=== PATIENT | male | born 1960 | race Caucasian/White ===

== ENCOUNTER 2019-10-28 13:33 | Outpatient (RCR) | payer MEDICARE, SELFPAY | END 2019-11-21 23:59 | disposition home or self-care (01) | LOC: SPT 13:33 | PROVIDERS: Family Provider Family Medicine; PCP Family Medicine; Referring Provider Specialist; Visit Provider Specialist | DX: S83.412D Sprain of medial collateral ligament of left knee, subsequent encounter (principal); X58.XXXD Exposure to other specified factors, subsequent encounter | CPT/HCPCS: 97110; 97161 ==

== ENCOUNTER → 2019-10-29 13:52 | Outpatient (BNVA) | payer MEDICARE, SELFPAY | PROVIDERS: Family Provider Family Medicine; PCP Family Medicine; Visit Provider Family Medicine | DX: J44.9 Chronic obstructive pulmonary disease, unspecified (principal); E78.5 Hyperlipidemia, unspecified; I10 Essential (primary) hypertension; E11.9 Type 2 diabetes mellitus without complications; F17.219 Nicotine dependence, cigarettes, with unspecified nicotine-induced disorders; D17.0 Benign lipomatous neoplasm of skin and subcutaneous tissue of head, face and neck | CPT/HCPCS: 36415; 80053; 80061; 82044; 83036; 85007; 85027 ==

== ENCOUNTER 2019-11-12 15:07 | Inpatient (IN) | payer MEDICARE, SELFPAY ==
[2019-11-12] VITALS (11 sets, daily range): BP systolic 154–197; BP diastolic 78–92; PULSE 83–98; RESP 17–25; TEMP 36.8–37; O2SAT 78–99; BMI 32.5
--- NOTE | 2019-11-12 15:29 | XRR_ITS ---
PROCEDURE INFORMATION: Exam: XR Chest, 1 View Exam date and time: 11/12/2019 4:34 PM Age: 59 years old Clinical indication: Cough and other: Congestion; Additional info: Dyspnea TECHNIQUE: Imaging protocol: XR of the chest Views: 1 view. COMPARISON: CR Chest 2 views* [id number] 07/01/2019 4:05 PM FINDINGS: Lungs: Right hilar and bilateral lower lobe vascular congestion. Pleural space: Unremarkable. No pleural effusion. No pneumothorax. Heart/Mediastinum: Unremarkable. No cardiomegaly. Bones/joints: Unremarkable. XR/XR chest 1V portable [id number] IMPRESSION: Right dale and bilateral lower lobe vascular congestion Otherwise No acute findings.
--- NOTE | 2019-11-12 15:31 | ECG_ITS ---
Measurements Intervals [place] Rate: 93 P: 69 HI: 183 QRS: -34 QRSD: 118 T: 69 QT: 372 QTc: 465 SINUS RHYTHM LEFT AXIS DEVIATION [QRS AXIS < -30] INCOMPLETE RIGHT BUNDLE BRANCH BLOCK [90+ ms QRS DURATION, TERMINAL R IN V1/V2, 40+ ms S IN I/aVL/V4/V5/V6] MINIMAL ST DEPRESSION [0.025+ mV ST DEPRESSION] Compared to ECG 10/25/2017 17:58:22 Left-axis deviation now present ST (T wave) deviation now present Electronically Signed On 11-12-2019 20:29:19 FELTING MACHINE OPERATOR HELPER by Elke Davila M.D. [id number]
--- NOTE | 2019-11-12 15:45 | W.ED.SOB ---
HPI - SOB/Dyspnea General: Chief Complaint: Shortness of Breath/Dyspnea Stated Complaint: SOB, 85 O2 and COPD Time Seen by Provider: 11/12/19 15:29 History of Present Illness: HPI Narrative: 59-year-old male presents with acute shortness of breath and hypoxia. He is recent diagnosis COPD does use inhaled medications at home and is on oxygen at home he does not have any nebulizers he has increase in productive discolored sputum over the last several days and a low-grade fever denies abdominal pain or chest pain. Associated symptoms: Reports chest pain, fever(s) and nausea; Deny abdominal pain, orthopnea or vomiting Review of Systems Const: Reports: fever, chills, body aches, change in appetite, fatigue and malaise ENMT: Reports: nasal discharge and nasal congestion; Denies: throat pain or ear pain Card: Reports: chest pain and shortness of breath on exertion; Denies: edema or shortness of breath when lying down Resp: Reports: shortness of breath and productive cough; Denies: non-productive cough GI: Reports: nausea; Denies: abdominal pain, vomiting, vomiting blood, coffee grounds in vomit, diarrhea, constipation, bloating, blood in stool or black tarry stool : Denies: flank pain, painful urination, urinary frequency or urinary urgency Skin/Breast: Denies: rash or itching PFSH ED PFSH: Statuses (acute, chronic, etc) shown below reflect problem list status as previously entered and may not be historically accurate Family History Father Diabetes Stroke Bleeding disorder Mother Diabetes Cancer SKIN Other CAD (coronary artery disease) Lung disease Denies family history of Anesthesia complication Social History Smoking and tobacco status: current every day smoker cigarettes Alcohol intake: never Household members: spouse Marital status: Current occupational status: disabled Physical Exam Const: COMMON NORMALS: no apparent distress GENERAL APPEARANCE: cooperative and comfortable ORIENTATION/CONSCIOUSNESS: Yes awake, Yes oriented to person, Yes oriented to place and Yes oriented to time HENMT: COMMON NORMALS: normocephalic, head/scalp atraumatic, hearing grossly normal bilaterally, external ears normal, EAC's normal, TM's normal bilaterally, nasal mucous membranes and turbinates normal, moist oral mucous membranes and oropharynx normal HEAD & SCALP: normocephalic and atraumatic NOSE: nasal mucous membranes and turbinates normal EXTERNAL EAR: Yes external ears normal EXTERNAL AUDITORY CANAL: EAC's normal TYMPANIC MEMBRANE: TM's normal bilaterally Eye: COMMON NORMALS: PERRL, EOMs intact bilaterally, conjunctivae normal and no scleral icterus CONJUNCTIVA: Yes conjunctivae normal PUPIL: Yes PERRL Neck/C-Spine: COMMON NORMALS: full ROM, no lymphadenopathy, supple and no JVD Lymph: LYMPHATIC: no lymphadenopathy noted and no lymphedema noted Resp: EFFORT & INSPECTION: No able to speak in complete sentences, Yes respiratory distress, Yes pursed lip breathing, Yes labored, Yes uses accessory muscles and Yes audible wheezes AUSCULTATION: rales diffuse and wheezes throughout Cardio: COMMON NORMALS: no JVD, regular rate, regular rhythm and no murmurs RATE: regular rate RHYTHM: regular rhythm GI: COMMON NORMALS: soft to palpation and no hepatosplenomegaly AUSCULTATION: Yes normoactive bowel sounds PALPATION: Yes soft, No tender, No guarding and Yes no hepatosplenomegaly Extremity: COMMON NORMALS: normal to inspection, normal capillary refill, no clubbing, cyanosis or edema, no calf tenderness and no pedal edema Neuro: SENSORIUM/ORIENTATION: Yes oriented to person, Yes oriented to place and Yes oriented to time Skin: COMMON NORMALS: no rashes or lesions noted GENERAL SKIN EXAM: no rashes or lesions noted Course Vital Signs: Vital signs: Vital Signs Temperature 97.7 F 11/14/19 11:30 Pulse Rate 93 11/14/19 11:30 Respiratory Rate 17 11/14/19 11:30 Blood Pressure 148/78 11/14/19 11:30 Pulse Oximetry 94 11/14/19 11:30 MDM - SOB/Dyspnea Lab Data: Labs: Lab Results 11/12/19 11/12/19 11/12/19 Range/Units 15:47 15:47 15:49 WBC 9.3 (4.0-10.0) 10^3/ uL RBC 4.52 (4.1-5.3) 10^6/u L Hgb 14.0 (11.7-16.6) g/dL Hct 42.3 (42.0-52.0) % MCV 93.6 (80-94) fL MCH 31.0 (28.0-34.0) pg MCHC 33.1 (30.0-36.0) g/dL RDW 13.5 (12.1-15.1) % Plt Count 187 (130-400) 10^3/c mm MPV 10.4 (7.4-10.4) fL Neut % (Auto) 70.5 % Lymph % (Auto) 22.2 % [place] % (Auto) 4.2 % Eos % (Auto) 2.2 % Baso % (Auto) 0.1 % Neut # (Auto) 6.5 (1.8-7.7) 10^3/u L Lymph # (Auto) 2.1 (0.8-4.8) 10^3/u L [place] # (Auto) 0.4 (0.2-0.9) 10^3/u L Eos # (Auto) 0.2 (0.0-0.8) 10^3/u L Baso # (Auto) 0.0 (0.0-0.1) 10^3/u L Nucleated RBC % (a uto) 0 % Nucleated RBCs # 0.0 /100WBC Specimen Type Arterial Sample Site Radial, right ABG pH 7.40 (7.35-7.45) ABG pCO2 48.1 H (35-45) mmHg ABG pO2 99.3 (80.0-100.0) mmH g ABG HCO3 30.0 H (22-26) mmol/L ABG Base Excess 4.2 H (-2.0-2.0) mmol/ L Jonathan Test Pos Hematocrit 43.5 (42-52) % Hgb O2 Saturation 96.6 (95-100) % Carboxyhemoglobin 0.9 (0.4-20.1) %THgb Methemoglobin 0.3 L (0.4-1.5) % Total Hemoglobin 14.2 (14-18) g/dL O2 Delivery Device Nrb O2 Liters/Min 15.0 % Business Intelligence Developer ID ed Sodium (136-145) mmol/L Potassium (3.5-5.1) mmol/L Chloride (98-107) mmol/L Carbon Dioxide (22-29) mmol/L Anion Gap (5-19) BUN (6-20) mg/dL Creatinine (0.7-1.2) mg/dL GFR Calculation (90-130) mL/min Glucose (74-109) mg/dL Lactate 3.1 H (0.5-2.2) mmol/L Calcium (8.6-10.0) mg/Dl Total Bilirubin (0.15-1.2) mg/dL AST (0-40) U/L ALT (0-41) U/L Alkaline Phosphata se (40-130) IU/L Troponin T Baselin e (0-15) ng/mL NT-Pro-B Natriuret Pep (0-125) pg/mL Total Protein (6.6-8.7) g/dL Albumin (3.5-5.2) g/dL Globulin (1.3-4.6) g/dL Influenza Type A A g (Negative) POC Influenza B Ag (Negative) 11/12/19 11/12/19 11/12/19 Range/Units 16:12 16:20 16:20 WBC (4.0-10.0) 10^3/ uL RBC (4.1-5.3) 10^6/u L Hgb (11.7-16.6) g/dL Hct (42.0-52.0) % MCV (80-94) fL MCH (28.0-34.0) pg MCHC (30.0-36.0) g/dL RDW (12.1-15.1) % Plt Count (130-400) 10^3/c mm MPV (7.4-10.4) fL Neut % (Auto) % Lymph % (Auto) % [place] % (Auto) % Eos % (Auto) % Baso % (Auto) % Neut # (Auto) (1.8-7.7) 10^3/u L Lymph # (Auto) (0.8-4.8) 10^3/u L [place] # (Auto) (0.2-0.9) 10^3/u L Eos # (Auto) (0.0-0.8) 10^3/u L Baso # (Auto) (0.0-0.1) 10^3/u L Nucleated RBC % (a uto) % Nucleated RBCs # /100WBC Specimen Type Sample Site ABG pH (7.35-7.45) ABG pCO2 (35-45) mmHg ABG pO2 (80.0-100.0) mmH g ABG HCO3 (22-26) mmol/L ABG Base Excess (-2.0-2.0) mmol/ L Jonathan Test Hematocrit (42-52) % Hgb O2 Saturation (95-100) % Carboxyhemoglobin (0.4-20.1) %THgb Methemoglobin (0.4-1.5) % Total Hemoglobin (14-18) g/dL O2 Delivery Device O2 Liters/Min % Business Intelligence Developer ID Sodium 134 L (136-145) mmol/L Potassium 3.6 (3.5-5.1) mmol/L Chloride 94 L (98-107) mmol/L Carbon Dioxide 27 (22-29) mmol/L Anion Gap 16.6 (5-19) BUN 8 (6-20) mg/dL Creatinine 0.8 (0.7-1.2) mg/dL GFR Calculation 99.6 (90-130) mL/min Glucose 204 H (74-109) mg/dL Lactate (0.5-2.2) mmol/L Calcium 9.0 (8.6-10.0) mg/Dl Total Bilirubin 0.5 (0.15-1.2) mg/dL AST 28 (0-40) U/L ALT 32 (0-41) U/L Alkaline Phosphata se 134 H (40-130) IU/L Troponin T Baselin e 12 (0-15) ng/mL NT-Pro-B Natriuret Pep (0-125) pg/mL Total Protein 6.2 L (6.6-8.7) g/dL Albumin 3.4 L (3.5-5.2) g/dL Globulin 2.8 (1.3-4.6) g/dL Influenza Type A A g Negative (Negative) POC Influenza B Ag Negative (Negative) 11/12/19 Range/Units 16:20 WBC (4.0-10.0) 10^3/ uL RBC (4.1-5.3) 10^6/u L Hgb (11.7-16.6) g/dL Hct (42.0-52.0) % MCV (80-94) fL MCH (28.0-34.0) pg MCHC (30.0-36.0) g/dL RDW (12.1-15.1) % Plt Count (130-400) 10^3/c mm MPV (7.4-10.4) fL Neut % (Auto) % Lymph % (Auto) % [place] % (Auto) % Eos % (Auto) % Baso % (Auto) % Neut # (Auto) (1.8-7.7) 10^3/u L Lymph # (Auto) (0.8-4.8) 10^3/u L [place] # (Auto) (0.2-0.9) 10^3/u L Eos # (Auto) (0.0-0.8) 10^3/u L Baso # (Auto) (0.0-0.1) 10^3/u L Nucleated RBC % (a uto) % Nucleated RBCs # /100WBC Specimen Type Sample Site ABG pH (7.35-7.45) ABG pCO2 (35-45) mmHg ABG pO2 (80.0-100.0) mmH g ABG HCO3 (22-26) mmol/L ABG Base Excess (-2.0-2.0) mmol/ L Jonathan Test Hematocrit (42-52) % Hgb O2 Saturation (95-100) % Carboxyhemoglobin (0.4-20.1) %THgb Methemoglobin (0.4-1.5) % Total Hemoglobin (14-18) g/dL O2 Delivery Device O2 Liters/Min % Business Intelligence Developer ID Sodium (136-145) mmol/L Potassium (3.5-5.1) mmol/L Chloride (98-107) mmol/L Carbon Dioxide (22-29) mmol/L Anion Gap (5-19) BUN (6-20) mg/dL Creatinine (0.7-1.2) mg/dL GFR Calculation (90-130) mL/min Glucose (74-109) mg/dL Lactate (0.5-2.2) mmol/L Calcium (8.6-10.0) mg/Dl Total Bilirubin (0.15-1.2) mg/dL AST (0-40) U/L ALT (0-41) U/L Alkaline Phosphata se (40-130) IU/L Troponin T Baselin e (0-15) ng/mL NT-Pro-B Natriuret Pep 407 H (0-125) pg/mL Total Protein (6.6-8.7) g/dL Albumin (3.5-5.2) g/dL Globulin (1.3-4.6) g/dL Influenza Type A A g (Negative) POC Influenza B Ag (Negative) Discharge Plan Discharge Patient Disposition: Admitted As Inpatient Admit Provider: Rico Hernandez Clinical Impression: Acute respiratory failure, COPD, moderate, Controlled type 2 diabetes mellitus, without long-term current use of insulin, Essential (primary) hypertension, Chronic back pain Condition: Stable Interventions: ED Discharge Assessment Last Done: 11/12/19 18:20 Discharge Date/Time: 11/12/19 19:01 Coding Level of Care Code ED Hooker Operator for Jens Boone Exam Problem Focused
[2019-11-12] MEDS: sodium chloride 0.9% 1,000 ML 999 ML IV (15:58)
[2019-11-12] MEDS: ondansetron 2 mg/ML SDV 2 mL 4 MG IVP (15:58)
[2019-11-12 16:01] LABS: ABG PCO2 48.1 mmHg (35-45); Arterial Blood Gas Hematocrit 43.5 % (42-52); Base Excess ABG 4.2 mmol/L (-2.0-2.0); Blood Gas Allen Test Pos; Blood Gas Sample Site Radial, right; Blood Gas Sample Type Arterial; Carboxyhemoglobin 0.9 %THgb (0.4-20.1); HGB O2 Sat 96.6 % (95-100); Methemoglobin 0.3 % (0.4-1.5); Oxygen Device NRB; PO2 ABG 99.3 mmHg (80.0-100.0); Total Hemoglobin 14.2 g/dL (14-18)
[2019-11-12 16:02] LABS: Basophils % 0.1 %; Eosinophils # 0.2 10^3/uL (0.0-0.8); Eosinophils % 2.2 %; Hematocrit 42.3 % (42.0-52.0); Lymphocytes # 2.1 10^3/uL (0.8-4.8); Lymphocytes % 22.2 %; Mean Corpuscular HGB Conc 33.1 g/dL (30.0-36.0); Mean Corpuscular Volume 93.6 fL (80-94); Mean Platelet Volume 10.4 fL (7.4-10.4); Monocytes # 0.4 10^3/uL (0.2-0.9); Monocytes % 4.2 %; Neutrophils # 6.5 10^3/uL (1.8-7.7); Neutrophils % 70.5 %; Nucleated Red Blood Cells % 0 %; Platelet Count 187 10^3/cmm (130-400); Red Blood Count 4.52 10^6/uL (4.1-5.3); Red Cell Distribution Width 13.5 % (12.1-15.1); White Blood Count 9.3 10^3/uL (4.0-10.0)
[2019-11-12 16:53] LABS: Influenza A by IFA Negative (Negative); Influenza B by IFA Negative (Negative)
[2019-11-12 17:06] LABS: Lactate (Lactic Acid level) 3.1 mmol/L (0.5-2.2)
[2019-11-12] MEDS: piperacillin-tazobactam 3.375 GM in sodium chloride 0.9% (plus) 50 ML IV (17:10)
--- NOTE | 2019-11-12 17:11 | PC.NURSE ---
pt on bipap ventilation
--- NOTE | 2019-11-12 17:11 | PC.NURSE ---
hospitalist (Dr. Hernandez) in to see pt in ER
[2019-11-12 17:12] LABS: Alanine Aminotransferase 32 U/L (0-41); Albumin Level 3.4 g/dL (3.5-5.2); Alkaline Phosphatase 134 IU/L (40-130); Anion Gap 16.6 (5-19); Aspartate Amino Transferase 28 U/L (0-40); Blood Urea Nitrogen 8 mg/dL (6-20); Carbon Dioxide 27 mmol/L (22-29); Chloride 94 mmol/L (98-107); Globulin 2.8 g/dL (1.3-4.6); Glomerular Filtration Rate 99.6 mL/min (90-130); Glucose 204 mg/dL (74-109); Potassium 3.6 mmol/L (3.5-5.1); Sodium 134 mmol/L (136-145); Total Bilirubin 0.5 mg/dL (0.15-1.2); Total Protein 6.2 g/dL (6.6-8.7)
[2019-11-12 17:14] LABS: Troponin(5th) Baseline 12 ng/mL (0-15)
--- NOTE | 2019-11-12 17:31 | ECG_ITS ---
Measurements Intervals [place] Rate: 92 P: 68 [place]: 182 QRS: -33 QRSD: 114 T: 61 QT: 386 QTc: 478 SINUS RHYTHM MARKED LEFT AXIS DEVIATION [QRS AXIS < -30] INCOMPLETE RIGHT BUNDLE BRANCH BLOCK [90+ ms QRS DURATION, TERMINAL R IN V1/V2, 40+ ms S IN I/aVL/V4/V5/V6] Compared to ECG 10/25/2017 17:58:22 Left-axis deviation now present Electronically Signed On 11-12-2019 20:36:26 POST HOLE DIGGING MACHINE OPERATOR by Elke Davila M.D. [id number]
[2019-11-12] MEDS: labetalol 5 mg/mL SDV 20mL 20 MG IVP ×2 (17:40→21:22)
[2019-11-12] MEDS: levofloxacin-dextrose 5 % 750 MG/150 ML PREMIX 150 MG IV (17:46)
[2019-11-12 18:26] LABS: Troponin 5 2HR 11.69 ng/mL (0-15)
[2019-11-12 18:27] LABS: Troponin 5 2HR Delta -0.31 ABS# (0-10)
--- NOTE | 2019-11-12 18:31 | PM.HP ---
Providers/Chief Complaint Admitting Physician: Rico Hernandez MD Primary Care Provider: Madeline Shields DO Chief Complaint: SOB, 85 O2 and COPD History of Present Illness Troy Goode is a 59 year old male with a past medical history of COPD, current smoker, chronic back pain on multiple medications including opiates, type 2 diabetes mellitus, hyperlipidemia, hypertension who presents to the emergency room due to complaints of shortness of breath, cough, fevers. Patient's is at bedside, as patient is on BiPAP, most of the history was provided by her. Patient was able to add to the history. Patient states that he has had a cough, productive yellow-green sputum, shortness of breath with exertion, intermittent fevers, chills for the last week or so. Symptoms progressively got worse, they were planning on coming to the emergency room the last 2 days, but due to the wait time they decided to stay at home. Patient's is sick with a cough runny nose. Patient presented to Dr. Shields's office this morning, was given antibiotics, steroids, and advised that if his symptoms were to worsen he should go to the emergency room. Unfortunately patient over the afternoon became more short of breath, short of breath at rest so his brought him to the emergency room. Denies chest pain. Is a current smoker. No oxygen use at home. No history of heart failure. No history of CAD. Review of Systems Const: Reports: fever and chills Eyes: Denies: blurry vision ENMT: Reports: throat pain Card: Denies: chest pain or palpitations Resp: Reports: shortness of breath, productive cough and change in phlegm color GI: Denies: abdominal pain, nausea or vomiting : Denies: flank pain or difficulty urinating Musc: Denies: neck pain or back pain Skin/Breast: Denies: rash Neuro: Denies: headache Endo: Denies: excessive urination or excessive thirst Medications/Allergies Allergies Allergy/AdvReac Type Severity Reaction Status Date / Time amitriptyline Allergy ALGY-Conges Verified 11/12/19 10:28 sonia metformin Allergy ADR-Diarrhe Verified 11/12/19 10:28 a temazepam Allergy ALGY-Conges Verified 11/12/19 10:28 sonia Additional Medication Information Additional Medication Information: Albuterol Atenolol 50 mg once daily Atorvastatin 40 g once daily baclofen 20 mg 4 times daily Duloxetine 60 mg twice daily Lasix 20 mg in the morning Glipizide 5 mg once daily Meloxicam 50 mg once daily Morphine 15 mg immediate release 5 times daily as needed Morphine 60 mg extended release 24-hour 60 mg twice daily Lyrica 150 mg 4 times daily Trazodone 200 mg q. nightly Verapamil 240 mg p.o. every morning PFSH Acute PFSH: Statuses (acute, chronic, etc) shown below reflect problem list status as previously entered and may not be historically accurate Medical History (Updated 11/12/19 @ 18:38 by Rico Hernandez MD) Chronic back pain (Acute) Controlled type 2 diabetes mellitus, without long-term current use of insulin (Chronic) COPD, moderate (Chronic) Dyslipidemia (Chronic) Essential (primary) hypertension (Chronic) Gastritis (Acute) Hypothyroidism, unspecified (Acute) Vitamin D deficiency (Acute) Surgical History H/O circumcision (Acute) H/O colonoscopy (Acute) 11/20/2016 H/O esophagogastroduodenoscopy (Acute) 2014 H/O knee surgery (Acute) H/O oral surgery (Acute) H/O shoulder surgery (Acute) left to remove mass History of back surgery (Acute) Social History Smoking and tobacco status: current every day smoker cigarettes Alcohol intake: never Household members: spouse Marital status: Current occupational status: disabled Vitals/I&O/Wt Last Vital Signs Temp 98.3 F 11/12/19 15:34 Pulse 94 11/12/19 18:09 Resp 25 H 11/12/19 17:11 BP 192/92 11/12/19 17:11 Pulse Ox 94 11/12/19 18:09 Weight last 48 hrs Weight 94.347 kg Physical Exam Const: COMMON NORMALS: no apparent distress and oriented x3 HENMT: COMMON NORMALS: normocephalic Eye: COMMON NORMALS: PERRL and EOMs intact bilaterally Neck/C-Spine: COMMON NORMALS: full ROM, no lymphadenopathy and no JVD Lymph: LYMPHATIC: no lymphadenopathy noted Chest: COMMONS NORMALS: inspection of chest normal Resp: COMMON NORMALS: normal respiratory effort, no retractions, no use of accessory muscles and clear to auscultation bilaterally Cardio: COMMON NORMALS: no JVD, regular rate, regular rhythm, S1 normal heart sound, S2 normal heart sound and no gallops GI: COMMON NORMALS: normal to inspection, nondistended, normoactive bowel sounds, soft to palpation, non-tender and no hepatosplenomegaly : COMMON NORMALS: Yes no CVA tenderness Back/Pelvis: COMMON NORMALS: no CVA tenderness Extremity: COMMON NORMALS: normal capillary refill, no clubbing, cyanosis or edema and no pedal edema Neuro: COMMON NORMALS: oriented x3, CN's II-XII intact bilaterally and moves all extremities Skin: COMMON NORMALS: no rashes or lesions noted Data : 11/12/19 15:47 11/12/19 16:20 CXR: Radiologist's impression: IMPRESSION: Right dale and bilateral lower lobe vascular congestion Otherwise No acute findings. A&P Assessment and plan (1) Acute respiratory failure: -Acute respiratory failure secondary to COPD exacerbation and bilateral lower lobe pneumonia Plan: -Admit to general medical floors -BiPAP -Telemetry monitoring -Solu-Medrol -Nebulizer treatments -Azithromycin and Rocephin -Monitor respiratory status closely Status: Acute Code(s): J96.00 - Acute respiratory failure, unspecified whether with hypoxia or hypercapnia (2) COPD, moderate: Status: Chronic Code(s): J44.9 - Chronic obstructive pulmonary disease, unspecified (3) Controlled type 2 diabetes mellitus, without long-term current use of insulin: -Low-dose sliding scale Status: Chronic Qualifiers: Diabetes mellitus complication status: without complication Qualified Code(s): E11.9 - Type 2 diabetes mellitus without complications Code(s): E11.9 - Type 2 diabetes mellitus without complications (4) Essential (primary) hypertension: Status: Chronic Code(s): I10 - Essential (primary) hypertension (5) Chronic back pain: -Patient is on morphine 60 mg extended release twice daily, immediate release 15 mg 4 times daily, Lyrica 150 mg 4 times daily, meloxicam, baclofen -Which carries a high risk of respiratory depression given his acute respiratory failure as above -But has has been on this medication for some time, he has a high risk of withdrawal -Will monitor respiratory status very closely, and hold medications if required, but only for short time Status: Acute Code(s): M54.9 - Dorsalgia, unspecified; G89.29 - Other chronic pain (6) Dyslipidemia: Status: Chronic Code(s): E78.5 - Hyperlipidemia, unspecified (7) Nicotine dependence, cigarettes, with unspecified nicotine-induced disorders: Status: Chronic Code(s): F17.219 - Nicotine dependence, cigarettes, with unspecified nicotine-induced disorders Attestations Medical Necessity Statement*: Patient requires hospitalization, inpatient, greater than 2 midnights, acute respiratory failure secondary to pneumonia COPD exacerbation Coding Level of Care Code Acute Traffic Investigator for [facility] Diagnoses Acute respiratory failure J96.00 COPD, moderate J44.9 Controlled type 2 diabetes mellitus, without long-term current use of insulin E11.9 Diabetes mellitus complication status: without complication Essential (primary) hypertension I10 Chronic back pain M54.9; G89.29 Dyslipidemia E78.5 Nicotine dependence, cigarettes, with unspecified nicotine-induced disorders F17.219
[2019-11-12 19:14] LABS: NT Pro B Type Natriuretic Pept 407 pg/mL (0-125)
[2019-11-12] MEDS: duloxetine 60 mg Capsule PO (19:36)
[2019-11-12] MEDS: morphine IR 15 mg Tablet PO (19:36)
[2019-11-12] MEDS: ondansetron 4 MG Tablet PO (19:36)
[2019-11-12] MEDS: enoxaparin 40 mg/0.4 mL Syringe SUBCUT (19:37)
[2019-11-12] MEDS: D5-NS 0.45% + KCL 20 mEq 20 MEQ/1,000 ML BAG 100 MEQ IV (19:37)
[2019-11-12] MEDS: tamsulosin 0.4 mg Capsule PO (19:37)
[2019-11-12 20:49] LABS: NT Pro B Type Natriuretic Pept 366 pg/mL (0-125)
[2019-11-12] MEDS: pregabalin 150 mg Capsule PO (21:12)
[2019-11-12] MEDS: sodium chloride 0.9% 1,000 ML 75 ML IV (21:12)
[2019-11-12] MEDS: baclofen 10 mg Tablet 20 MG PO (21:12)
[2019-11-12 21:43] LABS: Glucose Point of Care 303 mg/dL (70-110)
[2019-11-12] MEDS: ipratropium-albuterol 3 mL Neb INHALATION (21:56)
[2019-11-12 22:39] LABS: Troponin 5 6HR 11.48 ng/L (0-15)
[2019-11-12 22:53] LABS: Troponin 5 6HR Delta -0.52 ng/L (0-12)
[2019-11-12] MEDS: trazodone 100 mg Tablet 200 MG PO (23:27)
[2019-11-13] VITALS (19 sets, daily range): BP systolic 133–184; BP diastolic 75–91; PULSE 71–98; RESP 17–22; TEMP 36.5–37.1; O2SAT 91–98
[2019-11-13] MEDS: ipratropium-albuterol 3 mL Neb INHALATION ×6 (01:30→19:45)
[2019-11-13] MEDS: acetaminophen 325 mg Tablet 650 MG PO (05:30)
[2019-11-13] MEDS: FUROsemide 20 mg Tablet PO (05:31)
[2019-11-13 05:36] LABS: Basophils % 0.2 %; Hematocrit 41.7 % (42.0-52.0); Hemoglobin 13.6 g/dL (11.7-16.6); Lymphocytes # 2.5 10^3/uL (0.8-4.8); Lymphocytes % 21.1 %; Mean Corpuscular HGB Conc 32.6 g/dL (30.0-36.0); Mean Corpuscular Hemoglobin 29.8 pg (28.0-34.0); Mean Corpuscular Volume 91.2 fL (80-94); Monocytes # 0.4 10^3/uL (0.2-0.9); Monocytes % 3.3 %; Neutrophils # 8.9 10^3/uL (1.8-7.7); Neutrophils % 74.7 %; Nucleated Red Blood Cells % 0 %; Platelet Count 198 10^3/cmm (130-400); Red Blood Count 4.57 10^6/uL (4.1-5.3); Red Cell Distribution Width 13.6 % (12.1-15.1); White Blood Count 11.9 10^3/uL (4.0-10.0)
[2019-11-13 05:53] LABS: Alanine Aminotransferase 31 U/L (0-41); Albumin Level 3.7 g/dL (3.5-5.2); Alkaline Phosphatase 143 IU/L (40-130); Anion Gap 15.4 (5-19); Aspartate Amino Transferase 25 U/L (0-40); Blood Urea Nitrogen 11 mg/dL (6-20); Calcium 9.3 mg/Dl (8.6-10.0); Carbon Dioxide 28 mmol/L (22-29); Chloride 103 mmol/L (98-107); Globulin 3.2 g/dL (1.3-4.6); Glucose 227 mg/dL (74-109); Magnesium 2.3 mg/dL (1.7-2.3); Phosphorus 3.2 mg/dL (2.5-4.5); Potassium 4.4 mmol/L (3.5-5.1); Sodium 142 mmol/L (136-145); Total Bilirubin 0.3 mg/dL (0.15-1.2); Total Protein 6.9 g/dL (6.6-8.7)
[2019-11-13 06:58] LABS: Glucose Point of Care 248 mg/dL (70-110)
[2019-11-13] MEDS: morphine ER (12 HR) 30 mg tablet 60 MG PO ×2 (09:17→17:51)
[2019-11-13] MEDS: meloxicam 7.5 mg tablet 15 MG PO (09:17)
[2019-11-13] MEDS: tamsulosin 0.4 mg Capsule PO ×2 (09:17→17:51)
[2019-11-13] MEDS: atorvastatin 40 mg Tablet PO (09:18)
[2019-11-13] MEDS: ferrous sulfate EC 325 mg Tablet PO (09:18)
[2019-11-13] MEDS: pregabalin 150 mg Capsule PO ×4 (09:18→20:39)
[2019-11-13] MEDS: atenolol 50 mg Tablet PO (09:18)
[2019-11-13] MEDS: duloxetine 60 mg Capsule PO ×2 (09:18→17:51)
[2019-11-13] MEDS: sodium chloride 0.9% 1,000 ML 75 ML IV (09:19)
[2019-11-13] MEDS: azithromycin 500 MG in sodium chloride 0.9% 250 ML 250 MG IV (09:35)
[2019-11-13] MEDS: verapamil ER 240 mg Tablet PO (09:40)
[2019-11-13] MEDS: cholecalciferol (vitamin D3) 5,000 unit Tablet 5000 UNIT PO (09:40)
--- NOTE | 2019-11-13 10:36 | CT_ITS ---
WS: [id number] CTA OF THE CHEST WITH PULMONARY EMBOLISM PROTOCOL TECHNIQUE: High-resolution contrast enhanced CTA of the chest with coronal and sagittal reformatted i mages with pulmonary embolism protocol. MIP images are also reviewed. CLINICAL INFORMATION: r/o PE COMPARISON: October 25, 2017 DLP: 1167.[address] scans at [facility] use at least one of these dose optimization techniques: automat ed exposure control; mA and/or kV adjustment per patient size (includes targeted exams where dose is matched to clinical indication); or iterative reconstruction. FINDINGS: Proximal main pulmonary arteries are normal. Segmental and subsegmental pulmonary arteries are normal . No evidence for pulmonary embolus. Normal caliber thoracic aorta. No mediastinal or hilar lymphaden opathy. Normal endobronchial tree. Subsegmental atelectasis left lung base. Hazy groundglass infiltrates within the right upper lobe. Gr oundglass and tree-in-bud infiltrates in both lower lobes can be seen with pneumonitis or bronchiolit is. No focal consolidation. Adrenal glands are normal. Small esophageal hiatal hernia. Splenic granulomas. CT/CT angio chest PE protcl [id number] IMPRESSION: 1. No evidence of pulmonary embolus. 2. Hazy groundglass infiltrates within the right upper lobe. Tree-in-bud infil trates in both lower lobes. Findings can be seen with pneumonitis and bronchiol itis. 3. Subsegmental atelectasis left lung base. 4. No focal consolidation.
[2019-11-13] MEDS: cefTRIAXone 1,000 MG in sodium chloride 0.9% (plus) 50 ML 100 MG IV (11:36)
[2019-11-13] MEDS: iohexol 350 mg/mL 100 mL Btl IV ×2 (12:14→12:22)
[2019-11-13 12:30] LABS: Glucose Point of Care 173 mg/dL (70-110)
--- NOTE | 2019-11-13 14:46 | PM.PN ---
Subjective Subjective: Interval history: This morning patient states that his breathing has improved, still requiring up to 5 L oxygen, had poor sleep last night, no chest pain, no palpitations, Vitals/I&O/Wt Last Vital Signs Temp 97.7 F 11/13/19 11:59 Pulse 80 11/13/19 11:59 Resp 18 11/13/19 11:59 BP 150/80 11/13/19 11:59 Pulse Ox 92 11/13/19 11:43 11/12/19 11/13/19 11/13/19 22:59 06:59 14:59 Intake Total 158.333 / 158.333 240 / 398.333 908.75 / 908.75 Output Total 960 / 960 1920 / 2880 750 / 750 Balance -801.667 / -801.667 -1680 / -2481.667 158.75 / 158.75 Weight last 48 hrs Weight 94.347 kg Physical Exam Const: COMMON NORMALS: no apparent distress and oriented x3 HENMT: COMMON NORMALS: normocephalic HEAD & SCALP: normocephalic Neck/C-Spine: COMMON NORMALS: no JVD Lymph: LYMPHATIC: no lymphadenopathy noted Chest: COMMONS NORMALS: inspection of chest normal Resp: COMMON NORMALS: normal respiratory effort, no retractions, no use of accessory muscles and clear to auscultation bilaterally AUSCULTATION: clear to auscultation bilaterally Cardio: COMMON NORMALS: no JVD, regular rate, regular rhythm, S1 normal heart sound, S2 normal heart sound and no gallops RATE: regular rate RHYTHM: regular rhythm HEART SOUNDS: S1 normal and S2 normal GI: COMMON NORMALS: normal to inspection, nondistended, normoactive bowel sounds, soft to palpation, non-tender and no hepatosplenomegaly PALPATION: Yes soft and Yes no hepatosplenomegaly Neuro: COMMON NORMALS: oriented x3 Data : 11/13/19 05:25 11/13/19 05:25 Micro: Microbiology 11/12/19 23:00 MRSA Culture - Final Nose A&P Assessment and plan (1) Acute respiratory failure: -Acute respiratory failure secondary to COPD exacerbation and bilateral lower lobe pneumonia Plan: -Admit to general medical floors -BiPAP PRN -Telemetry monitoring -Solu-Medrol -Nebulizer treatments -Azithromycin and Rocephin -Monitor respiratory status closely -We will do CT Dianne of the chest to rule out pulmonary embolism Status: Acute Code(s): J96.00 - Acute respiratory failure, unspecified whether with hypoxia or hypercapnia (2) COPD, moderate: Status: Chronic Code(s): J44.9 - Chronic obstructive pulmonary disease, unspecified (3) Controlled type 2 diabetes mellitus, without long-term current use of insulin: -Low-dose sliding scale Status: Chronic Qualifiers: Diabetes mellitus complication status: without complication Qualified Code(s): E11.9 - Type 2 diabetes mellitus without complications Code(s): E11.9 - Type 2 diabetes mellitus without complications (4) Essential (primary) hypertension: Status: Chronic Code(s): I10 - Essential (primary) hypertension (5) Chronic back pain: -Patient is on morphine 60 mg extended release twice daily, immediate release 15 mg 4 times daily, Lyrica 150 mg 4 times daily, meloxicam, baclofen -Which carries a high risk of respiratory depression given his acute respiratory failure as above -But has has been on this medication for some time, he has a high risk of withdrawal -Will monitor respiratory status very closely, and hold medications if required, but only for short time Status: Acute Code(s): M54.9 - Dorsalgia, unspecified; G89.29 - Other chronic pain (6) Dyslipidemia: Status: Chronic Code(s): E78.5 - Hyperlipidemia, unspecified (7) Nicotine dependence, cigarettes, with unspecified nicotine-induced disorders: Status: Chronic Code(s): F17.219 - Nicotine dependence, cigarettes, with unspecified nicotine-induced disorders Attestations Medical Necessity Statement*: She requires continued hospitalization due to acute respiratory failure Coding Level of Care Code Acute Community Aide for [facility] Diagnoses Acute respiratory failure J96.00 COPD, moderate J44.9 Controlled type 2 diabetes mellitus, without long-term current use of insulin E11.9 Diabetes mellitus complication status: without complication Essential (primary) hypertension I10 Chronic back pain M54.9; G89.29 Dyslipidemia E78.5 Nicotine dependence, cigarettes, with unspecified nicotine-induced disorders F17.219
[2019-11-13 17:16] LABS: Glucose Point of Care 525 mg/dL (70-110)
[2019-11-13 17:16] LABS: Glucose Point of Care 233 mg/dL (70-110)
[2019-11-13] MEDS: trazodone 100 mg Tablet 200 MG PO (20:39)
[2019-11-13] MEDS: enoxaparin 40 mg/0.4 mL Syringe SUBCUT (20:39)
[2019-11-13 20:41] LABS: Glucose Point of Care 271 mg/dL (70-110)
[2019-11-14] VITALS (19 sets, daily range): BP systolic 148–178; BP diastolic 52–96; PULSE 67–93; RESP 17–22; TEMP 36.5–37; O2SAT 91–98
[2019-11-14] MEDS: ipratropium-albuterol 3 mL Neb INHALATION ×6 (00:45→20:18)
[2019-11-14] MEDS: sodium chloride 0.9% 1,000 ML 75 ML IV ×2 (04:21→21:03)
[2019-11-14] MEDS: FUROsemide 20 mg Tablet PO (05:50)
[2019-11-14 06:17] LABS: Magnesium 2.4 mg/dL (1.7-2.3); Phosphorus 3.6 mg/dL (2.5-4.5)
[2019-11-14 06:38] LABS: Glucose Point of Care 227 mg/dL (70-110)
[2019-11-14] MEDS: azithromycin 500 MG in sodium chloride 0.9% 250 ML 250 MG IV (08:13)
[2019-11-14] MEDS: duloxetine 60 mg Capsule PO ×2 (08:22→17:24)
[2019-11-14] MEDS: morphine ER (12 HR) 30 mg tablet 60 MG PO ×2 (08:22→17:25)
[2019-11-14] MEDS: tamsulosin 0.4 mg Capsule PO ×2 (08:22→17:25)
[2019-11-14] MEDS: atorvastatin 40 mg Tablet PO (08:22)
[2019-11-14] MEDS: meloxicam 7.5 mg tablet 15 MG PO (08:24)
[2019-11-14] MEDS: atenolol 50 mg Tablet PO (08:24)
[2019-11-14] MEDS: pregabalin 150 mg Capsule PO ×4 (08:24→22:00)
[2019-11-14] MEDS: ferrous sulfate EC 325 mg Tablet PO (08:24)
[2019-11-14] MEDS: cefTRIAXone 1,000 MG in sodium chloride 0.9% (plus) 50 ML 100 MG IV (09:51)
[2019-11-14] MEDS: verapamil ER 240 mg Tablet PO (09:55)
[2019-11-14] MEDS: cholecalciferol (vitamin D3) 5,000 unit Tablet 5000 UNIT PO (09:55)
[2019-11-14 11:02] LABS: Glucose Point of Care 212 mg/dL (70-110)
--- NOTE | 2019-11-14 13:03 | PC.CHAP ---
Pastoral Care Encounter/Spiritual Assessment Type of Contact [] Declined office system analyst visit [] Patient/Family/Request visit [] Outpatient visit [] Follow-up visit [] Physician referral [] Code/Alert [x] Routine visit [] Staff referral [] Actively dying [] Patient sleeping [] Family support [] [] Out of room [] Palliative care [] [] Receiving care in room [] Pre-surgical visit [] Trauma [] Long length of stay [] ICU visit [] Other: Relational/Emotional Strength [x] Patient feels connected with others/family/visitors/staff [] Distress [] Loneliness/isolation [] Abandonment Spirituality of Patient [x] Person of Maricel [x] Attends Congregational of their Maric[place] [xx] Believes in Prayer [x] Reads Bible or Mandaeism materials [] There are Spiritual issues to be addressed Spanisher Interventions [x] Prayer [x] Active listening [x] Non-anxious presence [x] Spiritual/emotional support [] Crisis/trauma care [x] Spiritual counseling [] Bereavement support [] Provided bereavement packet [] Provided Bible/devotional materials [] Provided toy/stuffed animal, coloring book to patient or family member [] Completed spiritual assessment [] Provided Communion [] Anointing/Jackson [] Salvation [] Other: Impact on Illness or Injury [] Angry [] Fearful [] Anxious [] Often cries [] Exhaustion [] Unable to work [] Unable to attend quaker [] Unable to walk/stand [] Unable to read [] Unable to drive [] Unable to eat/drink [] Unable to sleep [] Unable to be with family [x] Other: Summary Patient is strong in his Orthodox maricel. Time spent with patient 10-Minutes
--- NOTE | 2019-11-14 14:12 | P.PN_ITS ---
Subjective Subjective: Interval history: Patient states that his breathing has improved, still requiring up to 4 L nasal cannula, still having some wheezing, cough Vitals/I&O/Wt Last Vital Signs Temp 97.7 F 11/14/19 11:30 Pulse 93 11/14/19 11:30 Resp 17 11/14/19 11:30 BP 148/78 11/14/19 11:30 Pulse Ox 94 11/14/19 11:30 11/13/19 11/14/19 11/14/19 22:59 06:59 14:59 Intake Total 1240 / 2448.75 1477.5 / 1477.5 Output Total 360 / 1110 Balance 1240 / 1698.75 -360 / 1338.75 1477.5 / 1477.5 Weight last 48 hrs Weight 94.347 kg Physical Exam Const: COMMON NORMALS: no apparent distress and oriented x3 HENMT: COMMON NORMALS: normocephalic HEAD & SCALP: normocephalic Neck/C-Spine: COMMON NORMALS: no JVD Resp: COMMON NORMALS: normal respiratory effort and no retractions AUSCULTATION: wheezes Cardio: COMMON NORMALS: no JVD, regular rate, regular rhythm, S1 normal heart sound and S2 normal heart sound RATE: regular rate RHYTHM: regular rhythm HEART SOUNDS: S1 normal and S2 normal GI: COMMON NORMALS: normal to inspection, nondistended, normoactive bowel sounds, soft to palpation, non-tender, no hepatosplenomegaly, no masses and no bruits PALPATION: Yes soft and Yes no hepatosplenomegaly Extremity: COMMON NORMALS: normal capillary refill, no clubbing, cyanosis or edema, no calf tenderness and no pedal edema Neuro: COMMON NORMALS: oriented x3 Psych: COMMON NORMALS: mental status grossly normal Data : 11/13/19 05:25 11/13/19 05:25 Micro: Microbiology 11/12/19 23:00 MRSA Culture - Final Nose A&P Assessment and plan (1) Acute respiratory failure: -Acute respiratory failure secondary to COPD exacerbation and bilateral lower lobe pneumonia Plan: -Admit to general medical floors -BiPAP PRN -Telemetry monitoring -Solu-Medrol -Nebulizer treatments -Azithromycin and Rocephin -Monitor respiratory status closely Status: Acute Code(s): J96.00 - Acute respiratory failure, unspecified whether with hypoxia or hypercapnia (2) COPD, moderate: Status: Chronic Code(s): J44.9 - Chronic obstructive pulmonary disease, unspecified (3) Controlled type 2 diabetes mellitus, without long-term current use of insulin: -Low-dose sliding scale Status: Chronic Code(s): E11.9 - Type 2 diabetes mellitus without complications (4) Essential (primary) hypertension: Status: Chronic Code(s): I10 - Essential (primary) hypertension (5) Chronic back pain: -Patient is on morphine 60 mg extended release twice daily, immediate release 15 mg 4 times daily, Lyrica 150 mg 4 times daily, meloxicam, baclofen -Which carries a high risk of respiratory depression given his acute respiratory failure as above -But has has been on this medication for some time, he has a high risk of withdrawal -Will monitor respiratory status very closely, and hold medications if required, but only for short time Status: Acute Code(s): M54.9 - Dorsalgia, unspecified; G89.29 - Other chronic pain (6) Dyslipidemia: Status: Chronic Code(s): E78.5 - Hyperlipidemia, unspecified (7) Nicotine dependence, cigarettes, with unspecified nicotine-induced disorders: Status: Chronic Code(s): F17.219 - Nicotine dependence, cigarettes, with unspecified nicotine-induced disorders Attestations Medical Necessity Statement*: Patient requires continued hospitalization for acute respiratory failure secondary to pneumonia and COPD Coding Level of Care Code Acute Rope Machine Setter for [facility] Diagnoses Acute respiratory failure J96.00 COPD, moderate J44.9 Controlled type 2 diabetes mellitus, without long-term current use of insulin E11.9 Essential (primary) hypertension I10 Chronic back pain M54.9; G89.29 Dyslipidemia E78.5 Nicotine dependence, cigarettes, with unspecified nicotine-induced disorders F17.219
[2019-11-14] MEDS: guaiFENesin 600 mg Tablet PO (17:24)
--- NOTE | 2019-11-14 17:29 | PC.RESP ---
Patient given information on Smoking Cessation and Pulmonary Rehab
[2019-11-14 17:30] LABS: Glucose Point of Care 184 mg/dL (70-110)
[2019-11-14] MEDS: enoxaparin 40 mg/0.4 mL Syringe SUBCUT (19:44)
[2019-11-14 21:40] LABS: Glucose Point of Care 170 mg/dL (70-110)
[2019-11-14] MEDS: trazodone 100 mg Tablet 200 MG PO (22:00)
[2019-11-14] MEDS: morphine IR 15 mg Tablet PO (22:01)
[2019-11-14] MEDS: baclofen 10 mg Tablet 20 MG PO (22:01)
[2019-11-15] VITALS (26 sets, daily range): BP systolic 122–197; BP diastolic 68–97; PULSE 62–90; RESP 16–22; TEMP 36.1–36.8; O2SAT 91–97
[2019-11-15] MEDS: ipratropium-albuterol 3 mL Neb INHALATION ×7 (00:20→23:20)
[2019-11-15] MEDS: FUROsemide 20 mg Tablet PO (06:22)
[2019-11-15 06:39] LABS: Magnesium 2.5 mg/dL (1.7-2.3)
[2019-11-15 06:46] LABS: Glucose Point of Care 260 mg/dL (70-110)
[2019-11-15] MEDS: azithromycin 500 MG in sodium chloride 0.9% 250 ML 250 MG IV (08:54)
[2019-11-15] MEDS: morphine ER (12 HR) 30 mg tablet 60 MG PO ×2 (09:04→17:53)
[2019-11-15] MEDS: ferrous sulfate EC 325 mg Tablet PO (09:04)
[2019-11-15] MEDS: cholecalciferol (vitamin D3) 5,000 unit Tablet 5000 UNIT PO (09:04)
[2019-11-15] MEDS: duloxetine 60 mg Capsule PO ×2 (09:04→17:54)
[2019-11-15] MEDS: guaiFENesin 600 mg Tablet PO ×2 (09:04→17:53)
[2019-11-15] MEDS: verapamil ER 240 mg Tablet PO (09:04)
[2019-11-15] MEDS: meloxicam 7.5 mg tablet 15 MG PO (09:04)
[2019-11-15] MEDS: atorvastatin 40 mg Tablet PO (09:05)
[2019-11-15] MEDS: atenolol 50 mg Tablet PO (09:05)
[2019-11-15] MEDS: tamsulosin 0.4 mg Capsule PO ×2 (09:05→17:54)
[2019-11-15] MEDS: pregabalin 150 mg Capsule PO ×4 (09:05→20:10)
[2019-11-15] MEDS: lisinopril 20 mg Tablet PO (09:05)
[2019-11-15] MEDS: cefTRIAXone 1,000 MG in sodium chloride 0.9% (plus) 50 ML 100 MG IV (10:03)
[2019-11-15] MEDS: sodium chloride 0.9% 1,000 ML 75 ML IV ×2 (10:08→23:04)
[2019-11-15 11:15] LABS: Glucose Point of Care 235 mg/dL (70-110)
[2019-11-15] MEDS: morphine IR 15 mg Tablet PO ×3 (12:00→22:58)
--- NOTE | 2019-11-15 12:31 | PC.SOCIAL ---
IMM Update PG 2 of IMM given and explained to patient who voiced understanding. Signed, dated, and timed and placed in chart. Copy provided to patient.
--- NOTE | 2019-11-15 14:07 | XRR_ITS ---
PROCEDURE INFORMATION: Exam: XR Chest, 1 View Exam date and time: 11/15/2019 2:35 PM Age: 59 years old Clinical indication: Cough and shortness of breath; Patient HX: Cough with SOB. TECHNIQUE: Imaging protocol: XR of the chest Views: 1 view. COMPARISON: CR XR chest 1V portable [id number] 11/12/2019 3:51 PM FINDINGS: Lungs: The lungs are symmetrically expanded. There are again diffusely increased interstitial markings although this appears improved in the follow-up interval. No focal consolidation. Pleural space: Unremarkable. No evidence of pleural effusion or pneumothorax. Heart/Mediastinum: Cardiac silhouette remains mildly enlarged. Bones/joints: Unremarkable. XR/XR chest 1V portable [id number] IMPRESSION: 1. Improved interstitial opacities. No new abnormality.
--- NOTE | 2019-11-15 14:08 | PM.PN ---
Subjective Subjective: Interval history: Patient states that he is overall doing better, his nasal cannula has been titrated down to 2 L, he is ambulating but still short of breath but improved compared to yesterday, still has coarse expiratory wheezing, no fevers, no chills, no nausea, no vomiting, Vitals/I&O/Wt Last Vital Signs Temp 97.4 F L 11/15/19 11:03 Pulse 79 11/15/19 11:08 Resp 20 H 11/15/19 12:00 BP 164/70 11/15/19 11:03 Pulse Ox 97 11/15/19 11:03 11/14/19 11/15/19 11/15/19 22:59 06:59 14:59 Intake Total 902.5 / 2380.0 90 / 2470.0 1882.50 / 1882.50 Output Total 300 / 300 900 / 1200 625 / 625 Balance 602.5 / 2080.0 -810 / 1270.0 1257.50 / 1257.50 Physical Exam Const: COMMON NORMALS: no apparent distress and oriented x3 HENMT: COMMON NORMALS: normocephalic HEAD & SCALP: normocephalic Eye: COMMON NORMALS: PERRL and EOMs intact bilaterally PUPIL: Yes PERRL Neck/C-Spine: COMMON NORMALS: full ROM, no lymphadenopathy and no JVD Lymph: LYMPHATIC: no lymphadenopathy noted Chest: COMMONS NORMALS: inspection of chest normal Resp: COMMON NORMALS: normal respiratory effort, no retractions and no use of accessory muscles AUSCULTATION: wheezes expiratory wheezes Cardio: COMMON NORMALS: no JVD, regular rate, regular rhythm, S1 normal heart sound, S2 normal heart sound and no gallops RATE: regular rate RHYTHM: regular rhythm HEART SOUNDS: S1 normal and S2 normal GI: COMMON NORMALS: normal to inspection, nondistended, normoactive bowel sounds, soft to palpation, non-tender, no hepatosplenomegaly, no masses and no bruits PALPATION: Yes soft and Yes no hepatosplenomegaly : COMMON NORMALS: Yes no CVA tenderness BLADDER/KIDNEY EXAM: Yes no CVA tenderness Back/Pelvis: COMMON NORMALS: no CVA tenderness Extremity: COMMON NORMALS: normal capillary refill, no clubbing, cyanosis or edema, no calf tenderness and no pedal edema Neuro: COMMON NORMALS: oriented x3, CN's II-XII intact bilaterally and moves all extremities Psych: COMMON NORMALS: mental status grossly normal Skin: COMMON NORMALS: no rashes or lesions noted GENERAL SKIN EXAM: no rashes or lesions noted Data : 11/13/19 05:25 11/13/19 05:25 Micro: Microbiology 11/14/19 19:50 Gram Stain - Final Sputum - Expectorated Sputum A&P Assessment and plan (1) Acute respiratory failure: -Acute respiratory failure secondary to COPD exacerbation and bilateral lower lobe pneumonia Plan: -Admit to general medical floors -BiPAP PRN -Telemetry monitoring -Solu-Medrol -Nebulizer treatments -Azithromycin and Rocephin -Monitor respiratory status closely -Add Mucinex and Tessalon Perles, flutter valve, incentive spirometer Status: Acute Code(s): J96.00 - Acute respiratory failure, unspecified whether with hypoxia or hypercapnia (2) COPD, moderate: Status: Chronic Code(s): J44.9 - Chronic obstructive pulmonary disease, unspecified (3) Controlled type 2 diabetes mellitus, without long-term current use of insulin: -Low-dose sliding scale Status: Chronic Code(s): E11.9 - Type 2 diabetes mellitus without complications (4) Essential (primary) hypertension: Status: Chronic Code(s): I10 - Essential (primary) hypertension (5) Chronic back pain: -Patient is on morphine 60 mg extended release twice daily, immediate release 15 mg 4 times daily, Lyrica 150 mg 4 times daily, meloxicam, baclofen -Which carries a high risk of respiratory depression given his acute respiratory failure as above -But has has been on this medication for some time, he has a high risk of withdrawal -Will monitor respiratory status very closely, and hold medications if required, but only for short time Status: Acute Code(s): M54.9 - Dorsalgia, unspecified; G89.29 - Other chronic pain (6) Dyslipidemia: Status: Chronic Code(s): E78.5 - Hyperlipidemia, unspecified (7) Nicotine dependence, cigarettes, with unspecified nicotine-induced disorders: Status: Chronic Code(s): F17.219 - Nicotine dependence, cigarettes, with unspecified nicotine-induced disorders Attestations Medical Necessity Statement*: She requires continued hospitalization due to acute respiratory failure secondary COPD and bilateral lower lobe pneumonia Coding Level of Care Code Acute Social Service Assistant for [facility] F[facility] Diagnoses Acute respiratory failure J96.00 COPD, moderate J44.9 Controlled type 2 diabetes mellitus, without long-term current use of insulin E11.9 Essential (primary) hypertension I10 Chronic back pain M54.9; G89.29 Dyslipidemia E78.5 Nicotine dependence, cigarettes, with unspecified nicotine-induced disorders F17.219
[2019-11-15 16:21] LABS: Glucose Point of Care 152 mg/dL (70-110)
[2019-11-15] MEDS: acetaminophen 325 mg Tablet 650 MG PO (18:44)
[2019-11-15] MEDS: enoxaparin 40 mg/0.4 mL Syringe SUBCUT (20:09)
[2019-11-15] MEDS: trazodone 100 mg Tablet 200 MG PO (20:10)
[2019-11-15 20:51] LABS: Glucose Point of Care 328 mg/dL (70-110)
[2019-11-15] MEDS: baclofen 10 mg Tablet 20 MG PO (23:03)
[2019-11-15] MEDS: labetalol 5 mg/mL SDV 20mL 20 MG IVP (23:46)
[2019-11-16] VITALS (18 sets, daily range): BP systolic 115–183; BP diastolic 72–97; PULSE 64–81; RESP 16–24; TEMP 36.7–37.1; O2SAT 92–95
[2019-11-16] MEDS: ipratropium-albuterol 3 mL Neb INHALATION ×6 (03:04→23:17)
[2019-11-16] MEDS: baclofen 10 mg Tablet 20 MG PO ×3 (04:23→21:29)
[2019-11-16] MEDS: morphine IR 15 mg Tablet PO ×2 (04:24→14:23)
[2019-11-16] MEDS: FUROsemide 20 mg Tablet PO (06:07)
[2019-11-16 06:29] LABS: Glucose Point of Care 240 mg/dL (70-110)
[2019-11-16 08:28] LABS: Basophils % 0.1 %; Hematocrit 41.8 % (42.0-52.0); Hemoglobin 13.7 g/dL (11.7-16.6); Lymphocytes # 3.2 10^3/uL (0.8-4.8); Lymphocytes % 34.4 %; Mean Corpuscular HGB Conc 32.8 g/dL (30.0-36.0); Mean Corpuscular Hemoglobin 29.7 pg (28.0-34.0); Mean Corpuscular Volume 90.7 fL (80-94); Mean Platelet Volume 9.8 fL (7.4-10.4); Monocytes # 0.5 10^3/uL (0.2-0.9); Monocytes % 5.1 %; Neutrophils # 5.4 10^3/uL (1.8-7.7); Neutrophils % 58.5 %; Nucleated Red Blood Cells % 0 %; Platelet Count 235 10^3/cmm (130-400); Red Blood Count 4.61 10^6/uL (4.1-5.3); Red Cell Distribution Width 13.2 % (12.1-15.1); White Blood Count 9.3 10^3/uL (4.0-10.0)
[2019-11-16 08:42] LABS: Alanine Aminotransferase 25 U/L (0-41); Albumin Level 3.8 g/dL (3.5-5.2); Alkaline Phosphatase 128 IU/L (40-130); Anion Gap 16.2 (5-19); Aspartate Amino Transferase 20 U/L (0-40); Blood Urea Nitrogen 16 mg/dL (6-20); Calcium 9.8 mg/dL (8.5-10.5); Carbon Dioxide 35 mmol/L (22-29); Chloride 97 mmol/L (98-107); Creatinine Clr Calc Pharmacy 81.1124; Globulin 2.7 g/dL (1.3-4.6); Glucose 247 mg/dL (74-109); Potassium 4.2 mmol/L (3.5-5.1); Sodium 144 mmol/L (136-145); Total Bilirubin 0.5 mg/dL (0.15-1.2); Total Protein 6.5 g/dL (6.6-8.7)
[2019-11-16] MEDS: ferrous sulfate EC 325 mg Tablet PO (08:45)
[2019-11-16] MEDS: tamsulosin 0.4 mg Capsule PO ×2 (08:45→17:34)
[2019-11-16] MEDS: morphine ER (12 HR) 30 mg tablet 60 MG PO ×2 (08:45→17:34)
[2019-11-16] MEDS: verapamil ER 240 mg Tablet PO (08:45)
[2019-11-16] MEDS: meloxicam 7.5 mg tablet 15 MG PO (08:46)
[2019-11-16] MEDS: atenolol 50 mg Tablet PO (08:46)
[2019-11-16] MEDS: atorvastatin 40 mg Tablet PO (08:46)
[2019-11-16] MEDS: guaiFENesin 600 mg Tablet PO ×2 (08:46→17:32)
[2019-11-16] MEDS: lisinopril 20 mg Tablet PO (08:46)
[2019-11-16] MEDS: pregabalin 150 mg Capsule PO ×3 (08:46→17:34)
[2019-11-16] MEDS: cholecalciferol (vitamin D3) 5,000 unit Tablet 5000 UNIT PO (08:46)
[2019-11-16] MEDS: duloxetine 60 mg Capsule PO ×2 (08:46→17:34)
[2019-11-16] MEDS: cefTRIAXone 1,000 MG in sodium chloride 0.9% (plus) 50 ML 50 MG IV (08:47)
[2019-11-16] MEDS: azithromycin 500 MG in sodium chloride 0.9% 250 ML 250 MG IV (08:48)
[2019-11-16 10:54] LABS: Glucose Point of Care 232 mg/dL (70-110)
--- NOTE | 2019-11-16 11:02 | P.PN_ITS ---
Subjective Subjective: Interval history: This morning patient states his breathing has improved, still having some cough, no shortness of breath, no fevers, no chills, no nausea, no vomiting Vitals/I&O/Wt Last Vital Signs Temp 98.3 F 11/16/19 08:00 Pulse 72 11/16/19 08:00 Resp 18 11/16/19 08:00 BP 171/97 11/16/19 08:00 Pulse Ox 93 11/16/19 08:00 11/15/19 11/16/19 11/16/19 22:59 06:59 14:59 Intake Total 200 / 2082.50 938.75 / 3021.25 200 / 200 Output Total 400 / 1025 2725 / 3750 600 / 600 Balance -200 / 1057.50 -1786.25 / -728.75 -400 / -400 Physical Exam Const: COMMON NORMALS: no apparent distress and oriented x3 HENMT: COMMON NORMALS: normocephalic HEAD & SCALP: normocephalic Eye: COMMON NORMALS: PERRL and EOMs intact bilaterally PUPIL: Yes PERRL Neck/C-Spine: COMMON NORMALS: full ROM, no lymphadenopathy and no JVD Lymph: LYMPHATIC: no lymphadenopathy noted Chest: COMMONS NORMALS: inspection of chest normal Resp: COMMON NORMALS: normal respiratory effort, no retractions, no use of accessory muscles and clear to auscultation bilaterally AUSCULTATION: clear to auscultation bilaterally and wheezes expiratory wheezes Cardio: COMMON NORMALS: no JVD, regular rate, regular rhythm, S1 normal heart sound, S2 normal heart sound and no gallops RATE: regular rate RHYTHM: regular rhythm HEART SOUNDS: S1 normal and S2 normal GI: COMMON NORMALS: normal to inspection, nondistended, normoactive bowel sounds, soft to palpation, non-tender, no hepatosplenomegaly, no masses and no bruits PALPATION: Yes soft and Yes no hepatosplenomegaly Neuro: COMMON NORMALS: oriented x3, CN's II-XII intact bilaterally and moves all extremities Psych: COMMON NORMALS: mental status grossly normal Skin: COMMON NORMALS: no rashes or lesions noted GENERAL SKIN EXAM: no r ashes or lesions noted Data : 11/16/19 08:01 11/16/19 08:01 Micro: Microbiology 11/14/19 19:50 Gram Stain - Final Sputum - Expectorated Sputum Sputum Culture - Preliminary Yeast species A&P Assessment and plan (1) Acute respiratory failure: -Acute respiratory failure secondary to COPD exacerbation and bilateral lower lobe pneumonia Plan: -Admit to general medical floors -BiPAP PRN -Telemetry monitoring -Solu-Medrol -Nebulizer treatments -Azithromycin and Rocephin -Monitor respiratory status closely -Add Mucinex and Tessalon Perles, flutter valve, incentive spirometer Status: Acute Code(s): J96.00 - Acute respiratory failure, unspecified whether with hypoxia or hypercapnia (2) COPD, moderate: Status: Chronic Code(s): J44.9 - Chronic obstructive pulmonary disease, unspecified (3) Controlled type 2 diabetes mellitus, without long-term current use of insulin: -Low-dose sliding scale Status: Chronic Code(s): E11.9 - Type 2 diabetes mellitus without complications (4) Essential (primary) hypertension: Status: Chronic Code(s): I10 - Essential (primary) hypertension (5) Chronic back pain: -Patient is on morphine 60 mg extended release twice daily, immediate release 15 mg 4 times daily, Lyrica 150 mg 4 times daily, meloxicam, baclofen -Which carries a high risk of respiratory depression given his acute respiratory failure as above -But has has been on this medication for some time, he has a high risk of withdrawal -Will monitor respiratory status very closely, and hold medications if required, but only for short time Status: Acute Code(s): M54.9 - Dorsalgia, unspecified; G89.29 - Other chronic pain (6) Dyslipidemia: Status: Chronic Code(s): E78.5 - Hyperlipidemia, unspecified (7) Nicotine dependence, cigarettes, with unspecified nicotine-induced disorders: Status: Chronic Code(s): F17.219 - Nicotine dependence, cigarettes, with unspecified nicotine-induced disorders Attestations Medical Necessity Statement*: Requires continued hospitalization due to acute respiratory failure secondary to pneumonia Coding Level of Care Code Acute Sba Underwriter for [facility] Diagnoses Acute respiratory failure J96.00 COPD, moderate J44.9 Controlled type 2 diabetes mellitus, without long-term current use of insulin E11.9 Essential (primary) hypertension I10 Chronic back pain M54.9; G89.29 Dyslipidemia E78.5 Nicotine dependence, cigarettes, with unspecified nicotine-induced disorders F17.219
--- NOTE | 2019-11-16 16:51 | PC.NURSE ---
This Teaching Pastor went to get patients vital signs and the patient was asleep. The patients requested that we let him rest.
[2019-11-16 17:02] LABS: Glucose Point of Care 279 mg/dL (70-110)
[2019-11-16] MEDS: enoxaparin 40 mg/0.4 mL Syringe SUBCUT (17:35)
[2019-11-16] MEDS: trazodone 100 mg Tablet 200 MG PO (21:03)
[2019-11-16 21:18] LABS: Glucose Point of Care 227 mg/dL (70-110)
[2019-11-17] VITALS (22 sets, daily range): BP systolic 150–196; BP diastolic 86–111; PULSE 10–83; RESP 16–24; TEMP 36.7–37; O2SAT 90–97
[2019-11-17] MEDS: acetaminophen 325 mg Tablet 650 MG PO (00:50)
[2019-11-17] MEDS: ipratropium-albuterol 3 mL Neb INHALATION ×6 (03:02→23:09)
[2019-11-17] MEDS: FUROsemide 20 mg Tablet PO (05:41)
[2019-11-17 06:51] LABS: Glucose Point of Care 268 mg/dL (70-110)
[2019-11-17] MEDS: azithromycin 500 MG in sodium chloride 0.9% 250 ML 250 MG IV (08:18)
[2019-11-17] MEDS: atorvastatin 40 mg Tablet PO (08:19)
[2019-11-17] MEDS: guaiFENesin 600 mg Tablet PO ×2 (08:19→18:20)
[2019-11-17] MEDS: atenolol 50 mg Tablet PO (08:19)
[2019-11-17] MEDS: tamsulosin 0.4 mg Capsule PO ×2 (08:19→18:27)
[2019-11-17] MEDS: lisinopril 20 mg Tablet PO ×2 (08:19→18:21)
[2019-11-17] MEDS: meloxicam 7.5 mg tablet 15 MG PO (08:19)
[2019-11-17] MEDS: verapamil ER 240 mg Tablet PO (08:20)
[2019-11-17] MEDS: morphine ER (12 HR) 30 mg tablet 60 MG PO ×2 (08:20→18:20)
[2019-11-17] MEDS: cholecalciferol (vitamin D3) 5,000 unit Tablet 5000 UNIT PO (08:20)
[2019-11-17] MEDS: duloxetine 60 mg Capsule PO ×2 (08:20→18:20)
[2019-11-17] MEDS: ferrous sulfate EC 325 mg Tablet PO (08:21)
[2019-11-17] MEDS: cefTRIAXone 1,000 MG in sodium chloride 0.9% (plus) 50 ML 50 MG IV (09:57)
[2019-11-17] MEDS: morphine IR 15 mg Tablet PO ×2 (10:07→20:51)
[2019-11-17] MEDS: baclofen 10 mg Tablet 20 MG PO ×2 (10:07→18:21)
[2019-11-17] MEDS: chlorthalidone 25 mg Tablet PO (10:08)
[2019-11-17 10:54] LABS: Basophils % 0.1 %; Hematocrit 40.7 % (42.0-52.0); Hemoglobin 13.5 g/dL (11.7-16.6); Lymphocytes # 2.8 10^3/uL (0.8-4.8); Lymphocytes % 21.1 %; Mean Corpuscular HGB Conc 33.2 g/dL (30.0-36.0); Mean Corpuscular Hemoglobin 29.8 pg (28.0-34.0); Mean Corpuscular Volume 89.8 fL (80-94); Mean Platelet Volume 10.1 fL (7.4-10.4); Monocytes # 0.8 10^3/uL (0.2-0.9); Monocytes % 6.3 %; Neutrophils # 9.3 10^3/uL (1.8-7.7); Neutrophils % 71.1 %; Nucleated Red Blood Cells % 0 %; Platelet Count 233 10^3/cmm (130-400); Red Blood Count 4.53 10^6/uL (4.1-5.3); Red Cell Distribution Width 12.9 % (12.1-15.1); White Blood Count 13.1 10^3/uL (4.0-10.0)
--- NOTE | 2019-11-17 11:07 | PC.SOCIAL ---
Updated Pg 2 of IMM with patient and provided him with a copy. He verbalized understanding and had no questions. Initialed, dated, and timed copy in chart.
[2019-11-17 11:09] LABS: Alanine Aminotransferase 27 U/L (0-41); Albumin Level 3.8 g/dL (3.5-5.2); Alkaline Phosphatase 124 IU/L (40-130); Anion Gap 13.2 (5-19); Aspartate Amino Transferase 14 U/L (0-40); Blood Urea Nitrogen 22 mg/dL (6-20); Calcium 9.2 mg/dL (8.5-10.5); Carbon Dioxide 34 mmol/L (22-29); Chloride 96 mmol/L (98-107); Globulin 2.3 g/dL (1.3-4.6); Glucose 390 mg/dL (74-109); Potassium 4.2 mmol/L (3.5-5.1); Sodium 139 mmol/L (136-145); Total Bilirubin 0.4 mg/dL (0.15-1.2); Total Protein 6.1 g/dL (6.6-8.7)
[2019-11-17 12:06] LABS: Glucose Point of Care 211 mg/dL (70-110)
[2019-11-17 17:10] LABS: Glucose Point of Care 142 mg/dL (70-110)
[2019-11-17] MEDS: enoxaparin 40 mg/0.4 mL Syringe SUBCUT (18:20)
--- NOTE | 2019-11-17 19:23 | PM.PN ---
Subjective Subjective: Interval history: Patient states that he is doing overall better today, still having expiratory wheezing, states that he still short of breath with exertion, not ready to go home today, no fevers, no chills, no nausea, vomiting Vitals/I&O/Wt Last Vital Signs Temp 98.4 F 11/17/19 16:00 Pulse 73 11/17/19 16:13 Resp 18 11/17/19 18:20 BP 162/88 11/17/19 16:00 Pulse Ox 97 11/17/19 16:10 11/17/19 11/17/19 11/17/19 06:59 14:59 22:59 Intake Total 480 / 480 Balance 480 / 480 Physical Exam Const: COMMON NORMALS: no apparent distress and oriented x3 HENMT: COMMON NORMALS: normocephalic HEAD & SCALP: normocephalic Eye: COMMON NORMALS: PERRL and EOMs intact bilaterally PUPIL: Yes PERRL Neck/C-Spine: COMMON NORMALS: full ROM, no lymphadenopathy and no JVD Lymph: LYMPHATIC: no lymphadenopathy noted Chest: COMMONS NORMALS: inspection of chest normal Resp: COMMON NORMALS: normal respiratory effort, no retractions, no use of accessory muscles and clear to auscultation bilaterally AUSCULTATION: clear to auscultation bilaterally and wheezes expiratory wheezes Cardio: COMMON NORMALS: no JVD, regular rate, regular rhythm, S1 normal heart sound, S2 normal heart sound and no gallops RATE: regular rate RHYTHM: regular rhythm HEART SOUNDS: S1 normal and S2 normal GI: COMMON NORMALS: normal to inspection, nondistended, normoactive bowel sounds, soft to palpation, non-tender, no hepatosplenomegaly, no masses and no bruits PALPATION: Yes soft and Yes no hepatosplenomegaly : COMMON NORMALS: Yes no CVA tenderness BLADDER/KIDNEY EXAM: Yes no CVA tenderness Back/Pelvis: COMMON NORMALS: no CVA tenderness Extremity: COMMON NORMALS: normal capillary refill, no clubbing, cyanosis or edema, no calf tenderness and no pedal edema Neuro: COMMON NORMALS: oriented x3, CN's II-XII intact bilaterally and moves all extremities Psych: COMMON NORMALS: mental status grossly normal Skin: COMMON NORMALS: no rashes or lesions noted GENERAL SKIN EXAM: no rashes or lesions noted Data : 11/17/19 10:15 11/17/19 10:15 Micro: Microbiology 11/14/19 19:50 Gram Stain - Final Sputum - Expectorated Sputum Sputum Culture - Final Lisa albicans A&P Assessment and plan (1) Acute respiratory failure: -Acute respiratory failure secondary to COPD exacerbation and bilateral lower lobe pneumonia Plan: -Admit to general medical floors -BiPAP PRN -Telemetry monitoring -Solu-Medrol -Nebulizer treatments -Azithromycin and Rocephin -Monitor respiratory status closely -Add Mucinex and Tessalon Perles, flutter valve, incentive spirometer -Add Pulmicort -I went over CT with Dr. Robledo, who believes that likely patient has some component of viral etiology Status: Acute Code(s): J96.00 - Acute respiratory failure, unspecified whether with hypoxia or hypercapnia (2) COPD, moderate: Status: Chronic Code(s): J44.9 - Chronic obstructive pulmonary disease, unspecified (3) Controlled type 2 diabetes mellitus, without long-term current use of insulin: -Low-dose sliding scale Status: Chronic Code(s): E11.9 - Type 2 diabetes mellitus without complications (4) Essential (primary) hypertension: Status: Chronic Code(s): I10 - Essential (primary) hypertension (5) Chronic back pain: -Patient is on morphine 60 mg extended release twice daily, immediate release 15 mg 4 times daily, Lyrica 150 mg 4 times daily, meloxicam, baclofen -Which carries a high risk of respiratory depression given his acute respiratory failure as above -But has has been on this medication for some time, he has a high risk of withdrawal -Will monitor respiratory status very closely, and hold medications if required, but only for short time Status: Acute Code(s): M54.9 - Dorsalgia, unspecified; G89.29 - Other chronic pain (6) Dyslipidemia: Status: Chronic Code(s): E78.5 - Hyperlipidemia, unspecified (7) Nicotine dependence, cigarettes, with unspecified nicotine-induced disorders: Status: Chronic Code(s): F17.219 - Nicotine dependence, cigarettes, with unspecified nicotine-induced disorders Attestations Medical Necessity Statement*: Patient requires continued hospitalization for acute respiratory failure Coding Level of Care Code Acute Financial Reporting Specialist for Jens Boone Diagnoses Acute respiratory failure J96.00 COPD, moderate J44.9 Controlled type 2 diabetes mellitus, without long-term current use of insulin E11.9 Essential (primary) hypertension I10 Chronic back pain M54.9; G89.29 Dyslipidemia E78.5 Nicotine dependence, cigarettes, with unspecified nicotine-induced disorders F17.219
[2019-11-17] MEDS: budesonide 0.5 mg/2 mL Neb INHALATION (19:27)
[2019-11-17] MEDS: trazodone 100 mg Tablet 200 MG PO (20:51)
[2019-11-17 22:23] LABS: Glucose Point of Care 231 mg/dL (70-110)
[2019-11-18] VITALS (14 sets, daily range): BP systolic 123–146; BP diastolic 66–83; PULSE 68–88; RESP 16–20; TEMP 36.4–36.8; O2SAT 85–96
[2019-11-18] MEDS: baclofen 10 mg Tablet 20 MG PO (00:31)
[2019-11-18] MEDS: ipratropium-albuterol 3 mL Neb INHALATION ×4 (03:31→15:10)
[2019-11-18] MEDS: FUROsemide 20 mg Tablet PO (06:24)
[2019-11-18 06:39] LABS: Glucose Point of Care 258 mg/dL (70-110)
[2019-11-18] MEDS: budesonide 0.5 mg/2 mL Neb INHALATION (07:14)
[2019-11-18] MEDS: duloxetine 60 mg Capsule PO (08:10)
[2019-11-18] MEDS: azithromycin 250 mg Tablet 500 MG PO (08:10)
[2019-11-18] MEDS: verapamil ER 240 mg Tablet PO (08:10)
[2019-11-18] MEDS: guaiFENesin 600 mg Tablet PO (08:10)
[2019-11-18] MEDS: ferrous sulfate EC 325 mg Tablet PO (08:10)
[2019-11-18] MEDS: atorvastatin 40 mg Tablet PO (08:10)
[2019-11-18] MEDS: meloxicam 7.5 mg tablet 15 MG PO (08:10)
[2019-11-18] MEDS: tamsulosin 0.4 mg Capsule PO (08:10)
[2019-11-18] MEDS: atenolol 50 mg Tablet PO (08:11)
[2019-11-18] MEDS: lisinopril 20 mg Tablet PO (08:11)
[2019-11-18] MEDS: cholecalciferol (vitamin D3) 5,000 unit Tablet 5000 UNIT PO (08:11)
[2019-11-18] MEDS: cefTRIAXone 1,000 MG in sodium chloride 0.9% (plus) 50 ML 50 MG IV (08:11)
[2019-11-18] MEDS: chlorthalidone 25 mg Tablet PO (08:11)
[2019-11-18] MEDS: morphine ER (12 HR) 30 mg tablet 60 MG PO (08:11)
[2019-11-18 11:14] LABS: Basophils % 0.1 %; Eosinophils % 0.1 %; Hematocrit 45.7 % (42.0-52.0); Hemoglobin 15.6 g/dL (11.7-16.6); Lymphocytes % 21.3 %; Mean Corpuscular HGB Conc 34.1 g/dL (30.0-36.0); Mean Corpuscular Hemoglobin 29.9 pg (28.0-34.0); Mean Corpuscular Volume 87.5 fL (80-94); Mean Platelet Volume 10.2 fL (7.4-10.4); Monocytes # 0.8 10^3/uL (0.2-0.9); Monocytes % 5.4 %; Neutrophils # 10.1 10^3/uL (1.8-7.7); Neutrophils % 71.9 %; Nucleated Red Blood Cells % 0 %; Platelet Count 245 10^3/cmm (130-400); Red Blood Count 5.22 10^6/uL (4.1-5.3); Red Cell Distribution Width 12.7 % (12.1-15.1)
[2019-11-18 11:15] LABS: Glucose Point of Care 214 mg/dL (70-110)
[2019-11-18 11:30] LABS: Alanine Aminotransferase 36 U/L (0-41); Albumin Level 3.7 g/dL (3.5-5.2); Alkaline Phosphatase 117 IU/L (40-130); Anion Gap 13.5 (5-19); Aspartate Amino Transferase 20 U/L (0-40); Blood Urea Nitrogen 22 mg/dL (6-20); Calcium 10.1 mg/dL (8.5-10.5); Carbon Dioxide 37 mmol/L (22-29); Chloride 88 mmol/L (98-107); Globulin 3.2 g/dL (1.3-4.6); Glucose 254 mg/dL (74-109); Potassium 4.5 mmol/L (3.5-5.1); Sodium 134 mmol/L (136-145); Total Bilirubin 0.5 mg/dL (0.15-1.2); Total Protein 6.9 g/dL (6.6-8.7)
--- NOTE | 2019-11-18 14:02 | PM.DCS ---
Discharge Providers Date of Admission: 11/12/19 16:48 Date of Discharge: 11/18/19 Attending Provider at Admission: Rico Hernandez MD Attending Provider at Discharge: Rico Hernandez MD Primary Care Provider: Madeline Shields DO Diagnoses at Discharge Discharge Diagnosis (1) Acute respiratory failure: Status: Acute (2) COPD, moderate: Status: Chronic (3) Controlled type 2 diabetes mellitus, without long-term current use of insulin: Status: Chronic (4) Essential (primary) hypertension: Status: Chronic (5) Chronic back pain: Status: Acute (6) Dyslipidemia: Status: Chronic (7) Nicotine dependence, cigarettes, with unspecified nicotine-induced disorders: Status: Chronic Reason for Visit Reason for Visit: Reason For Visit: SOB, 85 O2 and COPD Hospital Course Discharge Summary: This is a 59-year-old male with a past medical history of COPD, type 2 diabetes mellitus, chronic back pain on chronic opiates, dyslipidemia, hyperlipidemia, chronic smoker who presents to the emergency room due to complaints of cough and shortness of breath. Patient was admitted for acute respiratory failure secondary to COPD exacerbation and bilateral lower lobe pneumonia, he was admitted to general medical floors, on BiPAP, oxygen therapy, telemetry, Solu-Medrol, nebulizer treatments, azithromycin and Rocephin, his respiratory status was monitored closely. Overall patient had a slow clinical progress, he was transitioned to 3 L nasal cannula, his steroids were de-escalated, antibiotics were de-escalated. The patient continued to have some degree of expiratory wheezing, shortness of breath with exertion, but was overall doing better and ready to go home. Thus likely patient had some component of viral etiology as an exacerbant to his respiratory status. Patient was discharged on oxygen 3L, steroid taper, doxycycline, duo nebs with nebulizer machine, and a close follow-up with her primary care provider 1 week. Patient is to follow-up with pulmonary in 1 month. Patient's blood sugars were also elevated during his admission, likely secondary to steroid therapy, was discharged on Levemir 10 units twice daily, NovoLog sliding scale, instructed to monitor blood sugars 3 times daily. Physical Exam Const: COMMON NORMALS: no apparent distress and oriented x3 HENMT: COMMON NORMALS: normocephalic HEAD & SCALP: normocephalic Eye: COMMON NORMALS: PERRL and EOMs intact bilaterally PUPIL: Yes PERRL Neck/C-Spine: COMMON NORMALS: full ROM, no lymphadenopathy and no JVD Lymph: LYMPHATIC: no lymphadenopathy noted Chest: COMMONS NORMALS: inspection of chest normal Resp: COMMON NORMALS: normal respiratory effort, no retractions, no use of accessory muscles and clear to auscultation bilaterally AUSCULTATION: clear to auscultation bilaterally Cardio: COMMON NORMALS: no JVD, regular rate, regular rhythm, S1 normal heart sound, S2 normal heart sound and no gallops RATE: regular rate RHYTHM: regular rhythm HEART SOUNDS: S1 normal and S2 normal GI: COMMON NORMALS: normal to inspection, nondistended, normoactive bowel sounds, soft to palpation, non-tender, no hepatosplenomegaly, no masses and no bruits PALPATION: Yes soft and Yes no hepatosplenomegaly Extremity: COMMON NORMALS: normal capillary refill, no clubbing, cyanosis or edema, no calf tenderness and no pedal edema Neuro: COMMON NORMALS: oriented x3 Discharge Data Data Completed and Pending: Completed Studies During Hospitalization Category Date Time Status CT angio chest PE protcl [id number] Rout ine Cat Scan 11/13/19 10:36 Completed XR chest 1V samir ble [id number] Stat Exams 11/15/19 14:07 Completed XR chest 1V samir ble [id number] Urgent Exams 11/12/19 15:29 Completed Labs from last 24 hours 11/18/19 11/18/19 11/18/19 11:11 10:52 10:52 WBC 14.0 H RBC 5.22 Hgb 15.6 Hct 45.7 MCV 87.5 MCH 29.9 MCHC 34.1 RDW 12.7 Plt Count 245 MPV 10.2 Neut % (Auto) 71.9 Lymph % (Auto) 21.3 [place] % (Auto) 5.4 Eos % (Auto) 0.1 Baso % (Auto) 0.1 Neut # (Auto) 10.1 H Lymph # (Auto) 3.0 [place] # (Auto) 0.8 Eos # (Auto) 0.0 Baso # (Auto) 0.0 Nucleated RBC % (a uto) 0 Nucleated RBCs # 0.0 Sodium 134 L Potassium 4.5 Chloride 88 L Carbon Dioxide 37 H Anion Gap 13.5 BUN 22 H Creatinine 1.0 GFR Calculation 77.0 L Glucose 254 H POC Glucose 214 Calcium 10.1 Total Bilirubin 0.5 AST 20 ALT 36 Alkaline Phosphata se 117 Total Protein 6.9 Albumin 3.7 Globulin 3.2 11/18/19 11/17/19 11/17/19 06:33 22:03 16:57 WBC RBC Hgb Hct MCV MCH MCHC RDW Plt Count MPV Neut % (Auto) Lymph % (Auto) [place] % (Auto) Eos % (Auto) Baso % (Auto) Neut # (Auto) Lymph # (Auto) [place] # (Auto) Eos # (Auto) Baso # (Auto) Nucleated RBC % (a uto) Nucleated RBCs # Sodium Potassium Chloride Carbon Dioxide Anion Gap BUN Creatinine GFR Calculation Glucose POC Glucose 258 231 142 Calcium Total Bilirubin AST ALT Alkaline Phosphata se Total Protein Albumin Globulin Vitals: Last Vital Signs Temp 97.6 F 11/18/19 11:59 Pulse 88 11/18/19 11:59 Resp 18 11/18/19 11:59 BP 146/83 11/18/19 11:59 Pulse Ox 95 11/18/19 11:59 Discharge Plan Discharge Patient Disposition: Home, Self-Care Condition: Stable Prescriptions: New ipratropium-albuterol 0.5 mg-3 mg(2.5 mg base)/3 mL Solution For Nebulization 3 ml inhalation Q6H PRN (Reason: shortness of breath or wheezing) Qty: 15 RF: 0 lisinopril 20 mg Tablet 20 mg PO BID 30 Days Qty: 60 RF: 0 chlorthalidone 25 mg Tablet 25 mg PO DAILY 30 Days Qty: 30 RF: 0 Mucinex 600 mg Tablet Extended Release 12hr 600 mg PO BID 30 Days Qty: 60 RF: 0 Levemir FlexTouch U-100 Insuln 100 unit/mL (3 mL) insulin pen 10 unit SUBCUT BID 30 Days Qty: 6 RF: 0 Novolog Flexpen U-100 Insulin 100 unit/mL (3 mL) insulin pen See Rx Instructions .ROUTE .COMPLEX 30 Days Qty: 15 RF: 0 doxycycline hyclate 100 mg tablet 100 mg PO BID 7 Days Qty: 14 RF: 0 prednisone 10 mg tablet 10 mg PO DIRECTED 25 Days Qty: 53 RF: 0 Continued albuterol sulfate [ProAir HFA] 90 mcg/actuation HFA aerosol inhaler 2 puff INHALATION Q6H PRN (Reason: Shortness Of Breath) RF: 0 guaifenesin [Mucinex] 600 mg tablet extended release 12hr 600 mg PO Q12H PRN (Reason: Secretions) RF: 0 meloxicam 15 mg tablet 15 mg PO ONCE RF: 0 verapamil 240 mg capsule,ext rel. pellets 24 hr 240 mg PO QAM RF: 0 atenolol 50 mg tablet 50 mg PO ONCE RF: 0 atorvastatin 40 mg tablet 40 mg PO ONCE RF: 0 glipizide 5 mg tablet extended release 24hr 5 mg PO ONCE RF: 0 morphine 15 mg tablet 15 mg PO .FIVES TIMES DAILY PRN (Reason: Pain) RF: 0 baclofen 20 mg tablet 20 mg PO QID RF: 0 morphine 60 mg capsule, ER multiphase 24 hr 60 mg PO BID RF: 0 pregabalin [Lyrica] 150 mg capsule 150 mg PO QID RF: 0 tamsulosin 0.4 mg capsule 0.4 mg PO BID RF: 0 duloxetine 60 mg capsule,delayed release(DR/EC) 60 mg PO BID RF: 0 ondansetron HCl [Zofran] 4 mg tablet 4 mg PO Q6H RF: 0 furosemide [Lasix] 20 mg tablet 20 mg PO QAM RF: 0 ferrous sulfate 324 mg (65 mg iron) tablet,delayed release (DR/EC) 324 mg PO ONCE RF: 0 erythromycin 5 mg/gram (0.5 %) ointment 1 applic ophthalmic (eye) ONCE RF: 0 trazodone 100 mg tablet 200 mg PO ONCE RF: 0 Trulicity 1.5 mg/0.5 mL pen injector 1.5 mg SUBCUT .ONCE WEEKLY RF: 0 Breo Ellipta 100-25 mcg/dose blister with device 1 inh INHALATION Q24H RF: 0 Chantix 0.5 mg tablet 0.5 mg PO ONCE RF: 0 cholecalciferol (vitamin D3) 50,000 unit capsule 5,000 unit PO QDAY RF: 0 Discontinued levofloxacin 750 mg tablet 750 mg PO Q24H Qty: 5 RF: 0 prednisone 20 mg tablet 40 mg PO QDAY Qty: 10 RF: 0 Discharge Orders: Discharge Order (Routine); Ordered 11/18/19 Ordered By: Rico Hernandez Other Ambulatory Orders: DME: Oxygen (Order) Location: None Selected Ordered By: Rico Hernandez Referrals: Madeline Shields DO [Primary Care Provider] - 1 week Rico Hernandez MD [Hospitalist] - Junior Robledo MD [Physician] - 12/18/19 1:00 am Discharge Diet: Diabetic Discharge Activity: Resume usual activity Patient Instructions: Atenolol/Chlorthalidone (By mouth), Lisinopril (By mouth), Decongestant/Expectorant (By mouth), Doxycycline (By mouth), Ipratropium (By breathing), Prednisone (By mouth), Insulin Aspart, Recombinant (Injection), Insulin Human Regular (Injection), Insulin Detemir (Injection), How to Stop Smoking (DC), Diabetic Foot Care (DC), Diabetic Foot Care (GEN), Diabetic Hypoglycemia (DC), Diabetic Hypoglycemia (GEN), What is Insulin (DC), What is Insulin (GEN), Giving an Insulin Injection (DC), Giving an Insulin Injection (GEN), Chronic Obstructive Pulmonary Disease (DC), Pen Devices for Insulin Administration (DC), Pen Devices for Insulin Administration (GEN), COPD Stoplight, Quitting Smoking Activity Restrictions/Additional Instructions: -Please take antibiotics as prescribed for the next 7 days -Please take steroid taper as prescribed -Please follow-up with Dr. Shields in 1 week -Please follow-up with Dr. Robledo in 1 month -He will need pulmonary function testing in 1 month -Given steroid use, you need insulin -Inject Levemir 10 units twice daily -NovoLog 3 times daily with meals, do not inject if you do not eat, check blood sugar before meal, and inject based on sliding scale provided -If blood sugar greater than 500, call primary care -If blood sugar less than 60, drink or juice, call primary care -Your blood pressure medications also have been adjusted -If you have worsening shortness of breath, fevers, come back to the emergency room -I have sent you home with a nebulizer machine, and nebulizer syringes, use sparingly Discharge Attestations Time Spent in Discharge Care*: greater than 30 min Quality Metrics Clinical Quality Measures During this hospital stay, did patient experience: None Coding Level of Care Code Acute Environmental Health Manager for g Fwd Diagnoses Acute respiratory failure J96.00 COPD, moderate J44.9 Controlled type 2 diabetes mellitus, without long-term current use of insulin E11.9 Essential (primary) hypertension I10 Chronic back pain M54.9; G89.29 Dyslipidemia E78.5 Nicotine dependence, cigarettes, with unspecified nicotine-induced disorders F17.219
[2019-11-18] MEDS: morphine IR 15 mg Tablet PO (15:42)
== END 2019-11-18 16:23 | disposition home or self-care (01) | DRG 193 ==
LOC: ER 15:46 → MEDSURG 17:43
PROVIDERS: Admitting Provider Family Medicine; Emergency Provider Family Medicine; Family Provider Family Medicine; PCP Family Medicine; Visit Provider Family Medicine
DX: J18.9 Pneumonia, unspecified organism (principal); J96.00 Acute respiratory failure, unspecified whether with hypoxia or hypercapnia; J44.1 Chronic obstructive pulmonary disease with (acute) exacerbation; J44.0 Chronic obstructive pulmonary disease with (acute) lower respiratory infection; F17.210 Nicotine dependence, cigarettes, uncomplicated; G89.29 Other chronic pain; E11.9 Type 2 diabetes mellitus without complications; E78.5 Hyperlipidemia, unspecified; I10 Essential (primary) hypertension; E03.9 Hypothyroidism, unspecified; E55.9 Vitamin D deficiency, unspecified; Z79.84 Long term (current) use of oral hypoglycemic drugs; Z79.4 Long term (current) use of insulin; T38.0X5A Adverse effect of glucocorticoids and synthetic analogues, initial encounter; B34.9 Viral infection, unspecified
CPT/HCPCS: 12345; 36415; 36416; 36600; 71045; 71275; 80053; 82805; 82962; 83605; 83735; 83880; 84100; 84484; 85025; 87070; 87106; 87205; 87641; 87804; 93005; 94640; 94660; 96372; 96374; 96375; 97110; 97116; 97161; 97165; 97530; 97535; 99283; J0456; J0696; J1650; J1815; J1956; J2405; J2543; J2920; J2930; J3490; J7030; J7050; J7626; Q0144; Q0162; Q9967

== ENCOUNTER → 2019-12-12 12:59 | Outpatient (BNVA) | payer MEDICARE, SELFPAY | PROVIDERS: Family Provider Family Medicine; PCP Family Medicine; Visit Provider Anesthesiology | DX: M54.9 Dorsalgia, unspecified (principal); M54.2 Cervicalgia; F17.210 Nicotine dependence, cigarettes, uncomplicated; Z79.891 Long term (current) use of opiate analgesic; Z71.6 Tobacco abuse counseling | CPT/HCPCS: 99214 ==

== ENCOUNTER → 2019-12-19 09:33 | Outpatient (BNVA) | payer MEDICARE, SELFPAY | PROVIDERS: Family Provider Family Medicine; PCP Family Medicine; Visit Provider Family Medicine | DX: I10 Essential (primary) hypertension (principal); E11.9 Type 2 diabetes mellitus without complications; E78.5 Hyperlipidemia, unspecified; E03.9 Hypothyroidism, unspecified; D50.9 Iron deficiency anemia, unspecified; E55.9 Vitamin D deficiency, unspecified; M25.561 Pain in right knee | CPT/HCPCS: 80053; 80061; 82044; 82306; 82728; 83036; 83540; 83550; 84443; 85025 ==

== ENCOUNTER → 2020-01-14 13:34 | Outpatient (BNVA) | payer MEDICARE, SELFPAY | PROVIDERS: Family Provider Family Medicine; PCP Family Medicine; Visit Provider Family Medicine | DX: E87.1 Hypo-osmolality and hyponatremia (principal) | CPT/HCPCS: 80048 ==

== ENCOUNTER 2020-02-09 08:47 | Outpatient (CLI) | payer MEDICARE, SELFPAY ==
--- NOTE | 2020-02-09 09:00 | CT_ITS ---
WS: [id number] CT CHEST WITHOUT INTRAVENOUS CONTRAST HISTORY: Pneumonia follow-up. Smoking history. TECHNIQUE: Contiguous 5 mm axial imaging performed on the thorax. Coronal and sagittal reformats are submitted. All CT scans at [facility] use at least one of these dose optimization techniq ues: automated exposure control; mA and/or kV adjustment per patient size (includes targeted exams wh ere dose is matched to clinical indication); or iterative reconstruction. CONTRAST: None DLP: 985.0 mGycm COMPARISON: CT 11/13/2019. Chest radiograph 11/15/2019. Lungs and central airway: Significant improvement in aeration bilaterally throughout both lungs. Para septal emphysematous changes in the upper lung mitchell. The groundglass attenuation persists but has i mproved and may be related to patient's chronic emphysema. The tree-in-bud airspace disease noted mickey aterally is nearly completely resolved. There are a few areas of mild peripheral interstitial thicken ing. No mass or pulmonary nodule. Very mild subsegmental atelectasis in the lingula and LEFT lower lo be. Pleura: Normal. No pleural effusion. Heart and pericardium: Normal size heart. No pericardial effusion. Mediastinum and dale: Small mediastinal and hilar lymph nodes. Some of the lymph nodes have decreased slightly in diameter. Vessels: Mild atherosclerosis aorta with no aneurysm. Pulmonary artery size is less than aorta. Chest wall and lower neck: Mild gynecomastia, RIGHT greater than LEFT. Upper abdomen: Granulomatous disease in the spleen. Mild perinephric stranding around the superior po les of each kidney is similar to prior study and may be chronic. Small esophageal hernia. Osseous structures: No osteoblastic or osteolytic bone disease. All spondylitic changes in the thorac ic spine and several Schmorl's nodes defects within the thoracic vertebral bodies. CT/CT chest wo con [id number] IMPRESSION: 1. Significant improvement in aeration since 11/13/2019 with near complete reso lution of pneumonia. 2. Mild persistent subsegmental atelectasis in the lingula and LEFT lower lobe and some very minimal groundglass attenuation in the upper lung mitchell and duane nges of paraseptal emphysema. 3. No adenopathy. 4. Mild atherosclerosis aorta.
== END 2020-02-09 08:48 | disposition home or self-care (01) ==
LOC: RADWPI 08:51
PROVIDERS: Family Provider Family Medicine; PCP Family Medicine; Visit Provider Internal Medicine Critical Care Medicine
DX: J18.9 Pneumonia, unspecified organism (principal); Z87.891 Personal history of nicotine dependence; J98.11 Atelectasis; I70.0 Atherosclerosis of aorta
CPT/HCPCS: 71250

== ENCOUNTER → 2020-02-17 09:01 | Outpatient (BNVA) | payer MEDICARE, SELFPAY | PROVIDERS: Family Provider Family Medicine; PCP Family Medicine; Visit Provider Urology | DX: N31.9 Neuromuscular dysfunction of bladder, unspecified (principal); R33.9 Retention of urine, unspecified | CPT/HCPCS: 81001 ==

== ENCOUNTER → 2020-03-18 13:30 | Outpatient (BNVA) | payer MEDICARE, SELFPAY | PROVIDERS: Family Provider Family Medicine; PCP Family Medicine; Visit Provider Specialist | DX: M25.562 Pain in left knee (principal); M17.12 Unilateral primary osteoarthritis, left knee | CPT/HCPCS: 73560; 73565 ==

== ENCOUNTER → 2020-03-31 10:57 | Outpatient (BNVA) | payer MEDICARE, SELFPAY | PROVIDERS: PCP Family Medicine; Visit Provider Anesthesiology | DX: G89.29 Other chronic pain (principal); M54.41 Lumbago with sciatica, right side; M54.42 Lumbago with sciatica, left side; M54.9 Dorsalgia, unspecified; M17.0 Bilateral primary osteoarthritis of knee; F17.210 Nicotine dependence, cigarettes, uncomplicated; Z79.891 Long term (current) use of opiate analgesic; Z71.6 Tobacco abuse counseling | CPT/HCPCS: 99214 ==

== ENCOUNTER → 2020-04-05 13:10 | Outpatient (BNVA) | payer MEDICARE, SELFPAY | PROVIDERS: PCP Family Medicine; Visit Provider Specialist | DX: M17.11 Unilateral primary osteoarthritis, right knee (principal) | CPT/HCPCS: 73562 ==

== ENCOUNTER 2020-04-14 11:16 | Outpatient (CLI) | payer MEDICARE, SELFPAY ==
--- NOTE | 2020-04-14 11:00 | USCV_ITS ---
Troy Goode Age: 59 Gender: M : 1960 Exam Date: 04/14/2020 12:04 Ordering Phys: Piedad Lanier Technologist: Fe Martinez [place] [facility] [place]: shortness of breath BP: / HR: 66 Rhythm: Sinus Technical Quality: Adequate MEASUREMENTS (Male / Female) Normal Values 2D ECHO LV Diastolic Diameter PLAX 4.2 cm 4.2 - 5.9 / 3.9 - 5.3 cm LV Systolic Diameter PLAX 2.3 cm IVS Diastolic Thickness 1.3 cm 0.6 - 1.0 / 0.6 - 0.9 cm IVS Systolic Thickness 1.7 cm LVPW Diastolic Thickness 0.8 cm 0.6 - 1.0 / 0.6 - 0.9 cm LVPW Systolic Thickness 1.6 cm LVOT Diameter 2.1 cm LV Ejection Fraction 2D Teich 77.1 % LV Ejection Fraction MOD 2C 67.3 % LV Ejection Fraction 2C AL 68.0 % LA Diameter 2.7 cm LA Width 2.3 cm LA Height 4.3 cm RA Width 3.7 cm RA Height 4.8 cm M-MODE LV Diastolic Diameter MM 5.3 cm 4.2 - 5.9 / 3.9 - 5.3 cm LV Systolic Diameter MM 3.8 cm LV Ejection Fraction MM Teich 52.3 % IVS Diastolic Thickness MM 1.0 cm 0.6 - 1.0 / 0.6 - 0.9 cm IVS Systolic Thickness MM 1.1 cm LVPW Diastolic Thickness MM 0.9 cm 0.6 - 1.0 / 0.6 - 0.9 cm LVPW Systolic Thickness MM 1.4 cm Aortic Annulus Diameter 3.0 cm LA Ao Ratio MM 0.9 MV E Point Septal Separation 0.5 cm DOPPLER AV Peak Velocity 115.0 cm/s LVOT Peak Velocity 96.0 cm/s AV Area Cont Eq vti 2.8 cm squared AV Area Cont Eq pk 2.8 cm squared MV Peak Velocity 84.0 cm/s MV Area PHT 4.3 cm squared Mitral E to A Ratio 1.1 MV E' Velocity 8.0 cm/s Mitral E to MV E' Ratio 8.6 Mitral E to LV E' Lateral Ratio 8.6 Mitral E to LV E' Septal Ratio 8.7 TR Peak Velocity 71.0 cm/s TR Peak Gradient 2.0 mmHg Right Atrial Pressure 3.0 mmHg Pulmonary Artery Systolic Pressu 5.0 mmHg PV Peak Velocity 86.0 cm/s RV Acceleration Time 0.1 s FINDINGS Left Ventricle Normal left ventricular cavity size. Normal left ventricular systolic function. No regional wall motion abnormalities. Left ventricular ejection fraction is estimated at 55 %. Grade II/IV diastolic dysfunction, moderately elevated filling pressures. Right Ventricle The right ventricle is normal in size and function. Right Atrium The right atrium is normal in size. Left Atrium The left atrium is normal in size. Mitral Valve Structurally normal mitral valve without significant stenosis or prolapse. There is no mitral regurgitation. Aortic Valve Structurally normal aortic valve without significant sclerosis or stenosis. There is no aortic regurgitation. Tricuspid Valve Structurally normal tricuspid valve without significant stenosis or regurgitation. Pulmonary artery systolic pressure is normal. Pulmonic Valve Structurally normal pulmonic valve without significant stenosis. There is no pulmonic regurgitation. Pericardium Normal pericardium without effusion. Aorta Normal ascending aorta dimension. CONCLUSIONS 1-Normal left ventricular cavity size. Normal left ventricular systolic function. No regional wall motion abnormalities. Left ventricular ejection fraction is estimated at 55 %. Grade II/IV diastolic dysfunction, moderately elevated filling pressures. 2-There is no pericardial effusion. 3-No significant valve abnormalities. 4-Pulmonary artery systolic pressure is within normal limits. 5-Right atrial pressure is around 5 mm of mercury. 6-There are no prior echocardiogram studies to compare. Tulio Harper MD (Electronically Signed) Final Date: 14 April 2020 18:42 S
== END 2020-04-14 11:17 | disposition home or self-care (01) ==
LOC: RAD 11:20
PROVIDERS: PCP Family Medicine; Visit Provider Internal Medicine Critical Care Medicine
DX: I50.9 Heart failure, unspecified (principal); R06.02 Shortness of breath; I51.81 Takotsubo syndrome
CPT/HCPCS: 93306

== ENCOUNTER → 2020-05-13 07:56 | Outpatient (BNVA) | payer MEDICARE, SELFPAY | PROVIDERS: PCP Family Medicine; Visit Provider Anesthesiology | DX: M54.42 Lumbago with sciatica, left side (principal); M54.41 Lumbago with sciatica, right side; M54.9 Dorsalgia, unspecified; F17.210 Nicotine dependence, cigarettes, uncomplicated | CPT/HCPCS: 62323; J1040; J3490 ==

== ENCOUNTER → 2020-06-15 09:59 | Outpatient (BNVA) | payer MEDICARE, SELFPAY | PROVIDERS: PCP Family Medicine; Visit Provider Anesthesiology | DX: G89.29 Other chronic pain (principal); M54.42 Lumbago with sciatica, left side; M54.41 Lumbago with sciatica, right side; M54.2 Cervicalgia; M54.9 Dorsalgia, unspecified; F17.210 Nicotine dependence, cigarettes, uncomplicated; Z79.891 Long term (current) use of opiate analgesic | CPT/HCPCS: 99213; 99214 ==

== ENCOUNTER 2020-06-30 16:47 | Outpatient (CLI) | payer MEDICARE, SELFPAY ==
--- NOTE | 2020-06-30 16:45 | MR_ITS ---
WS: [id number] MRI LUMBAR SPINE NONCONTRAST TECHNIQUE: Sagittal T1, T2 and STIR imaging. Axial T1 and T2 imaging. CLINICAL INFORMATION: [id number] COMPARISON: FINDINGS: Counting performed from the craniocervical junction. L5 is partially sacralized. Disc fusion L5-S1. G rade 1 anterolisthesis L4 on L5 is unchanged. Bony fusion L5-S1. Clumping of the cauda equina nerve r ootlets worse at L4-L5 with peripheral displacement consistent with arachnoiditis. L1-L2: Normal. L2-L3: Minimal annular bulging. Mild left greater than right foraminal narrowing. Mild facet arthropa thy with ligament flavum hypertrophy. Slight narrowing of the subarticular recess bilaterally. L3-L4: Annular bulging with narrowing of the subarticular recess bilaterally. Encroachment traversing L4 nerve roots. Mild left and no significant right foraminal narrowing. Moderate facet arthropathy w ith narrowing of the subarticular recess bilaterally. Ligamentum flavum hypertrophy. L4-L5: Slight grade 1 anterolisthesis L4 on L5. Mild left and no significant right foraminal narrowin g. Impingement on traversing left L5 nerve root. Moderate facet arthropathy. L5-S1: Prior postoperative changes interbody fusion. Spinal canal and foramen are patent. Prior christiano ectomy defects. Small left renal cyst. Mild disc bulging C5-C6 with mild central canal stenosis in the cervical spine. MR/MR lumbar spine wo con* [id number] IMPRESSION: 1. Mild lumbar curve. No acute compression. Grade 1 anterolisthesis L4 on L5. 2. Mild central canal stenosis L3-L4 due to disc bulging and facet arthropathy with ligamentum flavum hypertrophy. Impingement on the traversing L4 nerve jalen ts bilaterally. Mild left greater than right foraminal narrowing at this level. 3. Grade 1 anterolisthesis L4 on L5 with mild disc bulging with impingement on the left subarticular recess and traversing left L5 nerve root. Mild left L4-5 foraminal narrowing. 4. Changes of arachnoiditis lower lumbar spine described above unchanged from previous. 5. Prior interbody fusion L5-S1 with dorsal laminectomy defects. Spinal canal and foramen are patent at this level. 6. Overall no significant changes since 2014
== END 2020-06-30 16:48 | disposition home or self-care (01) ==
LOC: RADSHAW 16:51
PROVIDERS: PCP Family Medicine; Visit Provider Anesthesiology
DX: Z98.1 Arthrodesis status (principal); M48.061 Spinal stenosis, lumbar region without neurogenic claudication; M51.26 Other intervertebral disc displacement, lumbar region
CPT/HCPCS: 72148

== ENCOUNTER → 2020-07-20 11:51 | Outpatient (BNVA) | payer MEDICARE, SELFPAY | PROVIDERS: PCP Family Medicine; Visit Provider Family Medicine | DX: E78.5 Hyperlipidemia, unspecified (principal); I10 Essential (primary) hypertension; E11.9 Type 2 diabetes mellitus without complications | CPT/HCPCS: 80053; 80061; 83036; 85025 ==

== ENCOUNTER → 2020-08-11 10:22 | Outpatient (BNVA) | payer MEDICARE, SELFPAY | PROVIDERS: PCP Family Medicine; Visit Provider Anesthesiology | DX: G89.29 Other chronic pain (principal); M54.42 Lumbago with sciatica, left side; M54.41 Lumbago with sciatica, right side; M54.2 Cervicalgia; M54.9 Dorsalgia, unspecified; F17.219 Nicotine dependence, cigarettes, with unspecified nicotine-induced disorders; Z79.891 Long term (current) use of opiate analgesic | CPT/HCPCS: 99213; 99214 ==

== ENCOUNTER → 2020-09-02 09:08 | Outpatient (BNVA) | payer MEDICARE, SELFPAY | PROVIDERS: PCP Family Medicine; Visit Provider Anesthesiology | DX: G89.29 Other chronic pain (principal); M54.41 Lumbago with sciatica, right side; M54.42 Lumbago with sciatica, left side; M54.9 Dorsalgia, unspecified; M54.2 Cervicalgia; F17.210 Nicotine dependence, cigarettes, uncomplicated | CPT/HCPCS: 62323; J1040; J3490 ==

== ENCOUNTER → 2020-10-19 13:33 | Outpatient (BNVA) | payer MEDICARE, SELFPAY | PROVIDERS: PCP Family Medicine; Visit Provider Anesthesiology | DX: M54.2 Cervicalgia (principal); M54.9 Dorsalgia, unspecified; G89.29 Other chronic pain; F17.219 Nicotine dependence, cigarettes, with unspecified nicotine-induced disorders; Z79.891 Long term (current) use of opiate analgesic; M17.0 Bilateral primary osteoarthritis of knee | CPT/HCPCS: 99214 ==

== ENCOUNTER → 2020-11-19 14:55 | Outpatient (BNVA) | payer MEDICARE, SELFPAY | PROVIDERS: PCP Family Medicine; Visit Provider Family Medicine | DX: J96.11 Chronic respiratory failure with hypoxia (principal) | CPT/HCPCS: 87635 ==

== ENCOUNTER 2020-11-23 08:02 | Outpatient (CLI) | payer MEDICARE, SELFPAY ==
[2020-11-23 08:47] VITALS: BP 123/76
== END 2020-11-23 08:03 | disposition home or self-care (01) ==
LOC: RT 08:08
PROVIDERS: PCP Family Medicine; Visit Provider Internal Medicine Critical Care Medicine
DX: J44.9 Chronic obstructive pulmonary disease, unspecified (principal)
CPT/HCPCS: 94618

== ENCOUNTER 2020-12-03 18:36 | Inpatient (IN) | payer MEDICARE, SELFPAY ==
[2020-12-03] VITALS (25 sets, daily range): BP systolic 73–153; BP diastolic 43–97; PULSE 56–84; RESP 12–17; TEMP 32.6–36.3; O2SAT 95–100; BMI 46.5
--- NOTE | 2020-12-03 18:45 | CTR_ITS ---
PROCEDURE INFORMATION: Exam: CT Head Without Contrast Exam date and time: 12/03/2020 6:59 PM Age: 60 years old Clinical indication: Coma or unconsciousness; Patient HX: Found on floor - unknown downtime - amd - uncooperative p narcan - intubated; Additional info: AMS TECHNIQUE: Imaging protocol: Computed tomography of the head without contrast. Radiation optimization: All CT scans at this facility use at least one of these dose optimization techniques: automated exposure control; mA and/or kV adjustment per patient size (includes targeted exams where dose is matched to clinical indication); or iterative reconstruction. COMPARISON: CT head wo con* [id number] 07/22/2018 9:41 AM RADIATION DOSE METRICS: Total DLP (mGy-cm): 889.88 FINDINGS: Brain: There is moderate cerebral atrophy. No acute intracranial hemorrhage. No space-occupying intracranial mass. [place] matter and white matter interfaces are preserved. No midline shift of brain. No acute cerebral sulcal effacement. Cerebral ventricles: No ventriculomegaly. Bones/joints: The prominent cystic space in the right posterior calvarial bones stable in appearance from prior. No acute calvarial fracture. Paranasal sinuses: Visualized sinuses are unremarkable. No fluid levels. Mastoid air cells: Visualized mastoid air cells are well aerated. Vasculature: Scattered intracranial atherosclerosis. Soft tissues: Unremarkable. CT/CT head wo con* [id number] IMPRESSION: 1. Negative for acute intracranial abnormality. 2. No change in the brain from comparison on 07/22/2018. Radiation Dose CTDIVOL = (mGy): DLP = 889.88 (mGy-cm)
--- NOTE | 2020-12-03 18:45 | XRR_ITS ---
PROCEDURE INFORMATION: Exam: XR Chest, 1 View Exam date and time: 12/03/2020 6:49 PM Age: 60 years old Clinical indication: Other: AMS TECHNIQUE: Imaging protocol: XR of the chest Views: 1 view. COMPARISON: CT chest [facility] [id number] 02/09/2020 9:08 AM FINDINGS: Tubes, catheters and devices: Endotracheal tube in the midtrachea just below the clavicles about 7 cm above evie. NG tube in the stomach but incompletely assessed. Lungs: Mild emphysematous changes of the lungs. No focal lung consolidation. Pleural spaces: Unremarkable. No pleural effusion. No pneumothorax. Heart/Mediastinum: Unremarkable. No cardiomegaly. Bones/joints: Unremarkable. XR/XR chest 1V portable [id number] IMPRESSION: No focal acute pulmonary disease identified.
--- NOTE | 2020-12-03 18:47 | ECG_ITS ---
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 Measurements Intervals [place] Rate: 60 P: 62 MN: 216 QRS: -16 QRSD: 125 T: 31 QT: 486 QTc: 487 Interpretive Statements SINUS RHYTHM WITH FIRST DEGREE AV BLOCK POSSIBLE RIGHT VENTRICULAR CONDUCTION DELAY [RSR (QR) IN V1/V2] POSSIBLE INFERIOR MYOCARDIAL INFARCTION , OF INDETERMINATE AGE [30 ms Q WAVE IN II/aVF] MODERATE T-WAVE ABNORMALITY, CONSIDER ANTERIOR ISCHEMIA [-0.1+ mV T WAVE IN V3/V4] Compared to ECG 12/03/2020 19:52:49 Myocardial infarct finding now present T-wave abnormality now present Possible ischemia now present Right bundle-branch block no longer present Electronically Signed On 12-04-2020 19:21:36 FEEDER ASSOCIATE by Elke Davila M.D. [id number]
[2020-12-03 19:05] LABS: Basophils # 0.1 10^3/uL (0.0-0.1); Basophils % 0.3 %; Eosinophils % 0.1 %; Hematocrit 47.1 % (42.0-52.0); Hemoglobin 15.3 g/dL (11.7-16.6); Lymphocytes # 6.1 10^3/uL (0.8-4.8); Lymphocytes % 20.6 %; Mean Corpuscular HGB Conc 32.5 g/dL (30.0-36.0); Mean Corpuscular Hemoglobin 31.1 pg (28.0-34.0); Mean Corpuscular Volume 95.7 fL (80-94); Mean Platelet Volume 10.6 fL (7.4-10.4); Monocytes # 1.8 10^3/uL (0.2-0.9); Monocytes % 6.1 %; Neutrophils # 21.29 10^3/uL (1.8-7.7); Neutrophils % 71.9 %; Nucleated Red Blood Cells % 0 %; Platelet Count 282 10^3/cmm (130-400); Red Blood Count 4.92 10^6/uL (4.1-5.3); Red Cell Distribution Width 13.9 % (12.1-15.1); White Blood Count 29.7 10^3/uL (4.0-10.0)
[2020-12-03 19:16] LABS: INR 1.09 (0.8-1.2)
[2020-12-03] MEDS: vecuronium 10 mg SDV IVP (19:22)
[2020-12-03] MEDS: sodium chloride 0.9% 1,000 ML 999 ML IV ×2 (19:25→20:25)
[2020-12-03] MEDS: propofol 1,000 MG/100 ML INJ 3.8 MG IV (19:29)
[2020-12-03 19:42] LABS: Troponin(5th) Baseline 66 ng/L (0-15)
[2020-12-03 19:45] LABS: Alanine Aminotransferase 47 U/L (0-41); Alkaline Phosphatase 176 IU/L (40-130); Aspartate Amino Transferase 40 U/L (0-40); Blood Urea Nitrogen 28 mg/dL (6-20); Carbon Dioxide 16 mmol/L (22-29); Chloride 90 mmol/L (98-107); Globulin 2.5 g/dL (1.3-4.6); Glomerular Filtration Rate 32.6 mL/min (90-130); Glucose 250 mg/dL (65-115); Lipase 53 U/L (13-60); Magnesium 2.9 mg/dL (1.7-2.3); Osmolality Calculated 294 mOsm/kg (285-295); Sodium 135 mmol/L (136-145); Thyroid Stimulating Hormone 0.59 uIU/mL (0.27-4.20); Total Bilirubin 0.3 mg/dL (0.15-1.2); Total Protein 6.5 g/dL (6.6-8.7)
[2020-12-03 19:46] LABS: Lactate (Lactic Acid level) 13.3 mmol/L (0.5-2.2)
--- NOTE | 2020-12-03 19:46 | W.ED.AMS ---
HPI - Altered Mental Status General: Chief Complaint: Altered Mental Status Stated Complaint: AMS/ LETHARGIC Time Seen by Provider: 12/03/20 18:37 Source: patient and EMS Mode of arrival: EMS Limitations: no limitations History of Present Illness: HPI narrative: 60-year-old male who was found by his this evening. She found him at the front door patient was altered and quite cold and had been outside. When EMS arrived the he was combative and they gave him Ativan he became hypoxic. They gave him Narcan and he awoke. Patient now is still very confused but is able to tell me his name. No other history noted. He does have any bruises but is quite cold and his core body temp is 90. Review of Systems General: Reports: ROS unobtainable due to mental status PFS ED PFSH: Medical History (Updated 12/03/20 @ 21:11 by Priscilla Wolfe MD) Chronic back pain Chronic neck and back pain Controlled type 2 diabetes mellitus, without long-term current use of insulin COPD, moderate Dyslipidemia Encounter for long-term opiate analgesic use Enrolled in chronic care management Essential (primary) hypertension Gastritis Hypothyroidism, unspecified Incomplete bladder emptying Iron deficiency anemia Tear of medial collateral ligament of left knee Vitamin D deficiency Surgical History H/O circumcision H/O colonoscopy 11/20/2016 H/O esophagogastroduodenoscopy 2014 H/O knee surgery H/O oral surgery H/O shoulder surgery left to remove mass History of back surgery Family History Father Diabetes Stroke Bleeding disorder Mother Diabetes Cancer SKIN Other CAD (coronary artery disease) Lung disease Denies family history of Anesthesia complication Social History Smoking and tobacco status: current every day smoker cigarettes Packs smoked per day: 0.5 Years cigarettes smoked: 45 Quit status (tobacco): has tried quititng Smoking risk assessment/counseling performed?: Yes Alcohol intake: never Lives independently: Yes Household members: spouse Marital status: Current occupational status: disabled History of recent travel: No Current gender identity: Male Physical Exam Const: COMMON NORMALS: alert; negative for patient oriented x3 ORIENTATION/CONSCIOUSNESS: Yes oriented to person; not oriented to place and not oriented to time OTHER: But is very cold to touch. Patient is able to tell me his name but unable answer any other questions at all he just keeps repeating his name. HENMT: COMMON NORMALS: normocephalic and atraumatic HEAD & SCALP: normocephalic and atraumatic Eye: COMMON NORMALS: Equal, round and reactive pupils present and EOMs intact bilaterally PUPIL: Yes Equal, round and reactive pupils present Neck/C-Spine: COMMON NORMALS: full ROM and supple OTHER: No tenderness Chest: COMMONS NORMALS: normal inspection of the chest and normal palpation of entire chest wall Resp: COMMON NORMALS: normal respiratory effort, No retractions, No use of accessory muscles and clear to auscultation bilaterally AUSCULTATION: clear to auscultation bilaterally Cardio: COMMON NORMALS: regular rate, regular rhythm and No murmurs present (Cardio) RATE: regular rate RHYTHM: regular rhythm GI: COMMON NORMALS: Normal to inspection, nondistended, normoactive bowel sounds present, Soft to palpation, non-tender and no masses PALPATION: Yes Soft to palpation Extremity: COMMON NORMALS: normal to inspection and full ROM Neuro: COMMON NORMALS: moves all extremities and no focal motor deficits; negative for patient oriented x3 SENSORIUM/ORIENTATION: Yes alert, Yes oriented to person, No oriented to place and No oriented to time Psych: COMMON NORMALS: negative for mental status grossly normal Skin: COMMON NORMALS: no rashes or lesions noted and no wounds GENERAL SKIN EXAM: no rashes or lesions noted Procedures Intubation Time out performed: Yes sedative: Etomidate Mg Given: 20 paralytic: Vecuronium Mg Given: 10 Laryngoscope: Prema ET Tube Size: 8 ET Tube Uncuffed: No Tube Secured Depth (cm): 24 Tube Secured Location: teeth Tube Placement Confirmation: visualized tube passing through cords, equal breath sounds bilaterally, no breath sounds over epigastrium and confirmation by capnometry Patient Tolerated Procedure: well Intubation Complications: none Lumbar Puncture Time Out Performed: Yes Patient Position: left lateral decubitus Skin Prep: Povidone-Iodine 1% Spinal Needle Gauge: 20G Interspace Used: L4-L5 Fluid Initially Obtained: clear Complications: none Course Vital Signs: Vital signs: Vital Signs Temperature 92.2 F L 12/03/20 20:56 Pulse Rate 59 L 12/03/20 21:30 Respiratory Rate 14 12/03/20 21:30 Blood Pressure 95/53 12/03/20 21:30 Pulse Oximetry 98 12/03/20 21:30 MDM - Altered Mental Status MDM Narrative: Medical decision making narrative: Troy presents with altered mental status along with hypothermia. Patient was quite confused so he he was intubated. Patient's head CT here is normal. He did have an elevated lactate along with white blood cell count. Patient given IV fluids that were warmed along with a bear hugger. No signs of infection noted. Did do a lumbar puncture as well showed clear fluid. Patient given IV antibiotics. I spoke to the hospitalist will admit to the ICU. Lab Data: Labs: Lab Results 12/03/20 12/03/20 12/03/20 Range/Units 18:55 18:55 18:55 WBC 29.7 H (4.0-10.0) 10^3/ uL RBC 4.92 (4.1-5.3) 10^6/u L Hgb 15.3 (11.7-16.6) g/dL Hct 47.1 (42.0-52.0) % MCV 95.7 H (80-94) fL MCH 31.1 (28.0-34.0) pg MCHC 32.5 (30.0-36.0) g/dL RDW 13.9 (12.1-15.1) % Plt Count 282 (130-400) 10^3/c mm MPV 10.6 H (7.4-10.4) fL Neut % (Auto) 71.9 % Lymph % (Auto) 20.6 % [place] % (Auto) 6.1 % Eos % (Auto) 0.1 % Baso % (Auto) 0.3 % Neut # (Auto) 21.29 H (1.8-7.7) 10^3/u L Lymph # (Auto) 6.1 H (0.8-4.8) 10^3/u L [place] # (Auto) 1.8 H (0.2-0.9) 10^3/u L Eos # (Auto) 0.0 (0.0-0.8) 10^3/u L Baso # (Auto) 0.1 (0.0-0.1) 10^3/u L Nucleated RBC % (a uto) 0 % Nucleated RBCs # 0.0 /100WBC PT 14.50 (12.1-14.9) SECO NDS INR 1.09 (0.8-1.2) Specimen Type Sample Site ABG pH (7.35-7.45) ABG pCO2 (35-45) mmHg ABG pO2 (80.0-100.0) mmH g ABG HCO3 (22-26) mmol/L ABG Base Excess (-2.0-2.0) mmol/ L Jonathan Test Hematocrit (42-52) % O2 Delivery Device Mechanical Rate FiO2 % Tidal Volume PEEP cmH20 Poacher Wringer Operator ID Sodium 135 L (136-145) mmol/L Potassium 4.0 (3.5-5.1) mmol/L Chloride 90 L (98-107) mmol/L Carbon Dioxide 16 L (22-29) mmol/L Anion Gap 33.0 H (5-19) BUN 28 H (6-20) mg/dL Creatinine 2.1 H (0.7-1.2) mg/dL GFR Calculation 32.6 L (90-130) mL/min Glucose 250 H (65-115) mg/dL Calculated Osmolal ity 294 (285-295) mOsm/k g Lactate (0.5-2.2) mmol/L Calcium 9.0 (8.5-10.5) mg/dL Magnesium 2.9 H (1.7-2.3) mg/dL Total Bilirubin 0.3 (0.15-1.2) mg/dL AST 40 (0-40) U/L ALT 47 H (0-41) U/L Alkaline Phosphata se 176 H (40-130) IU/L Troponin T Baselin e (0-15) ng/L Total Protein 6.5 L (6.6-8.7) g/dL Albumin 4.0 (3.5-5.2) g/dL Globulin 2.5 (1.3-4.6) g/dL Lipase 53 (13-60) U/L TSH 0.59 (0.27-4.20) uIU/ mL Urine Color (Yellow) Urine Appearance (CLEAR) Urine pH (5-7) Ur Specific Gravit y (1.005-1.030) Urine Protein (Negative) Urine Glucose (UA) (Normal) Urine Ketones (Negative) Urine Blood (Negative) Urine Nitrate (Negative) Urine Bilirubin (Negative) Urine Urobilinogen (Negative) mg/dL Ur Leukocyte Malika ase (Negative) Urine RBC (0-2) /hpf Urine WBC (0-5) /hpf Ur Squamous Epith Cells (0-5) /hpf Amorphous Sediment /hpf Urine Bacteria (NONE) /hpf Hyaline Casts /lpf Salicylates < 0.3 L (3-10) mg/dL Urine Opiates Scre en (Negative) ng/mL Acetaminophen < 5.0 L (10-30) ug/mL Ur Barbiturates Sc reen (Negative) ng/mL Ur Phencyclidine S crn (Negative) ng/mL Ur Amphetamines Sc reen (Negative) ng/mL U Benzodiazepines Scrn (Negative) ng/mL Urine Cocaine Scre en (Negative) ng/mL U Marijuana (THC) Screen (Negative) ng/mL Ethyl Alcohol < 10 (0-10) mg/dL 12/03/20 12/03/20 12/03/20 Range/Units 18:55 18:55 19:58 WBC (4.0-10.0) 10^3/ uL RBC (4.1-5.3) 10^6/u L Hgb (11.7-16.6) g/dL Hct (42.0-52.0) % MCV (80-94) fL MCH (28.0-34.0) pg MCHC (30.0-36.0) g/dL RDW (12.1-15.1) % Plt Count (130-400) 10^3/c mm MPV (7.4-10.4) fL Neut % (Auto) % Lymph % (Auto) % [place] % (Auto) % Eos % (Auto) % Baso % (Auto) % Neut # (Auto) (1.8-7.7) 10^3/u L Lymph # (Auto) (0.8-4.8) 10^3/u L [place] # (Auto) (0.2-0.9) 10^3/u L Eos # (Auto) (0.0-0.8) 10^3/u L Baso # (Auto) (0.0-0.1) 10^3/u L Nucleated RBC % (a uto) % Nucleated RBCs # /100WBC PT (12.1-14.9) SECO NDS INR (0.8-1.2) Specimen Type Sample Site ABG pH (7.35-7.45) ABG pCO2 (35-45) mmHg ABG pO2 (80.0-100.0) mmH g ABG HCO3 (22-26) mmol/L ABG Base Excess (-2.0-2.0) mmol/ L Jonathan Test Hematocrit (42-52) % O2 Delivery Device Mechanical Rate FiO2 % Tidal Volume PEEP cmH20 Poacher Wringer Operator ID Sodium (136-145) mmol/L Potassium (3.5-5.1) mmol/L Chloride (98-107) mmol/L Carbon Dioxide (22-29) mmol/L Anion Gap (5-19) BUN (6-20) mg/dL Creatinine (0.7-1.2) mg/dL GFR Calculation (90-130) mL/min Glucose (65-115) mg/dL Calculated Osmolal ity (285-295) mOsm/k g Lactate 13.3 H* (0.5-2.2) mmol/L Calcium (8.5-10.5) mg/dL Magnesium (1.7-2.3) mg/dL Total Bilirubin (0.15-1.2) mg/dL AST (0-40) U/L ALT (0-41) U/L Alkaline Phosphata se (40-130) IU/L Troponin T Baselin e 66 H (0-15) ng/L Total Protein (6.6-8.7) g/dL Albumin (3.5-5.2) g/dL Globulin (1.3-4.6) g/dL Lipase (13-60) U/L TSH (0.27-4.20) uIU/ mL Urine Color Yellow (Yellow) Urine Appearance Clear (CLEAR) Urine pH 5 (5-7) Ur Specific Gravit y 1.025 (1.005-1.030) Urine Protein Neg (Negative) Urine Glucose (UA) Norm (Normal) Urine Ketones Negative (Negative) Urine Blood 3+ H (Negative) Urine Nitrate Negative (Negative) Urine Bilirubin Neg (Negative) Urine Urobilinogen Norm (Negative) mg/dL Ur Leukocyte Malika ase Negative (Negative) Urine RBC 0-4 H (0-2) /hpf Urine WBC 0-4 H (0-5) /hpf Ur Squamous Epith Cells 0-4 H (0-5) /hpf Amorphous Sediment 3+ /hpf Urine Bacteria 1+ H (NONE) /hpf Hyaline Casts 15-25 H /lpf Salicylates (3-10) mg/dL Urine Opiates Scre en (Negative) ng/mL Acetaminophen (10-30) ug/mL Ur Barbiturates Sc reen (Negative) ng/mL Ur Phencyclidine S crn (Negative) ng/mL Ur Amphetamines Sc reen (Negative) ng/mL U Benzodiazepines Scrn (Negative) ng/mL Urine Cocaine Scre en (Negative) ng/mL U Marijuana (THC) Screen (Negative) ng/mL Ethyl Alcohol (0-10) mg/dL 12/03/20 12/03/20 Range/Units 19:58 21:00 WBC (4.0-10.0) 10^3/ uL RBC (4.1-5.3) 10^6/u L Hgb (11.7-16.6) g/dL Hct (42.0-52.0) % MCV (80-94) fL MCH (28.0-34.0) pg MCHC (30.0-36.0) g/dL RDW (12.1-15.1) % Plt Count (130-400) 10^3/c mm MPV (7.4-10.4) fL Neut % (Auto) % Lymph % (Auto) % [place] % (Auto) % Eos % (Auto) % Baso % (Auto) % Neut # (Auto) (1.8-7.7) 10^3/u L Lymph # (Auto) (0.8-4.8) 10^3/u L [place] # (Auto) (0.2-0.9) 10^3/u L Eos # (Auto) (0.0-0.8) 10^3/u L Baso # (Auto) (0.0-0.1) 10^3/u L Nucleated RBC % (a uto) % Nucleated RBCs # /100WBC PT (12.1-14.9) SECO NDS INR (0.8-1.2) Specimen Type Arterial Sample Site Radial, left ABG pH 7.24 L (7.35-7.45) ABG pCO2 58.2 H (35-45) mmHg ABG pO2 413.0 H (80.0-100.0) mmH g ABG HCO3 24.7 (22-26) mmol/L ABG Base Excess -3.8 L (-2.0-2.0) mmol/ L Jonathan Test Pos Hematocrit 42.7 (42-52) % O2 Delivery Device Vent Mechanical Rate 14.0 FiO2 100.0 % Tidal Volume 0.50 PEEP 8.0 cmH20 Poacher Wringer Operator ID [id number] Sodium (136-145) mmol/L Potassium (3.5-5.1) mmol/L Chloride (98-107) mmol/L Carbon Dioxide (22-29) mmol/L Anion Gap (5-19) BUN (6-20) mg/dL Creatinine (0.7-1.2) mg/dL GFR Calculation (90-130) mL/min Glucose (65-115) mg/dL Calculated Osmolal ity (285-295) mOsm/k g Lactate (0.5-2.2) mmol/L Calcium (8.5-10.5) mg/dL Magnesium (1.7-2.3) mg/dL Total Bilirubin (0.15-1.2) mg/dL AST (0-40) U/L ALT (0-41) U/L Alkaline Phosphata se (40-130) IU/L Troponin T Baselin e (0-15) ng/L Total Protein (6.6-8.7) g/dL Albumin (3.5-5.2) g/dL Globulin (1.3-4.6) g/dL Lipase (13-60) U/L TSH (0.27-4.20) uIU/ mL Urine Color (Yellow) Urine Appearance (CLEAR) Urine pH (5-7) Ur Specific Gravit y (1.005-1.030) Urine Protein (Negative) Urine Glucose (UA) (Normal) Urine Ketones (Negative) Urine Blood (Negative) Urine Nitrate (Negative) Urine Bilirubin (Negative) Urine Urobilinogen (Negative) mg/dL Ur Leukocyte Malika ase (Negative) Urine RBC (0-2) /hpf Urine WBC (0-5) /hpf Ur Squamous Epith Cells (0-5) /hpf Amorphous Sediment /hpf Urine Bacteria (NONE) /hpf Hyaline Casts /lpf Salicylates (3-10) mg/dL Urine Opiates Scre en Positive H (Negative) ng/mL Acetaminophen (10-30) ug/mL Ur Barbiturates Sc reen Negative (Negative) ng/mL Ur Phencyclidine S crn Negative (Negative) ng/mL Ur Amphetamines Sc reen Negative (Negative) ng/mL U Benzodiazepines Scrn Negative (Negative) ng/mL Urine Cocaine Scre en Negative (Negative) ng/mL U Marijuana (THC) Screen Negative (Negative) ng/mL Ethyl Alcohol (0-10) mg/dL Imaging Data^: CT Head: Radiologist's impression: [facility] [address] [address] Scan Report Signed Patient: Troy Goode Unit #: [id number] : 1960 Age/Sex: 60 / M ADM Date: 12/03/20 Loc: ER Room/Bed: Attending Dr: Ordering Provider/Ordering MD: Priscilla Wolfe MD Date of Service: 12/03/20 Procedure(s): CT head wo con* [id number] Accession Number(s): [id number] Report Number: [id number] PROCEDURE INFORMATION: Exam: CT Head Without Contrast Exam date and time: 12/03/2020 6:59 PM Age: 60 years old Clinical indication: Coma or unconsciousness; Patient HX: Found on floor - unknown downtime - amd - uncooperative p narcan - intubated; Additional info: AMS TECHNIQUE: Imaging protocol: Computed tomography of the head without contrast. Radiation optimization: All CT scans at this facility use at least one of these dose optimization techniques: automated exposure control; mA and/or kV adjustment per patient size (includes targeted exams where dose is matched to clinical indication); or iterative reconstruction. COMPARISON: CT head wo con* [id number] 07/22/2018 9:41 AM RADIATION DOSE METRICS: Total DLP (mGy-cm): 889.88 FINDINGS: Brain: There is moderate cerebral atrophy. No acute intracranial hemorrhage. No space-occupying intracranial mass. [place] matter and white matter interfaces are preserved. No midline shift of brain. No acute cerebral sulcal effacement. Cerebral ventricles: No ventriculomegaly. Bones/joints: The prominent cystic space in the right posterior calvarial bones stable in appearance from prior. No acute calvarial fracture. Paranasal sinuses: Visualized sinuses are unremarkable. No fluid levels. Mastoid air cells: Visualized mastoid air cells are well aerated. Vasculature: Scattered intracranial atherosclerosis. Soft tissues: Unremarkable. CT/CT head wo con* [id number] IMPRESSION: 1. Negative for acute intracranial abnormality. 2. No change in the brain from comparison on 07/22/2018. Radiation Dose CTDIVOL = (mGy): DLP = 889.88 (mGy-cm) CXR: Radiologist's impression: [facility] [address] XRay Report Signed Patient: Troy Goode Unit #: [id number] : 1960 Age/Sex: 60 / M ADM Date: 12/03/20 Loc: ER Room/Bed: Attending Dr: Ordering Provider/Ordering MD: Priscilla Wolfe MD Date of Service: 12/03/20 Procedure(s): XR chest 1V portable [id number] Accession Number(s): [id number] Report Number: [id number] PROCEDURE INFORMATION: Exam: XR Chest, 1 View Exam date and time: 12/03/2020 6:49 PM Age: 60 years old Clinical indication: Other: AMS TECHNIQUE: Imaging protocol: XR of the chest Views: 1 view. COMPARISON: CT chest wo con [id number] 02/09/2020 9:08 AM FINDINGS: Tubes, catheters and devices: Endotracheal tube in the midtrachea just below the clavicles about 7 cm above evie. NG tube in the stomach but incompletely assessed. Lungs: Mild emphysematous changes of the lungs. No focal lung consolidation. Pleural spaces: Unremarkable. No pleural effusion. No pneumothorax. Heart/Mediastinum: Unremarkable. No cardiomegaly. Bones/joints: Unremarkable. XR/XR chest 1V portable [id number] IMPRESSION: No focal acute pulmonary disease identified. EKG Data^: EKG 1: Attestation: I personally reviewed and interpreted this EKG as follows: EKG interpretation date: 12/03/20 EKG interpretation time: 19:52 Interpretation: nsr hr [address] elevation qrs 130 qtc 467 Critical Care Time Critical Care Time: Critical Care Time: Yes Total Critical Care Time: 35 Attestation: This case had a high probability of a clinically significant, sudden, or life threatening deterioration of this patient's condition which required my full and direct attention, intervention and personal management. Discharge Plan Discharge Patient Disposition: Admitted As Inpatient Admit Provider: Sally Graves Clinical Impression: Altered mental state Qualifiers: Altered mental status type: unspecified Qualified Code(s): R41.82 - Altered mental status, unspecified Hypothermia Qualifiers: Encounter type: initial encounter Qualified Code(s): T68.XXXA - Hypothermia, initial encounter Condition: Stable Coding Level of Care Code ED Case Mgr for Viviang Fwd Exam Comprehensive
[2020-12-03 19:49] LABS: Acetaminophen < 5.0 ug/mL (10-30); Alcohol Level < 10 mg/dL (0-10); Salicylate < 0.3 mg/dL (3-10)
[2020-12-03] MEDS: piperacillin-tazobactam 3.375 GM in sodium chloride 0.9% (plus) 50 ML IV (20:41)
--- NOTE | 2020-12-03 20:47 | ECG_ITS ---
[facility] Test Date: 2020-12-03 Pat Name: Troy Goode Department: Room: Gender: Male Learning Engineer: : 1960 Requested By: Priscilla Wolfe Order Number: [id number] Rossy MD: Elke Davila M.D. Measurements Intervals [place] Rate: 67 P: 69 [place]: 230 QRS: 4 QRSD: 130 T: 56 QT: 452 QTc: 478 Interpretive Statements SINUS RHYTHM WITH FIRST DEGREE AV BLOCK RIGHT BUNDLE BRANCH BLOCK [120+ ms QRS DURATION, UPRIGHT V1, 40+ ms S IN I/aVL/V4/V5/V6] Compared to ECG 11/12/2019 17:33:33 First degree AV block now present Right bundle-branch block now present Left-axis deviation no longer present Incomplete right bundle-branch block no longer present Electronically Signed On 12-04-2020 19:34:42 WINDLACE MACHINE OPERATOR by Elke Davila M.D. [id number]
[2020-12-03 20:48] LABS: Add Urine Microscopic? YES; Bilirubin Urine Neg (Negative); Blood Urine 3+ (Negative); Glucose Urine UA Norm (Normal); Ketones Urine Negative (Negative); Leukocyte Esterase Urine Negative (Negative); Nitrate Urine Negative (Negative); Protein Urine Neg (Negative); Specific Gravity, Urine 1.025 (1.005-1.030); Urine Appearance Clear (CLEAR); Urine Color Yellow (Yellow); Urobilinogen Urine Norm (Negative); pH Urine 5 (5-7)
[2020-12-03 20:58] LABS: Amphetamines Screen Urine Negative (Negative); Barbiturates Screen Urine Negative (Negative); Benzodiazepines Screen Urine Negative (Negative); Cocaine Screen Urine Negative (Negative); Opiate Screen Urine Positive (Negative); PCP Screen Urine Negative (Negative); THC Screen Urine Negative (Negative)
[2020-12-03 21:02] LABS: Amorphous Sediment Urine 3+ /hpf; Bacteria Urine 1+ /hpf; Hyaline Casts Urine 15-25 /lpf; RBC Urine 0-4 /hpf (0-2); Squamous Epithelial Cell Urine 0-4 /hpf (0-5); WBC Urine 0-4 /hpf (0-5)
[2020-12-03 21:03] LABS: Add Urine Culture? No
[2020-12-03 21:13] LABS: ABG PCO2 58.2 mmHg (35-45); ABG PH Result 7.24 (7.35-7.45); Arterial Blood Gas Hematocrit 42.7 % (42-52); Base Excess ABG -3.8 mmol/L (-2.0-2.0); Blood Gas Allen Test Pos; Blood Gas Sample Site Radial, left; Blood Gas Sample Type Arterial; HCO3 ABG 24.7 mmol/L (22-26); Oxygen Device VENT
[2020-12-03] MEDS: vancomycin 1,000 MG in sodium chloride 0.9% 250 ML 250 MG IV (21:23)
[2020-12-03 21:41] LABS: Red Blood Cell CSF 0 10^3/uL (0-0); White Blood Cell CSF 0 /uL (0-5)
[2020-12-03] MEDS: sodium chloride 0.9% 1,000 ML 150 ML IV (21:59)
[2020-12-03 22:01] LABS: Appearance CSF CLEAR (CLEAR); Color CSF COLORLESS (COLORLESS)
[2020-12-03 23:01] LABS: Lactic Sepsis W/Reflex 1.8 mmol/L (0.5-2.2)
[2020-12-03 23:03] LABS: Troponin 5 2HR 79.22 ng/L (0-15)
--- NOTE | 2020-12-03 23:05 | PC.NURSE ---
ICU Arrival: Patient arrived to ICU 10 via gurney at 2305, and was accompanied by ER staff X2, and RT. Patient was intubated, and RT bagging pt until transfer to ICU bed was completed. Pt was transferred to ICU bed with help of nursing staff X5 without incident. RT then reinitiated vent. SPO2 100% at time of arrival/transfer. Propofol titrations made based on sedation needs. See MAR flowsheet. No belongings brought by ED. Pt bilateral hands and feet noted to have numerous incidents of what appeared to be frostbite. MD Star at bedside to document her findings. See Wound Assessment. Pt on bare hugger warmer for temp control and hypothermia protocol. RN and RT remain at bedside with pt.
[2020-12-03 23:07] LABS: Troponin 5 2HR Delta 13.22 ABS# (0-10)
[2020-12-03 23:18] LABS: Glucose Point of Care 162 mg/dL (70-110)
[2020-12-03] MEDS: sodium chloride 0.9% 1,000 ML 100 ML IV (23:52)
--- NOTE | 2020-12-03 23:55 | P.HP_ITS ---
Providers/Chief Complaint Admitting Physician: Sally Graves MD Primary Care Provider: Madeline Shields DO Chief Complaint: AMS/ LETHARGIC History of Present Illness Troy Goode is a 60 year old male who was found by today lying outside at the door of his home. He was confused and agitated. Information I have is obtained from the emergency room records. I tried to reach the to get more details but there was no answer. Recently tried again and left a voicemail. From what I know it is not known how long he was outside. I do not have the last time seen. Nursing notes indicate that the came home and found him lying in the back doorway of the house, half in and half out. I do not have the specifics as to what end was out. He was altered, nonverbal and not following commands. He was uncooperative and later became agitated. He cut his hands whe n he remove the floor vent. EMS arrived and core temperature was 89 or 90. Blood sugar was 313. He received 2 mg of Ativan per EMS as he was combative. Normal saline was started. He did receive 0.5 of Narcan by EMS as well for later drop in respiratory rate to 6. Respiratory rate improved. On arrival here at 1838 core temperature was 90.7. He remained confused and minimally responsive. Work-up was done as outlined. He remained combative and was ultimately intubated for airway protection and to allow appropriate care. He received active warming with heated saline as well as external warming with kayla hugger. He was maintaining blood pressures and had no evidence of arrhythmias nor significant indicators of frostbite while in the emergency room. On arrival to the ICU he was hypotensive. Additional fluids were initiated. Core temperature was up to 97 via esophageal temperature probe. He began to have bradycardia arrhythmias. Dopamine was initiated in addition to fluids. Central venous line was also placed by me in the right groin. Examination upon arrival to the ICU indicated some cyanosis to distal toes bilaterally most significant at the right great toe. Bilateral hands with some scattered bulla that appear to have old blood. Abrasions were noted to hands particularly on the left. Conferred with emergency room physician and abnormalities noted on both hands and feet were not noted when patient was in the emergency room. He had been noted to have significant leukocytosis and an elevated lactic acid in the emergency room and received vancomycin and Zosyn empirically. A lumbar puncture was performed in the emergency room given the new onset encephalopathy. Results showed unremarkable CSF. Review of Systems General: Reports: ROS unobtainable due to endotracheal tube and ROS unobtainable due to mental status Medications/Allergies Home Medications Medication Instructions Recorded Confirmed Last Taken Type ferrous sulfate 324 mg (65 mg 324 mg PO DAILY tab 10/23/19 12/03/20 12/02/20 History iron) tablet,delayed release cholecalciferol (vitamin D3) 1,250 5,000 unit PO DAILY cap 11/06/19 12/03/20 12/02/20 History mcg (50,000 unit) capsule guaifenesin 600 mg tablet, 600 mg PO Q12H PRN 11/12/19 12/03/20 Unknown History extended release 12 hr ipratropium-albuterol 3 ml INHALATION Q6H PRN #15 ml 11/18/19 12/03/20 Unknown Rx erythromycin 5 mg/gram (0.5 %) eye 1 applic OPHTHALMIC (EYE) QDAY #1 11/20/19 12/03/20 12/02/20 Rx ointment (3.5 gram tube) gm blood sugar diagnostic #50 each 12/05/19 12/03/20 Unknown Rx pen needle, diabetic 29 gauge x #50 each 12/22/19 12/03/20 Unknown Rx 1/2 albuterol sulfate 90 mcg/actuation 2 puff INHALATION Q6H PRN #8.5 gm 01/16/20 12/03/20 Unknown Rx aerosol inhaler blood-glucose meter #1 each 01/19/20 12/03/20 Unknown Rx blood sugar diagnostic #100 each 01/28/20 12/03/20 Unknown Rx azelastine 137 mcg (0.1 %) nasal 2 spray INTRANASAL BID 90 Days #30 02/23/20 12/03/20 12/02/20 Rx spray aerosol ml tamsulosin 0.4 mg capsule 0.4 mg PO BID #60 cap 03/19/20 12/03/20 12/02/20 Rx SONIA hose #1 ea 04/14/20 12/03/20 Unknown Rx albuterol sulfate 2.5 mg INHALATION Q4H PRN 05/25/20 12/03/20 Unknown History atenolol 50 mg tablet 50 mg PO DAILY #90 tab 08/11/20 12/03/20 Unknown Rx ondansetron HCl 4 mg tablet 4 mg PO Q6H #12 tab 08/13/20 12/03/20 12/02/20 Rx umeclidinium 62.5 mcg-vilanterol 1 inh INHALATION Q24H #60 each 10/12/20 12/03/20 12/02/20 Rx 25 mcg/actuation powdr for inhalation duloxetine 60 mg capsule,delayed 60 mg PO BID 30 Days #60 cap 10/19/20 12/03/20 12/02/20 Rx release meloxicam 15 mg tablet 15 mg PO DAILY #90 tab 10/19/20 12/03/20 12/02/20 Rx morphine 15 mg immediate release 15 mg PO .FIVES TIMES DAILY PRN 30 10/19/20 12/03/20 Unknown Rx tablet Days #150 tab morphine 60 mg tablet,extended 60 mg PO Q8H 30 Days #90 tab 10/19/20 12/03/20 Unknown Rx release pregabalin 150 mg capsule 150 mg PO QID 30 Days #120 cap 10/19/20 12/03/20 12/02/20 Rx dulaglutide 1.5 mg/0.5 mL 1.5 mg SUBCUT .ONCE WEEKLY #2 ml 11/18/20 12/03/20 Unknown Rx subcutaneous pen injector lisinopril 10 mg tablet 10 mg PO DAILY #90 tab 11/22/20 12/03/20 12/02/20 Rx Lasix 20 mg PO DAILY 12/03/20 12/03/20 12/02/20 History atorvastatin 40 mg PO DAILY 12/03/20 12/03/20 12/02/20 History baclofen 20 mg PO QID 12/03/20 12/03/20 12/02/20 History glipizide 5 mg PO DAILY 12/03/20 12/03/20 12/02/20 History trazodone 200 mg PO DAILY 12/03/20 12/03/20 12/02/20 History verapamil 240 mg PO DAILY 12/03/20 12/03/20 12/02/20 History Allergies Allergy/AdvReac Type Severity Reaction Status Date / Time amitriptyline Allergy ALGY-Conges Verified 11/08/20 15:03 sonia metformin Allergy ADR-Diarrhe Verified 11/08/20 15:03 a temazepam Allergy ALGY-Conges Verified 11/08/20 15:03 sonia PFSH Acute PFSH: Medical History (Updated 12/04/20 @ 02:25 by Sally Graves MD) Allergic rhinosinusitis Chronic neck and back pain Controlled type 2 diabetes mellitus, without long-term current use of insulin COPD, moderate Dyslipidemia Encounter for long-term opiate analgesic use Enrolled in chronic care management Essential (primary) hypertension Gastritis Heart failure with preserved ejection fraction Echo 03/2020 EF 55%, Grade II diastolic dysfunction Hypothyroidism, unspecified Incomplete bladder emptying Iron deficiency anemia Neurogenic bladder Primary osteoarthritis of left knee Primary osteoarthritis of right knee Tear of medial collateral ligament of left knee Vitamin D deficiency Surgical History H/O circumcision H/O colonoscopy 11/20/2016 H/O esophagogastroduodenoscopy 2014 H/O knee surgery H/O oral surgery H/O shoulder surgery left to remove mass History of back surgery Family History Father Diabetes Stroke Bleeding disorder Mother Diabetes Cancer SKIN Other CAD (coronary artery disease) Lung disease Denies family history of Anesthesia complication Social History (Updated 12/04/20 @ 02:02 by Sally Graves MD) Smoking and tobacco status: current every day smoker cigarettes Packs smoked per day: 0.5 Years cigarettes smoked: 45 Quit status (tobacco): has tried quititng Smoking risk assessment/counseling performed?: Yes Alcohol intake: never Lives independently: Yes Household members: spouse Marital status: Current occupational status: disabled Current gender identity: Male Vitals/I&O/Wt Last Vital Signs Temp 96.7 F L 12/03/20 22:48 Pulse 71 12/03/20 23:05 Resp 16 12/03/20 23:36 BP 97/57 12/03/20 23:05 Pulse Ox 98 12/03/20 23:05 12/03/20 12/03/20 12/04/20 14:59 22:59 06:59 Intake Total 50 / 50 Balance 50 / 50 Weight last 48 hrs Weight 127.006 kg Physical Exam Const: OTHER: Intubated, sedated HENMT: OTHER: Right upper eyelid swelling, dried blood noted to left cheek and left ear, abrasion to the left side of forehead 1 cm, abrasion to left cheek covered by tube simental and not fully visualized Eye: OTHER: Pupils are equally round and reactive to light, minimal injection, no gross scleral hemorrhage Neck/C-Spine: OTHER: Supple Resp: OTHER: Clear to auscultation bilaterally on current ventilator settings Cardio: OTHER: Initially regular rate and rhythm but frequently with bradycardic episodes GI: OTHER: Abdomen soft, nontender, hypoactive bowel sounds, nondistended : OTHER: Approximately quarter sized darkened warty appearing lesion below the glans on the dorsal surface, no penile discoloration otherwise, normal- appearing scrotum Extremity: NARRATIVE EXTREMITY EXAM: Patient with areas of cyanosis predominantly noted to right great toe extending to the distal tarsal bones. Also with cyanosis of distal phalnx of right 2nd toe and to lesser degree 3rd toe. On left foot, the 1st, 3rd and 4th distal phalanx is cyanotic to lesser degree than right toes. Both hands with old appearing hemorrhagic bulla, a few on right hand look newer. Abrasion to left hand 3rd and 4th phalanx. Distal extremities are warming to touch except in the more cyanotic areas of feet. DP is weak but palpable bilaterally. Neuro: OTHER: Toes equivacal, strength grossly equal in upper and lower extremites, but he is not cooperative with neuro exam otherwise, no tremors noted, no tonic clonic movements, no posturing appreciated Skin: NARRATIVE SKIN EXAM: OTHER: Urinary Catheter Management^: Luna: Cath Placed During This Visit: yes Reason for Continuing Indwelling Catheter: Required Immobilization for Trauma or Surgery or Anesthesia Urinary Catheter Date of Insertion: 12/03/20 Urinary Catheter Time of Insertion: 19:58 Data : 12/04/20 04:20 12/04/20 04:20 Other Labs: Laboratory Last Values WBC 29.7 10^3/uL (4.0-10.0) H 12/03/20 18:55 RBC 4.92 10^6/uL (4.1-5.3) 12/03/20 18:55 Hgb 15.3 g/dL (11.7-16.6) 12/03/20 18:55 Hct 47.1 % (42.0-52.0) 12/03/20 18:55 MCV 95.7 fL (80-94) H 12/03/20 18:55 MCH 31.1 pg (28.0-34.0) 12/03/20 18:55 MCHC 32.5 g/dL (30.0-36.0) 12/03/20 18:55 RDW 13.9 % (12.1-15.1) 12/03/20 18:55 Plt Count 282 10^3/cmm (130-400) 12/03/20 18:55 MPV 10.6 fL (7.4-10.4) H 12/03/20 18:55 Neut % (Auto) 71.9 % 12/03/20 18:55 Lymph % (Auto) 20.6 % 12/03/20 18:55 [place] % (Auto) 6.1 % 12/03/20 18:55 Eos % (Auto) 0.1 % 12/03/20 18:55 Baso % (Auto) 0.3 % 12/03/20 18:55 Neut # (Auto) 21.29 10^3/uL (1.8-7.7) H 12/03/20 18:55 Lymph # (Auto) 6.1 10^3/uL (0.8-4.8) H 12/03/20 18:55 [place] # (Auto) 1.8 10^3/uL (0.2-0.9) H 12/03/20 18:55 Eos # (Auto) 0.0 10^3/uL (0.0-0.8) 12/03/20 18:55 Baso # (Auto) 0.1 10^3/uL (0.0-0.1) 12/03/20 18:55 Nucleated RBC % (auto) 0 % 12/03/20 18: Nucleated RBCs # 0.0 /100WBC 12/03/20 18:55 PT 14.50 SECONDS (12.1-14.9) 12/03/20 18:55 INR 1.09 (0.8-1.2) 12/03/20 18:55 Specimen Type Arterial 12/04/20 00:35 Sample Site Radial, left 12/04/20 00:35 ABG pH 7.30 (7.35-7.45) L 12/04/20 00:35 ABG pCO2 51.1 mmHg (35-45) H 12/04/20 00:35 ABG pO2 189.0 mmHg (80.0-100.0) H 12/04/20 00:35 ABG HCO3 24.8 mmol/L (22-26) 12/04/20 00:35 ABG O2 Saturation 99.6 12/04/20 00:35 ABG Base Excess -2.3 mmol/L (-2.0-2.0) L 12/04/20 00:35 Jonathan Test Pos 12/04/20 00:35 A-a O2 Gradient 23.1 mmHg (5-10) H 12/04/20 00:35 Hematocrit 43.3 % (42-52) 12/04/20 00:35 Hgb O2 Saturation 97.8 % (95-100) 12/04/20 00:35 Carboxyhemoglobin 0.7 %THgb (0.4-20.1) 12/04/20 00:35 Methemoglobin 1.1 % (0.4-1.5) 12/04/20 00:35 Total Hemoglobin 14.1 g/dL (14-18) 12/04/20 00:35 Sodium 135.0 mmol/L (131-143) 12/04/20 00:35 Potassium 4.0 mmol/L (3.5-5.0) 12/04/20 00:35 Glucose 148.0 mg/dL (70-115) H 12/04/20 00:35 Ionized Calcium 1.1 mmol/L (1.1-1.4) 12/04/20 00:35 O2 Delivery Device Vent 12/04/20 00:35 Mechanical Rate 16.0 12/04/20 00:35 FiO2 60.0 % 12/04/20 00:35 Tidal Volume 0.50 12/04/20 00:35 PEEP 8.0 cmH20 12/04/20 00:35 Gantry Crane Operator ID Jlg 12/04/20 00:35 Sodium 135 mmol/L (136-145) L 12/03/20 18:55 Potassium 4.0 mmol/L (3.5-5.1) 12/03/20 18:55 Chloride 90 mmol/L (98-107) L 12/03/20 18:55 Carbon Dioxide 16 mmol/L (22-29) L 12/03/20 18:55 Anion Gap 33.0 (5-19) H 12/03/20 18:55 BUN 28 mg/dL (6-20) H 12/03/20 18:55 Creatinine 2.1 mg/dL (0.7-1.2) H 12/03/20 18:55 GFR Calculation 32.6 mL/min (90-130) L 12/03/20 18:55 Glucose 250 mg/dL (65-115) H 12/03/20 18:55 POC Glucose 162 mg/dL (70-110) H 12/03/20 23:14 Calculated Osmolality 294 mOsm/kg (285-295) 12/03/20 18:55 Lactic Acid 1.8 mmol/L (0.5-2.2) 12/03/20 22:22 Lactate 13.3 mmol/L (0.5-2.2) H* 12/03/20 18:55 Calcium 9.0 mg/dL (8.5-10.5) 12/03/20 18:55 Magnesium 2.9 mg/dL (1.7-2.3) H 12/03/20 18:55 Total Bilirubin 0.3 mg/dL (0.15-1.2) 12/03/20 18:55 AST 40 U/L (0-40) 12/03/20 18:55 ALT 47 U/L (0-41) H 12/03/20 18:55 Alkaline Phosphatase 176 IU/L (40-130) H 12/03/20 18:55 Troponin T Baseline 66 ng/L (0-15) H 12/03/20 18:55 Troponin T 120 Minute 79.22 ng/L (0-15) H 12/03/20 22:22 Delta Troponin T 13.22 ABS# (0-10) H* 12/03/20 22:22 Total Protein 6.5 g/dL (6.6-8.7) L 12/03/20 18:55 Albumin 4.0 g/dL (3.5-5.2) 12/03/20 18:55 Globulin 2.5 g/dL (1.3-4.6) 12/03/20 18:55 Lipase 53 U/L (13-60) 12/03/20 18:55 TSH 0.59 uIU/mL (0.27-4.20) 12/03/20 18:55 Urine Color Yellow (Yellow) 12/03/20 19:58 Urine Appearance Clear (CLEAR) 12/03/20 19:58 Urine pH 5 (5-7) 12/03/20 19:58 Ur Specific [place] 1.025 (1.005-1.030) 12/03/20 19:58 Urine Protein Neg (Negative) 12/03/20 19:58 Urine Glucose (UA) Norm (Normal) 12/03/20 19:58 Urine Ketones Negative (Negative) 12/03/20 19:58 Urine Blood 3+ (Negative) H 12/03/20 19:58 Urine Nitrate Negative (Negative) 12/03/20 19:58 Urine Bilirubin Neg (Negative) 12/03/20 19:58 Urine Urobilinogen Norm mg/dL (Negative) 12/03/20 19:58 Ur Leukocyte Esterase Negative (Negative) 12/03/20 19:58 Urine RBC 0-4 /hpf (0-2) H 12/03/20 19:58 Urine WBC 0-4 /hpf (0-5) H 12/03/20 19:58 Ur Squamous Epith Cells 0-4 /hpf (0-5) H 12/03/20 19:58 Amorphous Sediment 3+ /hpf 12/03/20 19:58 Urine Bacteria 1+ /hpf (NONE) H 12/03/20 19:58 Hyaline Casts 15-25 /lpf H 12/03/20 19:58 CSF Appearance Clear (CLEAR) 12/03/20 20:40 CSF Color Colorless (COLORLESS) 12/03/20 20:40 CSF WBC 0 /uL (0-5) 12/03/20 20:40 CSF RBC 0 10^3/uL (0-0) 12/03/20 20:40 CSF Mononuclear # Auto 0.000 10^3/uL (50-90) L 12/03/20 20:40 CSF Mononuclear WBCs % Not Reportable 12/03/20 20:40 CSF Polynuclear WBCs # 0.000 10^3/uL (0-10) 12/03/20 20:40 CSF Polynuclear WBCs % Not Reportable 12/03/20 20:40 Salicylates < 0.3 mg/dL (3-10) L 12/03/20 18:55 Urine Opiates Screen Positive ng/mL (Negative) H 12/03/20 19:58 Acetaminophen < 5.0 ug/mL (10-30) L 12/03/20 18:55 Ur Barbiturates Screen Negative ng/mL (Negative) 12/03/20 19:58 Ur Phencyclidine Scrn Negative ng/mL (Negative) 12/03/20 19:58 Ur Amphetamines Screen Negative ng/mL (Negative) 12/03/20 19:58 U Benzodiazepines Scrn Negative ng/mL (Negative) 12/03/20 19:58 Urine Cocaine Screen Negative ng/mL (Negative) 12/03/20 19:58 U Marijuana (THC) Screen Negative ng/mL (Negative) 12/03/20 19:58 Ethyl Alcohol < 10 mg/dL (0-10) 12/03/20 18:55 CXR: Radiologist's impression: FINDINGS: Tubes, catheters and devices: Endotracheal tube in the midtrachea just below the clavicles about 7 cm above evie. NG tube in the stomach but incompletely assessed. Lungs: Mild emphysematous changes of the lungs. No focal lung consolidation. Pleural spaces: Unremarkable. No pleural effusion. No pneumothorax. Heart/Mediastinum: Unremarkable. No cardiomegaly. Bones/joints: Unremarkable. XR/XR chest 1V portable [id number] IMPRESSION: No focal acute pulmonary disease identified. CT Head: Radiologist's impression: FINDINGS: Brain: There is moderate cerebral atrophy. No acute intracranial hemorrhage. No space-occupying intracranial mass. [place] matter and white matter interfaces are preserved. No midline shift of brain. No acute cerebral sulcal effacement. Cerebral ventricles: No ventriculomegaly. Bones/joints: The prominent cystic space in the right posterior calvarial bones stable in appearance from prior. No acute calvarial fracture. Paranasal sinuses: Visualized sinuses are unremarkable. No fluid levels. Mastoid air cells: Visualized mastoid air cells are well aerated. Vasculature: Scattered intracranial atherosclerosis. Soft tissues: Unremarkable. CT/CT head wo con* [id number] IMPRESSION: 1. Negative for acute intracranial abnormality. 2. No change in the brain from comparison on 07/22/2018. A&P Assessment and plan (1) Acute encephalopathy: Initial event leading to him being found down is not clear based on limited information available. Differential includes acute cardiac event such as AMI or arrhythmia, cerebrovascular event, respiratory failure related to chronic lung disease, pulmonary embolism, seizure, accidental fall with closed head injury, medication effect, infection, metabolic derangement, ingestion among others. Persistent encephalaopathy multifactorial secondary to unclear initial event and subsequent development of hypothermia, consistent presently with toxic-metabolic encephalopathy. Status: Acute (2) Hypothermia: Clinically significant with core temperature initially 89-90. Initially combative and confused. Was intubated for airway protection to allow appropriate evaluation and treatment. Has had improvement with various warming measures to most recent core temperature of 97. With rewarming has developed hypotension and bradycardia arrhythmias. Thus far has associated leukocytosis, lactic acidosis, acute kidney injury, mild transaminitis and some elevation in troponin levels. Suspect degree of rhabdomyolysis associated as well. Status: Acute Qualifiers: Encounter type: initial encounter Qualified Code(s): T68.XXXA - Hypothermia, initial encounter (3) Cold injuries: Per emergency room physician initial examination showed normal inspection of extremities and skin without rashes or lesions. With rewarming has developed cyanosis of toes and right ear as well as concerning wounds to both hands. Status: Acute Qualifiers: Encounter type: initial encounter Qualified Code(s): T69.9XXA - Effect of reduced temperature, unspecified, initial encounter (4) Acute kidney injury: Patient who does not appear to have known chronic kidney disease Status: Acute (5) Lactic acidosis: Initial lactate 13 Status: Acute (6) Heart failure with preserved ejection fraction: Last EF 55%, chronicaly on lasix and cash inhibitor Status: Chronic Qualifiers: Heart failure chronicity: chronic Qualified Code(s): I50.32 - Chronic diastolic (congestive) heart failure (7) COPD (chronic obstructive pulmonary disease): Also with chronic allergies, on as needed albuterol and anoro ellipta, not known to be acutely exacerbated Status: Chronic Qualifiers: COPD type: emphysema Emphysema type: unspecified Qualified Code(s): J43.9 - Emphysema, unspecified (8) Controlled type 2 diabetes mellitus, without long-term current use of insulin: Chronically on dulaglutide, glipizide; currently with hyperglycemia Status: Chronic Qualifiers: Diabetes mellitus complication status: without complication Qualified Code(s): E11.9 - Type 2 diabetes mellitus without complications (9) Chronic neck and back pain: Chronically on morphine extended release 60mg q8hr, prn immediate release morphine 15mg 5 times per day, baclofen 20mg 4 x per day, lyrica 150mg qid, cymbalta 60mg bid, meloxicam 15mg daily Status: Chronic (10) Hypothyroidism, unspecified: Chronically on levothyroxine Status: Chronic Qualifiers: Hypothyroidism type: acquired Qualified Code(s): E03.9 - Hypothyroidism, unspecified (11) Neurogenic bladder: 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 in , chronically on flomax and does intermittent self cath as needed Status: Chronic (12) Nicotine dependence, cigarettes, with unspecified nicotine-induced disorders: Status: Chronic Additional A&P Information Facial edema including right eyelid erythema and swelling suspicious for closed head injury Dyslipidemia on chronic statin Chronically with hypertension on betablockade in addition to diuretic and cash inhibitro therapy History of iron deficiency anemia on chronic iron replacement Inpatient admission to ICU Additional fluid boluses Continue dopamine Continue esophageal temperature monitoring Check CK level Check PT, PTT and fibrinogen Check lipase Recheck ABG Ventilator protocol Scheduled and as needed breathing treatments Propofol and fentanyl for sedation presently Chronically prescribed up to 180 morphine milliequivalents per day Continue low-dose of baclofen via OG tube to decrease withdrawal from this Sliding scale insulin presently IV Pepcid for GI prophylaxis Lovenox for DVT prophylaxis Collect blood cultures Follow-up pending CSF studies and culture Follow-up pending urine culture For the time being we will continue vancomycin and Zosyn that had already been started in the emergency room Follow-up serial cardiac enzymes Monitor electrolytes and renal function closely Monitor hemoglobin for significant drop with rewarming/hydration Pacer/defibrillator pads have been placed on chest Monitor closely for development of any further arrhythmias Continue central venous line for administration of critical care medications, right femoral area was chosen to minimize stimulation of the atria Luna catheter for close monitoring of urine output, had 1300 mls urine output documented upon arrival from the ER He chronically does intermittent self-catheterization due to neurogenic bladder Monitor feet, hands, ears and facial wounds closely, discussed with nursing I reviewed the case with on-call surgery, also placed a call to on-call orthopedics. Additionally discussed with on-call trauma physician in [place] about potential transfer to burn unit given findings suggestive of severe frostbite. Described abnormalities to both feet, both hands and right ear and offered to send pictures (he declined need). Reviewed clinical course and other events associated with rewarming. I did describe the evidence of some superficial trauma to hands also present, likely from the floor vent described in ER note, making it challenging to discern if hand wounds were from that or exposure. Based on the description I provided, Dr. Jennings said anticoagulation or TPA would not be indicated in this situation. Hopefully with continued stabilization measures he will improve mentally and we will be able to extubate him within the next 24 to 48 hours. When family available need to get a more specific information on the physician that he was found and to help elucidate which wounds may have potential to be frostbite versus trauma Anticipate need to address home medications, particularly pain control related medicines soon Have currently held all home medications with the exception of the baclofen Neosporin to abrasions to knees, left lateral malleolus and hand wounds Supportive care otherwise Full code Procedures Time out/Consent Consent for Procedure: Emergency procedure Additional information: With rewarming patient has had frequent bradycardia arrhythmias as well as hypotension necessitating initiation of pressors. He had peripheral IVs in place but with current clinical condition decision was made to emergently place right femoral central line to facilitate clinical management. Right femoral vein was entered on first attempt without difficulty with good blood return. Seldinger technique was used. Central Line Placement^ Right Femoral: Time out performed: Yes Patient placed on monitor/pulse ox: Yes MD prep: mask, gown and gloves Central line prep: Povidone-Iodine 1%, Chlorhexidine scrub and sterile drapes applied Local anesthesia used: lidocaine 1% Amount of anesthesia used (ml): 3 Ultrasound used for placement: No Central line lumen inserted: triple Post procedure: sutured in place, good blood return, all ports aspirated, flushed, capped and sterile dressing applied Patient tolerated procedure: well Complications: none Attestations Medical Necessity Statement*: Anticipated stay greater than 2 midnights in a patient with multiple issues as noted above. At high risk of rapid clinical decline without aggressive medical intervention. Critical Care Time: The high probability of a clinically significant, sudden or life threatening deterioration of the patient's cardiovascular, integumentary, respiratory, renal system(s) required my full and direct attention, intervention and personal management. The critical care time is as shown. This time is in addition to time spent performing any reported procedures but includes the following: [x] Data and vital sign review and interpretation [x] Patient assessment, examination and intervention [x] Documentation [x] Medication orders and management Critical care time included ICU admission, management of several episodes of significant arrhythmias, management of hypotension, ventilator management as well as ET tube repositioning, temperature monitoring, discussion with multiple doctors and follow-up of multiple labs/studies in addition to performance of physical examination, review of medical records, writing of note and necessary ordering. This time does not include the placement of central venous line also documented in this note. Critical Care Time (min): 95 Coding Level of Care Code Acute Polygraph Technician for g Fwd Diagnoses Acute encephalopathy G93.40 Hypothermia T68.XXXA Encounter type: initial encounter Cold injuries T69.9XXA Encounter type: initial encounter Acute kidney injury N17.9 Lactic acidosis E87.2 Heart failure with preserved ejection fraction I50.32 Heart failure chronicity: chronic COPD (chronic obstructive pulmonary disease) J43.9 COPD type: emphysema Emphysema type: unspecified Controlled type 2 diabetes mellitus, without long-term current use of insulin E11.9 Diabetes mellitus complication status: without complication Chronic neck and back pain M54.2; M54.9; G89.29 Hypothyroidism, unspecified E03.9 Hypothyroidism type: acquired Neurogenic bladder N31.9 Nicotine dependence, cigarettes, with unspecified nicotine-induced disorders F17.219
[2020-12-04] VITALS (294 sets, daily range): BP systolic 69–180; BP diastolic 42–81; PULSE 47–125; RESP 16–24; TEMP 36.5–37.4; O2SAT 90–100
--- NOTE | 2020-12-04 00:05 | PC.NURSE ---
New orders: RN found pt to have continued downward trend blood pressures and notied MD origination specialist of pt staus/update. Star TORO, gave v/o for NS IV infusion, and Levophed per protocol to correct soft blood pressures.
--- NOTE | 2020-12-04 00:23 | ECG_ITS ---
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 Measurements Intervals [place] Rate: 99 P: 76 MA: 211 QRS: -22 QRSD: 113 T: 73 QT: 352 QTc: 454 Interpretive Statements SINUS RHYTHM WITH FIRST DEGREE AV BLOCK BORDERLINE LEFT AXIS DEVIATION [QRS AXIS < -20] INCOMPLETE RIGHT BUNDLE BRANCH BLOCK [90+ ms QRS DURATION, TERMINAL R IN V1/V2, 40+ ms S IN I/aVL/V4/V5/V6] MODERATE ST DEPRESSION [0.05+ mV ST DEPRESSION] Compared to ECG 12/03/2020 21:55:05 Incomplete right bundle-branch block now present ST (T wave) deviation now present Myocardial infarct finding no longer present T-wave abnormality no longer present Possible ischemia no longer present Electronically Signed On 12-04-2020 19:22:04 PULP PILER by Elke Davila M.D. [id number]
[2020-12-04] MEDS: DOPamine drip 400 MG/250 ML PREMIX 47.6 MG IV (00:45)
[2020-12-04 00:51] LABS: ABG PCO2 51.1 mmHg (35-45); Alveolar-Arterial Oxygen Gradi 23.1 mmHg (5-10); Arterial Blood Gas Hematocrit 43.3 % (42-52); Base Excess ABG -2.3 mmol/L (-2.0-2.0); Blood Gas Allen Test Pos; Blood Gas Sample Site Radial, left; Blood Gas Sample Type Arterial; Carboxyhemoglobin 0.7 %THgb (0.4-20.1); HCO3 ABG 24.8 mmol/L (22-26); HGB O2 Sat 97.8 % (95-100); Ionized Calcium Level - ABG 1.1 mmol/L (1.1-1.4); Methemoglobin 1.1 % (0.4-1.5); Oxygen Device VENT; Oxygen Saturation ABG 99.6; Total Hemoglobin 14.1 g/dL (14-18)
[2020-12-04 02:22] LABS: Partial Thromboplastin Time 25.9 SECONDS (23.9-36.7)
[2020-12-04 02:23] LABS: Alanine Aminotransferase 61 U/L (0-41); Albumin Level 3.4 g/dL (3.5-5.2); Alkaline Phosphatase 150 IU/L (40-130); Blood Urea Nitrogen 24 mg/dL (6-20); Calcium 7.6 mg/dL (8.5-10.5); Carbon Dioxide 23 mmol/L (22-29); Chloride 102 mmol/L (98-107); Globulin 2.3 g/dL (1.3-4.6); Glomerular Filtration Rate 62.2 mL/min (90-130); Glucose 171 mg/dL (65-115); Lipase 42 U/L (13-60); Osmolality Calculated 290 mOsm/kg (285-295); Sodium 136 mmol/L (136-145); Total Bilirubin 0.7 mg/dL (0.15-1.2); Total Protein 5.7 g/dL (6.6-8.7)
--- NOTE | 2020-12-04 02:25 | PC.NURSE ---
New orders/Central Line placement: RN found pt to have a sudden decrease in HR, and increasing indication of frostbite complications to feet/hands. MD Star at bedside to assess and also witnessed decrease in HR and frostbite indications. V/O for EKG to be completed, and new orders for a Dopamine gtt per protocol to be initiated. Pt had sudden further increase in HR, and then had a brief moment of Asytole. This RN, Star Cheney MD, and other staff development coordinator rn checked for pulse and placed Dfib pads on pt. RN found Pt to have HR in femoral with palpation. And the decision was made to place a central line. Time out completed. Sterility followed. Triple lumen placed to right femoral. Blood flow assessed/easy flow in each lumen. Pt tolerated procedure well with no other complications.
[2020-12-04 02:28] LABS: Anion Gap 15.3 (5-19); Potassium 4.3 mmol/L (3.5-5.1)
[2020-12-04 02:29] LABS: Aspartate Amino Transferase 53 U/L (0-40)
[2020-12-04 02:41] LABS: Creatine Phosphokinase 2325 U/L (39-308); Fibrinogen 465 mg/dL (174-498)
--- NOTE | 2020-12-04 03:41 | PC.PHAR ---
Pharmacokinetic dosing service Date: 12/04/20 Time: 399 Objective: Patient: Troy Goode Floor: ICU-10 Age: 60 yo Serum creatinine: 1.2 mg/dL Height: 65.0 Inches Weight (kg): 127.006 Diagnosis: Relevant medical/social history: Cultures and sensitivities: Other labs: Assessment: IBW (kg): 61.50 Dosing wt(kg): 87.7 Estimated Creatinine clearance (ml/min): 58.4 CRCL method: Cockcroft and Gault using ibw(default). Drug selected: Vancomycin Loading dose (mg): 0 Vd (liters): 78.9 (factor used: 0.9 L/kg) Anthony (hr-1): 0.053 Half life (hrs): 13.08 Recommended dose: 2000 mg Interval: 18 hrs Infusion time (hrs): 1.5 Predicted peak (mcg/mL): 39.6 Predicted trough (mcg/mL): 16.52 Adjusted body weight was selected for vancomycin dosing. To switch back, select the total body weight option above. Renal function is stable [ ] /unstable [ ] Recommendations: Give Vancomycin 2000 mg q 18 hrs with an expected Cpeak of 39.6 mcg/ml and an expected Ctrough of 16.52 mcg/ml Renal dosing of other antibiotics (review renal dosing of other medications and list guidelines here): Thank you for the consult, will continue to follow. Signature: Kym Baugh [facility]
--- NOTE | 2020-12-04 04:00 | XRR_ITS ---
PROCEDURE INFORMATION: Exam: XR Chest, 1 View Exam date and time: 12/04/2020 3:02 AM Age: 60 years old Clinical indication: Device placement; Ett placement (vent status); Patient HX: Check for ett placement S/P 3 cm adjustment. ; Additional info: Post-intubation TECHNIQUE: Imaging protocol: XR of the chest Views: 1 view. COMPARISON: CR XR chest 1V portable [id number] 12/03/2020 7:39 PM FINDINGS: The heart size is normal. Endotracheal tube is seen with the tip above the evie. A nasogastric tube is seen with the tip in the stomach. The lungs reveal ill-defined haziness in the left base. The right lung and the right costophrenic angle are clear. The left costophrenic angle is not included on this examination. XR/XR chest 1V portable [id number] IMPRESSION: No change.
[2020-12-04] MEDS: piperacillin-tazobactam 3.375 GM in sodium chloride 0.9% (plus) 50 ML IV ×3 (04:19→20:05)
[2020-12-04] MEDS: famotidine 20 mg/2 mL INJ IVP ×2 (04:20→16:32)
[2020-12-04] MEDS: enoxaparin 40 mg/0.4 mL Syringe SUBCUT (04:20)
[2020-12-04 04:42] LABS: Basophils % 0.3 %; Eosinophils # 0.1 10^3/uL (0.0-0.8); Eosinophils % 0.9 %; Hematocrit 41.6 % (42.0-52.0); Hemoglobin 13.8 g/dL (11.7-16.6); Lymphocytes # 3.2 10^3/uL (0.8-4.8); Lymphocytes % 21.8 %; Mean Corpuscular HGB Conc 33.2 g/dL (30.0-36.0); Mean Corpuscular Hemoglobin 30.7 pg (28.0-34.0); Mean Corpuscular Volume 92.4 fL (80-94); Mean Platelet Volume 10.5 fL (7.4-10.4); Monocytes # 1.2 10^3/uL (0.2-0.9); Monocytes % 8.1 %; Neutrophils # 10.08 10^3/uL (1.8-7.7); Neutrophils % 68.4 %; Nucleated Red Blood Cells % 0 %; Platelet Count 188 10^3/cmm (130-400); White Blood Count 14.7 10^3/uL (4.0-10.0)
[2020-12-04 05:15] LABS: Alanine Aminotransferase 59 U/L (0-41); Albumin Level 3.3 g/dL (3.5-5.2); Alkaline Phosphatase 150 IU/L (40-130); Aspartate Amino Transferase 46 U/L (0-40); Blood Urea Nitrogen 22 mg/dL (6-20); Calcium 7.9 mg/dL (8.5-10.5); Carbon Dioxide 24 mmol/L (22-29); Chloride 106 mmol/L (98-107); Globulin 2.3 g/dL (1.3-4.6); Glomerular Filtration Rate 62.2 mL/min (90-130); Glucose 194 mg/dL (65-115); Magnesium 2.3 mg/dL (1.7-2.3); Osmolality Calculated 299 mOsm/kg (285-295); Sodium 140 mmol/L (136-145); Total Bilirubin 0.5 mg/dL (0.15-1.2); Total Protein 5.6 g/dL (6.6-8.7)
[2020-12-04 05:43] LABS: ABG PCO2 51.2 mmHg (35-45); ABG PH Result 7.31 (7.35-7.45); Arterial Blood Gas Hematocrit 43.3 % (42-52); Base Excess ABG -1.4 mmol/L (-2.0-2.0); Blood Gas Sample Site Brachial, right; Blood Gas Sample Type Arterial; Fractionated Inspired Oxygen 0.4 %; HCO3 ABG 25.6 mmol/L (22-26); Oxygen Device VENT; PO2 ABG 85.6 mmHg (80.0-100.0)
[2020-12-04] MEDS: propofol 1,000 MG/100 ML INJ 22.9 MG IV (06:25)
--- NOTE | 2020-12-04 06:39 | PC.NURSE ---
Shift Summary: Pt frostbite to bilateral feet and to right ear has increased in severity. MD Graves notified and came to bedside with each report to assess. Core temp has risen/fluctuated between 98-99 degrees since around 0100 this AM. HR and Rhythm has bounced between Bradycardic, SR, Sinus Tach, and multiple incidents of irregular wide complex rhythm's. MD at bedside to witness. Dopamine gtt was initially started with a v/o to start rate at 10. Sedation meds titrated as indicated. (See MAR flowsheet). Levo paused with starting of dopamine. BP have since normalized after pausing Levo. ET tube was found on Xray needing to be advanced another 2-3cm. MD Star gave v/o for advancement, and RT moved ET as instructed without incident. ET is now 27 @lip. Pt does not tolerate turns or repositioning of head/suctioning of ET tube. This is when pt's rhythm fluctuates out of a SR. Multiple critical lab results relayed to supervisor dehydrogenation throughout shift. Current gtt: Propofol 30mcg Fent 25mcg NS 100mL/hr Dopamine 3mcg Zosyn 12.5mL/hr 3000 u/o VSS Report given to onctoby ortiz RN.
--- NOTE | 2020-12-04 08:07 | PC.NURSE ---
recd. sedated, moved around with suctioning, and when checking for lower ext. pulses.
--- NOTE | 2020-12-04 08:14 | PC.NURSE ---
states he has refused in past. will reassess when off vent.
[2020-12-04] MEDS: ipratropium-albuterol 3 mL Neb INHALATION ×3 (08:41→20:21)
--- NOTE | 2020-12-04 08:42 | USCV_ITS ---
Troy Goode Age: 60 Gender: M : 1960 Exam Date: 12/04/2020 10:51 Ordering Phys: Rico Hernandez MD Technologist: Ruth Solorio Exam Location: [facility] [place] Indication: ON VENT. FROSTBITE BP: 117 / 60 HR: 91 Rhythm: Sinus Technical Quality: Very technically difficult study MEASUREMENTS (Male / Female) Normal Values 2D ECHO LV Diastolic Diameter PLAX 4.3 cm 4.2 - 5.9 / 3.9 - 5.3 cm LV Systolic Diameter PLAX 3.9 cm LV Chamber Size 3.3 cm IVS Diastolic Thickness 1.2 cm 0.6 - 1.0 / 0.6 - 0.9 cm IVS Systolic Thickness 1.4 cm LVPW Diastolic Thickness 1.1 cm 0.6 - 1.0 / 0.6 - 0.9 cm LVPW Systolic Thickness 1.1 cm RV Chamber Size 2.3 cm LVOT Diameter 2.1 cm LV Ejection Fraction 2D Teich 23.8 % LV Ejection Fraction MOD 2C 49.6 % LV Ejection Fraction 2C AL 52.8 % LA Diameter 2.9 cm LA Width 2.9 cm LA Height 3.2 cm RA Width 2.8 cm RA Height 3.7 cm Aorta at Sinotubular Diameter 2.8 cm M-MODE LV Diastolic Diameter MM 4.3 cm 4.2 - 5.9 / 3.9 - 5.3 cm LV Systolic Diameter MM 3.2 cm LV Ejection Fraction MM Teich 51.3 % IVS Diastolic Thickness MM 1.1 cm 0.6 - 1.0 / 0.6 - 0.9 cm IVS Systolic Thickness MM 1.3 cm LVPW Diastolic Thickness MM 1.5 cm 0.6 - 1.0 / 0.6 - 0.9 cm LVPW Systolic Thickness MM 1.8 cm RV Diastolic Diameter MM 1.6 cm Aortic Annulus Diameter 3.3 cm LA Ao Ratio MM 0.9 MV E Point Septal Separation 0.8 cm DOPPLER AV Peak Velocity 137.0 cm/s LVOT Peak Velocity 122.0 cm/s AV Area Cont Eq vti 3.0 cm squared AV Area Cont Eq pk 3.0 cm squared MV Area PHT 5.9 cm squared Mitral E to A Ratio 1.0 MV E' Velocity 39.5 cm/s Mitral E to MV E' Ratio 7.8 Mitral E to LV E' Lateral Ratio 8.0 Mitral E to LV E' Septal Ratio 7.7 TR Peak Velocity 121.8 cm/s TR Peak Gradient 5.9 mmHg TR Mean Velocity 83.1 cm/s TR Mean Gradient 3.3 mmHg TR Velocity Time Integral 22.6 cm TV Peak E Velocity 54.0 cm/s Right Atrial Pressure 15.0 mmHg Pulmonary Artery Systolic Pressu 20.9 mmHg PV Peak Velocity 86.0 cm/s RV Acceleration Time 0.2 s RV Ejection Time 0.3 s RV AcT/ET 0.6 FINDINGS Left Ventricle Normal left ventricular size and systolic function, EF 55% . No regional wall motion abnormalities. Right Ventricle The right ventricle is normal in size and function. Right Atrium The right atrium is normal in size. Left Atrium The left atrium is normal in size. Mitral Valve No gross abnormalities noted Aortic Valve No gross abnormalities noted Tricuspid Valve Trace tricuspid valve regurgitation. Pulmonic Valve No gross abnormalities noted Pericardium Normal pericardium without effusion. Aorta Normal ascending aorta dimension. CONCLUSIONS Normal left ventricular size and systolic function, EF 55% . No regional wall motion abnormalities. No significant stenotic or regurgitant lesions. Normal cardiac chamber sizes. Trace tricuspid valve regurgitation. Estimated pulmonary artery peak systolic pressure of 21 mmHg No pericardial effusion. Dr Elke Davila MD [facility] (Electronically Signed) Final Date: 04 December 2020 16:19 S
--- NOTE | 2020-12-04 08:42 | USCV_ITS ---
Troy Goode Age: 60 Gender: M : 1960 Exam Date: 12/04/2020 09:50 Ordering Phys: Rico Hernandez MD Technologist: Ruth Solorio [place] [facility] [place]ication: FROSTBITE FEET Risk Factors: DM and Smoker Previous Vascular Surgery: states no surg on legs RIGHT LEFT BP: 121.0 / 65.00 BP: / 0 Waveform Velocity (cm/s) Velocity (cm/s) Waveform Triphasic 188.0 Iliac Prox 178.9 Monophasic Triphasic 148.2 Iliac Mid 216.2 Monophasic Biphasic 154.1 Iliac Distal Monophasic Biphasic 152.0 CAR LOT ATTENDANT 111.3 Monophasic Monophasic 124.7 SFA Prox 57.1 Monophasic Monophasic 91.2 SFA Mid 62.1 Monophasic Monophasic 68.8 SFA Dist 64.1 Monophasic Monophasic 61.4 POP 31.9 Monophasic Monophasic 12.2 ROLL TABLE OPERATOR 12.2 Monophasic Monophasic 19.9 DPA 0.4 RENEE FINDINGS RT ROLL TABLE OPERATOR 50 RT DPA 40 LT DPA NO FLOW LT ROLL TABLE OPERATOR VERY MINIMAL FLOW. THE LT DISTAL ILIAC HAS NO FLOW. No flow turbulence in the common femoral and proximal superficial femoral artery on the right side. Low velocity monophasic and continuous waveforms in the left common femoral, superficial femoral and popliteal artery. Extremely low velocity monophasic waveform in the posterior tibial artery CONCLUSIONS 1. 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 Very sluggish flow was noted in the posterior tibial artery with no flow detected in the dorsalis pedis artery. 2. Abnormal resting RENEE of 0.4 on the right side, suggestive of severe obstructive arterial disease, possibly multisegmental involving the femoral and infrapopliteal vessels No similar previous studies are available for comparison Dr Elke Davila MD [facility] (Electronically Signed) Final Date: 04 December 2020 16:33 S
[2020-12-04] MEDS: baclofen 10 mg Tablet OG-TUBE ×4 (09:17→21:23)
[2020-12-04 09:48] LABS: Creatine Phosphokinase 1794 U/L (39-308)
--- NOTE | 2020-12-04 09:57 | PC.CHAP ---
Pastoral Care Encounter/Spiritual Assessment Type of Contact [] Declined menagerie caretaker visit [] Patient/Family/Request visit [] Outpatient visit [] Follow-up visit [] Physician referral [] Code/Alert [XX] Routine visit [] Staff referral [] Actively dying [XX] Patient sleeping [] Family support [] [] Out of room [] Palliative care [] [] Receiving care in room [] Pre-surgical visit [] Trauma [] Long length of stay [XX] ICU visit [] Other: Relational/Emotional Strength [] Patient feels connected with others/family/visitors/staff [] Distress [] Loneliness/isolation [] Abandonment Spirituality of Patient [] Person of Maricel [] Attends Presybeterian of their [place] [] Believes in Prayer [] Reads Bible or Worship materials [] There are Spiritual issues to be addressed Grain Shipper Interventions [] Prayer [] Active listening [] Non-anxious presence [] Spiritual/emotional support [] Crisis/trauma care [] Spiritual counseling [] Bereavement support [] Provided bereavement packet [] Provided Bible/devotional materials [] Provided toy/stuffed animal, coloring book to patient or family member [] Provided Communion [] Anointing/[place] [] Salvation [] Completed spiritual assessment [] Other: Impact on Illness or Injury [] Angry [] Fearful [] Anxious [] Often cries [] Exhaustion [] Unable to work [] Unable to attend caodaism [] Unable to walk/stand [] Unable to read [] Unable to drive [] Unable to eat/drink [] Unable to sleep [] Unable to be with family [] Patient intubated [] Other: Summary Time spent with patient
[2020-12-04] MEDS: docusate sodium 10 mg/mL (5ml) Liq 100 MG PO ×2 (10:31→17:45)
[2020-12-04] MEDS: neomycin-poly-bacitracin oint 28 gm 1 APPLIC TOPICAL ×2 (10:32→17:46)
[2020-12-04 11:31] LABS: Glucose Point of Care 231 mg/dL (70-110)
[2020-12-04 11:55] LABS: Glucose Point of Care 179 mg/dL (70-110)
--- NOTE | 2020-12-04 11:59 | USCV_ITS ---
Troy Goode Age: 60 Gender: M : 1960 Exam Date: 12/04/2020 12:18 Ordering Phys: Rico Hernandez MD Technologist: Greg Lepe [place] [facility] [place]: [place]A Risk Factors: Smoker Previous Vascular Surgery: Right Brachial BP: / Left Brachial BP: / Right Left Velocity (cm/s) Spectral Plaque Velocity (cm/s) Spectral Plaque Syst/Diast Broadening Syst/Diast Broadening 80.50/ 15.40 Prox CCA 73.50 / 10.30 71.70/ 13.20 Hetro Mid CCA 56.40 / 12.00 Hetro 88.20/ 9.90 Hetro Distal CCA 78.60 / 15.40 Hetro 85.40/ 18.80 Hetro Prox ICA 142.00/ 25.00 Hetro 84.60/ 19.70 Mid ICA 142.00/ 31.60 85.40/ 18.80 Distal ICA 126.20/ 26.30 167.80 ECA 148.80 0.97 ICA/CCA 1.81 Antegrade Vertebral Antegrade 29.90/ 4.30 cm/s 23.50/ 6.40 cm/s Subclavian 149.1 155.4 0 0 FINDINGS Moderate heterogeneous plaques at the left bifurcation and proximal internal carotid arteries Mild to moderate heterogeneous plaques in the right bifurcation and internal carotid artery. Intimal thickening and minimal plaques in the common carotid arteries bilaterally. Antegrade flow in the vertebral arteries bilaterally. CONCLUSIONS Moderate heterogeneous plaques at the left bifurcation and proximal internal carotid arteries with elevated Doppler velocities suggestive of 50 to 69% stenosis Mild to moderate heterogeneous plaques in the right bifurcation and internal carotid artery with Doppler features suggestive of less than 50% gnosis Normal Doppler velocities in the vertebral, subclavian and external carotid arteries No similar previous studies available for comparison Dr Elke Davila MD [facility] (Electronically Signed) Final Date: 04 December 2020 17:00 S
--- NOTE | 2020-12-04 12:04 | USR_ITS ---
PROCEDURE INFORMATION: Exam: US Abdomen, Limited; Right Upper Quadrant Exam date and time: 12/04/2020 1:39 PM Age: 60 years old Clinical indication: Abdominal tenderness; Additional info: Ciciminyfn TECHNIQUE: Imaging protocol: US abdomen. Real time ultrasound with image documentation. Limited exam focused on the right upper quadrant. COMPARISON: US Renal Kidney Structu* [id number] 02/13/2019 8:24 AM FINDINGS: Liver: Normal. No masses. Gallbladder: Echogenic cholelithiasis layering dependently. No pericholecystic fluid. There is no gallbladder wall thickening. Common bile duct: Normal. No stones. No dilation. Pancreas: Visualized pancreas is unremarkable. Right kidney: Moderate atrophy of the renal cortex. No mass. No hydronephrosis. Aorta: Proximal abdominal aorta has normal diameter. Portal venous: Portal vein patent with normal direction of blood flow. US/US liver [id number] IMPRESSION: 1. No acute findings. 2. Cholelithiasis.
--- NOTE | 2020-12-04 12:05 | P.PN_ITS ---
Subjective Subjective: Interval history: This morning, I was able to speak to patient's over the phone, she tells me that for the last few weeks, patient has been complaining of more back pain and back spasms, he is on morphine, and baclofen, which have been minimally helping, she denies he has been taking more medication than prescribed, she tells me that overnight and into early Sunday morning, patient had a restless night, would would be awakened multiple times due to back spasms, so he would get up, go outside to have a smoke, he would go to the [employer], patient's tells me that Sunday morning she left for work at around 10 AM, he was sleeping, she normally comes back to check up on him around noon or so, but it was quite icy out, so she came back late in the evening, and she found her on the floor, in the [employer] door, half of his body was inside, his head, his arms on the inside, and his legs were outside, he was quite confused, try to crawl inside, but she was able to help him's get indoors, help him into a chair, he was acting confused, she says she went to call 911, he kept saying no, she try to give him a peanut butter jelly sandwich, but he would not eat, his confusions worsen, she denies any slurring of speech, no facial droop, no particular weakness, just the confusion, which was unusual for him, so she called 911, he does have significant abrasions on his hands, this was from removing a grate, reason is unclear, no cad history, has family history of stroke, no history of drug overdose, it is not exactly clear what has transpired to lead to these events Vitals/I&O/Wt Last Vital Signs Temp 99.0 F 12/04/20 06:10 Pulse 82 12/04/20 08:45 Resp 18 12/04/20 10:32 BP 145/71 12/04/20 08:20 Pulse Ox 98 12/04/20 08:42 12/03/20 12/04/20 12/04/20 22:59 06:59 14:59 Intake Total 390.132 / 390.132 87.755 / 87.755 Output Total 2550 / 2550 Balance -2159.868 / -2159.8 87.755 / 87.755 Weight last 48 hrs Weight 93.621 kg Weight 127.006 kg Physical Exam Narrative: EXAM NARRATIVE: Intubated, sedated on the ventilator Const: COMMON NORMALS: no acute distress HENMT: COMMON NORMALS: normocephalic HEAD & SCALP: normocephalic and nav deondre EXTERNAL EAR: Yes external ear abnormal OTHER: Right ear is swollen, no discoloration, is flushed, some abrasion Left ear is also swollen, no discoloration, slightly flushed, some abrasion Eye: COMMON NORMALS: Equal, round and reactive pupils present PUPIL: Yes Equal, round and reactive pupils present OTHER: Right periorbital edema Neck/C-Spine: COMMON NORMALS: no lymphadenopathy and no JVD Lymph: LYMPHATIC: no lymphadenopathy noted Chest: COMMONS NORMALS: normal inspection of the chest Resp: COMMON NORMALS: normal respiratory effort, No retractions, No use of accessory muscles and clear to auscultation bilaterally AUSCULTATION: clear to auscultation bilaterally Cardio: COMMON NORMALS: no JVD, regular rate, regular rhythm, S1 normal heart sound present and S2 normal heart sound present RATE: regular rate RHYTHM: regular rhythm HEART SOUNDS: S1 normal heart sound present and S2 normal heart sound present GI: COMMON NORMALS: Normal to inspection, nondistended, normoactive bowel sounds present, Soft to palpation, non-tender and No hepatosplenomegaly present PALPATION: Yes Soft to palpation and Yes No hepatosplenomegaly present Extremity: COMMON NORMALS: capillary refill normal and no pedal edema NARRATIVE EXTREMITY EXAM: Right lower extremity, first 3 digits have a bluish dark discoloration, indicating frostbite injury Left lower extremity, first 2 does have a bluish dark discoloration, indicating frostbite injury Bilateral shins, have have abrasions, bullae, Neuro: OTHER: Intubated, sedated on the ventilator Urinary Catheter Management^: Luna: Cath Placed During This Visit: yes Reason for Continuing Indwelling Catheter: Accurate Measurement of Urinary Output in Critically Ill Patients Urinary Catheter Date of Insertion: 12/03/20 Urinary Catheter Time of Insertion: 19:58 Data : 12/04/20 04:20 12/04/20 04:20 Micro: Microbiology 12/03/20 20:40 Gram Stain - Final Cerebrospinal Fluid 12/04/20 01:49 Blood Culture - Preliminary Blood SPECIMEN COLLECTED 12/04/20 01:42 Blood Culture - Preliminary Blood SPECIMEN COLLECTED A&P Assessment and plan (1) Acute respiratory failure: -Intubated due to combativeness, inability to protect airway -ABG shows primary respiratory acidosis, with secondary metabolic acidosis -Lactic acid initially was 13.3, today is 1.8, will repeat -Adjust ventilator settings, PCO2 is elevated at 51 -Propofol, fentanyl for sedation -Minimize PEEP, minimize FiO2 -Daily spontaneous breathing trials Status: Acute (2) Acute encephalopathy: -Inciting event is not clear? -According to ER notes patient was quite agitated on admission, quite combative, became hypoxic after Ativan, was given Narcan, still quite confused in the emergency room, it did not exactly clear from the ER note that he was in respiratory distress resulting in intubation, sounds more like he was combative and confused and he was intubated to protect his airway -Lumbar puncture performed in the emergency room is quite lackluster -Chest x-ray is unremarkable for focal pneumonia -UA no indication of UTI -Toxicology screen was positive for opiates, ethanol less than 10 -WBC on admission 29.7, neutrophilic -TSH within normal limits -Possible cardiac event, patient's troponins are elevated, positive delta, no cardiac history, did have bradycardia arrhythmias in the ICU, however elevated troponins and bradycardia arrhythmias could be related to hypothermia -Possible neurologic event, CT of the head was negative for intracranial bleed, does have a family history of strokes, will do a carotid artery ultrasound, hold off on a CT angiogram until more stable -Possible opiate overdose, patient's adamantly denies him overusing his medications, he uses his morphine and baclofen as prescribed, but has been complaining of much more back pain and back spasms recently -Possible respiratory failure with chronic lung disease is another etiology, however no wheezing on exam, did not have any respiratory distress on admission, was quite agitated -Pulmonary emboli is another possibility -Possible fall, slip, with cold injury -Medication effect, metabolic derangements or other possibility PLAN: -Cardiac echocardiogram ordered -Carotid artery ultrasound ordered -EEG ordered -Neurochecks -Telemetry monitoring Status: Acute (3) Hypothermia: -Core temperature 89-90 on admission -Status post multiple rewarming methods, now core temperature in the 98 -He did develop hypothermia, bradycardia arrhythmias with rewarming -Has had leukocytosis, lactic acidosis, BHANU, transaminitis, elevated troponins, rhabdo Plan: -Continue to monitor core temperature -Continue to monitor for bradycardia arrhythmia -Monitor electrolytes, CPK, monitor urine output -Continue IV fluids -Daily skin exams Status: Acute Qualifiers: Encounter type: initial encounter Qualified Code(s): T68.XXXA - Hyp othermia, initial encounter (4) Cold injuries: -Has developed on bilateral lower extremity, right first 3 digits, left first 2 digits -Bilateral knee has Bullae -Also bilateral ears have some indication of frostbite injury -Currently on broad-spectrum antibiotics vancomycin and Zosyn -We will need to perform routine daily skin exams -We will eventually need to discuss with general surgery for debridement if required -The case was discussed with the burn center in [place] by Dr. Graves, they did not recommend any thrombolysis Status: Acute Qualifiers: Encounter type: initial encounter Qualified Code(s): T69.9XXA - Effect of reduced temperature, unspecified, initial encounter (5) Acute kidney injury: Likely secondary to rhabdomyolysis Creatinine currently 1.2 Status: Acute (6) Lactic acidosis: Initial lactate 13, now 1.8 Status: Acute (7) Heart failure with preserved ejection fraction: Last EF 55%, chronicaly on lasix and cash inhibitor Status: Chronic Qualifiers: Heart failure chronicity: chronic Qualified Code(s): I50.32 - Chronic diastolic (congestive) heart failure (8) COPD (chronic obstructive pulmonary disease): Also with chronic allergies, on as needed albuterol and anoro ellipta, not known to be acutely exacerbated Status: Chronic Qualifiers: COPD type: emphysema Emphysema type: unspecified Qualified Code(s): J43.9 - Emphysema, unspecified (9) Controlled type 2 diabetes mellitus, without long-term current use of insulin: Chronically on dulaglutide, glipizide; currently with hyperglycemia Continue insulin sliding scale Status: Chronic Qualifiers: Diabetes mellitus complication status: without complication Qualified Code(s): E11.9 - Type 2 diabetes mellitus without complications (10) Chronic neck and back pain: Chronically on morphine extended release 60mg q8hr, prn immediate release morphine 15mg 5 times per day, baclofen 20mg 4 x per day, lyrica 150mg qid, cymbalta 60mg bid, meloxicam 15mg daily -Currently continue baclofen to minimize withdrawal -On fentanyl drip Status: Chronic (11) Hypothyroidism, unspecified: Chronically on levothyroxine Status: Chronic Qualifiers: Hypothyroidism type: acquired Qualified Code(s): E03.9 - Hypothyroidism, unspecified (12) Neurogenic bladder: 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 in , chronically on flomax and does in termittent self cath as needed Status: Chronic (13) Nicotine dependence, cigarettes, with unspecified nicotine-induced disorders: Status: Chronic (14) Rhabdomyolysis: Likely secondary to hypothermia, prolonged exposure, being on the ground for some period of time Status: Acute (15) Transaminitis: Likely secondary to hypothermia, organ dysfunction, but will do a right upper quadrant ultrasound Status: Acute (16) Leukocytosis: Likely second hypothermia, exposure, on broad-spectrum antibiotic therapy, follow cultures Status: Acute (17) Bradycardia: Likely secondary to rapid rewarming, currently on a dopamine drip which will wean off, monitor for arrhythmia events Status: Acute (18) NSTEMI (non-ST elevated myocardial infarction): -6-hour 90.2, delta 24.2 -No known history of CAD, no chest pain complaints as per -Etiology could be type II from hypothermia, rapid rewarming, bradycardia arrhythmia -However cannot rule out underlying cardiac etiology, especially as we do not know if the inciting event Plan; -Continue aspirin 81 mg -Hold statin due to rhabdo -Hold beta-jay due to bradycardia -Continue telemetry monitoring -On therapeutic Lovenox -Cardiac echocardiogram ordered -Based on echocardiogram results, will discuss with cardiology Status: Acute Additional A&P Information Facial edema including right eyelid erythema and swelling suspicious for closed head injury Dyslipidemia on chronic statin Chronically with hypertension on betablockade in addition to diuretic and cash inhibitro therapy History of iron deficiency anemia on chronic iron replacement Sliding scale insulin presently IV Pepcid for GI prophylaxis Lovenox for DVT prophylaxis Chronic Luna for neurogenic bladder He chronically does intermittent self-catheterization due to neurogenic bladder Monitor feet, hands, ears and facial wounds closely, discussed with nursing I reviewed the case with on-call surgery, also placed a call to on-call orthopedics. Additionally discussed with on-call trauma physician in [place] about potential transfer to burn unit given findings suggestive of severe frostbite. Described abnormalities to both feet, both hands and right ear and offered to send pictures (he declined need). Reviewed clinical course and other events associated with rewarming. I did describe the evidence of some superficial trauma to hands also present, likely from the floor vent described in ER note, making it challenging to discern if hand wounds were from that or exposure. Based on the description I provided, Dr. Jennings said anticoagulation or TPA would not be indicated in this situation. Hopefully with continued stabilization measures he will improve mentally and we will be able to extubate him within the next 24 to 48 hours. Anticipate need to address home medications, particularly pain control related medicines soon Have currently held all home medications with the exception of the baclofen Neosporin to abrasions to knees, left lateral malleolus and hand wounds Supportive care otherwise Full code Attestations Medical Necessity Statement*: Patient requires ICU admission, for hypothermia, rapid rewarming, bradycardia arrhythmia, NSTEMI, acute respiratory failure, frostbite injury, critical care time spent over 50 minutes Coding Level of Care Code Acute [employer]per[employer] Operator for [facility] Diagnoses Acute respiratory failure J96.00 Acute encephalopathy G93.40 Hypothermia T68.XXXA Encounter type: initial encounter Cold injuries T69.9XXA Encounter type: initial encounter Acute kidney injury N17.9 Lactic acidosis E87.2 Heart failure with preserved ejection fraction I50.32 Heart failure chronicity: chronic COPD (chronic obstructive pulmonary disease) J43.9 COPD type: emphysema Emphysema type: unspecified Controlled type 2 diabetes mellitus, without long-term current use of insulin E11.9 Diabetes mellitus complication status: without complication Chronic neck and back pain M54.2; M54.9; G89.29 Hypothyroidism, unspecified E03.9 Hypothyroidism type: acquired Neurogenic bladder N31.9 Nicotine dependence, cigarettes, with unspecified nicotine-induced disorders F17.219 Rhabdomyolysis M62.82 Transaminitis R74.01 Leukocytosis D72.829 Bradycardia R00.1 NSTEMI (non-ST elevated myocardial infarction) I21.4
[2020-12-04 13:05] LABS: Ammonia 19 umol/L (16-60)
[2020-12-04 13:23] LABS: Procalcitonin 0.55 ng/mL (0-0.5); Thyroid Stimulating Hormone 0.18 uIU/mL (0.27-4.20)
[2020-12-04 13:41] LABS: Lactate (Lactic Acid level) 1.7 mmol/L (0.5-2.2)
[2020-12-04] MEDS: tetanus-dipt-pertussis 0.5 mL SDV IM (14:08)
[2020-12-04] MEDS: aspirin 81 mg EC Tablet PO ×2 (14:21)
--- NOTE | 2020-12-04 16:12 | PC.NURSE ---
please note from 10am back, history with v/s ect. is gone. moitor in room manuevered and all of it was lost
[2020-12-04] MEDS: sodium chloride 0.9% 1,000 ML 100 ML IV ×2 (16:29→19:00)
[2020-12-04] MEDS: enoxaparin 100 mg/mL Syringe 90 MG SUBCUT (16:33)
[2020-12-04 17:50] LABS: Glucose Point of Care 174 mg/dL (70-110)
[2020-12-04] MEDS: propofol 1,000 MG/100 ML INJ 30.5 MG IV (18:02)
[2020-12-04] MEDS: DOPamine drip 400 MG/250 ML PREMIX 7.1 MG IV (19:14)
[2020-12-04 19:46] LABS: Erythrocyte Sedimentation Rate 7 mm/hr (0-10)
[2020-12-04] MEDS: propofol 1,000 MG/100 ML INJ 26.7 MG IV (21:00)
[2020-12-04 21:27] LABS: Glucose Point of Care 135 mg/dL (70-110)
[2020-12-05] VITALS (215 sets, daily range): BP systolic 83–209; BP diastolic 40–130; PULSE 63–121; RESP 12–20; TEMP 36.2–37.2; O2SAT 81–100
[2020-12-05] MEDS: propofol 1,000 MG/100 ML INJ 26.7 MG IV (00:49)
[2020-12-05 00:50] LABS: Glucose Point of Care 159 mg/dL (70-110)
[2020-12-05] MEDS: ipratropium-albuterol 3 mL Neb INHALATION ×4 (02:32→20:34)
[2020-12-05 02:41] LABS: ABG PCO2 45.6 mmHg (35-45); ABG PH Result 7.37 (7.35-7.45); Arterial Blood Gas Hematocrit 36.9 % (42-52); Base Excess ABG 0.6 mmol/L (-2.0-2.0); Blood Gas Allen Test Pos; Blood Gas Sample Site Radial, right; Blood Gas Sample Type Arterial; HCO3 ABG 26.3 mmol/L (22-26); Oxygen Device VENT; PO2 ABG 69.2 mmHg (80.0-100.0)
[2020-12-05] MEDS: famotidine 20 mg/2 mL INJ IVP ×2 (02:43→14:55)
[2020-12-05] MEDS: enoxaparin 100 mg/mL Syringe 90 MG SUBCUT ×2 (02:43→14:55)
[2020-12-05] MEDS: propofol 1,000 MG/100 ML INJ 30.5 MG IV ×2 (04:20→20:46)
[2020-12-05 04:41] LABS: Basophils # 0.1 10^3/uL (0.0-0.1); Basophils % 0.5 %; Eosinophils # 0.3 10^3/uL (0.0-0.8); Eosinophils % 3.4 %; Hematocrit 34.4 % (42.0-52.0); Hemoglobin 11.1 g/dL (11.7-16.6); Lymphocytes # 2.8 10^3/uL (0.8-4.8); Mean Corpuscular HGB Conc 32.3 g/dL (30.0-36.0); Mean Corpuscular Hemoglobin 31.1 pg (28.0-34.0); Mean Corpuscular Volume 96.4 fL (80-94); Mean Platelet Volume 11.1 fL (7.4-10.4); Monocytes # 1.1 10^3/uL (0.2-0.9); Monocytes % 11.9 %; Neutrophils # 5.23 10^3/uL (1.8-7.7); Neutrophils % 54.8 %; Nucleated Red Blood Cells % 0 %; Platelet Count 159 10^3/cmm (130-400); Red Blood Count 3.57 10^6/uL (4.1-5.3); Red Cell Distribution Width 14.6 % (12.1-15.1); White Blood Count 9.5 10^3/uL (4.0-10.0)
[2020-12-05] MEDS: piperacillin-tazobactam 3.375 GM in sodium chloride 0.9% (plus) 50 ML IV ×3 (04:51→20:10)
[2020-12-05 05:03] LABS: Lactate (Lactic Acid level) 1.4 mmol/L (0.5-2.2)
[2020-12-05 05:15] LABS: NT Pro B Type Natriuretic Pept 58 pg/mL (0-125); Procalcitonin 0.28 ng/mL (0-0.5)
[2020-12-05 05:30] LABS: Alanine Aminotransferase 37 U/L (0-41); Albumin Level 2.7 g/dL (3.5-5.2); Alkaline Phosphatase 111 IU/L (40-130); Anion Gap 9.6 (5-19); Aspartate Amino Transferase 26 U/L (0-40); Blood Urea Nitrogen 11 mg/dL (6-20); C Reactive Protein 80.3 mg/L (0.0-4.9); Calcium 8.2 mg/dL (8.5-10.5); Carbon Dioxide 23 mmol/L (22-29); Chloride 111 mmol/L (98-107); Ferritin 184 ng/mL (30-400); Globulin 1.9 g/dL (1.3-4.6); Glomerular Filtration Rate 99.3 mL/min (90-130); Glucose 152 mg/dL (65-115); Magnesium 2.1 mg/dL (1.7-2.3); Osmolality Calculated 292 mOsm/kg (285-295); Phosphorus 1.9 mg/dL (2.5-4.5); Potassium 3.6 mmol/L (3.5-5.1); Sodium 140 mmol/L (136-145); Total Bilirubin 0.4 mg/dL (0.15-1.2); Total Protein 4.6 g/dL (6.6-8.7); Uric Acid 3.7 mg/dL (3.4-7.0)
[2020-12-05 05:32] LABS: Creatine Phosphokinase 537 U/L (39-308)
[2020-12-05 05:40] LABS: Glucose Point of Care 189 mg/dL (70-110)
--- NOTE | 2020-12-05 06:00 | ECG_ITS ---
[facility] Test Date: 2020-12-05 Pat Name: Troy Goode Department: Room: ICU10 Gender: Male Property Technician: : 1960 Requested By: Rico Hernandez Order Number: [id number] Rossy MD: Elke Davila M.D. Measurements Intervals [place] Rate: 83 P: 82 MS: 200 QRS: 39 QRSD: 121 T: 87 QT: 419 QTc: 494 Interpretive Statements SINUS RHYTHM RIGHT BUNDLE BRANCH BLOCK [120+ ms QRS DURATION, UPRIGHT V1, 40+ ms S IN I/aVL/V4/V5/V6] Compared to ECG 12/04/2020 06:04:10 Right bundle-branch block now present First degree AV block no longer present Incomplete right bundle-branch block no longer present ST (T wave) deviation no longer present Electronically Signed On 12-05-2020 15:24:08 TOP WADDY by Elke Davila M.D. [id number]
--- NOTE | 2020-12-05 06:53 | PC.NURSE ---
Shift Summary: Patient has been able to rest well throughout shift. One incident of anxiety that was tx with PRN PO Xanax. Pt stated she was having increased anxiety from being away from her family. She stated she was having chest pain at one point, but it was during a time of when she was talking about a stressful situation with her on the phone. RN stressed need to try and put phone away and sleep so that she would not have so much anxiety/get the rest that she was needing. Pt was educated on need for smoking cessation as, in efforts to better control COPD dx. Pt has stated that she did not know she had a COPD diagnosis. So, RN explained that this may be more of a Acute exacerbation causing her s/s and currently prescribed antibiotics are being given to better control infection, but that the diagnosis looked to be made during previous hospital admission. SPO2 maintained above 90% throughout evening. A febrile. Lung mitchell, sound coarse/wheezes throughout, especially during exertion. Report given to oncoming dayshift RN. No needs at this time.
--- NOTE | 2020-12-05 07:00 | XRR_ITS ---
PROCEDURE INFORMATION: Exam: XR Chest, 1 View Exam date and time: 12/05/2020 5:40 AM Age: 60 years old Clinical indication: Shortness of breath; Additional info: SOB TECHNIQUE: Imaging protocol: XR of the chest Views: 1 view. COMPARISON: CR (CHEST, ) 12/04/2020 3:01 AM FINDINGS: The thorax is partially obscured by overlying EKG leads. Tubes, catheters and devices: endotracheal and feeding tubes. The endotracheal tube terminates 4.6 cm above the evie. Lungs: COPD , interstitial prominence, and asymmetric left basilar airspace/pleural disease. Heart/Mediastinum: Cardiac silhouette upper limits of normal in size. Bones/joints: osteopenia. XR/XR chest 1V portable [id number] IMPRESSION: COPD , interstitial prominence, and asymmetric left basilar airspace/pleural disease.
--- NOTE | 2020-12-05 07:45 | PC.NURSE ---
Shift Summary: Increased episodes of agitation, and what appeared to be an increase in pain levels noted overnight. Titrations were made based on sedation/pain control needs. (See MAR flowsheet). No fevers. Pt does not respond when called by name, or when asked to complete hand squeezes/or any other movements by request. He does tolerate turns better, and has not had any notable arrhythmias overnight. Dopamine that was infusing at time of shift change yesterday evening, was reported to have been paused, and then was resumed based on sudden decrease in HR by maximinoft RN. This RN was able to titrate dopamine off, and it has since remained off. Increased secretions noted through suctioning of ET tube. called ICU for update overnight. RN answered all questions/gave completed update on current plan of care. 600 dark elva u/o Current gtt; -Propofol 50mcg -Fentanyl 75mcg -IV Fluids 100mL/hr Pt currently resting at this time. Report given to onctoby ortiz RN.
[2020-12-05] MEDS: neomycin-poly-bacitracin oint 28 gm 1 APPLIC TOPICAL ×2 (07:51→18:16)
[2020-12-05] MEDS: docusate sodium 10 mg/mL (5ml) Liq 100 MG PO (07:51)
[2020-12-05] MEDS: baclofen 10 mg Tablet OG-TUBE ×4 (07:51→20:44)
[2020-12-05] MEDS: propofol 1,000 MG/100 ML INJ 38.1 MG IV ×2 (07:54→11:14)
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
[2020-12-05] MEDS: metOLazone 5 MG Tablet 10 MG PO (10:47)
[2020-12-05] MEDS: FUROsemide 10 mg/mL SDV 4mL 40 MG IVP (10:47)
--- NOTE | 2020-12-05 11:18 | P.CONIM_ITS ---
Providers/Reason For Consult Consulting Physican/Specialty*: interventional cardiology Reason for Consult*: Severe peripheral arterial disease Attending Physician: Rico Hernandez MD Primary Care Provider: Madeline Shields DO History of Present Illness History of Present Illness Troy Goode is a 60 year old male past medical history significant for hypertension hyperlipidemia history of peripheral arterial disease diabetes mellitus presented with altered mental status changes hypoxia got intubated for respiratory failure and airway protection. Patient was found outside in the cold temperature, he has bilateral extremity lesions consistent with frostbite. He was warm actively. He was noted to have abnormal cardiac markers could be demand ischemia however cannot rule out significant underlying coronary artery disease. Please note that patient is intubated sedated no one by bedside source of history as by Dr. Lynch and other medical documents with patient underwent RENEE which showed severely depressed 0.4 on the right and chronic occlusion of distal common iliac on the left side. It appeared to me that patient has bilateral severe peripheral arterial disease however at this point he does not have critical limb ischemia both legs are warm but no palpable pulse. We recommend at this point treating her for respiratory failure and careful apathy and to maintain good perfusion with active warming and blood pressure. Once extubated we will reassess him and may suggest peripheral angiogram as an outpatient or before discharge. Review of Systems General: Reports: ROS unobtainable due to endotracheal tube and ROS unobtainable due to mental status Meds/Allergies Home Medications and Allergies Home Medications Medication Instructions Recorded Confirmed Last Taken Type ferrous sulfate 324 mg (65 mg 324 mg PO DAILY tab 10/23/19 12/03/20 12/02/20 History iron) tablet,delayed release cholecalciferol (vitamin D3) 1,250 5,000 unit PO DAILY cap 11/06/19 12/03/20 12/02/20 History mcg (50,000 unit) capsule guaifenesin 600 mg tablet, 600 mg PO Q12H PRN 11/12/19 12/03/20 Unknown History extended release 12 hr ipratropium-albuterol 3 ml INHALATION Q6H PRN #15 ml 11/18/19 12/03/20 Unknown Rx erythromycin 5 mg/gram (0.5 %) eye 1 applic OPHTHALMIC (EYE) QDAY #1 11/20/19 12/03/20 12/02/20 Rx ointment (3.5 gram tube) gm blood sugar diagnostic #50 each 12/05/19 12/03/20 Unknown Rx pen needle, diabetic 29 gauge x #50 each 12/22/19 12/03/20 Unknown Rx 1/2 albuterol sulfate 90 mcg/actuation 2 puff INHALATION Q6H PRN #8.5 gm 01/16/20 12/03/20 Unknown Rx aerosol inhaler blood-glucose meter #1 each 01/19/20 12/03/20 Unknown Rx blood sugar diagnostic #100 each 01/28/20 12/03/20 Unknown Rx azelastine 137 mcg (0.1 %) nasal 2 spray INTRANASAL BID 90 Days #30 02/23/20 12/03/20 12/02/20 Rx spray aerosol ml tamsulosin 0.4 mg capsule 0.4 mg PO BID #60 cap 03/19/20 12/03/20 12/02/20 Rx SONIA hose #1 ea 04/14/20 12/03/20 Unknown Rx albuterol sulfate 2.5 mg INHALATION Q4H PRN 05/25/20 12/03/20 Unknown History atenolol 50 mg tablet 50 mg PO DAILY #90 tab 08/11/20 12/03/20 Unknown Rx ondansetron HCl 4 mg tablet 4 mg PO Q6H #12 tab 08/13/20 12/03/20 12/02/20 Rx umeclidinium 62.5 mcg-vilanterol 1 inh INHALATION Q24H #60 each 10/12/20 12/03/20 12/02/20 Rx 25 mcg/actuation powdr for inhalation duloxetine 60 mg capsule,delayed 60 mg PO BID 30 Days #60 cap 10/19/20 12/03/20 12/02/20 Rx release meloxicam 15 mg tablet 15 mg PO DAILY #90 tab 10/19/20 12/03/20 12/02/20 Rx morphine 15 mg immediate release 15 mg PO .FIVES TIMES DAILY PRN 30 10/19/20 12/03/20 Unknown Rx tablet Days #150 tab morphine 60 mg tablet,extended 60 mg PO Q8H 30 Days #90 tab 10/19/20 12/03/20 Unknown Rx release pregabalin 150 mg capsule 150 mg PO QID 30 Days #120 cap 10/19/20 12/03/20 12/02/20 Rx dulaglutide 1.5 mg/0.5 mL 1.5 mg SUBCUT .ONCE WEEKLY #2 ml 11/18/20 12/03/20 Unknown Rx subcutaneous pen injector lisinopril 10 mg tablet 10 mg PO DAILY #90 tab 11/22/20 12/03/20 12/02/20 Rx Lasix 20 mg PO DAILY 12/03/20 12/03/20 12/02/20 History atorvastatin 40 mg PO DAILY 12/03/20 12/03/20 12/02/20 History baclofen 20 mg PO QID 12/03/20 12/03/20 12/02/20 History glipizide 5 mg PO DAILY 12/03/20 12/03/20 12/02/20 History trazodone 200 mg PO DAILY 12/03/20 12/03/20 12/02/20 History verapamil 240 mg PO DAILY 12/03/20 12/03/20 12/02/20 History Allergies Allergy/AdvReac Type Severity Reaction Status Date / Time amitriptyline Allergy ALGY-Conges Verified 11/08/20 15:03 soina metformin Allergy ADR-Diarrhe Verified 11/08/20 15:03 a temazepam Allergy ALGY-Conges Verified 11/08/20 15:03 sonia Current Medications Current Medications Generic Name Dose Route Start Last Admin Trade Name Freq PRN Reason Stop Dose Admin Albuterol/Ipratropium 3 ml 12/04/20 09:00 12/05/20 08:43 Ipratropium-Albuterol 3 Ml Neb INHALATION 3 ml Q6H.RESPIRATORY FREDO Administration Aspirin 81 mg 12/04/20 11:55 12/04/20 14:21 Aspirin 81 Mg Ec Tablet PO 81 mg DAILY FREDO Administration Baclofen 10 mg 12/04/20 09:00 12/05/20 07:51 Baclofen 10 Mg Tablet OG-TUBE 10 mg QID FREDO Administration Docusate Sodium 100 mg 12/04/20 10:00 12/05/20 07:51 Docusate Sodium 10 Mg/Ml (5ml) Liq PO 100 mg BID FREDO Administration Enoxaparin Sodium 90 mg 12/04/20 14:00 12/05/20 02:43 Enoxaparin 100 Mg/Ml Syringe 1 mg/kg (90 mg) 90 mg SUBCUT Administration Q12H FREDO Famotidine 20 mg 12/04/20 03:00 12/05/20 02:43 Famotidine 20 Mg/2 Ml Inj IVP 20 mg Q12H FREDO Administration Propofol 1,000 mg in 100 mls @ 0 mls/hr 12/03/20 19:15 12/05/20 11:14 Diprivan IV 50 mcg/kg/min .Q0M FREDO 38.1 mls/hr Administration Protocol Per Protocol Sodium Chloride 1,000 mls @ 100 mls/hr 12/03/20 23:45 12/04/20 19:00 Sodium Chloride 0.9% IV 100 mls/hr .Q10H FREDO Administration Dopamine HCl/Dextrose 400 mg in 250 mls @ 23.814 mls/hr 12/04/20 01:30 12/05/20 00:53 Intropin Drip IV 0 mcg/kg/min CONT FREDO 0 mls/hr Titration Protocol 5 MCG/KG/MIN Fentanyl 1,000 mcg/ Sodium 100 mls @ 0 mls/hr 12/04/20 03:00 12/05/20 06:30 Chloride IV 75 mcg/hr .Q0M FREDO 7.5 mls/hr Administration Protocol Per Protocol Piperacillin Sod/Tazobactam 50 mls @ 12.5 mls/hr 12/04/20 04:00 12/05/20 04:51 Sod 3.375 gm/ Sodium Chloride IV 12.5 mls/hr Q8H FREDO Administration Protocol Vancomycin HCl 2,000 mg/ 500 mls @ 250 mls/hr 12/04/20 09:00 12/05/20 04:49 Sodium Chloride IV Infused Q18H FREDO Infusion Potassium Phosphate 40 meq/ 109.0909 mls @ 27.25 mls/hr 12/05/20 09:30 12/05/20 10:48 Sodium Chloride IV 12/05/20 13:30 27.3 mls/hr ONCE ONE Administration Insulin Aspart 0 unit 12/04/20 06:00 12/05/20 05:46 Insulin Aspart 100 Unit/1 Ml SUBCUT 4 unit Q6H FREDO Administration Protocol Neomycin/Polymyxin/Bacitracin 1 applic 12/04/20 09:00 12/05/20 07:51 Pptfsevv-Niij-Acbuqgsoqe Oint 28 Gm TOPICAL 1 applic BID FREDO Administration PFSH Acute PFSH: Medical History (Updated 12/05/20 @ 10:36 by Rico Hernandez MD) Allergic rhinosinusitis Chronic neck and back pain Controlled type 2 diabetes mellitus, without long-term current use of insulin COPD, moderate Dyslipidemia Encounter for long-term opiate analgesic use Enrolled in chronic care management Essential (primary) hypertension Gastritis Heart failure with preserved ejection fraction Echo 03/2020 EF 55%, Grade II diastolic dysfunction Hypothyroidism, unspecified Incomplete bladder emptying Iron deficiency anemia Neurogenic bladder Primary osteoarthritis of left knee Primary osteoarthritis of right knee Tear of medial collateral ligament of left knee Vitamin D deficiency Surgical History H/O circumcision H/O colonoscopy 11/20/2016 H/O esophagogastroduodenoscopy 2014 H/O knee surgery H/O oral surgery H/O shoulder surgery left to remove mass History of back surgery Family History Father Diabetes Stroke Bleeding disorder Mother Diabetes Cancer SKIN Other CAD (coronary artery disease) Lung disease Denies family history of Anesthesia complication Social History (Updated 12/04/20 @ 02:02 by Sally Graves MD) Smoking and tobacco status: current every day smoker cigarettes Packs smoked per day: 0.5 Years cigarettes smoked: 45 Quit status (tobacco): has tried quititng Smoking risk assessment/counseling performed?: Yes Alcohol intake: never Lives independently: Yes Household members: spouse Marital status: Current occupational status: disabled Current gender identity: Male Dietary Habits: Current diet type/program: regular Caffeine: Yes Caffeine intake frequency: carbonated beverages Number of carbonated beverage servings: 1 During the past year weight has: increased > 10 lbs Home Safety: Firearms in home: Yes Firearms unloaded and locked?: Yes Vitals/I&O/Wt Last Vital Signs Temp 99.0 F 12/05/20 04:00 Pulse 87 12/05/20 09:30 Resp 14 12/05/20 10:23 BP 102/56 12/05/20 09:30 Pulse Ox 92 12/05/20 09:30 12/04/20 12/05/20 12/05/20 22:59 06:59 14:59 Intake Total 550.082 / 2237.837 814.575 / 3052.412 180.115 / 180.115 Output Total 600 / 600 550 / 1150 200 / 200 Balance -49.918 / 1637.837 264.575 / 1902.412 -19.885 / -19.885 Weight last 48 hrs Weight 3.302 oz Weight 206 lb 6.4 oz Weight 280 lb Physical Exam Narrative: EXAM NARRATIVE: GENERAL: Patient is alert, awake and oriented x3. NECK: No jugular vein distension. HEENT: No cyanosis. No icterus. No pallor. HEART: Regular S1 and S2. No murmur, rub or gallop. LUNGS: Clear to auscultate bilaterally. ABDOMEN: Soft, nontender and nondistended. Positive bowel sounds. No guarding, rebound or tenderness. CENTRAL NERVOUS SYSTEM: Grossly nonfocal. EXTREMITIES: Lower extremities with trace edema bilaterally. Pulses not palpable in the lower extremities, both dorsalis pedis and posterior tibial. Multiple lesions on the foot and hand consistent with frostbite Urinary Catheter Management^: Luna: Cath Placed During This Visit: yes Reason for Continuing Indwelling Catheter: Accurate Measurement of Urinary Output in Critically Ill Patients Urinary Catheter Date of Insertion: 12/03/20 Urinary Catheter Time of Insertion: 19:58 Data Labs: Other Labs: CONCLUSIONS 1. 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 Very sluggish flow was noted in the posterior tibial artery with no flow detected in the dorsalis pedis artery. 2. Abnormal resting RENEE of 0.4 on the right side, suggestive of severe obstructive arterial disease, possibly multisegmental involving the femoral and infrapopliteal vessels No similar previous studies are available for comparison Dr Elke Davila MD [facility] (Electronically Signed) Final Date: 04 December 2020 16:33 Micro: Micro: Microbiology 12/03/20 20:40 Gram Stain - Final Cerebrospinal Flu id CSF Culture - Prel iminary 12/04/20 01:49 Blood Culture - Pr eliminary Blood NEGATIVE TO CLARE E 12/04/20 01:42 Blood Culture - Pr eliminary Blood NEGATIVE TO CLARE E 12/04/20 14:05 Gram Stain - Final Sputum - Endotrac heal Tube Aspirate A&P Assessment and plan (1) PAD (peripheral artery disease): Patient appeared to have a stable peripheral arterial disease without critical limb ischemia. He may require further assessment through peripheral angiogram which at this point is not warranted. We recommend at the time of discharge are off to the discharge as an outpatient to proceed with peripheral angiogram. I will see him in my clinic after the discharge for the plan be advised and Status: Acute (2) NSTEMI (non-ST elevated myocardial infarction): Could be due to underlying coronary artery disease with demand ischemia. Echocardiogram normal without significant valvular abnormality. Before discharge may ask for stress test Status: Acute (3) Hypothermia: As per medicine Status: Acute Qualifiers: Encounter type: initial encounter Qualified Code(s): T68.XXXA - Hyp othermia, initial encounter (4) Cold injuries: Wound care and maintaining optimal body temp as per medicine Status: Acute Qualifiers: Encounter type: initial encounter Qualified Code(s): T69.9XXA - Effect of reduced temperature, unspecified, initial encounter Consult Attestations Medical Necessity Statement: Patient require continuation hospitalization for above defined care Coding Level of Care Code New Pt Acute 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
[2020-12-05 11:51] LABS: INR 1.25 (0.8-1.2)
[2020-12-05 11:52] LABS: Partial Thromboplastin Time 38.4 SECONDS (23.9-36.7)
[2020-12-05 11:53] LABS: Fibrinogen 470 mg/dL (174-498)
[2020-12-05 11:56] LABS: D Dimer 0.83 ug/mIFEU (0-0.59)
[2020-12-05 12:17] LABS: Glucose Point of Care 143 mg/dL (70-110)
[2020-12-05 14:41] LABS: Glucose Point of Care 128 mg/dL (70-110)
[2020-12-05] MEDS: labetalol 5 mg/mL SDV 20mL 10 MG IVP (16:46)
[2020-12-05] MEDS: propofol 1,000 MG/100 ML INJ 19.1 MG IV (16:46)
[2020-12-05 18:16] LABS: Glucose Point of Care 201 mg/dL (70-110)
[2020-12-05] MEDS: atorvastatin 40 mg Tablet PO (20:44)
[2020-12-05] MEDS: dexmedetomidine 400 MCG in sodium chloride 0.9% (100 ml) 100 ML 16.3 MCG IV (21:30)
[2020-12-06] VITALS (34 sets, daily range): BP systolic 114–208; BP diastolic 64–100; PULSE 52–95; RESP 14–27; TEMP 35.8–37.2; O2SAT 92–98
[2020-12-06] MEDS: propofol 1,000 MG/100 ML INJ 22.9 MG IV (00:08)
[2020-12-06] MEDS: enoxaparin 100 mg/mL Syringe 90 MG SUBCUT (01:53)
[2020-12-06] MEDS: ipratropium-albuterol 3 mL Neb INHALATION ×4 (02:08→20:17)
[2020-12-06] MEDS: famotidine 20 mg/2 mL INJ IVP ×2 (02:37→16:34)
[2020-12-06] MEDS: propofol 1,000 MG/100 ML INJ 30.5 MG IV (04:21)
[2020-12-06] MEDS: piperacillin-tazobactam 3.375 GM in sodium chloride 0.9% (plus) 50 ML IV ×3 (04:23→20:44)
[2020-12-06 04:39] LABS: Basophils # 0.1 10^3/uL (0.0-0.1); Basophils % 0.6 %; Eosinophils # 0.6 10^3/uL (0.0-0.8); Eosinophils % 6.5 %; Hematocrit 35.8 % (42.0-52.0); Hemoglobin 11.8 g/dL (11.7-16.6); Lymphocytes # 2.8 10^3/uL (0.8-4.8); Lymphocytes % 32.2 %; Mean Corpuscular Hemoglobin 31.4 pg (28.0-34.0); Mean Corpuscular Volume 95.2 fL (80-94); Mean Platelet Volume 10.5 fL (7.4-10.4); Neutrophils # 4.15 10^3/uL (1.8-7.7); Neutrophils % 48.4 %; Nucleated Red Blood Cells % 0 %; Platelet Count 169 10^3/cmm (130-400); Red Blood Count 3.76 10^6/uL (4.1-5.3); Red Cell Distribution Width 14.7 % (12.1-15.1); White Blood Count 8.6 10^3/uL (4.0-10.0)
[2020-12-06 04:59] LABS: ABG PCO2 45.4 mmHg (35-45); ABG PH Result 7.44 (7.35-7.45); Base Excess ABG 5.8 mmol/L (-2.0-2.0); Blood Gas Allen Test Pos; Blood Gas Sample Site Radial, right; Blood Gas Sample Type Arterial; HCO3 ABG 30.8 mmol/L (22-26); Oxygen Device VENT; PO2 ABG 63.5 mmHg (80.0-100.0)
[2020-12-06 05:08] LABS: Lactate (Lactic Acid level) 1.3 mmol/L (0.5-2.2)
[2020-12-06 05:21] LABS: INR 0.97 (0.8-1.2)
[2020-12-06 05:22] LABS: Fibrinogen 519 mg/dL (174-498); NT Pro B Type Natriuretic Pept 1186 pg/mL (0-125); Partial Thromboplastin Time 33.3 SECONDS (23.9-36.7); Procalcitonin 0.25 ng/mL (0-0.5)
[2020-12-06 05:25] LABS: D Dimer 0.64 ug/mIFEU (0-0.59)
[2020-12-06 05:35] LABS: Alanine Aminotransferase 35 U/L (0-41); Alkaline Phosphatase 117 IU/L (40-130); Aspartate Amino Transferase 28 U/L (0-40); Blood Urea Nitrogen 9 mg/dL (6-20); C Reactive Protein 58.3 mg/L (0.0-4.9); Calcium 8.7 mg/dL (8.5-10.5); Carbon Dioxide 27 mmol/L (22-29); Chloride 108 mmol/L (98-107); Ferritin 214 ng/mL (30-400); Globulin 2.3 g/dL (1.3-4.6); Glomerular Filtration Rate 76.7 mL/min (90-130); Glucose 120 mg/dL (65-115); Magnesium 1.8 mg/dL (1.7-2.3); Osmolality Calculated 300 mOsm/kg (285-295); Phosphorus 2.8 mg/dL (2.5-4.5); Sodium 145 mmol/L (136-145); Total Bilirubin 0.4 mg/dL (0.15-1.2); Total Protein 5.3 g/dL (6.6-8.7); Uric Acid 3.1 mg/dL (3.4-7.0)
[2020-12-06 06:39] LABS: Glucose Point of Care 143 mg/dL (70-110)
[2020-12-06 06:44] LABS: Anion Gap 13.6 (5-19); Creatine Phosphokinase 425 U/L (39-308); Potassium 3.6 mmol/L (3.5-5.1)
[2020-12-06 06:54] LABS: Glucose Point of Care 134 mg/dL (70-110)
--- NOTE | 2020-12-06 07:00 | XR_ITS ---
WS: [id number] PORTABLE CHEST HISTORY: sob COMPARISON: 12/05/2020 Endotracheal tube is in good position. The tip of the nasogastric tube is not included on this series . Also the RIGHT costophrenic angle is not included. Hyperexpanded lungs. Slight elevation of the LEFT hemidiaphragm. Increasing consolidation at the LEFT costophrenic angle. No pleural effusion or pneumothorax. Cardiac size: Mildly enlarged cardiac silhouette. Mediastinum/Aorta: Mild atherosclerosis aorta. No osseous abnormality seen. XR/XR chest 1V portable [id number] IMPRESSION: 1. Endotracheal tube in good position. Nasogastric tube is not included in its entirety but the tip does extend below the GE junction. 2. Increasing consolidation at the LEFT costophrenic angle. Pneumonia versus a telectasis.
[2020-12-06 07:32] LABS: Glucose Point of Care 135 mg/dL (70-110)
[2020-12-06] MEDS: labetalol 5 mg/mL SDV 20mL 10 MG IVP ×2 (07:44→16:55)
[2020-12-06] MEDS: neomycin-poly-bacitracin oint 28 gm 1 APPLIC TOPICAL ×2 (07:56→17:52)
[2020-12-06] MEDS: baclofen 10 mg Tablet OG-TUBE (07:56)
[2020-12-06] MEDS: aspirin 81 mg EC Tablet PO (07:56)
[2020-12-06] MEDS: hyDRALAzine 20 mg/mL INJ 1 mL 10 MG IVP ×2 (08:25→23:13)
--- NOTE | 2020-12-06 09:38 | PC.CHAP ---
Pastoral Care Encounter/Spiritual Assessment Type of Contact [] Declined coordinator of library services visit [] Patient/Family/Request visit [] Outpatient visit [] Follow-up visit [] Physician referral [] Code/Alert [x] Routine visit [] Staff referral [] Actively dying [] Patient sleeping [] Family support [] [] Out of room [] Palliative care [] [] Receiving care in room [] Pre-surgical visit [] Trauma [] Long length of stay [x] ICU visit [] Other: Relational/Emotional Strength [] Patient feels connected with others/family/visitors/staff [] Distress [] Loneliness/isolation [] Abandonment Spirituality of Patient [] Person of Mar[place]el [] Attends Protestant of their [place] [] Believes in Prayer [] Reads Bible or Jew materials [] There are Spiritual issues to be addressed Datawarehouse Developer Interventions [x] Prayer [] Active listening [] Non-anxious presence [] Spiritual/emotional support [] Crisis/trauma care [] Spiritual counseling [] Bereavement support [] Provided bereavement packet [] Provided Bible/devotional materials [] Provided toy/stuffed animal, coloring book to patient or family member [] Provided Communion [] Anointing/[place] [] Salvation [x] Completed spiritual assessment [] Other: Impact on Illness or Injury [] Angry [] Fearful [] Anxious [] Often cries [] Exhaustion [] Unable to work [] Unable to attend jewish [] Unable to walk/stand [] Unable to read [] Unable to drive [] Unable to eat/drink [] Unable to sleep [] Unable to be with family [] Patient intubated [] Other: Summary patient resting- actively watching tv... Time spent with patient
--- NOTE | 2020-12-06 10:22 | PC.NURSE ---
Patient was extubated this AM and was placed on 2L NC. Patient was able to follow commands and all sedation was shut off. After extubation Oxygen saturation remained above 94%. Patient has not been able to verbally respond to staff.
[2020-12-06] MEDS: morphine 4 mg/mL SDV 1 mL 2 MG IVP ×2 (10:55→11:50)
--- NOTE | 2020-12-06 11:02 | PC.NURSE ---
Patient is confused, not respondning to staff and attempting to get out of bed.
--- NOTE | 2020-12-06 11:12 | P.PN_ITS ---
Subjective Subjective: Interval history: Troy was intubated when I saw him this morning. He was sedated. History and physical reviewed as well as hospital course. Medications: Reviewed: Yes Vitals/I&O/Wt Last Vital Signs Temp 99.0 F 12/06/20 08:00 Pulse 92 12/06/20 10:00 Resp 26 H 12/06/20 10:55 BP 189/90 12/06/20 10:00 Pulse Ox 95 12/06/20 10:55 12/05/20 12/06/20 12/06/20 22:59 06:59 14:59 Intake Total 543.2499 / 773.3649 796.229 / 1569.5939 206.180 / 206.180 Output Total 2500 / 3750 975 / 4725 650 / 650 Balance -1956.7501 / -2976.6351 -178.771 / -3155.4061 -443.820 / -443.820 Weight last 48 hrs Weight 91.263 kg Weight 89.494 kg Weight 93.623 g Physical Exam Narrative: EXAM NARRATIVE: General exam is a sedated male, no distress, who could open his eyes to verbal stimuli Neurologic: No obvious focal deficits Neck is supple no without lymphadenopathy or thyromegaly Cardiovascular regular in rhythm without murmur Lungs clear but with diminished breath sounds bilaterally Abdomen is soft with positive bowel sounds. No obvious organomegaly demonstrated Luna Extremities no cyanosis clubbing or edema, cap refill brisk. Urinary Catheter Management^: Luna: Cath Placed During This Visit: yes Reason for Continuing Indwelling Catheter: Accurate Measurement of Urinary Output in Critically Ill Patients Urinary Catheter Date of Insertion: 12/03/20 Urinary Catheter Time of Insertion: 19:58 Data : 12/06/20 04:21 12/06/20 04:21 Micro: Microbiology 12/04/20 14:05 Gram Stain - Final Sputum - Endotracheal Tube Aspirate Sputum Culture - Final 12/03/20 20:40 Gram Stain - Final Cerebrospinal Fluid CSF Culture - Preliminary 12/04/20 14:05 Urine Culture - Final Urine Catheterized A&P Assessment and plan (1) Acute respiratory failure: Plan on extubation today Overall appears to be improved No evidence of pneumonia Status: Acute (2) Acute encephalopathy: Responding to verbal stimuli, and when sedation is lessened can follow commands Further reevaluation after extubation Repeat TSH, with free T3 and T4 Check B12 CT head negative Status: Acute (3) Acute kidney injury: Resolved Status: Acute (4) Hypothermia: Resolved Status: Acute Qualifiers: Encounter type: initial encounter Qualified Code(s): T68.XXXA - Hypothermia, initial encounter (5) Cold injuries: Local wound care, avoid pressure Status: Acute Qualifiers: Encounter type: initial encounter Qualified Code(s): T69.9XXA - Effect of reduced temperature, unspecified, initial encounter (6) Heart failure with preserved ejection fraction: Currently stable with no evidence of heart failure Status: Chronic Qualifiers: Heart failure chronicity: chronic Qualified Code(s): I50.32 - Chronic diastolic (congestive) heart failure Additional A&P Information Possible pneumonia, add Zosyn, check MRSA PCR Peripheral vascular disease, cardiology will follow up as an outpatient. chronic pain Type 2 diabetes sliding scale insulin Hypothyroidism. Check TSH, free T4, free T3 Medical problems as outlined in his past medical history. Lovenox will suffice for DVT prophylaxis Attestations Medical Necessity Statement*: Needs continued ICU stay secondary to mechanical ventilation, encephalopathy. Critical Care Time: 43The high probability of a clinically significant, sudden or life threatening deterioration of the patient's [cardiovascular, renal, neurologic, respiratory] system(s) required my full and direct attention, intervention and personal management. The critical care time is as shown. This time is in addition to time spent performing any reported procedures but includes the following: [x] Data and vital sign review and interpretation [x] Patient assessment, examination and intervention [x] Documentation [x] Medication orders and management Critical Care Time (min): 43 Coding Level of Care Code Acute Logistics Director for [facility] Diagnoses Acute respiratory failure J96.00 Acute encephalopathy G93.40 Acute kidney injury N17.9 Hypothermia T68.XXXA Encounter type: initial encounter Cold injuries T69.9XXA Encounter type: initial encounter Heart failure with preserved ejection fraction I50.32 Heart failure chronicity: chronic
[2020-12-06 11:17] LABS: Glucose Point of Care 165 mg/dL (70-110)
[2020-12-06 12:18] LABS: Thyroid Stimulating Hormone 0.43 uIU/mL (0.27-4.20); Vitamin B12 258 pg/mL (232-1245)
[2020-12-06] MEDS: LORazepam 2 mg/mL INJ 1 mL IVP ×2 (12:49→19:26)
[2020-12-06] MEDS: dexmedetomidine 400 MCG in sodium chloride 0.9% (100 ml) 100 ML 16.6 MCG IV (13:33)
[2020-12-06 14:12] LABS: Free T4 Free Thyroxine 1.56 ng/dL (0.82-1.77); T3 Free 2.2 PG/ML (2.0-4.4)
--- NOTE | 2020-12-06 14:19 | PC.SOCIAL ---
Pg 2 IMM Explained to pt's , Pg 2 IMM, via phone. No questions voiced. Provided pt a copy. Signed, dated, & timed a copy & placed in chart.
--- NOTE | 2020-12-06 14:30 | PC.NURSE ---
Patient has been restless since being extubated this am. Attempting to climb out of bed and pulls wires and cords off. 1:1 sitter is at bedside. 2 skin tears have been noticed. One to patients left forearm and on left hand. dressings applied. Sedation is on per orders. patient is now resting with eyes closed. Respirations unlabored.
--- NOTE | 2020-12-06 15:18 | P.PN_ITS ---
Subjective Subjective: Interval history: Troy was intubated when I saw him this morning. He was sedated. History and physical reviewed as well as hospital course. Medications: Reviewed: Yes Vitals/I&O/Wt Last Vital Signs Temp 99.0 F 12/06/20 08:00 Pulse 72 12/06/20 15:05 Resp 16 12/06/20 14:54 BP 190/78 12/06/20 13:00 Pulse Ox 95 12/06/20 14:54 12/06/20 12/06/20 12/06/20 06:59 14:59 22:59 Intake Total 796.229 / 1569.5939 218.838 / 218.838 Output Total 975 / 4725 650 / 650 900 / 1550 Balance -178.771 / -3155.4061 -431.162 / -431.162 -900 / -1331.162 Weight last 48 hrs Weight 201 lb 3.2 oz Weight 197 lb 4.8 oz Weight 3.302 oz Physical Exam Narrative: EXAM NARRATIVE: GENERAL: Patient is disoriented but awake NECK: No jugular vein distension. HEENT: No cyanosis. No icterus. No pallor. HEART: Regular S1 and S2. No murmur, rub or gallop. LUNGS: Clear to auscultate bilaterally. ABDOMEN: Soft, nontender and nondistended. Positive bowel sounds. No guarding, rebound or tenderness. CENTRAL NERVOUS SYSTEM: Grossly nonfocal. EXTREMITIES: Lower extremities with trace edema bilaterally. Pulses not palpable in the lower extremities, both dorsalis pedis and posterior tibial. No ulcer on the foot color of the foot pinkish with capillary refill Urinary Catheter Management^: Luna: Cath Placed During This Visit: yes Reason for Continuing Indwelling Catheter: Accurate Measurement of Urinary Output in Critically Ill Patients Urinary Catheter Date of Insertion: 12/03/20 Urinary Catheter Time of Insertion: 19:58 Data : 12/06/20 04:21 12/06/20 04:21 Micro: Microbiology 12/04/20 14:05 Gram Stain - Final Sputum - Endotracheal Tube Aspirate Sputum Culture - Final 12/03/20 20:40 Gram Stain - Final Cerebrospinal Fluid CSF Culture - Preliminary 12/04/20 14:05 Urine Culture - Final Urine Catheterized A&P Assessment and plan (1) PAD (peripheral artery disease): Patient appeared to have a stable peripheral arterial disease without critical limb ischemia. He may require further assessment through peripheral angiogram which at this point is not warranted. We recommend at the time of discharge are off to the discharge as an outpatient to proceed with peripheral angiogram. I will see him in my clinic after the discharge for the plan to be advised. Remained stable however if patient has lifestyle limiting claudication as an outpatient we can proceed with peripheral angiogram after the discharge Status: Acute (2) NSTEMI (non-ST elevated myocardial infarction): Continue medical management for now and perform stress test before discharge Status: Acute (3) Hypothermia: As per medicine Status: Acute Qualifiers: Encounter type: initial encounter Qualified Code(s): T68.XXXA - Hypothermia, initial encounter (4) Cold injuries: Wound care and maintaining optimal body temp as per medicine Status: Acute Qualifiers: Encounter type: initial encounter Qualified Code(s): T69.9XXA - Effect of reduced temperature, unspecified, initial encounter Attestations Medical Necessity Statement*: Patient require continuation hospitalization for above defined care. Coding Level of Care Code Established Pt Acute Senior Care Assistant for [facility] Patient Type Established History Detailed Exam Detailed Medical Decision Making Moderate Complexity Diagnoses PAD (peripheral artery disease) I73.9 NSTEMI (non-ST elevated myocardial infarction) I21.4 Hypothermia T68.XXXA Encounter type: initial encounter Cold injuries T69.9XXA Encounter type: initial encounter
[2020-12-06 17:47] LABS: Glucose Point of Care 160 mg/dL (70-110)
--- NOTE | 2020-12-06 17:59 | PC.NURSE ---
Fentanyl wasted with HAZEL Waters
--- NOTE | 2020-12-06 20:56 | PC.NURSE ---
Patient restless, up on knees in bed with hand on Foly and central line, PRN administered per order, Patient unable to swallow 2100 Baclofen and Atorvastatin, supine eyes closed regular RR 2L NC at this time call light within reach, one on one sitter at bedside
[2020-12-06] MEDS: dexmedetomidine 400 MCG in sodium chloride 0.9% (100 ml) 100 ML IV (21:18)
[2020-12-06] MEDS: enoxaparin 40 mg/0.4 mL Syringe SUBCUT (22:42)
[2020-12-07] VITALS (33 sets, daily range): BP systolic 82–184; BP diastolic 49–102; PULSE 60–131; RESP 12–29; TEMP 36.9–37.1; O2SAT 90–98
[2020-12-07] MEDS: LORazepam 2 mg/mL INJ 1 mL IVP ×2 (00:34→13:10)
[2020-12-07 00:45] LABS: Glucose Point of Care 170 mg/dL (70-110)
--- NOTE | 2020-12-07 01:50 | PC.NURSE ---
patient found to be restless in bed almost rolling self out of bed, this nurse concerned that patient will pull out central line, Dr Davis contacted and gave T.O. for 20 mg Zyprexa IM 1x now, upon entering room after receiving order this nurse noted R femoral Central line was dislodged with bruise around site, pressure was immediately held at site, no blood return and could not flush, Femoral line was removed and pressure continued to be held, patient not cooperating with pressure and moved out from pressure and pushing staff away and moderate amount blood flowed out from site, pressure continued to be held at site, IM Zyprexa was administered, bleeding stopped, Dr. Davis notified and gave T.O. for non-violent medical restraints
[2020-12-07] MEDS: OLANZapine 10 mg VIAL 20 MG IM (02:16)
[2020-12-07] MEDS: ipratropium-albuterol 3 mL Neb INHALATION ×4 (03:12→20:50)
[2020-12-07] MEDS: famotidine 20 mg/2 mL INJ IVP (03:39)
[2020-12-07] MEDS: hyDRALAzine 20 mg/mL INJ 1 mL 10 MG IVP ×2 (03:51→20:09)
[2020-12-07] MEDS: piperacillin-tazobactam 3.375 GM in sodium chloride 0.9% (plus) 50 ML IV ×3 (05:53→19:51)
--- NOTE | 2020-12-07 06:00 | ECG_ITS ---
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 Measurements Intervals [place] Rate: 100 P: 71 [place]: 188 QRS: -43 QRSD: 113 T: 58 QT: 373 QTc: 483 Interpretive Statements SINUS TACHYCARDIA MARKED LEFT AXIS DEVIATION [QRS AXIS < -30] INCOMPLETE RIGHT BUNDLE BRANCH BLOCK POSSIBLE ANTERIOR MYOCARDIAL INFARCTION, PROBABLY OLD Compared to ECG 12/05/2020 06:10:04 Left-axis deviation now present Incomplete right bundle-branch block now present Myocardial infarct finding now present Sinus rhythm no longer present Right bundle-branch block no longer present Electronically Signed On 12-07-2020 8:04:07 TECHNICAL BUSINESS ANALYST by Roseanne Dunne M.D. [id number]
[2020-12-07] MEDS: morphine 4 mg/mL SDV 1 mL 2 MG IVP ×3 (06:12→19:49)
[2020-12-07 06:19] LABS: Glucose Point of Care 149 mg/dL (70-110)
[2020-12-07 07:24] LABS: Basophils # 0.1 10^3/uL (0.0-0.1); Basophils % 0.4 %; Eosinophils # 0.2 10^3/uL (0.0-0.8); Eosinophils % 1.6 %; Hematocrit 43.6 % (42.0-52.0); Hemoglobin 14.5 g/dL (11.7-16.6); Lymphocytes # 2.4 10^3/uL (0.8-4.8); Lymphocytes % 19.8 %; Mean Corpuscular HGB Conc 33.3 g/dL (30.0-36.0); Mean Corpuscular Hemoglobin 30.8 pg (28.0-34.0); Mean Corpuscular Volume 92.6 fL (80-94); Mean Platelet Volume 9.8 fL (7.4-10.4); Monocytes # 1.2 10^3/uL (0.2-0.9); Monocytes % 9.9 %; Neutrophils # 8.27 10^3/uL (1.8-7.7); Neutrophils % 68.1 %; Nucleated Red Blood Cells % 0 %; Platelet Count 155 10^3/cmm (130-400); Red Blood Count 4.71 10^6/uL (4.1-5.3); Red Cell Distribution Width 14.3 % (12.1-15.1); White Blood Count 12.2 10^3/uL (4.0-10.0)
[2020-12-07 07:41] LABS: Glucose Point of Care 143 mg/dL (70-110)
[2020-12-07 07:56] LABS: Alanine Aminotransferase 43 U/L (0-41); Albumin Level 3.9 g/dL (3.5-5.2); Alkaline Phosphatase 139 IU/L (40-130); Aspartate Amino Transferase 66 U/L (0-40); Blood Urea Nitrogen 9 mg/dL (6-20); Calcium 9.6 mg/dL (8.5-10.5); Carbon Dioxide 30 mmol/L (22-29); Chloride 99 mmol/L (98-107); Globulin 2.7 g/dL (1.3-4.6); Glomerular Filtration Rate 99.3 mL/min (90-130); Glucose 127 mg/dL (65-115); Magnesium 1.7 mg/dL (1.7-2.3); Osmolality Calculated 296 mOsm/kg (285-295); Sodium 143 mmol/L (136-145); Total Bilirubin 2.1 mg/dL (0.15-1.2); Total Protein 6.6 g/dL (6.6-8.7)
[2020-12-07] MEDS: tamsulosin 0.4 mg Capsule PO (08:21)
[2020-12-07] MEDS: baclofen 10 mg Tablet PO ×3 (08:22→19:51)
[2020-12-07] MEDS: pantoprazole DR 40 mg Tablet PO (08:22)
[2020-12-07] MEDS: aspirin 81 mg EC Tablet PO (08:22)
[2020-12-07] MEDS: morphine ER (12 HR) 30 mg tablet 60 MG PO ×2 (08:22→17:03)
[2020-12-07] MEDS: pregabalin 50 mg Capsule PO ×2 (08:23→17:03)
[2020-12-07] MEDS: neomycin-poly-bacitracin oint 28 gm 1 APPLIC TOPICAL ×2 (08:23→17:03)
[2020-12-07] MEDS: metoprolol tartrate 25 mg Tablet PO ×2 (08:24→19:51)
--- NOTE | 2020-12-07 10:40 | PC.NURSE ---
Patient has been restless in bed this shift and continues to have 1:1 sitter. He is alert and oriented to self but is still confused. Patient has been calling out for help and calling out wifes name. When nurse asks what patients needs he does not respond. updated on condition
--- NOTE | 2020-12-07 10:42 | PC.CHAP ---
Pastoral Care Encounter/Spiritual Assessment Type of Contact [] Declined delivery of shopping news visit [] Patient/Family/Request visit [] Outpatient visit [] Follow-up visit [] Physician referral [] Code/Alert [x] Routine visit [] Staff referral [] Actively dying [] Patient sleeping [] Family support [] [] Out of room [] Palliative care [] [] Receiving care in room [] Pre-surgical visit [] Trauma [] Long length of stay [x] ICU visit [] Other: Relational/Emotional Strength [] Patient feels connected with others/family/visitors/staff [] Distress [] Loneliness/isolation [] Abandonment Spirituality of Patient [] Person of Maricel [] Attends Yazidism of their Maricel [] Believes in Prayer [] Reads Bible or Shinto materials [] There are Spiritual issues to be addressed Fire Equipment Repairer Inspector Interventions [x] Prayer [] Active listening [] Non-anxious presence [] Spiritual/emotional support [] Crisis/trauma care [] Spiritual counseling [] Bereavement support [] Provided bereavement packet [] Provided Bible/devotional materials [] Provided toy/stuffed animal, coloring book to patient or family member [] Provided Communion [] Anointing/[place] [] Salvation [x] Completed spiritual assessment [] Other: Impact on Illness or Injury [] Angry [] Fearful [] Anxious [] Often cries [] Exhaustion [] Unable to work [] Unable to attend muslim [] Unable to walk/stand [] Unable to read [] Unable to drive [] Unable to eat/drink [] Unable to sleep [] Unable to be with family [] Patient intubated [] Other: Summary Time spent with patient
[2020-12-07 11:28] LABS: Glucose Point of Care 145 mg/dL (70-110)
--- NOTE | 2020-12-07 12:40 | PM.PN ---
Subjective Subjective: Interval history: Troy more responsive this morning. He was able to answer few questions and seem to know where he was. Still restless. Doing okay off the ventilator. Medications: Reviewed: Yes Vitals/I&O/Wt Last Vital Signs Temp 98.5 F 12/07/20 08:00 Pulse 103 H 12/07/20 12:00 Resp 19 H 12/07/20 12:00 BP 184/86 12/07/20 08:00 Pulse Ox 96 12/07/20 11:00 12/06/20 12/07/20 12/07/20 22:59 06:59 14:59 Intake Total 125.13 / 343.968 50 / 393.968 790 / 790 Output Total 900 / 1550 2100 / 3650 275 / 275 Balance -774.87 / -1206.032 -2050 / -3256.032 515 / 515 Weight last 48 hrs Weight 87.543 kg Weight 91.263 kg Weight 89.494 kg Physical Exam Narrative: EXAM NARRATIVE: General exam no apparent distress, able to answer few questions. Fidgets constantly. Neurologic: No obvious focal deficits Neck is supple no without lymphadenopathy or thyromegaly Cardiovascular regular in rhythm without murmur Lungs clear but with diminished breath sounds bilaterally Abdomen is soft with positive bowel sounds. No obvious organomegaly demonstrated Luna Extremities no cyanosis clubbing or edema, cap refill brisk. Urinary Catheter Management^: Luna: Cath Placed During This Visit: yes Reason for Continuing Indwelling Catheter: Accurate Measurement of Urinary Output in Critically Ill Patients Urinary Catheter Date of Insertion: 12/03/20 Urinary Catheter Time of Insertion: 19:58 Data : 12/07/20 07:17 12/07/20 07:17 Micro: Microbiology 12/03/20 20:40 Gram Stain - Final Cerebrospinal Fluid CSF Culture - Final 12/04/20 14:05 Gram Stain - Final Sputum - Endotracheal Tube Aspirate Sputum Culture - Final 12/04/20 14:05 Urine Culture - Final Urine Catheterized A&P Assessment and plan (1) Acute respiratory failure: Extubated December 06 No evidence of pneumonia Status: Acute (2) Acute encephalopathy: Fell encephalopathic but does appear to be improving. Had significant agitation yesterday requiring Zyprexa which may have improved his condition. Repeat TSH and B12 normal CT head negative Status: Acute (3) Acute kidney injury: Resolved Status: Acute (4) Hypothermia: Resolved Status: Acute Qualifiers: Encounter type: initial encounter Qualified Code(s): T68.XXXA - Hypothermia, initial encounter (5) Cold injuries: Local wound care, avoid pressure Status: Acute Qualifiers: Encounter type: initial encounter Qualified Code(s): T69.9XXA - Effect of reduced temperature, unspecified, initial encounter (6) Heart failure with preserved ejection fraction: Currently stable with no evidence of heart failure Status: Chronic Qualifiers: Heart failure chronicity: chronic Qualified Code(s): I50.32 - Chronic diastolic (congestive) heart failure Additional A&P Information Possible pneumonia, Zosyn added yesterday. Awaiting MRSA PCR Peripheral vascular disease, cardiology will follow up as an outpatient. chronic pain Type 2 diabetes sliding scale insulin Hypothyroidism. TSH normal Neck pain. Multiple medicines added back at partial dosage to try to resolve encephalopathy. Medical problems as outlined in his past medical history. Lovenox will suffice for DVT prophylaxis Attestations Medical Necessity Statement*: Needs continued hospitalization for treatment of encephalopathy following hypothermic injury, respiratory failure. 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
[2020-12-07] MEDS: OLANZapine 5 mg ODT PO ×2 (12:46)
--- NOTE | 2020-12-07 12:54 | PC.NURSE ---
Upon assessment this nurse noticed a red rash on patients back. Dr. elena and in room
[2020-12-07] MEDS: potassium chloride ER 20 mEq Tablet 40 MEQ PO (14:04)
[2020-12-07 14:36] LABS: Hepatitis A Antibody IgM Non-Reactive (Nonreactive); Hepatitis B Core IgM Non-Reactive (Nonreactive); Hepatitis B Surface Antigen Non-Reactive (Nonreactive); Hepatitis C Virus Antibody Non-Reactive (Nonreactive)
[2020-12-07 16:28] LABS: Glucose Point of Care 138 mg/dL (70-110)
[2020-12-07] MEDS: enoxaparin 40 mg/0.4 mL Syringe SUBCUT (19:50)
[2020-12-07] MEDS: dexmedetomidine 400 MCG in sodium chloride 0.9% (100 ml) 100 ML 11.4 MCG IV (19:52)
--- NOTE | 2020-12-07 20:33 | PC.NURSE ---
Received report from off going nurse. Pt's plan of care reviewed. Pt resting in bed. Respirations are even and unlabored. No s/sx of distress noted. Pt is confused but able to follow commands. He states he is at home and keeps yelling out help me. Pt is currently on soft restraints and keeps trying to sit up to get out of bed. We are able to get him to lay back down by reorienting. HR was tachy in the 130s at the beginning of the shift. Precedex was started back up at 0.05mcg/kg/hr. Pt has a 1:1 sitter. Bed in lowest and locked position, call light and water at bed side, x's 3 rails up. Bed alarm on. Will continue to monitor pt.
[2020-12-08] VITALS (34 sets, daily range): BP systolic 62–175; BP diastolic 43–132; PULSE 76–137; RESP 12–25; TEMP 36.5–37.1; O2SAT 90–98; BMI 32.6
[2020-12-08 02:11] LABS: Basophils # 0.1 10^3/uL (0.0-0.1); Basophils % 0.5 %; Eosinophils # 0.5 10^3/uL (0.0-0.8); Eosinophils % 4.5 %; Hematocrit 38.6 % (42.0-52.0); Hemoglobin 12.8 g/dL (11.7-16.6); Lymphocytes # 3.1 10^3/uL (0.8-4.8); Lymphocytes % 30.4 %; Mean Corpuscular HGB Conc 33.2 g/dL (30.0-36.0); Mean Corpuscular Hemoglobin 31.1 pg (28.0-34.0); Mean Corpuscular Volume 93.7 fL (80-94); Mean Platelet Volume 10.4 fL (7.4-10.4); Monocytes # 1.4 10^3/uL (0.2-0.9); Monocytes % 13.6 %; Neutrophils # 5.17 10^3/uL (1.8-7.7); Neutrophils % 50.6 %; Nucleated Red Blood Cells % 0 %; Platelet Count 151 10^3/cmm (130-400); Red Blood Count 4.12 10^6/uL (4.1-5.3); Red Cell Distribution Width 14.2 % (12.1-15.1); White Blood Count 10.2 10^3/uL (4.0-10.0)
[2020-12-08 02:19] LABS: Alanine Aminotransferase 34 U/L (0-41); Albumin Level 3.2 g/dL (3.5-5.2); Alkaline Phosphatase 109 IU/L (40-130); Anion Gap 15.6 (5-19); Aspartate Amino Transferase 40 U/L (0-40); Blood Urea Nitrogen 15 mg/dL (6-20); Carbon Dioxide 30 mmol/L (22-29); Chloride 98 mmol/L (98-107); Globulin 2.3 g/dL (1.3-4.6); Glomerular Filtration Rate 56.7 mL/min (90-130); Glucose 142 mg/dL (65-115); Magnesium 1.8 mg/dL (1.7-2.3); Osmolality Calculated 293 mOsm/kg (285-295); Potassium 3.6 mmol/L (3.5-5.1); Sodium 140 mmol/L (136-145); Total Bilirubin 1.2 mg/dL (0.15-1.2); Total Protein 5.5 g/dL (6.6-8.7)
[2020-12-08 02:35] LABS: Vancomycin Trough 21.4 ug/mL (10-15)
--- NOTE | 2020-12-08 02:44 | PC.PHAR ---
Vancomycin trough on dosage of 2gm IVPB every 24 hours is 21.4. Hold for 24 hours and resume at 1500mg every 24 hours with another trough to be obtained before the fourth 1500mg dose.
[2020-12-08] MEDS: ipratropium-albuterol 3 mL Neb INHALATION ×4 (02:49→21:11)
[2020-12-08] MEDS: morphine 4 mg/mL SDV 1 mL 2 MG IVP ×3 (03:37→23:40)
[2020-12-08] MEDS: piperacillin-tazobactam 3.375 GM in sodium chloride 0.9% (plus) 50 ML IV ×3 (04:44→20:52)
[2020-12-08 08:00] LABS: Glucose Point of Care 128 mg/dL (70-110)
[2020-12-08] MEDS: pregabalin 50 mg Capsule PO ×2 (09:08→17:25)
[2020-12-08] MEDS: pantoprazole DR 40 mg Tablet PO (09:08)
[2020-12-08] MEDS: aspirin 81 mg EC Tablet PO (09:08)
[2020-12-08] MEDS: tamsulosin 0.4 mg Capsule PO (09:08)
[2020-12-08] MEDS: baclofen 10 mg Tablet PO ×3 (09:09→20:52)
[2020-12-08] MEDS: morphine ER (12 HR) 30 mg tablet 60 MG PO ×2 (09:09→17:25)
[2020-12-08] MEDS: metoprolol tartrate 25 mg Tablet PO ×2 (09:11→20:52)
--- NOTE | 2020-12-08 09:25 | PC.CHAP ---
Pastoral Care Encounter/Spiritual Assessment Type of Contact [] Declined call out clerk visit [] Patient/Family/Request visit [] Outpatient visit [] Follow-up visit [] Physician referral [] Code/Alert [x] Routine visit [] Staff referral [] Actively dying [] Patient sleeping [] Family support [] [] Out of room [] Palliative care [] [] Receiving care in room [] Pre-surgical visit [] Trauma [] Long length of stay [x] ICU visit [] Other: Relational/Emotional Strength [] Patient feels connected with others/family/visitors/staff [] Distress [] Loneliness/isolation [] Abandonment Spirituality of Patient [] Person of Maricel [] Attends Zoroastrian of their Maricel [] Believes in Prayer [] Reads Bible or Advent materials [] There are Spiritual issues to be addressed Wheel And Caster Repairer Interventions [x] Prayer [] Active listening [] Non-anxious presence [] Spiritual/emotional support [] Crisis/trauma care [] Spiritual counseling [] Bereavement support [] Provided bereavement packet [] Provided Bible/devotional materials [] Provided toy/stuffed animal, coloring book to patient or family member [] Provided Communion [] Anointing/[place] [] Salvation [x] Completed spiritual assessment [] Other: Impact on Illness or Injury [] Angry [] Fearful [] Anxious [] Often cries [] Exhaustion [] Unable to work [] Unable to attend bahai [] Unable to walk/stand [] Unable to read [] Unable to drive [] Unable to eat/drink [] Unable to sleep [] Unable to be with family [] Patient intubated [] Other: Summary patient has sitter- restrained- and has catheter, trying to remove... says he fell asleep outside and has castro bite-- not sure what is real, or made up... Time spent with patient 10 min
--- NOTE | 2020-12-08 09:38 | P.PN_ITS ---
Subjective Subjective: Interval history: Troy reports he feels better today. He wants to sit up. He wants to walk. He states he wants to go home as well. He got emotional when I told him he could not. Medications: Reviewed: Yes Vitals/I&O/Wt Last Vital Signs Temp 97.7 F 12/08/20 05:00 Pulse 95 12/08/20 09:18 Resp 16 12/08/20 09:18 BP 117/57 12/08/20 06:00 Pulse Ox 94 12/08/20 09:18 12/07/20 12/08/20 12/08/20 22:59 06:59 14:59 Intake Total 1204.91 / 2064.00 486.76 / 2550.76 29.583 / 29.583 Output Total 600 / 875 Balance 1204.91 / 1789.00 -113.24 / 1675.76 29.583 / 29.583 Weight last 48 hrs Weight 88.961 kg Weight 87.543 kg Physical Exam Narrative: EXAM NARRATIVE: General exam no apparent distress, able to answer questions, much improved from yesterday. Neurologic: No obvious focal deficits Neck is supple no without lymphadenopathy or thyromegaly Cardiovascular regular in rhythm without murmur Lungs clear but with diminished breath sounds bilaterally Abdomen is soft with positive bowel sounds. No obvious organomegaly demonstrated Luna Extremities no cyanosis clubbing or edema, cap refill brisk. Urinary Catheter Management^: Luna: Cath Placed During This Visit: yes Reason for Continuing Indwelling Catheter: Accurate Measurement of Urinary Outp ut in Critically Ill Patients Urinary Catheter Date of Insertion: 12/03/20 Urinary Catheter Time of Insertion: 19:58 Data : 12/08/20 01:50 12/08/20 01:50 Micro: Microbiology 12/03/20 20:40 Gram Stain - Final Cerebrospinal Fluid CSF Culture - Final A&P Assessment and plan (1) Acute respiratory failure: Extubated December 06 No evidence of pneumonia Status: Acute (2) Acute encephalopathy: Encephalopathy much improved today TSH and B12 were normal CT head negative Will wean off Precedex. If stable without it could consider transfer to second floor, with sitter. If able to get off Precedex would consider discontinuing Luna as well. Status: Acute (3) Acute kidney injury: Resolved Status: Acute (4) Hypothermia: Resolved Status: Acute Qualifiers: Encounter type: initial encounter Qualified Code(s): T68.XXXA - Hypothermia, initial encounter (5) Cold injuries: Local wound care, avoid pressure Status: Acute Qualifiers: Encounter type: initial encounter Qualified Code(s): T69.9XXA - Effect of reduced temperature, unspecified, initial encounter (6) Heart failure with preserved ejection fraction: Currently stable with no evidence of heart failure Status: Chronic Qualifiers: Heart failure chronicity: chronic Qualified Code(s): I50.32 - Chronic diastolic (congestive) heart failure Additional A&P Information Slight elevation of creatinine. Encourage p.o. intake. Transaminitis, resolved. Hepatitis panel negative. Possible pneumonia, currently on Zosyn. Awaiting MRSA PCR Peripheral vascular disease, cardiology will follow up as an outpatient. chronic pain Type 2 diabetes sliding scale insulin Hypothyroidism. TSH normal Neck pain. Multiple medicines added back at partial dosage to try to resolve encephalopathy. Medical problems as outlined in his past medical history. Lovenox will suffice for DVT prophylaxis Attestations Medical Necessity Statement*: Needs continued hospitalization secondary to encephalopathy requiring Precedex, pneumonia requiring IV antibiotics. 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
[2020-12-08] MEDS: neomycin-poly-bacitracin oint 28 gm 1 APPLIC TOPICAL ×2 (10:02→17:23)
[2020-12-08 11:19] LABS: Glucose Point of Care 138 mg/dL (70-110)
--- NOTE | 2020-12-08 13:15 | PC.SOCIAL ---
IMM update: IMM page 2. patient received updated IMM. Initialed, placed in chart, and copy provided to patient.
--- NOTE | 2020-12-08 13:56 | PC.OT ---
OT evaluation initiated. RN came in to flush Luna and patient with urgent catheter issues that need to be addressed. Will hold OT eval until this issue is resolved.
[2020-12-08 14:54] LABS: Glucose Point of Care 128 mg/dL (70-110)
[2020-12-08 14:54] LABS: Glucose Point of Care 145 mg/dL (70-110)
[2020-12-08] MEDS: lidocaine 2% Urojet 20 mL TOPICAL (14:58)
[2020-12-08] MEDS: LORazepam 2 mg/mL INJ 1 mL IVP (20:52)
[2020-12-08] MEDS: enoxaparin 40 mg/0.4 mL Syringe SUBCUT (21:41)
[2020-12-08 23:27] LABS: Glucose Point of Care 140 mg/dL (70-110)
[2020-12-09] VITALS (24 sets, daily range): BP systolic 108–130; BP diastolic 71–92; PULSE 92–122; RESP 13–27; TEMP 36.6–37.1; O2SAT 92–98
[2020-12-09] MEDS: diphenhydrAMINE 50 mg/mL SDV 1mL 25 MG IVP ×2 (00:56→22:34)
[2020-12-09] MEDS: vancomycin 1,500 MG/300 ML PIGGYBACK 150 MG IV (03:24)
[2020-12-09] MEDS: piperacillin-tazobactam 3.375 GM in sodium chloride 0.9% (plus) 50 ML IV ×3 (03:24→21:32)
[2020-12-09] MEDS: ipratropium-albuterol 3 mL Neb INHALATION ×4 (03:25→20:11)
[2020-12-09 04:14] LABS: Anion Gap 15.5 (5-19); Blood Urea Nitrogen 22 mg/dL (6-20); Carbon Dioxide 31 mmol/L (22-29); Chloride 98 mmol/L (98-107); Glomerular Filtration Rate 56.7 mL/min (90-130); Glucose 150 mg/dL (65-115); Osmolality Calculated 298 mOsm/kg (285-295); Potassium 3.5 mmol/L (3.5-5.1); Sodium 141 mmol/L (136-145)
[2020-12-09 05:44] LABS: Glucose Point of Care 167 mg/dL (70-110)
[2020-12-09] MEDS: tamsulosin 0.4 mg Capsule PO (09:00)
[2020-12-09] MEDS: potassium chloride ER 20 mEq Tablet 40 MEQ PO (09:00)
[2020-12-09] MEDS: nystatin 100,000 unit/mL UDC 5 mL 500000 UNIT PO ×4 (09:00→21:29)
[2020-12-09] MEDS: aspirin 81 mg EC Tablet PO (09:00)
[2020-12-09] MEDS: baclofen 10 mg Tablet PO ×3 (09:00→21:28)
[2020-12-09] MEDS: pregabalin 50 mg Capsule PO ×2 (09:00→17:56)
[2020-12-09] MEDS: morphine ER (12 HR) 30 mg tablet 60 MG PO ×2 (09:00→17:14)
[2020-12-09] MEDS: pantoprazole DR 40 mg Tablet PO (09:00)
[2020-12-09] MEDS: metoprolol tartrate 25 mg Tablet PO ×2 (09:11→21:28)
[2020-12-09] MEDS: neomycin-poly-bacitracin oint 28 gm 1 APPLIC TOPICAL ×2 (09:57→18:29)
[2020-12-09] MEDS: docusate sodium 10 mg/mL (5ml) Liq 100 MG PO ×2 (09:57→18:29)
[2020-12-09 10:12] LABS: Glucose Point of Care 142 mg/dL (70-110)
--- NOTE | 2020-12-09 10:25 | PC.CHAP ---
Pastoral Care Encounter/Spiritual Assessment Type of Contact [] Declined cook at school visit [] Patient/Family/Request visit [] Outpatient visit [] Follow-up visit [] Physician referral [] Code/Alert [x] Routine visit [] Staff referral [] Actively dying [] Patient sleeping [] Family support [] [] Out of room [] Palliative care [] [] Receiving care in room [] Pre-surgical visit [] Trauma [] Long length of stay [x] ICU visit [] Other: Relational/Emotional Strength [] Patient feels connected with others/family/visitors/staff [] Distress [] Loneliness/isolation [] Abandonment Spirituality of Patient [x] Person of Maricel [] Attends Pentecostal of their Maricel [] Believes in Prayer [] Reads Bible or Muslim materials [] There are Spiritual issues to be addressed Transfer Pumper Interventions [x] Prayer [x] Active listening [x] Non-anxious presence [x] Spiritual/emotional support [] Crisis/trauma care [] Spiritual counseling [] Bereavement support [] Provided bereavement packet [] Provided Bible/devotional materials [] Provided toy/stuffed animal, coloring book to patient or family member [] Provided Communion [] Anointing/[place] [] Salvation [x] Completed spiritual assessment [] Other: Impact on Illness or Injury [] Angry [] Fearful [] Anxious [] Often cries [] Exhaustion [] Unable to work [] Unable to attend jehovah's witness [] Unable to walk/stand [] Unable to read [] Unable to drive [] Unable to eat/drink [] Unable to sleep [] Unable to be with family [] Patient intubated [] Other: Summary patient still has sitter-- restraints removed and physical therapy working with patient.. 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
--- NOTE | 2020-12-09 10:54 | PM.PN ---
Subjective Subjective: Interval history: Troy reports he is doing well today. No specific concerns. Medications: Reviewed: Yes Vitals/I&O/Wt Last Vital Signs Temp 98.4 F 12/09/20 04:00 Pulse 114 H 12/09/20 09:04 Resp 18 12/09/20 08:59 BP 108/72 12/09/20 04:00 Pulse Ox 92 12/09/20 08:59 12/08/20 12/09/20 12/09/20 22:59 06:59 14:59 Intake Total 740 / 1625.798 350 / 1975.798 50 / 50 Output Total 1050 / 1400 875 / 2275 Balance -310 / 225.798 -525 / -299.202 50 / 50 Weight last 48 hrs Weight 76.022 kg Weight 88.961 kg Physical Exam Narrative: EXAM NARRATIVE: General exam no apparent distress, answering questions appropriately Neurologic: No obvious focal deficits Neck is supple no without lymphadenopathy or thyromegaly Cardiovascular regular in rhythm without murmur Lungs clear but with diminished breath sounds bilaterally Abdomen is soft with positive bowel sounds. No obvious organomegaly demonstrated Luna, hematuria that was present yesterday has gone away Extremities no cyanosis clubbing or edema, cap refill brisk. Urinary Catheter Management^: Luna: Cath Placed During This Visit: yes Reason for Continuing Indwelling Catheter: Accurate Measurement of Urinary Output in Critically Ill Patients Urinary Catheter Date of Insertion: 12/03/20 Urinary Catheter Time of Insertion: 19:58 Data : 12/08/20 01:50 12/09/20 03:25 Micro: Microbiology 12/04/20 01:42 Blood Culture - Final Blood NO GROWTH AFTER 5 DAYS 12/04/20 01:49 Blood Culture - Final Blood NO GROWTH AFTER 5 DAYS A&P Assessment and plan (1) Acute respiratory failure: Extubated December 06 Concern of aspiration pneumonia. Currently on Zosyn Check chest x-ray tomorrow Status: Acute (2) Acute encephalopathy: Encephalopathy has improved to a degree I believe he is likely at baseline TSH and B12 were normal CT head negative Precedex discontinued Discontinue Luna today Status: Acute (3) Acute kidney injury: Resolved Status: Acute (4) Hypothermia: Resolved Status: Acute Qualifiers: Encounter type: initial encounter Qualified Code(s): T68.XXXA - Hypothermia, initial encounter (5) Cold injuries: Local wound care, avoid pressure Status: Acute Qualifiers: Encounter type: initial encounter Qualified Code(s): T69.9XXA - Effect of reduced temperature, unspecified, initial encounter (6) Heart failure with preserved ejection fraction: Currently stable with no evidence of heart failure Status: Chronic Qualifiers: Heart failure chronicity: chronic Qualified Code(s): I50.32 - Chronic diastolic (congestive) heart failure Additional A&P Information Slight elevation of creatinine. Encourage p.o. intake. Transaminitis, resolved. Hepatitis panel negative. Possible pneumonia, currently on Zosyn, Vancomycin Peripheral vascular disease, cardiology will follow up as an outpatient. chronic pain Type 2 diabetes sliding scale insulin Hypothyroidism. TSH normal Neck pain. Multiple medicines added back at partial dosage to try to resolve encephalopathy. Medical problems as outlined in his past medical history. 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
[2020-12-09] MEDS: calcium carbonate 500 mg Chew Tablet PO (11:25)
[2020-12-09 11:53] LABS: Glucose Point of Care 237 mg/dL (70-110)
[2020-12-09] MEDS: duloxetine 30 mg Capsule PO (14:52)
[2020-12-09 17:18] LABS: Glucose Point of Care 180 mg/dL (70-110)
[2020-12-09 21:17] LABS: Glucose Point of Care 216 mg/dL (70-110)
[2020-12-09] MEDS: enoxaparin 40 mg/0.4 mL Syringe SUBCUT (21:37)
[2020-12-10] VITALS (10 sets, daily range): BP systolic 126–146; BP diastolic 74–83; PULSE 81–98; RESP 16–18; TEMP 36.1–36.9; O2SAT 90–97
[2020-12-10] MEDS: diphenhydrAMINE cream 30 gm 1 APPLIC TOPICAL (01:36)
[2020-12-10] MEDS: ipratropium-albuterol 3 mL Neb INHALATION ×2 (03:34→08:01)
[2020-12-10] MEDS: vancomycin 1,500 MG/300 ML PIGGYBACK 150 MG IV (03:49)
[2020-12-10 06:22] LABS: Basophils # 0.1 10^3/uL (0.0-0.1); Basophils % 0.6 %; Eosinophils # 0.7 10^3/uL (0.0-0.8); Eosinophils % 6.8 %; Hematocrit 37.3 % (42.0-52.0); Hemoglobin 12.2 g/dL (11.7-16.6); Lymphocytes # 3.3 10^3/uL (0.8-4.8); Lymphocytes % 30.2 %; Mean Corpuscular HGB Conc 32.7 g/dL (30.0-36.0); Mean Corpuscular Hemoglobin 30.7 pg (28.0-34.0); Mean Corpuscular Volume 93.7 fL (80-94); Mean Platelet Volume 10.8 fL (7.4-10.4); Monocytes # 1.3 10^3/uL (0.2-0.9); Monocytes % 12.3 %; Neutrophils # 5.37 10^3/uL (1.8-7.7); Neutrophils % 49.7 %; Nucleated Red Blood Cells % 0 %; Platelet Count 152 10^3/cmm (130-400); Red Blood Count 3.98 10^6/uL (4.1-5.3); Red Cell Distribution Width 13.7 % (12.1-15.1); White Blood Count 10.8 10^3/uL (4.0-10.0)
[2020-12-10] MEDS: piperacillin-tazobactam 3.375 GM in sodium chloride 0.9% (plus) 50 ML IV (06:22)
[2020-12-10 06:34] LABS: Alanine Aminotransferase 29 U/L (0-41); Albumin Level 3.9 g/dL (3.5-5.2); Alkaline Phosphatase 102 IU/L (40-130); Blood Urea Nitrogen 12 mg/dL (6-20); Calcium 9.6 mg/dL (8.5-10.5); Carbon Dioxide 31 mmol/L (22-29); Chloride 96 mmol/L (98-107); Globulin 2.6 g/dL (1.3-4.6); Glomerular Filtration Rate 68.8 mL/min (90-130); Glucose 157 mg/dL (65-115); Osmolality Calculated 287 mOsm/kg (285-295); Sodium 137 mmol/L (136-145); Total Bilirubin 0.7 mg/dL (0.15-1.2); Total Protein 6.5 g/dL (6.6-8.7)
[2020-12-10 06:37] LABS: Aspartate Amino Transferase 27 U/L (0-40)
--- NOTE | 2020-12-10 07:00 | XRR_ITS ---
PROCEDURE INFORMATION: Exam: XR Chest, 1 View Exam date and time: 12/10/2020 6:42 AM Age: 60 years old Clinical indication: Condition or disease; Lung condition and disease; Pneumonia; Cough and shortness of breath TECHNIQUE: Imaging protocol: XR of the chest Views: 1 view. COMPARISON: CR XR chest 1V portable [id number] 12/06/2020 4:36 AM FINDINGS: Tubes, catheters and devices: Interval removal of endotracheal and feeding tubes. Lungs: Nearly completely resolved left lower lobe airspace opacity. Pleural spaces: Unremarkable. No pleural effusion. No pneumothorax. Pleural spaces: Unremarkable. No pleural effusion. No pneumothorax. Heart/Mediastinum: Stable cardiomediastinal silhouette. Bones/joints: Unremarkable. XR/XR chest 1V portable [id number] IMPRESSION: Near complete resolution of left lower lobe airspace opacity.
[2020-12-10 07:02] LABS: Glucose Point of Care 201 mg/dL (70-110)
[2020-12-10] MEDS: morphine ER (12 HR) 30 mg tablet 60 MG PO (08:53)
[2020-12-10] MEDS: tamsulosin 0.4 mg Capsule PO (08:53)
[2020-12-10] MEDS: baclofen 10 mg Tablet PO (08:53)
[2020-12-10] MEDS: nystatin 100,000 unit/mL UDC 5 mL 500000 UNIT PO (08:54)
[2020-12-10] MEDS: aspirin 81 mg EC Tablet PO (08:54)
[2020-12-10] MEDS: duloxetine 30 mg Capsule PO (08:54)
[2020-12-10] MEDS: pantoprazole DR 40 mg Tablet PO (08:54)
[2020-12-10] MEDS: pregabalin 50 mg Capsule PO (08:54)
[2020-12-10] MEDS: neomycin-poly-bacitracin oint 28 gm 1 APPLIC TOPICAL (08:55)
[2020-12-10] MEDS: docusate sodium 10 mg/mL (5ml) Liq 100 MG PO (09:00)
[2020-12-10] MEDS: metoprolol tartrate 25 mg Tablet PO (09:02)
--- NOTE | 2020-12-10 09:05 | XRR_ITS ---
PROCEDURE INFORMATION: Exam: XR Left Foot Exam date and time: 12/10/2020 9:07 AM Age: 60 years old Clinical indication: Left; Patient HX: Pain to bottom of foot; Additional info: Foot pain TECHNIQUE: Imaging protocol: XR Left foot. Views: 1 or 2 views. COMPARISON: CR Foot 3 views, LEFT* [id number] 12/03/2017 10:12 AM FINDINGS: Bones/joints: No acute fracture or dislocation. Old healed fracture deformity of the 2nd metatarsal base noted. The joint spaces are well maintained. Soft tissues: Normal. XR/XR foot LT 2V [id number] IMPRESSION: No acute fracture or dislocation.
[2020-12-10 11:15] LABS: Glucose Point of Care 204 mg/dL (70-110)
--- NOTE | 2020-12-10 11:26 | PM.DCS ---
Discharge Providers Date of Admission: 12/03/20 22:30 Date of Discharge: December 10, 2020 Attending Provider at Admission: Sally Graves MD Attending Provider at Discharge: Justino Quintero MD Primary Care Provider: Madeline Shields DO Diagnoses at Discharge Discharge Diagnosis (1) Acute respiratory failure: Status: Acute (2) Acute encephalopathy: Status: Acute (3) Acute kidney injury: Status: Acute (4) Hypothermia: Status: Acute Qualifiers: Encounter type: initial encounter Qualified Code(s): T68.XXXA - Hypothermia, initial encounter (5) Cold injuries: Status: Acute Qualifiers: Encounter type: initial encounter Qualified Code(s): T69.9XXA - Effect of reduced temperature, unspecified, initial encounter (6) Heart failure with preserved ejection fraction: Status: Chronic Permanent problem details: Echo 03/2020 EF 55%, Grade II diastolic dysfunction Qualifiers: Heart failure chronicity: chronic Qualified Code(s): I50.32 - Chronic diastolic (congestive) heart failure Reason for Visit Reason for Visit: AMS/ LETHARGIC Hospital Course Hospital Course Troy is a 60-year-old white male who was found down at home, and was hypothermic on admission. He required intubation. He was encephalopathic. Troponin was elevated. Echocardiogram was completed with normal EF and no wall motion abnormalities. Acute kidney injury was present. Upon my evaluation he was doing better. He was able to be extubated on December 06. Encephalopathy gradually went away. TSH and B12 were checked and normal as well as CT of his head. Kidney injury went away. Cold injuries were noted with no evidence of infection. Significant concern of vascular disease was noted on peripheral arterial ultrasound therefore cardiology was involved. They recommended outpatient evaluation as there was no critical ischemia. There was some concern of pneumonia, and antibiotics were started during his hospital course. By the time of discharge encephalopathy completely resolved. He was afebrile. White blood cell count was near normal. Chest x-ray showed almost completely resolved left lower lobe infiltrate. It was thought he could be discharged home with close follow-up. He will follow-up with cardiology in regards to his peripheral vascular disease. Secondary to his elevated troponin on admission, a nuclear stress test will be set up as an outpatient. I have visited with cardiology regarding this as well which they agreed to follow-up. He will continue on aspirin, beta-jay, and statin. Glipizide will be held on discharge secondary to its potential of hypoglycemia. He will check his blood sugars, and follow-up with his primary care provider. He will finish 3 more days of Augmentin. His pain medication was significantly reduced during this hospital stay which the patient tolerated well. We will follow up with his pain clinic physician regarding this. Physical Exam Narrative: EXAM NARRATIVE: General exam no apparent distress Cardiovascular regular rate and rhythm without murmur Lungs clear Abdomen is soft, positive bowel sounds Extremities no cyanosis clubbing or edema. Urinary Catheter Management^: Luna: Cath Placed During This Visit: yes, but has since been removed by the nurse Reason for Continuing Indwelling Catheter: Accurate Measurement of Urinary Output in Critically Ill Patients Urinary Catheter Date of Insertion: 12/03/20 Urinary Catheter Time of Insertion: 19:58 Date Urinary Catheter Removed: 12/09/20 Time Urinary Catheter Discontinued: 08:30 Discharge Data Data Completed and Pending: Completed Studies During Hospitalization Category Date Time Status CT head wo con* 7 0450 Urgent Cat Scan 12/03/20 18:45 Completed XR chest 1V samir ble [id number] Routine Exams 12/05/20 07:00 Completed XR chest 1V samir ble [id number] Routine Exams 12/06/20 07:00 Completed XR chest 1V samir ble [id number] Routine Exams 12/10/20 07:00 Completed XR chest 1V samir ble [id number] Stat Exams 12/04/20 04:00 Completed XR chest 1V samir ble 14194 Urgent Exams 12/03/20 18:45 Completed XR foot LT 2V 736 20 Urgent Exams 12/10/20 09:05 [place] [id number] Rout ine Ultrasound 12/04/20 08:42 Completed CV carotid duplex BI* [id number] Routine Ultrasound 12/04/20 11:59 Completed CV echo complete* [id number] Routine Ultrasound 12/04/20 08:42 Completed US liver 14734 Ro utine Ultrasound 12/04/20 12:04 Completed Pending at discharge Category Date Time Status Vancomycin Trough Timed Lab 12/12/20 02:00 Ordered Labs from last 24 hours 12/10/20 12/10/20 12/10/20 10:40 06:59 05:12 WBC RBC Hgb Hct MCV MCH MCHC RDW Plt Count MPV Neut % (Auto) Lymph % (Auto) [place] % (Auto) Eos % (Auto) Baso % (Auto) Neut # (Auto) Lymph # (Auto) [place] # (Auto) Eos # (Auto) Baso # (Auto) Nucleated RBC % (a uto) Nucleated RBCs # Sodium 137 Potassium 4.0 Chloride 96 L Carbon Dioxide 31 H Anion Gap 14.0 BUN 12 Creatinine 1.1 GFR Calculation 68.8 L Glucose 157 H POC Glucose 204 H 201 H Calculated Osmolal ity 287 Calcium 9.6 Total Bilirubin 0.7 AST 27 ALT 29 Alkaline Phosphata se 102 Total Protein 6.5 L Albumin 3.9 Globulin 2.6 Misc Test Referenc e 12/10/20 12/09/20 12/09/20 05:12 20:53 16:46 WBC 10.8 H RBC 3.98 L Hgb 12.2 Hct 37.3 L MCV 93.7 MCH 30.7 MCHC 32.7 RDW 13.7 Plt Count 152 MPV 10.8 H Neut % (Auto) 49.7 Lymph % (Auto) 30.2 [place] % (Auto) 12.3 Eos % (Auto) 6.8 Baso % (Auto) 0.6 Neut # (Auto) 5.37 Lymph # (Auto) 3.3 [place] # (Auto) 1.3 H Eos # (Auto) 0.7 Baso # (Auto) 0.1 Nucleated RBC % (a uto) 0 Nucleated RBCs # 0.0 Sodium Potassium Chloride Carbon Dioxide Anion Gap BUN Creatinine GFR Calculation Glucose POC Glucose 216 H 180 H Calculated Osmolal ity Calcium Total Bilirubin AST ALT Alkaline Phosphata se Total Protein Albumin Globulin Misc Test Referenc e 12/09/20 12/08/20 11:20 00:39 WBC RBC Hgb Hct MCV MCH MCHC RDW Plt Count MPV Neut % (Auto) Lymph % (Auto) [place] % (Auto) Eos % (Auto) Baso % (Auto) Neut # (Auto) Lymph # (Auto) [place] # (Auto) Eos # (Auto) Baso # (Auto) Nucleated RBC % (a uto) Nucleated RBCs # Sodium Potassium Chloride Carbon Dioxide Anion Gap BUN Creatinine GFR Calculation Glucose POC Glucose 237 H Calculated Osmolal ity Calcium Total Bilirubin AST ALT Alkaline Phosphata se Total Protein Albumin Globulin Misc Test Referenc e See comment Vitals: Last Vital Signs Temp 97.1 F L 12/10/20 11:17 Pulse 88 12/10/20 11:17 Resp 16 12/10/20 11:17 BP 138/83 12/10/20 11:17 Pulse Ox 97 12/10/20 11:17 Discharge Plan Discharge Patient Disposition: Home Condition: Stable Prescriptions: New Lyrica 50 mg Capsule 50 mg PO BID Qty: 60 RF: 0 aspirin 81 mg Tablet,Delayed Release (Dr/Ec) 81 mg PO DAILY Qty: 30 RF: 0 amoxicillin-pot clavulanate [Augmentin] 875-125 mg tablet 1 tab PO BID Qty: 6 RF: 0 metoprolol tartrate 25 mg Tablet 25 mg PO BID@0900,2100 Qty: 60 RF: 0 Continued guaifenesin [Mucinex] 600 mg tablet extended release 12hr 600 mg PO Q12H PRN (Reason: Secretions) RF: 0 azelastine 137 mcg (0.1 %) aerosol,spray 2 spray INTRANASAL BID 90 Days Qty: 30 RF: 3 albuterol sulfate 2.5 mg /3 mL (0.083 %) solution for nebulization 2.5 mg INHALATION Q4H PRN (Reason: Shortness Of Breath) RF: 0 ferrous sulfate 324 mg (65 mg iron) tablet,delayed release (DR/EC) 324 mg PO DAILY RF: 0 cholecalciferol (vitamin D3) 50,000 unit capsule 5,000 unit PO DAILY RF: 0 (DME) True Metrix Glucose Test Strip Strip See Rx Instructions .ROUTE .MEDSUPPLY Qty: 100 RF: 2 (DME) DIANE quintanae See Rx Instructions .Route .MEDSUPPLY Qty: 1 RF: 0 duloxetine 60 mg capsule,delayed release(DR/EC) 60 mg PO BID 30 Days Qty: 60 RF: 1 morphine 15 mg tablet 15 mg PO .FIVES TIMES DAILY PRN (Reason: Pain) 30 Days Qty: 150 RF: 0 erythromycin 5 mg/gram (0.5 %) ointment 1 applic ophthalmic (eye) QDAY Qty: 1 RF: 0 (DME) True Metrix Pro Test Strip Strip See Rx Instructions .ROUTE .MEDSUPPLY Qty: 50 RF: 0 (DME) pen needle, diabetic [Comfort EZ Pen [place]] 29 gauge x 1/2 needle See Rx Instructions .ROUTE .MEDSUPPLY Qty: 50 RF: 2 albuterol sulfate [ProAir HFA] 90 mcg/actuation HFA aerosol inhaler 2 puff INHALATION Q6H PRN (Reason: Shortness Of Breath) Qty: 8.5 RF: 0 (DME) blood-glucose meter [True Metrix Air Glucose Meter] Kit See Rx Instructions .ROUTE .MEDSUPPLY Qty: 1 RF: 0 ondansetron HCl [Zofran] 4 mg tablet 4 mg PO Q6H Qty: 12 RF: 1 Anoro Ellipta 62.5-25 mcg/actuation blister with device 1 inh INHALATION Q24H Qty: 60 RF: 2 Trulicity 1.5 mg/0.5 mL pen injector 1.5 mg SUBCUT .ONCE WEEKLY Qty: 2 RF: 1 ipratropium-albuterol 0.5 mg-3 mg(2.5 mg base)/3 mL Solution For Nebulization 3 ml inhalation Q6H PRN (Reason: shortness of breath or wheezing) Qty: 15 RF: 0 atorvastatin 40 mg tablet 40 mg PO DAILY RF: 0 Lasix 20 mg tablet 20 mg PO DAILY RF: 0 Changed tamsulosin 0.4 mg capsule 0.4 mg PO DAILY Qty: 60 RF: 12 morphine 60 mg tablet extended release 60 mg PO Q12H 30 Days Qty: 90 RF: 0 baclofen 20 mg tablet 10 mg PO TID Qty: 0 RF: 0 Discontinued methylprednisolone acetate [Depo-Medrol] 80 mg/mL suspension 80 mg Infiltration ONCE Qty: 1 RF: 0 sodium chloride 0.9 % Solution 10 ml epidural ONCE Qty: 10 RF: 0 bupivacaine (PF) 0.25 % (2.5 mg/mL) solution 2 ml epidural ONCE Qty: 1 RF: 0 lidocaine (PF) 10 mg/mL (1 %) solution 10 mg SUBCUT ONCE Qty: 1 RF: 0 atenolol 50 mg tablet 50 mg PO DAILY Qty: 90 RF: 1 pregabalin [Lyrica] 150 mg capsule 150 mg PO QID 30 Days Qty: 120 RF: 1 meloxicam 15 mg tablet 15 mg PO DAILY Qty: 90 RF: 0 lisinopril 10 mg tablet 10 mg PO DAILY Qty: 90 RF: 0 glipizide 5 mg tablet extended release 24hr 5 mg PO DAILY RF: 0 trazodone 100 mg tablet 200 mg PO DAILY RF: 0 verapamil 240 mg capsule,ext rel. pellets 24 hr 240 mg PO DAILY RF: 0 Discharge Orders: Discharge Order (Routine); Ordered 12/10/20 Ordered By: Justino Quintero Other Ambulatory Orders: Sestamibi Stress Test Request (Routine) Timeframe: 1 Week Facility: [facility] - Location: Cardiac Diagnostic Laboratory Ordered By: Justino Quintero Referrals: Tulio Harper MD [Physician] - 1 week (Follow-up of peripheral vascular disease, nuclear stress test) Madeline Shields DO [Primary Care Provider] - 4-7 days (CBC, BMP on follow-up) Discharge Diet: Cardiac Discharge Activity: Increase activity as tolerated Activity Restrictions/Additional Instructions: Keep all follow-up appointments Sugar, and report your primary care provider For now discontinue glipizide, continue Trulicity Avoid cold exposure Discharge Attestations Time Spent in Discharge Care*: greater than 30 min Quality Metrics Clinical Quality Measures During this hospital stay, did patient experience: AMI Clinical Trial Participant: No Contraindication to aspirin (AMI): Aspirin given Contraindication to statin: Statin prescribed Coding Level of Care Code 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
--- NOTE | 2020-12-10 15:06 | PC.SOCIAL ---
data science and iot manager gave patient IMM update at 12:38pm. Initialed, dated, timed and placed in chart.
== END 2020-12-10 13:29 | disposition home or self-care (01) | DRG 70 ==
LOC: ER 21:11 → ICU 12-04 07:45 → MEDSURG 12-09 11:51
PROVIDERS: Family Medicine; Admitting Provider Hospitalist; Emergency Provider Emergency Medicine; PCP Family Medicine; Visit Provider Internal Medicine
DX: G93.41 Metabolic encephalopathy (principal); J18.9 Pneumonia, unspecified organism; I21.A1 Myocardial infarction type 2; J96.00 Acute respiratory failure, unspecified whether with hypoxia or hypercapnia; T33.012A Superficial frostbite of left ear, initial encounter; T33.832A Superficial frostbite of left toe(s), initial encounter; T33.831A Superficial frostbite of right toe(s), initial encounter; T33.011A Superficial frostbite of right ear, initial encounter; I50.32 Chronic diastolic (congestive) heart failure; M62.82 Rhabdomyolysis; E87.4 Mixed disorder of acid-base balance; N17.9 Acute kidney failure, unspecified; I95.9 Hypotension, unspecified; T68.XXXA Hypothermia, initial encounter; X31.XXXA Exposure to excessive natural cold, initial encounter; G89.29 Other chronic pain; M54.2 Cervicalgia; M54.9 Dorsalgia, unspecified; E11.51 Type 2 diabetes mellitus with diabetic peripheral angiopathy without gangrene; J43.9 Emphysema, unspecified; F17.210 Nicotine dependence, cigarettes, uncomplicated; E78.5 Hyperlipidemia, unspecified; I11.0 Hypertensive heart disease with heart failure; K29.70 Gastritis, unspecified, without bleeding; E03.9 Hypothyroidism, unspecified; R33.9 Retention of urine, unspecified; D50.9 Iron deficiency anemia, unspecified; N31.9 Neuromuscular dysfunction of bladder, unspecified; M17.0 Bilateral primary osteoarthritis of knee; E55.9 Vitamin D deficiency, unspecified; Z79.4 Long term (current) use of insulin; Z79.891 Long term (current) use of opiate analgesic; Z79.51 Long term (current) use of inhaled steroids; R60.9 Edema, unspecified
CPT/HCPCS: 31500; 36415; 36416; 36592; 36600; 51702; 62270; 70450; 71045; 73620; 76705; 80048; 80051; 80053; 80074; 80202; 80306; 80307; 80500; 81001; 82140; 82330; 82550; 82607; 82728; 82803; 82805; 82962; 83605; 83690; 83735; 83880; 84100; 84145; 84439; 84443; 84481; 84484; 84550; 85025; 85362; 85378; 85384; 85610; 85651; 85730; 86140; 87040; 87070; 87075; 87086; 87205; 87641; 89050; 90471; 90715; 93005; 93306; 93880; 93925; 94002; 94003; 94640; 94799; 96365; 96367; 96372; 97110; 97116; 97162; 97166; 97530; 99291; A4570; C1751; J0360; J1200; J1265; J1650; J1815; J1940; J2060; J2270; J2543; J2704; J3010; J3370; J3411; J3490; J7030; J7040; J7050

== ENCOUNTER → 2020-12-17 13:38 | Outpatient (BNVA) | payer MEDICARE, SELFPAY | PROVIDERS: PCP Family Medicine; Visit Provider Anesthesiology | DX: G89.29 Other chronic pain (principal); M54.2 Cervicalgia; M17.0 Bilateral primary osteoarthritis of knee; M54.9 Dorsalgia, unspecified; F17.219 Nicotine dependence, cigarettes, with unspecified nicotine-induced disorders; Z79.891 Long term (current) use of opiate analgesic | CPT/HCPCS: 99214 ==

== ENCOUNTER → 2020-12-31 14:52 | Outpatient (BNVA) | payer MEDICARE, SELFPAY | PROVIDERS: PCP Family Medicine; Visit Provider Family Medicine | DX: N17.9 Acute kidney failure, unspecified (principal); I21.4 Non-ST elevation (NSTEMI) myocardial infarction | CPT/HCPCS: 80053 ==

== ENCOUNTER → 2021-02-09 14:15 | Outpatient (BNVA) | payer MEDICARE, SELFPAY | PROVIDERS: PCP Family Medicine; Visit Provider Family Medicine | DX: I21.4 Non-ST elevation (NSTEMI) myocardial infarction (principal); E11.9 Type 2 diabetes mellitus without complications; J30.9 Allergic rhinitis, unspecified | CPT/HCPCS: 80048; 80061; 83036 ==

== ENCOUNTER 2021-02-16 19:06 | Inpatient (IN) | payer MEDICARE, SELFPAY ==
[2021-02-16 19:21] VITALS: BP 176/92; PULSE 113; RESP 18; TEMP 36.2; O2SAT 100; BMI 29.0
--- NOTE | 2021-02-16 19:36 | CTR_ITS ---
PROCEDURE INFORMATION: Exam: CT Abdomen And Pelvis With Contrast Exam date and time: 02/16/2021 7:40 PM Age: 60 years old Clinical indication: Nausea and vomiting; Abdominal pain; Additional info: Abd pain TECHNIQUE: Imaging protocol: Computed tomography of the abdomen and pelvis with contrast. Total images: 246 Radiation optimization: All CT scans at this facility use at least one of these dose optimization techniques: automated exposure control; mA and/or kV adjustment per patient size (includes targeted exams where dose is matched to clinical indication); or iterative reconstruction. Contrast material: OMNI 300; Contrast volume: 95 ml; Contrast route: INTRAVENOUS (IV); COMPARISON: [place] liver [id number] 12/04/2020 12:30 PM RADIATION DOSE METRICS: Total DLP (mGy-cm): 1708.05 FINDINGS: Lungs: Limited assessment of the lung bases fails to reveal evidence for active cardiopulmonary process. Liver: No visible hepatic mass or cystic structure. Gallbladder and bile ducts: Unremarkable. No calcified stones. No ductal dilation. Pancreas: Atrophic pancreas. No visible pancreatic ductal ectasia. Spleen: Scattered splenic calcifications of antecedent granulomatous disease. Adrenal glands: Adrenal glands unremarkable. Kidneys and ureters: No hydronephrosis or perinephric fluid. No visible nephrolithiasis. Small simple cortical cyst equator left kidney. No follow-up recommended. Stomach and bowel: Nonobstructive bowel pattern. No visible significant diverticulosis coli or evidence for diverticulitis. Constipation. No visible adynamic or reactive ileus. Appendix: The appendix is visualized and appears noninflamed. Intraperitoneal space: No visible evidence of mesenteric lymphadenitis or active mesenteritis/panniculitis. No visible pneumoperitoneum or intraperitoneal ascites. Vasculature: Portal vein patent. The abdominal aorta is nonaneurysmal. Moderate arterial sclerotic disease. Lymph nodes: No current visible evidence of active mesenteric or retroperitoneal lymphadenopathy. Urinary bladder: Urinary bladder unremarkable. Reproductive: Mild prostate hypertrophy. Bones/joints: No visible active or acute osseous pathology. Soft tissues: Unremarkable. Other findings: Obesity. CT/CT abdomen pelvis w con* [id number] IMPRESSION: 1. Currently no visible evidence for acute abdominal or pelvic pathologic process. 2. Constipation. COMMENTS: Consistent with the [employer]'s Incidental Findings Committee white paper (J Am Viola Radiol 2018): Any incidental renal lesion less than 1 cm or classified as too small to characterize, or any incidental cystic renal lesion characterized as simple-appearing, is likely benign. No follow-up imaging is recommended for these lesions per consensus recommendations based on imaging criteria. Radiation Dose CTDIVOL = (mGy): DLP = 1708.05 (mGy-cm)
--- NOTE | 2021-02-16 19:36 | XRR_ITS ---
PROCEDURE INFORMATION: Exam: XR Chest Exam date and time: 02/16/2021 7:40 PM Age: 60 years old Clinical indication: Chest pain; Additional info: Cp TECHNIQUE: Imaging protocol: XR of the chest. Views: 1 view. Total images: 1 COMPARISON: CR XR chest 1V portable [id number] 12/10/2020 6:41 AM FINDINGS: Lungs: No visible active interstitial or alveolar airspace disease. Hyperinflation and suspected component of COPD/chronic bronchitis. Pleural spaces: Unremarkable. No pleural effusion. No pneumothorax. Heart/Mediastinum: Unremarkable. No cardiomegaly. Bones/joints: Unremarkable. XR/XR chest 1V portable [id number] IMPRESSION: Nonacute.
--- NOTE | 2021-02-16 19:37 | ECG_ITS ---
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 Measurements Intervals Webb Rate: 90 P: 74 PA: 196 QRS: -57 QRSD: 117 T: 41 QT: 402 QTc: 493 Interpretive Statements SINUS RHYTHM POSSIBLE LEFT ATRIAL ENLARGEMENT [-0.1mV P WAVE IN V1/V2] LEFT AXIS DEVIATION [QRS AXIS < -30] INCOMPLETE RIGHT BUNDLE BRANCH BLOCK [90+ ms QRS DURATION, TERMINAL R IN V1/V2, 40+ ms S IN I/aVL/V4/V5/V6] ST DEVIATION AND MODERATE T-WAVE ABNORMALITY, CONSIDER ANTERIOR ISCHEMIA [-0.1+ mV T WAVE IN V3/V4] Compared to ECG 12/07/2020 05:30:13 T-wave abnormality now present Possible ischemia now present Sinus tachycardia no longer present Myocardial infarct finding no longer present Electronically Signed On 02-17-2021 10:21:17 CDT by Ted Nath M.D. [email or web address]
[2021-02-16 19:57] LABS: Basophils # 0.1 10^3/uL (0.0-0.1); Basophils % 0.3 %; Eosinophils % 0.2 %; Hematocrit 47.5 % (42.0-52.0); Hemoglobin 16.4 g/dL (11.7-16.6); Lymphocytes # 3.3 10^3/uL (0.8-4.8); Lymphocytes % 18.7 %; Mean Corpuscular HGB Conc 34.5 g/dL (30.0-36.0); Mean Platelet Volume 11.3 fL (7.4-10.4); Monocytes # 0.5 10^3/uL (0.2-0.9); Monocytes % 2.8 %; Neutrophils # 13.61 10^3/uL (1.8-7.7); Neutrophils % 77.5 %; Nucleated Red Blood Cells % 0 %; Platelet Count 234 10^3/cmm (130-400); Red Blood Count 5.46 10^6/uL (4.1-5.3); Red Cell Distribution Width 13.2 % (12.1-15.1); White Blood Count 17.6 10^3/uL (4.0-10.0)
[2021-02-16] MEDS: iohexol 300 mg/mL 100 mL Btl IV (20:06)
--- NOTE | 2021-02-16 20:17 | W.ED.SOB ---
HPI - SOB/Dyspnea General: Chief Complaint: Shortness of Breath/Dyspnea Stated Complaint: SOB/VOMITING Time Seen by Provider: 02/16/21 19:30 Source: patient Mode of arrival: ambulatory Limitations: no limitations History of Present Illness: HPI Narrative: 60-year-old male who presents here with diffuse abdominal pain. States been having abdominal pain throughout the day with nausea and one episode of vomiting. Triage states chest pain shortness of breath he denies any shortness of breath to me but states he has had some radiation of his nominal pain to his chest but has no chest pain. States pain is sharp in nature and rates it a 9 out of 10. He denies any fevers. Denies any diarrhea. He states he has had some constipation. Associated symptoms: Reports abdominal pain, chest pain and nausea; Deny fever(s) Review of Systems Const: Denies: fever(s), chills, body aches or change in appetite Eyes: Denies: blurry vision or eye discomfort ENMT: Denies: throat pain or dental pain Card: Reports: chest pain Resp: Denies: dyspnea GI: Reports: abdominal pain and nausea : Denies: dysuria Musc: Denies: neck pain or back pain Skin/Breast: Denies: rash Neuro: Denies: headache(s) Psych: Denies: depression Sudeep/Lymph: Denies: easy bruising All/Imm: Denies: urticaria PFSH ED PFSH: Medical History Allergic rhinosinusitis Chronic neck and back pain Controlled type 2 diabetes mellitus, without long-term current use of insulin COPD, moderate Dyslipidemia Encounter for long-term opiate analgesic use Enrolled in chronic care management Essential (primary) hypertension Gastritis Heart failure with preserved ejection fraction Echo 03/2020 EF 55%, Grade II diastolic dysfunction Hypothyroidism, unspecified Incomplete bladder emptying Iron deficiency anemia Neurogenic bladder PAD (peripheral artery disease) Primary osteoarthritis of left knee Primary osteoarthritis of right knee Tear of medial collateral ligament of left knee Vitamin D deficiency Surgical History H/O circumcision H/O colonoscopy 11/20/2016 H/O esophagogastroduodenoscopy 2014 H/O knee surgery H/O oral surgery H/O shoulder surgery left to remove mass History of back surgery Family History Father Diabetes Stroke Bleeding disorder Mother Diabetes Cancer SKIN Other CAD (coronary artery disease) Lung disease Denies family history of Anesthesia complication Social History Smoking and tobacco status: current every day smoker cigarettes Packs smoked per day: 0.25 Years cigarettes smoked: 45 Quit status (tobacco): has tried quititng Smoking risk assessment/counseling performed?: Yes Alcohol intake: never Lives independently: Yes Household members: spouse Marital status: Current occupational status: disabled Current gender identity: Male Physical Exam Const: COMMON NORMALS: no acute distress, patient oriented x3 and healthy appearing HENMT: COMMON NORMALS: normocephalic and atraumatic HEAD & SCALP: normocephalic and atraumatic Eye: COMMON NORMALS: Equal, round and reactive pupils present and EOMs intact bilaterally PUPIL: Yes Equal, round and reactive pupils present Neck/C-Spine: COMMON NORMALS: full ROM and supple Chest: COMMONS NORMALS: normal inspection of the chest and normal palpation of entire chest wall Resp: COMMON NORMALS: normal respiratory effort, No retractions, No use of accessory muscles and clear to auscultation bilaterally AUSCULTATION: clear to auscultation bilaterally Cardio: COMMON NORMALS: regular rate, regular rhythm and No murmurs present (Cardio) RATE: regular rate RHYTHM: regular rhythm GI: COMMON NORMALS: Soft to palpation and no masses PALPATION: Yes Soft to palpation OTHER: Diffuse abdominal tenderness with slight abdominal distention Extremity: COMMON NORMALS: normal to inspection and full ROM Neuro: COMMON NORMALS: patient oriented x3, moves all extremities and no focal motor deficits Psych: COMMON NORMALS: mental status grossly normal, Normal thought process present and cooperative THOUGHT PROCESS: Normal thought process present Skin: COMMON NORMALS: no rashes or lesions noted and no wounds GENERAL SKIN EXAM: no rashes or lesions noted Course Vital Signs: Vital signs: Vital Signs Temperature 97.1 F L 02/16/21 19:21 Pulse Rate 113 H 02/16/21 19:21 Respiratory Rate 18 02/16/21 19:21 Blood Pressure 176/92 02/16/21 19:21 Pulse Oximetry 100 02/16/21 19:21 MDM - SOB/Dyspnea MDM Narrative: Medical decision making narrative: Patient presents with abdominal pain. His CT had no acute findings he does have an elevated lactate and white count. Patient does not have a rigid abdomen but he is quite tender. Still concerned of a possible ischemic bowel will start him on antibiotics. I spoke to hospitalist and surgeon will admit to monitor him and trend his white count and lactate. Lab Data: Labs: Lab Results 02/16/21 02/16/21 02/16/21 Range/Units 19:50 19:50 19:50 WBC 17.6 H (4.0-10.0) 10^3/ uL RBC 5.46 H (4.1-5.3) 10^6/u L Hgb 16.4 (11.7-16.6) g/dL Hct 47.5 (42.0-52.0) % MCV 87.0 (80-94) fL MCH 30.0 (28.0-34.0) pg MCHC 34.5 (30.0-36.0) g/dL RDW 13.2 (12.1-15.1) % Plt Count 234 (130-400) 10^3/c mm MPV 11.3 H (7.4-10.4) fL Neut % (Auto) 77.5 % Lymph % (Auto) 18.7 % Carolina % (Auto) 2.8 % Eos % (Auto) 0.2 % Baso % (Auto) 0.3 % Neut # (Auto) 13.61 H (1.8-7.7) 10^3/u L Lymph # (Auto) 3.3 (0.8-4.8) 10^3/u L Carolina # (Auto) 0.5 (0.2-0.9) 10^3/u L Eos # (Auto) 0.0 (0.0-0.8) 10^3/u L Baso # (Auto) 0.1 (0.0-0.1) 10^3/u L Nucleated RBC % (a uto) 0 % Nucleated RBCs # 0.0 /100WBC Specimen Type Sample Site ABG pH (7.35-7.45) ABG pCO2 (35-45) mmHg ABG pO2 (80.0-100.0) mmH g ABG HCO3 (22-26) mmol/L ABG Base Excess (-2.0-2.0) mmol/ L Jonathan Test Hematocrit (42-52) % O2 Delivery Device FiO2 % Handstitching Machine Armhole Feller ID Sodium Cancelled Potassium Cancelled Chloride Cancelled Carbon Dioxide Cancelled Anion Gap Cancelled BUN Cancelled Creatinine Cancelled GFR Calculation Cancelled Glucose Cancelled Calculated Osmolal ity Cancelled Lactate (0.5-2.2) mmol/L Calcium Cancelled Total Bilirubin Cancelled AST Cancelled ALT Cancelled Alkaline Phosphata se Cancelled Troponin T Baselin e Cancelled Total Protein Cancelled Albumin Cancelled Globulin Cancelled Lipase Cancelled 02/16/21 02/16/21 02/16/21 Range/Units 20:32 20:32 20:32 WBC (4.0-10.0) 10^3/ uL RBC (4.1-5.3) 10^6/u L Hgb (11.7-16.6) g/dL Hct (42.0-52.0) % MCV (80-94) fL MCH (28.0-34.0) pg MCHC (30.0-36.0) g/dL RDW (12.1-15.1) % Plt Count (130-400) 10^3/c mm MPV (7.4-10.4) fL Neut % (Auto) % Lymph % (Auto) % Carolina % (Auto) % Eos % (Auto) % Baso % (Auto) % Neut # (Auto) (1.8-7.7) 10^3/u L Lymph # (Auto) (0.8-4.8) 10^3/u L Carolina # (Auto) (0.2-0.9) 10^3/u L Eos # (Auto) (0.0-0.8) 10^3/u L Baso # (Auto) (0.0-0.1) 10^3/u L Nucleated RBC % (a uto) % Nucleated RBCs # /100WBC Specimen Type Sample Site ABG pH (7.35-7.45) ABG pCO2 (35-45) mmHg ABG pO2 (80.0-100.0) mmH g ABG HCO3 (22-26) mmol/L ABG Base Excess (-2.0-2.0) mmol/ L Jonathan Test Hematocrit (42-52) % O2 Delivery Device FiO2 % Handstitching Machine Armhole Feller ID Sodium 133 L Potassium 3.4 L Chloride 95 L Carbon Dioxide 20 L Anion Gap 21.4 H BUN 9 Creatinine 1.1 GFR Calculation 68.8 L Glucose 196 H Calculated Osmolal ity 280 L Lactate 5.1 H* (0.5-2.2) mmol/L Calcium 9.6 Total Bilirubin 0.6 AST 21 ALT 34 Alkaline Phosphata se 209 H Troponin T Baselin e 23 H Total Protein 7.1 Albumin 4.4 Globulin 2.7 Lipase 14 02/16/21 Range/Units 21:18 WBC (4.0-10.0) 10^3/ uL RBC (4.1-5.3) 10^6/u L Hgb (11.7-16.6) g/dL Hct (42.0-52.0) % MCV (80-94) fL MCH (28.0-34.0) pg MCHC (30.0-36.0) g/dL RDW (12.1-15.1) % Plt Count (130-400) 10^3/c mm MPV (7.4-10.4) fL Neut % (Auto) % Lymph % (Auto) % Carolina % (Auto) % Eos % (Auto) % Baso % (Auto) % Neut # (Auto) (1.8-7.7) 10^3/u L Lymph # (Auto) (0.8-4.8) 10^3/u L Carolina # (Auto) (0.2-0.9) 10^3/u L Eos # (Auto) (0.0-0.8) 10^3/u L Baso # (Auto) (0.0-0.1) 10^3/u L Nucleated RBC % (a uto) % Nucleated RBCs # /100WBC Specimen Type Arterial Sample Site Radial, left ABG pH 7.52 H (7.35-7.45) ABG pCO2 22.6 L (35-45) mmHg ABG pO2 83.8 (80.0-100.0) mmH g ABG HCO3 18.4 L (22-26) mmol/L ABG Base Excess -2.3 L (-2.0-2.0) mmol/ L Jonathan Test Pos Hematocrit 47.0 (42-52) % O2 Delivery Device Room air FiO2 21.0 % Handstitching Machine Armhole Feller ID Harkr Sodium Potassium Chloride Carbon Dioxide Anion Gap BUN Creatinine GFR Calculation Glucose Calculated Osmolal ity Lactate (0.5-2.2) mmol/L Calcium Total Bilirubin AST ALT Alkaline Phosphata se Troponin T Baselin e Total Protein Albumin Globulin Lipase Imaging Data^: CXR: Attestation: I personally reviewed and interpreted this imaging study as follows: My impression: no acute abnormality EKG Data^: EKG 1: Attestation: I personally reviewed and interpreted this EKG as follows: EKG Interpretation Date: 02/16/21 EKG interpretation time: 19:40 Interpretation: nsr hr [address] elevation twave inversion in v1-v3 unchanged 12/04/20 qrs 117 qtc 450 Discharge Plan Discharge Admit Provider: Tulio Davis Coding Level of Care Code ED Exhauster Engineer for Chg Fwd Exam Comprehensive
[2021-02-16] MEDS: ondansetron 2 mg/ML SDV 2 mL 4 MG IVP (20:22)
[2021-02-16] MEDS: morphine 4 mg/mL SDV 1 mL IVP (20:23)
[2021-02-16] MEDS: sodium chloride 0.9% 1,000 ML 999 ML IV ×2 (20:25→21:17)
[2021-02-16] MEDS: metoclopramide 5 mg/mL SDV 2 mL 10 MG IVP (20:46)
[2021-02-16] MEDS: diphenhydrAMINE 50 mg/mL SDV 1mL IVP (20:47)
[2021-02-16 20:53] LABS: Alanine Aminotransferase 34 U/L (0-41); Albumin Level 4.4 g/dL (3.5-5.2); Alkaline Phosphatase 209 IU/L (40-130); Anion Gap 21.4 (5-19); Aspartate Amino Transferase 21 U/L (0-40); Blood Urea Nitrogen 9 mg/dL (6-20); Calcium 9.6 mg/dL (8.5-10.5); Carbon Dioxide 20 mmol/L (22-29); Chloride 95 mmol/L (98-107); Creatinine Clr Calc Pharmacy 75.8148; Globulin 2.7 g/dL (1.3-4.6); Glomerular Filtration Rate 68.8 mL/min (90-130); Glucose 196 mg/dL (65-115); Lipase 14 U/L (13-60); Osmolality Calculated 280 mOsm/kg (285-295); Potassium 3.4 mmol/L (3.5-5.1); Sodium 133 mmol/L (136-145); Total Bilirubin 0.6 mg/dL (0.15-1.2); Total Protein 7.1 g/dL (6.6-8.7)
[2021-02-16 20:54] LABS: Troponin(5th) Baseline 23 ng/L (0-15)
[2021-02-16 21:04] LABS: Lactate (Lactic Acid level) 5.1 mmol/L (0.5-2.2)
--- NOTE | 2021-02-16 21:15 | PM.HP ---
Providers/Chief Complaint Primary Care Provider: Madeline Shields DO Chief Complaint: SOB/VOMITING History of Present Illness Troy Goode is a 60 year old male who has multiple comorbid conditions, was admitted in November for management of encephalopathy and hypothermia with concern of frostbite, he was intubated however he was successfully extubated, encephalopathy improved and he was discharged home in stable condition, presented today with chief complaint of abdominal pain. Patient is stating that his symptoms started 5 days ago with sinus infection he has been having lot of postnasal drip which made him very nauseous, he was not getting better at all, he did not notice any fever, chest pain worsening shortness of breath, at baseline he uses 3 L of oxygen on as-needed basis, will smoke 3 cigarettes a day. His symptoms worsened today he started vomiting, in total he has had 7 episodes of emesis. His last bowel movement was today which she is describing small quantity he is denying constipation or worsening of abdominal pain. He is describing his abdominal discomfort as soreness because of dry heaves. Previous colonoscopies as per the patient were unremarkable. His blood sugar today was 122. He is off glipizide because of hypoglycemic event in November, currently on Jardiance. Please note duplex scan of lower extremities revealed RENEE 0.4 suggestive of severe obstructive arterial disease on right side, total occlusion of distal iliac artery on the left side with good collaterals however sluggish flow in posterior tibial artery with no flow in dorsalis pedis,Carotid Doppler revealed 50 to 69% stenosis left common carotid bifurcation, 50% stenosis of right common carotid bifurcation, he carries diagnosis of grade 2 diastolic dysfunction preserved ejection fraction 55% He has followed up with Dr. Chino for his peripheral vascular disease he is expecting him to follow-up in 6 months no acute intervention recommended by him. Follows up with Dr. Terrell for BPH and requires intermittent self-catheterization on as-needed basis. Diagnostics in the ER revealed leukocytosis, lactic acidemia, normal creatinine, CT abdomen pelvis did not reveal any acute mesenteric ischemia findings however consistent with arterial sclerosis with no bowel edema, mild to moderate constipation, chest x-ray unremarkable, EKG showing sinus rhythm first-degree AV block with right bundle branch incomplete block, no previous history of A. fib, ABG showed respiratory alkalosis, BMP consistent with hypokalemia, normal kidney function, no signs of pancreatitis, previous B12 low normal, TSH normal Review of Systems Const: Reports: body aches and fatigue; Denies: fever(s) Eyes: Denies: change in vision ENMT: Reports: throat pain Card: Reports: dyspnea on exertion; Denies: chest pain, edema, syncope or orthopnea Resp: Reports: dyspnea and non-productive cough GI: Reports: abdominal pain, nausea and vomiting; Denies: diarrhea or constipation : Denies: flank pain Musc: Denies: neck pain Skin/Breast: Denies: rash Neuro: Denies: headache(s) Psych: Denies: anxiety Endo: Denies: polyuria Sudeep/Lymph: Denies: easy bruising All/Imm: Denies: urticaria Medications/Allergies Home Medications Medication Instructions Recorded Confirmed Last Taken Type ferrous sulfate 324 mg (65 mg 324 mg PO DAILY@0900 tab 10/23/19 02/16/21 12/02/20 History iron) tablet,delayed release cholecalciferol (vitamin D3) 1,250 5,000 unit PO DAILY@0900 cap 11/06/19 02/16/21 12/02/20 History mcg (50,000 unit) capsule blood sugar diagnostic #50 each 12/05/19 02/16/21 Unknown Rx pen needle, diabetic 29 gauge x #50 each 12/22/19 02/16/21 Unknown Rx 1/2 albuterol sulfate 90 mcg/actuation 2 puff INHALATION Q6H PRN #8.5 gm 01/16/20 02/16/21 Unknown Rx aerosol inhaler blood-glucose meter #1 each 01/19/20 02/16/21 Unknown Rx albuterol sulfate 2.5 mg INHALATION Q4H PRN 05/25/20 02/16/21 Unknown History furosemide [Lasix] 20 mg PO DAILY@0900 12/03/20 02/16/21 02/15/21 History blood sugar diagnostic #100 each 12/21/20 02/16/21 Unknown Rx morphine 15 mg immediate release 15 mg PO .FIVES TIMES DAILY PRN 30 01/07/21 02/16/21 02/15/21 Rx tablet Days #150 tab morphine 60 mg tablet,extended 60 mg PO Q12H 30 Days #90 tab 01/07/21 02/16/21 02/15/21 Rx release dulaglutide 1.5 mg/0.5 mL 1.5 mg SUBCUT .ONCE WEEKLY #2 ml 01/13/21 02/16/21 02/13/21 Rx subcutaneous pen injector metoprolol tartrate 25 mg tablet 12.5 mg PO BID@0900,2100 tab 02/09/21 02/16/21 02/16/21 History ondansetron HCl 4 mg tablet 4 mg PO Q6H #12 tab 02/09/21 02/16/21 02/16/21 Rx blood-glucose meter #200 ea 02/10/21 02/16/21 Unknown Rx aspirin 81 mg PO DAILY@0900 02/16/21 02/16/21 02/16/21 History atorvastatin 40 mg PO BEDTIME@209902/16/21 02/16/21 02/15/21 History azelastine 2 spray INTRANASAL BID@0900,209902/16/21 02/16/21 02/16/21 History baclofen 10 mg PO TID@09,,02/16/21 02/16/21 02/16/21 History duloxetine 60 mg PO BID@0900,209902/16/21 02/16/21 02/16/21 History empagliflozin [Jardiance] 25 mg PO DAILY@0900 02/16/21 02/16/21 02/16/21 History pregabalin [Lyrica] 50 mg PO BID@0900,209902/16/21 02/16/21 02/15/21 History tamsulosin 0.4 mg PO DAILY@0900 02/16/21 02/16/21 02/16/21 History trazodone 100 mg PO BID@0900,209902/16/21 02/16/21 02/15/21 History Allergies Allergy/AdvReac Type Severity Reaction Status Date / Time amitriptyline Allergy ALGY-Conges Verified 02/09/21 13:27 sonia metformin Allergy ADR-Diarrhe Verified 02/09/21 13:27 a temazepam Allergy ALGY-Conges Verified 02/09/21 13:27 sonia PFSH Acute PFSH: Medical History Allergic rhinosinusitis Chronic neck and back pain Controlled type 2 diabetes mellitus, without long-term current use of insulin COPD, moderate Dyslipidemia Encounter for long-term opiate analgesic use Enrolled in chronic care management Essential (primary) hypertension Gastritis Heart failure with preserved ejection fraction Echo 03/2020 EF 55%, Grade II diastolic dysfunction Hypothyroidism, unspecified Incomplete bladder emptying Iron deficiency anemia Neurogenic bladder PAD (peripheral artery disease) Primary osteoarthritis of left knee Primary osteoarthritis of right knee Tear of medial collateral ligament of left knee Vitamin D deficiency Surgical History H/O circumcision H/O colonoscopy 11/20/2016 H/O esophagogastroduodenoscopy 2014 H/O knee surgery H/O oral surgery H/O shoulder surgery left to remove mass History of back surgery Family History Father Diabetes Stroke Bleeding disorder Mother Diabetes Cancer SKIN Other CAD (coronary artery disease) Lung disease Denies family history of Anesthesia complication Social History Smoking and tobacco status: current every day smoker cigarettes Packs smoked per day: 0.25 Years cigarettes smoked: 45 Quit status (tobacco): has tried quititng Smoking risk assessment/counseling performed?: Yes Alcohol intake: never Lives independently: Yes Household members: spouse Marital status: Current occupational status: disabled Current gender identity: Male Vitals/I&O/Wt Last Vital Signs Temp 97.1 F L 02/16/21 19:21 Pulse 113 H 02/16/21 19:21 Resp 18 02/16/21 19:21 BP 176/92 02/16/21 19:21 Pulse Ox 100 02/16/21 19:21 Weight last 48 hrs Weight 83.915 kg Physical Exam Narrative: EXAM NARRATIVE: Very pleasant cooperative middle-aged male Was in left lateral position when I entered the room, was not complaining of active chest pain shortness of breath abdominal pain, he was saturating well on room air Abdomen soft, nontender on deep palpation, bowel sounds hyperactive, central obesity S1, S2 no murmur appreciated no active signs of heart failure EOMI, PERRLA Bilateral breath sounds diminished no active wheezing or stridor No carotid bruit appreciated No neurological deficits EOMI, PERRLA GCS 15 awake alert oriented x3 Lower extremity cold, weak dorsalis pedis pulses bilaterally no active signs of ischemic ulcers, left lateral malleolar laceration without any active signs of cellulitis Appropriate mood and affect Data : 02/16/21 19:50 02/16/21 20:32 A&P Assessment and plan (1) Chronic mesenteric ischemia: Status: Acute (2) Hypokalemia: Status: Acute (3) Dehydration: Status: Acute (4) Sepsis: Status: Acute (5) PAD (peripheral artery disease): Status: Acute (6) Seasonal allergies: Status: Chronic (7) Incomplete bladder emptying: Status: Chronic (8) COPD, moderate: Status: Chronic (9) Nicotine dependence, cigarettes, with unspecified nicotine-induced disorders: Status: Chronic Additional A&P Information Mesenteric ischemia Sepsis criteria met with tachycardia, leukocytosis and high lactic acid Considering peripheral vascular disease, type 2 diabetes with complications I am suspecting his symptoms are secondary to mesenteric ischemia however CT abdomen pelvis did not show any bowel edema or acute signs of ischemia, lipase normal, atrophic pancreas, portal vein patent, I would hydrate him with D5 half-normal saline and avoid anticoagulation for now, EKG showing sinus rhythm no previous history of A. fib Keep him n.p.o., start Zosyn antibiotic Dr. Sethi consulted and notified CT abdomen pelvis consistent with mild to moderate stool burden however patient does not feel constipated his last bowel movement was today which was small caliber, Hypokalemia secondary to emesis: Potassium repleted Check magnesium level Peripheral arterial disease No active signs of ischemic ulcers, he is currently following with Dr. Harper, patient is stating that he is not very mobile and active at home, no resting lower extremity pain for now, however temperature is cold with very mild skin mottling of great right toe, Incomplete bladder emptying with underlying BPH Patient follows with Dr. Terrell and use self-catheterization technique on as needed basis However in the ER he was able to void urine without any catheterization, will do bladder scan as needed Continue tamsulosin Nicotine dependence: Patient is willing to quit he has brought himself down to 3 cigarettes a day Full code N.p.o. except medications DVT prophylaxis Lovenox Attestations Medical Necessity Statement*: Anticipating stay in the hospital cross more than 2 midnights for sepsis, mesenteric ischemia dehydration and needing IV fluids and antibiotics Time Spent in Patient Care: (>than 50% of time spent in counselling and/or direct pt care on unit). 40mins Coding Level of Care Code Acute Family Independence Case Manager for Chg Fwd Diagnoses Chronic mesenteric ischemia K55.1 Hypokalemia E87.6 Dehydration E86.0 Sepsis A41.9 PAD (peripheral artery disease) I73.9 Seasonal allergies J30.2 Incomplete bladder emptying R33.9 COPD, moderate J44.9 Nicotine dependence, cigarettes, with unspecified nicotine-induced disorders F17.219
[2021-02-16] MEDS: piperacillin-tazobactam 3.375 GM in sodium chloride 0.9% (plus) 50 ML IV (21:16)
[2021-02-16 21:27] LABS: ABG PCO2 22.6 mmHg (35-45); ABG PH Result 7.52 (7.35-7.45); Base Excess ABG -2.3 mmol/L (-2.0-2.0); Blood Gas Allen Test Pos; Blood Gas Sample Type Arterial; HCO3 ABG 18.4 mmol/L (22-26); PO2 ABG 83.8 mmHg (80.0-100.0)
[2021-02-16 21:28] LABS: Blood Gas Operator Identificat HARKR; Blood Gas Sample Site Radial, left; Oxygen Device ROOM AIR
--- NOTE | 2021-02-16 21:37 | ECG_ITS ---
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 Measurements Intervals [place] Rate: 86 P: 224 CO: 126 QRS: -45 QRSD: 111 T: 31 QT: 429 QTc: 514 Interpretive Statements SINUS RHYTHM LEFT AXIS DEVIATION [QRS AXIS < -30] INCOMPLETE RIGHT BUNDLE BRANCH BLOCK [90+ ms QRS DURATION, TERMINAL R IN V1/V2, 40+ ms S IN I/aVL/V4/V5/V6] ST DEVIATION AND MODERATE T-WAVE ABNORMALITY, CONSIDER ANTERIOR ISCHEMIA [-0.1+ mV T WAVE IN V3/V4] Compared to ECG 02/16/2021 19:40:39 No significant changes Electronically Signed On 02-17-2021 10:20:54 CDT by Ted Nath M.D. [id number] f
[2021-02-16 22:23] LABS: Add Urine Microscopic? NO; Charge for UA Resulting for Rev
[2021-02-16 22:25] LABS: Bilirubin Urine Neg (Negative); Blood Urine Neg (Negative); Glucose Urine UA 4+ (Normal); Ketones Urine Negative (Negative); Leukocyte Esterase Urine Negative (Negative); Nitrate Urine Negative (Negative); Protein Urine Neg (Negative); Urine Appearance Clear (CLEAR); Urine Color Yellow (Yellow); Urobilinogen Urine Norm (Negative); pH Urine 6.5 (5-7)
[2021-02-16 22:32] LABS: Troponin 5 2HR 22.92 ng/L (0-15)
[2021-02-16 22:34] LABS: Troponin 5 2HR Delta -0.08 ABS# (0-10)
[2021-02-16 22:34] LABS: Amphetamines Screen Urine Negative (Negative); Barbiturates Screen Urine Negative (Negative); Benzodiazepines Screen Urine Negative (Negative); Cocaine Screen Urine Negative (Negative); Opiate Screen Urine Positive (Negative); PCP Screen Urine Negative (Negative); THC Screen Urine Negative (Negative)
[2021-02-16 22:48] VITALS: BP 189/96; PULSE 99; RESP 21; TEMP 37; O2SAT 100
[2021-02-16 22:59] LABS: Glucose Point of Care 163 mg/dL (70-110)
[2021-02-16] MEDS: enoxaparin 40 mg/0.4 mL Syringe SUBCUT (23:10)
[2021-02-16] MEDS: dextrose 5%-sod chloride 0.45% 1,000 ML 75 ML IV (23:10)
[2021-02-17] VITALS (10 sets, daily range): BP systolic 121–184; BP diastolic 79–97; PULSE 80–119; RESP 16–22; TEMP 36.7–37.5; O2SAT 94–100
[2021-02-17] MEDS: ondansetron 2 mg/ML SDV 2 mL 4 MG IVP ×3 (00:59→19:28)
--- NOTE | 2021-02-17 01:37 | ECG_ITS ---
[facility] ED Test Date: 2021-02-17 Pat Name: Troy Goode Department: Room: 278 Gender: Male Polarity Tester: : 1960 Requested By: Priscilla Wolfe Order Number: [id number] Rossy MD: Roseanne Dunne M.D. Measurements Intervals [place] Rate: 92 P: 222 MN: 118 QRS: -46 QRSD: 112 T: 33 QT: 398 QTc: 494 Interpretive Statements SINUS RHYTHM WITH SHORT MN INTERVAL MARKED LEFT AXIS DEVIATION [QRS AXIS < -30] INCOMPLETE RIGHT BUNDLE BRANCH BLOCK ST DEVIATION AND MODERATE T-WAVE ABNORMALITY, CONSIDER ANTERIOR ISCHEMIA Compared to ECG 02/16/2021 21:38:57 Short MN interval now present T-wave abnormality still present Possible ischemia still present Electronically Signed On 02-18-2021 7:48:09 CDT by Roseanne Dunne M.D. [id number]
[2021-02-17 02:33] LABS: Basophils # 0.1 10^3/uL (0.0-0.1); Basophils % 0.3 %; Hematocrit 44.8 % (42.0-52.0); Lymphocytes # 3.2 10^3/uL (0.8-4.8); Lymphocytes % 13.8 %; Mean Corpuscular HGB Conc 33.5 g/dL (30.0-36.0); Mean Corpuscular Hemoglobin 29.8 pg (28.0-34.0); Mean Corpuscular Volume 89.1 fL (80-94); Mean Platelet Volume 11.4 fL (7.4-10.4); Monocytes # 1.1 10^3/uL (0.2-0.9); Monocytes % 4.8 %; Neutrophils # 18.53 10^3/uL (1.8-7.7); Neutrophils % 80.5 %; Nucleated Red Blood Cells % 0 %; Platelet Count 215 10^3/cmm (130-400); Red Blood Count 5.03 10^6/uL (4.1-5.3); Red Cell Distribution Width 13.3 % (12.1-15.1)
[2021-02-17] MEDS: piperacillin-tazobactam 3.375 GM in sodium chloride 0.9% (plus) 50 ML IV ×3 (03:16→17:34)
[2021-02-17] MEDS: lidocaine 1% 5 ML in potassium chloride premix 100 ML 25 ML IV ×2 (05:22→10:13)
[2021-02-17] MEDS: HYDROmorphone 1 mg/mL INJ 1 mL 0.4 MG IVP ×3 (05:23→19:35)
[2021-02-17] MEDS: metoclopramide 5 mg/mL SDV 2 mL IVP ×2 (05:34→21:22)
[2021-02-17 06:27] LABS: Glucose Point of Care 203 mg/dL (70-110)
[2021-02-17] MEDS: metoprolol tartrate 25 mg Tablet 12.5 MG PO ×2 (08:39→21:26)
[2021-02-17] MEDS: tamsulosin 0.4 mg Capsule PO (08:40)
[2021-02-17] MEDS: sennosides-docusate Tablet 1 TAB PO (08:40)
--- NOTE | 2021-02-17 11:04 | P.CONIM_ITS ---
Providers/Reason For Consult Consulting Physican/Specialty*: General Surgery Latrell Sethi MD Reason for Consult*: Abdominal pain, nausea and vomiting. Attending Physician: Adelina Seth MD Primary Care Provider: Madeline Shields DO History of Present Illness History of Present Illness Troy Goode is a 60 year old male who says he has been ill at home for about a week. He has been having episodes of nausea and vomiting which he attributes to bad allergies and sinus drainage. He says he got to the point where his stomach started hurting 2 or 3 days ago because he was vomiting and retching so much. He denies any fevers or chills. He says he continues to pass flatus and his bowel habits have not changed. He finally came to the emergency room because he was tired of it, and a CAT scan did not reveal any acute abnormalities. The patient was admitted for further management. Today, he says he already feels better. His vomiting has resolved and he says his abdomen no longer hurts. He is starving and would like something to eat. Review of Systems General: Reports: 10 or more systems reviewed and unremarkable except in HPI and below Const: Reports: fatigue; Denies: fever(s) or chills ENMT: Reports: post nasal drip GI: Reports: abdominal pain, nausea and vomiting; Denies: change in bowel habits Meds/Allergies Home Medications and Allergies Home Medications Medication Instructions Recorded Confirmed Last Taken Type ferrous sulfate 324 mg (65 mg 324 mg PO DAILY@0900 tab 10/23/19 02/16/21 12/02/20 History iron) tablet,delayed release cholecalciferol (vitamin D3) 1,250 5,000 unit PO DAILY@0900 cap 11/06/19 02/16/21 12/02/20 History mcg (50,000 unit) capsule blood sugar diagnostic #50 each 12/05/19 02/16/21 Unknown Rx pen needle, diabetic 29 gauge x #50 each 12/22/19 02/16/21 Unknown Rx 1/2 albuterol sulfate 90 mcg/actuation 2 puff INHALATION Q6H PRN #8.5 gm 01/16/20 02/16/21 Unknown Rx aerosol inhaler blood-glucose meter #1 each 01/19/20 02/16/21 Unknown Rx albuterol sulfate 2.5 mg INHALATION Q4H PRN 08/04/20 04/28/21 Unknown History furosemide [Lasix] 20 mg PO DAILY@0900 12/03/20 02/16/21 02/15/21 History blood sugar diagnostic #100 each 12/21/20 02/16/21 Unknown Rx morphine 15 mg immediate release 15 mg PO .FIVES TIMES DAILY PRN 30 01/07/21 02/16/21 02/15/21 Rx tablet Days #150 tab morphine 60 mg tablet,extended 60 mg PO Q12H 30 Days #90 tab 01/07/21 02/16/21 02/15/21 Rx release dulaglutide 1.5 mg/0.5 mL 1.5 mg SUBCUT .ONCE WEEKLY #2 ml 01/13/21 02/16/21 02/13/21 Rx subcutaneous pen injector metoprolol tartrate 25 mg tablet 12.5 mg PO BID@0900,2100 tab 02/09/21 02/16/21 02/16/21 History ondansetron HCl 4 mg tablet 4 mg PO Q6H #12 tab 02/09/21 02/16/21 02/16/21 Rx blood-glucose meter #200 ea 02/10/21 02/16/21 Unknown Rx aspirin 81 mg PO DAILY@0900 02/16/21 02/16/21 02/16/21 History atorvastatin 40 mg PO BEDTIME@209902/16/21 02/16/21 02/15/21 History azelastine 2 spray INTRANASAL BID@0900,209902/16/21 02/16/21 02/16/21 History baclofen 10 mg PO TID@02/16/21 02/16/21 02/16/21 History duloxetine 60 mg PO BID@0900,209902/16/21 02/16/21 02/16/21 History empagliflozin [Jardiance] 25 mg PO DAILY@0900 02/16/21 02/16/21 02/16/21 History pregabalin [Lyrica] 50 mg PO BID@0900,209902/16/21 02/16/21 02/15/21 History tamsulosin 0.4 mg PO DAILY@0900 02/16/21 02/16/21 02/16/21 History trazodone 100 mg PO BID@0900,2100 02/16/21 02/16/21 02/15/21 History Allergies Allergy/AdvReac Type Severity Reaction Status Date / Time amitriptyline Allergy ALGY-Conges Verified 02/09/21 13:27 sonia metformin Allergy ADR-Diarrhe Verified 02/09/21 13:27 a temazepam Allergy ALGY-Conges Verified 02/09/21 13:27 sonia Current Medications Current Medications Generic Name Dose Route Start Last Admin Trade Name Freq PRN Reason Stop Dose Admin Enoxaparin Sodium 40 mg 02/16/21 22:41 02/16/21 23:10 Enoxaparin 40 Mg/0.4 Ml Syringe SUBCUT 40 mg Q24H FREDO Administration Hydromorphone HCl 0.4 mg 02/17/21 04:58 02/17/21 10:03 Hydromorphone 1 Mg/Ml Inj 1 Ml IVP 0.4 mg Q4H PRN Administration pain Dextrose/Sodium Chloride 1,000 mls @ 75 mls/hr 02/16/21 22:41 02/16/21 23:10 Dextrose 5%-Sod Chloride 0.45% IV 75 mls/hr .[id number] FREDO Administration Lidocaine HCl 5 ml/ Potassium 105 mls @ 25 mls/hr 02/17/21 05:00 02/17/21 10:13 Chloride IV 02/17/21 12:59 25 mls/hr Q4H FREDO Administration Piperacillin Sod/Tazobactam 50 mls @ 12.5 mls/hr 02/17/21 09:00 02/17/21 08:40 Sod 3.375 gm/ Sodium Chloride IV 12.5 mls/hr Q8H FREDO Administration Protocol Insulin Aspart 0 unit 02/17/21 08:00 02/17/21 08:39 Insulin Aspart 100 Unit/1 Ml SUBCUT 6 unit WM&BEDTIME FREDO Administration Protocol Metoprolol Tartrate 12.5 mg 02/17/21 09:00 02/17/21 08:39 Metoprolol Tartrate 25 Mg Tablet PO 12.5 mg BID@0900,2100 FREDO Administration Ondansetron HCl 4 mg 02/17/21 00:48 02/17/21 10:04 Ondansetron 2 Mg/Ml Sdv 2 Ml IVP 4 mg Q6H PRN Administration NAUSEA AND VOMITING Senna/Docusate Sodium 1 tab 02/17/21 09:00 02/17/21 08:40 Sennosides-Docusate Tablet PO 1 tab DAILY FREDO Administration Tamsulosin HCl 0.4 mg 02/17/21 09:00 02/17/21 08:40 Tamsulosin 0.4 Mg Capsule PO 0.4 mg DAILY@0900 FREDO Administration PFSH Acute PFSH: Medical History (Updated 02/17/21 @ 11:11 by Latrell Sethi MD) Allergic rhinosinusitis Chronic neck and back pain Controlled type 2 diabetes mellitus, without long-term current use of insulin COPD, moderate Dyslipidemia Encounter for long-term opiate analgesic use Enrolled in chronic care management Essential (primary) hypertension Gastritis Heart failure with preserved ejection fraction Echo 03/2020 EF 55%, Grade II diastolic dysfunction Hypothyroidism, unspecified Incomplete bladder emptying Iron deficiency anemia Neurogenic bladder PAD (peripheral artery disease) Primary osteoarthritis of left knee Primary osteoarthritis of right knee Tear of medial collateral ligament of left knee Vitamin D deficiency Surgical History (Updated 02/17/21 @ 11:13 by Latrell Sethi MD) H/O circumcision H/O colonoscopy 11/20/2016 H/O esophagogastroduodenoscopy 2014 H/O oral surgery Teeth extracted History of back surgery Lumbar laminectomy x 2 Family History Father Diabetes Stroke Bleeding disorder Mother Diabetes Cancer SKIN Other CAD (coronary artery disease) Lung disease Denies family history of Anesthesia complication Social History (Updated 02/17/21 @ 11:14 by Latrell Sethi MD) Smoking and tobacco status: current every day smoker cigarettes Packs smoked per day: 0.25 Years cigarettes smoked: 45 [ Other cigarette details: Used to smoke a pack of cigarettes a day, trying to cut down and quit ] Quit status (tobacco): has tried quititng Smoking risk assessment/counseling performed?: Yes Alcohol intake: never Lives independently: Yes Household members: spouse Marital status: Current occupational status: disabled Current gender identity: Male Vitals/I&O/Wt Last Vital Signs Temp 98.0 F 02/17/21 08:00 Pulse 89 02/17/21 08:43 Resp 18 02/17/21 10:03 BP 184/97 02/17/21 08:00 Pulse Ox 96 02/17/21 08:43 02/16/21 02/17/21 02/17/21 22:59 06:59 14:59 Intake Total 2400 / 2400 105 / 105 Output Total 675 / 675 750 / 750 Balance 1725 / 1725 -645 / -645 Weight last 48 hrs Weight 185 lb Physical Exam Narrative: EXAM NARRATIVE: The patient was examined in his room. He does not appear to be in any distress and is seated in a chair watching TV. The pupils are equal. No carotid bruits are heard. The lungs are clear anteriorly. The heart is regular. The abdomen is moderately to severely obese but is soft and reveals good bowel sounds. He has minimal scattered tenderness on exam. No masses are palpated. Extremities reveal no edema. Neurologically the patient appears to be grossly intact. Data Imaging^: CT Abd/Pel: Radiologist's impression: CT scan abdomen/pelvis 02/16/2021 IMPRESSION: 1. Currently no visible evidence for acute abdominal or pelvic pathologic process. 2. Constipation. A&P Assessment and plan (1) Abdominal pain: The patient's CAT scan was read as normal in terms of any acute abn ormalities. I see some retained stool throughout almost the entire colon and a mildly dilated loop of jejunum in the left upper quadrant of uncertain significance. He already feels better today and continues to pass flatus. He says his bowel habits have not changed even though he does seem to have some stool retention on his CAT scan. He is on some laxative tablets currently. His abdominal exam is not currently concerning, but his white blood cell count interestingly remains elevated. The patient would like to eat. I will allow him a consistent carbohydrate diet, as there does not appear to be a significant abdominal issue at present. Status: Acute (2) Nausea and vomiting: Seems to have resolved at the moment. Status: Acute Consult Attestations Medical Necessity Statement: See admitting service's notation. 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
[2021-02-17 11:08] LABS: Glucose Point of Care 150 mg/dL (70-110)
[2021-02-17] MEDS: dextrose 5%-sod chloride 0.45% 1,000 ML 75 ML IV (12:09)
[2021-02-17] MEDS: pregabalin 50 mg Capsule PO ×2 (13:29→21:25)
[2021-02-17] MEDS: duloxetine 60 mg Capsule PO ×2 (13:29→21:25)
[2021-02-17 14:05] LABS: SARS Covid-2 Antigen Negative (Negative)
--- NOTE | 2021-02-17 15:37 | P.PN_ITS ---
Subjective Subjective: Interval history: WBC count elevated to 23 today from 17, vomiting improving, remained afebrile and hemodynamically stable Medications: Reviewed: Yes Vitals/I&O/Wt Last Vital Signs Temp 98.1 F 02/17/21 11:15 Pulse 80 02/17/21 11:15 Resp 18 02/17/21 11:15 BP 164/90 02/17/21 11:15 Pulse Ox 97 02/17/21 11:15 02/17/21 02/17/21 02/17/21 06:59 14:59 22:59 Intake Total 2400 / 2400 1248.75 / 1248.75 Output Total 675 / 675 750 / 750 Balance 1725 / 1725 498.75 / 498.75 Weight last 48 hrs Weight 83.915 kg Physical Exam Narrative: EXAM NARRATIVE: GEN: Awake, alert and oriented, no acute distress HEENT: persistent post nasal drip noted on exam, sniffling throughout the encoun ter CVS: S1S2 N RS: CTA B/L Abd: Soft, nt/nd , bs+ SKATESMAN: no focal neuro deficits Data : 02/17/21 02:24 02/16/21 20:32 A&P Assessment and plan (1) Chronic mesenteric ischemia: Status: Acute (2) Hypokalemia: Status: Acute (3) Dehydration: Status: Acute (4) Sepsis: Status: Acute (5) PAD (peripheral artery disease): Status: Acute (6) Seasonal allergies: Status: Chronic (7) Incomplete bladder emptying: Status: Chronic (8) COPD, moderate: Status: Chronic (9) Nicotine dependence, cigarettes, with unspecified nicotine-induced disorders: Status: Chronic (10) Sinusitis: Status: Acute Additional A&P Information Mesenteric ischemia suspected overnight, however CT abdomen pelvis did not show any bowel edema or acute signs of ischemia. Abdominal symptoms are compelt samantha resolved this morning. Lactate improving with hydration. Overall ischemia ppears to be less likely. Appreciate surgery recommendations. 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 Post nasal drip in the setting of bacterial or viral etiology can be a cause of abdominal symptoms. Check Covid ag, MRSA PCR WBC increased from 17 to 23, will monitor over the next 24 hrs with abx. Continue empiric Zosyn for now and monitor leukocytosis trend. If persistently elevated, will likely need dedicated PNS imaging to evalute for any underlying abscess Check blood culture Hypokalemia secondary to emesis: Potassium repleted Check magnesium level Incomplete bladder emptying with underlying BPH Patient follows with Dr. Terrell and use self-catheterization technique on as needed basis Nicotine dependence: Patient is willing to quit he has brought himself down to 3 cigarettes a day Chronic pain: continue patient's home medication regimen Full code N.p.o. 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
[2021-02-17 17:10] LABS: Glucose Point of Care 159 mg/dL (70-110)
[2021-02-17] MEDS: morphine ER (12 HR) 30 mg tablet 60 MG PO (17:34)
[2021-02-17 21:05] LABS: Glucose Point of Care 166 mg/dL (70-110)
[2021-02-17] MEDS: enoxaparin 40 mg/0.4 mL Syringe SUBCUT (21:23)
[2021-02-17] MEDS: baclofen 10 mg Tablet PO (21:25)
[2021-02-17] MEDS: trazodone 100 mg Tablet PO (21:26)
[2021-02-17] MEDS: atorvastatin 40 mg Tablet PO (21:26)
[2021-02-18] VITALS (7 sets, daily range): BP systolic 120–143; BP diastolic 74–83; PULSE 67–80; RESP 18; TEMP 36.4–36.7; O2SAT 90–98
[2021-02-18] MEDS: dextrose 5%-sod chloride 0.45% 1,000 ML 75 ML IV (00:45)
[2021-02-18] MEDS: piperacillin-tazobactam 3.375 GM in sodium chloride 0.9% (plus) 50 ML IV ×2 (00:45→09:10)
[2021-02-18] MEDS: morphine ER (12 HR) 30 mg tablet 60 MG PO (04:32)
[2021-02-18 06:17] LABS: Glucose Point of Care 140 mg/dL (70-110)
--- NOTE | 2021-02-18 08:54 | PM.PN ---
Subjective Subjective: Interval history: The patient says his abdomen continues to feel better. He has minimal discomfort. He ate a full breakfast this morning and said that he has had a little bit of nausea but not bad. He continues to pass flatus and stool. Vitals/I&O/Wt Last Vital Signs Temp 97.6 F 02/18/21 08:00 Pulse 76 02/18/21 08:00 Resp 18 02/18/21 08:00 BP 135/83 02/18/21 08:00 Pulse Ox 90 02/18/21 08:00 02/17/21 02/18/21 02/18/21 22:59 06:59 14:59 Intake Total 575 / 2818.75 995 / 2818.75 240 / 240 Output Total 600 / 1350 Balance 575 / 1468.75 395 / 1468.75 240 / 240 Weight last 48 hrs Weight 185 lb Physical Exam Narrative: EXAM NARRATIVE: No significant tenderness on exam. Data : 02/17/21 02:24 02/16/21 20:32 Micro: Microbiology 02/17/21 17:28 Blood Culture - Preliminary Blood SPECIMEN COLLECTED 02/17/21 17:20 Blood Culture - Preliminary Blood SPECIMEN COLLECTED A&P Assessment and plan (1) Abdominal pain: Essentially resolved. The patient is tolerating solid food. I am may not continue to see the patient daily. Please call if I can be of any help. Status: Acute (2) Nausea and vomiting: Minimal nausea remains. Status: Acute Attestations Medical Necessity Statement*: See admitting service's notation. 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
[2021-02-18] MEDS: pregabalin 50 mg Capsule PO (09:09)
[2021-02-18] MEDS: aspirin 81 mg EC Tablet PO (09:09)
[2021-02-18] MEDS: trazodone 100 mg Tablet PO (09:09)
[2021-02-18] MEDS: baclofen 10 mg Tablet PO ×2 (09:09→11:32)
[2021-02-18] MEDS: duloxetine 60 mg Capsule PO (09:09)
[2021-02-18] MEDS: sennosides-docusate Tablet 1 TAB PO (09:09)
[2021-02-18] MEDS: tamsulosin 0.4 mg Capsule PO (09:09)
[2021-02-18] MEDS: metoprolol tartrate 25 mg Tablet 12.5 MG PO (09:09)
[2021-02-18 10:21] LABS: Basophils # 0.1 10^3/uL (0.0-0.1); Basophils % 0.9 %; Eosinophils # 0.2 10^3/uL (0.0-0.8); Eosinophils % 2.4 %; Lymphocytes # 2.4 10^3/uL (0.8-4.8); Lymphocytes % 31.5 %; Mean Corpuscular HGB Conc 32.5 g/dL (30.0-36.0); Mean Corpuscular Volume 92.4 fL (80-94); Mean Platelet Volume 10.8 fL (7.4-10.4); Monocytes # 0.7 10^3/uL (0.2-0.9); Monocytes % 9.7 %; Neutrophils # 4.17 10^3/uL (1.8-7.7); Neutrophils % 55.2 %; Nucleated Red Blood Cells % 0 %; Platelet Count 147 10^3/cmm (130-400); Red Blood Count 4.33 10^6/uL (4.1-5.3); Red Cell Distribution Width 13.7 % (12.1-15.1); White Blood Count 7.6 10^3/uL (4.0-10.0)
[2021-02-18 10:36] LABS: Alanine Aminotransferase 51 U/L (0-41); Albumin Level 3.4 g/dL (3.5-5.2); Alkaline Phosphatase 142 IU/L (40-130); Aspartate Amino Transferase 37 U/L (0-40); Blood Urea Nitrogen 8 mg/dL (6-20); Calcium 8.1 mg/dL (8.5-10.5); Carbon Dioxide 23 mmol/L (22-29); Chloride 107 mmol/L (98-107); Creatinine Clr Calc Pharmacy 75.8148; Glomerular Filtration Rate 68.8 mL/min (90-130); Glucose 176 mg/dL (65-115); Osmolality Calculated 291 mOsm/kg (285-295); Sodium 139 mmol/L (136-145); Total Bilirubin 0.4 mg/dL (0.15-1.2); Total Protein 5.4 g/dL (6.6-8.7)
[2021-02-18 11:12] LABS: Glucose Point of Care 199 mg/dL (70-110)
--- NOTE | 2021-02-19 16:25 | PM.DCS ---
Discharge Providers Date of Admission: 02/16/21 21:20 Date of Discharge: February 19, 2021 Attending Provider at Admission: Tulio Davis MD Attending Provider at Discharge: Adelina Seth MD Primary Care Provider: Madeline Shields DO Diagnoses at Discharge Discharge Diagnosis (1) Acute bacterial sinusitis: Status: Acute (2) Abdominal pain: Status: Acute Qualifiers: Abdominal location: generalized Qualified Code(s): R10.84 - Generalized abdominal pain (3) Nausea and vomiting: Status: Acute Qualifiers: Vomiting type: unspecified Vomiting Intractability: non-intractable Qualified Code(s): R11.2 - Nausea with vomiting, unspecified Reason for Visit Reason for Visit: SOB/VOMITING Hospital Course Hospital Course Mr. Goode is a 60-year-old male who presented to the emergency room on February 16, 2021 after presenting with chief complaints of nausea vomiting in the setting of having postnasal drip and worsening sinus pain over 45 days prior to presentation. He has a history of seasonal allergies, follows with ENT and gets budesonide injections weekly for treatment. More recently he has noticed increasing congestion of the sinuses, intermittent fever at home, postnasal drip which is increasing, white blood cell count up to 23 during the hospital course. Initially there was a suspicion for possible mesenteric ischemia given elevated lactate, however CT abdomen pelvis did not show any bowel edema or acute signs of ischemia. Abdominal symptoms are compeltely resolved in less than 24 hours. No acute urgent surgical indication. Overall clinical picture is suspicious for acute bacterial vs viral sinusitis on top of already having persistent chronic sinusitis. Post nasal drip in the setting of bacterial or viral etiology can be a cause of abdominal symptoms. He received treatment with IV antibiotics while he was admitted, this is being transitioned to oral Augmentin and doxycycline (MRSA PCR positive) at the time of discharge for additional 7 days. Patient feels much improved by the time of discharge. Recommended to follow-up with his ENT physician in the next 7 to 10 days. 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 SUPERVISOR: no focal neuro deficits Discharge Data Data Completed and Pending: Completed Studies During Hospitalization Category Date Time Status CT abdomen pelvis w con* [id number] Urge nt Cat Scan 02/16/21 19:36 Completed XR chest 1V samir ble [id number] Urgent Exams 02/16/21 19:36 Completed Pending at discharge Category Date Time Status Blood Culture Sta t Lab 02/17/21 17:28 Results Vitals: Last Vital Signs Temp 98.1 F 02/18/21 13:51 Pulse 67 02/18/21 13:51 Resp 18 02/18/21 13:51 BP 131/74 02/18/21 13:51 Pulse Ox 94 02/18/21 13:51 Discharge Plan Discharge Patient Disposition: Home Condition: Stable Prescriptions: New Augmentin 875-125 mg tablet 1 tab PO BID 7 Days Qty: 14 RF: 0 doxycycline hyclate 100 mg capsule 100 mg PO BID 7 Days Qty: 14 RF: 0 Continued albuterol sulfate 2.5 mg /3 mL (0.083 %) solution for nebulization 2.5 mg INHALATION Q4H PRN (Reason: Shortness Of Breath) RF: 0 ferrous sulfate 324 mg (65 mg iron) tablet,delayed release (DR/EC) 324 mg PO DAILY@0900 RF: 0 cholecalciferol (vitamin D3) 50,000 unit capsule 5,000 unit PO DAILY@0900 RF: 0 (DME) True Metrix Glucose Test Strip Strip See Rx Instructions .ROUTE .MEDSUPPLY Qty: 100 RF: 2 metoprolol tartrate 25 mg tablet 12.5 mg PO BID@0900,2100 RF: 0 ondansetron HCl [Zofran] 4 mg tablet 4 mg PO Q6H Qty: 12 RF: 1 Trulicity 1.5 mg/0.5 mL pen injector 1.5 mg SUBCUT .ONCE WEEKLY Qty: 2 RF: 5 betamethasone acet,sod phos [Celestone Soluspan] 6 mg/mL suspension 6 mg IM ONCE Qty: 1 RF: 0 (DME) True Metrix Pro Test Strip Strip See Rx Instructions .ROUTE .MEDSUPPLY Qty: 50 RF: 0 (DME) pen needle, diabetic [Comfort EZ Pen Mcalester] 29 gauge x 1/2 needle See Rx Instructions .ROUTE .MEDSUPPLY Qty: 50 RF: 2 albuterol sulfate [ProAir HFA] 90 mcg/actuation HFA aerosol inhaler 2 puff INHALATION Q6H PRN (Reason: Shortness Of Breath) Qty: 8.5 RF: 0 (DME) blood-glucose meter [True Metrix Air Glucose Meter] Kit See Rx Instructions .ROUTE .MEDSUPPLY Qty: 1 RF: 0 morphine 15 mg tablet 15 mg PO .FIVES TIMES DAILY PRN (Reason: Pain) 30 Days Qty: 150 RF: 0 morphine 60 mg tablet extended release 60 mg PO Q12H 30 Days Qty: 90 RF: 0 (DME) blood-glucose meter [Contour Next One Meter] Misc See Rx Instructions .ROUTE .MEDSUPPLY Qty: 200 RF: 5 furosemide [Lasix] 20 mg tablet 20 mg PO DAILY@0900 RF: 0 atorvastatin 40 mg tablet 40 mg PO BEDTIME@2099 RF: 0 aspirin 81 mg tablet,delayed release (DR/EC) 81 mg PO DAILY@0900 RF: 0 baclofen 20 mg tablet 10 mg PO TID@,, RF: 0 tamsulosin 0.4 mg capsule 0.4 mg PO DAILY@0900 RF: 0 azelastine 137 mcg (0.1 %) aerosol,spray 2 spray INTRANASAL BID@899,2099 RF: 0 duloxetine 60 mg capsule,delayed release(DR/EC) 60 mg PO BID@899,2099 RF: 0 pregabalin [Lyrica] 50 mg capsule 50 mg PO BID@899,2099 RF: 0 Jardiance 10 mg tablet 25 mg PO DAILY@0900 RF: 0 trazodone 100 mg Tablet 100 mg PO BID@00,2099 RF: 0 Discharge Orders: Discharge Order (Routine); Ordered 02/18/21 Ordered By: Adelina Seth Referrals: Madeline Shields DO [Primary Care Provider] - 1-3 days (Please call Dr. Shields's office to call and schedule a follow up appointment. ) Patient Instructions: Doxycycline (By mouth), Amoxicillin/Clavulanate Potassium (By mouth), MRSA, Acute Nausea and Vomiting (GEN), Opioid Safety Discharge Attestations Time Spent in Discharge Care*: greater than 30 min Quality Metrics Clinical Quality Measures During this hospital stay, did patient experience: None Coding Level of Care Code Acute Chg FW DC note Diagnoses Acute bacterial sinusitis J01.90; B96.89 Abdominal pain R10.84 Abdominal location: generalized Nausea and vomiting R11.2 Vomiting type: unspecified Vomiting Intractability: non-intractable
--- NOTE | 2021-02-21 18:55 | PC.RESP ---
Smoking Cessation and Pulmonary Rehab information sent to patient.
== END 2021-02-18 13:45 | disposition home or self-care (01) | DRG 872 ==
LOC: ER 20:21 → MEDSURG 21:40
PROVIDERS: Admitting Provider Internal Medicine; Emergency Provider Emergency Medicine; PCP Family Medicine; Visit Provider Student in an Organized Health Care Education/Training Program
DX: A41.9 Sepsis, unspecified organism (principal); E87.2 Acidosis; E87.3 Alkalosis; I50.30 Unspecified diastolic (congestive) heart failure; E11.51 Type 2 diabetes mellitus with diabetic peripheral angiopathy without gangrene; Z99.81 Dependence on supplemental oxygen; F17.210 Nicotine dependence, cigarettes, uncomplicated; I25.10 Atherosclerotic heart disease of native coronary artery without angina pectoris; K59.00 Constipation, unspecified; I44.0 Atrioventricular block, first degree; I45.10 Unspecified right bundle-branch block; E87.6 Hypokalemia; G89.29 Other chronic pain; M54.2 Cervicalgia; M54.9 Dorsalgia, unspecified; J44.9 Chronic obstructive pulmonary disease, unspecified; E78.5 Hyperlipidemia, unspecified; Z79.891 Long term (current) use of opiate analgesic; E03.9 Hypothyroidism, unspecified; D50.9 Iron deficiency anemia, unspecified; N31.9 Neuromuscular dysfunction of bladder, unspecified; M17.0 Bilateral primary osteoarthritis of knee; E55.9 Vitamin D deficiency, unspecified; Z79.82 Long term (current) use of aspirin; Z79.4 Long term (current) use of insulin; Z79.51 Long term (current) use of inhaled steroids; B95.62 Methicillin resistant Staphylococcus aureus infection as the cause of diseases classified elsewhere; J32.9 Chronic sinusitis, unspecified; B96.89 Other specified bacterial agents as the cause of diseases classified elsewhere; Z98.1 Arthrodesis status; N40.1 Benign prostatic hyperplasia with lower urinary tract symptoms; R39.14 Feeling of incomplete bladder emptying; E86.0 Dehydration
CPT/HCPCS: 12345; 36415; 36416; 36600; 71045; 74177; 80053; 80306; 81003; 82803; 82962; 83605; 83690; 84484; 85025; 87040; 87426; 87641; 93005; 96365; 96372; 96375; 99285; J1170; J1200; J1650; J1815; J2270; J2405; J2543; J2765; J3480; J7030; J7799; Q9967

== ENCOUNTER 2021-02-22 11:52 | Emergency (ER) | payer MEDICARE, SELFPAY ==
[2021-02-22 12:10] VITALS: BP 177/107; PULSE 122; RESP 18; TEMP 36.9; O2SAT 99; BMI 29.0
--- NOTE | 2021-02-22 12:43 | ECG_ITS ---
[facility] Test Date: 2021-02-22 Pat Name: Troy Goode Department: Room: Gender: Male Power Operator: : [id number] Requested By: Gorge Maier Order Number: [id number] Rossy MD: Ted Nath M.D. Measurements Intervals [place] Rate: 117 P: [place]: QRS: -84 QRSD: 110 T: 58 QT: 333 QTc: 465 Interpretive Statements Sinus tachycardia LEFT AXIS DEVIATION [QRS AXIS < -30] INCOMPLETE RIGHT BUNDLE BRANCH BLOCK [90+ ms QRS DURATION, TERMINAL R IN V1/V2, 40+ ms S IN I/aVL/V4/V5/V6] PROBABLE INFERIOR MYOCARDIAL INFARCTION , OF INDETERMINATE AGE [35 ms Q WAVE IN II/aVF] Compared to ECG 02/17/2021 04:14:54 Myocardial infarct finding now present Short [place] interval no longer present T-wave abnormality no longer present Possible ischemia no longer present Electronically Signed On 02-23-2021 8:02:05 CDT by Ted Nath M.D. [email or web address]
--- NOTE | 2021-02-22 12:45 | W.ED.NAVMDI ---
HPI - Nausea/Vomiting/Diarrhea General: Chief complaint: Nausea/Vomiting/Diarrhea Stated complaint: NAUSEA, SOB Time Seen by Provider: 02/22/21 12:11 Source: patient, family and old records reviewed Mode of arrival: ambulatory Limitations: no limitations History of Present Illness: MD elicited complaint: nausea and vomiting Pertinent past history: other (weekly budesonide injections for over a year) Onset (ago): day(s) (Was admitted for this end of January, discharged and began again yesterday) Description of vomiting: food contents (digested food contents--then becomes dry heaving) Associated nausea: Yes Associated abdominal pain: Yes (soreness from dry heaving) Exacerbating factors: eating and vomiting Relieving factors: none Context: recent antibiotic use Associated symtoms: Reports diaphoresis (during vomiting), fatigue and nausea; Denies altered mental status, bloating, chest pain, dysuria or palpitations Review of Systems General: Reports: 10 or more systems reviewed and unremarkable except in HPI and below Const: Reports: change in appetite, fatigue and diaphoresis (during vomiting); Denies: fever(s), chills or body aches ENMT: Denies: throat pain, odynophagia or hoarseness Card: Reports: dyspnea on exertion; Denies: chest pain, palpitations, edema or lightheadedness Resp: Reports: dyspnea (with heaving) GI: Reports: abdominal pain, nausea and vomiting; Denies: hematemesis, coffee ground emesis, dysphagia, heartburn, early satiety, diarrhea, constipation, bloating, GI cramping, belching, excessive flatus, pain on defecation, rectal pain, change in stool character, hematochezia, melena or mucus in stool : Denies: flank pain, difficulty urinating or dysuria Musc: Denies: neck pain or back pain Skin/Breast: Denies: rash Psych: Reports: change in appetite PFSH ED PFSH: Medical History (Updated 02/19/21 @ 16:26 by Adelina Seth MD) Allergic rhinosinusitis Chronic neck and back pain Controlled type 2 diabetes mellitus, without long-term current use of insulin COPD, moderate Dyslipidemia Encounter for long-term opiate analgesic use Enrolled in chronic care management Essential (primary) hypertension Gastritis Heart failure with preserved ejection fraction Echo 03/2020 EF 55%, Grade II diastolic dysfunction Hypothyroidism, unspecified Incomplete bladder emptying Iron deficiency anemia Neurogenic bladder PAD (peripheral artery disease) Primary osteoarthritis of left knee Primary osteoarthritis of right knee Tear of medial collateral ligament of left knee Vitamin D deficiency Surgical History (Updated 02/17/21 @ 11:13 by Latrell Sethi MD) H/O circumcision H/O colonoscopy 11/20/2016 H/O esophagogastroduodenoscopy 2014 H/O oral surgery Teeth extracted History of back surgery Lumbar laminectomy x 2 Family History Father Diabetes Stroke Bleeding disorder Mother Diabetes Cancer SKIN Other CAD (coronary artery disease) Lung disease Denies family history of Anesthesia complication Social History (Updated 02/17/21 @ 11:14 by Latrell Sethi MD) Smoking and tobacco status: current every day smoker cigarettes Packs smoked per day: 0.25 Years cigarettes smoked: 45 [ Other cigarette details: Used to smoke a pack of cigarettes a day, trying to cut down and quit ] Quit status (tobacco): has tried quititng Smoking risk assessment/counseling performed?: Yes Alcohol intake: never Lives independently: Yes Household members: spouse Marital status: Current occupational status: disabled Current gender identity: Male Physical Exam Const: COMMON NORMALS: no limitations, alert and well nourished EXAM LIMITATIONS: no altered mental status GENERAL APPEARANCE: cooperative, well developed and in distress (begins dry heaving after epigastric palpation); no odor of alcohol detected NUTRITIONAL APPEARANCE: obese ORIENTATION/CONSCIOUSNESS: Yes awake; not confused HENMT: COMMON NORMALS: normocephalic, atraumatic, external ears normal and Normal external nose present HEAD & SCALP: normal to inspection, normocephalic and atraumatic FACE & SINUS: face symmetric NOSE: Normal external nose present EXTERNAL EAR: Yes external ears normal MOUTH: lip normal; no muffled voice Eye: COMMON NORMALS: EOMs intact bilaterally and conjunctivae normal GENERAL EYE: appearance normal, both eyes and all related structures CONJUNCTIVA: Yes conjunctivae normal Neck/C-Spine: COMMON NORMALS: no JVD GENERAL: Yes normal visual inspection and Yes trachea midline Resp: COMMON NORMALS: No use of accessory muscles and clear to auscultation bilaterally EFFORT & INSPECTION: Yes able to speak in complete sentences, Yes symmetric chest movement and Yes tachypneic (dry heaving) AUSCULTATION: clear to auscultation bilaterally Cardio: COMMON NORMALS: no JVD and regular rhythm RATE: tachycardic RHYTHM: regular rhythm PERIPHERAL PULSES: radial pulses present GI: COMMON NORMALS: Soft to palpation INSPECTION: No abdominal wall ecchymosis, No Abdominal wall edema, No Anasarca, No abdominal distension, Yes central obesity, No Fluid wave present and No GI erythema present AUSCULTATION: Yes Hyperactive bowel sounds present PALPATION: Yes Soft to palpation, Yes Tenderness to palpation present (GI) (subxihpoid) Details: LUQ and No Guarding due to palpation present (GI) PERCUSSION: normal to percussion and no fluid wave RECTAL EXAM: Yes deferred Back/Pelvis: COMMON NORMALS: thoraco-lumbar ROM normal Extremity: COMMON NORMALS: normal to inspection GENERAL: Yes normal exam except as noted Neuro: COMMON NORMALS: moves all extremities, no focal motor deficits and no sensory deficits noted SENSORIUM/ORIENTATION: Yes alert Psych: COMMON NORMALS: mental status grossly normal, Normal thought process present, cooperative, normal affect and speech normal SPEECH: Yes normal speech THOUGHT PROCESS: Normal thought process present Skin: COMMON NORMALS: no rashes or lesions noted, turgor normal and no jaundice GENERAL SKIN EXAM: no rashes or lesions noted and turgor normal Course ED course: Re-evaluated twice. By 1445 he's had the benadryl, reglan, gi cocktail, and pepcid. His symptoms are resolved. His labs suggest hemoconcentration. Pt is making urine. Patient appears to have a minor degree of iatrogenic steroid dependence and appears to have some gastritis or possibly PUD that could be related to chronic steroid and ASA use. Will d/c on PPI, reglan, carafate. F/u pcp. Stop weekly steroid injections. Endoscopy may be indicated for treatment failure. Vital Signs: Vital signs: Vital Signs Temperature 98.4 F 02/22/21 12:10 Pulse Rate 100 02/22/21 14:24 Respiratory Rate 16 02/22/21 14:24 Blood Pressure 148/87 02/22/21 14:24 Pulse Oximetry 91 02/22/21 14:24 MDM - Nausea/Vomiting/Diarrhea MDM Narrative: Medical decision making narrative: 60-year-old male presents with recurrent episodes of nausea and vomiting. His abdominal pain seems secondary and not a primary cause. He is taking steroid shots weekly and has been doing so for over a month. I have reviewed his most recent admission. A CT scan of the abdomen and pelvis was unremarkable. His white blood cell count was elevated but I do not think it was known at that time he was taking steroids routinely. I suspect he may have gastritis or peptic ulcer disease as a cause of his symptoms and may be exacerbated by diet, steroids, aspirin, and most recently doxycycline and Augmentin. The antibiotics did not seem to do him any benefit. He denies symptoms of gastroparesis other than recent frequent dry heaving and vomiting. In other words, he does not have only partially or undigested food regurgitated more than 30 minutes or an hour after eating. He does not have premature satiety. Other than gastritis or peptic ulcer disease the differential diagnosis would also include pancreatitis, anginal equivalent, cyclical vomiting, partial bowel obstruction, medication side effects, H. pylori infection, hepatobiliary dysfunction, gastroparesis, and others. We will begin with GI cocktail after Reglan and Benadryl, 2 L of fluid, and checking CMP, CBC, lipase, EKG. Lab Data: Labs: Lab Results 02/22/21 02/22/21 02/22/21 Range/Units 13:07 13:07 13:56 WBC Cancelled 12.4 H Corrected WBC Cancelled RBC Cancelled 5.65 H Hgb Cancelled 16.7 H Hct Cancelled 51.3 MCV Cancelled 90.8 MCH Cancelled 29.6 MCHC Cancelled 32.6 RDW Cancelled 13.3 Plt Count Cancelled 194 MPV Cancelled 11.3 H Gran % Cancelled Neut % (Auto) Cancelled 68.4 Lymph % (Auto) Cancelled 20.2 [place] % (Auto) Cancelled 7.6 Eos % (Auto) Cancelled 2.9 Baso % (Auto) Cancelled 0.4 Neut # (Auto) Cancelled 8.50 H Lymph # (Auto) Cancelled 2.5 [place] # (Auto) Cancelled 0.9 Eos # (Auto) Cancelled 0.4 Baso # (Auto) Cancelled 0.1 Absolute Gran (aut o) Cancelled Nucleated RBC % (a uto) Cancelled 0 Nucleated RBCs # Cancelled 0.0 Sodium 137 (136-145) mmol/L Potassium 3.8 (3.5-5.1) mmol/L Chloride 100 (98-107) mmol/L Carbon Dioxide 22 (22-29) mmol/L Anion Gap 18.8 (5-19) BUN 11 (6-20) mg/dL Creatinine 1.0 (0.7-1.2) mg/dL GFR Calculation 76.7 L (90-130) mL/min Glucose 158 H (65-115) mg/dL Calculated Osmolal ity 287 (285-295) mOsm/k g Calcium 9.9 (8.5-10.5) mg/dL Magnesium 2.1 (1.7-2.3) mg/dL Total Bilirubin 0.8 (0.15-1.2) mg/dL AST 19 (0-40) U/L ALT 36 (0-41) U/L Alkaline Phosphata se 187 H (40-130) IU/L Total Protein 7.2 (6.6-8.7) g/dL Albumin 4.6 (3.5-5.2) g/dL Globulin 2.6 (1.3-4.6) g/dL Lipase 15 (13-60) U/L EKG Data^: EKG 1: Attestation: I personally reviewed and interpreted this EKG as follows: EKG interpretation date: 02/22/21 EKG interpretation time: 13:00 Prior EKG tracings: available for review Interpretation: Sinus tachycardia at a rate of 117 bpm, left axis deviation, incomplete right bundle branch block, some nonspecific ST and T wave changes noted but low suspicion for acute ischemia. Compared to prior EKG the T wave inversion in V3 has improved. Discharge Plan Discharge Prescriptions: No Action albuterol sulfate 2.5 mg /3 mL (0.083 %) solution for nebulization 2.5 mg INHALATION Q4H PRN (Reason: Shortness Of Breath) RF: 0 (DME) True Metrix Glucose Test Strip Strip See Rx Instructions .ROUTE .MEDSUPPLY Qty: 100 RF: 2 metoprolol tartrate 25 mg tablet 12.5 mg PO BID@0900,2100 RF: 0 (DME) True Metrix Pro Test Strip Strip See Rx Instructions .ROUTE .MEDSUPPLY Qty: 50 RF: 0 (DME) pen needle, diabetic [Comfort EZ Pen [place]] 29 gauge x 1/2 needle See Rx Instructions .ROUTE .MEDSUPPLY Qty: 50 RF: 2 albuterol sulfate [ProAir HFA] 90 mcg/actuation HFA aerosol inhaler 2 puff INHALATION Q6H PRN (Reason: Shortness Of Breath) Qty: 8.5 RF: 0 (DME) blood-glucose meter [True Metrix Air Glucose Meter] Kit See Rx Instructions .ROUTE .MEDSUPPLY Qty: 1 RF: 0 morphine 15 mg tablet 15 mg PO .FIVES TIMES DAILY PRN (Reason: Pain) 30 Days Qty: 150 RF: 0 morphine 60 mg tablet extended release 60 mg PO Q12H [facility] 30 Days Qty: 90 RF: 0 (DME) blood-glucose meter [Contour Next One Meter] Misc See Rx Instructions .ROUTE .MEDSUPPLY Qty: 200 RF: 5 furosemide [Lasix] 20 mg tablet 20 mg PO DAILY PRN (Reason: Edema) RF: 0 atorvastatin 40 mg tablet 40 mg PO BEDTIME@2100 RF: 0 aspirin 81 mg tablet,delayed release (DR/EC) 81 mg PO DAILY@0900 RF: 0 baclofen 20 mg tablet 10 mg PO TID@09,12,21 RF: 0 tamsulosin 0.4 mg capsule 0.4 mg PO BID RF: 0 azelastine 137 mcg (0.1 %) aerosol,spray 2 spray INTRANASAL BID RF: 0 duloxetine 60 mg capsule,delayed release(DR/EC) 60 mg PO BID RF: 0 pregabalin [Lyrica] 50 mg capsule 50 mg PO BID@0900,2100 RF: 0 trazodone 100 mg Tablet 100 - 200 mg PO BEDTIME PRN (Reason: Sleep) RF: 0 amoxicillin-pot clavulanate [Augmentin] 875-125 mg tablet 1 tab PO BID 7 Days Qty: 14 RF: 0 doxycycline hyclate 100 mg capsule 100 mg PO BID 7 Days Qty: 14 RF: 0 ferrous sulfate 325 mg (65 mg iron) Tablet 325 mg PO DAILY RF: 0 Jardiance 25 mg tablet 25 mg PO DAILY@09 RF: 0 Vitamin D3 1 cap PO PRN RF: 0 morphine 60 mg tablet extended release 60 mg PO Q8H RF: 0 Anoro Ellipta 62.5-25 mcg/actuation blister with device 1 inh INHALATION BEDTIME RF: 0 ondansetron HCl [Zofran] 4 mg tablet 4 mg PO Q6H PRN (Reason: Nausea And Vomiting) RF: 0 Trulicity 1.5 mg/0.5 mL pen injector 1.5 mg SUBCUT Q7D RF: 0 Coding Level of Care Code ED Executive Secretary Social Welfare for Chg Fwd Exam Comprehensive
[2021-02-22 12:53] VITALS: BP 148/98; PULSE 117; RESP 16; O2SAT 99
[2021-02-22] MEDS: lidocaine 2% viscous 15 ML, aluminum-mag hydrox-simethicon 30 ML, sucralfate oral liq 1 GM PO (13:40)
[2021-02-22] MEDS: famotidine 20 mg/2 mL INJ 40 MG IVP (13:42)
[2021-02-22] MEDS: metoclopramide 5 mg/mL SDV 2 mL IVP (13:43)
[2021-02-22] MEDS: diphenhydrAMINE 50 mg/mL SDV 1mL IVP (13:43)
[2021-02-22 13:50] LABS: Alanine Aminotransferase 36 U/L (0-41); Albumin Level 4.6 g/dL (3.5-5.2); Alkaline Phosphatase 187 IU/L (40-130); Anion Gap 18.8 (5-19); Aspartate Amino Transferase 19 U/L (0-40); Blood Urea Nitrogen 11 mg/dL (6-20); Calcium 9.9 mg/dL (8.5-10.5); Carbon Dioxide 22 mmol/L (22-29); Chloride 100 mmol/L (98-107); Globulin 2.6 g/dL (1.3-4.6); Glomerular Filtration Rate 76.7 mL/min (90-130); Glucose 158 mg/dL (65-115); Lipase 15 U/L (13-60); Magnesium 2.1 mg/dL (1.7-2.3); Osmolality Calculated 287 mOsm/kg (285-295); Potassium 3.8 mmol/L (3.5-5.1); Sodium 137 mmol/L (136-145); Total Bilirubin 0.8 mg/dL (0.15-1.2); Total Protein 7.2 g/dL (6.6-8.7)
[2021-02-22] MEDS: sodium chloride 0.9% 1,000 ML 999 ML IV ×2 (13:52→14:22)
--- NOTE | 2021-02-22 13:57 | PC.PHAR ---
Addendum entered by Lizet Arriaga 02/22/21 14:03: pts states the verapamil er 240mg,atenolol 50mg,and lisinopril 10mg was all dced Original Note: pt and pts verified pts medications-pts states the pt is still using the anoro inhaler ext med history shows last filled on 10/13/2020 for 30 days pts states they had ended up with 2 extra inhalers-pts states the pt takes vit d and is unsure of the units they buy otc states the pt hasnt taken in 2 weeks and only takes prn-pts states the pt takes lasix 20mg prn last filled on 10/16/2020-pts states the pt is taking 12.5mg bid of metoprolol tartrate ext med history shows last filled on 12/31/20 30d/s for 25mg bid-pt states he is taking morphine er 60mg q8h last filled at [facility] on 12/21/20 30d/s-honey kohler has rx on hold written in 01/07/21 for morphine er 60mg q12h
[2021-02-22 14:08] LABS: Basophils # 0.1 10^3/uL (0.0-0.1); Basophils % 0.4 %; Eosinophils # 0.4 10^3/uL (0.0-0.8); Eosinophils % 2.9 %; Hematocrit 51.3 % (42.0-52.0); Hemoglobin 16.7 g/dL (11.7-16.6); Lymphocytes # 2.5 10^3/uL (0.8-4.8); Lymphocytes % 20.2 %; Mean Corpuscular HGB Conc 32.6 g/dL (30.0-36.0); Mean Corpuscular Hemoglobin 29.6 pg (28.0-34.0); Mean Corpuscular Volume 90.8 fL (80-94); Mean Platelet Volume 11.3 fL (7.4-10.4); Monocytes # 0.9 10^3/uL (0.2-0.9); Monocytes % 7.6 %; Neutrophils % 68.4 %; Nucleated Red Blood Cells % 0 %; Platelet Count 194 10^3/cmm (130-400); Red Blood Count 5.65 10^6/uL (4.1-5.3); Red Cell Distribution Width 13.3 % (12.1-15.1); White Blood Count 12.4 10^3/uL (4.0-10.0)
[2021-02-22 14:24] VITALS: BP 148/87; PULSE 100; RESP 16; O2SAT 91
[2021-02-22 15:34] VITALS: BP 152/70; PULSE 98; RESP 17; O2SAT 94
== END 2021-02-22 15:35 | disposition home or self-care (01) ==
PROVIDERS: Emergency Provider Emergency Medicine; PCP Family Medicine
DX: R11.2 Nausea with vomiting, unspecified (principal); Z79.82 Long term (current) use of aspirin; E11.9 Type 2 diabetes mellitus without complications; J44.9 Chronic obstructive pulmonary disease, unspecified; E78.5 Hyperlipidemia, unspecified; F17.210 Nicotine dependence, cigarettes, uncomplicated
CPT/HCPCS: 36415; 80053; 83690; 83735; 85025; 93005; 96361; 96374; 96375; 99284; J1200; J2765; J3490; J7030

== ENCOUNTER → 2021-03-03 12:36 | Outpatient (BNVA) | payer MEDICARE, SELFPAY | PROVIDERS: PCP Family Medicine; Visit Provider Anesthesiology | DX: G89.29 Other chronic pain (principal); M54.9 Dorsalgia, unspecified; M54.2 Cervicalgia; F17.219 Nicotine dependence, cigarettes, with unspecified nicotine-induced disorders; Z79.891 Long term (current) use of opiate analgesic | CPT/HCPCS: 99214 ==

== ENCOUNTER 2021-03-16 17:15 | Emergency (ER) | payer MEDICARE, SELFPAY ==
[2021-03-16 17:23] VITALS: BP 170/88; PULSE 110; RESP 18; TEMP 36.4; O2SAT 97; BMI 28.1
[2021-03-16 17:31] LABS: Glucose Point of Care 168 mg/dL (70-110)
--- NOTE | 2021-03-16 18:18 | XRR_ITS ---
PROCEDURE INFORMATION: Exam: XR Chest Exam date and time: 03/16/2021 6:19 PM Age: 60 years old Clinical indication: Shortness of breath; Patient HX: PT is a smoker, presents with SOB and high blood sugar TECHNIQUE: Imaging protocol: XR of the chest. Views: 1 view. COMPARISON: CR XR chest 1V portable [id number] 02/16/2021 7:53 PM FINDINGS: Lungs: No consolidation. Unchanged hyperinflation compatible with COPD with mild interstitial prominence/fibrosis/chronic bronchitis. The vascularity is within normal limits. Pleural spaces: Unremarkable. No pleural effusion. No pneumothorax. Heart/Mediastinum: There is unchanged cardiomegaly. Bones/joints: No acute abnormality. XR/XR chest 1V portable [id number] IMPRESSION: No acute findings. Unchanged probable COPD with chronic bronchitis/fibrosis. Unchanged cardiomegaly.
[2021-03-16 18:30] LABS: Basophils # 0.1 10^3/uL (0.0-0.1); Basophils % 0.7 %; Eosinophils # 0.4 10^3/uL (0.0-0.8); Eosinophils % 2.5 %; Hematocrit 42.7 % (42.0-52.0); Hemoglobin 14.3 g/dL (11.7-16.6); Lymphocytes # 2.5 10^3/uL (0.8-4.8); Lymphocytes % 16.3 %; Mean Corpuscular HGB Conc 33.5 g/dL (30.0-36.0); Mean Corpuscular Hemoglobin 29.9 pg (28.0-34.0); Mean Corpuscular Volume 89.1 fL (80-94); Mean Platelet Volume 11.6 fL (7.4-10.4); Monocytes # 1.5 10^3/uL (0.2-0.9); Monocytes % 9.5 %; Neutrophils # 10.99 10^3/uL (1.8-7.7); Neutrophils % 70.3 %; Nucleated Red Blood Cells % 0 %; Platelet Count 223 10^3/cmm (130-400); Red Blood Count 4.79 10^6/uL (4.1-5.3); Red Cell Distribution Width 14.2 % (12.1-15.1); White Blood Count 15.6 10^3/uL (4.0-10.0)
[2021-03-16 18:39] LABS: Alanine Aminotransferase 50 U/L (0-41); Albumin Level 3.9 g/dL (3.5-5.2); Alkaline Phosphatase 208 IU/L (40-130); Anion Gap 17.6 (5-19); Aspartate Amino Transferase 64 U/L (0-40); Blood Urea Nitrogen 6 mg/dL (6-20); Calcium 8.9 mg/dL (8.5-10.5); Carbon Dioxide 25 mmol/L (22-29); Chloride 94 mmol/L (98-107); Globulin 2.8 g/dL (1.3-4.6); Glomerular Filtration Rate 99.3 mL/min (90-130); Glucose 160 mg/dL (65-115); Osmolality Calculated 277 mOsm/kg (285-295); Potassium 3.6 mmol/L (3.5-5.1); Sodium 133 mmol/L (136-145); Total Bilirubin 0.6 mg/dL (0.15-1.2); Total Protein 6.7 g/dL (6.6-8.7)
[2021-03-16 19:17] LABS: Add Urine Microscopic? YES; Bilirubin Urine Neg (Negative); Blood Urine 2+ (Negative); Glucose Urine UA 4+ (Normal); Ketones Urine Negative (Negative); Leukocyte Esterase Urine Trace (Negative); Nitrate Urine Negative (Negative); Protein Urine Neg (Negative); RBC Urine 0-4 /hpf (0-2); Urine Appearance Clear (CLEAR); Urine Color Yellow (Yellow); Urobilinogen Urine Norm (Negative); pH Urine 5 (5-7)
[2021-03-16 19:18] LABS: Add Urine Culture? No; Bacteria Urine TRACE /hpf
[2021-03-16 19:23] LABS: ABG PCO2 41.3 mmHg (35-45); ABG PH Result 7.43 (7.35-7.45); Arterial Blood Gas Hematocrit 42.4 % (42-52); Blood Gas Allen Test Pos; Blood Gas Sample Site Radial, left; Blood Gas Sample Type Arterial; HCO3 ABG 27.6 mmol/L (22-26); Oxygen Device ROOM AIR; PO2 ABG 72.3 mmHg (80.0-100.0)
--- NOTE | 2021-03-16 19:31 | ED_ITS ---
HPI - General Adult General: Chief complaint: General Medical Stated complaint: high blood sugar. sent by Time Seen by Provider: 03/16/21 17:36 Source: patient and family () Mode of arrival: ambulatory History of Present Illness: HPI narrative: Patient is a 60-year-old male who presents to the emergency department with concerns for elevated blood glucose levels. He states that when he checked his blood glucose today he was 288 and he was concerned that that was too high until he came into the emergency department to be evaluated. According to his he has had a lot of medication changes for diabetes and he has recently changed his primary care provider. He called his primary care provider's office today and the nurse advised him to come to the emergency department to be evaluated. Associated symptoms: Deny chest pain, confusion, cough, diaphoresis, decreased appetite, dyspnea, fevers/chills, headache(s), malaise, nausea, rash, palpitations, seizures, short of breath, syncope, vomiting or weakness Review of Systems General: Reports: 10 or more systems reviewed and unremarkable except in HPI and below Const: Denies: malaise or diaphoresis Card: Denies: chest pain, palpitations or syncope Resp: Denies: dyspnea GI: Denies: nausea or vomiting Skin/Breast: Denies: rash Neuro: Denies: headache(s) or confusion PFSH ED PFSH: Medical History (Reviewed 03/16/21 @ 20:09 by Kathie Mcneill MD, [facility] [place]) Allergic rhinosinusitis Chronic mesenteric ischemia Chronic neck and back pain Controlled type 2 diabetes mellitus, without long-term current use of insulin COPD, moderate Dyslipidemia Encounter for long-term opiate analgesic use Enrolled in chronic care management Essential (primary) hypertension Gastritis Heart failure with preserved ejection fraction Echo 03/2020 EF 55%, Grade II diastolic dysfunction Hypothyroidism, unspecified Incomplete bladder emptying Iron deficiency anemia Neurogenic bladder PAD (peripheral artery disease) PAD (peripheral artery disease) Primary osteoarthritis of left knee Primary osteoarthritis of right knee Seasonal allergies Tear of medial collateral ligament of left knee Vitamin D deficiency Surgical History (Reviewed 03/16/21 @ 20:09 by Kathie Mcneill MD, [facility] [place]) H/O circumcision H/O colonoscopy 11/20/2016 H/O esophagogastroduodenoscopy 2014 H/O oral surgery Teeth extracted History of back surgery Lumbar laminectomy x 2 Family History (Reviewed 03/16/21 @ 20:09 by Kathie Mcneill MD, [facility] [place]) Father Diabetes Stroke Bleeding disorder Mother Diabetes Cancer SKIN Other CAD (coronary artery disease) Lung disease Denies family history of Anesthesia complication Social History (Reviewed 03/16/21 @ 20:09 by Kathie Mcneill MD, [facility] [place]) Smoking and tobacco status: current every day smoker cigarettes Packs smoked per day: 0.25 Years cigarettes smoked: 45 [ Other cigarette details: Used to smoke a pack of cigarettes a day, trying to cut down and quit ] Quit status (tobacco): has tried quititng Smoking risk assessment/counseling performed?: Yes Alcohol intake: never Lives independently: Yes Household members: spouse Marital status: Current occupational status: disabled History of recent travel: No Current gender identity: Male Physical Exam Const: COMMON NORMALS: no acute distress, average body habitus, patient oriented x3, no limitations, healthy appearing, alert and well nourished HENMT: COMMON NORMALS: normocephalic, atraumatic and moist oral mucous membranes HEAD & SCALP: normocephalic and atraumatic Neck/C-Spine: COMMON NORMALS: no meningeal signs and no JVD Resp: COMMON NORMALS: normal respiratory effort, No retractions, No use of accessory muscles, clear to auscultation bilaterally and percussion normal AUSCULTATION: clear to auscultation bilaterally PERCUSSION: percussion normal Cardio: COMMON NORMALS: no JVD, regular rate, regular rhythm, S1 normal heart sound present, S2 normal heart sound present, No gallops present (Cardio), No clicks present (Cardio), No murmurs present (Cardio), No rub (Cardio) and Peripheral pulses 2+ throughout RATE: regular rate RHYTHM: regular rhythm HEART SOUNDS: S1 normal heart sound present and S2 normal heart sound present PERIPHERAL PULSES: Peripheral pulses 2+ throughout GI: COMMON NORMALS: Normal to inspection, nondistended, normoactive bowel sounds present, Soft to palpation, non-tender, No hepatosplenomegaly present, no masses and no bruits PALPATION: Yes Soft to palpation and Yes No hepatosplenomegaly present Extremity: COMMON NORMALS: normal to inspection, full ROM, capillary refill normal, no calf tenderness and no pedal edema Neuro: COMMON NORMALS: patient oriented x3 SENSORIUM/ORIENTATION: Yes alert MENINGEAL SIGNS: Yes no meningeal signs Skin: COMMON NORMALS: no rashes or lesions noted, no wounds, turgor normal, no jaundice, no petechiae and no mottling GENERAL SKIN EXAM: no rashes or lesions noted and turgor normal Course Reevaluation(s): Reevaluation #1: Discussed his lab and imaging findings with the patient and his . No acute findings. No reason to hospitalize the patient. Advised that he be discharged home to follow-up with his primary care provider. He explained to me that his primary care provider sent he will see him tomorrow if he was not admitted to the hospital. Advised that the probably need an adjustment of his antidiabetic medications. He voiced understanding and they are in agreement with the plan. Time: 19:32 Vital Signs: Vital signs: Vital Signs Temperature 97.5 F L 03/16/21 17:23 Pulse Rate 102 H 03/16/21 19:51 Respiratory Rate 16 03/16/21 19:51 Blood Pressure 144/84 03/16/21 19:51 Pulse Oximetry 96 03/16/21 19:51 MDM - General Adult MDM Narrative: Medical decision making narrative: 60-year-old male, with type 2 diabetes mellitus presents to the emergency department with concerns for hyperglycemia. Glucose is elevated but not significantly elevated. Other labs unremarkable. Chest x-ray was negative for acute findings. He likely needs outpatient management of his antidiabetic medications and he will follow up with his primary care provider tomorrow. He is discharged home with no new orders. Lab Data: Labs: Lab Results 03/16/21 03/16/21 03/16/21 Range/Units 17:28 17:47 17:50 WBC 15.6 H (4.0-10.0) 10^3/ uL RBC 4.79 (4.1-5.3) 10^6/u L Hgb 14.3 (11.7-16.6) g/dL Hct 42.7 (42.0-52.0) % MCV 89.1 (80-94) fL MCH 29.9 (28.0-34.0) pg MCHC 33.5 (30.0-36.0) g/dL RDW 14.2 (12.1-15.1) % Plt Count 223 (130-400) 10^3/c mm MPV 11.6 H (7.4-10.4) fL Neut % (Auto) 70.3 % Lymph % (Auto) 16.3 % [place] % (Auto) 9.5 % Eos % (Auto) 2.5 % Baso % (Auto) 0.7 % Neut # (Auto) 10.99 H (1.8-7.7) 10^3/u L Lymph # (Auto) 2.5 (0.8-4.8) 10^3/u L [place] # (Auto) 1.5 H (0.2-0.9) 10^3/u L Eos # (Auto) 0.4 (0.0-0.8) 10^3/u L Baso # (Auto) 0.1 (0.0-0.1) 10^3/u L Nucleated RBC % (a uto) 0 % Nucleated RBCs # 0.0 /100WBC Specimen Type Sample Site ABG pH (7.35-7.45) ABG pCO2 (35-45) mmHg ABG pO2 (80.0-100.0) mmH g ABG HCO3 (22-26) mmol/L ABG Base Excess (-2.0-2.0) mmol/ L Jonathan Test Hematocrit (42-52) % O2 Delivery Device FiO2 % Regional Clinical Research Associate ID Sodium (136-145) mmol/L Potassium (3.5-5.1) mmol/L Chloride (98-107) mmol/L Carbon Dioxide (22-29) mmol/L Anion Gap (5-19) BUN (6-20) mg/dL Creatinine (0.7-1.2) mg/dL GFR Calculation (90-130) mL/min Glucose (65-115) mg/dL POC Glucose 168 H (70-110) mg/dL Calculated Osmolal ity (285-295) mOsm/k g Calcium (8.5-10.5) mg/dL Magnesium (1.7-2.3) mg/dL Total Bilirubin (0.15-1.2) mg/dL AST (0-40) U/L ALT (0-41) U/L Alkaline Phosphata se (40-130) IU/L Total Protein (6.6-8.7) g/dL Albumin (3.5-5.2) g/dL Globulin (1.3-4.6) g/dL Urine Color Yellow (Yellow) Urine Appearance Clear (CLEAR) Urine pH 5 (5-7) Ur Specific Gravit y 1.010 (1.005-1.030) Urine Protein Neg (Negative) Urine Glucose (UA) 4+ H (Normal) Urine Ketones Negative (Negative) Urine Blood 2+ H (Negative) Urine Nitrate Negative (Negative) Urine Bilirubin Neg (Negative) Urine Urobilinogen Norm (Negative) mg/dL Ur Leukocyte Malika ase Trace H (Negative) Urine RBC 0-4 H (0-2) /hpf Urine WBC 5-10 H (0-5) /hpf Ur Squamous Epith Cells 5-10 H (0-5) /hpf Amorphous Sediment Not Reportable Urine Bacteria Trace (NONE) /hpf 03/16/21 03/16/21 03/16/21 Range/Units 17:50 17:50 19:10 WBC (4.0-10.0) 10^3/ uL RBC (4.1-5.3) 10^6/u L Hgb (11.7-16.6) g/dL Hct (42.0-52.0) % MCV (80-94) fL MCH (28.0-34.0) pg MCHC (30.0-36.0) g/dL RDW (12.1-15.1) % Plt Count (130-400) 10^3/c mm MPV (7.4-10.4) fL Neut % (Auto) % Lymph % (Auto) % [place] % (Auto) % Eos % (Auto) % Baso % (Auto) % Neut # (Auto) (1.8-7.7) 10^3/u L Lymph # (Auto) (0.8-4.8) 10^3/u L [place] # (Auto) (0.2-0.9) 10^3/u L Eos # (Auto) (0.0-0.8) 10^3/u L Baso # (Auto) (0.0-0.1) 10^3/u L Nucleated RBC % (a uto) % Nucleated RBCs # /100WBC Specimen Type Arterial Sample Site Radial, left ABG pH 7.43 (7.35-7.45) ABG pCO2 41.3 (35-45) mmHg ABG pO2 72.3 L (80.0-100.0) mmH g ABG HCO3 27.6 H (22-26) mmol/L ABG Base Excess 3.0 H (-2.0-2.0) mmol/ L Jonathan Test Pos Hematocrit 42.4 (42-52) % O2 Delivery Device Room air FiO2 21.0 % Regional Clinical Research Associate ID Jlg Sodium 133 L (136-145) mmol/L Potassium 3.6 (3.5-5.1) mmol/L Chloride 94 L (98-107) mmol/L Carbon Dioxide 25 (22-29) mmol/L Anion Gap 17.6 (5-19) BUN 6 (6-20) mg/dL Creatinine 0.8 (0.7-1.2) mg/dL GFR Calculation 99.3 (90-130) mL/min Glucose 160 H (65-115) mg/dL POC Glucose (70-110) mg/dL Calculated Osmolal ity 277 L (285-295) mOsm/k g Calcium 8.9 (8.5-10.5) mg/dL Magnesium 2.0 (1.7-2.3) mg/dL Total Bilirubin 0.6 (0.15-1.2) mg/dL AST 64 H (0-40) U/L ALT 50 H (0-41) U/L Alkaline Phosphata se 208 H (40-130) IU/L Total Protein 6.7 (6.6-8.7) g/dL Albumin 3.9 (3.5-5.2) g/dL Globulin 2.8 (1.3-4.6) g/dL Urine Color (Yellow) Urine Appearance (CLEAR) Urine pH (5-7) Ur Specific Gravit y (1.005-1.030) Urine Protein (Negative) Urine Glucose (UA) (Normal) Urine Ketones (Negative) Urine Blood (Negative) Urine Nitrate (Negative) Urine Bilirubin (Negative) Urine Urobilinogen (Negative) mg/dL Ur Leukocyte Malika ase (Negative) Urine RBC (0-2) /hpf Urine WBC (0-5) /hpf Ur Squamous Epith Cells (0-5) /hpf Amorphous Sediment Urine Bacteria (NONE) /hpf Imaging Data^: CXR: Attestation: I personally reviewed and interpreted this imaging study as follows: Radiologist's impression: [facility] [place], [place] [address]HVje ReportSigned Patient: Troy Goode #: [id number]: 1960Acct#:[id number]/Sex: 60 / MADM Date: 03/16/21Loc: ERRoom/Bed:Attending Dr: Ordering Provider/Ordering MD: Kathie Mcneill MD, [facility] [place] Date of Service: 03/16/21 Procedure(s): XR chest 1V portable [id number] Accession Number(s): [id number] Report Number: [id number] PROCEDURE INFORMATION: Exam: XR Chest Exam date and time: 03/16/2021 6:19 PM Age: 60 years old Clinical indication: Shortness of breath; Patient HX: PT is a smoker, presents with SOB and high blood sugar TECHNIQUE: Imaging protocol: XR of the chest. Views: 1 view. COMPARISON: CR XR chest 1V portable [id number] 02/16/2021 7:53 PM FINDINGS: Lungs: No consolidation. Unchanged hyperinflation compatible with COPD with mild interstitial prominence/fibrosis/chronic bronchitis. The vascularity is within normal limits. Pleural spaces: Unremarkable. No pleural effusion. No pneumothorax. Heart/Mediastinum: There is unchanged cardiomegaly. Bones/joints: No acute abnormality. XR/XR chest 1V portable [id number] IMPRESSION: No acute findings. Unchanged probable COPD with chronic bronchitis/fibrosis. Unchanged cardiomegaly. Dictated By:David Clarkigned By:Jayda Clark Date/Time:03/16/211904DD/ 02 Discharge Plan Discharge Patient Disposition: Home Clinical Impression: Hyperglycemia due to type 2 diabetes mellitus Qualifiers: Diabetes mellitus alf insulin use: without alf use Qualified Code(s): E11.65 - Type 2 diabetes mellitus with hyperglycemia Condition: Stable Prescriptions: Continued albuterol sulfate 2.5 mg /3 mL (0.083 %) solution for nebulization 2.5 mg INHALATION Q4H PRN (Reason: Shortness Of Breath) RF: 0 morphine 15 mg tablet 15 mg PO .FIVES TIMES DAILY PRN (Reason: Pain) 30 Days Qty: 150 RF: 0 pregabalin [Lyrica] 50 mg capsule 50 mg PO QID 30 Days Qty: 120 RF: 1 baclofen 20 mg tablet 20 mg PO QID 30 Days Qty: 120 RF: 1 (DME) True Metrix Glucose Test Strip Strip See Rx Instructions .ROUTE .MEDSUPPLY Qty: 100 RF: 2 metoprolol tartrate 25 mg tablet 12.5 mg PO BID@0900,2100 RF: 0 (DME) True Metrix Pro Test Strip Strip See Rx Instructions .ROUTE .MEDSUPPLY Qty: 50 RF: 0 (DME) pen needle, diabetic [Comfort EZ Pen [place]] 29 gauge x 1/2 needle See Rx Instructions .ROUTE .MEDSUPPLY Qty: 50 RF: 2 albuterol sulfate [ProAir HFA] 90 mcg/actuation HFA aerosol inhaler 2 puff INHALATION Q6H PRN (Reason: Shortness Of Breath) Qty: 8.5 RF: 0 (DME) blood-glucose meter [True Metrix Air Glucose Meter] Kit See Rx Instructions .ROUTE .MEDSUPPLY Qty: 1 RF: 0 (DME) blood-glucose meter [Contour Next One Meter] Misc See Rx Instructions .ROUTE .MEDSUPPLY Qty: 200 RF: 5 furosemide [Lasix] 20 mg tablet 20 mg PO DAILY PRN (Reason: Edema) RF: 0 atorvastatin 40 mg tablet 40 mg PO BEDTIME@2100 RF: 0 aspirin 81 mg tablet,delayed release (DR/EC) 81 mg PO DAILY@0900 RF: 0 tamsulosin 0.4 mg capsule 0.4 mg PO BID RF: 0 azelastine 137 mcg (0.1 %) aerosol,spray 2 spray INTRANASAL BID RF: 0 trazodone 100 mg Tablet 100 - 200 mg PO BEDTIME PRN (Reason: Sleep) RF: 0 ferrous sulfate 325 mg (65 mg iron) Tablet 325 mg PO DAILY@0900 RF: 0 Jardiance 25 mg tablet 25 mg PO DAILY@09 RF: 0 Vitamin D3 1 cap PO PRN RF: 0 Anoro Ellipta 62.5-25 mcg/actuation blister with device 1 inh INHALATION BEDTIME RF: 0 ondansetron HCl [Zofran] 4 mg tablet 4 mg PO Q6H PRN (Reason: Nausea And Vomiting) RF: 0 sucralfate [Carafate] 100 mg/mL suspension 1 g PO TID 28 Days Qty: 840 RF: 0 pantoprazole 40 mg tablet,delayed release (DR/EC) 40 mg PO DAILY 28 Days Qty: 30 RF: 0 cyanocobalamin (vitamin B-12) 1,000 mcg/mL solution See Rx Instructions .ROUTE .COMPLEX RF: 0 morphine 60 mg tablet extended release 60 mg PO Q8H RF: 0 duloxetine 60 mg capsule,delayed release(DR/EC) 60 mg PO BID@0900,2100 RF: 0 Discharge Orders: Discharge ED (Routine); Ordered 03/16/21 Ordered By: Kathie Mcneill Referrals: Tammi Ames MD [Primary Care Provider] - 03/17/21 Patient Instructions: Opioid Safety Activity Restrictions/Additional Instructions: Return for any new or worsening symptoms. Drink plenty of fluids to keep well-hydrated. Follow-up with your primary care provider tomorrow. You may need adjustment of your diabetes medications. Coding Level of Care Code ED Catalyst Supervisor for Jens Boone
[2021-03-16 19:51] VITALS: BP 144/84; PULSE 102; RESP 16; O2SAT 96
== END 2021-03-16 19:54 | disposition home or self-care (01) ==
PROVIDERS: Emergency Provider Family Medicine; PCP Internal Medicine
DX: E11.65 Type 2 diabetes mellitus with hyperglycemia (principal); Z79.891 Long term (current) use of opiate analgesic; Z79.82 Long term (current) use of aspirin; F17.210 Nicotine dependence, cigarettes, uncomplicated; E78.5 Hyperlipidemia, unspecified; I10 Essential (primary) hypertension
CPT/HCPCS: 36416; 36600; 71045; 80053; 81001; 82803; 82962; 83735; 85025; 99283

== ENCOUNTER 2021-04-06 09:00 | Outpatient (CLI) | payer MEDICARE, SELFPAY ==
[2021-04-06 09:16] VITALS: BMI 27.7
--- NOTE | 2021-04-06 09:18 | ECG_ITS ---
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 Interpretive Statements NAME OF STUDY: LEXISCAN SESTAMIBI STRESS TEST INDICATION: Coronary artery disease PROCEDURE: At the baseline, the blood pressure was 153/98 mmHg with a heart rate of 86 bpm. The electrocardiogram showed normal sinus rhythm, left axis deviation and incomplete right bundle branch block. The Lexiscan was infused over a period of 20 seconds. A total of 0.4 milligrams of Lexiscan was infused. The stress phase was continued for a total of 5 minutes. Heart rate at the end of the stress phase was 94 bpm with a blood pressure of 115/75 mmHg. The EKG at the peak infusion revealed sinus rhythm with no significant ST-T wave changes. Sestamibi was injected 20 seconds after the Lexiscan infusion. Blood pressure at the end of the recovery phase was 137/62 mmHg with a heart rate of 95 beats per minute. CONCLUSION: 1. No significant EKG changes with the LexiScan infusion. 2. No LexiScan induced chest pain or cardiac arrhythmia. 3. Normal blood pressure and heart rate response. 4. Sestamibi/sestamibi perfusion scan pending; see separate report. Electronically Signed On 04-11-2021 9:45:23 CDT by Roseanne Dunne M.D. [id number]
--- NOTE | 2021-04-06 09:19 | NMCV_ITS ---
NM jason perf SPECT r/s* [id number] Troy Goode Age: 60 Gender: M : 1960 Exam Date: 04/06/2021 10:12 Ordering Phys: Tammi Ames MD Technologist: YOANDY Zavaleta Exam Location: [facility] Indications: CORONARY HEART DISEASE STRESS TEST [facility] IMAGE PROTOCOL Rest/Stress 1 Lexiscan Day Radiopharmaceutical Dose (mCi) Administration Site Administered by Rest: Tc-99m 10.9 IV YOANDY Holliday Sestamibi Stress:Tc-99m 32.6 IV YOANDY Holliday Sestamibi Rest: 06-Apr-2021 60 Discovery 630 Stress: 06-Apr-2021 30 Discovery 630 0.4mg Lexiscan. Supine position only as patient was unable to lay prone. SPECT RESULTS Technical Quality: Excellent Raw Data Analysis: Normal Image Corrections: No attenuation or motion correction applied Summed Stress Score: 1 Summed Rest Score: 5 Summed Difference Score: 0 PERFUSION FINDINGS Small size perfusion abnormality of mild severity of mid to apical inferior, apical anterior, apical septal wall on rest images with improved tracer uptake in mid inferior, apical septal and apical anterior wall on stress images. FUNCTIONAL RESULTS (calculated via Gated SPECT) Stress Image LV EF (%): 69 Stress EDV (mL):104 TID: 0.87 Stress ESV (mL):32 FUNCTIONAL FINDINGS: The left ventricle is normal in size. Transient Ischemia Dilatation of 0.87. There is normal left ventricular systolic function. The left ventricular ejection fraction is normal with a value of 69%. There is normal left ventricular wall thickening with no regional wall motion abnormality. Normal end-diastolic end-systolic volumes. IMPRESSIONS 1. Small size fixed perfusion abnormality of mild severity of apical inferior wall. This likely represent attenuation artifact but old myocardial infarction may not be completely ruled out. 2. Small sized paradoxical perfusion abnormality of mid inferior apical septal and apical anterior mckeon represents attenuation artifact. 3. Overall left ventricular systolic function is normal without regional wall motion abnormalities. 4. The left ventricular ejection fraction is normal with a value of 69%. 5. No coronary ischemia based on the study. 6. No significant EKG changes with Lexiscan infusion. Roseanne Dunne MD (Electronically Signed) Final Date: 11 April 2021 09:54 S
[2021-04-06] MEDS: regadenoson 0.4 Mg/5 ml Syringe IVP (11:22)
[2021-04-06 11:23] VITALS: BP 137/62; PULSE 96
== END 2021-04-06 09:01 | disposition home or self-care (01) ==
PROVIDERS: PCP Internal Medicine; Visit Provider Internal Medicine
DX: I25.10 Atherosclerotic heart disease of native coronary artery without angina pectoris (principal)
CPT/HCPCS: 78452; 93017; A9500; J2785

== ENCOUNTER → 2021-05-04 12:57 | Outpatient (BNVA) | payer MEDICARE, SELFPAY | PROVIDERS: PCP Internal Medicine; Visit Provider Anesthesiology | DX: G89.29 Other chronic pain (principal); M54.2 Cervicalgia; M54.9 Dorsalgia, unspecified; F17.219 Nicotine dependence, cigarettes, with unspecified nicotine-induced disorders; Z79.891 Long term (current) use of opiate analgesic | CPT/HCPCS: 99214 ==

== ENCOUNTER 2021-05-17 08:09 | Outpatient (CLI) | payer MEDICARE, SELFPAY ==
[2021-05-17 09:10] VITALS: BP 126/88; PULSE 112; RESP 20; TEMP 36.7; O2SAT 96
--- NOTE | 2021-05-17 09:10 | ED_ITS ---
HPI - General Adult History of Present Illness: HPI narrative: This patient presents to the emerg ency department for monoclonal antibody infusion related to COVID-19 infection. Patient denies any increased shortness of breath. Or any significant fever. Patient does have a history of COPD and wears oxygen intermittently. But states that he has not had any increase in oxygen demand and has been positive for Covid for 9 days. Patient and I discussed all risk and concerns. Patient states understanding he request request to proceed. Patient is medically medically stable and will proceed with monoclonal infusion. complaint: Covid Onset (ago): day(s) Associated symptoms: Deny chest pain, dyspnea, headache(s), nausea, rash, palpitations or vomiting Review of Systems General: Reports: 10 or more systems reviewed and unremarkable except in HPI and below Const: Denies: fever(s), chills, body aches or fatigue Eyes: Denies: change in vision or blurry vision ENMT: Denies: throat pain, hoarseness or mouth pain Card: Denies: chest pain, palpitations, irregular heart rhythm, edema, swelling of feet/ankles or lightheadedness Resp: Reports: non-productive cough; Denies: dyspnea, productive cough, wheezing or pain on inspiration GI: Denies: abdominal pain, nausea or vomiting : Denies: flank pain, dysuria, urinary frequency, urinary urgency or urinary hesitancy Musc: Denies: neck pain, back pain, extremity pain, extremity swelling, joint pain, joint swelling, joint redness, joint warmth or limited range of motion Skin/Breast: Denies: rash, pruritus, erythema or skin tenderness Neuro: Denies: headache(s), numbness in extremities or weakness in extremities Psych: Denies: anxiety or depression PFSH ED PFSH: Medical History Allergic rhinosinusitis Chronic mesenteric ischemia Chronic neck and back pain Controlled type 2 diabetes mellitus, without long-term current use of insulin COPD, moderate Dyslipidemia Encounter for long-term opiate analgesic use Enrolled in chronic care management Essential (primary) hypertension Gastritis Heart failure with preserved ejection fraction Echo 03/2020 EF 55%, Grade II diastolic dysfunction Hypothyroidism, unspecified Incomplete bladder emptying Iron deficiency anemia Neurogenic bladder PAD (peripheral artery disease) PAD (peripheral artery disease) Primary osteoarthritis of left knee Primary osteoarthritis of right knee Seasonal allergies Tear of medial collateral ligament of left knee Vitamin D deficiency Surgical History H/O circumcision H/O colonoscopy 11/20/2016 H/O esophagogastroduodenoscopy 2014 H/O oral surgery Teeth extracted History of back surgery Lumbar laminectomy x 2 Family History Father Diabetes Stroke Bleeding disorder Mother Diabetes Cancer SKIN Other CAD (coronary artery disease) Lung disease Denies family history of Anesthesia complication Social History Quit status (tobacco): has tried quititng Smoking risk assessment/counseling performed?: Yes Alcohol intake: never Lives independently: Yes Household members: spouse Marital status: Current occupational status: disabled History of recent travel: No Current gender identity: Male Physical Exam Const: COMMON NORMALS: no acute distress, average body habitus, patient oriented x3, no limitations, healthy appearing, alert and well nourished HENMT: COMMON NORMALS: normocephalic, atraumatic, hearing grossly normal bilaterally, external ears normal, EAC's normal, TM's normal bilaterally, Normal external nose present, Normal nasal mucous membranes and turbinates present, moist oral mucous membranes, oropharynx normal, dentition normal and gingiva normal HEAD & SCALP: normocephalic and atraumatic NOSE: Normal external nose present and Normal nasal mucous membranes and turbinates present EXTERNAL EAR: Yes external ears normal EXTERNAL AUDITORY CANAL: EAC's normal TYMPANIC MEMBRANE: TM's normal bilaterally Neck/C-Spine: COMMON NORMALS: full ROM, no lymphadenopathy, supple, no meningeal signs, no JVD, Thyroid normal and No carotid bruits THYROID: Thyroid normal Chest: COMMONS NORMALS: normal inspection of the chest, normal palpation of entire chest wall, normal inspection of the breasts and normal palpation of the breasts Breast/axilla inspection: Yes normal inspection of the breasts BREAST/AXILLA PALPATION: Yes normal palpation of the breasts Resp: COMMON NORMALS: normal respiratory effort, No retractions, No use of acc essory muscles, clear to auscultation bilaterally and percussion normal AUSCULTATION: clear to auscultation bilaterally PERCUSSION: percussion normal Cardio: COMMON NORMALS: no JVD, regular rate, regular rhythm, S1 normal heart sound present, S2 normal heart sound present, No gallops present (Cardio), No clicks present (Cardio), No murmurs present (Cardio), No rub (Cardio) and Peripheral pulses 2+ throughout RATE: regular rate RHYTHM: regular rhythm HEART SOUNDS: S1 normal heart sound present and S2 normal heart sound present PERIPHERAL PULSES: Peripheral pulses 2+ throughout GI: COMMON NORMALS: Normal to inspection, nondistended, normoactive bowel sounds present, Soft to palpation, non-tender, No hepatosplenomegaly present, no masses and no bruits PALPATION: Yes Soft to palpation and Yes No hepatosplenomegaly present : COMMON NORMALS: Yes no CVA tenderness BLADDER/KIDNEY EXAM: Yes no CVA tenderness Back/Pelvis: COMMON NORMALS: no CVA tenderness, thoracic and lumbar spine normal to inspection, no thoracic nor lumbar tenderness, thoraco-lumbar ROM normal and straight leg raise negative bilaterally Extremity: COMMON NORMALS: normal to inspection, full ROM, capillary refill normal, no joint enlargement, no clubbing, cyanosis or edema, no calf tenderness and no pedal edema Neuro: COMMON NORMALS: patient oriented x3 SENSORIUM/ORIENTATION: Yes alert MENINGEAL SIGNS: Yes no meningeal signs MDM - General Adult MDM Narrative: Medical decision making narrative: This patient presents to the emergency department for monoclonal antibody infusion related to COVID-19 infection. Patient denies any increased shortness of breath. Or any significant fever. Patient and I discussed all risk and concerns. Patient states understanding he request request to proceed. Patient is medically medically stable and will proceed with monoclonal infusion. Discharge Plan Discharge Patient Disposition: Home Prescriptions: No Action albuterol sulfate 2.5 mg /3 mL (0.083 %) solution for nebulization 2.5 mg INHALATION Q4H PRN (Reason: Shortness Of Breath) RF: 0 ferrous sulfate 325 mg (65 mg iron) tablet 325 mg PO DAILY RF: 0 pantoprazole [Protonix] 40 mg tablet,delayed release (DR/EC) 40 mg PO DAILY RF: 0 baclofen 20 mg tablet 20 mg PO DAILY RF: 0 (DME) True Metrix Glucose Test Strip Strip See Rx Instructions .ROUTE .MEDSUPPLY Qty: 100 RF: 2 metoprolol tartrate 25 mg tablet 12.5 mg PO BID@0900,2100 RF: 0 morphine 15 mg tablet 15 mg PO .FIVES TIMES DAILY PRN (Reason: Pain) 30 Days Qty: 150 RF: 0 morphine 15 mg tablet 15 mg PO .FIVES TIMES DAILY PRN (Reason: Pain) 30 Days Qty: 150 RF: 0 morphine 60 mg tablet extended release 60 mg PO Q8H 30 Days Qty: 90 RF: 0 morphine 60 mg tablet extended release 60 mg PO Q8H 30 Days Qty: 90 RF: 0 pregabalin [Lyrica] 50 mg capsule 50 mg PO QID 30 Days Qty: 120 RF: 1 baclofen 20 mg tablet 20 mg PO QID 30 Days Qty: 120 RF: 1 duloxetine 60 mg capsule,delayed release(DR/EC) 60 mg PO BID@0900,2100 30 Days Qty: 60 RF: 1 (DME) pen needle, diabetic [Comfort EZ Pen Coral] 29 gauge x 1/2 needle See Rx Instructions .ROUTE .MEDSUPPLY Qty: 50 RF: 2 albuterol sulfate [ProAir HFA] 90 mcg/actuation HFA aerosol inhaler 2 puff INHALATION Q6H PRN (Reason: Shortness Of Breath) Qty: 8.5 RF: 0 (DME) blood-glucose meter [Contour Next One Meter] Misc See Rx Instructions .ROUTE .MEDSUPPLY Qty: 200 RF: 5 furosemide [Lasix] 20 mg tablet 20 mg PO DAILY PRN (Reason: Edema) RF: 0 atorvastatin 40 mg tablet 40 mg PO BEDTIME@2100 RF: 0 aspirin 81 mg tablet,delayed release (DR/EC) 81 mg PO DAILY@0900 RF: 0 tamsulosin 0.4 mg capsule 0.4 mg PO BID RF: 0 azelastine 137 mcg (0.1 %) aerosol,spray 2 spray INTRANASAL BID RF: 0 ferrous sulfate 325 mg (65 mg iron) Tablet 325 mg PO DAILY@0900 RF: 0 Jardiance 25 mg tablet 25 mg PO DAILY@09 RF: 0 Vitamin D3 1 cap PO PRN RF: 0 Anoro Ellipta 62.5-25 mcg/actuation blister with device 1 inh INHALATION BEDTIME RF: 0 ondansetron HCl [Zofran] 4 mg tablet 4 mg PO Q6H PRN (Reason: Nausea And Vomiting) RF: 0 cyanocobalamin (vitamin B-12) 1,000 mcg/mL solution See Rx Instructions .ROUTE .COMPLEX RF: 0 Discharge Orders: Discharge Order (Routine); Ordered 05/17/21 Ordered By: Robin Osborn Referrals: Tammi Ames MD [Primary Care Provider] - Coding Level of Care Code ED [employer] 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
[2021-05-17 10:50] VITALS: BP 121/84; PULSE 100; TEMP 36.9; O2SAT 95
[2021-05-17 11:58] VITALS: BP 136/93; PULSE 105; TEMP 36.9; O2SAT 94
--- NOTE | 2021-05-26 13:39 | DCPLANNER ---
auto specialty services manager had message that patient received the monoclonal antibody infusion. auto specialty services manager called the check on patient after receiving the infusion. auto specialty services manager called [phone], unable to speak with patient at this time, a voicemail was left for patient to return rn case management phone call.
== END 2021-05-17 08:10 | disposition home or self-care (01) ==
PROVIDERS: PCP Internal Medicine; Visit Provider Internal Medicine
DX: U07.1 COVID-19 (principal)
CPT/HCPCS: 96365

== ENCOUNTER 2021-05-31 13:08 | Outpatient (CLI) | payer MEDICARE, SELFPAY ==
--- NOTE | 2021-05-31 12:00 | US_ITS ---
WS: [id number] ULTRASOUND RENAL TECHNIQUE: Ultrasound examination of both kidneys. CLINICAL INFORMATION: RENAL FAILURE COMPARISON: None. FINDINGS: RIGHT: Right kidney is normal in size and appearance. Echogenicity: Normal. Cortical thickness: 1.2 cm; Normal. Hydronephrosis: None. Perinephric fluid: None. Right kidney measures: 10.6 cm x 4.4 cm x 4.4 cm. LEFT: Simple left renal cyst measuring 1.3 x 1.0 x 1.4 cm Left kidney is normal in size and appearance. Echogenicity: Normal. Cortical thickness: 1.1 cm; Normal. Hydronephrosis: None. Perinephric fluid: None. Left kidney measures: 9.2 cm x 4.3 cm x 4.7 cm. Normal visualized aorta. US/US renal BI* [id number] IMPRESSION: 1. Simple left renal cyst measuring 1.3 x 1.0 x 1.4 cm 2. No hydronephrosis in either kidney. 3. Normal bladder.
== END 2021-05-31 13:09 | disposition home or self-care (01) ==
LOC: RAD 13:25
PROVIDERS: PCP Internal Medicine; Visit Provider Urology
DX: N17.9 Acute kidney failure, unspecified (principal); N28.1 Cyst of kidney, acquired
CPT/HCPCS: 76770; 81003

== ENCOUNTER → 2021-06-09 08:50 | Outpatient (BNVA) | payer MEDICARE, SELFPAY | PROVIDERS: PCP Internal Medicine; Visit Provider Anesthesiology | DX: Z01.812 Encounter for preprocedural laboratory examination (principal); E11.9 Type 2 diabetes mellitus without complications; G89.29 Other chronic pain; M54.5 Low back pain | CPT/HCPCS: 62323; J1040; J3490 ==

== ENCOUNTER → 2021-07-19 13:15 | Outpatient (BNVA) | payer MEDICARE, SELFPAY | PROVIDERS: PCP Internal Medicine; Visit Provider Nurse Practitioner | DX: G89.29 Other chronic pain (principal); M54.2 Cervicalgia; M54.5 Low back pain; M17.0 Bilateral primary osteoarthritis of knee; M89.8X6 Other specified disorders of bone, lower leg; G62.9 Polyneuropathy, unspecified; F17.219 Nicotine dependence, cigarettes, with unspecified nicotine-induced disorders; Z79.891 Long term (current) use of opiate analgesic; Z71.6 Tobacco abuse counseling | CPT/HCPCS: 99215 ==

== ENCOUNTER 2021-07-26 08:48 | Outpatient (CLI) | payer MEDICARE, SELFPAY ==
--- NOTE | 2021-07-26 09:00 | CT_ITS ---
WS: [id number] CT scan of the abdominal aorta and arteries of the lower extremities. Additional two-dimensional rohan nal and sagittal reconstruction was performed. MIP images were also performed. 07/26/2021 Clinical Data: I73.9 - Peripheral vascular disease, unspecified Comparison: CT abdomen and pelvis, 02/16/2021. DLP: 1392.[address] scans at [facility] use at least one of these dose optimization techniques: automated e xposure control; mA and/or kV adjustment per patient size (includes targeted exams where dose is matc hed to clinical indication); or iterative reconstruction. Findings: Arterial findings: The abdominal aorta shows calcification in the wall and mural thrombosis but no aneurysm. The abdomin al aorta bifurcates into the common iliac arteries which flow into the internal and external iliac ar teries. The celiac, superior mesenteric and renal arteries are normal. There is a 2 cm occlusion of t he left common femoral artery. The right common femoral artery is normal. The superficial femoral and deep femoral arteries are patent. The popliteal arteries are normal. The arteries of the trifurcatio n are normal bilaterally. There is flow into the distal leg bilaterally. Findings of the abdomen and pelvis: The lungs show no nodules, masses or effusions. The liver, spleen, gallbladder, pancreas and adrenal glands show no acute changes. The kidneys show excellent bilateral contrast excretion with no cysts, masses, hydronephrosis or renal calculi. The stomach, small bowel and colon are normal. No abscess, a denopathy, ascites, mass, obstruction or free air is seen. The bladder is normal. The prostate is sli ghtly enlarged. No abdominal wall or inguinal hernia is seen. The bones of the lower thorax, lumbar s pine, pelvis, hips and lower extremities are not remarkable. CT/CT angio abd aorta runof [id number] Impression: 1. 2 cm occlusion of the left common femoral artery. 2. Atherosclerotic calcification and mural thrombus of the abdominal aorta. 3. Normal flow into the arteries of the lower extremities.
[2021-07-26] MEDS: iohexol 350 mg/mL 100 mL Btl IV (09:18)
== END 2021-07-26 08:49 | disposition home or self-care (01) ==
PROVIDERS: PCP Internal Medicine; Visit Provider Internal Medicine Cardiovascular Disease
DX: I73.9 Peripheral vascular disease, unspecified (principal); I70.8 Atherosclerosis of other arteries; I70.0 Atherosclerosis of aorta
CPT/HCPCS: 75635; Q9967

== ENCOUNTER → 2021-08-11 07:54 | Outpatient (BNVA) | payer MEDICARE, SELFPAY | PROVIDERS: PCP Internal Medicine; Visit Provider Anesthesiology | DX: G89.29 Other chronic pain (principal); M51.16 Intervertebral disc disorders with radiculopathy, lumbar region; M54.2 Cervicalgia; F17.210 Nicotine dependence, cigarettes, uncomplicated; Z79.891 Long term (current) use of opiate analgesic | CPT/HCPCS: 62323; J1040; J3490 ==

== ENCOUNTER 2021-08-22 11:01 | Outpatient (CLI) | payer MEDICARE, SELFPAY ==
--- NOTE | 2021-08-22 11:09 | CT_ITS ---
WS: [id number] LDCT LUNG CANCER SCREENING TECHNIQUE: Noncontrast CT of the chest with coronal and sagittal reformatted images. CLINICAL INFORMATION: NICOTINE DEPENDENCE, CIGARETTES COMPARISON: CT chest February 09, 2020 DLP: 56.56 mGy.cm DIvol: 1.[address] scans at [facility] use at least one of these dose optimization techniques: automat ed exposure control; mA and/or kV adjustment per patient size (includes targeted exams where dose is matched to clinical indication); or iterative reconstruction. FINDINGS: Mild chronic emphysematous changes. No acute pulmonary infiltrates. No focal pneumonia or pleural flu id. No mediastinal or hilar lymphadenopathy. Aortic calcification. No axillary lymphadenopathy. Adren al glands are normal. Small esophageal hiatal hernia. Splenic granulomas. Schmorl's nodes in the thor acic spine. CT/CT lung screening [id number] IMPRESSION: LUNG-RADS: 1-Negative FOLLOW UP: 12 Month: Continue annual screening with LDCT
== END 2021-08-22 11:02 | disposition home or self-care (01) ==
LOC: RAD 11:04
PROVIDERS: PCP Internal Medicine; Visit Provider Internal Medicine
DX: Z12.2 Encounter for screening for malignant neoplasm of respiratory organs (principal); F17.210 Nicotine dependence, cigarettes, uncomplicated
CPT/HCPCS: 71271

== ENCOUNTER → 2021-08-25 10:25 | Outpatient (BNVA) | payer MEDICARE, SELFPAY | PROVIDERS: PCP Internal Medicine; Referring Provider Internal Medicine Cardiovascular Disease; Visit Provider Internal Medicine Cardiovascular Disease | DX: Z01.818 Encounter for other preprocedural examination (principal); I73.9 Peripheral vascular disease, unspecified; Z20.822 Contact with and (suspected) exposure to COVID-19 | CPT/HCPCS: 80048; 85025; 85610; 87635 ==

== ENCOUNTER 2021-09-14 10:41 | Observation (INO) | payer MEDICARE, SELFPAY ==
[2021-09-07] MEDS: diphenhydrAMINE 50 mg Capsule PO (08:05)
[2021-09-07 08:37] VITALS: BP 129/78; PULSE 67; RESP 18; TEMP 36.4; O2SAT 94; BMI 26.7
--- NOTE | 2021-09-07 09:07 | W.PM.OPSFHP ---
Same Day Surgery H&P Indication for Procedure/HPI DATE OF PROCEDURE: September 07, 2021 CHIEF COMPLAINT/INDICATIONFOR SURGICAL PROCEDURE: Abnormal CTA showing occlusion of the left common femoral. Lifestyle limiting claudication in both leg PREOP DIAGNOSIS: Short occlusion of left common femoral PLANNED PROCEDRUE: Operation Date: 09/07/21 08:30 Proposed Procedures p Peripheral Diagnostic(Bilateral) - Tulio Harper MD 60-year-old male past medical history significant for hypertension hyperlipidemia PAD tobacco CAD for lifestyle limiting claudication underwent CTA with runoff which showing abdominal aorta possible mural thrombus. At the same time he was noted to have 2 cm short occlusion of left common femoral. Since patient continues to have claudication in both legs he brought was brought in for peripheral angiogram. Due to neurogenic bladder he used catheterization we will place urinary catheter. He does not have pulses in the left foot. Patient has been explained all risk benefit and alternative for the procedure he has been explained the risk for urgent emergent vascular surgery contrast-induced nephropathy major minor bleed pseudoaneurysm distal embolization leading to acute limb ischemia, limb threatening ischemia in the vascular scenario loss of limb. He would like to proceed with it. Medications/Allergies* Home Medications Medication Instructions Recorded Confirmed Type furosemide [Lasix] 20 mg PO DAILY PRN 12/03/20 09/07/21 History aspirin 81 mg PO DAILY@0900 02/16/21 09/07/21 History atorvastatin 40 mg PO BEDTIME@2100 02/16/21 09/07/21 History tamsulosin 0.4 mg PO BID 02/16/21 09/07/21 History Anoro Ellipta 1 inh INHALATION BEDTIME 02/22/21 09/07/21 History Jardiance 25 mg PO DAILY@09 02/22/21 09/07/21 History Vitamin D3 1 cap PO PRN 02/22/21 09/07/21 History ondansetron HCl [Zofran] 4 mg PO Q6H PRN 02/22/21 09/07/21 History ferrous sulfate 325 mg (65 mg 325 mg PO DAILY 05/02/21 09/07/21 History iron) tablet azelastine 137 mcg (0.1 %) nasal 2 spray INTRANASAL BID PRN 06/21/21 09/07/21 History spray aerosol metoprolol tartrate 25 mg tablet 25 mg PO DAILY tab 06/21/21 09/07/21 History fluticasone propionate 50 1 spray INTRANASAL DAILY PRN 07/19/21 09/07/21 History mcg/actuation nasal spray,suspension Lantus U-100 Insulin 44 units SUBCUT DAILY 09/06/21 09/07/21 History metformin 500 mg PO DAILY 09/06/21 09/07/21 History Allergies/Adverse Reactions Allergy/AdvReac Type Severity Reaction Status Date / Time amitriptyline Allergy ALGY-Conges Verified 09/07/21 07:48 sonia metformin Allergy ADR-Diarrhe Verified 09/07/21 07:48 a temazepam Allergy ALGY-Conges Verified 09/07/21 07:48 sonia Current Medications: Generic Name Dose Route Start Last Admin Trade Name Freq PRN Reason Stop Dose Admin Sodium Chloride 1,000 mls @ 50 mls/hr 09/07/21 07:30 09/07/21 08:31 Sodium Chloride 0.9% IV 09/08/21 03:29 Not Given .Q20H ONE Pertinent History/Comorbid Conditions* Medical History (Updated 07/19/21 @ 14:05 by KENDALL Alvarado) Allergic rhinosinusitis Chronic mesenteric ischemia Chronic neck and back pain Controlled type 2 diabetes mellitus, without long-term current use of insulin COPD, moderate Dyslipidemia Encounter for long-term opiate analgesic use Enrolled in chronic care management Essential (primary) hypertension Gastritis Heart failure with preserved ejection fraction Echo 03/2020 EF 55%, Grade II diastolic dysfunction Hypothyroidism, unspecified Incomplete bladder emptying Iron deficiency anemia Neurogenic bladder PAD (peripheral artery disease) PAD (peripheral artery disease) Primary osteoarthritis of left knee Primary osteoarthritis of right knee Seasonal allergies Tear of medial collateral ligament of left knee Vitamin D deficiency Surgical History (Updated 02/17/21 @ 11:13 by Latrell Sethi MD) H/O circumcision H/O colonoscopy 11/20/2016 H/O esophagogastroduodenoscopy 2014 H/O oral surgery Teeth extracted History of back surgery Lumbar laminectomy x 2 Family History (Updated 11/06/19 @ 09:37 by Corinne Marquez LPN) Diabetes Father Mother CAD (coronary artery disease) Bleeding disorder Father Lung disease Cancer Mother SKIN Stroke Father Denies family history of Anesthesia complication Social History Quit status (tobacco): has tried quititng Smoking risk assessment/counseling performed?: Yes Alcohol intake: never Lives independently: Yes Household members: spouse Marital status: Current occupational status: disabled History of recent travel: No Current gender identity: Male Pertinent Exam Findings alert, oriented x 3 and clear to auscultation bilaterally Conscious Sedation Assessment PATIENT ASSESSED PRIOR TO SEDATION, WITH NO CHANGE NOTED: Yes AIRWAY EVAL/ANESTHESIA PLAN: ASA II, Risks, benefits & alternatives of sedation and/or procedure discussed and Patient agrees to continue as planned Recommendations Surgery/Procedure today Coding Level of Care Code Acute Hog Confinement System 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
--- NOTE | 2021-09-07 10:15 | SUR.PREOP ---
RESCHEDULE DATE Patient rescheduled for 09/14/21. Check in at 6 am. Pre operative instructions given to the patient and the . Verbalized understanding. Discharged via wheelchair to private vehicle. driving. Disposition pleasant/kind/understanding of the situation.
--- NOTE | 2021-09-07 10:38 | SUR.PREOP ---
PROCEDURE CANCEL NOTE Patient to be rescheduled at convenience d/t 2 emergent add on cases plus a Inpatient urgent add on. IV removed- intact. Arriola removed that was placed prior to the start of the procedure in blood bank laboratory technician and was brought back to me with, before the cath began. 1400 out in clear yellow urine. Patient tolerated the removal of the arriola and the IV well. Understands the need for reschedule after speaking with the doctor and nursing staff reguarding the emergencies. Discharged in stable condition. Aware that scheduling with call with an appointment dated and time.
[2021-09-14] VITALS (20 sets, daily range): BP systolic 92–146; BP diastolic 59–87; PULSE 19–79; RESP 11–20; TEMP 36.1–37; O2SAT 95–98; BMI 25.8
[2021-09-14 06:46] LABS: Glucose Point of Care 109 mg/dL (70-110)
--- NOTE | 2021-09-14 07:21 | XACV_ITS ---
Wt: 78 kg BSA: 1.93 m2 Any Known Allergies: Other Gender: Male : 1960 Exam Type: Invasive Peripheral Vascular - Dual [place] Procedure(s): Procedure Description: Peripheral Cath Diagnostic Procedure Procedure Description: Abdominal aortic angiography Procedure Description: Lower extremities' angiography Procedure Description: Peripheral vascular Intervention Procedure Description: PV Balloon Procedure Description: Perclose Exam Priority: Routine KHAMU2, Harper; Lower Extremity Interventional Findings Peripheral intervention: Through right common femoral antegrade and left tibial retrograde approach were able to cross left common femoral vessel with the help of seeker and Glidewire. Balloon angioplasty of left common femoral was performed. Excellent angiographic result was achieved. Good two-vessel runoff was noted below the left knee. Please see inventory for balloon s and wires.. Conclusions Reason for peripheral angiogram: Critical limb ischemia of left leg Abdominal aortogram: No significant stenosis or aneurysm noted B ilateral renal arteries: No significant stenosis noted Bilateral common iliac, external iliac, internal iliac vessels did not have significant stenosis. Right common iliac luminal irregularities left common femoral chronically occluded with collaterals filling left SFA and profunda. Bilateral SFA and profunda no significant stenosis noted. Bilateral popliteal arteries no significant stenosis bilateral tibioperoneal trunk no significant stenosis. Left anterior tibial and peroneal artery has sluggish flow but no significant stenosis. Left posterior tibial vessel is occluded in the mid segment to reconstitute in the distal segment from collaterals. Right below the knee vessels were not visualized due to not able to p a n. Recommendations Continue medical management and risk factor modification. Hemodynamic Data Phase:Rest AO : 105.0 / 53.0 ( 72.0 ) @ 6:58:00 AM 75.0 / 50.0 ( 61.0 ) @ 7:06:00 AM 112.0 / 54.0 ( 75.0 ) @ 7:17:00 AM 61.0 / 48.0 ( 55.0 ) @ 7:32:00 AM 86.0 / 64.0 ( 76.0 ) @ 7:36:00 AM 95.0 / 52.0 ( 69.0 ) @ 7:39:00 AM 102.0 / 55.0 ( 73.0 ) @ 7:46:00 AM 120.0 / 52.0 ( 71.0 ) @ 7:49:00 AM Access Site Site: Right Femoral artery Sheath Size: 6 Fr Hemost... Method: Perclose (ICEdot) Hemost... Success: Successful Site: Right Pedal Sheath Size: 4 Fr Hemost... Method: TR Band Hemost... Success: Successful Procedure Details Findings Procedure Consent Obtained. Pre-Procedure Time Out. Identified patient by full name and date of as verbalized by the patient/guarantor. Does the consent match the physician's order: Yes. Accurate & Complete Informed Consent: Yes. Inpatient/Outpatient History & Physical on Chart: Yes. If H&P is completed, is and addenduem needed: Yes; If yes, is the addendum complete: Yes. Visualize and Verify Site with Patient/Guarantor: N/A. Relevant Radiology Images available: N/A. Pre-op teaching completed and patient verbalized understanding. The risks, benefits, and alternatives of sedation and/or procedure were discussed by physician. The patient agrees to continue. Procedure started. Current diagnosis: PVD. PERRLA. Strong, equal hand fiscal manager bilaterally. Lungs clear x 5 lobes. IV Site on Arrival: 20 gauge in the right anticubital. IV Fluids: 0.9% NaCl at KVO. 0 mL infused prior to screedman/laborer. Pre Procedural Pulses: left dorsalis pedis was Absent. Pre Procedural Pulses: right dorsalis pedis was 3+. Oxygen started at 2liters/min via nasal canula. right groin was prepped with chloroprep then draped in the usual sterile fashion. left groin was prepped with chloroprep then draped in the usual sterile fashion. Physician notified. Baseline sample Acquired. HR: 62 BPM. A 16Fr arriola catheter was inserted without resistance maintaining sterile technique. Bag to gravity with clear urine returning. Physician arrived. Physician scrubbed in. Time out performed with cath team. Lidocaine 1% infiltrated to the right groin. Arterial access obtained with micropuncture set. A 5FrFr UF catheter in over wire. Abdominal aortogram performed in LOPEZ @ 10 mL/sec for a total of 30 mL. Left common iliac selected and arteriogram with runoff performed @ 10 mL/sec for a total of 30 mL. Ultrasound used to obtain L posterior tibial access. Lidocaine 1% infiltrated to the left posterior tibial. Wire and dilator out, manual compression. Arterial access obtained. 4 Fr dilator inserted into L posterior tibial. 6Fr Glidesheath inserted into L posterior tibial. Glidewire inserted into L posterior tibial access. Trailblazer inserted. 2nd Glidewire inserted into R groin access. UF catheter out. 6Fr short sheath exchanged for 6Fr 45 cm Flexor sheath. Glidewire out. Left common iliac selected and arteriogram with runoff performed @ 10 mL/sec for a total of 20 mL. Glidewire inserted into R femoral access. Trailblazer removed from tibial access. Trailblazer inserted into femoral access site. Trailblzer and glidewire removed from femoral access. Glidewire inserted into femoral sheath. Glidewire removed from tibial access site. Balloon inserted over the wire to the common femoral. Inflation number : 1 A AB ARMADA 35 OTW [id number] was prepped and advanced across the Common Femoral, Left , then inflated to 10 MELCHOR for 2:00 seconds. Balloon out. Results checked. Balloon inserted over the wire to the common femoral. Inflation number : 2 A AB ARMADA 35 OTW [id number] was prepped and advanced across the Common Femoral, Left , then inflated to 6 MELCHOR for 2:00 seconds. Balloon out over wire. Femoral sheath 6Fr Flexor exchanged for 6Fr short sheath. A Right femoral angiogram was performed to determine safe placement of closure device. Post intervention angiography performed to check result. A Perclose (Desai) was successful obtaining hemostatsis at the Right Femoral artery insertion site. A TR Band was successful obtaining hemostatsis at the Right Pedal insertion site. Post Procedure: Pulses reassessed and unchanged. PERRLA. Strong, equal hand fiscal manager bilaterally. No VTE prophylaxis required. Medication's Wasted: Lidocaine 1% = 9 mL. Medication's Wasted: Other =Fentanyl 100 mcg. Medication's Wasted: Other =Versed 1.5 mg. Total IV fluids: 100 mL. Post-op diagnosis: Balloon angioplasty to Common SFA d/t complete occlusion. Complications: none. Estimated blood loss: 5mL-10mL. Procedure completed. Patient transferred by bed to 1st floor. Vital chart was stopped. Procedure Medications Start: 8:15 AM Stop: 8:15 AM Medication: Versed Amount: 0.5 mg Route: I.V. Start: 9:47 AM Stop: 9:47 AM Medication: Heparin Amount: 5000 units Route: I.V. I, the attending physician, have reviewed and verified all procedure medications. Yes, all medications given per verbal order History/Risk Factors Hypertension: Yes Dyslipidemia: Yes Peripheral Arterial Disease (PAD): Yes Myocardial Infarction ([place]): Yes Obesity: No Renal Disease: No Tobacco Use: Current/Recent(w/in 1 year) Prior Interventions PCI: No CABG: No Valve Surgery: No Report Signatures Interventional Workflow Finalized by Tulio Harper MD on 09/27/2021 07:28 PM Diagnostic Workflow Finalized by Tulio Harper MD on 09/27/2021 07:28 PM
--- NOTE | 2021-09-14 08:20 | W.PM.OPSUD ---
Surgery/Procedure H&P Update DATE OF PROCEDURE: September 14, 2021 DATE H&P PERFORMED: 09/07/21 H&P UPDATE INFORMATION: I have reviewed H&P completed within last 30 days and I have examined patient prior to procedure PREOP DIAGNOSIS: Short occlusion of left common femoral PLANNED PROCEDURE: Operation Date: 09/14/21 07:00 Proposed Procedures p Peripheral Diagnostic(Bilateral) - Tulio Harper MD PATIENT REASSESSED PRIOR TO SEDATION, WITH NO CHANGE NOTED: Yes PHYSICAL EXAM: oriented x 3 and clear to auscultation bilaterally OTHER PERTINENT EXAM FINDINGS: Patient is sleepy, he took morphine at home he takes Lyrica according to him he is not sleeping for the last couple of days. We will closely monitor him I am not planning to give him more fentanyl or Versed. He has been explained risk for intubation respiratory depression and apnea. AIRWAY EVAL/ANESTHESIA PLAN: ASA II and Risks, benefits & alternatives of sedation and/or procedure discussed ADDITIONAL INFORMATION: Patient and his has been explained all risk benefit and alternative for the procedure including risk for intubation due to respiratory depression since he is on high dose of narcotic analgesics at home, stroke contrast-induced nephropathy major minor bleed urgent emergent vascular surgery acute limb ischemia leading to limb loss. He and his agrees to it he would like to proceed with it
--- NOTE | 2021-09-14 10:23 | PC.NURSE ---
Patient arrived from slab conditioner supervisor. Site was assessed by this nurse, HAZEL Gruber, and HAZEL Anaya. No hematoma present in groin access or left posterior tibial access. Patient is resting in bed with even and unlabored breathing. is at bed side. Patient will be monitored Q15min. has been educated regarding activity restriction of the patient. has been oriented room and use of call bray in case of needing nurses assistance.
[2021-09-14] MEDS: sodium chloride 0.9% 1,000 ML 100 ML IV (10:30)
--- NOTE | 2021-09-14 14:30 | PC.NURSE ---
TR band removed, dressing in place.
[2021-09-14] MEDS: clopidogrel 300 mg Tablet PO (14:34)
[2021-09-14] MEDS: aspirin 81 mg EC Tablet PO (14:34)
[2021-09-14] MEDS: morphine IR 15 mg Tablet PO (23:57)
[2021-09-15 00:02] VITALS: BP 136/76; PULSE 75; RESP 12; TEMP 36.6; O2SAT 96
[2021-09-15 00:24] VITALS: PULSE 82; RESP 18; O2SAT 97
--- NOTE | 2021-09-15 02:47 | PC.NURSE ---
Addendum entered by Rosalba Elmore RN 09/15/21 04:07: Orders received from Dr. Harper to resume patients home medication list. Original Note: Around 2229: Patient c/o pain. Notified Dr. Harper. Orders received, see DEC.
[2021-09-15 04:10] LABS: Basophils # 0.1 10^3/uL (0.0-0.1); Basophils % 0.6 %; Eosinophils # 0.3 10^3/uL (0.0-0.8); Eosinophils % 3.5 %; Hematocrit 39.5 % (42.0-52.0); Hemoglobin 12.7 g/dL (11.7-16.6); Lymphocytes # 2.5 10^3/uL (0.8-4.8); Lymphocytes % 27.8 %; Mean Corpuscular HGB Conc 32.2 g/dL (30.0-36.0); Mean Corpuscular Hemoglobin 30.7 pg (28.0-34.0); Mean Corpuscular Volume 95.4 fl (80-94); Mean Platelet Volume 12.1 fL (7.4-10.4); Monocytes % 10.8 %; Neutrophils # 5.06 10^3/uL (1.8-7.7); Nucleated Red Blood Cells % 0 %; Platelet Count 152 10^3/cmm (130-400); Red Blood Count 4.14 10^6/uL (4.1-5.3); Red Cell Distribution Width 14.9 % (12.1-15.1); White Blood Count 8.9 10^3/uL (4.0-10.0)
[2021-09-15 04:35] LABS: Blood Urea Nitrogen 16 mg/dL (6-20); Calcium 8.1 mg/dL (8.5-10.5); Carbon Dioxide 26 mmol/L (22-29); Chloride 103 mmol/L (98-107); Glomerular Filtration Rate 115.8 mL/min (90-130); Glucose 117 mg/dL (65-115); Osmolality Calculated 290 mOsm/kg (285-295); Sodium 139 mmol/L (136-145)
[2021-09-15 04:36] LABS: Anion Gap 14.4 (5-19); Potassium 4.4 mmol/L (3.5-5.1)
[2021-09-15 05:11] VITALS: PULSE 75
[2021-09-15 05:17] LABS: Slide Review Slide Review Perform
[2021-09-15 06:33] LABS: Glucose Point of Care 145 mg/dL (70-110)
[2021-09-15] MEDS: metoprolol tartrate 25 mg Tablet PO (08:30)
[2021-09-15] MEDS: pregabalin 100 mg Capsule PO ×2 (08:33→13:40)
[2021-09-15] MEDS: baclofen 10 mg Tablet 20 MG PO ×2 (08:34→13:40)
[2021-09-15] MEDS: aspirin 81 mg EC Tablet PO (08:34)
[2021-09-15] MEDS: tamsulosin 0.4 mg Capsule PO (08:35)
[2021-09-15] MEDS: duloxetine 60 mg Capsule PO (09:42)
--- NOTE | 2021-09-15 10:09 | PC.CHAP ---
Pastoral Care Encounter/Spiritual Assessment Type of Contact [] Declined juice weigher visit [] Patient/Family/Request visit [] Outpatient visit [] Follow-up visit [] Physician referral [] Code/Alert [x] Routine visit [] Staff referral [] Actively dying [] Patient sleeping [] Family support [] [] Out of room [] Palliative care [] [x] Receiving care in room [] Pre-surgical visit [] Trauma [] Long length of stay [] ICU visit [] Other: Relational/Emotional Strength [x] Patient feels connected with others/family/visitors/staff [] Distress [] Loneliness/isolation [] Abandonment Spirituality of Patient [x] Person of Maricel [] Attends Congregational of their [place] [x] Believes in Prayer [] Reads Bible or Yarsani materials [] There are Spiritual issues to be addressed Forestry Fire Aid Interventions [x] Prayer [x] Active listening [x] Non-anxious presence [x] Spiritual/emotional support [] Crisis/trauma care [x] Spiritual counseling [] Bereavement support [] Provided bereavement packet [] Provided Bible/devotional materials [] Provided toy/stuffed animal, coloring book to patient or family member [] Provided Communion [] Anointing/[place] [] Salvation [x] Completed spiritual assessment [] Other: Impact on Illness or Injury [] Angry [] Fearful [] Anxious [] Often cries [] Exhaustion [] Unable to work [] Unable to attend [facility] [] Unable to walk/stand [] Unable to read [] Unable to drive [] Unable to eat/drink [] Unable to sleep [] Unable to be with family [] Patient intubated [] Other: Summary had siddharth on leg blood clot had a siddharth feels b marcelo postive has a good attitude is going home today or tomorrow + 1 Time spent with patient 10 mins
[2021-09-15 13:34] VITALS: BP 132/76; PULSE 75; RESP 16; TEMP 36.3
[2021-09-15] MEDS: clopidogrel 75 mg Tablet PO (13:40)
--- NOTE | 2021-09-15 14:16 | PM.DCS ---
Discharge Providers Date of Admission: 09/14/21 10:41 Date of Discharge: September 15, 2021 Attending Provider at Admission: Tulio Harper MD Attending Provider at Discharge: Tulio Harper MD Primary Care Provider: Tammi Ames MD Reason for Visit Reason for Visit: 75777 [id number] Hospital Course Hospital Course 60-year-old male past medical history significant for hypertension hyperlipidemia coronary artery disease neurogenic bladder for lifestyle limiting claudication and peripheral vascular disease diagnosed on the basis of CTA with runoff underwent peripheral angiogram noted to have chronically occluded left common femoral vessel with collaterals to SFA. Right common femoral and left posterior tibial approach was adopted to cross the lesion. Balloon angioplasty was performed with excellent angiographic result achieved. Post FAN RUNNER course remains uncomplicated. Patient did fine overnight. He has good bilateral pulses and posterior tibial. He denies any complaint. Both leg and feet looks good without any complication. Right groin mild bruising no hematoma no pseudoaneurysm. Left posterior tibial wound looks good no bruising no hematoma. He is being discharged home. We will continue Plavix for 3 months. Physical Exam Narrative: EXAM NARRATIVE: GENERAL: Patient is alert, awake and oriented x3. Right groin minor bruising, left posterior tibial artery wound looks good NECK: No jugular vein distension. HEENT: No cyanosis. No icterus. No pallor. HEART: Regular S1 and S2. No murmur, rub or gallop. LUNGS: Clear to auscultate bilaterally. ABDOMEN: Soft, nontender and nondistended. Positive bowel sounds. No guarding, rebound or tenderness. CENTRAL NERVOUS SYSTEM: Grossly nonfocal. EXTREMITIES: Lower extremities without edema bilaterally. Pulses palpable in the lower extremities, both dorsalis pedis and posterior tibial. Discharge Data Data Completed and Pending: Pending at discharge Category Date Time Status STAFF TRAINING AND DEVELOPMENT MANAGER request for service Routin e Exams 09/14/21 07:21 Taken Labs from last 24 hours 09/15/21 09/15/21 09/15/21 05:59 02:15 02:15 WBC 8.9 RBC 4.14 Hgb 12.7 Hct 39.5 L MCV 95.4 H MCH 30.7 MCHC 32.2 RDW 14.9 Plt Count 152 MPV 12.1 H Neut % (Auto) 57.0 Lymph % (Auto) 27.8 Coal % (Auto) 10.8 Eos % (Auto) 3.5 Baso % (Auto) 0.6 Neut # (Auto) 5.06 Lymph # (Auto) 2.5 Coal # (Auto) 1.0 H Eos # (Auto) 0.3 Baso # (Auto) 0.1 Nucleated RBC % (a uto) 0 Nucleated RBCs # 0.0 Sodium 139 Potassium 4.4 Chloride 103 Carbon Dioxide 26 Anion Gap 14.4 BUN 16 Creatinine 0.7 GFR Calculation 115.8 Glucose 117 H POC Glucose 145 H Calculated Osmolal ity 290 Calcium 8.1 L Vitals: Last Vital Signs Temp 97.4 F L 09/15/21 13:34 Pulse 75 09/15/21 13:34 Resp 16 09/15/21 13:34 BP 132/76 09/15/21 13:34 Pulse Ox 97 09/15/21 00:24 Discharge Plan Discharge Patient Disposition: Home Condition: Stable Prescriptions: New clopidogrel 75 mg Tablet 75 mg PO DAILY Qty: 90 RF: 0 Continued ferrous sulfate 325 mg (65 mg iron) tablet 325 mg PO DAILY RF: 0 metoprolol tartrate 25 mg tablet 25 mg PO DAILY RF: 0 fluticasone propionate [Allergy Relief (fluticasone)] 50 mcg/actuation spray,suspension 1 spray intranasal DAILY PRN (Reason: Runny Nose) RF: 0 duloxetine 60 mg capsule,delayed release(DR/EC) 60 mg PO BID@0900,2100 Qty: 60 RF: 2 baclofen 20 mg tablet 20 mg PO QID 30 Days Qty: 120 RF: 2 morphine 15 mg tablet 15 mg PO .FIVES TIMES DAILY PRN (Reason: Pain) 30 Days Qty: 150 RF: 0 morphine 60 mg tablet extended release 60 mg PO Q8H 30 Days Qty: 90 RF: 0 pregabalin 100 mg capsule 100 mg PO QID Qty: 120 RF: 2 (DME) pen needle, diabetic [Comfort EZ Pen [place]] 29 gauge x 1/2 needle See Rx Instructions .ROUTE .MEDSUPPLY Qty: 50 RF: 2 albuterol sulfate [ProAir HFA] 90 mcg/actuation HFA aerosol inhaler 2 puff INHALATION Q6H PRN (Reason: Shortness Of Breath) Qty: 8.5 RF: 0 (DME) blood-glucose meter [FidbacksTouch Ultra2 Meter] Misc See Rx Instructions .ROUTE .MEDSUPPLY RF: 5 (DME) lancets [OneTouch Delica Lancets] 30 gauge misc See Rx Instructions .Route Qty: 100 RF: 0 (DME) OneTouch Ultra Test Strip See Rx Instructions .ROUTE .MEDSUPPLY Qty: 300 RF: 3 Lantus U-100 Insulin 44 units pen injector 44 units SUBCUT DAILY RF: 0 metformin 500 mg tablet 500 mg PO DAILY RF: 0 furosemide [Lasix] 20 mg tablet 20 mg PO DAILY PRN (Reason: Edema) RF: 0 atorvastatin 40 mg tablet 40 mg PO BEDTIME@2100 RF: 0 aspirin 81 mg tablet,delayed release (DR/EC) 81 mg PO DAILY@0900 RF: 0 tamsulosin 0.4 mg capsule 0.4 mg PO BID RF: 0 azelastine 137 mcg (0.1 %) aerosol,spray 2 spray INTRANASAL BID PRN (Reason: Runny Nose) RF: 0 Jardiance 25 mg tablet 25 mg PO DAILY@09 RF: 0 Vitamin D3 1 cap PO PRN RF: 0 Anoro Ellipta 62.5-25 mcg/actuation blister with device 1 inh INHALATION BEDTIME RF: 0 ondansetron HCl [Zofran] 4 mg tablet 4 mg PO Q6H PRN (Reason: Nausea And Vomiting) RF: 0 Discharge Orders: Discharge Order (Routine); Ordered 09/15/21 Ordered By: Tulio Harper Referrals: Tulio Harper MD [Physician] - ([facility] will contact you to schedule an follow-up appointment in 6 to 8 weeks. If you haven't heard from them by Sunday afternoon. Please call [phone]) Piedad Lanier FNP [Nurse Practitioner] - ([facility] will contact you to schedule an follow-up appointment in 1 week. If you haven't heard from them by Sunday afternoon. Please call ) Discharge Diet: Diabetic Discharge Activity: Increase activity as tolerated Patient Instructions: Clopidogrel (By mouth) (Plavix), Peripheral Vascular Disease (DC), Peripheral Vascular Angioplasty (DC) Activity Restrictions/Additional Instructions: Follow-up with Piedad Lanier cardiology nurse practitioner in 7 days. Follow-up with Dr. Harper in 6 to 8 weeks. Discharge Attestations Time Spent in Discharge Care*: less than 30 min Specific Discharge Activities: educating patient Quality Metrics Clinical Quality Measures During this hospital stay, did patient experience: None Coding Level of Care Code Established Pt Acute Chg FW DC note Patient Type Established History Detailed Exam Detailed Medical Decision Making Moderate Complexity
== END 2021-09-15 14:45 | disposition home or self-care (01) ==
LOC: CSU 10:42
PROVIDERS: Admitting Provider Internal Medicine Cardiovascular Disease; PCP Internal Medicine; Visit Provider Internal Medicine Cardiovascular Disease
DX: I77.1 Stricture of artery (principal); I70.213 Atherosclerosis of native arteries of extremities with intermittent claudication, bilateral legs; E78.5 Hyperlipidemia, unspecified; I25.10 Atherosclerotic heart disease of native coronary artery without angina pectoris; F17.210 Nicotine dependence, cigarettes, uncomplicated; N31.9 Neuromuscular dysfunction of bladder, unspecified; E11.9 Type 2 diabetes mellitus without complications; E55.9 Vitamin D deficiency, unspecified; I11.0 Hypertensive heart disease with heart failure; I50.9 Heart failure, unspecified; J44.9 Chronic obstructive pulmonary disease, unspecified; Z79.82 Long term (current) use of aspirin; Z79.4 Long term (current) use of insulin; Z79.84 Long term (current) use of oral hypoglycemic drugs
CPT/HCPCS: 36415; 36416; 37224; 75625; 75710; 80048; 82962; 85025; C1725; C1760; C1769; C1887; C1894; G0378; J1644; J2250; J3010; J3490; J7030; Q0163; Q9967

== ENCOUNTER → 2021-09-16 10:55 | Outpatient (BNVA) | payer MEDICARE, SELFPAY | PROVIDERS: PCP Internal Medicine; Visit Provider Anesthesiology | DX: G89.29 Other chronic pain (principal); M54.50 Low back pain, unspecified; M54.2 Cervicalgia; M17.0 Bilateral primary osteoarthritis of knee; M89.8X6 Other specified disorders of bone, lower leg; G62.9 Polyneuropathy, unspecified; F17.219 Nicotine dependence, cigarettes, with unspecified nicotine-induced disorders; Z79.891 Long term (current) use of opiate analgesic; Z71.6 Tobacco abuse counseling | CPT/HCPCS: 99214 ==

== ENCOUNTER 2021-09-20 10:29 | Outpatient (CLI) | payer MEDICARE, SELFPAY ==
[2021-09-20 12:40] LABS: Basophils # 0.1 10^3/uL (0.0-0.1); Basophils % 0.5 %; Eosinophils # 0.1 10^3/uL (0.0-0.8); Eosinophils % 0.9 %; Hematocrit 47.1 % (42.0-52.0); Hemoglobin 16.1 g/dL (11.7-16.6); Lymphocytes # 3.4 10^3/uL (0.8-4.8); Lymphocytes % 23.1 %; Mean Corpuscular HGB Conc 34.2 g/dL (30.0-36.0); Mean Corpuscular Hemoglobin 30.8 pg (28.0-34.0); Mean Corpuscular Volume 90.1 fl (80-94); Mean Platelet Volume 10.7 fL (7.4-10.4); Monocytes # 0.9 10^3/uL (0.2-0.9); Monocytes % 6.2 %; Neutrophils # 10.03 10^3/uL (1.8-7.7); Neutrophils % 68.8 %; Nucleated Red Blood Cells % 0 %; Platelet Count 276 10^3/cmm (130-400); Red Blood Count 5.23 10^6/uL (4.1-5.3); Red Cell Distribution Width 14.6 % (12.1-15.1); White Blood Count 14.6 10^3/uL (4.0-10.0)
[2021-09-20 13:03] LABS: LAB Peripheral Smear Sent for Review
[2021-09-20 13:13] LABS: Alanine Aminotransferase 17 U/L (0-41); Albumin Level 4.3 g/dL (3.5-5.2); Alkaline Phosphatase 163 IU/L (40-130); Anion Gap 19.3 (5-19); Aspartate Amino Transferase 15 U/L (0-40); Blood Urea Nitrogen 20 mg/dL (6-20); C Reactive Protein 7.6 mg/L (0.0-4.9); Calcium 9.4 mg/dL (8.5-10.5); Carbon Dioxide 24 mmol/L (22-29); Chloride 99 mmol/L (98-107); Globulin 1.9 g/dL (1.3-4.6); Glomerular Filtration Rate 99.3 mL/min (90-130); Glucose 124 mg/dL (65-115); Lactate Dehydrogenase 230 U/L (135-225); Osmolality Calculated 288 mOsm/kg (285-295); Potassium 5.3 mmol/L (3.5-5.1); Sodium 137 mmol/L (136-145); Total Bilirubin 0.6 mg/dL (0.15-1.2); Total Protein 6.2 g/dL (6.6-8.7)
--- NOTE | 2021-09-20 18:42 | ONC CON_ITS ---
Dr. Barajas New Patient Note Patient: Troy Goode Unit #: [id number]: [id number] Dicatated By: Tyshawn Barajas M.D.Date of Visit: Sep 20, 2021 Onc MED New Patient/Consult Referring Physician: Dr. SUSAN NASCIMENTO M.D. Chief Complaint: Leukocytosis. History of Present Illness: This is a 60-year-old man with mild leukocytosis. He has multiple medical illnesses including hypertension, hyperlipidemia, type 2 diabetes, coronary artery disease, peripheral arterial disease, and COPD. He also has degenerative arthritis and degenerative disease of the spine. He has been disabled as result of a back injury in 1988. He has been seeing Dr. Nascimento for primary care, and he was noted to have mildly elevated white blood cell count in the range of 13,000 on a CBC in Mar 2021 and again in Jul 2021. Both studies showed normal hemoglobin/hematocrit levels and platelet counts. In reviewing his records in [facility], he has had mildly elevated white blood cell count on multiple CBCs dating back to Oct 2019, though during that time period his white count has been normal on several occasions. The highest recorded white blood cell count was at 29,700 in Nov 2020. At that time he had been admitted to the hospital after he had been found unresponsive at home. He had associated encephalopathy and hypothermia, and he required intubation/mechanical ventilation. He recovered uneventfully. A specific cause was not determined. During that admission he was found to have evidence of peripheral arterial disease, and he ultimately underwent a balloon angioplasty procedure to the left common femoral artery on 09/14/2021. He has been feeling better following the recent angioplasty procedure, though generally his energy has been poor, and he has had very limited activity. He is ambulatory, but mostly sedentary. ECOG score is 3. Appetite is fair. He has had weight loss in the range of 50 pounds, but recently it has stabilized. He has not had documented fever. He occasionally feels hot, and he sometimes has sweating. He has constant allergy related sinus symptoms, sometimes with associated sore throat. He also sometimes has cough with it. He has shortness of breath, and he is on home oxygen. He does not complain of chest pain. He sometimes has nausea with his sinus drainage. He has some opioid related constipation. He has neurogenic bladder, and he occasionally has to catheterize. He has chronic pain in his neck and in his mid to lower back. The back pain tends to radiate into both legs. He does not complain of headache. He has some orthostatic dizziness. He has numbness/tingling in his legs and feet. He has chronic insomnia. Past Medical History: His medical history includes allergic rhinitis, chronic insomnia, chronic obstructive pulmonary disease, coronary artery disease, degenerative arthritis, degenerative disease of the spine, hyperlipidemia, hypertension, neurogenic bladder, peripheral arterial disease, and type II diabetes. He had Covid virus infection in April 2021. Past Surgical History: His surgical/procedural history includes arthroscopic left knee surgery, left shoulder surgery, lumbar spine surgery with fusion in 1989 and 1990, and left common femoral artery balloon angioplasty in 2020. Medications: Anoro Ellipta 1 Puff(s) (of 62.5-25 mcg/inh) Aerosol Powder, Breath Activated Inhalation daily, Aspirin 81 1 Tablet (of 81 mg) Tablet, enteric coated Oral daily, Atorvastatin Calcium 1 Tablet (of 40 mg) Oral daily, Azelastine HCl 2 Jay Em(s) (of 0.1 %) Solution Nasal b.i.d., B-12 Compliance Injection 1 mL (of 1000 mcg/mL) Injection, Baclofen 1 Tablet (of 20 mg) Oral t.i.d., DULoxetine HCl 1 Capsule (of 60 mg) Capsule Delayed Release Particles Oral b.i.d., Ferrous Sulfate 1 Tablet (of 325 (65 fe) mg) Oral daily, Flomax 1 Capsule (of 0.4 mg) Oral b.i.d., Furosemide 1 Tablet (of 20 mg) Oral daily, Jardiance 1 Tablet (of 25 mg) Oral daily, Lantus SoloStar 44 Unit(s) (of 100 Units/mL) Subcutaneous daily, metFORMIN HCl 1 Tablet (of 500 mg) Oral daily, Metoprolol Tartrate 1 Tablet (of 25 mg) Oral b.i.d., Morphine Sulfate 1 Tablet (of 15 mg) Oral 5x/d, Morphine Sulfate ER 1 Capsule (of 60 mg) Capsule SR 24 HR Oral q 12 hours, Narcan 1 Jay Em(s) (of 4 mg/0.1mL) Liquid Nasal once PRN, Ondansetron HCl 1 Tablet (of 4 mg) Oral q 6 hours PRN, Pantoprazole Sodium 1 Tablet (of 40 mg) Tablet, enteric coated Oral daily, Plavix 1 Tablet (of 75 mg) Oral daily, Pregabalin 1 Capsule (of 50 mg) Oral b.i.d., Singulair 1 Tablet (of 10 mg) Oral daily, Sucralfate 10 mL (of 1 g/10mL) Suspension Oral t.i.d. Allergies: Amitriptyline HCl, metFORMIN HCl, and Temazepam. Social History: Mr. Goode is . 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 He had a work-related injury in 1988, and he has been disabled since 1991. He has a history of smoking for 35 years, previously up to 1 pack of cigarettes daily. He currently smokes 1/4 pack/day. He does not drink alcohol, and he has had only minimal alcohol use in the past. Family History: His father had diabetes and prostate cancer and he also had recurrent anemia associated with acquired von Willebrand's disease. He with complications following aspiration pneumonia. Mother had heart disease and diabetes, and she of stroke. A brother also has diabetes. Review Of Symptoms: Constitutional - His energy has been poor. He is ambulatory, but he has very limited activity. Appetite is just fair. He has had weight loss in the range of 50 pounds, that now appears to be stabilizing. He has not had documented fever. He occasionally feels hot and he sometimes has sweating. ECOG score is three, Eyes - He has had age-related visual decline, ENMT - No sinus congestion/drainage. He has hearing loss and tinnitus. He has constant allergy related sinus symptoms. His says that his allergies are severe. No mouth sores. He sometimes has sore throat. No difficulty swallowing, Hematologic/Lymphatic - He has a lot of bruising. No other bleeding, Respiratory - He has shortness of breath and he is on home oxygen. He has some cough with his allergies. No pleuritic pain or hemoptysis, Cardiovascular - No angina pain. No palpitations, Gastrointestinal - He sometimes has nausea, attributable to sinus drainage. No heartburn or acid reflux. He has some opioid related constipation. No blood in the stool or black stools, Genitourinary (M) - He has neurogenic bladder and occasionally requires catheterization. He also has urinary frequency and nocturia. No dysuria or hematuria. No urgency or incontinence, Musculoskeletal - He has chronic pain in his neck and in his mid to lower back. The back pain radiates into both legs, Integumentary - No skin rash or other skin changes, Neurologic - He does not complain of headache. He has dizziness if he gets up too quick. He has numbness/tingling in his legs and feet, Psychiatric - No anxiety or depression. He has chronic insomnia. Vital Signs: Performed on Sep 20, 2021 16:08: 6, 7, 26.09, 1.88 sq.m, 67.25 in, 99 %, 77 /min, 18 /min, 117/80 mm(hg), 97.4 F (LOW), and 167.8 lbs (HIGH). Physical Examination: Constitutional - He appears chronically ill, Eyes - Sclerae nonicteric. Conjunctivae clear, ENMT - No lesions noted in the oral cavity, Neck - No mass or thyromegaly, Hematologic/Lymphatic - No cervical, clavicular, or axillary adenopathy, Respiratory - Lungs are clear with diminished air movement bilaterally, Cardiovascular - Heart rhythm is regular. There is no murmur, gallop, or rub noted, Abdomen - Mildly distended and tympanic. Liver and spleen are not enlarged. There is no abdominal mass or ascites noted and there is no inguinal adenopathy, Extremities - No edema. Posterior tibial pulses are palpable bilaterally. There is extensive purpura on both arms and there is also a large area of ecchymosis on the upper left arm, Integumentary - No rashes. No suspicious skin lesions noted, Neurologic - He does not appear to have any focal neurologic deficit. Problem List: 1. Mild leukocytosis. Etiology is uncertain. It would appear to be most likely reactive, but at this point a myeloproliferative disorder is not excluded. 2. Hypertension. 3. Hyperlipidemia. 4. Type 2 diabetes. 5. Coronary artery disease. 6. Peripheral arterial disease. 7. COPD. 8. Allergic rhinitis. 9. Degenerative arthritis/degenerative disease of the spine with chronic pain. 10. Neurogenic bladder. 11. Chronic insomnia. Problems Addressed with this Encounter and Plan: Patient with variable but mild leukocytosis. It appears to most likely be reactive, though I am not certain of the specific underlying cause. At this point a myeloproliferative disorder is not excluded. The laboratory findings were reviewed with the patient and his , and we discussed the clinical implications. From a practical standpoint, the main considerations are to exclude chronic myeloid leukemia, for which there is specific treatment available, and to exclude underlying malignancy. With regard to the latter, he did have a recent screening chest CT which was negative. I would otherwise just recommend additional laboratory studies today to include CBC, comprehensive metabolic profile, sed rate and CRP level, and a FISH study for BCR/abl. I also will review the blood smear. He will have further evaluation as indicated. In all likelihood, he will just be followed expectantly. Signed By: Tyshawn Barajas M.D. <<Signature on File>>
[2021-09-21 17:09] LABS: Erythrocyte Sedimentation Rate 17 mm/hr (0-10)
== END 2021-09-20 10:30 | disposition home or self-care (01) ==
LOC: ONCMED 10:37
PROVIDERS: PCP Internal Medicine; Visit Provider Internal Medicine Medical Oncology
DX: D72.829 Elevated white blood cell count, unspecified (principal); I10 Essential (primary) hypertension; E78.5 Hyperlipidemia, unspecified; E11.59 Type 2 diabetes mellitus with other circulatory complications; I25.10 Atherosclerotic heart disease of native coronary artery without angina pectoris; I73.9 Peripheral vascular disease, unspecified; J44.9 Chronic obstructive pulmonary disease, unspecified; J30.9 Allergic rhinitis, unspecified; M47.9 Spondylosis, unspecified; G89.29 Other chronic pain; N31.9 Neuromuscular dysfunction of bladder, unspecified; F51.04 Psychophysiologic insomnia; Z79.899 Other long term (current) drug therapy
CPT/HCPCS: 36415; 80053; 83615; 85025; 85651; 86140; 99204

== ENCOUNTER 2021-09-21 07:26 | Outpatient (CLI) | payer MEDICARE, SELFPAY ==
[2021-09-24 19:09] LABS: P190 BCR ALB1 NOT DETECTED; P210 BCR ALB1 NOT DETECTED; Prior Results NG; Source blood
== END 2021-09-21 07:27 | disposition home or self-care (01) ==
LOC: ONCMED 07:28
PROVIDERS: PCP Internal Medicine; Visit Provider Internal Medicine Medical Oncology
DX: D72.829 Elevated white blood cell count, unspecified (principal)
CPT/HCPCS: 36415; 81206

== ENCOUNTER → 2021-11-15 13:39 | Outpatient (BNVA) | payer MEDICARE, SELFPAY | PROVIDERS: PCP Internal Medicine; Visit Provider Anesthesiology | DX: G89.29 Other chronic pain (principal); M54.2 Cervicalgia; M54.50 Low back pain, unspecified; G62.9 Polyneuropathy, unspecified; M89.8X6 Other specified disorders of bone, lower leg; Z79.891 Long term (current) use of opiate analgesic; F17.210 Nicotine dependence, cigarettes, uncomplicated | CPT/HCPCS: 99214 ==

== ENCOUNTER → 2021-12-08 11:25 | Outpatient (BNVA) | payer MEDICARE, SELFPAY | PROVIDERS: PCP Internal Medicine; Visit Provider Specialist | DX: M17.0 Bilateral primary osteoarthritis of knee (principal); S89.90XA Unspecified injury of unspecified lower leg, initial encounter; X58.XXXA Exposure to other specified factors, initial encounter | CPT/HCPCS: 73560; 73565 ==

== ENCOUNTER 2022-01-26 15:01 | Outpatient (CLI) | payer MEDICARE, SELFPAY ==
--- NOTE | 2022-01-26 15:16 | XR_ITS ---
WS: [id number] XR hand RT min 3V* [id number] REASON FOR EXAM: PAIN IN RIGHT HAND FINDINGS: No fracture or focal bone lesion. Mild narrowing with subchondral sclerosis in the DIP joints of the thumb and fingers. Similar arthrop athy in the PIP joints of the fourth and fifth fingers. XR/XR hand RT min 3V* [id number] IMPRESSION: Mild osteoarthritis as above.
== END 2022-01-26 15:02 | disposition home or self-care (01) ==
PROVIDERS: PCP Internal Medicine; Visit Provider Internal Medicine
DX: M19.041 Primary osteoarthritis, right hand (principal)
CPT/HCPCS: 73130

== ENCOUNTER 2022-02-01 11:48 | Outpatient (CLI) | payer MEDICARE, SELFPAY ==
[2022-02-01 12:29] LABS: Basophils # 0.1 10^3/uL (0.0-0.1); Eosinophils % 9.2 %; Hematocrit 43.2 % (42.0-52.0); Lymphocytes % 36.4 %; Mean Corpuscular HGB Conc 32.4 g/dL (30.0-36.0); Mean Corpuscular Hemoglobin 28.5 pg (28.0-34.0); Mean Platelet Volume 11.5 fL (7.4-10.4); Monocytes # 0.8 10^3/uL (0.2-0.9); Monocytes % 7.1 %; Neutrophils # 5.07 10^3/uL (1.8-7.7); Neutrophils % 46.1 %; Nucleated Red Blood Cells % 0 %; Platelet Count 197 10^3/cmm (130-400); Red Blood Count 4.91 10^6/uL (4.1-5.3); Red Cell Distribution Width 15.2 % (12.1-15.1)
[2022-02-01 12:37] LABS: Erythrocyte Sedimentation Rate 18 mm/hr (0-10)
[2022-02-01 13:04] LABS: Alanine Aminotransferase 17 U/L (0-41); Albumin Level 4.4 g/dL (3.5-5.2); Alkaline Phosphatase 163 IU/L (40-130); Aspartate Amino Transferase 12 U/L (0-40); Blood Urea Nitrogen 18 mg/dL (6-20); Calcium 9.3 mg/dL (8.5-10.5); Carbon Dioxide 21 mmol/L (22-29); Chloride 102 mmol/L (98-107); Glucose 174 mg/dL (65-115); Osmolality Calculated 288 mOsm/kg (285-295); Slide Review Slide Review Perform; Sodium 136 mmol/L (136-145); Total Bilirubin 0.5 mg/dL (0.15-1.2); Total Protein 6.4 g/dL (6.6-8.7)
[2022-02-01 13:05] LABS: LAB Peripheral Smear Sent for Review
[2022-02-01 14:00] LABS: Lactate Dehydrogenase 153 U/L (135-225)
--- NOTE | 2022-02-01 19:34 | ONC FU_ITS ---
Debi Tenorio Progress Note Patient: Troy Goode Unit #: [id number]: [id number] Dicatated By: Debi Tenorio N.P.Date of Visit:Feb 01, 2022 Onc MED Follow-up/Prog Note Chief Complaint: Leukocytosis. History of Present Illness: This is a 60-year-old man with mild leukocytosis. He has multiple medical illnesses including hypertension, hyperlipidemia, type 2 diabetes, coronary artery disease, peripheral arterial disease, and COPD. He also has degenerative arthritis and degenerative disease of the spine. He has been disabled as result of a back injury in 1988. He has been seeing Dr. Ames for primary care, and he was noted to have mildly elevated white blood cell count in the range of 13,000 on a CBC in Mar 2021 and again in Jul 2021. Both studies showed normal hemoglobin/hematocrit levels and platelet counts. In reviewing his records in [facility], he has had mildly elevated white blood cell count on multiple CBCs dating back to Oct 2019, though during that time period his white count has been normal on several occasions. The highest recorded white blood cell count was at 29,700 in Nov 2020. At that time he had been admitted to the hospital after he had been found unresponsive at home. He had associated encephalopathy and hypothermia, and he required intubation/mechanical ventilation. He recovered uneventfully. A specific cause was not determined. During that admission he was found to have evidence of peripheral arterial disease, and he ultimately underwent a balloon angioplasty procedure to the left common femoral artery on 09/14/2021. Patient presents today for follow-up. He has chronic fatigue. His appetite is good. He denies fever, chills, night sweats. He does have some sinus drainage which is more of a chronic condition. He denies shortness of breath, cough, chest pain. No GI or problems. He has chronic back pain that radiates down into both legs and also causes muscle spasms. He requires a cane for ambulation and sometimes has to use a wheelchair. He denies headaches or dizziness. Review Of Symptoms: See above. Past Medical History: Allergic rhinitis Chronic insomnia Chronic obstructive pulmonary disease Coronary artery disease Degenerative arthritis Degenerative disease of the spine Hyperlipidemia Hypertension Neurogenic bladder Peripheral arterial disease Type II diabetes Covid virus in 2020 Past Surgical History: Arthroscopic left knee surgery Left shoulder surgery Lumbar spine surgery with fusion in 1989 and 1990 Left common femoral artery balloon angioplasty in 2020 Allergies: Amitriptyline HCl, metFORMIN HCl, and Temazepam. Medications: Anoro Ellipta 1 Puff(s) (of 62.5-25 mcg/inh) Aerosol Powder, Breath Activated Inhalation daily Aspirin 81 1 Tablet (of 81 mg) Tablet, enteric coated Oral daily Atorvastatin Calcium 1 Tablet (of 40 mg) Oral daily Azelastine HCl 2 Dumont(s) (of 0.1 %) Solution Nasal b.i.d. B-12 Compliance Injection (1000 mcg/mL) Injection Take as Directed Baclofen 1 Tablet (of 20 mg) Oral t.i.d. Clopidogrel Bisulfate 1 Tablet (of 75 mg) Oral daily DULoxetine HCl 1 Capsule (of 60 mg) Capsule Delayed Release Particles Oral b.i.d. Flonase 2 Dumont(s) (of 50 mcg/act) Suspension Nasal daily Furosemide 1 Tablet (of 20 mg) Oral daily Jardiance 1 Tablet (of 25 mg) Oral daily Lantus SoloStar 40 Unit(s) (of 100 Units/mL) Subcutaneous daily metFORMIN HCl 1 Tablet (of 500 mg) Oral daily Metoprolol Tartrate 1 Tablet (of 25 mg) Oral b.i.d. Morphine Sulfate 1 Tablet (of 15 mg) Oral 5x/d Morphine Sulfate ER 1 Capsule (of 60 mg) Capsule SR 24 HR Oral q 12 hours Narcan 1 Dumont(s) (of 4 mg/0.1mL) Liquid Nasal once PRN Pregabalin 1 Capsule (of 50 mg) Oral b.i.d. Sucralfate 10 mL (of 1 g/10mL) Suspension Oral t.i.d. Tamsulosin HCl 1 Tablet (of 0.4 mg) Capsule Oral b.i.d. Family History: His father had diabetes and prostate cancer and he also had recurrent anemia associated with acquired von Willebrand's disease. He with complications following aspiration pneumonia. Mother had heart disease and diabetes, and she of stroke. A brother also has diabetes. Social History: Mr. Goode is . He is a daily smoker who has smoked 0.5 packs/day for 36 years. He has no history of drinking. He has indicated exposure to the following products: recreational drug use and marijuana. 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 He had a work-related injury in 1988, and he has been disabled since 1991. He has a history of smoking for 35 years, previously up to 1 pack of cigarettes daily. He currently smokes 1/4 pack/day. He does not drink alcohol, and he has had only minimal alcohol use in the past. Physical Examination: Performed on Feb 01, 2022 14:09: Height - 67.25 in, Weight - 178.0 lbs (HIGH), BSA - 1.93 sq.m, BMI - 27.67, Temperature - 97.2 F (LOW), Pulse - 96 /min, Respiration - 18 /min, BP - 90/60 mm(hg), O2 Sat - 94 % (LOW), Pain - 8, and Fatigue - 6. Performance Status: 3 - Capable of only limited self-care, confined to bed or chair more than 50% of waking hours. (ECOG) Constitutional Alert, cooperative, oriented. Mood and affect appropriate. Appears close to chronological age. Well nourished. Well developed. Head Normocephalic; no scars. Respiratory Lungs are clear to auscultation without rhonchi or wheezing. Cardiovascular Regular rate and rhythm of heart without murmurs, gallops or rubs. Abdomen Non-tender, non-distended, no masses, ascites or hepatosplenomegaly. Good bowel sounds. No guarding or rebound tenderness. Extremities No visible deformities, no cyanosis, clubbing or edema. Pulses 3+ and equal bilaterally. Musculoskeletal Gait is unsteady requiring a cane for ambulation. Psychiatric Alert and oriented times three. Coherent speech. Verbalizes understanding of our discussions today. Laboratory: Test performed on Feb 01, 2022 12:15 CRP, High Sensitivity 0.340 mg/dL LDH (Total) 153 U/L Sodium 136 mmol/L Potassium 4.0 mmol/L Chloride 102 mmol/L CO2 21 mmol/L Anion Gap 17.0 BUN 18 mg/dL Creatinine 1.2 mg/dL Cr Clearance (Est) 75.6900 mL/min eGFR 62.0 mL/min Glucose 174 mg/dL Osmolality - Calculated 288 mOsm/kg Calcium 9.3 mg/dL Protein, Total 6.4 g/dL Albumin 4.4 g/dL Globulin 2.0 g/dL Bilirubin, Total 0.5 mg/dL ALT (SGPT) 17 U/L AST (SGOT) 12 U/L Alkaline Phosphatase 163 IU/L ESR (Sed Rate) 18 mm/hr WBC 11.0 10 3/uL RBC 4.91 10 6/uL HGB 14.0 g/dL HCT 43.2 % MCV 88.0 fl MCH 28.5 pg MCHC 32.4 g/dL RDW 15.2 % Platelet Count 197 10 3/cmm MPV 11.5 fL Neutrophils 5.07 10 3/uL Lymphocytes 4.0 10 3/uL Monocytes 0.8 10 3/uL Eosinophils 1.0 10 3/uL Basophils 0.1 10 3/uL Neutrophil % 46.1 % Lymphocyte % 36.4 % Monocyte % 7.1 % Eosinophil % 9.2 % Basophils % 1.0 % NRBC % 0 % CBC Slide Review Slide Review Perform SLIDE REVIEW CONSISTENT WITH AUTOMATION. Test performed on Sep 21, 2021 12:23 BCR/ABL Source blood BCR/ABL Previous Quant NG Impression: 1. Mild leukocytosis. Etiology is uncertain. It would appear to be most likely reactive, but at this point a myeloproliferative disorder is not excluded. 2. Hypertension. 3. Hyperlipidemia. 4. Type 2 diabetes. 5. Coronary artery disease. 6. Peripheral arterial disease. 7. COPD. 8. Allergic rhinitis. 9. Degenerative arthritis/degenerative disease of the spine with chronic pain. 10. Neurogenic bladder. 11. Chronic insomnia. Plan: Patient with variable but mild leukocytosis. It appears to most likely be reactive, though not certain of the specific underlying cause. At this point a myeloproliferative disorder is not excluded. Patient presents today for follow-up accompanied by his . Other than the chronic pain that he has he has been feeling fairly well. His labs were discussed with him and his today. We also discussed labs that were drawn after last visit including the BCR which was negative of any findings. We discussed possible reasons for leukocytosis including inflammation and smoking. For now we will monitor expectantly and he will return to the clinic in 3 months with a CBC and CMP. Signed By: Debi Tenorio N.P. <<Signature on File>>
== END 2022-02-01 11:49 | disposition home or self-care (01) ==
PROVIDERS: Internal Medicine Medical Oncology; PCP Internal Medicine; Visit Provider Nurse Practitioner Family
DX: D72.829 Elevated white blood cell count, unspecified (principal); G89.29 Other chronic pain; F17.210 Nicotine dependence, cigarettes, uncomplicated; I10 Essential (primary) hypertension; E78.5 Hyperlipidemia, unspecified
CPT/HCPCS: 36415; 80053; 83615; 85025; 85651; 86141; 99214

== ENCOUNTER 2022-03-09 08:10 | Outpatient (CLI) | payer MEDICARE, SELFPAY ==
[2022-03-09 08:56] LABS: Basophils # 0.1 10^3/uL (0.0-0.1); Basophils % 0.7 %; Eosinophils # 0.7 10^3/uL (0.0-0.8); Eosinophils % 6.3 %; Hematocrit 46.3 % (42.0-52.0); Hemoglobin 14.9 g/dL (11.7-16.6); Lymphocytes # 3.1 10^3/uL (0.8-4.8); Lymphocytes % 27.8 %; Mean Corpuscular HGB Conc 32.2 g/dL (30.0-36.0); Mean Corpuscular Hemoglobin 28.6 pg (28.0-34.0); Mean Corpuscular Volume 88.9 fl (80-94); Mean Platelet Volume 11.7 fL (7.4-10.4); Monocytes # 0.9 10^3/uL (0.2-0.9); Monocytes % 7.9 %; Neutrophils # 6.32 10^3/uL (1.8-7.7); Neutrophils % 57.1 %; Nucleated Red Blood Cells % 0 %; Platelet Count 197 10^3/cmm (130-400); Red Blood Count 5.21 10^6/uL (4.1-5.3); Red Cell Distribution Width 15.8 % (12.1-15.1); White Blood Count 11.1 10^3/uL (4.0-10.0)
[2022-03-09 09:00] LABS: LAB Peripheral Smear Sent for Review
[2022-03-09 09:07] LABS: Alanine Aminotransferase 14 U/L (0-41); Albumin Level 4.3 g/dL (3.5-5.2); Alkaline Phosphatase 178 IU/L (40-130); Anion Gap 14.7 (5-19); Aspartate Amino Transferase 15 U/L (0-40); Blood Urea Nitrogen 23 mg/dL (6-20); Calcium 9.5 mg/dL (8.5-10.5); Carbon Dioxide 27 mmol/L (22-29); Chloride 102 mmol/L (98-107); Globulin 2.7 g/dL (1.3-4.6); Glomerular Filtration Rate 68.5 mL/min (90-130); Glucose 166 mg/dL (65-115); Lactate Dehydrogenase 130 U/L (135-225); Osmolality Calculated 295 mOsm/kg (285-295); Potassium 4.7 mmol/L (3.5-5.1); Sodium 139 mmol/L (136-145); Total Bilirubin 0.4 mg/dL (0.15-1.2)
== END 2022-03-09 08:11 | disposition home or self-care (01) ==
LOC: LAB 08:12
PROVIDERS: PCP Internal Medicine; Visit Provider Internal Medicine Medical Oncology
DX: D72.829 Elevated white blood cell count, unspecified (principal)
CPT/HCPCS: 80053; 83615; 85025

== ENCOUNTER 2022-03-09 08:56 | Oncology outpatient (recurring) (ONCR) | payer MEDICARE, SELFPAY | END 2022-03-21 23:59 | disposition home or self-care (01) | PROVIDERS: PCP Internal Medicine; Visit Provider Internal Medicine Medical Oncology | DX: D72.829 Elevated white blood cell count, unspecified (principal) | CPT/HCPCS: 99999; G0463 ==

== ENCOUNTER → 2022-03-09 10:57 | Outpatient (BNVA) | payer MEDICARE, SELFPAY | PROVIDERS: PCP Internal Medicine; Visit Provider Specialist | DX: M17.0 Bilateral primary osteoarthritis of knee (principal); M25.562 Pain in left knee; G89.29 Other chronic pain | CPT/HCPCS: 20610 ==

== ENCOUNTER 2022-05-08 09:02 | Oncology outpatient (recurring) (ONCR) | payer MEDICARE, SELFPAY ==
--- NOTE | 2022-05-08 09:12 | NM_ITS ---
WS: [id number] NUCLEAR MEDICINE BONE SCAN Radiopharmaceutical: 23.9 Tc-99m MDP mCi IV Injection site: antecubital Postinjection imaging delay: 1 hr CLINICAL INFORMATION: bone pain, elevated alkaline phosphatase level COMPARISON: None. FINDINGS: Bone lesions: There are no osseous lesions suspicious for metastatic disease. Soft tissue contours: Normal. Kidneys: Normal. Other findings: Degenerative type uptake involving the RIGHT greater than LEFT AC joints. Degenerativ e type uptake involving the LEFT greater than RIGHT knees . NM/NM bone scan whole body* [id number] IMPRESSION: 1. No evidence of osseous metastatic disease. 2. Degenerative arthritis with patchy uptake involving the RIGHT greater than LEFT AC joints and LEFT greater than RIGHT knee
== END 2022-05-21 23:59 | disposition home or self-care (01) ==
PROVIDERS: PCP Internal Medicine; Visit Provider Internal Medicine Medical Oncology
DX: R74.8 Abnormal levels of other serum enzymes (principal); M89.8X9 Other specified disorders of bone, unspecified site
CPT/HCPCS: 78306; A9561

== ENCOUNTER 2022-06-13 11:17 | Oncology outpatient (recurring) (ONCR) | payer MEDICARE, SELFPAY ==
[2022-06-13 12:02] LABS: Basophils # 0.1 10^3/uL (0.0-0.1); Basophils % 0.4 %; Eosinophils # 0.4 10^3/uL (0.0-0.8); Eosinophils % 2.3 %; Hemoglobin 16.1 g/dL (11.7-16.6); Lymphocytes # 3.1 10^3/uL (0.8-4.8); Lymphocytes % 18.4 %; Mean Corpuscular HGB Conc 32.9 g/dL (30.0-36.0); Mean Corpuscular Hemoglobin 29.9 pg (28.0-34.0); Mean Corpuscular Volume 91.1 fl (80-94); Mean Platelet Volume 11.7 fL (7.4-10.4); Monocytes # 0.8 10^3/uL (0.2-0.9); Neutrophils % 73.5 %; Nucleated Red Blood Cells % 0 %; Platelet Count 192 10^3/cmm (130-400); Red Blood Count 5.38 10^6/uL (4.1-5.3); Red Cell Distribution Width 15.7 % (12.1-15.1); White Blood Count 16.7 10^3/uL (4.0-10.0)
[2022-06-13 12:22] LABS: Alanine Aminotransferase 18 U/L (0-41); Albumin Level 4.3 g/dL (3.5-5.2); Alkaline Phosphatase 194 U/L (40-130); Anion Gap 17.5 (5-19); Aspartate Amino Transferase 15 U/L (0-40); Blood Urea Nitrogen 17 mg/dL (6-20); Calcium 9.5 mg/dL (8.5-10.5); Carbon Dioxide 25 mmol/L (22-29); Chloride 103 mmol/L (98-107); Globulin 2.6 g/dL (1.3-4.6); Glomerular Filtration Rate 86.4 mL/min (90-130); Glucose 162 mg/dL (65-115); Lactate Dehydrogenase 172 U/L (135-225); Osmolality Calculated 297 mOsm/kg (285-295); Potassium 4.5 mmol/L (3.5-5.1); Sodium 141 mmol/L (136-145); Total Bilirubin 0.4 mg/dL (0.15-1.2); Total Protein 6.9 g/dL (6.6-8.7)
[2022-06-13 13:20] LABS: LAB Peripheral Smear Sent for Review
== END 2022-06-21 23:59 | disposition home or self-care (01) ==
PROVIDERS: PCP Internal Medicine; Visit Provider Internal Medicine Medical Oncology
DX: D72.829 Elevated white blood cell count, unspecified; F17.210 Nicotine dependence, cigarettes, uncomplicated; M89.8X0 Other specified disorders of bone, multiple sites; Z79.52 Long term (current) use of systemic steroids
CPT/HCPCS: 36415; 80053; 83615; 85025; 99214

== ENCOUNTER → 2022-06-15 08:53 | Outpatient (BNVA) | payer MEDICARE, SELFPAY | PROVIDERS: PCP Internal Medicine; Visit Provider Specialist | DX: M17.0 Bilateral primary osteoarthritis of knee (principal) | CPT/HCPCS: 20610; J1100; J2795; J3301 ==

== ENCOUNTER → 2022-07-21 11:01 | Outpatient (BNVA) | payer MEDICARE, SELFPAY | PROVIDERS: PCP Internal Medicine; Visit Provider Internal Medicine Critical Care Medicine | DX: J43.9 Emphysema, unspecified (principal); M62.81 Muscle weakness (generalized); F17.219 Nicotine dependence, cigarettes, with unspecified nicotine-induced disorders; J30.9 Allergic rhinitis, unspecified; J96.11 Chronic respiratory failure with hypoxia; Z99.3 Dependence on wheelchair; Z99.81 Dependence on supplemental oxygen | CPT/HCPCS: 36415; 82085; 82550; 99214 ==

== ENCOUNTER 2022-08-10 10:36 | Outpatient (CLI) | payer MEDICARE, SELFPAY ==
--- NOTE | 2022-08-10 11:15 | MR_ITS ---
WS: [id number] MRI CERVICAL SPINE NONCONTRAST HISTORY: RADICULOPATHY, CERVICAL REGION, chronic pain and arm tingling and numbness. COMPARISON: 09/11/2016 Technique: Multiplanar, multisequence noncontrast imaging of the cervical spine. Slight reversal of the cervical lordosis at C5-6 is new since the prior study. Small amount of edema in the endplates of C5 and C6. The C5-6 disc space has decreased in size. Signal within the cervical cord is normal. Visualized posterior fossa is unremarkable. Craniocervical junction, C1 and C2 relationship, odontoid process and soft tissues are normal. Mild anterior wedging of T3. New since 2016. No acute marrow edema. C2-C3: Mild LEFT foraminal stenosis similar to the prior study. C3-C4: Mild disc bulging with bilateral foraminal disc osteophyte complexes. Moderate central stenosi s and bilateral foraminal stenosis, LEFT greater than RIGHT. Encroachment upon the L4 nerve roots mickey aterally. Mild progression since the prior study. C4-C5: Mild diffuse annular disc bulging and small foraminal osteophytes. Mild facet arthritis. Mild progression of bilateral foraminal stenosis since the prior study. C5-C6: Diffuse osteophytic ridging with annular disc bulging. Moderate size central to LEFT paracentr al disc protrusion. Encroachment upon the ventral cervical cord with posterior displacement. Moderate central and bilateral foraminal stenosis. Slightly greater stenosis RIGHT foramen. C6-C7: Annular disc bulging and facet disease with small foraminal osteophytes. Mild foraminal stenos is. C7-T1: Normal. Quality of this examination is significantly limited by motion. MR/MR cervical spin wo con* [id number] IMPRESSION: 1. Limited quality evaluation due to significant motion artifact. Patient was unable to remain still for this examination due to pain. 2. Progression of degenerative disc disease and stenosis at C5-6 since 016. 3. Moderate central and bilateral foraminal stenosis at C3-4. 4. Mild LEFT foraminal stenosis at C2-3. 5. Moderate central and bilateral foraminal stenosis, RIGHT greater than LEFT at C5-6. 6. Mild foraminal stenosis at C6-7. 7. Mild bilateral foraminal stenosis at C4-5.
== END 2022-08-10 10:37 | disposition home or self-care (01) ==
PROVIDERS: PCP Internal Medicine; Visit Provider General Practice
DX: M54.12 Radiculopathy, cervical region (principal); M48.02 Spinal stenosis, cervical region; M50.322 Other cervical disc degeneration at C5-C6 level
CPT/HCPCS: 72141

== ENCOUNTER 2022-09-21 11:43 | Outpatient (CLI) | payer MEDICARE, SELFPAY ==
--- NOTE | 2022-09-21 12:15 | CT_ITS ---
WS: [email or web address] LDCT LUNG CANCER SCREENING TECHNIQUE: Noncontrast CT of the chest with coronal and sagittal reformatted images. CLINICAL INFORMATION: smoke COMPARISON: 08/22/21 DLP: 83.41 mGy.cm DIvol: Mean CTDIvol: 1.60 (mGy) All CT scans at [facility] use at least one of these dose optimization techniques: automat ed exposure control; mA and/or kV adjustment per patient size (includes targeted exams where dose is matched to clinical indication); or iterative reconstruction. FINDINGS: Lungs are well aerated. No acute pulmonary infiltrates. Mild chronic emphysematous changes. No suspicious pulmonary parenchymal opacities. Mild aortic calcification. Caliber thoracic aorta. Mild aortic and coronary calcification. No mediast inal or hilar lymphadenopathy. No axillary lymphadenopathy. Adrenal glands are normal. Small esophageal hiatal hernia. Splenic granulomas. CT/CT lung screening [id number] IMPRESSION: LUNG-RADS: 1-Negative FOLLOW UP: 1 Month LDCT
== END 2022-09-21 11:44 | disposition home or self-care (01) ==
PROVIDERS: PCP Internal Medicine; Visit Provider Internal Medicine Critical Care Medicine
DX: Z12.2 Encounter for screening for malignant neoplasm of respiratory organs (principal); F17.210 Nicotine dependence, cigarettes, uncomplicated; G89.29 Other chronic pain; M17.12 Unilateral primary osteoarthritis, left knee
CPT/HCPCS: 20610; 71271; 73560; 73565; 99213; J7325

== ENCOUNTER 2022-09-28 14:14 | Outpatient (CLI) | payer MEDICARE, SELFPAY ==
--- NOTE | 2022-09-28 13:45 | US_ITS ---
WS: [id number] RENAL ULTRASOUND HISTORY: Neurogenic Bladder COMPARISON: 05/31/2021 TECHNIQUE: 2-D and color Doppler imaging of the kidney submitted. Right kidney: 10.2 cm x 5.8 cm x 5.3 cm. Normal echogenicity with no hydronephrosis or mass. Left kidney: 11.4 cm x 5.1 cm x 5.6 cm. Small cortical cyst mid kidney measures 1.2 x 1.1 x 1.2 cm. No obstruction or solid mass. Aorta: Obscured by bowel gas. Urinary Bladder: Normally distended with bilateral ureteral jets noted. US/US renal BI* [id number] IMPRESSION: 1. No hydronephrosis or solid mass. 2. Very small LEFT renal cyst is stable.
== END 2022-09-28 14:15 | disposition home or self-care (01) ==
LOC: RAD 14:17
PROVIDERS: PCP Internal Medicine; Visit Provider Urology
DX: N17.9 Acute kidney failure, unspecified (principal); N31.9 Neuromuscular dysfunction of bladder, unspecified
CPT/HCPCS: 51741; 51798; 76770; 81003; 99213

== ENCOUNTER → 2022-11-01 13:51 | Outpatient (BNVA) | payer MEDICARE, SELFPAY | PROVIDERS: PCP Internal Medicine; Visit Provider Internal Medicine | DX: I73.9 Peripheral vascular disease, unspecified (principal); I11.0 Hypertensive heart disease with heart failure; I50.32 Chronic diastolic (congestive) heart failure; F17.210 Nicotine dependence, cigarettes, uncomplicated | CPT/HCPCS: 99214 ==

== ENCOUNTER 2022-11-01 15:02 | Outpatient (CLI) | payer MEDICARE, SELFPAY ==
--- NOTE | 2022-11-01 15:37 | XRR_ITS ---
PROCEDURE INFORMATION: Exam: XR Right Elbow Exam date and time: 11/01/2022 3:39 PM Age: 62 years old Clinical indication: Right elbow pain for 2 months that has moved up arm. TECHNIQUE: Imaging protocol: Radiologic exam of the Right elbow. Views: 3 or more views. COMPARISON: NM bone scan whole body* [id number] 05/08/2022 9:12 AM FINDINGS: Bones/joints: Possible subtle nondisplaced fracture involving the radial head. This is only seen on the oblique view. Consider CT. No definite elbow joint effusion. Soft tissues: Mild posterior soft tissue swelling. XR/XR elbow RT min 3V* [id number] IMPRESSION: 1. Possible subtle nondisplaced fracture involving the radial head. This is only seen on the oblique view. Consider CT. 2. Mild posterior soft tissue swelling.
== END 2022-11-01 15:03 | disposition home or self-care (01) ==
LOC: RAD 15:03
PROVIDERS: PCP Internal Medicine; Visit Provider Internal Medicine
DX: M25.521 Pain in right elbow (principal); M79.89 Other specified soft tissue disorders
CPT/HCPCS: 73080

== ENCOUNTER 2022-11-15 10:46 | Outpatient (CLI) | payer MEDICARE, SELFPAY ==
--- NOTE | 2022-11-15 10:54 | MR_ITS ---
WS: [id number] MRI RIGHT ELBOW without CONTRAST. COMPARISON: RIGHT elbow radiograph 11/01/2022. Multiplanar, multisequence imaging is performed without contrast. Significant limitations secondary to motion artifact. Despite multiple repeated attempts patient was unable to remain still for this examination. No significant joint effusion and no edema to suggest an acute fracture or healing fracture. Palpable marker is placed along the posterior lateral elbow. The adjacent triceps tendon is normal. There is mild increased T2 signal without tear involving the proximal common extensor tendon consiste nt with very mild tendinopathy. There is additional increased fluid surrounding the distal biceps ten don. There is increased T2 signal in the central portion of the distal biceps tendon near the radial tuberosity. No full-thickness tear. MR/MR elbow RT wo con* [id number] IMPRESSION: 1. Quality of this examination is significantly limited by motion artifact lynn pite repeated attempts. 2. Moderate tendinopathy distal biceps tendon near the radial tuberosity inser tion. No full-thickness tear. Intrasubstance fluid of the distal biceps tendon. 3. Mild tendinopathy common extensor tendon. 4. No marrow edema or fracture identified.
== END 2022-11-15 10:47 | disposition home or self-care (01) ==
LOC: RAD 10:46
PROVIDERS: PCP Internal Medicine; Visit Provider Internal Medicine
DX: M25.521 Pain in right elbow (principal)
CPT/HCPCS: 73221

== ENCOUNTER 2022-11-24 14:55 | Outpatient (CLI) | payer MEDICARE, SELFPAY ==
--- NOTE | 2022-11-24 15:08 | USCV_ITS ---
Troy Goode Age: 62 Gender: M : 1960 Exam Date: 11/24/2022 15:18 Ordering Phys: Ted Nath M.D ([email or web address]) Technologist: ALMA DELIA [place] [facility] [place]: PRESYNCOPE Risk Factors: Previous Vascular Surgery: Right Brachial BP: / Left Brachial BP: / Right Left Velocity (cm/s) Spectral Plaque Velocity (cm/s) Spectral Plaque Syst/Diast Broadening Syst/Diast Broadening 86.00/ 13.20 Prox CCA 102.50/ 18.80 77.70/ 14.00 Mid CCA 85.40 / 20.50 78.50/ 14.80 Distal CCA 67.50 / 15.40 98.20/ 23.00 Prox ICA 73.10 / 17.30 90.20/ 19.00 Mid ICA 62.60 / 22.30 65.10/ 13.50 Distal ICA 51.10 / 20.90 126.20 ECA 116.60 1.14 ICA/CCA 0.71 Vertebral 25.20/ 4.70 cm/s 28.80/ 12.80 cm/s Subclavian 152.3 133.4 0 0 FINDINGS Comparison:. 12/04/20. Diffuse bilateral scattered calcified plaque and intimal thickening throughout the common carotid arteries and extending through the bifurcation. No significant elevation of systolic or diastolic velocities. Antegrade vertebral arteries. CONCLUSIONS Bilateral ICA stenosis less than 50%. Mild carotid atherosclerosis. Dr. Oneyda Sanders DO (Electronically Signed) Final Date: 24 November 2022 16:21 S
== END 2022-11-24 14:56 | disposition home or self-care (01) ==
LOC: RAD 14:58
PROVIDERS: PCP Internal Medicine; Visit Provider Internal Medicine
DX: R55 Syncope and collapse (principal); I65.23 Occlusion and stenosis of bilateral carotid arteries
CPT/HCPCS: 93880

== ENCOUNTER 2022-12-06 12:23 | Oncology outpatient (recurring) (ONCR) | payer MEDICARE, SELFPAY ==
[2022-12-06 12:57] LABS: Basophils # 0.1 10^3/uL (0.0-0.1); Basophils % 0.7 %; Eosinophils # 0.6 10^3/uL (0.0-0.8); Eosinophils % 5.6 %; Hematocrit 47.2 % (42.0-52.0); Hemoglobin 15.2 g/dL (11.7-16.6); Lymphocytes # 4.1 10^3/uL (0.8-4.8); Lymphocytes % 40.8 %; Mean Corpuscular HGB Conc 32.2 g/dL (30.0-36.0); Mean Corpuscular Hemoglobin 29.9 pg (28.0-34.0); Mean Corpuscular Volume 92.7 fl (80-94); Mean Platelet Volume 10.9 fL (7.4-10.4); Monocytes # 0.9 10^3/uL (0.2-0.9); Monocytes % 9.1 %; Neutrophils # 4.38 10^3/uL (1.8-7.7); Neutrophils % 43.4 %; Nucleated Red Blood Cells % 0 %; Platelet Count 205 10^3/cmm (130-400); Red Blood Count 5.09 10^6/uL (4.1-5.3); Red Cell Distribution Width 15.9 % (12.1-15.1); White Blood Count 10.1 10^3/uL (4.0-10.0)
[2022-12-06 13:00] LABS: Erythrocyte Sedimentation Rate 13 mm/hr (0-10)
[2022-12-06 13:01] LABS: LAB Peripheral Smear Sent for Review
[2022-12-06 13:21] LABS: Alanine Aminotransferase 21 U/L (0-41); Albumin Level 4.2 g/dL (3.5-5.2); Alkaline Phosphatase 154 U/L (40-130); Anion Gap 15.4 (5-19); Aspartate Amino Transferase 18 U/L (0-40); Blood Urea Nitrogen 16 mg/dL (8-23); C Reactive Protein 7.7 mg/L (0.0-4.9); Calcium 9.2 mg/dL (8.5-10.5); Carbon Dioxide 28 mmol/L (22-29); Chloride 102 mmol/L (98-107); Globulin 2.4 g/dL (1.3-4.6); Glomerular Filtration Rate 56.3 mL/min (90-130); Glucose 187 mg/dL (65-115); Osmolality Calculated 298 mOsm/kg (285-295); Potassium 4.4 mmol/L (3.5-5.1); Sodium 141 mmol/L (136-145); Total Bilirubin 0.6 mg/dL (0.15-1.2); Total Protein 6.6 g/dL (6.6-8.7)
== END 2022-12-19 23:59 | disposition home or self-care (01) ==
LOC: ONCMED 12:24
PROVIDERS: PCP Internal Medicine; Visit Provider Internal Medicine Medical Oncology
DX: D72.829 Elevated white blood cell count, unspecified (principal); F17.210 Nicotine dependence, cigarettes, uncomplicated
CPT/HCPCS: 36415; 80053; 85025; 85651; 86140; 99213

== ENCOUNTER 2022-12-19 12:07 | Outpatient (CLI) | payer MEDICARE, SELFPAY ==
--- NOTE | 2022-12-19 12:25 | MR_ITS ---
WS: [id number] MRI LUMBAR SPINE WITH CONTRAST TECHNIQUE: Sagittal T1, T2 and STIR imaging. Axial T1 and T2 imaging. Post gadolinium imaging was obt ained. CLINICAL INFORMATION: FAILED BACK SYNDROME COMPARISON: MRI June 30, 2020 FINDINGS: Counting performed from the craniocervical junction. L5 is partially sacralized. Disc fusion L5-S1. G rade 1 anterolisthesis L4 on L5 is unchanged. Bony fusion L5-S1. Clumping of the cauda equina nerve r ootlets with peripheral displacement worse at L4-L5 and L5-S1 consistent with arachnoiditis unchanged from previous. L1-L2: Mild annular bulging. Mild facet arthropathy. Spinal canal and foramen are patent. L2-L3: Minimal annular bulging. Slight narrowing of the subarticular recess bilaterally. Moderate fac et arthropathy. Mild bilateral foraminal narrowing. L3-L4: Slight anterolisthesis has progressed. Annular bulging with mild progressed central canal sten osis. Impingement traversing L4 nerve roots bilaterally. Moderate to advanced arthropathy. Mild bilat eral foraminal narrowing. L4-L5: Slight anterolisthesis. Tiny annular fissure. Moderate to advanced facet arthropathy. Foramen are patent. Arachnoiditis at this level L5-S1: Spinal canal and foramen are patent. Prior laminectomy defects. Postoperative changes interbod y fusion. Arachnoiditis at this level Visualized pelvic bony structures: Normal. Paravertebral soft tissues: Normal. Small LEFT renal cyst measuring 13 mm. MR/MR lumbar spine wo/w con [id number] IMPRESSION: 1. Mild lumbar curve. No acute compression. Grade 1 anterolisthesis L4 on L5. Slightly progressed anterolisthesis L3 on L4. 2. Mild progressed central canal stenosis L3-L4 due to disc bulging and facet arthropathy with ligamentum flavum hypertrophy. Impingement on the traversing L 4 nerve roots bilaterally. Mild bilateral foraminal narrowing at this level. 3. No other significant changes compared to previous. 4. Grade 1 anterolisthesis L4 on L5 with mild disc bulging with impingement on the left subarticular recess 5. Changes of arachnoiditis lower thecal sac described above unchanged from pr evious. 6. Prior interbody fusion L5-S1 with dorsal laminectomy defects. Spinal canal and foramen are patent at this level.
[2022-12-19] MEDS: gadobenate dimeglumine 20 mL vial IV (13:18)
== END 2022-12-19 12:08 | disposition home or self-care (01) ==
PROVIDERS: PCP Internal Medicine; Visit Provider General Practice
DX: M96.1 Postlaminectomy syndrome, not elsewhere classified (principal); M48.061 Spinal stenosis, lumbar region without neurogenic claudication
CPT/HCPCS: 72158; A9577

== ENCOUNTER → 2023-01-11 10:26 | Outpatient (BNVA) | payer MEDICARE, SELFPAY | PROVIDERS: PCP Internal Medicine; Visit Provider Specialist | DX: M17.0 Bilateral primary osteoarthritis of knee (principal); Z71.89 Other specified counseling | CPT/HCPCS: 20610; J1100; J2795; J3301 ==

== ENCOUNTER → 2023-01-19 09:06 | Outpatient (BNVA) | payer MEDICARE, SELFPAY | PROVIDERS: PCP Internal Medicine; Visit Provider Internal Medicine Pulmonary Disease | DX: J43.9 Emphysema, unspecified (principal); F17.219 Nicotine dependence, cigarettes, with unspecified nicotine-induced disorders; J30.9 Allergic rhinitis, unspecified; J96.11 Chronic respiratory failure with hypoxia; Z99.3 Dependence on wheelchair; F17.218 Nicotine dependence, cigarettes, with other nicotine-induced disorders; M19.90 Unspecified osteoarthritis, unspecified site; I73.9 Peripheral vascular disease, unspecified | CPT/HCPCS: 82785; 86003; 99214 ==

== ENCOUNTER → 2023-04-05 10:24 | Outpatient (BNVA) | payer MEDICARE, SELFPAY | PROVIDERS: PCP Internal Medicine; Visit Provider Specialist | DX: M17.0 Bilateral primary osteoarthritis of knee (principal) | CPT/HCPCS: 20610; J1100; J2795; J3301 ==

== ENCOUNTER → 2023-04-16 15:40 | Outpatient (BNVA) | payer MEDICARE, SELFPAY | PROVIDERS: PCP Internal Medicine; Visit Provider Specialist | DX: M25.552 Pain in left hip (principal); M16.0 Bilateral primary osteoarthritis of hip | CPT/HCPCS: 73502; 99214 ==

== ENCOUNTER → 2023-04-17 14:59 | Outpatient (BNVA) | payer MEDICARE, SELFPAY | PROVIDERS: PCP Internal Medicine; Visit Provider Podiatrist Foot & Ankle Surgery | DX: I73.9 Peripheral vascular disease, unspecified (principal); B35.1 Tinea unguium; E11.9 Type 2 diabetes mellitus without complications; G62.9 Polyneuropathy, unspecified; Z79.84 Long term (current) use of oral hypoglycemic drugs | CPT/HCPCS: 11721; 99204 ==

== ENCOUNTER → 2023-05-02 15:06 | Outpatient (BNVA) | payer MEDICARE, SELFPAY | PROVIDERS: PCP Internal Medicine; Visit Provider Nurse Practitioner Family | DX: E11.51 Type 2 diabetes mellitus with diabetic peripheral angiopathy without gangrene (principal); I11.0 Hypertensive heart disease with heart failure; I50.32 Chronic diastolic (congestive) heart failure; Z79.4 Long term (current) use of insulin; I73.9 Peripheral vascular disease, unspecified; F17.210 Nicotine dependence, cigarettes, uncomplicated | CPT/HCPCS: 80048; 99214 ==

== ENCOUNTER → 2023-05-07 11:20 | Outpatient (BNVA) | payer MEDICARE, SELFPAY | PROVIDERS: PCP Internal Medicine; Visit Provider Podiatrist Foot & Ankle Surgery | DX: I73.9 Peripheral vascular disease, unspecified (principal); B35.1 Tinea unguium; G62.9 Polyneuropathy, unspecified; L84 Corns and callosities; E11.42 Type 2 diabetes mellitus with diabetic polyneuropathy; Z79.84 Long term (current) use of oral hypoglycemic drugs | CPT/HCPCS: 11056; 11721 ==

== ENCOUNTER → 2023-05-23 13:35 | Outpatient (BNVA) | payer MEDICARE, SELFPAY | PROVIDERS: PCP Pediatrics; Visit Provider Nurse Practitioner Family | DX: L72.0 Epidermal cyst (principal); D07.4 Carcinoma in situ of penis; L57.0 Actinic keratosis | CPT/HCPCS: 11900; 17000; 17003; 99213; J3301 ==

== ENCOUNTER 2023-06-14 14:14 | Outpatient (CLI) | payer MEDICARE, SELFPAY ==
--- NOTE | 2023-06-14 14:30 | MR_ITS ---
WS: [id number] MRI PELVIS WITHOUT CONTRAST. COMPARISON: LEFT hip radiograph 04/16/2023 Multiplanar, multisequence imaging is performed without contrast. Mild bilateral hip narrowing of the hip joints. No marrow edema or fracture. No labral tears are iden tified. SI joints are symmetric bilaterally. There is a moderate amount of marrow edema centered in the LEFT ischial tuberosity extending from the insertion sites of the semimembranosus and semitendinosus tendons. Smaller amount of edema extends i nto the adjacent soft tissues. There is no fluid collection. There is no soft tissue tract extending to the skin surface to suggest an ulceration. Additional very small amount of edema within the LEFT g luteus reggie muscle centrally. No adenopathy. IMPRESSION: 1. Marrow edema LEFT ischial tuberosity is contiguous with the insertion sites of the semimembranosus and semitendinosis tendons. Additional smaller amount of marrow edema in the medial LEFT gluteus max imus muscle. Suspect posttraumatic injury. Insertion site tear at the ischial tuberosity from partial avulsion of the semimembranosus and semitendinosus tendons. 2. No soft tissue ulcerations to suggest decubitus ulcer.
== END 2023-06-14 14:15 | disposition home or self-care (01) ==
PROVIDERS: PCP Pediatrics; Visit Provider Specialist
DX: M53.3 Sacrococcygeal disorders, not elsewhere classified (principal); M25.552 Pain in left hip; M25.551 Pain in right hip; S76.012A Strain of muscle, fascia and tendon of left hip, initial encounter; X58.XXXA Exposure to other specified factors, initial encounter
CPT/HCPCS: 72195

== ENCOUNTER 2023-07-03 16:11 | Outpatient (CLI) | payer MEDICARE, SELFPAY ==
--- NOTE | 2023-07-03 16:30 | CT_ITS ---
WS: [id number] CT ANGIOGRAPHY OF THE ABDOMINAL AORTA WITH RUNOFF TO THE ANKLES HISTORY: non healing wound left foot, left foot DP/PT diminished TECHNIQUE: Arterial injection is performed during imaging to evaluate the aorta and runoff vessels to the ankles. MIP and volume rendering imaging has also been performed. All images are reviewed. All C T scans at [facility] use at least one of these dose optimization techniques: automated exposu re control; mA and/or kV adjustment per patient size (includes targeted exams where dose is matched t o clinical indication); or iterative reconstruction. Contrast: Omnipaque 350; 100 mL IV. DLP: 1551.36 mGy.cm COMPARISON: 07/26/2021 Lung bases are clear. No cardiomegaly. Abdominal aorta: Increasing atherosclerotic plaque and ulcerations throughout the abdominal aorta beg inning at the level of the renal arteries. There is no aneurysm. There are several focal ulcerations within the plaque which are new and progressed. No aneurysm. Patent celiac axis and SMA. Mild atheros clerotic plaque in the renal arteries. No stenosis greater than 50%. RIGHT lower extremity arterial system: Multifocal areas of calcified plaque through the common, inter nal and external iliac arteries. Stenosis at multiple levels less than 50%. Deep profunda and SFA are patent. Multifocal areas of atherosclerotic plaque throughout the SFA and popliteal artery. No steno sis greater than 50%. Robust three-vessel runoff to the ankle. LEFT lower extremity arterial system: Scattered plaque and intimal thickening throughout the common i liac artery. Small ulcerated plaque with mild narrowing of the proximal internal iliac artery. Very s mall vessel caliber of the internal iliac. External iliac with scattered plaque but no high-grade jordi nosis. 60% stenosis with an ulcerated plaque involving the LEFT femoral artery over the femoral head. Deep profunda and SFA are patent. Mild multifocal plaque throughout the distal SFA at Ole's canal . Small amount of plaque in the popliteal artery. Good three-vessel runoff to the ankle. Early arterial enhancement through the liver, spleen, gallbladder, adrenal glands and kidneys shows n o acute abnormalities. No common bile duct dilatation. The distal body of the pancreas is absent this is probably normal developmental variation. 1.2 cm cyst LEFT kidney. No renal obstruction. No GI tra ct obstruction. Normal appendix. No ascites. L4 anterolisthesis by 2 mm. Severe disc space narrowing at L5-S1. IMPRESSION: 1. Increasing atherosclerotic plaque with ulcerations in the abdominal aorta. No aneurysm. 2. Multifocal areas of calcified plaque bilaterally throughout the superficial femoral arteries and t he popliteal arteries with no stenosis greater than 50%. 3. 60% stenosis with ulcerated plaque involving the LEFT femoral artery. This segment of the femoral artery was completely occluded on the study of 07/26/2021. 4. Good three-vessel runoff to the ankle.
[2023-07-03] MEDS: iohexol 350 mg/mL 500 mL Btl (per mL) IV (16:45)
== END 2023-07-03 16:12 | disposition home or self-care (01) ==
PROVIDERS: PCP Pediatrics; Visit Provider Nurse Practitioner Family
DX: I73.9 Peripheral vascular disease, unspecified (principal); I70.0 Atherosclerosis of aorta; I70.203 Unspecified atherosclerosis of native arteries of extremities, bilateral legs
CPT/HCPCS: 75635; 80048; 99214; Q9967

== ENCOUNTER → 2023-07-13 11:08 | Outpatient (BNVA) | payer MEDICARE, SELFPAY | PROVIDERS: PCP Pediatrics; Visit Provider Podiatrist Foot & Ankle Surgery | DX: B35.1 Tinea unguium (principal); I73.9 Peripheral vascular disease, unspecified; G62.9 Polyneuropathy, unspecified; E11.42 Type 2 diabetes mellitus with diabetic polyneuropathy; Z79.84 Long term (current) use of oral hypoglycemic drugs | CPT/HCPCS: 11721 ==

== ENCOUNTER → 2023-07-19 13:22 | Outpatient (BNVA) | payer MEDICARE, SELFPAY | PROVIDERS: PCP Pediatrics; Visit Provider Internal Medicine Pulmonary Disease | DX: F17.219 Nicotine dependence, cigarettes, with unspecified nicotine-induced disorders (principal); J30.9 Allergic rhinitis, unspecified; J96.11 Chronic respiratory failure with hypoxia; Z99.3 Dependence on wheelchair; R40.0 Somnolence; Z12.2 Encounter for screening for malignant neoplasm of respiratory organs; M17.0 Bilateral primary osteoarthritis of knee; J43.2 Centrilobular emphysema; Z99.81 Dependence on supplemental oxygen | CPT/HCPCS: 20610; 99214; J1100; J2795; J3301 ==

== ENCOUNTER → 2023-08-15 10:55 | Outpatient (BNVA) | payer MEDICARE, SELFPAY | PROVIDERS: PCP Pediatrics; Visit Provider Specialist | DX: M16.12 Unilateral primary osteoarthritis, left hip | CPT/HCPCS: 99214 ==

== ENCOUNTER 2023-09-25 13:01 | Outpatient (CLI) | payer MEDICARE, SELFPAY ==
--- NOTE | 2023-09-25 13:15 | CT_ITS ---
WS: [email or web address] LDCT LUNG CANCER SCREENING TECHNIQUE: Noncontrast CT of the chest with coronal and sagittal reformatted images. CLINICAL INFORMATION: Cancer Screen COMPARISON: CT 09/21/22 DLP: 74.39 mGy.cm DIvol: Mean CTDIvol: 1.50 (mGy) All CT scans at [facility] use at least one of these dose optimization techniques: automat ed exposure control; mA and/or kV adjustment per patient size (includes targeted exams where dose is matched to clinical indication); or iterative reconstruction. FINDINGS: Lungs are well aerated. No acute pulmonary infiltrates. Mild chronic emphysematous changes. 5 mm no dular opacity along the RIGHT fissure. Mild aortic calcification. Normal caliber thoracic aorta. Mild coronary calcification. No mediastinal or hilar lymphadenopathy. No axillary lymphadenopathy. Adrenal glands are normal. Small esophageal h iatal hernia. Splenic granulomas. Schmorl's nodes in the midthoracic spine. Chronic anterior wedging in the upper thoracic spine. IMPRESSION: CT/CT lung screening [id number] LUNG-RADS: 2-Benign Appearance or Behavior FOLLOW UP: 12 Month: Continue annual screening with LDCT
== END 2023-09-25 13:02 | disposition home or self-care (01) ==
LOC: RAD 13:02
PROVIDERS: PCP Pediatrics; Visit Provider Internal Medicine Pulmonary Disease
DX: Z12.2 Encounter for screening for malignant neoplasm of respiratory organs (principal); F17.219 Nicotine dependence, cigarettes, with unspecified nicotine-induced disorders
CPT/HCPCS: 71271

== ENCOUNTER 2023-10-12 11:02 | Outpatient (RCR) | payer MEDICARE, SELFPAY | END 2023-10-21 23:59 | disposition home or self-care (01) | LOC: SPT 11:02 | PROVIDERS: PCP Pediatrics; Visit Provider Nurse Practitioner | DX: M16.12 Unilateral primary osteoarthritis, left hip (principal) | CPT/HCPCS: 97161 ==

== ENCOUNTER → 2023-10-18 08:40 | Outpatient (BNVA) | payer MEDICARE, SELFPAY | PROVIDERS: PCP Pediatrics; Visit Provider Podiatrist Foot & Ankle Surgery | DX: B35.1 Tinea unguium (principal); I73.9 Peripheral vascular disease, unspecified; G62.9 Polyneuropathy, unspecified; E11.42 Type 2 diabetes mellitus with diabetic polyneuropathy; Z79.84 Long term (current) use of oral hypoglycemic drugs; Z79.4 Long term (current) use of insulin | CPT/HCPCS: 11056; 11721 ==

== ENCOUNTER 2023-10-22 06:00 | Outpatient (RCR) | payer MEDICARE, SELFPAY | END 2023-11-21 23:59 | disposition home or self-care (01) | LOC: SPT 06:00 | PROVIDERS: PCP Pediatrics; Visit Provider Nurse Practitioner | DX: M16.12 Unilateral primary osteoarthritis, left hip (principal) | CPT/HCPCS: 97110; 97113 ==

== ENCOUNTER → 2023-11-14 12:47 | Outpatient (BNVA) | payer MEDICARE, SELFPAY | PROVIDERS: PCP Pediatrics; Visit Provider Nurse Practitioner | DX: M17.0 Bilateral primary osteoarthritis of knee; Z71.89 Other specified counseling | CPT/HCPCS: 20610; J1040; J2795; J3301 ==

== ENCOUNTER 2023-11-22 06:00 | Outpatient (RCR) | payer MEDICARE, SELFPAY | END 2023-12-20 23:59 | disposition home or self-care (01) | LOC: SPT 06:00 | PROVIDERS: PCP Pediatrics; Visit Provider Nurse Practitioner | DX: M16.12 Unilateral primary osteoarthritis, left hip (principal) | CPT/HCPCS: 97113 ==

== ENCOUNTER → 2023-11-23 10:37 | Outpatient (BNVA) | payer MEDICARE, SELFPAY | PROVIDERS: PCP Pediatrics; Visit Provider Nurse Practitioner Family | DX: D48.5 Neoplasm of uncertain behavior of skin (principal); Z87.2 Personal history of diseases of the skin and subcutaneous tissue; S50.912A Unspecified superficial injury of left forearm, initial encounter; X58.XXXA Exposure to other specified factors, initial encounter; I73.9 Peripheral vascular disease, unspecified; D22.4 Melanocytic nevi of scalp and neck; L81.4 Other melanin hyperpigmentation; L57.0 Actinic keratosis | CPT/HCPCS: 11102; 17000; 99213 ==

== ENCOUNTER → 2023-12-12 10:32 | Outpatient (BNVA) | payer MEDICARE, SELFPAY | PROVIDERS: PCP Pediatrics; Visit Provider Dermatology | DX: D03.9 Melanoma in situ, unspecified (principal) | CPT/HCPCS: 99212 ==

== ENCOUNTER → 2023-12-26 08:18 | Outpatient (BNVA) | payer MEDICARE, SELFPAY | PROVIDERS: PCP Pediatrics; Visit Provider Dermatology | DX: D03.62 Melanoma in situ of left upper limb, including shoulder (principal) | CPT/HCPCS: 11603; 12032 ==

== ENCOUNTER → 2023-12-31 10:55 | Outpatient (BNVA) | payer MEDICARE, SELFPAY | PROVIDERS: PCP Internal Medicine; Visit Provider Podiatrist Foot & Ankle Surgery | DX: B35.1 Tinea unguium (principal); I73.9 Peripheral vascular disease, unspecified; G62.9 Polyneuropathy, unspecified; E11.42 Type 2 diabetes mellitus with diabetic polyneuropathy; Z79.84 Long term (current) use of oral hypoglycemic drugs | CPT/HCPCS: 11721 ==

== ENCOUNTER → 2024-01-08 13:18 | Outpatient (BNVA) | payer MEDICARE, SELFPAY | PROVIDERS: PCP Internal Medicine; Visit Provider Dermatology | DX: Z48.02 Encounter for removal of sutures (principal) | CPT/HCPCS: 99212 ==

== ENCOUNTER → 2024-01-17 14:47 | Outpatient (BNVA) | payer MEDICARE, SELFPAY | PROVIDERS: PCP Internal Medicine; Visit Provider Internal Medicine Pulmonary Disease | DX: J44.9 Chronic obstructive pulmonary disease, unspecified (principal); J43.9 Emphysema, unspecified; F17.219 Nicotine dependence, cigarettes, with unspecified nicotine-induced disorders; J30.9 Allergic rhinitis, unspecified; J96.11 Chronic respiratory failure with hypoxia; Z99.3 Dependence on wheelchair; R40.0 Somnolence; Z12.2 Encounter for screening for malignant neoplasm of respiratory organs; I73.9 Peripheral vascular disease, unspecified | CPT/HCPCS: 99214 ==

== ENCOUNTER → 2024-01-18 09:43 | Outpatient (BNVA) | payer MEDICARE, SELFPAY | PROVIDERS: PCP Internal Medicine; Visit Provider Specialist | DX: M17.0 Bilateral primary osteoarthritis of knee (principal) | CPT/HCPCS: 20610; J1100; J2795; J3301 ==

== ENCOUNTER → 2024-02-04 13:19 | Outpatient (BNVA) | payer MEDICARE, SELFPAY | PROVIDERS: PCP Internal Medicine; Visit Provider Internal Medicine | DX: I73.9 Peripheral vascular disease, unspecified (principal); I11.0 Hypertensive heart disease with heart failure; I50.32 Chronic diastolic (congestive) heart failure; F17.210 Nicotine dependence, cigarettes, uncomplicated | CPT/HCPCS: 99214 ==

== ENCOUNTER → 2024-03-10 14:48 | Outpatient (BNVA) | payer MEDICARE, SELFPAY | PROVIDERS: PCP Internal Medicine; Visit Provider Podiatrist Foot & Ankle Surgery | DX: B35.1 Tinea unguium (principal); I73.9 Peripheral vascular disease, unspecified; G62.9 Polyneuropathy, unspecified; E11.42 Type 2 diabetes mellitus with diabetic polyneuropathy | CPT/HCPCS: 11721; 99213 ==

== ENCOUNTER → 2024-03-20 15:11 | Outpatient (BNVA) | payer MEDICARE, SELFPAY | PROVIDERS: PCP Internal Medicine; Visit Provider Internal Medicine Pulmonary Disease | DX: J43.9 Emphysema, unspecified (principal); F17.219 Nicotine dependence, cigarettes, with unspecified nicotine-induced disorders; J30.9 Allergic rhinitis, unspecified; J96.11 Chronic respiratory failure with hypoxia; Z99.3 Dependence on wheelchair; R40.0 Somnolence; I73.9 Peripheral vascular disease, unspecified; J44.9 Chronic obstructive pulmonary disease, unspecified | CPT/HCPCS: 99214 ==

== ENCOUNTER 2024-04-15 14:57 | Outpatient (CLI) | payer MEDICARE, SELFPAY ==
--- NOTE | 2024-04-15 15:03 | MR_ITS ---
WS: [id number] MRI HEAD WITHOUT CONTRAST TECHNIQUE: Sagittal T1, T2 axial, T2 axial FLAIR, axial and coronal T1 images, axial susceptibility w eighted imaging, axial diffusion weighted images, and coronal T2 images were obtained. CLINICAL INFORMATION: TRANSIENT ALTERATION,MENTAL STATUS COMPARISON: CT 2020 and 2018 FINDINGS: No evidence of restricted diffusion to suggest acute ischemia. Ventricular system and basal cisterns are patent. Mild small vessel changes. Mild parenchymal volume loss. Small vessel changes in the oscar . Tiny chronic lacunar infarct RIGHT cerebellum. Normal vascular flow voids at the skull base. No ext ra-axial fluid collections. No evidence of mass or mass effect. Paranasal sinuses are well aerated. M astoid air cells are well aerated. Normal posterior nasopharynx. No hemosiderin on the susceptibly weighted images. Normal optic chiasm and pituitary infundibulum. Te mporal lobes and hippocampal formations are normal in appearance. Previously described RIGHT occipital calvarial lesion most compatible with benign incidental arachnoi d granulation. This is unchanged since 2018. MR/MR head wo con* [id number] IMPRESSION: 1. No evidence of restricted diffusion to suggest acute ischemia. 2. Mild small vessel changes with mild parenchymal volume loss. Small vessel c hanges in the oscar. 3. Tiny chronic lacunar infarct RIGHT cerebellum. 4. No hemosiderin on susceptibility-weighted images. 5. 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 6. No other suspicious findings.
== END 2024-04-15 14:58 | disposition home or self-care (01) ==
LOC: RAD 14:59
PROVIDERS: PCP Internal Medicine; Visit Provider Internal Medicine
DX: R40.4 Transient alteration of awareness (principal); I67.89 Other cerebrovascular disease; M89.9 Disorder of bone, unspecified
CPT/HCPCS: 70551

== ENCOUNTER → 2024-05-02 09:26 | Outpatient (BNVA) | payer MEDICARE, SELFPAY | PROVIDERS: PCP Internal Medicine; Visit Provider Specialist | DX: M17.0 Bilateral primary osteoarthritis of knee; Z71.89 Other specified counseling | CPT/HCPCS: 20610; J1100; J2795; J3301 ==

== ENCOUNTER → 2024-05-12 14:45 | Outpatient (BNVA) | payer MEDICARE, SELFPAY | PROVIDERS: PCP Internal Medicine; Visit Provider Nurse Practitioner Family | DX: D48.5 Neoplasm of uncertain behavior of skin (principal); L57.0 Actinic keratosis; D69.2 Other nonthrombocytopenic purpura; D22.4 Melanocytic nevi of scalp and neck; L81.4 Other melanin hyperpigmentation; Z87.2 Personal history of diseases of the skin and subcutaneous tissue; Z86.006 Personal history of melanoma in-situ | CPT/HCPCS: 11104; 17000; 99213 ==

== ENCOUNTER → 2024-05-13 15:00 | Outpatient (BNVA) | payer MEDICARE, SELFPAY | PROVIDERS: PCP Internal Medicine; Visit Provider Podiatrist Foot & Ankle Surgery | DX: B35.1 Tinea unguium (principal); I73.9 Peripheral vascular disease, unspecified; G62.9 Polyneuropathy, unspecified; E11.42 Type 2 diabetes mellitus with diabetic polyneuropathy; Z79.84 Long term (current) use of oral hypoglycemic drugs; Z79.4 Long term (current) use of insulin | CPT/HCPCS: 11721 ==

== ENCOUNTER → 2024-05-27 14:46 | Outpatient (BNVA) | payer MEDICARE, SELFPAY | PROVIDERS: PCP Internal Medicine; Visit Provider Psychiatry & Neurology Neurology | DX: G45.9 Transient cerebral ischemic attack, unspecified (principal); R41.3 Other amnesia | CPT/HCPCS: 95819 ==

== ENCOUNTER → 2024-07-01 08:44 | Outpatient (BNVA) | payer MEDICARE, SELFPAY | PROVIDERS: PCP Internal Medicine; Referring Provider Internal Medicine; Visit Provider Psychiatry & Neurology Neurology | DX: R40.0 Somnolence (principal); M62.81 Muscle weakness (generalized); J44.9 Chronic obstructive pulmonary disease, unspecified; I21.4 Non-ST elevation (NSTEMI) myocardial infarction; G62.9 Polyneuropathy, unspecified; I73.9 Peripheral vascular disease, unspecified; R29.898 Other symptoms and signs involving the musculoskeletal system; I10 Essential (primary) hypertension; B35.1 Tinea unguium; D72.829 Elevated white blood cell count, unspecified; M26.629 Arthralgia of temporomandibular joint, unspecified side; G25.3 Myoclonus; R41.3 Other amnesia | CPT/HCPCS: 99203 ==

== ENCOUNTER 2024-07-08 11:10 | Outpatient (CLI) | payer MEDICARE, SELFPAY ==
--- NOTE | 2024-07-08 11:21 | XRR_ITS ---
PROCEDURE INFORMATION: Exam: XR Left Knee Exam date and time: 07/08/2024 11:55 AM Age: 63 years old Clinical indication: Pain; Knee; Left; Additional info: Pain in left knee TECHNIQUE: Imaging protocol: Radiologic exam of the left knee. Views: 4 or more views. COMPARISON: CT angio abd aorta runof [id number] 07/03/2023 4:36 PM FINDINGS: Bones/joints: No acute fracture or dislocation. No significant knee joint effusion. Soft tissues: Visualized soft tissues are within normal limits. XR/XR knee LT 4V [id number] IMPRESSION: No acute fracture or dislocation.
[2024-07-08 12:09] LABS: Homocysteine 20.78 umol/l (0-15)
[2024-07-09 20:05] LABS: PTT-LA-Screen 32 sec (< OR = 40)
== END 2024-07-08 11:11 | disposition home or self-care (01) ==
PROVIDERS: PCP Internal Medicine; Visit Provider Psychiatry & Neurology Neurology
DX: M25.562 Pain in left knee (principal); I10 Essential (primary) hypertension; B35.1 Tinea unguium; M62.81 Muscle weakness (generalized); D72.829 Elevated white blood cell count, unspecified; J44.9 Chronic obstructive pulmonary disease, unspecified; I21.4 Non-ST elevation (NSTEMI) myocardial infarction; G62.9 Polyneuropathy, unspecified; M26.629 Arthralgia of temporomandibular joint, unspecified side
CPT/HCPCS: 36415; 73564; 81241; 83090; 85210; 85613; 85730; 86146; 86147

== ENCOUNTER 2024-07-15 12:30 | Outpatient (CLI) | payer MEDICARE, SELFPAY ==
--- NOTE | 2024-07-15 12:30 | CT_ITS ---
WS: [id number] CTA HEAD AND NECK TECHNIQUE: Contrast enhanced CTA of the head and neck with coronal and sagittal reformatted images an d maximum intensity projection (MIP) images. NASCET criteria utilized. CLINICAL INFORMATION: R40.0 - Somnolence COMPARISON: None. DLP: 1343.[address] scans at [facility] use at least one of these dose optimization techniques: automated e xposure control; mA and/or kV adjustment per patient size (includes targeted exams where dose is matc hed to clinical indication); or iterative reconstruction. FINDINGS: No evidence of intracranial hemorrhage or mass effect. Ventricular system and is patent. 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 Mild mucosal thickening in the paranasal sinuses. Mastoid air cells well aerated. Normal food service steward ior nasopharynx. RIGHT: RIGHT common carotid artery is patent. Mild calcified atheromatous plaque RIGHT carotid bulb e xtending into the ICA with less than 50% stenosis. RIGHT ICA is patent to the skull base. LEFT: LEFT common carotid artery is patent. Irregular ulcerated plaque LEFT common carotid artery ext ending into the ICA. LEFT ICA stenosis measures approximately 55 to 60%. This is best appreciated on the sagittal imaging. LEFT dominant vertebral artery. Smaller but patent RIGHT vertebral artery. RIGHT vertebral artery end s in PICA. Basilar artery is patent. Anterior dominant circulation with patent posterior communicatin g arteries. Somewhat diminutive but patent basilar artery. Both ICAs are patent at the skull base. Cavernous carotid calcification. Patent anterior communicatin g artery. Normal vascularity to the DAVID territory. Mild stenosis LEFT supraclinoid ICA which remains patent. Normal vascularity to the MCA territories bilaterally. Moderate atheromatous disease aortic arch. Proximal subclavian arteries are patent. Emphysematous duane nges in the lung apices. A few tiny thyroid nodules. Moderate spondylitic changes cervical spine. Pro minent disc osteophyte complex at C5-C6 with mild central canal stenosis. CT/CT angio headneck* [id number] IMPRESSION: 1. RIGHT ICA stenosis less than 50% 2. LEFT ICA stenosis measures 55 to 60% with irregular calcified atheromatous plaque. Mild stenosis LEFT common carotid artery origin. 3. No proximal flow-limiting intracranial stenosis. 4. Mild LEFT supraclinoid ICA stenosis which remains patent.
[2024-07-15] MEDS: iohexol 350 mg/mL 500 mL Btl (per mL) IV (14:05)
[2024-07-15 14:07] LABS: Blood Urea Nitrogen 9 mg/dL (8-23); Glomerular Filtration Rate 68.1 mL/min (90-130)
== END 2024-07-15 12:31 | disposition home or self-care (01) ==
LOC: RAD 12:30
PROVIDERS: PCP Internal Medicine; Visit Provider Psychiatry & Neurology Neurology
DX: I65.22 Occlusion and stenosis of left carotid artery (principal); R40.0 Somnolence; M62.81 Muscle weakness (generalized); J44.9 Chronic obstructive pulmonary disease, unspecified; I21.4 Non-ST elevation (NSTEMI) myocardial infarction; G62.9 Polyneuropathy, unspecified; I73.9 Peripheral vascular disease, unspecified; R29.898 Other symptoms and signs involving the musculoskeletal system
CPT/HCPCS: 70496; 70498; 82565; 84520

== ENCOUNTER → 2024-07-18 09:17 | Outpatient (BNVA) | payer MEDICARE, SELFPAY | PROVIDERS: PCP Internal Medicine; Visit Provider Psychiatry & Neurology Neurology | DX: R56.9 Unspecified convulsions (principal); G25.3 Myoclonus | CPT/HCPCS: 95813 ==

== ENCOUNTER → 2024-07-24 13:45 | Outpatient (BNVA) | payer MEDICARE, SELFPAY | PROVIDERS: PCP Internal Medicine; Visit Provider Podiatrist Foot & Ankle Surgery | DX: B35.1 Tinea unguium (principal); I73.9 Peripheral vascular disease, unspecified; G62.9 Polyneuropathy, unspecified; E11.42 Type 2 diabetes mellitus with diabetic polyneuropathy; Z79.84 Long term (current) use of oral hypoglycemic drugs; Z79.4 Long term (current) use of insulin | CPT/HCPCS: 11721 ==

== ENCOUNTER → 2024-08-04 14:37 | Outpatient (BNVA) | payer MEDICARE, SELFPAY | PROVIDERS: PCP Internal Medicine; Visit Provider Internal Medicine | DX: I73.9 Peripheral vascular disease, unspecified (principal); I11.0 Hypertensive heart disease with heart failure; I50.32 Chronic diastolic (congestive) heart failure | CPT/HCPCS: 99214 ==

== ENCOUNTER → 2024-08-15 10:48 | Outpatient (BNVA) | payer MEDICARE, SELFPAY | PROVIDERS: PCP Internal Medicine; Visit Provider Specialist | DX: M17.0 Bilateral primary osteoarthritis of knee (principal); Z71.89 Other specified counseling | CPT/HCPCS: 20610; J1100; J2795; J3301 ==

== ENCOUNTER 2024-08-22 07:53 | Outpatient (CLI) | payer MEDICARE, SELFPAY ==
[2024-08-22 08:10] VITALS: BMI 28.6
--- NOTE | 2024-08-22 08:10 | NMCV_ITS ---
NM jason perf SPECT r/s* [id number] Troy Goode Age: 63 Gender: M : 1960 Exam Date: 08/22/2024 08:46 Ordering Phys: Ted Nath M.D ([email or web address]) Technologist: YOANDY Landeros Exam Location: [facility] Indications: cp STRESS TEST Please see separate stress test report in [facility] for full findings IMAGE PROTOCOL Rest/Stress 1 Lexiscan Day Radiopharmaceutical Dose (mCi) Administration Site Administered by Rest: Tc-99m 8.8 IV YOANDY Landeros Sestamibi Stress:Tc-99m 27.6 IV YOANDY Rajan Sestamibi Rest: 22-Aug-2024 60 Discovery 630 Stress: 22-Aug-2024 30 Discovery 630 0.4mg Lexiscan. Images obtained in supine and prone position. SPECT RESULTS Technical Quality: Good Raw Data Analysis: Normal Image Corrections: No attenuation or motion correction applied Summed Stress Score: 0 Summed Rest Score: 0 Summed Difference Score: 0 PERFUSION FINDINGS Medium sized area of fixed perfusion defect noted in basal to mid inferior and inferoseptal wall suggestive of old myocardial infarction versus scarring. Small area of mild fixed perfusion defect noted in the mid anterior wall suggestive of old infarct versus an artifact. No ischemia noted on the study. FUNCTIONAL RESULTS (calculated via Gated SPECT) Stress Image LV EF (%): 62 Stress EDV (mL):95 TID: 0.8 Stress ESV (mL):36 FUNCTIONAL FINDINGS: There is normal left ventricular systolic function. IMPRESSIONS This study is negative for ischemia. Possible old myocardial infarction versus scarring noted in basal to mid inferior and inferoseptal wall without john- infarct ischemia. Tulio Harper MD (Electronically Signed) Final Date: 22 August 2024 12:10 S
--- NOTE | 2024-08-22 08:10 | ECG_ITS ---
locr Socialize Test Date: 2024-08-22 Pat Name: Troy Goode Department: Room: Gender: Male Director Digital Communications: : 1960 Requested By: Ted Nath Order Number: [id number] Rossy MD: Ted Nath M.D. Interpretive Statements LEXISCAN SESTAMIBI STRESS TEST Procedure: At the baseline, the blood pressure was 119/66 mmHg with a heart rate of 90 bpm. The electrocardiogram showed normal sinus rhythm, incomplete right bundle branch block with normal ST and T's. The Lexiscan was infused over a period of 20 seconds. A total of 0.4 mg of Lexiscan was infused. The stress phase was continued for a total of 5 minutes. Heart rate was at the end of stress phase was 98 bpm and a blood pressure of 142/83 mmHg. The EKG at the peak infusion revealed normal sinus rhythm with no significant ST-T wave changes. Sestamibi was injected 20 seconds after the Lexiscan infusion. Blood pressure at the end of recovery phase was 107/64 mmHg with a heart rate of 101 bpm. Conclusion: 1. Normal EKG response to Lexiscan infusion 2. No Lexiscan induced chest pain or cardiac arrhythmia. 3. Normal blood pressure and heart rate response. 4. Sestamibi/sestamibi perfusion scan pending; see separate report. Electronically Signed On 09-24-2024 19:00:08 CLIENT DIRECTOR by Ted Nath M.D. [email or web address]
[2024-08-22] MEDS: regadenoson 0.4 Mg/5 ml Syringe IVP (09:50)
[2024-08-22 09:52] VITALS: BP 106/74; PULSE 88
== END 2024-08-22 07:54 | disposition home or self-care (01) ==
PROVIDERS: PCP Internal Medicine; Visit Provider Internal Medicine
DX: R07.9 Chest pain, unspecified (principal); R06.02 Shortness of breath
CPT/HCPCS: 36415; 78452; 93017; 96374; A9500; J2785

== ENCOUNTER → 2024-10-03 13:54 | Outpatient (BNVA) | payer MEDICARE, SELFPAY | PROVIDERS: PCP Internal Medicine; Visit Provider Podiatrist Foot & Ankle Surgery | DX: I73.9 Peripheral vascular disease, unspecified (principal); G62.9 Polyneuropathy, unspecified; M79.673 Pain in unspecified foot; I99.8 Other disorder of circulatory system; B35.1 Tinea unguium; E11.42 Type 2 diabetes mellitus with diabetic polyneuropathy; Z79.84 Long term (current) use of oral hypoglycemic drugs | CPT/HCPCS: 11721; 99213 ==

== ENCOUNTER 2024-10-09 12:58 | Outpatient (CLI) | payer MEDICARE, SELFPAY ==
--- NOTE | 2024-10-09 13:07 | MR_ITS ---
WS: [id number] MRI LEFT KNEE HISTORY: PAIN IN L KNEE COMPARISON: 08/18/2019 Anterior cruciate ligament: Intact. Posterior cruciate ligament: Intact. Medial collateral ligament: MCL is displaced from the joint line by the extruded meniscus and osteoph ytes. New change since the prior study. Small amount of increased T2 signal in the deep MCL. There is no complete tear. Posterior lateral corner structures: Intact. Medial menisci: Abnormal signal posterior horn. Horizontal tear extends to the inferior tickler surfa ce and towards the free edge. Medial meniscus is extruded from the joint line. Lateral meniscus: Intact. Normal signal, size and shape. Extensor mechanism: Distal quadriceps tendon and patellar tendons are intact. Fluid and soft tissue: Small suprapatellar joint effusion. Small Farias's cyst. Small amount of edema over the medial femoral condyle. Osseous and articular structures: Patellofemoral compartment: Moderate narrowing patellofemoral compartment. Progression of osteoarthri tis. Loss of cartilage along the medial patellar facet with subchondral cystic change extending into the patella. These findings are new since the prior study. Medial compartment: Severe narrowing of the medial compartment. Complete loss of cartilage. Osteophyt ic ridging with extrusion of the meniscus. These findings have significantly progressed since 2019. Lateral compartment: Moderate narrowing of the lateral joint space. Mild thinning and fissuring of th e cartilage. Subchondral cystic changes along the weightbearing surface of the tibial plateau. Serpiginous heterogeneous marrow signal changes involving the distal femoral metaphysis, bilateral fe moral condyles and the proximal tibia consistent with new bone infarcts which have developed since . MR/MR knee LT wo con* [id number] IMPRESSION: 1. 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 2. Significant progression of the degenerative joint disease since 2019. 3. Horizontal tear posterior horn medial meniscus. Tear extends laterally into the body of the meniscus and the portion of the meniscus extruded from the porfirio nt line. 4. Medial meniscus is extruded from the joint line displacing the MCL. 5. Moderate narrowing patellofemoral compartment with greater osteochondral le sions along the medial patellar facet which are new. 6. Severe narrowing medial compartment with complete loss of cartilage, osteop hytic ridging and marrow edema. 7. Moderate narrowing of the lateral compartment with thinning and fissuring o f the cartilage.
== END 2024-10-09 12:59 | disposition home or self-care (01) ==
PROVIDERS: PCP Internal Medicine; Visit Provider Internal Medicine
DX: M17.12 Unilateral primary osteoarthritis, left knee (principal); M87.852 Other osteonecrosis, left femur; M23.222 Derangement of posterior horn of medial meniscus due to old tear or injury, left knee; M23.204 Derangement of unspecified medial meniscus due to old tear or injury, left knee; S82.012A Displaced osteochondral fracture of left patella, initial encounter for closed fracture; X58.XXXA Exposure to other specified factors, initial encounter
CPT/HCPCS: 73721

== ENCOUNTER 2024-10-21 07:58 | Outpatient (CLI) | payer MEDICARE, SELFPAY ==
--- NOTE | 2024-10-21 08:00 | CTR_ITS ---
PROCEDURE INFORMATION: Exam: CTA Abdominal Aorta and Bilateral Lower Extremities (Run-off) With Contrast Exam date and time: 10/21/2024 8:40 AM Age: 63 years old Clinical indication: Numbness; Lower extremity; Patient HX: Pad, bilateral leg pain; Additional info: Pain in feet TECHNIQUE: Imaging protocol: Computed tomographic angiography of the of the abdominal aorta, pelvis and bilateral lower extremities with contrast. 3D rendering (Not supervised by radiologist): MIP and/or 3D reconstructed images were created by the technologist. Radiation optimization: All CT scans at this facility use at least one of these dose optimization techniques: automated exposure control; mA and/or kV adjustment per patient size (includes targeted exams where dose is matched to clinical indication); or iterative reconstruction. Contrast material: OMNIPAQUE 350; Contrast volume: 125 ml; Contrast route: INTRAVENOUS (IV); COMPARISON: CT angio abd aorta runof 83275 07/03/2023 4:36 PM RADIATION DOSE METRICS: Total DLP (mGy-cm): 1509.92 FINDINGS: Aorta: Unchanged large amount aortic wall plaque containing multiple ulcerations. This does not cause hemodynamically significant stenosis. No dissection or aneurysm. Otherwise, unremarkable. Celiac trunk and mesenteric arteries: Again noted is the left gastric artery arising from the abdominal aorta. This is a normal congenital variant. A greater than 70% diameter stenosis proximally in the left gastric artery is unchanged. Otherwise, unremarkable celiac axis. Unremarkable superior mesenteric artery. Unchanged greater than 70% diameter stenosis origin of the inferior mesenteric artery. Otherwise, unremarkable MOMO. Renal arteries: New at least 50-69% diameter stenosis proximally in the single right renal artery. Unremarkable single left renal artery. Right iliac arteries: No occlusion or significant stenosis. Right femoral/popliteal arteries: No occlusion or significant stenosis. Right infrapopliteal arteries: No occlusion or significant stenosis. Left iliac arteries: Unchanged at least 50-69% diameter stenoses in the left internal iliac artery. Otherwise, no significant left iliac arterial pathology. Left femoral/popliteal arteries: Unchanged 50-69% diameter stenosis left common femoral artery. Unchanged 50-69% diameter stenosis proximal left deep femoral artery. Otherwise, unremarkable left deep femoral artery. Unremarkable left superficial femoral and left popliteal arteries. Left infrapopliteal arteries: No occlusion or significant stenosis. Liver: No mass. Gallbladder and biliary ducts: Unremarkable. No calcified stones. No ductal dilation. Pancreas: Unchanged atrophic pancreatic body and tail. Otherwise, unremarkable. Spleen: Normal. No splenomegaly. Adrenal glands: Normal. No mass. Kidneys and ureters: Unchanged small left renal cyst needs no follow-up. Otherwise, unremarkable. Stomach and bowel: Unremarkable. No obstruction. No mucosal thickening. Appendix: No evidence of appendicitis. Urinary bladder: Unremarkable. No mass. Reproductive: Unremarkable as visualized. Intraperitoneal space: Unremarkable. No free air. No significant fluid collection. Lymph nodes: No lymphadenopathy. Bones/joints: New small bilateral knee joint effusions. Otherwise, nothing acute. No change. Soft tissues: Otherwise, unremarkable visualized body wall. Otherwise, unremarkable soft tissues. CT/CT angio abd aorta runof [id number] IMPRESSION: 1. Several hemodynamically significant stenoses in main arteries of the abdomen, pelvis, and left leg are detailed above. All are unchanged except for a new at least 50-69% diameter stenosis proximally in the single right renal artery. 2. No other significant arterial pathology identified. 3. Additional details as above.
[2024-10-21 08:36] LABS: Blood Urea Nitrogen 12 mg/dL (8-23); Glomerular Filtration Rate 56.1 mL/min (90-130)
[2024-10-21] MEDS: iohexol 350 mg/mL 500 mL Btl (per mL) IV (08:53)
== END 2024-10-21 07:59 | disposition home or self-care (01) ==
LOC: RAD 07:59
PROVIDERS: PCP Internal Medicine; Visit Provider Podiatrist Foot & Ankle Surgery
DX: I70.202 Unspecified atherosclerosis of native arteries of extremities, left leg (principal); E11.9 Type 2 diabetes mellitus without complications; G62.9 Polyneuropathy, unspecified; I70.8 Atherosclerosis of other arteries; I77.1 Stricture of artery; K86.89 Other specified diseases of pancreas
CPT/HCPCS: 75635; 82565; 84520

== ENCOUNTER → 2024-11-10 10:25 | Outpatient (BNVA) | payer MEDICARE, SELFPAY | PROVIDERS: PCP Internal Medicine; Visit Provider Specialist | DX: Z01.818 Encounter for other preprocedural examination (principal); M17.12 Unilateral primary osteoarthritis, left knee; M25.561 Pain in right knee | CPT/HCPCS: 36415; 73560; 73565; 80053; 81001; 85025; 99215 ==

== ENCOUNTER → 2024-11-21 11:08 | Outpatient (BNVA) | payer MEDICARE, SELFPAY | PROVIDERS: PCP Internal Medicine; Visit Provider Specialist | DX: M17.11 Unilateral primary osteoarthritis, right knee (principal); Z71.89 Other specified counseling | CPT/HCPCS: 20610; J1100; J2795; J3301 ==

== ENCOUNTER → 2024-12-01 11:13 | Outpatient (BNVA) | payer MEDICARE, SELFPAY | PROVIDERS: PCP Internal Medicine; Visit Provider Family Medicine | DX: Z01.818 Encounter for other preprocedural examination (principal) | CPT/HCPCS: 93005 ==

== ENCOUNTER 2024-12-03 15:33 | Outpatient (CLI) | payer MEDICARE, SELFPAY ==
--- NOTE | 2024-12-03 16:00 | CT_ITS ---
WS: [id number] CT LEFT KNEE, NONCONTRAST [facility] TECHNIQUE: Noncontrast CT of the LEFT knee to include the LEFT hip and ankle. CLINICAL INFORMATION: M17.12 - Unilateral primary osteoarthritis, left knee COMPARISON: None. DLP: 920.[address] scans at [facility] use at least one of these dose optimization techniques: automated exposure control; mA and/or kV adjustment per patient size (includes targeted exams where dose is matched to clinical indication); or iterative reconstruction. FINDINGS: Advanced tricompartmental arthritis LEFT knee. Vascular calcification. Joint space narrowing worse in the medial joint compartment with [id number] articulation. Hypertrophic patella. Moderate suprapatellar effusion. Hypertrophic changes along the joint line. Advanced degenerative narrowing involving the lateral patella facet. Moderate degenerative arthritis sacroiliac joints. Moderate degenerative narrowing both hips. Urine distended bladder. CT/CT knee LT [facility] [id number] IMPRESSION: Images obtained for preoperative purposes.
== END 2024-12-03 15:34 | disposition home or self-care (01) ==
LOC: RAD 15:34
PROVIDERS: PCP Internal Medicine; Visit Provider Specialist
DX: M17.12 Unilateral primary osteoarthritis, left knee (principal); R93.6 Abnormal findings on diagnostic imaging of limbs; M25.462 Effusion, left knee; M19.09 Primary osteoarthritis, other specified site; M25.851 Other specified joint disorders, right hip; M25.852 Other specified joint disorders, left hip; N32.89 Other specified disorders of bladder
CPT/HCPCS: 73700

== ENCOUNTER → 2024-12-08 13:34 | Outpatient (BNVA) | payer MEDICARE, SELFPAY | PROVIDERS: PCP Internal Medicine; Visit Provider Podiatrist Foot & Ankle Surgery | DX: E11.42 Type 2 diabetes mellitus with diabetic polyneuropathy (principal); B35.1 Tinea unguium; L84 Corns and callosities; I73.9 Peripheral vascular disease, unspecified; G62.9 Polyneuropathy, unspecified; Z79.4 Long term (current) use of insulin; Z79.84 Long term (current) use of oral hypoglycemic drugs | CPT/HCPCS: 11056; 11721 ==

== ENCOUNTER 2024-12-09 10:30 | Observation (INO) | payer MEDICARE, SELFPAY ==
[2024-12-09] VITALS (25 sets, daily range): BP systolic 90–142; BP diastolic 50–95; PULSE 77–102; RESP 13–18; TEMP 36.1–37.2; O2SAT 90–100; BMI 28.6
[2024-12-09 06:36] LABS: Glucose Point of Care 143 mg/dL (70-110)
[2024-12-09] MEDS: acetaminophen 1,000 MG/100 ML PIGGYBACK 400 MG IV ×3 (06:37→21:40)
[2024-12-09] MEDS: sodium chloride 0.9% 1,000 ML 30 ML IV (06:38)
[2024-12-09] MEDS: gabapentin 300 mg Capsule PO (06:38)
[2024-12-09] MEDS: CELEcoxib 200 mg Capsule 400 MG PO (06:38)
--- NOTE | 2024-12-09 07:08 | ANES.PREANE2 ---
Pre-Anesthetic Assessment Height/Weight: Height 1.65 m Weight 78.018 kg Temp Pulse Resp BP Pulse Ox O2 Del Method 98.9 F 102 H 18 130/79 95 Room Air 12/09/24 06:48 12/09/24 06:48 12/09/24 06:48 12/09/24 06:48 12/09/24 06:48 12/09/24 06:48 Preop Diagnosis: Left Knee DJD Operation Date: 12/09/24 07:35 Proposed Procedures p Raf Robot Total Knee Arthroplasty(Left) - Mallika Aguillon MD Familial anesthetic complications: None Was Beta Ishmael taken within 24 hours: N/A Was Clonidine taken within 24 hours: N/A Last intake: Intake Last Liquid Date 12/09/24 Last Liquid Time 06:00 Last Solid Date 12/08/24 Last Solid Time 18:00 Social Tobacco and No alcohol 1/2 PPD pack(s) per day Exam alert, oriented x 3, clear to auscultation bilaterally and regular rate & rhythm Airway Submandibular: within normal limits Cervical ROM: within normal limits Mallampati: Class II Dentition: false History/ROS No significant history except as noted and No significant complaints Pulmonary Chronic Obstructive Pulmonary Disease CV/HEM Hypertension and Myocardial Infarction (non-STEMI) None reported Hepatic None reported GI None reported Metabolic Diabetes Mellitus Musc/skel Lower Back Pain Neuropsych Anxiety, Cerebrovascular Accident and Neuropathy Myoclonus Anesthetic Plan ASA status: 3 Anesthesia: General Risk of > 500 ml blood loss (7ml/kg in children): No Medications/Allergies Home Medications ?Medication ?Instructions ?Recorded ?Confirmed ?Last Taken ?Type pen needle, diabetic 29 gauge x #50 ea 12/22/19 12/08/24 Unknown Rx 1/2 (Comfort EZ Pen [place]) albuterol sulfate 90 mcg/actuation 2 puff inhalation Q6H PRN 01/16/20 12/09/24 09/13/21 20:00 Rx aerosol inhaler (ProAir HFA) Shortness Of Breath #8.5 grams aspirin 81 mg tablet,delayed 81 mg PO DAILY@0900 02/16/21 12/08/24 12/06/24 History release Vitamin D3 1 cap PO DAILY 02/22/21 12/08/24 12/07/24 History empagliflozin 25 mg tablet 25 mg PO DAILY@09 02/22/21 12/08/2425 History (Jardiance) fluticasone propionate 50 1 spray intranasal DAILY PRN Runny 07/19/21 12/08/24 Unknown History mcg/actuation nasal Nose spray,suspension (Allergy Relief (fluticasone)) blood-glucose meter (OneTouch 08/26/21 12/08/24 Unknown Rx Ultra2 Meter) lancets 30 gauge (OneTouch Delica #100 ea 08/26/21 12/08/24 Unknown Rx Lancets) blood sugar diagnostic (OneTouch #300 ea 08/29/21 12/08/24 Unknown Rx Ultra Test strips) tamsulosin 0.4 mg capsule 0.4 mg PO BID #60 caps 09/30/21 12/08/24 12/08/24 Rx furosemide 20 mg tablet (Lasix) 20 mg PO DAILY PRN Edema #90 tabs 10/31/21 12/08/24 Unknown Rx azelastine 137 mcg (0.1 %) nasal 2 spray intranasal BID Runny Nose 01/17/22 12/08/24 Unknown Rx spray 30 days #30 mL Lantus U-100 Insulin 40 units SUBCUT DAILY 03/09/22 12/08/24 12/08/24 History baclofen 20 mg tablet 20 mg PO TID 06/13/22 12/08/24 12/08/24 History duloxetine 60 mg capsule,delayed 60 mg PO DAILY pain 06/13/22 12/08/24 12/08/24 History release morphine 15 mg immediate release 15 mg PO TID PRN Pain 06/13/22 12/08/24 12/08/24 History tablet mupirocin 2 % topical ointment 1 applic topical BID #22 grams 07/14/22 12/08/24 Unknown Rx Vitamin B-12 1 cap PO DAILY 11/01/22 12/08/24 12/07/24 History fluticasone fur. 100 mcg-umeclid 1 inh inhalation DAILY #60 ea 01/19/23 12/08/24 12/08/24 Rx 62.5 mcg-vilant 25 mcg inhalat.powder (Trelegy Ellipta) Diabetic shoes with 3 pairs of #1 ea 04/17/23 12/08/24 Unknown Rx inserts coenzyme Q10 100 mg chewable tablet 100 mg PO DAILY 0912/08/24 12/08/24 History atorvastatin 40 mg tablet 40 mg PO BEDTIME@2100 #90 tabs 10/24/23 12/08/24 12/07/24 Rx diabetic shoes with 3 inserts #1 ea 12/31/23 12/08/24 Unknown Rx lancets (Accu-Chek Softclix #100 ea 07/01/24 12/08/24 Unknown History Lancets) metformin 500 mg tablet,extended 500 mg PO DAILY 07/01/24 12/08/24 12/08/24 History release 24 hr pen needle, diabetic 31 gauge x #1,200 ea 07/01/24 12/08/24 Unknown History 03/06 (BD Ultra-Fine Short Pen Needle) semaglutide 0.25 mg or 0.5 mg (2 0.25 mg SUBCUT ONCE 07/01/24 12/08/24 12/01/24 History mg/1.5 mL) subcutaneous pen injector (Ozempic) sucralfate 100 mg/mL oral 100 mg PO PRN PRN Acid Reflux 07/01/24 12/08/24 Unknown History suspension lamotrigine 25 mg tablet 25 mg PO BID 08/04/24 12/08/24 12/07/24 History pregabalin 75 mg capsule 75 mg PO TID 08/04/24 12/08/24 12/08/24 History nitroglycerin 2 % transdermal 0.5 inch transdermal BID #30 grams 10/03/24 12/08/24 Unknown Rx ointment Allergies Allergy/AdvReac Type Severity Reaction Status Date / Time amitriptyline Allergy ALGY-Conges Verified 12/08/24 13:43 sonia temazepam Allergy ALGY-Conges Verified 12/08/24 13:43 sonia Current Medications Generic Name Dose Route Start Last Admin Trade Name Freq PRN Reason Stop Dose Admin Sodium Chloride 1,000 mls @ 30 mls/hr 12/09/24 06:15 12/09/24 06:38 Sodium Chloride 0.9% IV 12/10/24 06:14 30 mls/hr .Q24H FREDO Administration PFSH Anesthesia Medical History Primary osteoarthritis of knees, bilateral Degenerative joint disease of spine Smoker unmotivated to quit PAD (peripheral artery disease) NSTEMI (non-ST elevated myocardial infarction) Chronic neck and back pain Heart failure with preserved ejection fraction Echo 12/04/20 EF 55% Allergic rhinosinusitis Neurogenic bladder Iron deficiency anemia Vitamin D deficiency Dyslipidemia COPD, moderate Controlled type 2 diabetes mellitus, without long-term current use of insulin Essential (primary) hypertension Hypothyroidism, unspecified Gastritis Surgical History H/O oral surgery Teeth extracted H/O circumcision H/O colonoscopy 11/20/2016 H/O esophagogastroduodenoscopy 2015 History of back surgery Lumbar laminectomy x 2 Family History Father Diabetes Stroke Bleeding disorder Mother Diabetes Cancer SKIN Other CAD (coronary artery disease) Lung disease Denies family history of Anesthesia complication Social History Smoking and tobacco/nicotine status: never used tobacco/nicotine Quit status (tobacco/nicotine): has tried quititng Alcohol intake: never Substance/Drug Use: never Lives independently: Yes Household members: spouse Marital status: Current occupational status: disabled Do you think of yourself as: Straight/Heterosexual Current gender identity: Male Data Anesthesia Cardiac Studies: Echocardiogram Ultrasound 12/04/20 Sestamibi Stress Test (Cardiology) 08/22/24 Cardiac Event Monitor 04/29/21
--- NOTE | 2024-12-09 07:12 | W.PM.OPSUD ---
Surgery/Procedure H&P Update DATE OF PROCEDURE: December 09, 2024 DATE H&P PERFORMED: 12/01/24 H&P UPDATE INFORMATION: I have reviewed H&P completed within last 30 days, I have examined patient prior to procedure, No changes to prior documentation and H&P is in [facility] EMR on date indicated PLANNED PROCEDURE: Operation Date: 12/09/24 07:35 Proposed Procedures p Raf Robot Total Knee Arthroplasty(Left) - Mallika Aguillon MD Related Problem List Diagnoses (1) Primary osteoarthritis of left knee:
[2024-12-09] MEDS: ceFAZolin 2,000 mg SDV 2000 MG IVP ×2 (07:47→15:52)
[2024-12-09] MEDS: tranexamic acid 1,000 mg/10mL SDV 1000 MG IV (08:18)
[2024-12-09] MEDS: BUPivacaine liposome 13.3 mg/mL SDV 20 mL 266 MG INJECTION (08:44)
[2024-12-09] MEDS: BUPivacaine 0.5% INJ 10 mL 20 ML INJECTION (08:44)
[2024-12-09] MEDS: ceFAZolin 2,000 mg SDV 2000 MG IRRIGATION (08:47)
[2024-12-09] MEDS: VANCOMYCIN ADD-Vantage 1,000 MG VIAL 1000 MG XX (08:50)
--- NOTE | 2024-12-09 10:35 | PM.OP ---
Operative Report Date of procedure: December 09, 2024 Pre-op diagnosis: Primary osteoarthritis left knee Post-op diagnosis: Primary osteoarthritis left knee Post-op findings: Severe degenerative osteoarthritis and lateral laxity to the left knee Procedure done: Left knee with Raf guidance Implants: The [place] total knee system with a size 4 triathlon beaded cruciate retaining femur left, a triathlon titanium tibial component size 5 beaded, a triathlon X3 tibial bearing CS insert size 5 X 9 mm and a beaded triathlon titanium asymmetric patella size 35 x 10 mm Specimens removed/disposition: Bone, disposed of Pathology: None Surgeon: Mallika Aguillon MD Vacuum Kettle Cook: Mariann Manrique, nurse practitioner who services were required for retraction, exposure, closure, and completion of the surgical procedure Anesthesia: General (Intubated, ASA 3) Estimated blood loss (mL): 650 Tourniquet time (min): 0 (Not utilized) IV fluids (mL): 1,900 Urine output (mL): 500 Complications: None Findings: Severe degenerative osteoarthritis of the left knee Condition: stable Disposition: PACU (Then admitted under observation status for postoperative rehabilitation and pain management) Brief History: This 64-year-old gentleman presented presented to the clinic with complaints of bilateral knee pain. The patient has had multiple modalities including injection therapies, anti-inflammatories, and physical therapy. He continues to have significant limitations in his activities of daily living. Because of this, he wishes to proceed with total knee arthroplasty. Risks and complications were discussed with her. Consents were signed and questions were answered. Procedure: The patient was brought to the operating theater, and after undergoing adequate general intubated anesthesia, ASA 3, the left lower extremity was prepped with DuraPrep and draped in usual fashion following placement of a tourniquet high on the leg. The leg was then draped free. Tourniquet was placed on the leg but was not elevated throughout the surgical procedure. Following exposure of the site of surgery, a surgical pause was performed. At the time of the surgical pause, we confirmed the site and side of surgery. Additionally, we confirmed the appropriate and timely administration of preoperative antibiotics, Ancef 2 g. Tranexamic acid 1 g was given preoperatively and will be given again on the floor for 1 dose postoperatively. The availability of equipment was confirmed, and the patient's identity was verbalized as well. Following the surgical pause, an incision was made centering over the patella continuing proximally and distally as necessary to allow access to the knee joint. Dissection continued through skin and soft tissues using a scalpel. Hemostasis was obtained using electrocautery. The skin incision was followed by a median parapatellar arthrotomy. The leg was extended and the patella was able to be displaced laterally. Appropriate arrays and markers were placed in appropriate position for use of the [facility]. Preoperative planning had been accomplished and was discussed in detail with the [facility] lifeline representatives. Intraoperative mapping of the femur and tibia was accomplished after the arrays were placed. Once we had accomplished the Raf mapping, we began the appropriate resections for placement of the prosthesis. The plan was for a cruciate retaining left total knee arthroplasty. Once appropriate mapping had been accomplished retraction was established using manual retraction by the [facility] leg positioner and retractors. The knee was evaluated. There was eburnation particularly of the medial femoral condyle.? There were large osteophytes circumferentially about the trochlear groove as well as the patella and medial tibial plateau.? After balancing the knee within the Raf program, the appropriate bone resection was accomplished. Initial resection was accomplished on the tibia followed by appropriate resections on the femur. We had performed a medial release at the beginning of the procedure to allow for placement of the array. Proximal tibia was evaluated and it was felt that appropriate size for the tibia was a size 5. A trial reduction was accomplished after osteophytes had been removed, the medial and lateral meniscus were excised, and bone cuts had been accomplished as above. We had removed the anterior cruciate ligament at the beginning of the case and preserved the posterior cruciate ligament. Trial reduction was accomplished with a size 4 femoral cruciate retaining component and a size 5 CS tibial bearing insert which was 9 mm in thickness. Initial trial reduction demonstrated that the knee maintained a flexion contracture, so a posterior release was accomplished which improved this. With this revision, the components were noted to fit nicely, extension was excellent, and stability was excellent as well. Trial components were removed after the femur had been drilled. Prior to removal of the tibial tray which had been pinned in position with appropriate rotation as determined by the Raf plan, we broached the tibia. Subsequently, the 4 drill holes were made for the prosthetic component. All trial components had been removed, and the wound was irrigated. Plans were made for insertion of the prosthetic components. Prior to this, the patella was manually prepared. After resection of the articular surface with the jigging system, it was measured and measured a 35 mm patella. We resected approximately 10 mm of patella, and patellar height was restored with the patellar component. Once again, the wound was irrigated. The Tritanium tibia was impacted into position.? The beaded femur was then impacted into position in a cementless fashion. The CS tibial insert was placed prior to placement of the femoral component. The patella was pressed into position with a patellar clamp.? Exparel was injected about the components deep and superficially. The knee was then copiously irrigated with betadine and saline and suctioned dry. Attention was then directed to closure. Closure was accomplished with 0 Vicryl in the fascial tissues followed by a running #1 strata fix 1 from proximal to distal and 1 from distal to proximal.? This was followed by Surgiflo and vancomycin powder. Subcutaneous tissues were closed with 2-0 Monocryl strata fix, and the skin was closed in a running subcuticular fashion with 3-0 Monocryl strata fix.? A sterile dressing was then placed consisting of Dermabond Prineo, OpSite, sterile soft roll including over the foot, and an Gomez wrap. The patient was returned the Recovery Room in a satisfactory condition. X-rays were obtained and reviewed there.? The patient will be discharged to the floor for postoperative rehabilitation and pain management. Related Problem List Diagnoses (1) Primary osteoarthritis of left knee:
--- NOTE | 2024-12-09 10:58 | XR_ITS ---
WS: [id number] Exam: XR knee LT 1-2V [id number] Date/Time of Exam: 12/09/2024 11:02 AM Reason For Exam: Status post total knee arthroplasty Comparison 11/10/2024. LEFT total knee replacement is in excellent position. Postoperative changes in the adjacent soft tissues. XR/XR knee LT 1-2V [id number] IMPRESSION: 1. LEFT total knee replacement in excellent position.
[2024-12-09] MEDS: fentaNYL 50 mcg/mL INJ 2mL IVP ×2 (11:00→11:05)
[2024-12-09] MEDS: HYDROmorphone 1 mg/mL INJ 1 mL 0.5 MG IVP (11:24)
--- NOTE | 2024-12-09 11:45 | ANE.PACU2 ---
Inpatient post-anesthesia follow up: Airway intact: Yes Vital signs: Temperature 97.6 F Pulse Rate 92 Respiratory Rate 16 Blood Pressure 105/77 Pulse Oximetry 97 Oxygen Delivery Me thod Nasal Cannula Oxygen Flow Rate 3 Fraction of Inspir ed Oxygen Hydration adequate: Yes Nausea and vomiting: No Pain level: 1 Mental status: Baseline
[2024-12-09 12:17] LABS: Glucose Point of Care 180 mg/dL (70-110)
[2024-12-09] MEDS: oxyCODONE 5 mg IR Tab/Cap PO ×3 (12:45→21:35)
[2024-12-09] MEDS: baclofen 10 mg Tablet 20 MG PO ×2 (15:53→21:36)
[2024-12-09] MEDS: tranexamic acid 1,000 MG/100 ML PREMIX 600 MG IV (15:53)
[2024-12-09 16:40] LABS: Glucose Point of Care 304 mg/dL (70-110)
[2024-12-09] MEDS: lamoTRIgine 25 mg Tablet PO (16:58)
[2024-12-09] MEDS: sennosides-docusate Tablet 2 TAB PO (16:59)
[2024-12-09] MEDS: chlorhexidine gluconate 0.12% Btl 473 mL 30 ML MUCOUS MEM ×2 (16:59→21:39)
[2024-12-09] MEDS: iron polysaccharide complex 150 mg Capsule PO (16:59)
[2024-12-09] MEDS: calcium carbonate 500 mg Chew Tablet 1000 MG PO (16:59)
[2024-12-09] MEDS: tamsulosin 0.4 mg Capsule PO (16:59)
[2024-12-09] MEDS: atorvastatin 40 mg Tablet PO (21:36)
[2024-12-10] VITALS (9 sets, daily range): BP systolic 115–158; BP diastolic 74–80; PULSE 82–90; RESP 16–20; TEMP 36.4–36.6; O2SAT 94–97
[2024-12-10] MEDS: ceFAZolin 2,000 mg SDV 2000 MG IVP ×2 (01:16→08:07)
[2024-12-10] MEDS: morphine IR 15 mg Tablet PO ×2 (01:23→13:45)
[2024-12-10] MEDS: acetaminophen 1,000 MG/100 ML PIGGYBACK 400 MG IV (05:47)
[2024-12-10] MEDS: oxyCODONE 5 mg IR Tab/Cap PO ×2 (05:47→11:11)
[2024-12-10 06:03] LABS: Basophils % 0.1 %; Eosinophils % 0.1 %; Hematocrit 24.7 % (37-53); Lymphocytes # 2.3 10^3/uL (0.8-4.8); Lymphocytes % 16.5 %; Mean Corpuscular HGB Conc 32.4 g/dL (30-55); Mean Corpuscular Hemoglobin 30.4 pg (27-33); Mean Corpuscular Volume 93.9 fl (82-101); Mean Platelet Volume 11.2 fL (7.4-10.4); Monocytes # 1.1 10^3/uL (0.2-0.9); Neutrophils # 10.58 10^3/uL (1.8-7.7); Neutrophils % 74.8 %; Nucleated Red Blood Cells % 0 %; Platelet Count 164 10^3/cmm (157-399); Red Blood Count 2.63 10^6/uL (3.85-5.65); Red Cell Distribution Width 15.3 % (12.1-15.1); White Blood Count 14.13 10^3/uL (3.29-11.43)
[2024-12-10 06:40] LABS: Anion Gap 15.4 (5-19); Blood Urea Nitrogen 14 mg/dL (8-23); Calcium 8.6 mg/dL (8.5-10.5); Carbon Dioxide 23 mmol/L (22-29); Chloride 103 mmol/L (98-107); Creatinine Clr Calc Pharmacy 83.8808; Glomerular Filtration Rate 85.5 mL/min (90-130); Glucose 245 mg/dL (65-115); Osmolality Calculated 293 mOsm/kg (285-295); Potassium 4.4 mmol/L (3.5-5.1); Sodium 137 mmol/L (136-145)
[2024-12-10] MEDS: lamoTRIgine 25 mg Tablet PO (08:07)
[2024-12-10] MEDS: sennosides-docusate Tablet 2 TAB PO (08:07)
[2024-12-10] MEDS: metformin XR 500 MG Tablet PO (08:07)
[2024-12-10] MEDS: aspirin 325 mg EC Tablet PO (08:07)
[2024-12-10] MEDS: chlorhexidine gluconate 0.12% Btl 473 mL 30 ML MUCOUS MEM ×2 (08:08→12:29)
[2024-12-10] MEDS: calcium carbonate 500 mg Chew Tablet 1000 MG PO (08:08)
[2024-12-10] MEDS: tamsulosin 0.4 mg Capsule PO (08:08)
[2024-12-10] MEDS: CELEcoxib 200 mg Capsule PO (08:08)
[2024-12-10] MEDS: multivitamin therapeutic Tablet 1 TAB PO (08:08)
[2024-12-10] MEDS: iron polysaccharide complex 150 mg Capsule PO (08:08)
[2024-12-10] MEDS: duloxetine 60 mg Capsule PO (08:08)
[2024-12-10] MEDS: cholecalciferol (vitamin D3) 1,000 unit Tablet 1000 UNIT PO (08:08)
[2024-12-10] MEDS: baclofen 10 mg Tablet 20 MG PO (08:08)
[2024-12-10] MEDS: acetaminophen 500 mg Tablet 1000 MG PO (11:10)
--- NOTE | 2024-12-10 13:15 | P.DS_ITS ---
Discharge Providers Date of Admission: 12/09/24 10:30 Date of Discharge: December 10, 2024 Attending Provider at Admission: Mallika Aguillon MD Attending Provider at Discharge: Mallika Aguillon MD Primary Care Provider: Tammi Ames MD Diagnoses at Discharge Discharge Diagnosis (1) Primary osteoarthritis of left knee: Status: Chronic (2) Status post total left knee replacement not using cement: Status: Acute Permanent problem details: Date of procedure: December 09, 2024 Diagnosis: Primary osteoarthritis left knee Procedure done: Left knee with Raf guidance Implants: The Rolly total knee system with a size 4 triathlon beaded cruciate retaining femur left, a triathlon titanium tibial component size 5 beaded, a triathlon X3 tibial bearing CS insert size 5 X 9 mm and a beaded triathlon titanium asymmetric patella size 35 x 10 mm Reason for Visit Reason for Visit: M17.11 Brief History: This 64-year-old gentleman presented presented to the clinic with complaints of bilateral knee pain. The patient has had multiple modalities including injection therapies, anti-inflammatories, and physical therapy. He continues to have significant limitations in his activities of daily living. Because of this, he wishes to proceed with total knee arthroplasty. Risks and complications were discussed with her. Consents were signed and questions were answered. Physical Exam Const: COMMON NORMALS: no acute distress, average body habitus, patient orie nted x3 and alert GENERAL APPEARANCE: cooperative and comfortable ORIENTATION/CONSCIOUSNESS: Yes awake HENMT: COMMON NORMALS: normocephalic and atraumatic HEAD & SCALP: normocephalic and atraumatic Eye: GENERAL EYE: appearance normal, both eyes and all related structures Chest: COMMONS NORMALS: normal inspection of the chest Resp: COMMON NORMALS: normal respiratory effort EFFORT & INSPECTION: Yes able to speak in complete sentences and Yes symmetric chest movement Extremity: LEFT LOWER EXTREMITY: Yes knee joint (Dressing dry and intact) Left knee: Yes ROM (Able to straight leg raise) and Yes neurovascular exam (Intact with no evidence of DVT) Neuro: COMMON NORMALS: patient oriented x3 SENSORIUM/ORIENTATION: Yes alert Psych: COMMON NORMALS: mental status grossly normal APPEARANCE: Yes grossly normal ATTITUDE: Yes calm and Yes engaged ATTENTION/CONCENTRATION: Yes attention grossly intact Skin: COMMON NORMALS: no rashes or lesions noted GENERAL SKIN EXAM: no rashes or lesions noted Urinary Catheter Management: Luna: Cath Placed During This Visit: yes, but has since been removed by the nurse Reason for Continuing Indwelling Catheter: Accurate Measurement of Urinary Output in Critically Ill Patients Urinary Catheter Date of Insertion: 12/09/24 Urinary Catheter Time of Insertion: 08:00 Date Urinary Catheter Removed: 12/10/24 Time Urinary Catheter Discontinued: 06:53 Discharge Data Studies Completed and Pending Completed Studies During Hospitalization Category Date Time Status XR knee LT 1-2V 07908 Urgent Exams 12/09/24 10:58 Completed Radiology Impressions Knee X-Ray 12/09/24 10:58 IMPRESSION: 1. LEFT total knee replacement in excellent position. Laboratory Results WBC 14.13 10^3/uL (3.29-11.43) H 12/10/24 05:37 RBC 2.63 10^6/uL (3.85-5.65) L 12/10/24 05:37 Hgb 8.00 g/dL (11.27-16.99) L 12/10/24 05:37 Hct 24.7 % (37-53) L 12/10/24 05:37 MCV 93.9 fl (82-101) 12/10/24 05:37 MCH 30.4 pg (27-33) 12/10/24 05:37 MCHC 32.4 g/dL (30-55) 12/10/24 05:37 RDW 15.3 % (12.1-15.1) H 12/10/24 05:37 Plt Count 164 10^3/cmm (157-399) 12/10/24 05:37 MPV 11.2 fL (7.4-10.4) H 12/10/24 05:37 Neut % (Auto) 74.8 % 12/10/24 05:37 Lymph % (Auto) 16.5 % 12/10/24 05:37 [place] % (Auto) 8.0 % 12/10/24 05:37 Eos % (Auto) 0.1 % 12/10/24 05:37 Baso % (Auto) 0.1 % 12/10/24 05:37 Neut # (Auto) 10.58 10^3/uL (1.8-7.7) H 12/10/24 05:37 Lymph # (Auto) 2.3 10^3/uL (0.8-4.8) 12/10/24 05:37 [place] # (Auto) 1.1 10^3/uL (0.2-0.9) H 12/10/24 05:37 Eos # (Auto) 0.0 10^3/uL (0.0-0.8) 12/10/24 05:37 Baso # (Auto) 0.0 10^3/uL (0.0-0.1) 12/10/24 05:37 Nucleated RBC % (auto) 0 % 12/10/24 05:37 Nucleated RBCs # 0.0 /100WBC 12/10/24 05:37 Sodium 137 mmol/L (136-145) 12/10/24 05:37 Potassium 4.4 mmol/L (3.5-5.1) 12/10/24 05:37 Chloride 103 mmol/L (98-107) 12/10/24 05:37 Carbon Dioxide 23 mmol/L (22-29) 12/10/24 05:37 Anion Gap 15.4 (5-19) 12/10/24 05:37 BUN 14 mg/dL (8-23) 12/10/24 05:37 Creatinine 0.9 mg/dL (0.7-1.2) 12/10/24 05:37 GFR Calculation 85.5 mL/min (90-130) L 12/10/24 05:37 Glucose 245 mg/dL (65-115) H 12/10/24 05:37 POC Glucose 304 mg/dL (70-110) H 12/09/24 15:57 Calculated Osmolality 293 mOsm/kg (285-295) 12/10/24 05:37 Calcium 8.6 mg/dL (8.5-10.5) 12/10/24 05:37 Blood Type O Positive 12/09/24 09:48 Rho(D) Type Rh positive 12/09/24 09:48 Antibody Screen Negative 12/09/24 09:48 Vitals Last Vital Signs Temp 97.7 F 12/10/24 12:05 Pulse 90 12/10/24 12:05 Resp 19 H 12/10/24 12:05 BP 127/76 12/10/24 12:05 Pulse Ox 95 12/10/24 12:05 O2 Del Method Room Air 12/10/24 12:05 O2 Flow Rate 2 12/10/24 03:35 Discharge Plan Discharge Patient Disposition: Home Health Service Condition: Stable Prescriptions: New celecoxib 200 mg Capsule 200 mg PO DAILY 30 Days Qty: 30 0RF acetaminophen 500 mg Tablet 1,000 mg PO Q8H 15 Days Qty: 90 0RF aspirin 325 mg Tablet,Delayed Release (Dr/Ec) 325 mg PO DAILY 30 Days Qty: 30 0RF oxycodone 5 mg Tablet 5 - 10 mg PO Q4H PRN (Reason: Moderate To Severe Pain) 7 Days Qty: 40 0RF Continued furosemide [Lasix] 20 mg tablet 20 mg PO DAILY PRN (Reason: Edema) Qty: 90 3RF fluticasone propionate [Allergy Relief (fluticasone)] 50 mcg/actuation spray,suspension 1 spray intranasal DAILY PRN (Reason: Runny Nose) Rx Instructions: administer into each nostril azelastine 137 mcg (0.1 %) aerosol,spray 2 spray INTRANASAL BID 30 Days Qty: 30 6RF Rx Instructions: administer into each nostril morphine 15 mg tablet 15 mg PO TID PRN (Reason: Pain) Rx Instructions: fill on or after 10/26/21 (DME) Diabetic shoes with 3 pairs of inserts See Rx Instructions .Route .MEDSUPPLY Qty: 1 0RF Rx Instructions: As directed (DME) diabetic shoes with 3 inserts See Rx Instructions .Route .MEDSUPPLY Qty: 1 0RF Rx Instructions: As directed to the shoe guys Ozempic 0.25 mg or 0.5 mg(2 mg/1.5 mL) pen injector 0.25 mg SUBCUT ONCE baclofen 20 mg tablet 20 mg PO TID duloxetine 60 mg capsule,delayed release(DR/EC) 60 mg PO DAILY Vitamin B-12 1 cap PO DAILY Trelegy Ellipta 100-62.5-25 mcg blister with device 1 inh inhalation DAILY Qty: 60 3RF coenzyme Q10 100 mg tablet,chewable 100 mg PO DAILY lamotrigine 25 mg tablet 25 mg PO BID metformin 500 mg tablet extended release 24 hr 500 mg PO DAILY sucralfate 100 mg/mL suspension 100 mg PO PRN PRN (Reason: Acid Reflux) (DME) lancets [Accu-Chek Softclix Lancets] Misc See Rx Instructions .ROUTE .MEDSUPPLY Qty: 100 Rx Instructions: As directed (DME) pen needle, diabetic [BD Ultra-Fine Short Pen Needle] 31 gauge x 5/16 needle See Rx Instructions .ROUTE .MEDSUPPLY Qty: 1200 Rx Instructions: As directed pregabalin 75 mg capsule 75 mg PO TID nitroglycerin 2 % ointment 0.5 inch transdermal BID Qty: 30 0RF (DME) pen needle, diabetic [Comfort EZ Pen [place]] 29 gauge x 1/2 needle See Rx Instructions .ROUTE .MEDSUPPLY Qty: 50 2RF Rx Instructions: As directed for Novalog and Levemir albuterol sulfate [ProAir HFA] 90 mcg/actuation HFA aerosol inhaler 2 puff INHALATION Q6H PRN (Reason: Shortness Of Breath) Qty: 8.5 0RF (DME) blood-glucose meter [OneTouch Ultra2 Meter] [facility] See Rx Instructions .ROUTE .MEDSUPPLY 5RF Rx Instructions: FOUR DAILY (DME) lancets [OneTouch Delica Lancets] 30 gauge [facility] [place] See Rx Instructions .Route Qty: 100 0RF Rx Instructions: As directed (DME) OneTouch Ultra Test Strip See Rx Instructions .ROUTE .MEDSUPPLY Qty: 300 3RF Rx Instructions: use 3 times daily in one touch meter 90 day supply tamsulosin 0.4 mg capsule 0.4 mg PO BID Qty: 60 12RF mupirocin 2 % ointment 1 applic topical BID Qty: 22 1RF Rx Instructions: Apply to affected area(s) until healed atorvastatin 40 mg tablet 40 mg PO BEDTIME@2100 Qty: 90 3RF Lantus U-100 Insulin 44 units pen injector 40 units SUBCUT DAILY aspirin 81 mg tablet,delayed release (DR/EC) 81 mg PO DAILY@0900 Jardiance 25 mg tablet 25 mg PO DAILY@09 Vitamin D3 1 cap PO DAILY Discharge Orders: Discharge Order (Routine); Ordered 12/10/24 Ordered By: Mallika Aguillon Referrals: [facility] [Outside] Mallika Aguillon MD [Physician] - 12/24/24 2:15 pm Discharge Diet: Advance as tolerated and Usual diet Discharge Activity: Increase activity as tolerated, Limit activity as instructed, Use walker/crutches as instructed and As per PT/OT instructions Patient Instructions: Aspirin (By mouth), Oxycodone, Rapid Release (By mouth), Celecoxib (By mouth), Acute Wound Care (DC), Total Knee Replacement (GEN), Opioid Safety, Post Anesthesia Care Activity Restrictions/Additional Instructions: Gait training, ambulation, and strengthening per physical therapy. You may weight-bear as tolerated. Ice to left knee. You may shower, but do not submerge your knee in water. Maintain clear dressing until it comes off on its own or begins to leak. Then you may remove it. We we will remove it at your office visit otherwise. Discharge Attestations Time Spent in Discharge Care*: greater than 30 min Specific Discharge Activities: educating patient, documenting/other paperwork and evaluating patient/reviewing data Quality Metrics Clinical Quality Measures [ No reported AMI, CVA or VTE this stay] Coding Level of Care Code Acute Code for Chg Fwd Diagnoses Primary osteoarthritis of left knee M17.12 Status post total left knee replacement not using cement Z96.652
== END 2024-12-10 14:10 | disposition home health service (06) ==
LOC: MEDSURG 10:33
PROVIDERS: Admitting Provider Specialist; PCP Internal Medicine; Visit Provider Specialist
PROC: 8E0Y0CZ Robotic Assisted Procedure of Lower Extremity, Open Approach (ICD-10-PCS; CPT 27447; principal; 2024-12-09 07:35)
DX: M17.12 Unilateral primary osteoarthritis, left knee (principal); M23.8X2 Other internal derangements of left knee; I10 Essential (primary) hypertension; J44.9 Chronic obstructive pulmonary disease, unspecified; I25.2 Old myocardial infarction; G62.9 Polyneuropathy, unspecified; F41.9 Anxiety disorder, unspecified; E11.9 Type 2 diabetes mellitus without complications; Z86.73 Personal history of transient ischemic attack (TIA), and cerebral infarction without residual deficits; I73.9 Peripheral vascular disease, unspecified; I11.0 Hypertensive heart disease with heart failure; I50.32 Chronic diastolic (congestive) heart failure; E03.9 Hypothyroidism, unspecified; N31.9 Neuromuscular dysfunction of bladder, unspecified; E55.9 Vitamin D deficiency, unspecified; Z72.0 Tobacco use; Z79.82 Long term (current) use of aspirin; Z79.899 Other long term (current) drug therapy; Z79.4 Long term (current) use of insulin; Z79.85 Long-term (current) use of injectable non-insulin antidiabetic drugs; Z79.84 Long term (current) use of oral hypoglycemic drugs; Z88.8 Allergy status to other drugs, medicaments and biological substances
CPT/HCPCS: 27447; 36415; 36416; 51702; 73560; 80048; 82962; 85025; 86850; 86900; 97110; 97161; 97165; A4216; C1776; C9290; G0378; J0131; J0690; J1171; J2704; J3010; J3370; J3490; J3535; J7030; P9045

== ENCOUNTER 2024-12-17 17:34 | Emergency (ER) | payer MEDICARE, SELFPAY ==
[2024-12-17 17:40] VITALS: BP 117/52; PULSE 89; RESP 17; TEMP 36.6; O2SAT 98; BMI 28.6
--- NOTE | 2024-12-17 17:51 | XRR_ITS ---
PROCEDURE INFORMATION: Exam: XR Left Knee Exam date and time: 12/17/2024 5:54 PM Age: 64 years old Clinical indication: Injury or trauma; Fall; Blunt trauma; Left; Prior surgery; Surgery date: 3-7 days post-operative; Surgery type: Knee replacement; Additional info: Fall directly on left knee, replacement 1 week ago TECHNIQUE: Imaging protocol: Radiologic exam of the left knee. Views: 3 views. COMPARISON: CR XR knee LT 1-2V 98123 12/09/2024 11:04 AM FINDINGS: Bones/joints: Postsurgical changes total knee arthroplasty again seen. No dislocation. Soft tissues: Improving postsurgical changes of the soft tissues as well as joint effusion. Other findings: There are no definitive perihardware lucencies. XR/XR knee LT 3V* [id number] IMPRESSION: As above.
--- NOTE | 2024-12-17 18:03 | W.ED.FALL ---
HPI - Fall General: Chief Complaint: Fall Stated Complaint: fall (bruising) Surgery 7xdaysago Time Seen by Provider: 12/17/24 17:45 Source: patient Mode of arrival: ambulatory Limitations: no limitations History of Present Illness: Patient is a 64-year-old male who presents the emergency department complaining of left knee pain. Of note he had surgery performed on 12/09, he had a left knee replacement. States he has been doing okay up until yesterday when he had spasming in his legs while using his walker, and this caused him to fall forward directly onto his left knee. He notes pain swelling and bruising that is increased, states pain comes in waves and goes down his left leg. Also notes some bruising in his left foot. He has been taking tramadol for pain. States that he is just here to get an x-ray to make sure he did not rebreak something. He has not blood thinner. MD complaint: fall Onset (ago): hour(s) Fall from: standing Place fall occurred: home Prolonged down time: no Symptoms prior to fall: none Context: other (Lost balance using walker, fell on left knee recently operated on) Location of injury - extremities: Left: knee Associated symptoms-after fall: Denies abdominal pain, chest pain, headache(s) or neck pain Related Data Home Medications ?Medication ?Instructions ?Recorded ?Confirmed aspirin 81 mg tablet,delayed 81 mg PO DAILY@0900 02/16/21 12/08/24 release Vitamin D3 1 cap PO DAILY 02/22/21 12/08/24 empagliflozin 25 mg tablet 25 mg PO DAILY@09 02/22/21 12/08/24 (Jardiance) fluticasone propionate 50 1 spray intranasal DAILY PRN Runny 07/19/21 12/08/24 mcg/actuation nasal Nose spray,suspension (Allergy Relief (fluticasone)) Lantus U-100 Insulin 40 units SUBCUT DAILY 03/09/22 12/08/24 baclofen 20 mg tablet 20 mg PO TID 06/13/22 12/08/24 duloxetine 60 mg capsule,delayed 60 mg PO DAILY pain 06/13/22 12/08/24 release morphine 15 mg immediate release 15 mg PO TID PRN Pain 06/13/22 12/08/24 tablet Vitamin B-12 1 cap PO DAILY 11/01/22 12/08/24 coenzyme Q10 100 mg chewable tablet 100 mg PO DAILY 07/19/23 12/08/24 lancets (Accu-Chek Softclix #100 ea 07/01/24 12/10/24 Lancets) metformin 500 mg tablet,extended 500 mg PO DAILY 07/01/24 12/08/24 release 24 hr pen needle, diabetic 31 gauge x #1,200 ea 07/01/24 12/10/2403/06 (BD Ultra-Fine Short Pen Needle) semaglutide 0.25 mg or 0.5 mg (2 0.25 mg SUBCUT ONCE 07/01/24 12/08/24 mg/1.5 mL) subcutaneous pen injector (Eptica) sucralfate 100 mg/mL oral 100 mg PO PRN PRN Acid Reflux 07/01/24 12/08/24 suspension lamotrigine 25 mg tablet 25 mg PO BID 08/04/24 12/08/24 pregabalin 75 mg capsule 75 mg PO TID 08/04/24 12/10/24 Previous Rx's ?Medication ?Instructions ?Recorded pen needle, diabetic 29 gauge x #50 ea 12/22/1910/23 (Comfort EZ Pen [place]) albuterol sulfate 90 mcg/actuation 2 puff inhalation Q6H PRN 01/16/20 aerosol inhaler (ProAir HFA) Shortness Of Breath #8.5 grams blood-glucose meter (EcochlorTouch 08/26/21 Ultra2 Meter) lancets 30 gauge (OneTouch Delica #100 ea 08/26/21 Lancets) blood sugar diagnostic (OneTouch #300 ea 08/29/21 Ultra Test strips) tamsulosin 0.4 mg capsule 0.4 mg PO BID #60 caps 09/30/21 furosemide 20 mg tablet (Lasix) 20 mg PO DAILY PRN Edema #90 tabs 10/31/21 azelastine 137 mcg (0.1 %) nasal 2 spray intranasal BID Runny Nose 01/17/22 spray 30 days #30 mL mupirocin 2 % topical ointment 1 applic topical BID #22 grams 07/14/22 fluticasone fur. 100 mcg-umeclid 1 inh inhalation DAILY #60 ea 01/19/23 62.5 mcg-vilant 25 mcg inhalat.powder (Trelegy Ellipta) Diabetic shoes with 3 pairs of #1 ea 04/17/23 inserts atorvastatin 40 mg tablet 40 mg PO BEDTIME@2100 #90 tabs 10/24/23 diabetic shoes with 3 inserts #1 ea 12/31/23 nitroglycerin 2 % transdermal 0.5 inch transdermal BID #30 grams 10/03/24 ointment acetaminophen 500 mg tablet 1,000 mg (2 x 500 mg) PO Q8H 15 12/10/24 days #90 tabs aspirin 325 mg tablet,delayed 325 mg PO DAILY 30 days #30 tabs 12/10/24 release celecoxib 200 mg capsule 200 mg PO DAILY 30 days #30 caps 12/10/24 tramadol 50 mg tablet 50 - 100 mg (1 - 2 x 50 mg) PO Q4H 12/12/24 PRN pain 7 days #40 tabs Allergies Allergy/AdvReac Type Severity Reaction Status Date / Time amitriptyline Allergy ALGY-Conges Verified 12/17/24 17:43 sonia temazepam Allergy ALGY-Conges Verified 12/17/24 17:43 sonia codeine AdvReac ADR-Gastrointestinal Verified 12/17/24 17:44 Upset oxycodone AdvReac ADR-Gastrointestinal Verified 12/17/24 17:44 Upset Review of Systems General: Reports: 10 or more systems reviewed and unremarkable except in HPI and below Const: Reports: other (Fall); Denies: fever(s) or chills Card: Denies: chest pain Resp: Denies: dyspnea or productive cough GI: Denies: abdominal pain, nausea, vomiting or diarrhea : Denies: flank pain Musc: Reports: joint pain (Left knee) and joint swelling (Left knee); Denies: neck pain, back pain, extremity pain, extremity swelling, joint redness, joint warmth, limited range of motion or muscle weakness Skin/Breast: Denies: rash Neuro: Denies: headache(s), numbness in extremities or weakness in extremities PFSH ED PFSH: Medical History Primary osteoarthritis of knees, bilateral Degenerative joint disease of spine Smoker unmotivated to quit PAD (peripheral artery disease) NSTEMI (non-ST elevated myocardial infarction) Chronic neck and back pain Heart failure with preserved ejection fraction Echo 12/04/20 EF 55% Allergic rhinosinusitis Neurogenic bladder Iron deficiency anemia Vitamin D deficiency Dyslipidemia COPD, moderate Controlled type 2 diabetes mellitus, without long-term current use of insulin Essential (primary) hypertension Hypothyroidism, unspecified Gastritis Surgical History H/O oral surgery Teeth extracted H/O circumcision H/O colonoscopy 11/20/2016 H/O esophagogastroduodenoscopy 2015 History of back surgery Lumbar laminectomy x 2 Family History Father Diabetes Stroke Bleeding disorder Mother Diabetes Cancer SKIN Other CAD (coronary artery disease) Lung disease Denies family history of Anesthesia complication Social History Smoking and tobacco/nicotine status: never used tobacco/nicotine Quit status (tobacco/nicotine): has tried quititng Alcohol intake: never Substance/Drug Use: never Lives independently: Yes Household members: spouse Marital status: Current occupational status: disabled Do you think of yourself as: Straight/Heterosexual Current gender identity: Male Physical Exam Const: COMMON NORMALS: patient oriented x3, no limitations, alert and well nourished GENERAL APPEARANCE: disheveled OTHER: Appearing in distress from pain HENMT: COMMON NORMALS: normocephalic and atraumatic HEAD & SCALP: normocephalic and atraumatic Neck/C-Spine: COMMON NORMALS: full ROM, supple and no meningeal signs Resp: COMMON NORMALS: normal respiratory effort, No use of accessory muscles and clear to auscultation bilaterally AUSCULTATION: clear to auscultation bilaterally Cardio: COMMON NORMALS: regular rate and regular rhythm RATE: regular rate RHYTHM: regular rhythm Extremity: COMMON NORMALS: capillary refill normal, no calf tenderness and no pedal edema NARRATIVE EXTREMITY EXAM: Postoperative left knee covered with bandage, mild amount of dried blood noted. Swelling of the left knee noted, bruising to the medial aspect extending down the left lower leg towards his left foot. Distal pulses palpable in his foot. No calf edema. No redness noted. Neuro: COMMON NORMALS: patient oriented x3, moves all extremities, no focal motor deficits and no sensory deficits noted SENSORIUM/ORIENTATION: Yes alert MENINGEAL SIGNS: Yes no meningeal signs Skin: COMMON NORMALS: no rashes or lesions noted GENERAL SKIN EXAM: no rashes or lesions noted Course Vital Signs: Vital signs: Vital Signs Temperature 98 F 12/17/24 17:40 Pulse Rate 89 12/17/24 17:40 Respiratory Rate 17 12/17/24 17:40 Blood Pressure 117/52 12/17/24 17:40 Pulse Oximetry 98 12/17/24 17:40 Oxygen Delivery Me thod Room Air 12/17/24 17:40 MDM - Fall Medical Decision Making Patient had a fall today, surgical history is he had knee replaced on his left knee last week. Overall has been doing well, states that his leg just gave out and he fell directly on the left knee. Bruising swelling reported, distal neurovascular exam was intact, there was no calf swelling or tenderness and I do not suspect blood clot. I do suspect contusion, his x-ray showed no acute abnormalities. He has tramadol that he will take at home, states he was just here to make sure everything was intact. Will have him follow-up routinely with orthopedics, return precautions given. I informed him if he starts having swelling, pain in his calf, or other concerns to return back for an ultrasound. He verbalized understanding. Will be discharged home at this time. Lab Data Radiology Impressions Knee X-Ray 12/17/24 17:51 IMPRESSION: As above. All radiology interpretation(s) finalized by discharge Discharge Plan Discharge Patient Disposition: Home Clinical Impression: Postoperative pain of left knee Fall Qualifiers: Encounter type: initial encounter Qualified Code(s): W19.XXXA - Unspecified fall, initial encounter Condition: Stable Prescriptions: No Action furosemide [Lasix] 20 mg tablet 20 mg PO DAILY PRN (Reason: Edema) Qty: 90 3RF fluticasone propionate [Allergy Relief (fluticasone)] 50 mcg/actuation spray,suspension 1 spray intranasal DAILY PRN (Reason: Runny Nose) Rx Instructions: administer into each nostril azelastine 137 mcg (0.1 %) aerosol,spray 2 spray INTRANASAL BID 30 Days Qty: 30 6RF Rx Instructions: administer into each nostril morphine 15 mg tablet 15 mg PO TID PRN (Reason: Pain) Rx Instructions: fill on or after 10/26/21 (DME) Diabetic shoes with 3 pairs of inserts See Rx Instructions .Route .MEDSUPPLY Qty: 1 0RF Rx Instructions: As directed (DME) diabetic shoes with 3 inserts See Rx Instructions .Route .MEDSUPPLY Qty: 1 0RF Rx Instructions: As directed to the shoe alexis Ozempic 0.25 mg or 0.5 mg(2 mg/1.5 mL) pen injector 0.25 mg SUBCUT ONCE baclofen 20 mg tablet 20 mg PO TID duloxetine 60 mg capsule,delayed release(DR/EC) 60 mg PO DAILY Vitamin B-12 1 cap PO DAILY Trelegy Ellipta 100-62.5-25 mcg blister with device 1 inh inhalation DAILY Qty: 60 3RF coenzyme Q10 100 mg tablet,chewable 100 mg PO DAILY lamotrigine 25 mg tablet 25 mg PO BID metformin 500 mg tablet extended release 24 hr 500 mg PO DAILY sucralfate 100 mg/mL suspension 100 mg PO PRN PRN (Reason: Acid Reflux) (DME) lancets [Accu-Chek Softclix Lancets] Misc See Rx Instructions .ROUTE .MEDSUPPLY Qty: 100 Rx Instructions: As directed (DME) pen needle, diabetic [BD Ultra-Fine Short Pen Needle] 31 gauge x 5/16 needle See Rx Instructions .ROUTE .MEDSUPPLY Qty: 1200 Rx Instructions: As directed pregabalin 75 mg capsule 75 mg PO TID nitroglycerin 2 % ointment 0.5 inch transdermal BID Qty: 30 0RF (DME) pen needle, diabetic [Comfort EZ Pen [place]] 29 gauge x 1/2 needle See Rx Instructions .ROUTE .MEDSUPPLY Qty: 50 2RF Rx Instructions: As directed for Novalog and Levemir albuterol sulfate [ProAir HFA] 90 mcg/actuation HFA aerosol inhaler 2 puff INHALATION Q6H PRN (Reason: Shortness Of Breath) Qty: 8.5 0RF (DME) blood-glucose meter [OneTouch Ultra2 Meter] Misc See Rx Instructions .ROUTE .MEDSUPPLY 5RF Rx Instructions: FOUR DAILY (DME) lancets [OneTouch Delica Lancets] 30 gauge misc See Rx Instructions .Route Qty: 100 0RF Rx Instructions: As directed (DME) OneTouch Ultra Test Strip See Rx Instructions .ROUTE .MEDSUPPLY Qty: 300 3RF Rx Instructions: use 3 times daily in one touch meter 90 day supply tamsulosin 0.4 mg capsule 0.4 mg PO BID Qty: 60 12RF mupirocin 2 % ointment 1 applic topical BID Qty: 22 1RF Rx Instructions: Apply to affected area(s) until healed atorvastatin 40 mg tablet 40 mg PO BEDTIME@2100 Qty: 90 3RF tramadol 50 mg tablet 50 - 100 mg PO Q4H PRN (Reason: pain) 7 Days Qty: 40 0RF Lantus U-100 Insulin 44 units pen injector 40 units SUBCUT DAILY aspirin 81 mg tablet,delayed release (DR/EC) 81 mg PO DAILY@0900 Jardiance 25 mg tablet 25 mg PO DAILY@09 Vitamin D3 1 cap PO DAILY celecoxib 200 mg Capsule 200 mg PO DAILY 30 Days Qty: 30 0RF acetaminophen 500 mg Tablet 1,000 mg PO Q8H 15 Days Qty: 90 0RF aspirin 325 mg Tablet,Delayed Release (Dr/Ec) 325 mg PO DAILY 30 Days Qty: 30 0RF Discharge Orders: Discharge ED (Routine); Ordered 12/17/24 Ordered By: Guillermo Jamison Referrals: Tammi Ames MD [Primary Care Provider] - Patient Instructions: Knee Pain (ED) Activity Restrictions/Additional Instructions: Continue taking your home pain medications. Continue keeping appointment with orthopedist next week. Please return with any Swelling, severe worsening of pain, redness, swelling, or other concerns you have. Print Language: Italian Coding Level of Care Code ED Rn Urology for Jens Boone
[2024-12-17 18:41] VITALS: BP 130/76; PULSE 90; O2SAT 97
== END 2024-12-17 19:04 | disposition home or self-care (01) ==
PROVIDERS: Emergency Provider Physician Assistant; PCP Internal Medicine
DX: M25.562 Pain in left knee (principal); G89.18 Other acute postprocedural pain; W19.XXXA Unspecified fall, initial encounter; Z79.84 Long term (current) use of oral hypoglycemic drugs; Z79.82 Long term (current) use of aspirin; J44.9 Chronic obstructive pulmonary disease, unspecified; E78.5 Hyperlipidemia, unspecified; I11.0 Hypertensive heart disease with heart failure; I50.30 Unspecified diastolic (congestive) heart failure
CPT/HCPCS: 73562; 99283

== ENCOUNTER → 2024-12-24 14:10 | Outpatient (BNVA) | payer MEDICARE, SELFPAY | PROVIDERS: PCP Internal Medicine; Visit Provider Nurse Practitioner | DX: Z96.652 Presence of left artificial knee joint (principal) | CPT/HCPCS: 99024 ==

== ENCOUNTER → 2025-01-30 11:09 | Outpatient (BNVA) | payer MEDICARE, SELFPAY | PROVIDERS: PCP Internal Medicine; Visit Provider Nurse Practitioner | DX: Z98.890 Other specified postprocedural states (principal); Z96.652 Presence of left artificial knee joint | CPT/HCPCS: 73560; 73565; 99024 ==

== ENCOUNTER → 2025-02-03 07:37 | Outpatient (BNVA) | payer MEDICARE, SELFPAY | PROVIDERS: PCP Internal Medicine; Visit Provider Podiatrist Foot & Ankle Surgery | DX: I73.9 Peripheral vascular disease, unspecified (principal); I10 Essential (primary) hypertension; E11.69 Type 2 diabetes mellitus with other specified complication; Z79.84 Long term (current) use of oral hypoglycemic drugs; Z79.4 Long term (current) use of insulin | CPT/HCPCS: 99214 ==

== ENCOUNTER 2025-02-19 14:23 | Outpatient (CLI) | payer MEDICARE, SELFPAY ==
--- NOTE | 2025-02-19 14:30 | CTR_ITS ---
PROCEDURE INFORMATION: Exam: CTA Abdominal Aorta and Bilateral Lower Extremities (Run-off) With Contrast Exam date and time: 02/19/2025 3:32 PM Age: 64 years old Clinical indication: Condition or disease; Prior surgery; Surgery date: 6+ months; Surgery type: Left knee; Pad, bilateral leg pains TECHNIQUE: Imaging protocol: Computed tomographic angiography of the of the abdominal aorta, pelvis and bilateral lower extremities with contrast. 3D rendering (Not supervised by radiologist): MIP and/or 3D reconstructed images were created by the technologist. Radiation optimization: All CT scans at this facility use at least one of these dose optimization techniques: automated exposure control; mA and/or kV adjustment per patient size (includes targeted exams where dose is matched to clinical indication); or iterative reconstruction. Contrast material: OMNI 350; Contrast volume: 125 ml; Contrast route: INTRAVENOUS (IV); COMPARISON: CT angio abd aorta runof 43481 10/21/2024 8:40 AM RADIATION DOSE METRICS: Total DLP (mGy-cm): 1545.03 FINDINGS: Aorta: Stable appearance of the aorta with large amount of atherosclerotic plaque and multiple ulcerations. No dissection or aneurysm. Celiac trunk and mesenteric arteries: Left gastric artery arises from abdominal aorta, normal variant. Greater than 70% stenosis of the left gastric artery, otherwise celiac axis within normal limits. Superior mesenteric artery is patent. 70% or greater stenosis at the origin of the inferior mesenteric artery. Renal arteries: At least 70% stenosis within right renal artery. Left renal artery remains patent. Right iliac arteries: No occlusion or significant stenosis. Right femoral/popliteal arteries: No occlusion or significant stenosis. Right infrapopliteal arteries: No occlusion or significant stenosis. Left iliac arteries: At least 70% stenosis within left internal iliac artery. Left femoral/popliteal arteries: At least 70% stenosis within left common femoral artery. At least 70% stenosis proximal left deep femoral artery. Left superficial femoral and popliteal arteries patent. Left infrapopliteal arteries: No occlusion or significant stenosis. Liver: No mass. Gallbladder and biliary ducts: Unremarkable. No calcified stones. No ductal dilation. Pancreas: Unremarkable. No mass. No ductal dilation. Spleen: Normal. No splenomegaly. Adrenal glands: Normal. No mass. Kidneys and ureters: Normal. No mass. Stomach and bowel: Unremarkable. No obstruction. No mucosal thickening. Appendix: No evidence of appendicitis. Urinary bladder: Unremarkable. No mass. Reproductive: Unremarkable as visualized. Intraperitoneal space: Unremarkable. No free air. No significant fluid collection. Lymph nodes: No lymphadenopathy. Bones/joints: Changes of prior left knee arthroplasty with diffuse edema and moderate joint effusion. Soft tissues: Unremarkable. CT/CT angio abd aorta runof 15375 IMPRESSION: 1. Multiple areas of severe hemodynamically significant stenosis within abdomen pelvis and left lower extremity, as described above; not significantly changed in comparison to prior study. 2. Three-vessel runoff to bilateral lower extremities. 3. Changes of left knee replacement with diffuse edema and moderate knee joint effusion.
[2025-02-19 15:19] LABS: Blood Urea Nitrogen 13 mg/dL (8-23); Glomerular Filtration Rate 61.3 mL/min (90-130)
[2025-02-19] MEDS: iohexol 350 mg/mL 500 mL Btl (per mL) IV (16:15)
== END 2025-02-19 14:24 | disposition home or self-care (01) ==
LOC: RAD 14:25
PROVIDERS: PCP Internal Medicine; Visit Provider Podiatrist Foot & Ankle Surgery
DX: I10 Essential (primary) hypertension (principal); I70.0 Atherosclerosis of aorta; I70.8 Atherosclerosis of other arteries; K55.1 Chronic vascular disorders of intestine; I70.1 Atherosclerosis of renal artery; I70.202 Unspecified atherosclerosis of native arteries of extremities, left leg; Z98.890 Other specified postprocedural states; R60.0 Localized edema; M25.462 Effusion, left knee
CPT/HCPCS: 75635; 82565; 84520

== ENCOUNTER → 2025-02-20 10:51 | Outpatient (BNVA) | payer MEDICARE, SELFPAY | PROVIDERS: PCP Internal Medicine; Visit Provider Specialist | DX: M17.11 Unilateral primary osteoarthritis, right knee (principal) | CPT/HCPCS: 20610; J1100; J2795; J3301; J9999 ==

== ENCOUNTER → 2025-02-24 12:46 | Outpatient (BNVA) | payer MEDICARE, SELFPAY | PROVIDERS: PCP Internal Medicine; Visit Provider Podiatrist Foot & Ankle Surgery | DX: I73.9 Peripheral vascular disease, unspecified (principal); E11.8 Type 2 diabetes mellitus with unspecified complications; L85.1 Acquired keratosis [keratoderma] palmaris et plantaris; Z79.4 Long term (current) use of insulin; Z79.84 Long term (current) use of oral hypoglycemic drugs | CPT/HCPCS: 99213 ==

== ENCOUNTER → 2025-02-27 10:16 | Outpatient (BNVA) | payer MEDICARE, SELFPAY | PROVIDERS: PCP Internal Medicine; Visit Provider Nurse Practitioner | DX: Z96.652 Presence of left artificial knee joint (principal); Z98.890 Other specified postprocedural states | CPT/HCPCS: 73560; 73565; 99024 ==

== ENCOUNTER → 2025-03-05 12:46 | Outpatient (BNVA) | payer MEDICARE, SELFPAY | PROVIDERS: PCP Internal Medicine; Visit Provider Internal Medicine | DX: E11.52 Type 2 diabetes mellitus with diabetic peripheral angiopathy with gangrene (principal); I96 Gangrene, not elsewhere classified; I11.0 Hypertensive heart disease with heart failure; I50.32 Chronic diastolic (congestive) heart failure; Z79.84 Long term (current) use of oral hypoglycemic drugs; Z72.0 Tobacco use | CPT/HCPCS: 99214 ==

== ENCOUNTER 2025-03-19 08:46 | Outpatient (CLI) | payer MEDICARE, SELFPAY ==
[2025-03-19] VITALS (23 sets, daily range): BP systolic 126–167; BP diastolic 74–111; PULSE 62–76; RESP 12–16; TEMP 36.9; O2SAT 94–97; BMI 28.4
--- NOTE | 2025-03-19 09:00 | XACV_ITS ---
Ht: 165 cm Wt: 78 kg BSA: 1.91 m2 Any Known Allergies: Other Gender: Male : 1960 Exam Type: Invasive Peripheral Vascular Procedure(s): Procedure Description: Peripheral Cath Diagnostic Procedure Procedure Description: Abdominal aortic angiography Procedure Description: Lower extremities' angiography Exam Priority: Routine Abdominal Diagnostic Findings Distal abdominal aorta: Patent. Lower Extremity Diagnostic Findings INDICATION: Non-healing wound of right lower extremity/ Claudication of left lower ext. Peripheral artery disease. Right lower extremity: Right common iliac artery is patent. Right external iliac artery is patent. Right internal iliac artery is patent. Right common femoral artery is patent. Right profunda artery is patent. Right SFA is patent. Below the knee patient has three-vessel runoff with sluggish flow. Left lower extremity findings: Left common iliac artery is patent. Left external iliac artery is patent. Left common femoral artery has distal 60 to 70% stenosis. Left profunda artery is patent. Left SFA is patent. Left popliteal artery is patent. Below the knee patient has three-vessel runoff to the foot. Conclusions Patent vessels in right lower extremity. Moderate to severe stenosis of left common femoral artery. However has claudication symptoms of left leg which will be treated medically at this time. Recommendations Aggressive medical therapy. Outpatient cardiology follow up in 2 weeks. Hemodynamic Data Phase:Rest AO : 159.0 / 69.0 ( 104.0 ) @ 11:22:00 AM 147.0 / 80.0 ( 110.0 ) @ 11:32:00 AM 167.0 / 69.0 ( 107.0 ) @ 11:41:00 AM Access Site Site: Left Femoral artery Sheath Size: 6 Fr Hemost... Method: Suture Hemost... Success: Successful Procedure Details Findings Procedure Consent Obtained. Pre-Procedure Time Out. Identified patient by full name and date of as verbalized by the patient/guarantor. Does the consent match the physician's order: Yes. Accurate & Complete Informed Consent: Yes. Inpatient/Outpatient History & Physical on Chart: Yes. If H&P is completed, is and addenduem needed: No; If yes, is the addendum complete: N/A. Visualize and Verify Site with Patient/Guarantor: N/A. Relevant Radiology Images available: Yes. Pre-op teaching completed and patient verbalized understanding. The risks, benefits, and alternatives of sedation and/or procedure were discussed by physician. The patient agrees to continue. Procedure started. PERRLA. Strong, equal hand medication administration professional bilaterally. Lungs clear x 5 lobes. IV Site on Arrival: 20 gauge in the right anticubital. IV Fluids: 0.9% NaCl at KVO. 0 mL infused prior to medical lab tech instructor. Pre Procedural Pulses: bilateral dorsalis pedis was 2+. Pre Procedural Pulses: bilateral posterior tibial was 1+. Pre Procedural Pulses: bilateral radial was 3+. Oxygen started at 2liters/min via nasal canula. bilateral groins was prepped with chloroprep then draped in the usual sterile fashion. Baseline sample Acquired. HR: 79 BPM. Physician arrived. Physician scrubbed in. Immediate Pre-Procedure Time Out. Correct Patient: Yes; Correct Procedure: Yes; Correct Site: Yes; Correct Patient Position: Yes; Correct Supplies: Yes; Dried Flammable Prep: Yes; Blood Products Available: N/A;. Lidocaine 1% infiltrated to the left groin. Arterial access obtained with micropuncture set. A 5FrFr UF catheter in over wire. Abdominal aortogram with runoff performed in AP @ 10 mL/sec for a total of 30 mL. Glidewire inserted through the catheter. Wire out. DSA performed of the right lower leg. Right external iliac selected and arteriogram with runoff performed @ 10 mL/sec for a total of 30 mL. Glidewire inserted. Catheter out OTW. Seeker inserted OTW. Contrast hand injected through the seeker catheter. Seeker pulled back to the distal SFA. Contrast hand injected through the catheter. Glidewire inserted. Catheter removed OTW. Sheath injected in Left common femoral artery and runoff performed. A Left femoral angiogram was performed to determine safe placement of closure device. A Suture was successful obtaining hemostatsis at the Left Femoral artery insertion site. Vital chart was stopped. Sheath(s) sutured into position with 2-0 silk and sterile 4x4's and Op-site applied over the site. No oozing or signs and symptoms of hematoma noted. Arterial sheath flushed and connected to tranducer and pressure bag with heparinized saline. Post Procedure: Pulses reassessed and unchanged. PERRLA. Strong, equal hand medication administration professional bilaterally. No VTE prophylaxis required. Medication's Wasted: Other = Fentanyl 25mcg Versed 1 mg. Medication's Wasted: Lidocaine 1% = 10 mL. Total IV fluids: 50 mL. Post-op diagnosis: PAD. Complications: None. Estimated blood loss: 5mL-10mL. Responsiveness - Normal response to verbal stimuli; alert and oriented, PERRLA. Airway - Unaffected, no intervention required; spontaneous ventilation. Circulation: W/N/L, pulses unchanged. Nausea/Vomiting: No. Procedure completed. Patient transferred by stretcher to CPRU. Procedure Medications Start: 10:13 AM Stop: 10:13 AM Medication: Versed Amount: 1 mg Route: I.V. Start: 10:13 AM Stop: 10:13 AM Medication: Fentanyl Amount: 50 mcg Route: I.V. Start: 10:17 AM Stop: 10:17 AM Medication: Versed Amount: 1 mg Route: I.V. Start: 10:35 AM Stop: 10:35 AM Medication: Versed 1 mg and Fentanyl 25 mcg Amount: 1 Route: I.V. I, the attending physician, have reviewed and verified all procedure medications. Yes, all medications given per verbal order History/Risk Factors Hypertension: Yes Dyslipidemia: Yes Peripheral Arterial Disease (PAD): Yes Obesity: No Renal Disease: No Tobacco Use: Current/Recent(w/in 1 year) Prior Interventions PCI: No CABG: No Valve Surgery: No Report Signatures Finalized by Ted Nath MD on 04/04/2025 10:50 AM
[2025-03-19] MEDS: diphenhydrAMINE 50 mg Capsule PO (09:20)
[2025-03-19 09:25] LABS: Basophils # 0.1 10^3/uL (0.0-0.1); Basophils % 0.4 %; Eosinophils # 0.3 10^3/uL (0.0-0.8); Eosinophils % 2.9 %; Hematocrit 43.5 % (37-53); Lymphocytes # 5.3 10^3/uL (0.8-4.8); Lymphocytes % 46.5 %; Mean Corpuscular HGB Conc 31.7 g/dL (30-55); Mean Corpuscular Hemoglobin 28.4 pg (27-33); Mean Corpuscular Volume 89.5 fl (82-101); Mean Platelet Volume 10.5 fL (7.4-10.4); Monocytes # 0.7 10^3/uL (0.2-0.9); Monocytes % 6.4 %; Neutrophils # 4.92 10^3/uL (1.8-7.7); Neutrophils % 43.4 %; Nucleated Red Blood Cells % 0 %; Platelet Count 195 10^3/cmm (157-399); Red Blood Count 4.86 10^6/uL (3.85-5.65); Red Cell Distribution Width 18.6 % (12.1-15.1); White Blood Count 11.37 10^3/uL (3.29-11.43)
[2025-03-19 09:39] LABS: Anion Gap 16.5 (5-19); Blood Urea Nitrogen 9 mg/dL (8-23); Calcium 8.7 mg/dL (8.5-10.5); Carbon Dioxide 23 mmol/L (22-29); Chloride 98 mmol/L (98-107); Glomerular Filtration Rate 61.3 mL/min (90-130); Glucose 116 mg/dL (65-115); Osmolality Calculated 278 mOsm/kg (285-295); Potassium 3.5 mmol/L (3.5-5.1); Sodium 134 mmol/L (136-145)
--- NOTE | 2025-03-19 10:12 | W.PM.OPSUD ---
Surgery/Procedure H&P Update DATE OF PROCEDURE: March 19, 2025 DATE H&P PERFORMED: 03/05/25 H&P UPDATE INFORMATION: I have reviewed H&P completed within last 30 days, I have examined patient prior to procedure and No changes to prior documentation PREOP DIAGNOSIS: Non-healing wound of right lower extremity/ Claudication of left lower ext PRIMARY INDICATION FOR PROCEDURE: Non-healing wound of right lower extremity/ Claudication of left lower ext. Peripheral artery disease PLANNED PROCEDURE: Operation Date: 03/19/25 10:00 Proposed Procedures p Peripheral Diagnostic - Peripheral Angiogram Bilateral(Bilateral) - Ted Nath M.D Possible intervention PATIENT REASSESSED PRIOR TO SEDATION, WITH NO CHANGE NOTED: Yes PHYSICAL EXAM: alert, oriented x 3, clear to auscultation bilaterally and regular rate & rhythm AIRWAY EVAL/ANESTHESIA PLAN: normal airway, ASA III, Local Anesthesia, Risks, benefits & alternatives of sedation and/or procedure discussed and Patient agrees to continue as planned ADDITIONAL INFORMATION: Moderate sedation
--- NOTE | 2025-03-19 11:00 | PC.NURSE ---
Sheath to left groin was pulled by Yasmani Nicole RN, BIOLOGY FACULTY MEMBER
--- NOTE | 2025-03-19 11:00 | PC.NURSE ---
Received the patient back from the senior cytogenetics laboratory director via bed s/p Diagnostic peripheral angiogram. Patient drowsy. Awakens to verbal stimuli. A & 0 x 3. case monitor placed and vital signs obtained. 6 Armenian sheath sutured in the left groin to pressure bag. To be pulled by [facility] staff BILLY. No bleeding or hematoma noted. Dressing D/I. No other assessment changes noted from pre cath assessment. Family at bedside. No concerns voiced at this time. Plan for CSU transfer once bed becomes available.
--- NOTE | 2025-03-19 11:25 | PC.NURSE ---
Left groin soft with no bleeding or hematoma noted after sheath pull. Opsite D/I. Pulses to left DP and PT unchanged from previous assessment.
--- NOTE | 2025-03-19 12:27 | PC.NURSE ---
Luna cath placed by Acosta Hauser RN, CIRCULAR CLERK without difficultly. Clear, yellow UOP returned. Patient tolerated well.
[2025-03-19] MEDS: sodium chloride 0.9% 1,000 ML 100 ML IV (12:30)
--- NOTE | 2025-03-19 13:25 | PC.NURSE ---
Report called to [facility]. Patient then transferred to room 107 via bed. The patient notified his spouse, Binta, by cell phone and notified of the transfer.
[2025-03-19] MEDS: pregabalin 75 mg Capsule PO (15:34)
[2025-03-19] MEDS: baclofen 10 mg Tablet 20 MG PO (15:34)
--- NOTE | 2025-03-19 16:47 | PM.SDS ---
Short Stay Summary Providers Date of Admit/Discharge: 03/19/25 Attending Provider: Ted Nath M.D Primary Care Provider: Tammi Ames MD Chief Complaint: I73.9 HPI History of Present Illness Troy Goode is a 64 year old male with past medical history of claudication, PAD, CAD history of NSTEMI, heart failure, iron deficiency anemia, dyslipidemia, COPD, type 2 diabetes, hypertension. He underwent CTA of the aorta with runoff on 02/19/2025 showing multiple areas of hemodynamically significant stenosis in the left lower extremity, specifically left iliac, left femoral/popliteal. He did have three-vessel runoff bilateral lower extremities. Review of Systems Const: Denies: fever(s), chills, change in weight, fatigue or diaphoresis Eyes: Denies: change in vision ENMT: Denies: epistaxis Card: Reports: leg pain with exertion; Denies: chest pain, palpitations, irregular heart rhythm, edema, syncope, pre-syncope, dyspnea on exertion or orthopnea Resp: Denies: dyspnea, productive cough or wheezing GI: Denies: nausea, vomiting, hematemesis, hematochezia or melena : Denies: hematuria Musc: Denies: extremity swelling Sudeep/Lymph: Denies: easy bruising or easy bleeding Home Meds/Allergies Home Medications and Allergies Home Medications ?Medication ?Instructions ?Recorded ?Confirmed ?Type aspirin 81 mg tablet,delayed 81 mg PO DAILY@0900 02/16/21 03/19/25 History release Vitamin D3 1 cap PO DAILY 02/22/21 03/19/25 History empagliflozin 25 mg tablet 25 mg PO DAILY@09 02/22/21 03/19/25 History (Jardiance) fluticasone propionate 50 1 spray intranasal DAILY PRN Runny 07/19/21 03/19/25 History mcg/actuation nasal Nose spray,suspension (Allergy Relief (fluticasone)) Lantus U-100 Insulin 40 units SUBCUT DAILY 03/09/22 03/19/25 History baclofen 20 mg tablet 20 mg PO TID 06/13/22 03/19/25 History duloxetine 60 mg capsule,delayed 60 mg PO DAILY pain 06/13/22 03/19/25 History release Vitamin B-12 1 cap PO DAILY 11/01/22 03/05/25 History coenzyme Q10 100 mg chewable tablet 100 mg PO DAILY 07/19/23 03/19/25 History lancets (Accu-Chek Softclix #100 ea 07/01/24 02/27/25 History Lancets) metformin 500 mg tablet,extended 500 mg PO DAILY 07/01/24 03/05/25 History release 24 hr pen needle, diabetic 31 gauge x #1,200 ea 07/01/24 02/27/25 History 5/16 (BD Ultra-Fine Short Pen Needle) semaglutide 0.25 mg or 0.5 mg (2 0.25 mg SUBCUT ONCE 07/01/24 03/19/25 History mg/1.5 mL) subcutaneous pen injector (Ozempic) sucralfate 100 mg/mL oral 100 mg PO PRN PRN Acid Reflux 07/01/24 03/19/25 History suspension lamotrigine 25 mg tablet 25 mg PO BID 08/04/24 03/19/25 History pregabalin 75 mg capsule 75 mg PO TID 08/04/24 03/19/25 History folic acid 1 mg tablet 1 mg PO DAILY 12/24/24 03/19/25 History ferrous sulfate 325 mg (65 mg 325 mg PO BID 01/30/25 03/19/25 History iron) tablet (FeroSul) tramadol 50 mg tablet 50 mg PO BID PRN Pain 01/30/25 03/19/25 History Potassium PO 03/05/25 03/05/25 History Allergies Allergy/AdvReac Type Severity Reaction Status Date / Time amitriptyline Allergy ALGY-Conges Verified 03/19/25 09:40 sonia temazepam Allergy ALGY-Conges Verified 03/19/25 09:40 sonia codeine AdvReac ADR-Gastrointestinal Verified 03/19/25 09:40 Upset oxycodone AdvReac ADR-Gastrointestinal Verified 03/19/25 09:40 Upset PFSH Acute PFSH: Medical History Primary osteoarthritis of knees, bilateral Degenerative joint disease of spine Smoker unmotivated to quit PAD (peripheral artery disease) NSTEMI (non-ST elevated myocardial infarction) Chronic neck and back pain Heart failure with preserved ejection fraction Echo 12/04/20 EF 55% Allergic rhinosinusitis Neurogenic bladder Iron deficiency anemia Vitamin D deficiency Dyslipidemia COPD, moderate Controlled type 2 diabetes mellitus, without long-term current use of insulin Essential (primary) hypertension Hypothyroidism, unspecified Gastritis Surgical History H/O oral surgery Teeth extracted H/O circumcision H/O colonoscopy 11/20/2016 H/O esophagogastroduodenoscopy 2015 History of back surgery Lumbar laminectomy x 2 Family History Father Diabetes Stroke Bleeding disorder Mother Diabetes Cancer SKIN Other CAD (coronary artery disease) Lung disease Denies family history of Anesthesia complication Social History Smoking and tobacco/nicotine status: current some day tobacco/nicotine user cigarettes Packs smoked per day: 0.25 Years cigarettes smoked: 45 [ Other cigarette details: started at age 10 years, smoked 1ppd until 51 years] Quit status (tobacco/nicotine): has tried quititng Alcohol intake: never Substance/Drug Use: never Lives independently: Yes Household members: spouse Marital status: Current occupational status: disabled Do you think of yourself as: Straight/Heterosexual Current gender identity: Male Vitals/I&O/Wt Last Vital Signs Temp 98.4 F 03/19/25 10:03 Pulse 72 03/19/25 13:00 Resp 14 03/19/25 13:00 BP 148/83 03/19/25 13:00 Pulse Ox 95 03/19/25 13:00 O2 Del Method Room Air 03/19/25 13:00 03/19/25 03/19/25 03/19/25 06:59 14:59 22:59 Intake Total 600 / 600 Output Total 1000 / 2100 1100 / 2100 Balance -400 / -1500 -1100 / -1500 Weight last 48 hrs Weight 171 lb Physical Exam Const: COMMON NORMALS: no acute distress and patient oriented x3 GENERAL APPEARANCE: cooperative ORIENTATION/CONSCIOUSNESS: Yes awake, Yes oriented to person, Yes oriented to place and Yes oriented to time Chest: COMMONS NORMALS: normal inspection of the chest and normal palpation of entire chest wall CHEST: Yes Symmetrical chest wall rise Resp: COMMON NORMALS: normal respiratory effort, No retractions, No use of accessory muscles and clear to auscultation bilaterally AUSCULTATION: clear to auscultation bilaterally Cardio: COMMON NORMALS: regular rate, regular rhythm, S1 normal heart sound present, S2 normal heart sound present, No gallops present (Cardio), No clicks present (Cardio), No murmurs present (Cardio) and No rub (Cardio) RATE: regular rate RHYTHM: regular rhythm HEART SOUNDS: S1 normal heart sound present and S2 normal heart sound present PERIPHERAL PULSES: radial pulses present positive right 2+ and femoral pulses present positive right 2+ Neuro: COMMON NORMALS: patient oriented x3 and moves all extremities SENSORIUM/ORIENTATION: Yes oriented to person, Yes oriented to place and Yes oriented to time Skin: WOUNDS: Yes surgical site (no hematoma palpable) Details: no odor Hospital Course Hospital Course He was brought for peripheral angiogram today, was diagnostic only. He has stenosis in the left common femoral, however vessel is patent. He has good three-vessel runoff to the feet bilaterally. No complications with left femoral cath site. Will plan to discharge home today, continue current medical management. Follow-up with cardiology clinic in 7 to 10 days. SSS Data Data Completed and Pending: Pending at discharge Category Date Time Status LIFE SKILLS COACH request for service Routin e Exams 03/19/25 09:00 Taken Basic Metabolic P catherine AM LABS Lab 03/20/25 04:00 Ordered Complete Blood Co unt w/Auto AM LABS Lab 03/20/25 04:00 Ordered Discharge Plan Discharge Patient Disposition: Home Prescriptions: Continued furosemide [Lasix] 20 mg tablet 20 mg PO DAILY PRN (Reason: Edema) Qty: 90 3RF fluticasone propionate [Allergy Relief (fluticasone)] 50 mcg/actuation spray,suspension 1 spray intranasal DAILY PRN (Reason: Runny Nose) Rx Instructions: administer into each nostril azelastine 137 mcg (0.1 %) aerosol,spray 2 spray INTRANASAL BID 30 Days Qty: 30 6RF Rx Instructions: administer into each nostril (DME) Diabetic shoes with 3 pairs of inserts See Rx Instructions .Route .MEDSUPPLY Qty: 1 0RF Rx Instructions: As directed Ozempic 0.25 mg or 0.5 mg(2 mg/1.5 mL) pen injector 0.25 mg SUBCUT ONCE celecoxib [Celebrex] 100 mg capsule 100 mg PO BID PRN (Reason: pain) Qty: 180 0RF Rx Instructions: Hold medications if any stomach upset, increased heartburn or belly pain occurs. diclofenac sodium 1 % gel 4 g topical QID Qty: 100 0RF Rx Instructions: apply to single knee, ankle, foot; for foot includes sole/toes/top of foot baclofen 20 mg tablet 20 mg PO TID duloxetine 60 mg capsule,delayed release(DR/EC) 60 mg PO DAILY Vitamin B-12 1 cap PO DAILY Trelegy Ellipta 100-62.5-25 mcg blister with device 1 inh inhalation DAILY Qty: 60 3RF coenzyme Q10 100 mg tablet,chewable 100 mg PO DAILY lamotrigine 25 mg tablet 25 mg PO BID metformin 500 mg tablet extended release 24 hr 500 mg PO DAILY sucralfate 100 mg/mL suspension 100 mg PO PRN PRN (Reason: Acid Reflux) ([facility] [place]) lancets [Accu-Chek Softclix Lancets] Misc See Rx Instructions .ROUTE .MEDSUPPLY Qty: 100 Rx Instructions: As directed ([facility] [place]) pen needle, diabetic [BD Ultra-Fine Short Pen Needle] 31 gauge x 5/16 needle See Rx Instructions .ROUTE .MEDSUPPLY Qty: 1200 Rx Instructions: As directed pregabalin 75 mg capsule 75 mg PO TID nitroglycerin 2 % ointment 0.5 inch transdermal BID Qty: 30 0RF Potassium PO folic acid 1 mg tablet 1 mg PO DAILY tramadol 50 mg tablet 50 mg PO BID PRN (Reason: Pain) ferrous sulfate [FeroSul] 325 mg (65 mg iron) tablet 325 mg PO BID ([facility] [place]) diabetic shoes with 3 inserts See Rx Instructions .Route .MEDSUPPLY Qty: 1 0RF Rx Instructions: As directed to the shoe [place] ([facility] [place]) Diabetic Shoes 3 x inserts See Rx Instructions .Route .MEDSUPPLY Qty: 1 0RF Rx Instructions: As directed by [employer] [place] ([facility] [place]) pen needle, diabetic [Comfort EZ Pen [place]] 29 gauge x 1/2 needle See Rx Instructions .ROUTE .MEDSUPPLY Qty: 50 2RF Rx Instructions: As directed for Novalog and Levemir albuterol sulfate [ProAir HFA] 90 mcg/actuation HFA aerosol inhaler 2 puff INHALATION Q6H PRN (Reason: Shortness Of Breath) Qty: 8.5 0RF (DME) blood-glucose meter [OneTouch Ultra2 Meter] Misc See Rx Instructions .ROUTE .MEDSUPPLY 5RF Rx Instructions: FOUR DAILY (DME) lancets [OneTouch Delica Lancets] 30 gauge misc See Rx Instructions .Route Qty: 100 0RF Rx Instructions: As directed (DME) OneTouch Ultra Test Strip See Rx Instructions .ROUTE .MEDSUPPLY Qty: 300 3RF Rx Instructions: use 3 times daily in one touch meter 90 day supply tamsulosin 0.4 mg capsule 0.4 mg PO BID Qty: 60 12RF mupirocin 2 % ointment 1 applic topical BID Qty: 22 1RF Rx Instructions: Apply to affected area(s) until healed atorvastatin 40 mg tablet 40 mg PO BEDTIME@2100 Qty: 90 3RF Lantus U-100 Insulin 44 units pen injector 40 units SUBCUT DAILY aspirin 81 mg tablet,delayed release (DR/EC) 81 mg PO DAILY@0900 Jardiance 25 mg tablet 25 mg PO DAILY@09 Vitamin D3 1 cap PO DAILY Discharge Orders: Discharge Order (Routine); Ordered 03/19/25 Ordered By: Piedad Lanier Referrals: Tammi Ames MD [Primary Care Provider, Internal Medicine] - 04/01/25 1:00 pm Referral Note: Pleaae keep your appointment as scheduled. Piedad Lanier FNP [Nurse Practitioner, Cardiology] - 03/25/25 4:00 pm Diet: Advance as tolerated Activity: Increase activity as tolerated Patient Instructions: Chronic Wound Care (DC), Post Angiogram Home Care Instructions Activity Restrictions/Additional Instructions: No lifting over 10 pounds for the next 4 days. Print Language: Yakut Attestations Medical Necessity Statement*: Discharge home today Time Spent in Patient Care*: less than 30 min Quality Metrics Clinical Quality Measures: [ No reported AMI, CVA or VTE this stay] Coding Level of Care Code Acute Code for Chg Fwd
--- NOTE | 2025-03-19 17:58 | PC.NURSE ---
discharge to home discharge packet provided. post angiogram wound home care instructions discuss with pt and at bedside.
== END 2025-03-19 17:20 | disposition home or self-care (01) ==
LOC: CCL 08:52 → CSU 16:01
PROVIDERS: PCP Internal Medicine; Visit Provider Internal Medicine
DX: I70.212 Atherosclerosis of native arteries of extremities with intermittent claudication, left leg (principal); S81.801A Unspecified open wound, right lower leg, initial encounter; X58.XXXA Exposure to other specified factors, initial encounter; I77.1 Stricture of artery; E78.5 Hyperlipidemia, unspecified; J44.9 Chronic obstructive pulmonary disease, unspecified; E11.9 Type 2 diabetes mellitus without complications; D53.9 Nutritional anemia, unspecified; Z79.82 Long term (current) use of aspirin; Z79.84 Long term (current) use of oral hypoglycemic drugs; I25.2 Old myocardial infarction; E03.9 Hypothyroidism, unspecified; F17.210 Nicotine dependence, cigarettes, uncomplicated; I11.0 Hypertensive heart disease with heart failure; I50.9 Heart failure, unspecified; I25.10 Atherosclerotic heart disease of native coronary artery without angina pectoris
CPT/HCPCS: 36415; 75625; 75716; 80048; 85025; 99152; 99153; C1769; C1887; C1894; J1644; J2250; J3010; J7030; J9999; Q0163; Q9967

== ENCOUNTER → 2025-03-25 15:53 | Outpatient (BNVA) | payer MEDICARE, SELFPAY | PROVIDERS: PCP Internal Medicine; Visit Provider Nurse Practitioner Family | DX: I73.89 Other specified peripheral vascular diseases (principal); Z09 Encounter for follow-up examination after completed treatment for conditions other than malignant neoplasm; I10 Essential (primary) hypertension; E11.9 Type 2 diabetes mellitus without complications; Z79.85 Long-term (current) use of injectable non-insulin antidiabetic drugs; Z79.84 Long term (current) use of oral hypoglycemic drugs; J44.9 Chronic obstructive pulmonary disease, unspecified; E78.5 Hyperlipidemia, unspecified; Z79.82 Long term (current) use of aspirin; F17.210 Nicotine dependence, cigarettes, uncomplicated; I25.2 Old myocardial infarction | CPT/HCPCS: 99214 ==

== ENCOUNTER → 2025-04-07 13:24 | Outpatient (BNVA) | payer MEDICARE, SELFPAY | PROVIDERS: PCP Internal Medicine; Visit Provider Podiatrist Foot & Ankle Surgery | DX: E11.8 Type 2 diabetes mellitus with unspecified complications (principal); L60.3 Nail dystrophy; L84 Corns and callosities; I73.9 Peripheral vascular disease, unspecified; Z79.4 Long term (current) use of insulin; Z79.84 Long term (current) use of oral hypoglycemic drugs; E11.621 Type 2 diabetes mellitus with foot ulcer; L97.512 Non-pressure chronic ulcer of other part of right foot with fat layer exposed | CPT/HCPCS: 11056; 11721; 99213 ==

== ENCOUNTER → 2025-04-10 09:08 | Outpatient (BNVA) | payer MEDICARE, SELFPAY | PROVIDERS: PCP Internal Medicine; Visit Provider Nurse Practitioner | DX: Z96.652 Presence of left artificial knee joint (principal) | CPT/HCPCS: 73560; 73565; 99213 ==

== ENCOUNTER → 2025-04-20 15:01 | Outpatient (BNVA) | payer MEDICARE, SELFPAY | PROVIDERS: PCP Internal Medicine; Visit Provider Nurse Practitioner Family | DX: D22.4 Melanocytic nevi of scalp and neck (principal); L81.4 Other melanin hyperpigmentation; Z86.006 Personal history of melanoma in-situ; Z08 Encounter for follow-up examination after completed treatment for malignant neoplasm; Z87.2 Personal history of diseases of the skin and subcutaneous tissue; A63.0 Anogenital (venereal) warts; D48.5 Neoplasm of uncertain behavior of skin; L57.0 Actinic keratosis | CPT/HCPCS: 11104; 17000; 99213 ==

== ENCOUNTER → 2025-04-28 08:16 | Outpatient (BNVA) | payer MEDICARE, SELFPAY | PROVIDERS: PCP Internal Medicine; Visit Provider Podiatrist Foot & Ankle Surgery | DX: L08.9 Local infection of the skin and subcutaneous tissue, unspecified (principal); E11.8 Type 2 diabetes mellitus with unspecified complications; E11.9 Type 2 diabetes mellitus without complications; I73.9 Peripheral vascular disease, unspecified; Z79.4 Long term (current) use of insulin; Z79.84 Long term (current) use of oral hypoglycemic drugs | CPT/HCPCS: 99214 ==

== ENCOUNTER 2025-04-30 16:44 | Outpatient (CLI) | payer MEDICARE, SELFPAY ==
--- NOTE | 2025-04-30 16:48 | CT_ITS ---
WS: [id number] LDCT LUNG CANCER SCREENING HISTORY: HX OF SMOKING TECHNIQUE: Axial imaging performed from the apices to 1 cm below the costophrenic angles. Coronal and sagittal reformats are submitted with axial MIP series. All CT scans at [facility] use at least one of these dose optimization techniques: automated exposure control; mA and/or kV adjustment per patient size (includes targeted exams where dose is matched to clinical indication); or iterative reconstruction. DLP: 58.01 mGy.cm DIvol: Mean CTDIvol: 1.10 (mGy) COMPARISON: 09/25/2023 Diagnostic quality: Satisfactory Lungs: Mild hyperexpansion and centrilobular emphysema. Stable triangular 5 mm nodule along the RIGHT fissure is stable since at least 09/21/2022. There is a smaller RIGHT perifissural nodule measuring 3 mm which is also stable. No new mass identified. No pneumonia. No endobronchial lesions. Heart: Normal size heart with no pericardial effusion.. Scattered coronary artery calcifications. Other findings: Mild atherosclerosis aorta. No adenopathy. Small hiatal hernia. Splenic granulomata. No adrenal mass. Osteopenia with mild increase in thoracic kyphosis. Schmorl's nodes defects in the thoracic spine. CT/CT lung screening [id number] IMPRESSION: LUNG-RADS: 2-Benign Appearance or Behavior FOLLOW UP: 12 Month: Continue annual screening with LDCT OTHER FINDINGS (S MODIFIER): None.
== END 2025-04-30 16:45 | disposition home or self-care (01) ==
LOC: RAD 16:45
PROVIDERS: PCP Internal Medicine; Visit Provider Internal Medicine
DX: Z12.2 Encounter for screening for malignant neoplasm of respiratory organs (principal); Z87.891 Personal history of nicotine dependence; J43.2 Centrilobular emphysema; R91.8 Other nonspecific abnormal finding of lung field
CPT/HCPCS: 71271

== ENCOUNTER 2025-06-08 11:19 | Outpatient (CLI) | payer MEDICARE, SELFPAY ==
--- NOTE | 2025-06-08 11:30 | XRR_ITS ---
PROCEDURE INFORMATION: Exam: XR Right Foot Exam date and time: 06/08/2025 11:37 AM Age: 64 years old Clinical indication: Condition or disease; Other: Diabetic foot ulcer; November injury to foot, non healing ulcer on 1st digit TECHNIQUE: Imaging protocol: Radiologic exam of the right foot. Views: 3 or more views. COMPARISON: CT angio abd aorta runof [id number] 02/19/2025 3:32 PM FINDINGS: Bones/joints: There is erosive change involving the tuft of the 1st phalanx. Findings suspicious for osteomyelitis. No fracture or dislocation is appreciated. Joint spaces are relatively well preserved. Bony mineralization is normal. Soft tissues: There is an ulcer defect involving the distal aspect of the great toe. There is soft tissue swelling. No soft tissue air/gas is appreciated. XR/XR foot RT min 3V* [id number] IMPRESSION: 1. Ulcer defect with soft tissue swelling involving the great toe. 2. Findings suspicious for osteomyelitis involving the distal aspect of the great toe.
== END 2025-06-08 11:20 | disposition home or self-care (01) ==
PROVIDERS: PCP Internal Medicine; Visit Provider Internal Medicine
DX: E11.621 Type 2 diabetes mellitus with foot ulcer (principal); L97.518 Non-pressure chronic ulcer of other part of right foot with other specified severity
CPT/HCPCS: 73630

== ENCOUNTER → 2025-06-09 13:12 | Outpatient (BNVA) | payer MEDICARE, SELFPAY | PROVIDERS: PCP Internal Medicine; Visit Provider Podiatrist Foot & Ankle Surgery | DX: L08.9 Local infection of the skin and subcutaneous tissue, unspecified (principal); E11.8 Type 2 diabetes mellitus with unspecified complications; I73.9 Peripheral vascular disease, unspecified; E11.69 Type 2 diabetes mellitus with other specified complication; Z79.4 Long term (current) use of insulin; Z79.84 Long term (current) use of oral hypoglycemic drugs; Z79.85 Long-term (current) use of injectable non-insulin antidiabetic drugs | CPT/HCPCS: 99214 ==

== ENCOUNTER → 2025-06-12 09:29 | Outpatient (BNVA) | payer MEDICARE, SELFPAY | PROVIDERS: PCP Internal Medicine; Visit Provider Specialist | DX: M17.11 Unilateral primary osteoarthritis, right knee (principal) | CPT/HCPCS: 20610; J1100; J2795; J3301; J9999 ==

== ENCOUNTER 2025-06-15 06:19 | Day surgery (SDC) | payer MEDICARE, SELFPAY ==
--- NOTE | 2025-06-14 08:46 | ANES.PREANE2 ---
Pre-Anesthetic Assessment Height/Weight: Height 5 ft 5 in Operation Date: 06/15/25 07:00 Proposed Procedures p Partial hallux amputation right foot(Right) - Guillermo Hollins DPM Anesthetic Plan Other: Patient with a right hallux wound with known underlying osteomyelitis No prior issues with anesthesia N.p.o. since yesterday evening IDDM, preop BS Semaglutide last taken Wheelchair-bound? Negative stress test August 2024 EKG showing sinus tachycardia with incomplete RBBB and posterior fascicular block Plan for Medications/Allergies Home Medications ?Medication ?Instructions ?Recorded ?Confirmed ?Last Taken ?Type pen needle, diabetic 29 gauge x #50 ea 12/22/19 06/12/25 Unknown Rx 1/2 (Comfort EZ Pen Mellen) albuterol sulfate 90 mcg/actuation 2 puff inhalation Q6H PRN 01/16/20 06/12/25 09/13/21 20:00 Rx aerosol inhaler (ProAir HFA) Shortness Of Breath #8.5 grams aspirin 81 mg tablet,delayed 81 mg PO DAILY@0900 02/16/21 06/12/25 06/11/25 06:00 History release Vitamin D3 1 cap PO DAILY 02/22/21 06/12/25 06/11/25 History empagliflozin 25 mg tablet 25 mg PO DAILY@09 02/22/21 06/12/25 06/10/25 23:00 History (Jardiance) fluticasone propionate 50 1 spray intranasal DAILY PRN Runny 07/19/21 06/12/25 04/23/25 History mcg/actuation nasal Nose spray,suspension (Allergy Relief (fluticasone)) blood-glucose meter (OneTouch 08/26/21 06/12/25 Unknown Rx Ultra2 Meter) lancets 30 gauge (OneTouch Delica #100 ea 08/26/21 06/12/25 Unknown Rx Lancets) blood sugar diagnostic (OneTouch #300 ea 08/29/21 06/12/25 Unknown Rx Ultra Test strips) tamsulosin 0.4 mg capsule 0.4 mg PO BID #60 caps 09/30/21 06/12/25 06/11/25 Rx furosemide 20 mg tablet (Lasix) 20 mg PO DAILY PRN Edema #90 tabs 10/31/21 06/12/25 03/18/25 Rx azelastine 137 mcg (0.1 %) nasal 2 spray intranasal BID Runny Nose 01/17/22 06/12/25 05/14/25 Rx spray 30 days #30 mL Lantus U-100 Insulin 40 units SUBCUT DAILY 03/09/22 06/12/25 06/11/25 History baclofen 20 mg tablet 20 mg PO TID 06/13/22 06/12/25 06/11/25 08:00 History duloxetine 60 mg capsule,delayed 60 mg PO DAILY pain 06/13/22 06/12/25 06/11/25 History release mupirocin 2 % topical ointment 1 applic topical BID #22 grams 07/14/22 06/12/25 03/18/25 Rx Vitamin B-12 1 cap PO DAILY 11/01/22 06/12/25 06/11/25 History fluticasone fur. 100 mcg-umeclid 1 inh inhalation DAILY #60 ea 01/19/23 06/12/25 06/11/25 Rx 62.5 mcg-vilant 25 mcg inhalat.powder (Trelegy Ellipta) Diabetic shoes with 3 pairs of #1 ea 04/17/23 06/12/25 Unknown Rx inserts coenzyme Q10 100 mg chewable tablet 100 mg PO DAILY 07/19/23 06/12/25 06/11/25 History atorvastatin 40 mg tablet 40 mg PO BEDTIME@2100 #90 tabs 10/24/23 06/12/25 06/11/25 Rx lancets (Accu-Chek Softclix #100 ea 07/01/24 06/12/25 Unknown History Lancets) metformin 500 mg tablet,extended 500 mg PO DAILY 07/01/24 06/12/25 06/11/25 06:00 History release 24 hr pen needle, diabetic 31 gauge x #1,200 ea 07/01/24 06/12/25 Unknown History 5/16 (BD Ultra-Fine Short Pen Needle) semaglutide 0.25 mg or 0.5 mg (2 0.25 mg SUBCUT ONCE 07/01/24 06/12/25 06/08/25 History mg/1.5 mL) subcutaneous pen injector (Ozempic) sucralfate 100 mg/mL oral 100 mg PO PRN PRN Acid Reflux 07/01/24 06/12/25 06/11/25 History suspension lamotrigine 25 mg tablet 25 mg PO BID 08/04/24 06/12/25 06/11/25 08:00 History pregabalin 75 mg capsule 75 mg PO TID 08/04/24 06/12/25 06/11/25 07:00 History folic acid 1 mg tablet 1 mg PO DAILY 12/24/24 06/12/25 03/18/25 History ferrous sulfate 325 mg (65 mg 325 mg PO BID 01/30/25 06/12/25 03/18/25 History iron) tablet (FeroSul) tramadol 50 mg tablet 50 mg PO BID PRN Pain 01/30/25 06/12/25 06/11/25 08:00 History Diabetic Shoes 3 x inserts #1 ea 02/03/25 06/12/25 Unknown Rx diabetic shoes with 3 inserts #1 ea 02/03/25 06/12/25 Unknown Rx celecoxib 100 mg capsule (Celebrex) 100 mg PO BID PRN pain #180 caps 03/02/25 06/12/25 06/08/25 Rx diclofenac sodium 1 % topical gel 4 g topical QID #100 grams 03/02/25 06/12/25 03/18/25 Rx Potassium PO 03/05/25 06/12/25 03/18/25 History bupropion HCl 75 mg tablet 75 mg PO TID 04/28/25 06/12/25 06/11/25 06:00 History nitroglycerin 2 % transdermal See Rx Instructions .Route 05/18/25 06/12/25 06/09/25 Rx ointment (Nitro-Bid) .COMPLEX #30 grams Allergies Allergy/AdvReac Type Severity Reaction Status Date / Time amitriptyline Allergy ALGY-Conges Verified 06/12/25 07:02 sonia temazepam Allergy ALGY-Conges Verified 06/12/25 07:02 sonia codeine AdvReac ADR-Gastrointestinal Verified 06/12/25 07:02 Upset oxycodone AdvReac ADR-Gastrointestinal Verified 06/12/25 07:02 Upset PFSH Anesthesia Medical History Primary osteoarthritis of knees, bilateral Degenerative joint disease of spine Smoker unmotivated to quit PAD (peripheral artery disease) NSTEMI (non-ST elevated myocardial infarction) Chronic neck and back pain Heart failure with preserved ejection fraction Echo 12/04/20 EF 55% Allergic rhinosinusitis Neurogenic bladder Iron deficiency anemia Vitamin D deficiency Dyslipidemia COPD, moderate Controlled type 2 diabetes mellitus, without long-term current use of insulin Essential (primary) hypertension Hypothyroidism, unspecified Gastritis Surgical History H/O oral surgery Teeth extracted H/O circumcision H/O colonoscopy 11/20/2016 H/O esophagogastroduodenoscopy 2015 History of back surgery Lumbar laminectomy x 2 Family History Father Diabetes Stroke Bleeding disorder Mother Diabetes Cancer SKIN Other CAD (coronary artery disease) Lung disease Denies family history of Anesthesia complication Social History Smoking and tobacco/nicotine status: current every day tobacco/nicotine user cigarettes Packs smoked per day: 0.25 Years cigarettes smoked: 45 [ Other cigarette details: started at age 10 years, smoked 1ppd until 51 years] Quit status (tobacco/nicotine): has tried quititng Alcohol intake: never Substance/Drug Use: never Lives independently: Yes Household members: spouse Marital status: Current occupational status: disabled Do you think of yourself as: Straight/Heterosexual Current gender identity: Male Data Anesthesia Cardiac Studies: Echocardiogram Ultrasound 12/04/20 Sestamibi Stress Test (Cardiology) 08/22/24 Cardiac Event Monitor 04/29/21
[2025-06-15] VITALS (10 sets, daily range): BP systolic 150–168; BP diastolic 83–97; PULSE 65–79; RESP 15–17; TEMP 36.3–36.6; O2SAT 96–98; BMI 27.9
--- NOTE | 2025-06-15 06:51 | W.PM.OPSUD ---
Surgery/Procedure H&P Update DATE OF PROCEDURE: June 15, 2025 DATE H&P PERFORMED: 06/09/25 H&P UPDATE INFORMATION: I have reviewed H&P completed within last 30 days, I have examined patient prior to procedure, No changes to prior documentation, H&P is in [facility] EMR on date indicated and Risks and benefits of the procedure reviewed PREOP DIAGNOSIS: Right hallux amputation PLANNED PROCEDURE: Operation Date: 06/15/25 07:00 Proposed Procedures p Partial hallux amputation right foot(Right) - Guillermo Hollins DPM
[2025-06-15] MEDS: ceFAZolin 2,000 mg SDV 2000 MG IVP (06:57)
[2025-06-15] MEDS: BUPivacaine 0.5% INJ 30 mL 10 ML INJECTION (07:25)
--- NOTE | 2025-06-15 07:33 | PM.OP ---
Operative Report Date of procedure: June 15, 2025 Surgeon: Guillermo Hollins DPM Procedure: Date of procedure: 06/15/2025 Pre-op diagnosis: Osteomyelitis right hallux Post-op diagnosis: Same Post-op findings: Ulceration right distal hallux with underlying osteomyelitis Procedure done: Partial hallux amputation right foot CPT 78222 Implants: None Specimens removed: Distal right hallux Surgeon: Dr. Guillermo Hollins DPM Floor Nurse: Julián Estimated blood loss: 2 cc Tourniquet time: No tourniquet used Complications: None Patient is a 64-year-old male that has a history of chronic osteomyelitis with ischemic ulcer distal right hallux. The patient has had the aforementioned chief complaint for some time. Conservative treatment measures have been attempted and the patient has opted for surgical intervention at this time. A lengthy discussion regarding the procedure, including risks and complications has been had with the patient and is noted in the recent clinic note. Written and verbal consent have been obtained. All patient questions have been answered to the patient?s satisfaction. No written or verbal guarantees have been given or implied. The patient has been NPO since midnight. The history has been reviewed and the history and physical is current. The signed consent was confirmed and placed in the patient chart. Patient imaging has been reviewed and is consistent with the diagnosis. Under mild sedation, the patient was brought into the operating room and placed on the table in the supine position. IV antibiotics were given by the anesthesia team as preoperative surgical prophylaxis. A local field block was performed using 0.5% Marcaine plain. A pneumatic tourniquet was then placed about the right ankle but was not inflated. The operative extremity was then prepped and draped in the usual fashion. The following procedure was then performed. Attention was directed to the distal aspect of the right hallux where a full-thickness ulceration was noted. This had positive probe to bone. A fishmouth incision was made at the level of the hallux interphalangeal joint. Dissection was carried down to the level of the hallux interphalangeal joint. Soft tissue attachments were released. The distal aspect of the hallux was passed from the operative field to be sent as surgical specimen. No abscess or signs of deep space infection were noted. Site was irrigated with sterile saline. Incision was closed using 3-0 nylon in simple interrupted fashion. Good blood flow was noted to distal aspect of amputation site. Incision site was dressed with Xeroform, 4 x 4 gauze, Kerlix, Gomez. The patient tolerated the procedure and anesthesia well and without complication. The patient was transported from the operating room to the recovery room with vital signs stable and vascular status intact to all digits of the right foot. The patient was given both written and verbal instructions to remain weightbearing as tolerated to the operative extremity, to keep dressings/splint clean, dry and intact and to take pain medication as directed. The patient will follow-up in the outpatient setting at their scheduled appointment. The patient was discharged with my personal number and was instructed to call if any questions or issues should arise. They were discharged home once anesthesia criteria was met.
--- NOTE | 2025-06-15 07:50 | ANE.PACU2 ---
Inpatient post-anesthesia follow up: Airway intact: Yes Vital signs: Temperature 97.4 F Pulse Rate 70 Respiratory Rate 15 Blood Pressure 150/83 Pulse Oximetry 96 Oxygen Delivery Me thod Room Air Oxygen Flow Rate Fraction of Inspir ed Oxygen Hydration adequate: Yes Nausea and vomiting: No Pain level: 1 Mental status: Baseline
== END 2025-06-15 07:55 | disposition home or self-care (01) ==
PROVIDERS: PCP Internal Medicine; Visit Provider Podiatrist Foot & Ankle Surgery
PROC: (CPT 28825; principal; 2025-06-15 07:00)
DX: M86.171 Other acute osteomyelitis, right ankle and foot (principal); E11.9 Type 2 diabetes mellitus without complications; Z79.82 Long term (current) use of aspirin; Z79.84 Long term (current) use of oral hypoglycemic drugs; D50.9 Iron deficiency anemia, unspecified; I25.2 Old myocardial infarction; I73.9 Peripheral vascular disease, unspecified; E78.5 Hyperlipidemia, unspecified; J44.9 Chronic obstructive pulmonary disease, unspecified; I10 Essential (primary) hypertension; E03.9 Hypothyroidism, unspecified; F17.210 Nicotine dependence, cigarettes, uncomplicated
CPT/HCPCS: 28825; 36416; 82962; 88305; 88311; J0690; J3490; J7030; J9999; L3260

== ENCOUNTER → 2025-06-23 14:51 | Outpatient (BNVA) | payer MEDICARE, SELFPAY | PROVIDERS: PCP Internal Medicine; Visit Provider Podiatrist Foot & Ankle Surgery | DX: L08.9 Local infection of the skin and subcutaneous tissue, unspecified (principal); E11.8 Type 2 diabetes mellitus with unspecified complications; I73.9 Peripheral vascular disease, unspecified; Z79.4 Long term (current) use of insulin; Z79.84 Long term (current) use of oral hypoglycemic drugs | CPT/HCPCS: 99213 ==

== ENCOUNTER → 2025-06-30 10:20 | Outpatient (BNVA) | payer MEDICARE, SELFPAY | PROVIDERS: PCP Internal Medicine; Visit Provider Nurse Practitioner Family | DX: L82.0 Inflamed seborrheic keratosis (principal) | CPT/HCPCS: 17110; 99213 ==

== ENCOUNTER → 2025-07-14 15:15 | Outpatient (BNVA) | payer MEDICARE, SELFPAY | PROVIDERS: PCP Internal Medicine; Visit Provider Podiatrist Foot & Ankle Surgery | DX: L08.9 Local infection of the skin and subcutaneous tissue, unspecified (principal); E11.8 Type 2 diabetes mellitus with unspecified complications; I73.9 Peripheral vascular disease, unspecified; Z79.84 Long term (current) use of oral hypoglycemic drugs; Z79.4 Long term (current) use of insulin | CPT/HCPCS: 99213 ==

== ENCOUNTER 2025-07-16 20:48 | Emergency (ER) | payer MEDICARE, SELFPAY ==
[2025-07-16 20:52] VITALS: BP 180/67; PULSE 93; RESP 16; TEMP 36.8; O2SAT 97; BMI 39.0
--- OUTSIDE RECORDS SUMMARY | 2025-07-16 20:54 | XMS_ITS | Encounter Summary ---
Author Organization 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
--- OUTSIDE RECORDS SUMMARY | 2025-07-16 20:54 | XMS_ITS | Clinical Summary ---
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
--- OUTSIDE RECORDS SUMMARY | 2025-07-16 20:54 | XMS_ITS | Encounter Summary ---
Author Organization [facility] Address [address] [place] [address] Care Team Providers Care Ekg Monitor Tech Name Role Phone Madeline Shields DO Primary Care Provider +1- [phone] Encounter Details Date Type Department Care Team (Latest Contact Info) Description 10/24/2004 Outpatient Historical [facility] Pain Management Procedures [address] [place] [address] Alok Rhoades MD NO ADDRESS ON FILE LUMBOSACRAL NEURITIS NOS (Primary Dx) Social History Tobacco Use Types Packs/Day Years Used Date Smoking Tobacco: Never Assessed Sex and Gender Information Value Date Recorded Sex Assigned at Not on file Legal Sex Male 6:18 AM [employer]ING [employer] Gender Identity Not on file Sexual Orientation Not on file documented as of this encounter Plan of Treatment Not on file documented as of this encounter Visit Diagnoses Diagnosis Thoracic or lumbosacral neuritis or radiculitis, unspecified- Primary documented in this encounter Care Teams Ekg Monitor Tech Relationship Specialty Start Date End Date Madeline Shields DO PCP - General Family Practice 07/02/19 documented as of this encounter
--- OUTSIDE RECORDS SUMMARY | 2025-07-16 20:54 | XMS_ITS | Encounter Summary ---
Author Organization [facility] Address [address] [place] [address] Care Team Providers Care Automatic I Threading Machine Feeder Name Role Phone Madeline Shields DO Primary Care Provider +1- [phone] Encounter Details Date Type Department Care Team (Latest Contact Info) Description 05/11/2004 Outpatient Historical [facility] Pain Management Procedures [address] [place] [address] Alok Rhoades MD NO ADDRESS ON FILE LUMBOSACRAL NEURITIS NOS (Primary Dx) Social History Tobacco Use Types Packs/Day Years Used Date Smoking Tobacco: Never Assessed Sex and Gender Information Value Date Recorded Sex Assigned at Not on file 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
--- OUTSIDE RECORDS SUMMARY | 2025-07-16 20:54 | XMS_ITS | Encounter Summary ---
Author Organization [facility] Address [address] [place] [address] Care Team Providers Care Receivables Specialist Name Role Phone Madeline Shields DO Primary Care Provider +1- [phone] Encounter Details Date Type Department Care Team (Latest Contact Info) Description 02/12/[address] 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
--- OUTSIDE RECORDS SUMMARY | 2025-07-16 20:54 | XMS_ITS | Encounter Summary ---
Author Organization [facility] Address [address] [place] [address] Care Team Providers Care Pouring Crane Operator Name Role Phone Madeline Shields DO Primary Care Provider +1- [phone] Encounter Details Date Type Department Care Team (Latest Contact Info) Description 07/21/2003 Outpatient Historical [facility] Pain Management Procedures [address] 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
--- OUTSIDE RECORDS SUMMARY | 2025-07-16 20:54 | XMS_ITS | Encounter Summary ---
Author Organization [facility] Address [address] [place] [address] Care Team Providers Care Timber Surveyor Name Role Phone Madeline Shields DO Primary Care Provider +1- [phone] Encounter Details Date Type Department Care Team (Latest Contact Info) Description 01/30/2003 [facility] [address] [place] [address] Alok Rhoades MD NO ADDRESS ON FILE LUMBAGO (Primary Dx) Social History Tobacco Use Types Packs/Day Years Used Date Smoking Tobacco: Never Assessed Sex and Gender Information Value Date Recorded Sex Assigned at Not on file 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
--- OUTSIDE RECORDS SUMMARY | 2025-07-16 20:54 | XMS_ITS | Encounter Summary ---
Author Organization [facility] Address [address] [place] [address] Care Team Providers Care Senior Data Mining Analyst Name Role Phone Madeline Shields DO Primary Care Provider +1- [phone] Encounter Details Date Type Department Care Team (Latest Contact Info) Description 07/28/2004 Outpatient Historical [facility] [address] [place] [address] Alok Rhoades MD NO ADDRESS ON FILE LUMBOSACRAL NEURITIS NOS (Primary Dx); POSTLAMINECT SYND-LUMBAR Social History Tobacco Use Types Packs/Day Years Used Date Smoking Tobacco: Never Assessed Sex and Gender Information Value Date Recorded Sex Assigned at Not on file Legal Sex Male 6:18 AM BLAST SETTER Gender Identity Not on file Sexual Orientation Not on file documented as of this encounter Plan of Treatment Not on file documented as of this encounter Visit Diagnoses Diagnosis Thoracic or lumbosacral neuritis or radiculitis, unspecified- Primary Postlaminectomy syndrome, lumbar region documented in this encounter Care Teams Senior Data Mining Analyst Relationship Specialty Start Date End Date Madeline Shields DO PCP - General Family Practice 07/02/19 documented as of this encounter
--- OUTSIDE RECORDS SUMMARY | 2025-07-16 20:54 | XMS_ITS | Encounter Summary ---
Author Organization [facility] Address [address] Attn: [place] [address] Care Team Providers Care [place] Tax Assessor Name Role Phone Madeline Shields DO Primary Care Provider +1- [phone] Encounter Details Date Type Department Care Team (Late st Contact Info) Description 08/23/2001 Outpatient Historical Alok Rhoades MD NO ADDRESS ON FILE Social History Tobacco Use Types Packs/Day Years Used Date Smoking Tobacco: Never Assessed Sex and Gender Information Value Date Recorded Sex Assigned at Not on file Legal Sex Male 6:18 AM PROJECT DEVELOPER Gender Identity Not on file Sexual Orientation Not on file documented as of this encounter Plan of Treatment Not on file documented as of this encounter Visit Diagnoses Not on filedocumented in this encounter Care Teams [place] Tax Assessor Relationship Specialty Start Date End Date Madeline Shields DO PCP - General Family Practice 07/02/19 documented as of this encounter
--- OUTSIDE RECORDS SUMMARY | 2025-07-16 20:54 | XMS_ITS | Encounter Summary ---
Author Organization [facility] Address [address] [facility] Attn: [place] [address] Care Team Providers Care Field Operations Farm Manager Name Role Phone Madeline Shields DO Primary Care Provider +1- [phone] Encounter Details Date Type Department Care Team (Late st Contact Info) Description 03/15/2001 Outpatient Historical Alok Rhoades MD NO ADDRESS ON FILE Social History Tobacco Use Types Packs/Day Years Used Date Smoking Tobacco: Never Assessed Sex and Gender Information Value Date Recorded Sex Assigned at Not on file Legal Sex Male 6:18 AM CRACKER OFF Gender Identity Not on file Sexual Orientation Not on file documented as of this encounter Plan of Treatment Not on file documented as of this encounter Visit Diagnoses Not on filedocumented in this encounter Care Teams Field Operations Farm Manager Relationship Specialty Start Date End Date Madeline Shields DO PCP - General Family Practice 07/02/19 documented as of this encounter
--- OUTSIDE RECORDS SUMMARY | 2025-07-16 20:54 | XMS_ITS | Encounter Summary ---
Author Organization [facility] Address [address] [place] [address] Care Team Providers Care Product Managent Intern Name Role Phone Madeline Shields DO Primary Care Provider +1- [phone] Reason for Referral * CT Scan (Routine) - Closed Specialty Diagnoses / Procedures Referred By Conttricia t Referred To Contact Radiology Diagnoses Cigarette nicotine dependence with nicotine-induced disorder Procedures CT LUNG SCREENING Madeline Shields DO Phone: tel: fax: [facility] [address] [address] Phone: tel: fax: Referral ID Status Reason Start Date Expiration Date V isits Requested Visits Authorized [id number] Closed [facility] TO SCHEDULE ([facility]) 06/27/2019 07/27/2020 1 1 Encounter Details Date Type Department Care Team (Late st Contact Info) Description 06/27/2019 Ancillary Orders [facility] Pre-Registration [place] CALL TO MAKE APPOINTMENT ONLY [address] [place] [address] Madeline Shields DO [address] [place] [id number] Cigarette nicotine dependence with nicotine-induced disorder Social History Tobacco Use Types Packs/Day Years Used Date Smoking Tobacco: Never Assessed Sex and Gender Information Value Date Recorded Sex Assigned at Not on file Legal Sex Male 6:18 AM ATG ARCHITECT Gender Identity Not on file Sexual Orientation Not on file documented as of this encounter Plan of Treatment Not on file documented as of this encounter Results * CT LUNG SCREENING (07/09/2019 4:43 PM CDT) Anatomical Region Laterality Modality Chest Computed Tomogra phy 07/10/2019 5:57 AM CDT Impressions 07/10/2019 8:09 AM CDT IMPRESSION: Please see below. Exam: CT LUNG SCREENING Date/Time of Exam: 07/09/2019 4:43 PM Reason For Exam: See Diagnosis. Diagnosis: Cigarette nicotine dependence with nicotine-induced disorder. Technique: Low-dose CT protocol performed. Findings: Low-grade emphysematous change. Trace bronchial cuffing without bronchiectasis. Trace regions of dependent atelectasis both lungs. No pleural or pericardial effusion. No gross thoracic adenopathy by size criteria given limitation of absent IV contrast. Limited images of upper abdomen without gross significant pathology. Imaged skeleton without apparent acute pathology. IMPRESSION: Lung-RADS 1: COPD. Continue annual screening with LDCT in 12 months. Narrative Procedure Note Marilee Edwards MD - 07/10/2019 IMPRESSION: Please see below. Exam: CT LUNG SCREENING Date/Time of Exam: 07/09/2019 4:43 PM Reason For Exam: See Diagnosis. Diagnosis: Cigarette nicotine dependence with nicotine-induced disorder. Technique: Low-dose CT protocol performed. Findings: Low-grade emphysematous change. Trace bronchial cuffing without bronchiectasis. Trace regions of dependent atelectasis both lungs. No pleural or pericardial effusion. No gross thoracic adenopathy by size criteria given limitation of absent IV contrast. Limited images of upper abdomen without gross significant pathology. Imaged skeleton without apparent acute pathology. IMPRESSION: Lung-RADS 1: COPD. Continue annual screening with LDCT in 12 months. us Madeline Shields DO CT ORDERABLES Final Resu lt documented in this encounter Visit Diagnoses Diagnosis Cigarette nicotine dependence with nicotine-induced disorder Unspecified drug-induced mental disorder Cigarette nicotine dependence with nicotine-induced disorder Unspecified drug-induced mental disorder documented in this encounter Care Teams Product Managent Intern Relationship Specialty Start Date End Date Madeline Shields DO PCP - General Family Practice 9/11/19 documented as of this encounter
--- OUTSIDE RECORDS SUMMARY | 2025-07-16 20:54 | XMS_ITS | Encounter Summary ---
Author Organization [facility] Address [address] [place] [address] Care Team Providers Care Cook Helper Meat Name Role Phone Madeline Shields DO Primary Care Provider +1- [phone] Encounter Details Date Type Department Care Team (Latest Contact Info) Description 01/06/2005 [facility]patient [facility] [address] 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
--- OUTSIDE RECORDS SUMMARY | 2025-07-16 20:54 | XMS_ITS | Encounter Summary ---
Author Organization [facility] Address [address] Attn: [place] [address] Care Team Providers Care Front Worker Name Role Phone Madeline Shields DO Primary Care Provider +1- [phone] Encounter Details Date Type Department Care Team (Late st Contact Info) Description 11/19/2001 Outpatient Historical Alok Rhoades MD NO ADDRESS ON FILE Social History Tobacco Use Types Packs/Day Years Used Date Smoking Tobacco: Never Assessed Sex and Gender Information Value Date Recorded Sex Assigned at Not on file Legal Sex Male 6:18 AM WEB SERVICES ARCHITECT Gender Identity Not on file Sexual Orientation Not on file documented as of this encounter Plan of Treatment Not on file documented as of this encounter Visit Diagnoses Not on filedocumented in this encounter Care Teams Front Worker Relationship Specialty Start Date End Date Madeline Shields DO PCP - General Family Practice 07/02/19 documented as of this encounter
--- OUTSIDE RECORDS SUMMARY | 2025-07-16 20:54 | XMS_ITS | Encounter Summary ---
Author Organization [facility] Address [address] [place] [address] Care Team Providers Care Price Changer Name Role Phone Madeline Shields DO Primary Care Provider +1- [phone] Encounter Details Date Type Department Care Team (Latest Contact Info) Description 11/19/2001 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
--- OUTSIDE RECORDS SUMMARY | 2025-07-16 20:54 | XMS_ITS | Encounter Summary ---
Author Organization [facility] Address [address] [place] [address] Care Team Providers Care Hotel Manager Name Role Phone Madeline Shields DO Primary Care Provider +1- [phone] Encounter Details Date Type Department Care Team (Latest Contact Info) Description 03/15/2001 Outpatient Historical [facility] [address] [place] [address] Alok Rhodaes MD NO ADDRESS ON FILE Lumbago (Primary Dx) Social History Tobacco Use Types Packs/Day Years Used Date Smoking Tobacco: Never Assessed Sex and Gender Information Value Date Recorded Sex Assigned at Not on file Legal Sex Male 6:18 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
--- OUTSIDE RECORDS SUMMARY | 2025-07-16 20:54 | XMS_ITS | Encounter Summary ---
Author Organization [facility] Address [address] [place] [address] Care Team Providers Care Trip Rider Name Role Phone Madeline Shields DO Primary Care Provider +1- [phone] Encounter Details Date Type Department Care Team (Latest Contact Info) Description 02/04/2002 Outpatient Historical [facility] [address] [place] [address] Alok Rhoades MD NO ADDRESS ON FILE POSTLAMINECT SYND-LUMBAR (Primary Dx) Social History Tobacco Use Types Packs/Day Years Used Date Smoking Tobacco: Never Assessed Sex and Gender Information Value Date Recorded Sex Assigned at Not on file Legal Sex Male 6:18 AM TYPE INSPECTOR Gender Identity Not on file Sexual Orientation Not on file documented as of this encounter Plan of Treatment Not on file documented as of this encounter Visit Diagnoses Diagnosis Postlaminectomy syndrome, lumbar region- Primary documented in this encounter Care Teams Trip Rider Relationship Specialty Start Date End Date Madeline Shields DO PCP - General Family Practice 07/02/19 documented as of this encounter
--- OUTSIDE RECORDS SUMMARY | 2025-07-16 20:54 | XMS_ITS | Encounter Summary ---
Author Organization [facility] Address [address] [place] [address] Care Team Providers Care Medical Office Assistant Instructor Name Role Phone Madeline Shields DO Primary Care Provider +1- [phone] Encounter Details Date Type Department Care Team (Latest Contact Info) Description 05/02/2002 Outpatient Historical [facility] [address] [place] [address] Alok Rhoades MD NO ADDRESS ON FILE LUMBOSACRAL NEURITIS NOS (Primary Dx) Social History Tobacco Use Types Packs/Day Years Used Date Smoking Tobacco: Never Assessed Sex and Gender Information Value Date Recorded Sex Assigned at Not on file Legal Sex Male 6:18 AM 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
--- OUTSIDE RECORDS SUMMARY | 2025-07-16 20:54 | XMS_ITS | Encounter Summary ---
Author Organization [facility] Address [address] [place] [address] Care Team Providers Care Technical Trainer Name Role Phone Madeline Shields DO Primary Care Provider +1- [phone] Encounter Details Date Type Department Care Team (Latest Contact Info) Description 10/24/2004 Outpatient [facility] [address] [place] [address] Alok Rhoades MD NO ADDRESS ON FILE LUMBOSACRAL NEURITIS NOS (Primary Dx); POSTLAMINECT SYND-LUMBAR Social History Tobacco Use Types Packs/Day Years Used Date Smoking Tobacco: Never Assessed Sex and Gender Information Value Date Recorded Sex Assigned at Not on file Legal Sex Male 6:18 AM TODDLER CAREGIVER Gender Identity Not on file Sexual Orientation Not on file documented as of this encounter Plan of Treatment Not on file documented as of this encounter Visit Diagnoses Diagnosis Thoracic or lumbosacral neuritis or radiculitis, unspecified- Primary Postlaminectomy syndrome, lumbar region documented in this encounter Care Teams Technical Trainer Relationship Specialty Start Date End Date Madeline Shields DO PCP - General Family Practice 07/02/19 documented as of this encounter
--- OUTSIDE RECORDS SUMMARY | 2025-07-16 20:54 | XMS_ITS | Encounter Summary ---
Author Organization [facility] Address [address] [place] [address] Care Team Providers Care Bulb Packer Name Role Phone Madeline Shields DO Primary Care Provider +1- [phone] Encounter Details Date Type Department Care Team (Latest Contact Info) Description 04/22/2003 Outpatient Historical [facility] Pain Management Procedures [address] [place] [address] Alok Rhoades MD NO ADDRESS ON FILE LUMBOSACRAL NEURITIS NOS (Primary Dx) Social History Tobacco Use Types Packs/Day Years Used Date Smoking Tobacco: Never Assessed Sex and Gender Information Value Date Recorded Sex Assigned at Not on file Legal Sex Male 6:18 AM 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
--- OUTSIDE RECORDS SUMMARY | 2025-07-16 20:54 | XMS_ITS | Encounter Summary ---
Author Organization [facility] Address [address] Attn: [place] [address] Care Team Providers Care Caterer'S Aide Name Role Phone Madeline Shields DO Primary Care Provider +1- [phone] Encounter Details Date Type Department Care Team (Late st Contact Info) Description 05/02/2002 Outpatient Historical Alok Rhoades MD NO ADDRESS ON FILE Social History Tobacco Use Types Packs/Day Years Used Date Smoking Tobacco: Never Assessed Sex and Gender Information Value Date Recorded Sex Assigned at Not on file Legal Sex Male 6:18 AM CARTOGRAPHY/MAPPING TECHNICIAN Gender Identity Not on file Sexual Orientation Not on file documented as of this encounter Plan of Treatment Not on file documented as of this encounter Visit Diagnoses Not on filedocumented in this encounter Care Teams Caterer'S Aide Relationship Specialty Start Date End Date Madeline Shields DO PCP - General Family Practice 07/02/19 documented as of this encounter
--- OUTSIDE RECORDS SUMMARY | 2025-07-16 20:54 | XMS_ITS | Patient Health Record ---
Author Organization [facility] Address [address] [place] [address] Care Team Providers Care Drum Sander Offbearer Name Role Phone DR. Tammi Ames Primary Care Provider Unavaila Zoe Rodriguez Unavailable [phone] Migration, Provider Unavailable Unavailable Adis Honeycutt Unavailable [phone] Allergies Allergen (clinical drug ingredient) Drug/Non Drug Allergy documented on EMR Reaction Allergy Type Onset Date Status amitriptyline Amitriptyline Unknown Drug Allergy Active Results Component Value Reference Range Flag Notes Fluoro Needle For Placement - Spine 53231 Reviewed date:10/29/2024 02:54:17 PM Interpretation: Performing Lab: Notes/Report: Urine Drug Screen (cup read) - [id number] Reviewed date:02/11/2025 03:38:23 PM Interpretation: Performing Lab: Notes/Report: OPI + Urine Drug Screen (cup read) - [id number] Reviewed date:04/09/2025 04:05:07 PM Interpretation: Performing Lab: Notes/Report: OPI + Urine Drug Screen (cup read) - [id number] Reviewed date:11/20/2024 04:46:14 PM Interpretation: Performing Lab: Notes/Report: OPI + Urine Drug Screen (cup read) - [id number] Reviewed date:06/04/2025 03:36:11 PM Interpretation: Performing Lab: Notes/Report: OPI + Urine Drug Screen (cup read) - [id number] Reviewed date:09/04/2024 05:05:12 PM Interpretation: Performing Lab: Notes/Report: OPI + Urine Drug Screen (confirmat ion by instrument) - [id number] Reviewed date:09/09/2024 11:51:36 AM Interpretation: Performing Lab: Notes/Report: Pre-Procedure Blood Glucose Test - [id number] Reviewed date:10/28/2024 02:11:19 PM Interpretation:130 Performing Lab: Notes/Report: 130 Urine Confirmation Panel (in strument) - [id number] Reviewed date:04/14/2025 02:00:29 PM Interpretation: Performing Lab: Notes/Report: 6-Acetylmorphine 0 <6 ng/mL N This chloé t was developed and its performance characteristics determined by [facility]. It has not been cleared or approved by the U.S. Food and Drug Administration. 7-Aminoclonazepam 0 <60 ng/mL N This te st was developed and its performance characteristics determined by [facility]. It has not been cleared or approved by the U.S. Food and Drug Administration. Alprazolam 0 <60 ng/mL N This test was developed and its performance characteristics determined by [facility]. It has not been cleared or approved by the U.S. Food and Drug Administration. Amphetamine 0 <75 ng/mL N This test was developed and its performance characteristics determined by [facility]. It has not been cleared or approved by the U.S. Food and Drug Administration. aOH-Alprazolam 0 <60 ng/mL N This test was developed and its performance characteristics determined by [facility]. It has not been cleared or approved by the U.S. Food and Drug Administration. Buprenorphine 0.0 <7.5 ng/mL N This test w as developed and its performance characteristics determined by [facility]. It has not been cleared or approved by the U.S. Food and Drug Administration. Norbuprenorphine 0.0 <37.5 ng/mL N This te st was developed and its performance characteristics determined by [facility]. It has not been cleared or approved by the U.S. Food and Drug Administration. Carisoprodol 0 <75 ng/mL N This test wa s developed and its performance characteristics determined by [facility]. It has not been cleared or approved by the U.S. Food and Drug Administration. Codeine 0 <75 ng/mL N This test was developed and its performance characteristics determined by [facility]. It has not been cleared or approved by the U.S. Food and Drug Administration. EDDP 0 <75 ng/mL N This test was developed and its performance characteristics determined by [facility]. It has not been cleared or approved by the U.S. Food and Drug Administration. Fentanyl 0 <6 ng/mL N This test was developed and its performance characteristics determined by [facility]. It has not been cleared or approved by the U.S. Food and Drug Administration. Hydrocodone 0 <75 ng/mL N This test was developed and its performance characteristics determined by [facility]. It has not been cleared or approved by the U.S. Food and Drug Administration. Hydromorphone 44 <75 ng/mL N This test w as developed and its performance characteristics determined by [facility]. It has not been cleared or approved by the U.S. Food and Drug Administration. Lorazepam 0 <60 ng/mL N This test was developed and its performance characteristics determined by [facility]. It has not been cleared or approved by the U.S. Food and Drug Administration. MDMA 0 <75 ng/mL N This test was developed and its performance characteristics determined by [facility]. It has not been cleared or approved by the U.S. Food and Drug Administration. Meperidine 0.0 <37.5 ng/mL N This test was developed and its performance characteristics determined by [facility]. It has not been cleared or approved by the U.S. Food and Drug Administration. Meprobamate 0 <75 ng/mL N This test was developed and its performance characteristics determined by [facility]. It has not been cleared or approved by the U.S. Food and Drug Administration. Methamphetamine 9 <75 ng/mL N This test was developed and its performance characteristics determined by [facility]. It has not been cleared or approved by the U.S. Food and Drug Administration. Methadone 0 <75 ng/mL N This test was developed and its performance characteristics determined by [facility]. It has not been cleared or approved by the U.S. Food and Drug Administration. Morphine 418 <75 ng/mL H This test was developed and its performance characteristics determined by [facility]. It has not been cleared or approved by the U.S. Food and Drug Administration. Nordiazepam 0 <60 ng/mL N This test was developed and its performance characteristics determined by [facility]. It has not been cleared or approved by the U.S. Food and Drug Administration. Norfentanyl 0 <6 ng/mL N This test was developed and its performance characteristics determined by [facility]. It has not been cleared or approved by the U.S. Food and Drug Administration. Normeperidine 0.0 <37.5 ng/mL N This test was developed and its performance characteristics determined by [facility]. It has not been cleared or approved by the U.S. Food and Drug Administration. O-desmethyltramadol >5000 <75 ng/mL > This test was developed and its performance characteristics determined by [facility]. It has not been cleared or approved by the U.S. Food and Drug Administration. Oxazepam 0 <60 ng/mL N This test was developed and its performance characteristics determined by [facility]. It has not been cleared or approved by the U.S. Food and Drug Administration. Oxycodone 0.0 <37.5 ng/mL N This test was developed and its performance characteristics determined by [facility]. It has not been cleared or approved by the U.S. Food and Drug Administration. Oxymorphone 0 <75 ng/mL N This test was developed and its performance characteristics determined by [facility]. It has not been cleared or approved by the U.S. Food and Drug Administration. Phencyclidine 0.0 <7.5 ng/mL N This test w as developed and its performance characteristics determined by [facility]. It has not been cleared or approved by the U.S. Food and Drug Administration. Tapentadol 0.0 <37.5 ng/mL N This test was developed and its performance characteristics determined by [facility]. It has not been cleared or approved by the U.S. Food and Drug Administration. Temazepam 0 <60 ng/mL N This test was developed and its performance characteristics determined by [facility]. It has not been cleared or approved by the U.S. Food and Drug Administration. Tramadol >5000 <75 ng/mL > This test was developed and its performance characteristics determined by [facility]. It has not been cleared or approved by the U.S. Food and Drug Administration. Norhydrocodone 0 <75 ng/mL N This test was developed and its performance characteristics determined by [facility]. It has not been cleared or approved by the U.S. Food and Drug Administration. Noroxycodone 0 <38 ng/mL N This test wa s developed and its performance characteristics determined by [facility]. It has not been cleared or approved by the U.S. Food and Drug Administration. Pregabalin >99267 <225 ng/mL > This test was developed and its performance characteristics determined by [facility]. It has not been cleared or approved by the U.S. Food and Drug Administration. Gabapentin 0 <225 ng/mL N This test was developed and its performance characteristics determined by [facility]. It has not been cleared or approved by the U.S. Food and Drug Administration. Benzoylecgonine 0.0 <37.5 ng/mL N This chloé t was developed and its performance characteristics determined by [facility]. It has not been cleared or approved by the U.S. Food and Drug Administration. 4-Hydroxy Xylazine 0 <25 ng/mL N This t est was developed and its performance characteristics determined by [facility]. It has not been cleared or approved by the U.S. Food and Drug Administration. Urine Confirmation Panel (in strument) - [id number] Reviewed date:02/17/2025 11:03:06 AM Interpretation: Performing Lab: Notes/Report: 6-Acetylmorphine 0 <6 ng/mL N This chloé t was developed and its performance characteristics determined by [facility]. It has not been cleared or approved by the U.S. Food and Drug Administration. 7-Aminoclonazepam 0 <60 ng/mL N This te st was developed and its performance characteristics determined by [facility]. It has not been cleared or approved by the U.S. Food and Drug Administration. Alprazolam 0 <60 ng/mL N This test was developed and its performance characteristics determined by [facility]. It has not been cleared or approved by the U.S. Food and Drug Administration. Amphetamine 0 <75 ng/mL N This test was developed and its performance characteristics determined by [facility]. It has not been cleared or approved by the U.S. Food and Drug Administration. aOH-Alprazolam 0 <60 ng/mL N This test was developed and its performance characteristics determined by [facility]. It has not been cleared or approved by the U.S. Food and Drug Administration. Buprenorphine 0.0 <7.5 ng/mL N This test w as developed and its performance characteristics determined by [facility]. It has not been cleared or approved by the U.S. Food and Drug Administration. Norbuprenorphine 0.0 <37.5 ng/mL N This te st was developed and its performance characteristics determined by [facility]. It has not been cleared or approved by the U.S. Food and Drug Administration. Carisoprodol 0 <75 ng/mL N This test wa s developed and its performance characteristics determined by [facility]. It has not been cleared or approved by the U.S. Food and Drug Administration. Codeine 0 <75 ng/mL N This test was developed and its performance characteristics determined by [facility]. It has not been cleared or approved by the U.S. Food and Drug Administration. EDDP 0 <75 ng/mL N This test was developed and its performance characteristics determined by [facility]. It has not been cleared or approved by the U.S. Food and Drug Administration. Fentanyl 0 <6 ng/mL N This test was developed and its performance characteristics determined by [facility]. It has not been cleared or approved by the U.S. Food and Drug Administration. Hydrocodone 0 <75 ng/mL N This test was developed and its performance characteristics determined by [facility]. It has not been cleared or approved by the U.S. Food and Drug Administration. Hydromorphone 105 <75 ng/mL H This test w as developed and its performance characteristics determined by [facility]. It has not been cleared or approved by the U.S. Food and Drug Administration. Lorazepam 0 <60 ng/mL N This test was developed and its performance characteristics determined by [facility]. It has not been cleared or approved by the U.S. Food and Drug Administration. MDMA 0 <75 ng/mL N This test was developed and its performance characteristics determined by [facility]. It has not been cleared or approved by the U.S. Food and Drug Administration. Meperidine 0.0 <37.5 ng/mL N This test was developed and its performance characteristics determined by [facility]. It has not been cleared or approved by the U.S. Food and Drug Administration. Meprobamate 0 <75 ng/mL N This test was developed and its performance characteristics determined by [facility]. It has not been cleared or approved by the U.S. Food and Drug Administration. Methamphetamine 0 <75 ng/mL N This test was developed and its performance characteristics determined by [facility]. It has not been cleared or approved by the U.S. Food and Drug Administration. Methadone 0 <75 ng/mL N This test was developed and its performance characteristics determined by [facility]. It has not been cleared or approved by the U.S. Food and Drug Administration. Morphine 0 <75 ng/mL N This test was developed and its performance characteristics determined by [facility]. It has not been cleared or approved by the U.S. Food and Drug Administration. Nordiazepam 0 <60 ng/mL N This test was developed and its performance characteristics determined by [facility]. It has not been cleared or approved by the U.S. Food and Drug Administration. Norfentanyl 0 <6 ng/mL N This test was developed and its performance characteristics determined by [facility]. It has not been cleared or approved by the U.S. Food and Drug Administration. Normeperidine 0.0 <37.5 ng/mL N This test was developed and its performance characteristics determined by [facility]. It has not been cleared or approved by the U.S. Food and Drug Administration. O-desmethyltramadol 89 <75 ng/mL H This test was developed and its performance characteristics determined by [facility]. It has not been cleared or approved by the U.S. Food and Drug Administration. Oxazepam 0 <60 ng/mL N This test was developed and its performance characteristics determined by [facility]. It has not been cleared or approved by the U.S. Food and Drug Administration. Oxycodone 0.0 <37.5 ng/mL N This test was developed and its performance characteristics determined by [facility]. It has not been cleared or approved by the U.S. Food and Drug Administration. Oxymorphone 0 <75 ng/mL N This test was developed and its performance characteristics determined by [facility]. It has not been cleared or approved by the U.S. Food and Drug Administration. Phencyclidine 0.0 <7.5 ng/mL N This test w as developed and its performance characteristics determined by [facility]. It has not been cleared or approved by the U.S. Food and Drug Administration. Tapentadol 14.9 <37.5 ng/mL N This test was developed and its performance characteristics determined by [facility]. It has not been cleared or approved by the U.S. Food and Drug Administration. Temazepam 10 <60 ng/mL N This test was developed and its performance characteristics determined by [facility]. It has not been cleared or approved by the U.S. Food and Drug Administration. Tramadol >5000 <75 ng/mL > This test was developed and its performance characteristics determined by [facility]. It has not been cleared or approved by the U.S. Food and Drug Administration. Norhydrocodone 0 <75 ng/mL N This test was developed and its performance characteristics determined by [facility]. It has not been cleared or approved by the U.S. Food and Drug Administration. Noroxycodone 0 <38 ng/mL N This test wa s developed and its performance characteristics determined by [facility]. It has not been cleared or approved by the U.S. Food and Drug Administration. Pregabalin >33753 <225 ng/mL > This test was developed and its performance characteristics determined by [facility]. It has not been cleared or approved by the U.S. Food and Drug Administration. Gabapentin 37 <225 ng/mL N This test was developed and its performance characteristics determined by [facility]. It has not been cleared or approved by the U.S. Food and Drug Administration. Benzoylecgonine 0.0 <37.5 ng/mL N This chloé t was developed and its performance characteristics determined by [facility]. It has not been cleared or approved by the U.S. Food and Drug Administration. 4-Hydroxy Xylazine 0 <25 ng/mL N This t est was developed and its performance characteristics determined by [facility]. It has not been cleared or approved by the U.S. Food and Drug Administration. Urine Confirmation Panel (in strument) - [id number] Reviewed date:06/09/2025 01:25:25 PM Interpretation: Performing Lab: Notes/Report: 6-Acetylmorphine 0 <6 ng/mL N This chloé t was developed and its performance characteristics determined by [facility]. It has not been cleared or approved by the U.S. Food and Drug Administration. 7-Aminoclonazepam 0 <60 ng/mL N This te st was developed and its performance characteristics determined by [facility]. It has not been cleared or approved by the U.S. Food and Drug Administration. Alprazolam 0 <60 ng/mL N This test was developed and its performance characteristics determined by [facility]. It has not been cleared or approved by the U.S. Food and Drug Administration. Amphetamine 0 <75 ng/mL N This test was developed and its performance characteristics determined by [facility]. It has not been cleared or approved by the U.S. Food and Drug Administration. aOH-Alprazolam 0 <60 ng/mL N This test was developed and its performance characteristics determined by [facility]. It has not been cleared or approved by the U.S. Food and Drug Administration. Buprenorphine 0.0 <7.5 ng/mL N This test w as developed and its performance characteristics determined by [facility]. It has not been cleared or approved by the U.S. Food and Drug Administration. Norbuprenorphine 0.0 <37.5 ng/mL N This te st was developed and its performance characteristics determined by [facility]. It has not been cleared or approved by the U.S. Food and Drug Administration. Carisoprodol 0 <75 ng/mL N This test wa s developed and its performance characteristics determined by [facility]. It has not been cleared or approved by the U.S. Food and Drug Administration. Codeine 0 <75 ng/mL N This test was developed and its performance characteristics determined by [facility]. It has not been cleared or approved by the U.S. Food and Drug Administration. EDDP 0 <75 ng/mL N This test was developed and its performance characteristics determined by [facility]. It has not been cleared or approved by the U.S. Food and Drug Administration. Fentanyl 0 <6 ng/mL N This test was developed and its performance characteristics determined by [facility]. It has not been cleared or approved by the U.S. Food and Drug Administration. Hydrocodone 0 <75 ng/mL N This test was developed and its performance characteristics determined by [facility]. It has not been cleared or approved by the U.S. Food and Drug Administration. Hydromorphone 0 <75 ng/mL N This test w as developed and its performance characteristics determined by [facility]. It has not been cleared or approved by the U.S. Food and Drug Administration. Lorazepam 0 <60 ng/mL N This test was developed and its performance characteristics determined by [facility]. It has not been cleared or approved by the U.S. Food and Drug Administration. MDMA 0 <75 ng/mL N This test was developed and its performance characteristics determined by [facility]. It has not been cleared or approved by the U.S. Food and Drug Administration. Meperidine 0.0 <37.5 ng/mL N This test was developed and its performance characteristics determined by [facility]. It has not been cleared or approved by the U.S. Food and Drug Administration. Meprobamate 0 <75 ng/mL N This test was developed and its performance characteristics determined by [facility]. It has not been cleared or approved by the U.S. Food and Drug Administration. Methamphetamine 0 <75 ng/mL N This test was developed and its performance characteristics determined by [facility]. It has not been cleared or approved by the U.S. Food and Drug Administration. Methadone 0 <75 ng/mL N This test was developed and its performance characteristics determined by [facility]. It has not been cleared or approved by the U.S. Food and Drug Administration. Morphine 143 <75 ng/mL H This test was developed and its performance characteristics determined by [facility]. It has not been cleared or approved by the U.S. Food and Drug Administration. Nordiazepam 0 <60 ng/mL N This test was developed and its performance characteristics determined by [facility]. It has not been cleared or approved by the U.S. Food and Drug Administration. Norfentanyl 0 <6 ng/mL N This test was developed and its performance characteristics determined by [facility]. It has not been cleared or approved by the U.S. Food and Drug Administration. Normeperidine 0.0 <37.5 ng/mL N This test was developed and its performance characteristics determined by [facility]. It has not been cleared or approved by the U.S. Food and Drug Administration. O-desmethyltramadol >5000 <75 ng/mL > This test was developed and its performance characteristics determined by [facility]. It has not been cleared or approved by the U.S. Food and Drug Administration. Oxazepam 0 <60 ng/mL N This test was developed and its performance characteristics determined by [facility]. It has not been cleared or approved by the U.S. Food and Drug Administration. Oxycodone 0.0 <37.5 ng/mL N This test was developed and its performance characteristics determined by [facility]. It has not been cleared or approved by the U.S. Food and Drug Administration. Oxymorphone 0 <75 ng/mL N This test was developed and its performance characteristics determined by [facility]. It has not been cleared or approved by the U.S. Food and Drug Administration. Phencyclidine 0.0 <7.5 ng/mL N This test w as developed and its performance characteristics determined by [facility]. It has not been cleared or approved by the U.S. Food and Drug Administration. Tapentadol 0.0 <37.5 ng/mL N This test was developed and its performance characteristics determined by [facility]. It has not been cleared or approved by the U.S. Food and Drug Administration. Temazepam 0 <60 ng/mL N This test was developed and its performance characteristics determined by [facility]. It has not been cleared or approved by the U.S. Food and Drug Administration. Tramadol >5000 <75 ng/mL > This test was developed and its performance characteristics determined by [facility]. It has not been cleared or approved by the U.S. Food and Drug Administration. Norhydrocodone 0 <75 ng/mL N This test was developed and its performance characteristics determined by [facility]. It has not been cleared or approved by the U.S. Food and Drug Administration. Noroxycodone 0 <38 ng/mL N This test wa s developed and its performance characteristics determined by [facility]. It has not been cleared or approved by the U.S. Food and Drug Administration. Pregabalin >59110 <225 ng/mL > This test was developed and its performance characteristics determined by [facility]. It has not been cleared or approved by the U.S. Food and Drug Administration. Gabapentin 0 <225 ng/mL N This test was developed and its performance characteristics determined by [facility]. It has not been cleared or approved by the U.S. Food and Drug Administration. Benzoylecgonine 0.0 <37.5 ng/mL N This chloé t was developed and its performance characteristics determined by [facility]. It has not been cleared or approved by the U.S. Food and Drug Administration. 4-Hydroxy Xylazine 0 <25 ng/mL N This t est was developed and its performance characteristics determined by [facility]. It has not been cleared or approved by the U.S. Food and Drug Administration. Tox Results Reviewed date:02/17/2025 02:32:00 PM Interpretation: Performing Lab: Notes/Report: Tox Results Reviewed date:04/14/2025 02:07:36 PM Interpretation: Performing Lab: Notes/Report: Tox Results Reviewed date:06/09/2025 02:55:55 PM Interpretation: Performing Lab: Notes/Report: Reason For Referral No Information Medications Medication SIG (Take, Route, Frequency, Duration) Notes Start Date End Date Status Verapamil *Reorder from [facility] for [facility] and Interaction Alerts* Unknown trazodone *Reorder from [facility] for eRx and Interaction Alerts* Unknown Meloxicam *Pick strength-f orm from [facility] for eRX* Unknown Cymbalta 60 MG Capsule Delayed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 cancer surgeries face Knee Surgery left Since 1984 Shoulder surgery left Since 1986 Angiogram Since 2020 Skin Cancer/ Mass Removal- Left shoulder December 2023 Dr. Bill AMES Back fusion x 2 Since 1990
--- OUTSIDE RECORDS SUMMARY | 2025-07-16 20:54 | XMS_ITS | Encounter Summary ---
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
--- OUTSIDE RECORDS SUMMARY | 2025-07-16 20:54 | XMS_ITS | Encounter Summary ---
Author Organization [facility] Address [address] [place] [address] Care Team Providers Care Griddle Attendant Name Role Phone Madeline Shields DO Primary Care Provider +1- [phone] Encounter Details Date Type Department Care Team (Latest Contact Info) Description 01/06/2005 Outpatient Historical [facility] [address] 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
--- OUTSIDE RECORDS SUMMARY | 2025-07-16 20:54 | XMS_ITS | Encounter Summary ---
Author Organization [facility] Address [address] [place] [address] Care Team Providers Care Client Care Specialist Name Role Phone Madeline Shields DO Primary Care Provider +1- [phone] Encounter Details Date Type Department Care Team (Latest Contact Info) Description 01/04/2001 Outpatient Historical [facility] [address] [place] [address] Alok Rhoades MD NO ADDRESS ON FILE Postlaminectomy syndrome, lumbar region (Primary Dx) Social History Tobacco Use Types Packs/Day Years Used Date Smoking Tobacco: Never Assessed Sex and Gender Information Value Date Recorded Sex Assigned at Not on file 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
--- OUTSIDE RECORDS SUMMARY | 2025-07-16 20:54 | XMS_ITS | Encounter Summary ---
Author Organization [facility] Address [address] [facility] Attn: [place] [address] Care Team Providers Care Motorcycle Riding Instructor Name Role Phone Madeline Shields DO Primary Care Provider +1- [phone] Encounter Details Date Type Department Care Team (Late st Contact Info) Description 07/29/2002 Outpatient Historical Alok Rhoades MD NO ADDRESS ON FILE Social History Tobacco Use Types Packs/Day Years Used Date Smoking Tobacco: Never Assessed Sex and Gender Information Value Date Recorded Sex Assigned at Not on file 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
--- OUTSIDE RECORDS SUMMARY | 2025-07-16 20:54 | XMS_ITS | Encounter Summary ---
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
--- OUTSIDE RECORDS SUMMARY | 2025-07-16 20:54 | XMS_ITS | Encounter Summary ---
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
--- OUTSIDE RECORDS SUMMARY | 2025-07-16 20:54 | XMS_ITS | Encounter Summary ---
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
--- OUTSIDE RECORDS SUMMARY | 2025-07-16 20:54 | XMS_ITS | Clinical Summary ---
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
--- OUTSIDE RECORDS SUMMARY | 2025-07-16 20:54 | XMS_ITS | Encounter Summary ---
Author Organization [facility] Address [address] [place] [address] Care Team Providers Care Parts Counter Salesperson Name Role Phone Madeline Shields DO Primary Care Provider +1- [phone] Encounter Details Date Type Department Care Team (Latest Contact Info) Description 04/22/2003 Outpatient Historical [facility] [address] [place] [address] Alok Rhoades MD NO ADDRESS ON FILE LUMBOSACRAL NEURITIS NOS (Primary Dx) Social History Tobacco Use Types Packs/Day Years Used Date Smoking Tobacco: Never Assessed Sex and Gender Information Value Date Recorded Sex Assigned at Not on file 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
--- OUTSIDE RECORDS SUMMARY | 2025-07-16 20:54 | XMS_ITS | Encounter Summary ---
Author Organization [facility] Address [address] [place] [address] Care Team Providers Care Optomechanical Technician Name Role Phone Madeline Shields DO Primary Care Provider +1- [phone] Encounter Details Date Type Department Care Team (Latest Contact Info) Description 07/29/2002 Outpatient Historical [facility] [address] [place] [address] Alok Rhoades MD NO ADDRESS ON FILE LUMBAGO (Primary Dx) Social History Tobacco Use Types Packs/Day Years Used Date Smoking Tobacco: Never Assessed Sex and Gender Information Value Date Recorded Sex Assigned at Not on file 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
--- OUTSIDE RECORDS SUMMARY | 2025-07-16 20:54 | XMS_ITS | Encounter Summary ---
Author Organization [facility] Address [address] [place] [address] Care Team Providers Care Granite Installer Name Role Phone Madeline Shields DO Primary Care Provider +1- [phone] Encounter Details Date Type Department Care Team (Latest Contact Info) Description 11/04/2002 Outpatient Historical [facility] [address] [place] [address] Alok Rhoades MD NO ADDRESS ON FILE POSTLAMINECT SYND-LUMBAR (Primary Dx) Social History Tobacco Use Types Packs/Day Years Used Date Smoking Tobacco: Never Assessed Sex and Gender Information Value Date Recorded Sex Assigned at Not on file 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
--- OUTSIDE RECORDS SUMMARY | 2025-07-16 20:54 | XMS_ITS | Encounter Summary ---
Author Organization [facility] Address [address] [place] [address] Care Team Providers Care Event Decorator Name Role Phone Madeline Shields DO Primary Care Provider +1- [phone] Encounter Details Date Type Department Care Team (Latest Contact Info) Description 02/12/2004 Outpatient Historical [facility] [address] [place] [address] Alok Rhoades MD NO ADDRESS ON FILE LUMBOSACRAL NEURITIS NOS (Primary Dx) Social History Tobacco Use Types Packs/Day Years Used Date Smoking Tobacco: Never Assessed Sex and Gender Information Value Date Recorded Sex Assigned at Not on file 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
--- OUTSIDE RECORDS SUMMARY | 2025-07-16 20:54 | XMS_ITS | Encounter Summary ---
Author Organization [facility] Address [address] [place] [address] Care Team Providers Care Health Insurance Assessor Name Role Phone Madeline Shields DO Primary Care Provider +1- [phone] Encounter Details Date Type Department Care Team (Latest Contact Info) Description 11/04/2002 Outpatient Historical [facility] Pain Management Procedures [address] [place] [address] Alok Rhoades MD NO ADDRESS ON FILE LUMBOSACRAL NEURITIS NOS (Primary Dx) Social History Tobacco Use Types Packs/Day Years Used Date Smoking Tobacco: Never Assessed Sex and Gender Information Value Date Recorded Sex Assigned at Not on file 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
--- OUTSIDE RECORDS SUMMARY | 2025-07-16 20:54 | XMS_ITS | Encounter Summary ---
Author Organization [facility] Address [address] [place] [address] Care Team Providers Care Plugman Name Role Phone Madeline Shields DO Primary Care Provider +1- [phone] Encounter Details Date Type Department Care Team (Latest Contact Info) Description 08/23/2001 [facility] [address] [place] [address] Alok Rhoades MD NO ADDRESS ON FILE LUMBAGO (Primary Dx) Social History Tobacco Use Types Packs/Day Years Used Date Smoking Tobacco: Never Assessed Sex and Gender Information Value Date Recorded Sex Assigned at Not on file 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
--- OUTSIDE RECORDS SUMMARY | 2025-07-16 20:54 | XMS_ITS | Encounter Summary ---
Author Organization [facility] Address [address] [place] [address] Care Team Providers Care Aircraft Power Plant Assembler Name Role Phone Madeline Shields DO Primary Care Provider +1- [phone] Encounter Details Date Type Department Care Team (Latest Contact Info) Description 01/06/2005 Outpatient Historical [facility] Pain Management Procedures [address] 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
--- OUTSIDE RECORDS SUMMARY | 2025-07-16 20:54 | XMS_ITS | Encounter Summary ---
Author Organization [facility] Address [address] [place] [address] Care Team Providers Care Web Content Producer Name Role Phone Madeline Shields DO Primary Care Provider +1- [phone] Encounter Details Date Type Department Care Team (Latest Contact Info) Description 01/30/2003 Outpatient Historical [facility] Pain Management Procedures [address] 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
--- OUTSIDE RECORDS SUMMARY | 2025-07-16 20:54 | XMS_ITS | Encounter Summary ---
Author Organization [facility] Address [address] [facility] Attn: [place] [address] Care Team Providers Care Rn Testing Name Role Phone Madeline Shields DO Primary Care Provider +1- [phone] Encounter Details Date Type Department Care Team (Late st Contact Info) Description 09/18/2000 Outpatient Historical Alok Rhoades MD NO ADDRESS ON FILE Social History Tobacco Use Types Packs/Day Years Used Date Smoking Tobacco: Never Assessed Sex and Gender Information Value Date Recorded Sex Assigned at Not on file 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
--- OUTSIDE RECORDS SUMMARY | 2025-07-16 20:54 | XMS_ITS | Encounter Summary ---
Author Organization [facility] Address [address] [place] [address] Care Team Providers Care Assurance Senior Name Role Phone Madeline Shields DO Primary Care Provider +1- [phone] Encounter Details Date Type Department Care Team (Latest Contact Info) Description 07/21/2003 Outpatient [facility] [address] [place] [address] Alok Rhoades MD NO ADDRESS ON FILE POSTLAMINECT SYND-LUMBAR (Primary Dx) Social History Tobacco Use Types Packs/Day Years Used Date Smoking Tobacco: Never Assessed Sex and Gender Information Value Date Recorded Sex Assigned at Not on file 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
--- OUTSIDE RECORDS SUMMARY | 2025-07-16 20:54 | XMS_ITS | Encounter Summary ---
Author Organization [facility] Address [address] [place] [address] Care Team Providers Care Blending Tank Tender Helper Name Role Phone Madeline Shields DO Primary Care Provider +1- [phone] Encounter Details Date Type Department Care Team (Latest Contact Info) Description 07/28/2004 Outpatient Historical [facility] Pain Management Procedures [address] 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
--- OUTSIDE RECORDS SUMMARY | 2025-07-16 20:54 | XMS_ITS | Encounter Summary ---
[facility] Organization [facility] Address [address] [place] [address] Care Team Providers Care Funeral Home General Manager Name Role Phone Madeline Shields DO Primary Care Provider +1- [phone] Encounter Details Date Type Department Care Team (Latest Contact Info) Description 11/19/2003 Outpatient Historical [facility] Pain Management Procedures [address] 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
--- OUTSIDE RECORDS SUMMARY | 2025-07-16 20:54 | XMS_ITS | Encounter Summary ---
Author Organization [facility] Address [address] [place] [address] Care Team Providers Care Straight Truck Driver Name Role Phone Madeline Shields DO Primary Care Provider +1- [phone] Encounter Details Date Type Department Care Team (Latest Contact Info) Description 06/05/2001 [facility] [address] [place] [address] Alok Rhoades MD NO ADDRESS ON FILE Thoracic or lumbosacral neuritis or radiculitis, unspecified (Primary Dx) Social History Tobacco Use Types Packs/Day Years Used Date Smoking Tobacco: Never Assessed Sex and Gender Information Value Date Recorded Sex Assigned at Not on file Legal Sex Male 6:18 AM HR ADMINISTRATIVE ASSISTANT Gender Identity Not on file Sexual Orientation Not on file documented as of this encounter Plan of Treatment Not on file documented as of this encounter Visit Diagnoses Diagnosis Thoracic or lumbosacral neuritis or radiculitis, unspecified- Primary documented in this encounter Care Teams Straight Truck Driver Relationship Specialty Start Date End Date Madeline Shields DO PCP - General Family Practice 07/02/19 documented as of this encounter
--- NOTE | 2025-07-16 21:05 | XRR_ITS ---
PROCEDURE INFORMATION: Exam: XR Right Foot Exam date and time: 07/16/2025 9:08 PM Age: 64 years old Clinical indication: Injury or trauma; Other: Stubbed RT 1st digit at area of amputation; Blunt trauma; Toes; Right; Prior surgery; Surgery date: 3-7 days post-operative; Surgery type: Amputation of distal portion of RT 1st toe; Additional info: Open wound, previous amputation TECHNIQUE: Imaging protocol: Radiologic exam of the right foot. Views: 3 or more views. COMPARISON: CR XR foot RT min 3V* [id number] 06/08/2025 11:37 AM FINDINGS: Bones/joints: Patient is status post amputation at the distal interphalangeal joint space of the right 1st digit. At the amputation site there is no bony destruction or bony fracture. There is no radiological osteomyelitis. There is what appears to be an old fracture deformity proximal aspect proximal phalanx right 5th toe similar compared to prior exam Soft tissues: There are no soft tissue foreign bodies. XR/XR foot RT min 3V* [id number] IMPRESSION: No findings present to suggest radiological osteomyelitis or acute fracture. Patient is status post amputation along the distal interphalangeal joint space of the right 1st toe
[2025-07-16] MEDS: HYDROcodone-acetaminophen 10-325 mg Tablet 1 TAB PO (21:38)
[2025-07-16] MEDS: ondansetron hcl ODT 4 mg Tab PO (21:38)
[2025-07-16 21:40] VITALS: BP 164/98; PULSE 79; O2SAT 94
--- NOTE | 2025-07-16 21:49 | W.ED.EXTPRO ---
HPI - Extremity Problem General: Chief complaint: Extremity Injury, Lower Stated complaint: Rt foot rt toe, was amputated open and bleeding Time Seen by Provider: 07/16/25 21:04 History of Present Illness: Patient is a 64-year-old gentleman with DM, HTN, HLD that presented to the emergency room after he bumped his right big toe on the bed frame today. He is very compliant about wearing his hard shoe, however today he was changing his close, and accidentally bumped his big toe. His shoe is only off briefly to change his close. He had a sore area that he noted after the sutures were removed, however this area has opened, and has association with pain. This occurred just a few hours prior to arrival. There has been no fever, redness, or other changes in this amount of time. Patient did attempt to take baclofen, and tramadol, however continues to have pain. Associated symptoms: Deny chest pain or fever(s) Related Data Home Medications ?Medication ?Instructions ?Recorded ?Confirmed aspirin 81 mg tablet,delayed 81 mg PO DAILY@0900 02/16/21 07/14/25 release Vitamin D3 1 cap PO DAILY 02/22/21 07/14/25 empagliflozin 25 mg tablet 25 mg PO DAILY@09 02/22/21 07/14/25 (Jardiance) fluticasone propionate 50 1 spray intranasal DAILY PRN Runny 07/19/21 07/14/25 mcg/actuation nasal Nose spray,suspension (Allergy Relief (fluticasone)) Lantus U-100 Insulin 40 units SUBCUT DAILY 03/09/22 07/14/25 baclofen 20 mg tablet 20 mg PO TID 06/13/22 07/14/25 duloxetine 60 mg capsule,delayed 60 mg PO DAILY pain 06/13/22 07/14/25 release Vitamin B-12 1 cap PO DAILY 11/01/22 07/14/25 coenzyme Q10 100 mg chewable tablet 100 mg PO DAILY 07/19/23 07/14/25 lancets (Accu-Chek Softclix #100 ea 07/01/24 07/14/25 Lancets) metformin 500 mg tablet,extended 500 mg PO DAILY 07/01/24 07/14/25 release 24 hr pen needle, diabetic 31 gauge x #1,200 ea 07/01/24 07/14/25 5/16 (BD Ultra-Fine Short Pen Needle) semaglutide 0.25 mg or 0.5 mg (2 0.25 mg SUBCUT ONCE 07/01/24 07/14/25 mg/1.5 mL) subcutaneous pen injector (Ozempic) sucralfate 100 mg/mL oral 100 mg PO PRN PRN Acid Reflux 07/01/24 07/14/25 suspension lamotrigine 25 mg tablet 25 mg PO BID 08/04/24 07/14/25 pregabalin 75 mg capsule 75 mg PO TID 08/04/24 07/14/25 folic acid 1 mg tablet 1 mg PO DAILY 12/24/24 07/14/25 ferrous sulfate 325 mg (65 mg 325 mg PO BID 01/30/25 07/14/25 iron) tablet (FeroSul) Potassium PO 03/05/25 07/14/25 bupropion HCl 75 mg tablet 75 mg PO TID 04/28/25 07/14/25 Previous Rx's ?Medication ?Instructions ?Recorded pen needle, diabetic 29 gauge x #50 ea 12/22/1910/23 (Comfort EZ Pen [place]) albuterol sulfate 90 mcg/actuation 2 puff inhalation Q6H PRN 01/16/20 aerosol inhaler (ProAir HFA) Shortness Of Breath #8.5 grams blood-glucose meter (OneTouch 08/26/21 Ultra2 Meter) lancets 30 gauge (OneTouch Delica #100 ea 08/26/21 Lancets) blood sugar diagnostic (OneTouch #300 ea 08/29/21 Ultra Test strips) tamsulosin 0.4 mg capsule 0.4 mg PO BID #60 caps 09/30/21 furosemide 20 mg tablet (Lasix) 20 mg PO DAILY PRN Edema #90 tabs 10/31/21 azelastine 137 mcg (0.1 %) nasal 2 spray intranasal BID Runny Nose 01/17/22 spray 30 days #30 mL mupirocin 2 % topical ointment 1 applic topical BID #22 grams 07/14/22 fluticasone fur. 100 mcg-umeclid 1 inh inhalation DAILY #60 ea 01/19/23 62.5 mcg-vilant 25 mcg inhalat.powder (Trelegy Ellipta) Diabetic shoes with 3 pairs of #1 ea 04/17/23 inserts atorvastatin 40 mg tablet 40 mg PO BEDTIME@2100 #90 tabs 10/24/23 Diabetic Shoes 3 x inserts #1 ea 02/03/25 diabetic shoes with 3 inserts #1 ea 02/03/25 celecoxib 100 mg capsule (Celebrex) 100 mg PO BID PRN pain #180 caps 03/02/25 diclofenac sodium 1 % topical gel 4 g topical QID #100 grams 03/02/25 tramadol 100 mg tablet 100 mg PO Q6H PRN pain #20 tabs 06/15/25 tramadol 50 mg tablet See Rx Instructions PO Q6H PRN 06/17/25 pain #28 tabs nitroglycerin 2 % transdermal See Rx Instructions .Route 07/14/25 ointment (Nitro-Bid) .COMPLEX #30 grams doxycycline hyclate 100 mg capsule 100 mg PO BID 10 days #20 caps 07/16/25 Allergies Allergy/AdvReac Type Severity Reaction Status Date / Time amitriptyline Allergy ALGY-Conges Verified 07/14/25 10:34 sonia temazepam Allergy ALGY-Conges Verified 07/14/25 10:34 sonia codeine AdvReac ADR-Gastrointestinal Verified 07/14/25 10:34 Upset oxycodone AdvReac ADR-Gastrointestinal Verified 07/14/25 10:34 Upset Review of Systems Const: Denies: fever(s) or chills Eyes: Denies: change in vision or blurry vision Card: Denies: chest pain or dyspnea on exertion Resp: Denies: dyspnea, productive cough or wheezing GI: Denies: abdominal pain, nausea or vomiting : Denies: flank pain or difficulty urinating Musc: Reports: extremity pain (right big toe pain ) Skin/Breast: Denies: changes in skin color or dry skin Neuro: Denies: numbness in extremities or weakness in extremities Psych: Denies: anxiety Sudeep/Lymph: Denies: easy bruising or easy bleeding [facility] ED PFSH: Medical History (Updated 07/16/25 @ 21:50 by KENDALL Bronson) Primary osteoarthritis of knees, bilateral Degenerative joint disease of spine Smoker unmotivated to quit PAD (peripheral artery disease) NSTEMI (non-ST elevated myocardial infarction) Chronic neck and back pain Heart failure with preserved ejection fraction Echo 12/04/20 EF 55% Allergic rhinosinusitis Neurogenic bladder Iron deficiency anemia Vitamin D deficiency Dyslipidemia COPD, moderate Controlled type 2 diabetes mellitus, without long-term current use of insulin Essential (primary) hypertension Hypothyroidism, unspecified Gastritis Surgical History H/O oral surgery Teeth extracted H/O circumcision H/O colonoscopy 11/20/2016 H/O esophagogastroduodenoscopy 2015 History of back surgery Lumbar laminectomy x 2 Family History Father Diabetes Stroke Bleeding disorder Mother Diabetes Cancer SKIN Other CAD (coronary artery disease) Lung disease Denies family history of Anesthesia complication Social History Smoking and tobacco/nicotine status: current every day tobacco/nicotine user cigarettes Packs smoked per day: 0.25 Years cigarettes smoked: 45 [ Other cigarette details: started at age 10 years, smoked 1ppd until 51 years] Quit status (tobacco/nicotine): has tried quititng Alcohol intake: never Substance/Drug Use: never Lives independently: Yes Household members: spouse Marital status: Current occupational status: disabled Do you think of yourself as: Straight/Heterosexual Current gender identity: Male Physical Exam Const: COMMON NORMALS: no acute distress, average body habitus, patient oriented x3, no limitations, healthy appearing and alert HENMT: COMMON NORMALS: normocephalic and atraumatic HEAD & SCALP: normocephalic and atraumatic Neck/C-Spine: COMMON NORMALS: full ROM and no lymphadenopathy Lymph: LYMPHATIC: no lymphadenopathy noted Chest: COMMONS NORMALS: normal inspection of the chest and normal palpation of entire chest wall Resp: COMMON NORMALS: normal respiratory effort, No retractions and clear to auscultation bilaterally AUSCULTATION: clear to auscultation bilaterally Cardio: COMMON NORMALS: regular rate and regular rhythm RATE: regular rate RHYTHM: regular rhythm GI: COMMON NORMALS: Normal to inspection, nondistended, normoactive bowel sounds present, Soft to palpation, non-tender and No hepatosplenomegaly present PALPATION: Yes Soft to palpation and Yes No hepatosplenomegaly present : COMMON NORMALS: Yes no CVA tenderness BLADDER/KIDNEY EXAM: Yes no CVA tenderness Back/Pelvis: COMMON NORMALS: no CVA tenderness Extremity: COMMON NORMALS: full ROM and capillary refill normal NARRATIVE EXTREMITY EXAM: Small open wide area along the incision mainly on the lateral side, with overall brown to the edge of the skin without redness. No red streaking, or drainage. RIGHT LOWER EXTREMITY: Yes foot & digits (See narrative above. Pedal pulses present.) Neuro: COMMON NORMALS: patient oriented x3 SENSORIUM/ORIENTATION: Yes alert Psych: COMMON NORMALS: mental status grossly normal, Normal thought process present and cooperative THOUGHT PROCESS: Normal thought process present Skin: OTHER: see above Course Consultations: Consultation #1: Discussed with Dr. Marks. Antibiotics, follow-up in the office. No suturing. Vital Signs: Vital signs: Vital Signs Temperature 98.2 F 07/16/25 20:52 Pulse Rate 87 07/16/25 22:23 Respiratory Rate 16 07/16/25 20:52 Blood Pressure 173/97 07/16/25 22:23 Pulse Oximetry 96 07/16/25 22:23 Oxygen Delivery Me thod Room Air 07/16/25 22:17 MDM - Extremity (Nontraumatic) Medical Decision Making Patient is a 64-year-old gentleman that bumped the bed frame today, and had increasing pain, an open area of his right great toe where he had previous amputation on 06/15. He has not had any redness, or fevers. He states when the sutures were taken out, there was a small open wound area. I discussed the case with Dr. Marks on-call for Dr. Hollins's office, that recommends antibiotics, and follow-up in the office. Patient/ state understanding, and will call tomorrow for further follow-up Medical Records I reviewed the patient's medical records. Lab Data Radiology Impressions Foot X-Ray 07/16/25 21:05 IMPRESSION: No findings present to suggest radiological osteomyelitis or acute fracture. Patient is status post amputation along the distal interphalangeal joint space of the right 1st toe XR interpretation done by ED provider, pending radiology final review ED provider radiology interpretation(s): No acute findings on my view Discharge Plan Discharge Patient Disposition: Home Clinical Impression: Open wound of toe of right foot Condition: Stable Prescriptions: New doxycycline hyclate 100 mg capsule 100 mg PO BID 10 Days Qty: 20 0RF No Action furosemide [Lasix] 20 mg tablet 20 mg PO DAILY PRN (Reason: Edema) Qty: 90 3RF fluticasone propionate [Allergy Relief (fluticasone)] 50 mcg/actuation spray,suspension 1 spray intranasal DAILY PRN (Reason: Runny Nose) Rx Instructions: administer into each nostril azelastine 137 mcg (0.1 %) aerosol,spray 2 spray INTRANASAL BID 30 Days Qty: 30 6RF Rx Instructions: administer into each nostril (DME) Diabetic shoes with 3 pairs of inserts See Rx Instructions .Route .MEDSUPPLY Qty: 1 0RF Rx Instructions: As directed Ozempic 0.25 mg or 0.5 mg(2 mg/1.5 mL) pen injector 0.25 mg SUBCUT ONCE celecoxib [Celebrex] 100 mg capsule 100 mg PO BID PRN (Reason: pain) Qty: 180 0RF Rx Instructions: Hold medications if any stomach upset, increased heartburn or belly pain occurs. diclofenac sodium 1 % gel 4 g topical QID Qty: 100 0RF Rx Instructions: apply to single knee, ankle, foot; for foot includes sole/toes/top of foot baclofen 20 mg tablet 20 mg PO TID duloxetine 60 mg capsule,delayed release(DR/EC) 60 mg PO DAILY Vitamin B-12 1 cap PO DAILY Trelegy Ellipta 100-62.5-25 mcg blister with device 1 inh inhalation DAILY Qty: 60 3RF coenzyme Q10 100 mg tablet,chewable 100 mg PO DAILY lamotrigine 25 mg tablet 25 mg PO BID metformin 500 mg tablet extended release 24 hr 500 mg PO DAILY sucralfate 100 mg/mL suspension 100 mg PO PRN PRN (Reason: Acid Reflux) (DME) lancets [Accu-Chek Softclix Lancets] Misc See Rx Instructions .ROUTE .MEDSUPPLY Qty: 100 Rx Instructions: As directed (DME) pen needle, diabetic [BD Ultra-Fine Short Pen Needle] 31 gauge x 5/16 needle See Rx Instructions .ROUTE .MEDSUPPLY Qty: 1200 Rx Instructions: As directed pregabalin 75 mg capsule 75 mg PO TID Potassium PO folic acid 1 mg tablet 1 mg PO DAILY ferrous sulfate [FeroSul] 325 mg (65 mg iron) tablet 325 mg PO BID (DME) diabetic shoes with 3 inserts See Rx Instructions .Route .MEDSUPPLY Qty: 1 0RF Rx Instructions: As directed to [facility] ([facility]) Diabetic Shoes 3 x inserts See Rx Instructions .Route .MEDSUPPLY Qty: 1 0RF Rx Instructions: As directed by [facility] bupropion HCl 75 mg tablet 75 mg PO TID Rx Instructions: administer 6 hours apart nitroglycerin [Nitro-Bid] 2 % ointment See Rx Instructions .ROUTE .COMPLEX Qty: 30 0RF Dose Instruction: APPLY 0.5INCH TOPICALLY TWICE DAILY Rx Instructions: APPLY 0.5INCH TOPICALLY TWICE DAILY (DME) pen needle, diabetic [Comfort EZ Pen [place]] 29 gauge x 1/2 needle See Rx Instructions .ROUTE .MEDSUPPLY Qty: 50 2RF Rx Instructions: As directed for Novalog and Levemir albuterol sulfate [ProAir HFA] 90 mcg/actuation HFA aerosol inhaler 2 puff INHALATION Q6H PRN (Reason: Shortness Of Breath) Qty: 8.5 0RF ([facility]) blood-glucose meter [OneTouch Ultra2 Meter] Misc See Rx Instructions .ROUTE .MEDSUPPLY 5RF Rx Instructions: FOUR DAILY ([facility]) lancets [OneTouch Delica Lancets] 30 gauge misc See Rx Instructions .Route Qty: 100 0RF Rx Instructions: As directed ([facility]) OneTouch Ultra Test Strip See Rx Instructions .ROUTE .MEDSUPPLY Qty: 300 3RF Rx Instructions: use 3 times daily in one touch meter 90 day supply tamsulosin 0.4 mg capsule 0.4 mg PO BID Qty: 60 12RF mupirocin 2 % ointment 1 applic topical BID Qty: 22 1RF Rx Instructions: Apply to affected area(s) until healed atorvastatin 40 mg tablet 40 mg PO BEDTIME@2100 Qty: 90 3RF tramadol 50 mg tablet See Rx Instructions PO Q6H PRN (Reason: pain) Qty: 28 0RF Rx Instructions: Take 1-2 tabs orally every 6 hours PRN; Lantus U-100 Insulin 44 units pen injector 40 units SUBCUT DAILY aspirin 81 mg tablet,delayed release (DR/EC) 81 mg PO DAILY@0900 Jardiance 25 mg tablet 25 mg PO DAILY@09 Vitamin D3 1 cap PO DAILY tramadol 100 mg tablet 100 mg PO Q6H PRN (Reason: pain) Qty: 20 0RF Discharge Orders: Discharge ED (Routine); Ordered 07/16/25 Ordered By: Tressa Valdez Referrals: Tammi Ames MD [Primary Care Provider, Internal Medicine] Cory Marks DPM [Physician, Podiatry] Discharge Diet: Usual diet and Diabetic Discharge Activity: Limit activity as instructed Patient Instructions: Puncture Wound in the Foot (ED), Patient Portal & Asa Instructions Activity Restrictions/Additional Instructions: - Keep being a great patient. Wear your shoe as instructed. - Your antibiotics were sent to the pharmacy. Make sure you eat a little bit before you take them or you will believe you are allergic to them, however this is not an allergy but an intolerance if you do not eat. - Obtain your antibiotics in the morning and start in the morning - Call Dr. Hollins's office for follow-up. The clinic will get you in. Dr. Marks does know about you tonight. He was on-call and therefore the referral is in his name. Follow the directions from the office. -Return to ED with worsening redness or streaking, or drainage, or smell, or fever greater than 100.4 ?F - Your x-ray is still pending, and will be read at a different time. You are welcome to check back later to get the results, or Dr. Hollins/ can go over it with you. Print Language: Kyrgyz Coding Level of Care Code ED Manuscript Editor for Jens Boone
[2025-07-16 22:17] VITALS: PULSE 94; O2SAT 94
[2025-07-16 22:23] VITALS: BP 173/97; PULSE 87; O2SAT 96
== END 2025-07-16 22:25 | disposition home or self-care (01) ==
PROVIDERS: Emergency Provider Physician Assistant; PCP Internal Medicine
DX: T81.31XA Disruption of external operation (surgical) wound, not elsewhere classified, initial encounter (principal); Z89.411 Acquired absence of right great toe; W22.03XA Walked into furniture, initial encounter; J44.9 Chronic obstructive pulmonary disease, unspecified; E78.5 Hyperlipidemia, unspecified; E11.9 Type 2 diabetes mellitus without complications; I11.0 Hypertensive heart disease with heart failure; I50.30 Unspecified diastolic (congestive) heart failure; F17.210 Nicotine dependence, cigarettes, uncomplicated
CPT/HCPCS: 73630; 99284; J9999; Q0162

== ENCOUNTER → 2025-07-20 14:33 | Outpatient (BNVA) | payer MEDICARE, SELFPAY | PROVIDERS: PCP Internal Medicine; Visit Provider Podiatrist Foot & Ankle Surgery | DX: T81.30XA Disruption of wound, unspecified, initial encounter (principal); Y83.8 Other surgical procedures as the cause of abnormal reaction of the patient, or of later complication, without mention of misadventure at the time of the procedure; L08.9 Local infection of the skin and subcutaneous tissue, unspecified; E11.8 Type 2 diabetes mellitus with unspecified complications; I73.9 Peripheral vascular disease, unspecified; Z79.4 Long term (current) use of insulin; Z79.84 Long term (current) use of oral hypoglycemic drugs; Z79.85 Long-term (current) use of injectable non-insulin antidiabetic drugs | CPT/HCPCS: 99213 ==

== ENCOUNTER → 2025-07-27 13:40 | Outpatient (BNVA) | payer MEDICARE, SELFPAY | PROVIDERS: PCP Internal Medicine; Visit Provider Podiatrist Foot & Ankle Surgery | DX: E11.621 Type 2 diabetes mellitus with foot ulcer (principal); L97.518 Non-pressure chronic ulcer of other part of right foot with other specified severity; L08.9 Local infection of the skin and subcutaneous tissue, unspecified; E11.8 Type 2 diabetes mellitus with unspecified complications; E11.9 Type 2 diabetes mellitus without complications; I73.9 Peripheral vascular disease, unspecified; Z79.4 Long term (current) use of insulin; Z79.84 Long term (current) use of oral hypoglycemic drugs; Z79.85 Long-term (current) use of injectable non-insulin antidiabetic drugs | CPT/HCPCS: 99213 ==

== ENCOUNTER → 2025-08-05 14:03 | Outpatient (BNVA) | payer MEDICARE, SELFPAY | PROVIDERS: PCP Internal Medicine; Visit Provider Nurse Practitioner Family | DX: R20.8 Other disturbances of skin sensation (principal); R23.8 Other skin changes; L23.9 Allergic contact dermatitis, unspecified cause; Z86.006 Personal history of melanoma in-situ; Z08 Encounter for follow-up examination after completed treatment for malignant neoplasm; Z87.2 Personal history of diseases of the skin and subcutaneous tissue; A63.0 Anogenital (venereal) warts | CPT/HCPCS: 99213 ==

== ENCOUNTER → 2025-08-25 13:13 | Outpatient (BNVA) | payer MEDICARE, SELFPAY | PROVIDERS: PCP Internal Medicine; Visit Provider Nurse Practitioner Family | DX: R20.8 Other disturbances of skin sensation (principal); R23.8 Other skin changes; Z86.006 Personal history of melanoma in-situ; Z08 Encounter for follow-up examination after completed treatment for malignant neoplasm; A63.0 Anogenital (venereal) warts | CPT/HCPCS: 99213 ==

== ENCOUNTER → 2025-09-07 14:05 | Outpatient (BNVA) | payer MEDICARE, SELFPAY | PROVIDERS: PCP Internal Medicine; Visit Provider Podiatrist Foot & Ankle Surgery | DX: E11.8 Type 2 diabetes mellitus with unspecified complications (principal); L60.3 Nail dystrophy; L84 Corns and callosities; Z98.890 Other specified postprocedural states; L08.9 Local infection of the skin and subcutaneous tissue, unspecified; I73.9 Peripheral vascular disease, unspecified; Z79.4 Long term (current) use of insulin; Z79.84 Long term (current) use of oral hypoglycemic drugs; Z79.85 Long-term (current) use of injectable non-insulin antidiabetic drugs | CPT/HCPCS: 11056; 11721; 99213 ==

== ENCOUNTER → 2025-09-11 09:31 | Outpatient (BNVA) | payer MEDICARE, SELFPAY | PROVIDERS: PCP Internal Medicine; Visit Provider Specialist | DX: M17.11 Unilateral primary osteoarthritis, right knee (principal) | CPT/HCPCS: 20610; J1100; J2795; J3301; J9999 ==

== ENCOUNTER 2025-10-10 06:00 | Emergency (ER) | payer MEDICARE, SELFPAY ==
[2025-10-10 06:03] VITALS: BP 171/96; PULSE 101; RESP 16; TEMP 36.8; O2SAT 96; BMI 26.6
--- OUTSIDE RECORDS SUMMARY | 2025-10-10 06:08 | XMS_ITS | Encounter Summary ---
Author Organization [facility] Address [address] [place] [address] Care Team Providers Care Outside Barrel Lathe Operator Name Role Phone Madeline Shields DO Primary Care Provider +1- [phone] Encounter Details Date Type Department Care Team (Latest Contact Info) Description 03/15/2001 [facility] [address] [place] [address] Alok Rhoades MD NO ADDRESS ON FILE Lumbago (Primary Dx) Social History Tobacco Use Types Packs/Day Years Used Date Smoking Tobacco: Never Assessed Sex and Gender Information Value Date Recorded Sex Assigned at Not on file 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
--- OUTSIDE RECORDS SUMMARY | 2025-10-10 06:08 | XMS_ITS | Encounter Summary ---
Author Organization [facility] Address [address] [place] [address] Care Team Providers Care Tool Checker Name Role Phone Madeline Shields DO Primary Care Provider +1- [phone] Encounter Details Date Type Department Care Team (Latest Contact Info) Description 11/19/2001 [facility]patient [facility] [address] [place] [address] Alok Rhoades MD NO ADDRESS ON FILE LUMBOSACRAL NEURITIS NOS (Primary Dx) Social History Tobacco Use Types Packs/Day Years Used Date Smoking Tobacco: Never Assessed Sex and Gender Information Value Date Recorded Sex Assigned at Not on file 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
--- OUTSIDE RECORDS SUMMARY | 2025-10-10 06:08 | XMS_ITS | Encounter Summary ---
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
--- OUTSIDE RECORDS SUMMARY | 2025-10-10 06:08 | XMS_ITS | Encounter Summary ---
Author Organization [facility] Address [address] 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
--- OUTSIDE RECORDS SUMMARY | 2025-10-10 06:08 | XMS_ITS | Encounter Summary ---
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
--- OUTSIDE RECORDS SUMMARY | 2025-10-10 06:08 | XMS_ITS | Encounter Summary ---
Author Organization [facility] Address [address] [place] [address] Care Team Providers Care Professor Of Practice Name Role Phone Madeline Shields DO Primary Care Provider +1- [phone] Encounter Details Date Type Department Care Team (Latest Contact Info) Description 02/04/2002 Outpatient [facility] [address] [place] [address] Alok Rhoades MD NO ADDRESS ON FILE POSTLAMINECT SYND-LUMBAR (Primary Dx) Social History Tobacco Use Types Packs/Day Years Used Date Smoking Tobacco: Never Assessed Sex and Gender Information Value Date Recorded Sex Assigned at Not on file 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
--- OUTSIDE RECORDS SUMMARY | 2025-10-10 06:08 | XMS_ITS | Encounter Summary ---
Author Organization [facility] Address [address] [facility] Attn: [place] [address] Care Team Providers Care Project Management Professional Name Role Phone Madeline Shields DO Primary Care Provider +1- [phone] Encounter Details Date Type Department Care Team (Late st Contact Info) Description 02/04/2002 Outpatient Historical Alok Rhoades MD NO ADDRESS ON FILE Social History Tobacco Use Types Packs/Day Years Used Date Smoking Tobacco: Never Assessed Sex and Gender Information Value Date Recorded Sex Assigned at Not on file 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
--- OUTSIDE RECORDS SUMMARY | 2025-10-10 06:08 | XMS_ITS | Encounter Summary ---
Author Organization [facility] Address [address] [place] [address] Care Team Providers Care Cone Examiner Name Role Phone Madeline Shields DO Primary Care Provider +1- [phone] Encounter Details Date Type Department Care Team (Latest Contact Info) Description 06/05/2001 Outpatient [facility] [address] [place] [address] Alok Rhoades MD NO ADDRESS ON FILE Thoracic or lumbosacral neuritis or radiculitis, unspecified (Primary Dx) Social History Tobacco Use Types Packs/Day Years Used Date Smoking Tobacco: Never Assessed Sex and Gender Information Value Date Recorded Sex Assigned at Not on file 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
--- OUTSIDE RECORDS SUMMARY | 2025-10-10 06:08 | XMS_ITS | Encounter Summary ---
Author Organization [facility] Address [address] [facility] Attn: [place] [address] Care Team Providers Care Computer Engineering Professor Name Role Phone Madeline Shields DO Primary Care Provider +1- [phone] Encounter Details Date Type Department Care Team (Late st Contact Info) Description 11/19/2001 Outpatient Historical Alok Rhoades MD NO ADDRESS ON FILE Social History Tobacco Use Types Packs/Day Years Used Date Smoking Tobacco: Never Assessed Sex and Gender Information Value Date Recorded Sex Assigned at Not on file 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
--- OUTSIDE RECORDS SUMMARY | 2025-10-10 06:08 | XMS_ITS | Encounter Summary ---
Author Organization 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
--- OUTSIDE RECORDS SUMMARY | 2025-10-10 06:08 | XMS_ITS | Encounter Summary ---
Author Organization [facility] Address [address] [place] [address] Care Team Providers Care Mysql Dba Name Role Phone Madeline Shields DO Primary Care Provider +1- [phone] Encounter Details Date Type Department Care Team (Latest Contact Info) Description 01/04/2001 Outpatient [facility] [address] [place] [address] Alok Rhoades MD NO ADDRESS ON FILE Postlaminectomy syndrome, lumbar region (Primary Dx) Social History Tobacco Use Types Packs/Day Years Used Date Smoking Tobacco: Never Assessed Sex and Gender Information Value Date Recorded Sex Assigned at Not on file 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
--- OUTSIDE RECORDS SUMMARY | 2025-10-10 06:08 | XMS_ITS | Encounter Summary ---
Author Organization [facility] Address [address] [place] [address] Care Team Providers Care Network Services Project Manager Name Role Phone Madeline Shields DO Primary Care Provider +1- [phone] Encounter Details Date Type Department Care Team (Latest Contact Info) Description 08/23/2001 Out[facility] [address] [place] [address] Alok Rhoades MD NO ADDRESS ON FILE LUMBAGO (Primary Dx) Social History Tobacco Use Types Packs/Day Years Used Date Smoking Tobacco: Never Assessed Sex and Gender Information Value Date Recorded Sex Assigned at Not on file 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
--- OUTSIDE RECORDS SUMMARY | 2025-10-10 06:08 | XMS_ITS | Encounter Summary ---
Author Organization [facility] Address [address] [place] [address] Care Team Providers Care Migratory Worker Name Role Phone Madeline Shields DO Primary Care Provider +1- [phone] Encounter Details Date Type Department Care Team (Latest Contact Info) Description 11/04/2002 Outpatient Historical [facility] [address] [place] [address] Alok Rhoades MD NO ADDRESS ON FILE POSTLAMINECT SYND-LUMBAR (Primary Dx) Social History Tobacco Use Types Packs/Day Years Used Date Smoking Tobacco: Never Assessed Sex and Gender Information Value Date Recorded Sex Assigned at Not on file 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
--- NOTE | 2025-10-10 06:09 | ECG_ITS ---
[facility] 2025-10[facility]10 Pat Name: Troy Goode Department: Room: Gender: Male Child Nutrition Assistant: : 1960 Requested By: Margaret Barba Order Number: [id number] Rossy MD: SAMUEL ORELLANA Measurements Intervals [place] Rate: 91 P: 62 CA: 195 QRS: -74 QRSD: 130 T: 60 QT: 335 QTc: 414 Interpretive Statements SINUS RHYTHM INDETERMINATE AXIS MODERATE INTRAVENTRICULAR CONDUCTION DELAY [110+ ms QRS DURATION] EARLY REPOLARIZATION [ST ELEVATION WITH NORMALLY INFLECTED T-WAVE] Compared to ECG 12/01/2024 11:14:20 Intraventricular conduction delay now present Early repolarization now present Sinus tachycardia no longer present Incomplete right bundle-branch block no longer present Left posterior fascicular block no longer present ST (T wave) deviation no longer present Electronically Signed On 10-13-2025 12:07:20 INSOLE CEMENTER by SAMUEL ORELLANA [id number] [id number]
--- NOTE | 2025-10-10 06:09 | XRR_ITS ---
PROCEDURE INFORMATION: Exam: XR Chest Exam date and time: 10/10/2025 6:16 AM Age: 64 years old Clinical indication: Shortness of breath; C/O SOB TECHNIQUE: Imaging protocol: Radiologic exam of the chest. Views: 1 view. COMPARISON: CT lung screening [id number] 04/30/2025 4:53 PM FINDINGS: Lungs: Mild emphysematous changes. No consolidation. Pleural spaces: Unremarkable. No pleural effusion. No pneumothorax. Heart/Mediastinum: Unremarkable. No cardiomegaly. Bones/joints: Unremarkable. XR/XR chest 1V portable [id number] IMPRESSION: No acute findings.
--- OUTSIDE RECORDS SUMMARY | 2025-10-10 06:09 | XMS_ITS | Encounter Summary ---
Author Organization [facility] Address [address] [place] [address] Care Team Providers Care Control Room Technician Name Role Phone Madeline Shields DO Primary Care Provider +1- [phone] Encounter Details Date Type Department Care Team (Latest Contact Info) Description 02/12/[address] 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
--- OUTSIDE RECORDS SUMMARY | 2025-10-10 06:09 | XMS_ITS | Encounter Summary ---
Author Organization [facility] Address [address] [place] [address] Care Team Providers Care Feather Trimmer Name Role Phone Madeline Shields DO Primary Care Provider +1- [phone] Encounter Details Date Type Department Care Team (Latest Contact Info) Description 05/02/2002 Outpatient Historical [facility] [address] [place] [address] Alok Rhoades MD NO ADDRESS ON FILE LUMBOSACRAL NEURITIS NOS (Primary Dx) Social History Tobacco Use Types Packs/Day Years Used Date Smoking Tobacco: Never Assessed Sex and Gender Information Value Date Recorded Sex Assigned at Not on file 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
--- OUTSIDE RECORDS SUMMARY | 2025-10-10 06:09 | XMS_ITS | Encounter Summary ---
Author Organization [facility] Address [address] [place] [address] Care Team Providers Care Currency Counter Name Role Phone Madeline Shields DO Primary Care Provider +1- [phone] Encounter Details Date Type Department Care Team (Latest Contact Info) Description 07/29/2002 Outpatient Historical [facility] [address] [place] [address] Alok Rhoades MD NO ADDRESS ON FILE LUMBAGO (Primary Dx) Social History Tobacco Use Types Packs/Day Years Used Date Smoking Tobacco: Never Assessed Sex and Gender Information Value Date Recorded Sex Assigned at Not on file 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
--- OUTSIDE RECORDS SUMMARY | 2025-10-10 06:09 | XMS_ITS | Encounter Summary ---
Author Organization [facility] Address [address] [facility] Attn: [place] [address] Care Team Providers Care Computer Systems Technician Name Role Phone Madeline Shields DO Primary Care Provider +1- [phone] Encounter Details Date Type Department Care Team (Late st Contact Info) Description 12/27/2000 Outpatient Historical Alok Rhoades MD NO ADDRESS ON FILE Social History Tobacco Use Types Packs/Day Years Used Date Smoking Tobacco: Never Assessed Sex and Gender Information Value Date Recorded Sex Assigned at Not on file 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
--- OUTSIDE RECORDS SUMMARY | 2025-10-10 06:09 | XMS_ITS | Patient Health Record ---
Author Organization [facility] Address [address] [place] [address] Care Team Providers Care Medical Technologist Microbiology Name Role Phone DR. Tammi Ames Primary Care Provider Zoe Wagner Unavailable [phone] Adis Honeycutt Unavailable [phone] Allergies Allergen (clinical drug ingredient) Drug/Non Drug Allergy documented on EMR Reaction Allergy Type Onset Date Status amitriptyline Amitriptyline Unknown Drug Allergy Active Results Component Value Reference Range Flag Notes Tox Results Reviewed date:10/01/2025 08:00:23 AM Interpretation: Performing Lab: Notes/Report: Tox Results Reviewed date:04/14/2025 02:07:36 PM Interpretation: Performing Lab: Notes/Report: Tox Results Reviewed date:02/17/2025 02:32:00 PM Interpretation: Performing Lab: Notes/Report: Tox Results Reviewed date:06/09/2025 02:55:55 PM Interpretation: Performing Lab: Notes/Report: Urine Drug Screen (cup read) - 20697 Reviewed date:11/20/2024 04:46:14 PM Interpretation: Performing Lab: Notes/Report: OPI + Urine Drug Screen (cup read) - [id number] Reviewed date:04/09/2025 04:05:07 PM Interpretation: Performing Lab: Notes/Report: OPI + Urine Confirmation Panel (in strument) - [id number] Reviewed date:04/14/2025 02:00:29 PM Interpretation: Performing Lab: [...] the U.S. Food and Drug Administration. Pregabalin >53437 <225 ng/mL > This test was developed [...] the U.S. Food and Drug Administration. Urine Drug Screen (cup read) - 51984 Reviewed date:09/25/2025 01:49:13 PM Interpretation:Negative Performing Lab: Notes/Report: Negative Urine Confirmation Panel (in strument) - [id number] Reviewed date:10/01/2025 08:00:23 AM Interpretation: Performing Lab: Notes/Report: 6-Acetylmorphine 0 [...] the U.S. Food and Drug Administration. O-desmethyltramadol 4435 <75 ng/mL H This test was developed [...] the U.S. Food and Drug Administration. Pregabalin >81991 <225 ng/mL > This test was developed [...] by the U.S. Food and Drug Administration. Fluoro Needle For Placement - Spine 50158 Reviewed date:10/29/2024 02:54:17 PM Interpretation: Performing Lab: Notes/Report: Urine Drug Screen (cup read) - 60635 Reviewed date:02/11/2025 03:38:23 PM Interpretation: Performing Lab: Notes/Report: OPI + Urine Confirmation Panel (in strument) - 80031 Reviewed date:02/17/2025 11:03:06 AM Interpretation: Performing Lab: [...] the U.S. Food and Drug Administration. Pregabalin >24616 <225 ng/mL > This test was developed [...] by the U.S. Food and Drug Administration. Pre-Procedure Blood Glucose Test - 49650 Reviewed date:10/28/2024 02:11:19 PM Interpretation:130 Performing Lab: Notes/Report: 130 Urine Drug Screen (cup read) - 39270 Reviewed date:06/04/2025 03:36:11 PM Interpretation: Performing Lab: Notes/Report: OPI + Urine Confirmation Panel (in strument) - 08574 Reviewed date:06/09/2025 01:25:25 PM Interpretation: Performing Lab: [...] the U.S. Food and Drug Administration. Pregabalin >74720 <225 ng/mL > This test was developed [...] by the U.S. Food and Drug Administration. Reason For Referral No Information Medications Medication SIG (Take, Route, Frequency, Duration) Notes Start Date End Date Status clonazePAM *Pick strength-form from [facility] for eRX* Not-Taking Baclofen 20 MG Tablet 1 tablet with food or milk Orally Twice a day; Duration: 30 days As needed Fill 30 days from previous RX 09/25/2025 Active DULoxetine HCl 30 MG Capsule Delayed Release Particles 1 capsule Orally twice a day; Duration: 30 days Fill 30 days from previous Rx 09/25/2025 Active Finasteride 5 MG Tablet 1 tablet Orally daily at bedtime Active traMADol HCl 50 MG Tablet 1 tablet Orally every 8 hours; Duration: 30 days As needed Not to exceed 3 per day Fill on 09/25/2025 09/25/2025 Active Meloxicam *Pick strength-form from [facility] for eRX* Active trazodone *Reorder from [facility] [employer] for eRx and Interaction Alerts* Active Lyrica 100 MG Capsule 1 capsule Orally three times a day; Duration: 30 days As needed Fill 30 days from previous RX 09/25/2025 11/24/2025 Active Verapamil *Reorder from [employer] for eRx and Interaction Alerts* Active Atenolol *Pick strength-form from [employer] for eRX* Active Social History Social History Additional Details Category [...] in the past? - No, Smoking - /4 PPD, Smoking status (MU) - Current every day smoker, Working currently? - No Problems Problem Type SNOMED Code ICD Code Onset Dates Problem Status W/U Status Risk Notes Problem Chronic pain due to injury (141028790) Chronic pain due to trauma (G89.21) 04/16/20 Active confirmed Problem Chronic pain syndrome (871363733) Chronic pain syndrome (G89.4) 04/16/20 Active confirmed Problem Degeneration of lumbar intervertebral disc (23275502) Other intervertebral disc degeneration, lumbar region (M51.36) 04/16/20 Active confirmed Problem Cervical radiculopathy (40745201) Radiculopathy, cervical region (M54.12) 04/16/20 Active confirmed Problem Thoracic radiculopathy (61746628) Radiculopathy, thoracic region (M54.14) 04/16/20 Active confirmed Problem Lumbosacral radiculopathy (3687889) Radiculopathy, lumbosacral region (M54.17) 04/16/20 Active confirmed Problem Post-laminectomy syndrome (36514104) Postlaminectomy syndrome, not elsewhere classified (M96.1) 04/16/20 Active confirmed Problem Abnormal gait (99500860) Unspecified abnormalities of gait and mobility (R26.9) 04/16/20 Active confirmed Problem Long-term current use of drug therapy (258360148) Other mcfp (current) drug therapy (Z79.899) Active confirmed Problem Degeneration of intervertebral disc of lumbar region with discogenic back pain (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) Active confirmed Vital Signs Height-cm 170.18 cm 09/25/2025 Weight-kg 74.39 kg 09/25/2025 Height 67.00 in 09/25/2025 Weight 164 lbs 09/25/2025 BMI 25.68 kg/m2 09/25/2025 Procedures Procedure Date Ordered Date Performed Result Body Sit e Epidural, Lumbar/Sacral ([place]), w/ imaging guidance - 18329 10/28/2024 10/28/2024 N/A Epidural, Lumbar/Sacral ([place]), w/ imaging guidance - 32986 09/03/2025 09/03/2025 11-13 Encounters Encounter Location Date Provider Diagnosis [facility] [address] [facility] [address] 10/28/2024 Adis Honeycutt Radiculopathy, lumbosacral region M54.17 [facility] [address] [address] 01/14/2025 Adis Honeycutt Chronic pain due to [...] of gait and mobility R26.9 and Other buttermaker helper (current) drug therapy Z79.899 [facility] [address] [address] 12/18/2024 Zoe Mcelroy Radiculopathy, cervical region M54.12 ; Chronic pain due to trauma G89.21 ; Pain in thoracic spine M54.6 ; Radiculopathy, thoracic region M54.14 ; Degeneration of intervertebral disc of lumbar region with discogenic back pain M51.360 ; Radiculopathy, lumbosacral region M54.17 ; Postlaminectomy syndrome, not elsewhere classified M96.1 ; Unspecified abnormalities of gait and mobility R26.9 and Other buttermaker helper (current) drug therapy Z79.899 [facility] [address] [place] [address] 11/20/2024 Zoe Mcelroy Chronic pain due to trauma G89.21 ; Radiculopathy, cervical region M54.12 ; Pain in thoracic spine M54.6 ; Radiculopathy, thoracic region M54.14 ; Degeneration of intervertebral disc of lumbar region with discogenic back pain M51.360 ; Radiculopathy, lumbosacral region M54.17 ; Postlaminectomy syndrome, not elsewhere classified M96.1 ; Unspecified abnormalities of gait and mobility R26.9 and Other mcfp (current) drug therapy Z79.899 [facility] [address] [address] 09/25/2025 Zoe Mcelroy Chronic pain due to trauma G89.21 ; Radiculopathy, cervical region M54.12 ; Radiculopathy, thoracic region M54.14 ; Degeneration of intervertebral disc of lumbar region with discogenic back pain M51.360 ; Radiculopathy, lumbosacral region M54.17 ; Postlaminectomy syndrome, not elsewhere classified M96.1 ; Unspecified abnormalities of gait and mobility R26.9 ; Pain in thoracic spine M54.6 ; Other buttermaker helper (current) drug therapy Z79.899 and Chronic pain syndrome G89.4 [facility] [address] [address] 08/12/2025 Adis Honeycutt Chronic pain syndrom e G89.4 [...] Pain in thoracic spine M54.6 and Other buttermaker helper (current) drug therapy Z79.899 [facility] [address] [address] 06/04/2025 Zoe Mcelroy Chronic pain syndrom e [...] Pain in thoracic spine M54.6 and Other buttermaker helper (current) drug therapy Z79.899 [facility] [address] [address] 04/09/2025 Zoe Navi Chronic pain syndrom e G89.4 ; Chronic pain due to trauma G89.21 ; Radiculopathy, cervical region M54.12 ; Radiculopathy, thoracic region M54.14 ; Degeneration of intervertebral disc of lumbar region with discogenic back pain M51.360 ; Radiculopathy, lumbosacral region M54.17 ; Postlaminectomy syndrome, not elsewhere classified M96.1 ; Unspecified abnormalities of gait and mobility R26.9 ; Pain in thoracic spine M54.6 and Other mcfp (current) drug therapy Z79.899 [facility] [address] [address] 09/03/2025 Adis Honeycutt Radiculopathy, lumbosacral region M54.17 [facility] [address] [address] 02/11/2025 Adis Honeycutt Chronic pain syndrom e [...] Pain in thoracic spine M54.6 and Other mcfp (current) drug therapy Z79.899 [facility] [address] [place] [address] 04/09/2025 Adis Honeycutt Radiculopathy, lumbosacral region M54.17 and Chronic pain syndrome G89.4 [facility] [address] [place] [address] 01/19/2025 Adis Honeycutt Radiculopathy, lumbosacral region M54.17 [facility] [address] [place] [address] 12/01/2024 Adis Honeycutt [facility] [address] [facility] [place] [address] 11/20/2024 Adis Honeycutt Radiculopathy, lumbosacral region M54.17 [facility] [address] [place] [address] 10/21/2024 Adis Honeycutt [facility] [address] [place] [address] 10/10/2024 Adis Honeycutt Chronic pain syndrom e G89.4 [facility] [address] [place] [address] 09/25/2025 Adis Honeycutt Radiculopathy, lumbosacral region M54.17 and Chronic pain syndrome G89.4 [facility] [address] [place] [address] 06/04/2025 Adis Honeycutt Radiculopathy, lumbosacral region M54.17 and Chronic pain syndrome G89.4 Assessments Encounter Date Diagnosis (ICD Code) Assessment Notes Treatment Notes Treatment Clinical Notes Section Notes 10/10/2024 Chronic pain syndrome (ICD-10 - G89.4) [...] effects are noted. Last UDS and [place] AUTOMOTIVE ELECTRICAL FITTER reviewed today. Patient is advised that best [...] effects are noted. Last UDS and [place] AUTOMOTIVE ELECTRICAL FITTER reviewed today. Patient is advised that best [...] to abide by our urine testing policy. 08/12/2025 Chronic pain syndrome (ICD-10 - G89.4) I had a nice visit with the patient regarding his chronic pain issues. Unfortunately, the patient recently underwent a toe amputation. He appears to be doing reasonably well in his recovery. He expressed interest in repeating a LESI, which is reasonable as long as there is no active infection present. We will proceed with scheduling the procedure in the near future. He continues to find his current pain medication regimen relatively effective overall. We discussed an older UDS which showed a presence of morphine. He reports that he had a hospital ER visit and was given morphine. Otherwise, his pill count and UDS have been consistent with his current treatment regimen. We will continue his medications and Tramadol unchanged. We will follow up thereafter and proceed accordingly. 06/04/2025 Radiculopathy, lumbosacral region (ICD-10 - M54.17) 09/25/2025 Radiculopathy, cervical region (ICD-10 - M54.12) 09/03/2025 Radiculopathy, lumbosacral region (ICD-10 - M54.17) 09/25/2025 Chronic pain due to trauma (ICD-10 - G89.21) 09/25/2025 Radiculopathy, lumbosacral region (ICD-10 - M54.17) 09/25/2025 Chronic pain syndrome (ICD-10 - G89.4) 09/25/2025 Radiculopathy, thoracic region (ICD-10 - M54.14) 08/12/2025 Chronic pain due to trauma (ICD-10 - G89.21) 06/04/2025 Radiculopathy, cervical region (ICD-10 - M54.12) [...] effects are noted. Last UDS and [place] AUTOMOTIVE ELECTRICAL FITTER reviewed today. Patient is advised that best long-term goals include increased activity, core strengthening, proper weight management, coping strategies, avoidance of painful triggers, and targeted interventional therapy. We will see the patient for routine follow up in accordance with all clinic policies. We did remind patient today of current guidelines to decrease opioid when possible. We will continue to stress nonopioid treatment. 11/20/2024 Pain in thoracic spine (ICD-10 - M54.6) 11/20/2024 Radiculopathy, thoracic region (ICD-10 - M54.14) 12/18/2024 Radiculopathy, thoracic region (ICD-10 - M54.14) 01/14/2025 Pain in thoracic spine (ICD-10 - M54.6) 02/11/2025 Radiculopathy, thoracic region (ICD-10 - M54.14) 04/09/2025 Radiculopathy, thoracic region (ICD-10 - M54.14) 06/04/2025 Radiculopathy, thoracic region (ICD-10 - M54.14) 08/12/2025 Radiculopathy, cervical region (ICD-10 - M54.12) 09/25/2025 Degeneration of intervertebral disc of lumbar region with discogenic back pain (ICD-10 - M51.360) 09/25/2025 Radiculopathy, lumbosacral region (ICD-10 - M54.17) 08/12/2025 Radiculopathy, thoracic region (ICD-10 - M54.14) 06/04/2025 [...] discogenic back pain (ICD-10 - M51.360) 11/20/2024 Radiculopathy, lumbosacral region (ICD-10 - M54.17) 12/18/2024 Radiculopathy, lumbosacral region (ICD-10 - M54.17) 01/14/2025 Degeneration of intervertebral disc of lumbar region with discogenic back pain (ICD-10 - M51.360) 02/11/2025 Radiculopathy, lumbosacral region (ICD-10 - M54.17) 04/09/2025 Radiculopathy, lumbosacral region (ICD-10 - M54.17) 06/04/2025 Radiculopathy, lumbosacral region (ICD-10 - M54.17) 09/25/2025 Postlaminectomy syndrome, not elsewhere classified (ICD-10 - M96.1) 08/12/2025 Degeneration of intervertebral disc of lumbar region with discogenic back pain (ICD-10 - M51.360) 09/25/2025 Unspecified abnormalities of gait and mobility (ICD-10 - R26.9) 06/04/2025 Postlaminectomy syndrome, not elsewhere classified (ICD-10 - M96.1) 08/12/2025 Radiculopathy, lumbosacral region (ICD-10 - M54.17) RECOMMEND THERAPEUTIC LUMBAR EPIDURAL STEROID INJECTION, levels L3-4 The patient reports overall 50% improvement in function and decrease in pain for greater than one month from previous diagnostic NAVYA. The patient also reports improvement in tolerance to activities which generally cause pain. Based on the results of previous diagnostic NAVYA, a therapeutic NAVYA is recommended. Expectation from a successful therapeutic epidural steroid injection is at least 50-70% relief of pain from baseline and evidence of improved function for at least six to eight weeks after delivery. The goal of epidural steroid injections is to reduce pain and inflammation, restoring range of motion and, thereby, facilitating progress in more active treatment programs, and avoiding surgery. The procedure and risks were discussed with the patient including but not limited to infection, bleeding, neurological complications, side effects from medications, no change in pain, worsening of pain, or even . We also discussed conservative options, surgical options, and medical management with patient as well. The patient indicates understanding and wishes to proceed with the recommended treatment approach. The patient was given written information about the procedure and all questions were answered. 04/09/2025 Postlaminectomy syndrome, not elsewhere classified (ICD-10 - M96.1) 02/11/2025 Postlaminectomy syndrome, not elsewhere classified (ICD-10 - M96.1) 12/18/2024 Postlaminectomy syndrome, not elsewhere classified (ICD-10 - M96.1) 01/14/2025 Radiculopathy, lumbosacral region (ICD-10 - M54.17) 11/20/2024 Postlaminectomy syndrome, not elsewhere classified (ICD-10 - M96.1) 11/20/2024 Unspecified abnormalities of gait and mobility (ICD-10 - R26.9) 01/14/2025 Postlaminectomy syndrome, not elsewhere classified (ICD-10 - M96.1) 12/18/2024 Unspecified abnormalities of gait and mobility (ICD-10 - R26.9) 02/11/2025 Unspecified abnormalities of gait and mobility (ICD-10 - R26.9) 04/09/2025 Unspecified abnormalities of gait and mobility (ICD-10 - R26.9) 08/12/2025 Postlaminectomy syndrome, not elsewhere classified (ICD-10 - M96.1) 06/04/2025 Unspecified abnormalities of gait and mobility (ICD-10 - R26.9) 09/25/2025 Pain in thoracic spine (ICD-10 - M54.6) 09/25/2025 Other buttermaker helper (current) drug therapy (ICD-10 - Z79.899) 06/04/2025 Pain in thoracic spine (ICD-10 - M54.6) 08/12/2025 Unspecified abnormalities of gait and mobility (ICD-10 - R26.9) 04/09/2025 Pain in thoracic spine (ICD-10 - M54.6) 02/11/2025 Pain in thoracic spine (ICD-10 - M54.6) 12/18/2024 Other buttermaker helper (current) drug therapy (ICD-10 - Z79.899) 01/14/2025 Unspecified abnormalities of gait and mobility (ICD-10 - R26.9) 11/20/2024 Other mcfp (current) drug therapy (ICD-10 - Z79.899) 01/14/2025 Other buttermaker helper (current) drug therapy (ICD-10 - Z79.899) 02/11/2025 Other buttermaker helper (current) drug therapy (ICD-10 - Z79.899) RECOMMEND [...] by our urine testing policy. 04/09/2025 Other buttermaker helper (current) drug therapy (ICD-10 - Z79.899) RECOMMEND [...] to abide by our urine testing policy. 08/12/2025 Pain in thoracic spine (ICD-10 - M54.6) 06/04/2025 Other mcfp (current) drug therapy (ICD-10 - Z79.899) 09/25/2025 Chronic pain syndrome (ICD-10 - G89.4) I had a nice discussion with the patient today regarding his chronic pain complaints. He continues with neck, mid back, lower back pain. He is status post LESI which he reports helped relieve his pain greater than 50% and he is functioning much better overall. He does state he may want to discuss at his next visit scheduling an injection for his neck. He feels he is doing reasonably well on his current medication regimen so we will continue that at present level. He denies any other changes in his health since we last seen him or any untoward side effects of the medication. I did discuss lifestyle modifications as well as a bowel regimen. He will return to clinic in 2 months to [...] effects are noted. Last UDS and [place] AUTOMOTIVE ELECTRICAL FITTER reviewed today. Patient is advised that best [...] to abide by our urine testing policy. 08/12/2025 Other mcfp (current) drug therapy (ICD-10 - Z79.899) 01/14/2025 Other Manoj Muller, am scribing for Dr. Adis Honeycutt. I, Dr. Adis Honeycutt, personally performed the services described in this documentation, as scribed by Manoj Sotomayor, and it is both accurate and complete. 08/12/2025 Other Roro Muller, am scribing for Dr. Adis Honeycutt. I, Dr. Adis Honeycutt, personally performed the services described in this documentation, as scribed by Roro Simon, and it is both accurate and complete. Plan Of Treatment Next Appt Details Provider Name:Zoe gray, 11/19/2025 01:20:00 PM, [address] [place], [address], Insurance Providers Payer Name Payer Address Payer Phone Subscriber Number Group Number Insured Name Patient Relationship to Insured Coverage Start Date Coverage End Date [id number] Medicare Advantage PPO [address] [address] [place] [address] [id number] Troy Goode Self - patient is the insured [place] Medicare [address] [address] [place] [address] [id number] Troy Goode Self - patient is the insured Medical (General) History Surgical History Surgery Date(Month/Year) Angiogram Since 2020 Back fusion x 2 Since 1990 Shoulder surgery left Since 1986 Knee Surgery left Since 1984 Skin Cancer/ Mass Removal- Left shoulder December 2023 Dr. Bill AMES Skin cancer surgeries face
--- OUTSIDE RECORDS SUMMARY | 2025-10-10 06:09 | XMS_ITS | Encounter Summary ---
Author Organization [facility] Address [address] [place] [address] Care Team Providers Care Take Out Waiter Name Role Phone Madeline Shields DO Primary Care Provider [phone]- [phone] Encounter Details Date Type Department Care Team (Latest Contact Info) Description 04/22/[facility] [address] [place] [address] Alok Rhoades MD NO ADDRESS ON FILE LUMBOSACRAL NEURITIS NOS (Primary Dx) Social History Tobacco Use Types Packs/Day Years Used Date Smoking Tobacco: Never Assessed Sex and Gender Information Value Date Recorded Sex Assigned at Not on file 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
--- OUTSIDE RECORDS SUMMARY | 2025-10-10 06:09 | XMS_ITS | Clinical Summary ---
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
--- OUTSIDE RECORDS SUMMARY | 2025-10-10 06:09 | XMS_ITS | Encounter Summary ---
Author Organization [facility] Address [address] [place] [address] Care Team Providers Care Bleach Range Operator Name Role Phone Madeline Shields DO Primary Care Provider +1- [phone] Reason for Referral * CT Scan (Routine) - Closed Specialty Diagnoses / Procedures Referred By Conttricia t Referred To Contact Radiology Diagnoses Cigarette nicotine dependence with nicotine-induced disorder Procedures CT LUNG SCREENING Madeline Shields DO Phone: tel: fax: [facility] [address] [address] Phone: tel: fax: Referral ID Status Reason Start Date Expiration Date V isits Requested Visits Authorized [id number] Closed [facility] TO SCHEDULE (SGF) 06/27/2019 07/27/2020 1 1 Encounter Details Date Type Department Care Team (Late st Contact Info) Description 06/27/2019 Ancillary Orders [facility] Pre-Registration [place] CALL TO MAKE APPOINTMENT ONLY [address] [place] [address] Madeline Shields DO [address] [place] [id number] Cigarette nicotine dependence with nicotine-induced disorder Social History Tobacco Use Types Packs/Day Years Used Date Smoking Tobacco: Never Assessed Sex and Gender Information Value Date Recorded Sex Assigned at Not on file 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
--- OUTSIDE RECORDS SUMMARY | 2025-10-10 06:09 | XMS_ITS | Encounter Summary ---
Author Organization [facility] Address [address] [place] [address] Care Team Providers Care Leather Belt Maker Name Role Phone Madeline Shields DO Primary Care Provider +1- [phone] Encounter Details Date Type Department Care Team (Latest Contact Info) Description 05/11/2004 Outpatient Historical [facility] Pain Management Procedures [address] [place] [address] Alok Rhoades MD NO ADDRESS ON FILE LUMBOSACRAL NEURITIS NOS (Primary Dx) Social History Tobacco Use Types Packs/Day Years Used Date Smoking Tobacco: Never Assessed Sex and Gender Information Value Date Recorded Sex Assigned at Not on file 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
--- OUTSIDE RECORDS SUMMARY | 2025-10-10 06:09 | XMS_ITS | Encounter Summary ---
Author Organization [facility] Address [address] [place] [address] Care Team Providers Care Pipe Coverer Name Role Phone Madeline Shields DO Primary Care Provider +1- [phone] Encounter Details Date Type Department Care Team (Latest Contact Info) Description 07/28/2004 Outpatient Historical [facility] [address] 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
--- OUTSIDE RECORDS SUMMARY | 2025-10-10 06:09 | XMS_ITS | Encounter Summary ---
Author Organization [facility] Address [address] [facility] Attn: [place] [address] Care Team Providers Care Director Integrated Name Role Phone Madeline Shields DO Primary Care Provider +1- [phone] Encounter Details Date Type Department Care Team [...] on filedocumented in this encounter Care Teams Director Integrated Relationship Specialty Start Date End Date Madeline Shields DO PCP - General Family Practice 07/02/19 documented as of this encounter
--- OUTSIDE RECORDS SUMMARY | 2025-10-10 06:09 | XMS_ITS | Encounter Summary ---
Author Organization [facility] Address [address] [place] [address] Care Team Providers Care Medical Record Coder Name Role Phone Madeline Shields DO Primary Care Provider +1- [phone] Encounter Details Date Type Department Care Team (Latest Contact Info) Description 01/06/2005 Outpatient Historical [facility] [address] 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
--- OUTSIDE RECORDS SUMMARY | 2025-10-10 06:09 | XMS_ITS | Encounter Summary ---
Author Organization [facility] Address [address] [place] [address] Care Team Providers Care Wet Sander Name Role Phone Madeline Shields DO Primary Care Provider +1- [phone] Encounter Details Date Type Department Care Team (Latest Contact Info) Description 07/21/2003 Outpatient Historical [facility] [address] [place] [address] Alok Rhoades MD NO ADDRESS ON FILE POSTLAMINECT SYND-LUMBAR (Primary Dx) Social History Tobacco Use Types Packs/Day Years Used Date Smoking Tobacco: Never Assessed Sex and Gender Information Value Date Recorded Sex Assigned at Not on file 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
--- OUTSIDE RECORDS SUMMARY | 2025-10-10 06:09 | XMS_ITS | Encounter Summary ---
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
--- OUTSIDE RECORDS SUMMARY | 2025-10-10 06:09 | XMS_ITS | Encounter Summary ---
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
--- OUTSIDE RECORDS SUMMARY | 2025-10-10 06:09 | XMS_ITS | Clinical Summary ---
Author Organization [facility] Address [address] [facility] Attn: [place] [address] Care Team Providers Care Industrial Electrician Name Role Phone Madeline Shields DO Primary Care Provider +1- [phone] Encounters Date Type Department Care Team Description 08/04/2025 [facility] [address] [place] [address] Liv Andres Bilateral hearing loss, unspecified hearing loss type (Primary Dx) from Last 3 Months Social History Tobacco Use Types Packs/Day Years Used Date Smoking Tobacco: Never Assessed Sex and Gender Information Value Date Recorded Sex Assigned at Not on file Legal Sex Male 2:[address] Gender Identity Not on file Sexual Orientation [...] - 1-dose 75+ series) 2037 Care Teams Industrial Electrician Relationship Specialty Start Date End Date Madeline Shields DO PCP - General Family Practice 07/02/19
--- OUTSIDE RECORDS SUMMARY | 2025-10-10 06:09 | XMS_ITS | Encounter Summary ---
Author Organization [facility] Address [address] [place] [address] Care Team Providers Care Work Checker Name Role Phone Madeline Shields DO Primary Care Provider +1- [phone] Encounter Details Date Type Department Care Team (Latest Contact Info) Description 07/28/2004 Outpatient Historical [facility] Pain Management Procedures [address] 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
--- OUTSIDE RECORDS SUMMARY | 2025-10-10 06:09 | XMS_ITS | Encounter Summary ---
Author Organization [facility] Address [address] [place] [address] Care Team Providers Care Financial Management Name Role Phone Madeline Shields DO Primary Care Provider +1- [phone] Encounter Details Date Type Department Care Team (Latest Contact Info) Description 11/19/[address] [facility] Pain Management Procedures [address] 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
--- OUTSIDE RECORDS SUMMARY | 2025-10-10 06:09 | XMS_ITS | Encounter Summary ---
Author Organization [facility] Address [address] [place] [address] Care Team Providers Care Account Support Specialist Name Role Phone Madeline Shields DO Primary Care Provider +1- [phone] Encounter Details Date Type Department Care Team (Latest Contact Info) Description 01/06/2005 Outpatient Historical [facility] Pain Management Procedures [address] 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
--- OUTSIDE RECORDS SUMMARY | 2025-10-10 06:09 | XMS_ITS | Encounter Summary ---
Author Organization [facility] Address [address] [place] [address] Care Team Providers Care Director Of Group Counseling Program Name Role Phone Madeline Shields DO Primary Care Provider +1- [phone] Encounter Details Date Type Department Care Team (Latest Contact Info) Description 11/04/[address] 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
--- OUTSIDE RECORDS SUMMARY | 2025-10-10 06:09 | XMS_ITS | Encounter Summary ---
Author Organization [facility] Address [address] [place] [address] Care Team Providers Care Trial Examiner Name Role Phone Madeline Shields DO Primary Care Provider +1- [phone] Encounter Details Date Type Department Care Team (Latest Contact Info) Description 01/30/2003 Outpatient Historical [facility] [address] [place] [address] Alok Rhoades MD NO ADDRESS ON FILE LUMBAGO (Primary Dx) Social History Tobacco Use Types Packs/Day Years Used Date Smoking Tobacco: Never Assessed Sex and Gender Information Value Date Recorded Sex Assigned at Not on file 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
--- OUTSIDE RECORDS SUMMARY | 2025-10-10 06:09 | XMS_ITS | Encounter Summary ---
Author Organization [facility] Address [address] [place] [address] Care Team Providers Care Acetylene Torch Burner Name Role Phone Madeline Shields DO Primary Care Provider +1- [phone] Encounter Details Date Type Department Care Team (Latest Contact Info) Description 01/30/2003 Outpatient Historical [facility] Pain Management Procedures [address] 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
--- OUTSIDE RECORDS SUMMARY | 2025-10-10 06:09 | XMS_ITS | Encounter Summary ---
Author Organization [facility] Address [address] [place] [address] Care Team Providers Care Proced Tech Name Role Phone Madeline Shields DO Primary Care Provider +1- [phone] Encounter Details Date Type Department Care Team (Latest Contact Info) Description 10/24/2004 Outpatient Historical [facility] [address] 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
--- OUTSIDE RECORDS SUMMARY | 2025-10-10 06:09 | XMS_ITS | Encounter Summary ---
Author Organization [facility] Address [address] [place] [address] Care Team Providers Care Cost Estimating Manager Name Role Phone Madeline Shields DO Primary Care Provider +1- [phone] Encounter Details Date Type Department Care Team (Latest Contact Info) Description 02/12/2004 Outpatient Historical [facility] [address] [place] [address] Alok Rhoades MD NO ADDRESS ON FILE LUMBOSACRAL NEURITIS NOS (Primary Dx) Social History Tobacco Use Types Packs/Day Years Used Date Smoking Tobacco: Never Assessed Sex and Gender Information Value Date Recorded Sex Assigned at Not on file 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
--- OUTSIDE RECORDS SUMMARY | 2025-10-10 06:09 | XMS_ITS | Encounter Summary ---
Author Organization [facility] Address [address] [place] [address] Care Team Providers Care Basting Cleaner Name Role Phone Madeline Shields DO Primary Care Provider +1- [phone] Encounter Details Date Type Department Care Team (Latest Contact Info) Description 10/24/2004 Outpatient Historical [facility] Pain Management Procedures [address] [place] [address] Alok Rhoades MD NO ADDRESS ON FILE LUMBOSACRAL NEURITIS NOS (Primary Dx) Social History Tobacco Use Types Packs/Day Years Used Date Smoking Tobacco: Never Assessed Sex and Gender Information Value Date Recorded Sex Assigned at Not on file 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
--- OUTSIDE RECORDS SUMMARY | 2025-10-10 06:09 | XMS_ITS | Encounter Summary ---
Author Organization [facility] Address [address] [place] [address] Care Team Providers Care Electric Plater Name Role Phone Madeline Shields DO Primary Care Provider [phone]- [phone] Encounter Details Date Type Department Care Team (Latest Contact Info) Description 01/06/2005 [facility] [address] 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
--- OUTSIDE RECORDS SUMMARY | 2025-10-10 06:09 | XMS_ITS | Encounter Summary ---
Author Organization [email or web address] Address [address] Attn: [place] [address] Care Team Providers Care Capacity Planning Engineer Name Role Phone Madeline Shields DO Primary Care Provider [phone]- [phone] Encounter Details Date Type Department Care Team (Late st Contact Info) Description 01/04/2001 Outpatient Historical Alok Rhoades MD NO ADDRESS ON FILE Social History Tobacco Use Types Packs/Day Years Used Date Smoking Tobacco: Never Assessed Sex and Gender Information Value Date Recorded Sex Assigned at Not on file 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
--- OUTSIDE RECORDS SUMMARY | 2025-10-10 06:09 | XMS_ITS | Encounter Summary ---
Author Organization [facility] Address [address] [place] [address] Care Team Providers Care Claim Specialist Name Role Phone Madeline Shields DO Primary Care Provider [phone]- [phone] Encounter Details Date Type Department Care Team (Latest Contact Info) Description 04/22/[address] 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
--- OUTSIDE RECORDS SUMMARY | 2025-10-10 06:09 | XMS_ITS | Encounter Summary ---
Author Organization [facility] Address [address] [place] [address] Care Team Providers Care Automotive Heavy Mechanic Name Role Phone Madeline Shields DO Primary Care Provider [phone]- [phone] Encounter Details Date Type Department Care Team (Latest Contact Info) Description 07/21/2003 Outpatient Historical [facility] Pain Management Procedures [address] 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
--- NOTE | 2025-10-10 06:11 | W.ED.GENADLT ---
HPI - General Adult General: Chief complaint: General Medical Stated complaint: HBP,headache,Knot on back and RT shoulder Time Seen by Provider: 10/10/25 06:04 History of Present Illness: 64-year-old man with a history of chronic pain syndrome on Ultram, tobacco dependence, peripheral artery disease, coronary artery disease, hyperlipidemia, type 2 diabetes, COPD, hypothyroidism and hypertension who presents to the emergency room with multiple complaints. His primary complaint seems to be high blood pressure. He also complains of neck and shoulder pain. He is having some low back pain. Drums some right sided abdominal pain. He has had a cough. He has had subjective fevers. Related Data Home Medications ?Medication ?Instructions ?Recorded ?Confirmed aspirin 81 mg tablet,delayed 81 mg PO DAILY@0900 02/16/21 09/11/25 release Vitamin D3 1 cap PO DAILY 02/22/21 09/11/25 empagliflozin 25 mg tablet 25 mg PO DAILY@09 02/22/21 09/11/25 (Jardiance) fluticasone propionate 50 1 spray intranasal DAILY PRN Runny 07/19/21 09/11/25 mcg/actuation nasal Nose spray,suspension (Allergy Relief (fluticasone)) Lantus U-100 Insulin 40 units SUBCUT DAILY 03/09/22 09/11/25 baclofen 20 mg tablet 20 mg PO TID 06/13/22 09/11/25 duloxetine 60 mg capsule,delayed 60 mg PO DAILY pain 06/13/22 09/11/25 release Vitamin B-12 1 cap PO DAILY 11/01/22 09/11/25 coenzyme Q10 100 mg chewable tablet 100 mg PO DAILY 07/19/23 09/11/25 lancets (Accu-Chek Softclix #100 ea 07/01/24 09/11/25 Lancets) metformin 500 mg tablet,extended 500 mg PO DAILY 07/01/24 09/11/25 release 24 hr pen needle, diabetic 31 gauge x #1,200 ea 07/01/24 09/11/25 5/16 (BD Ultra-Fine Short Pen Needle) semaglutide 0.25 mg or 0.5 mg (2 0.25 mg SUBCUT ONCE 07/01/24 09/11/25 mg/1.5 mL) subcutaneous pen injector (Ozempic) sucralfate 100 mg/mL oral 100 mg PO PRN PRN Acid Reflux 07/01/24 09/11/25 suspension lamotrigine 25 mg tablet 25 mg PO BID 08/04/24 09/11/25 pregabalin 75 mg capsule 75 mg PO TID 08/04/24 09/11/25 folic acid 1 mg tablet 1 mg PO DAILY 12/24/24 09/11/25 ferrous sulfate 325 mg (65 mg 325 mg PO BID 01/30/25 09/11/25 iron) tablet (FeroSul) Potassium PO 03/05/25 09/11/25 bupropion HCl 75 mg tablet 75 mg PO TID 04/28/25 09/11/25 Previous Rx's ?Medication ?Instructions ?Recorded pen needle, diabetic 29 gauge x #50 ea 12/22/1910/23 (Comfort EZ Pen [place]) albuterol sulfate 90 mcg/actuation 2 puff inhalation Q6H PRN 01/16/20 aerosol inhaler (ProAir HFA) Shortness Of Breath #8.5 grams blood-glucose meter (CentaurTouch 08/26/21 Ultra2 Meter) lancets 30 gauge (OneTouch Delica #100 ea 08/26/21 Lancets) blood sugar diagnostic (OneTouch #300 ea 08/29/21 Ultra Test strips) tamsulosin 0.4 mg capsule 0.4 mg PO BID #60 caps 09/30/21 furosemide 20 mg tablet (Lasix) 20 mg PO DAILY PRN Edema #90 tabs 10/31/21 azelastine 137 mcg (0.1 %) nasal 2 spray intranasal BID Runny Nose 01/17/22 spray 30 days #30 mL mupirocin 2 % topical ointment 1 applic topical BID #22 grams 07/14/22 fluticasone fur. 100 mcg-umeclid 1 inh inhalation DAILY #60 ea 01/19/23 62.5 mcg-vilant 25 mcg inhalat.powder (Trelegy Ellipta) Diabetic shoes with 3 pairs of #1 ea 04/17/23 inserts atorvastatin 40 mg tablet 40 mg PO BEDTIME@2100 #90 tabs 10/24/23 Diabetic Shoes 3 x inserts #1 ea 02/03/25 diabetic shoes with 3 inserts #1 ea 02/03/25 celecoxib 100 mg capsule (Celebrex) 100 mg PO BID PRN pain #180 caps 03/02/25 diclofenac sodium 1 % topical gel 4 g topical QID #100 grams 03/02/25 tramadol 100 mg tablet 100 mg PO Q6H PRN pain #20 tabs 06/15/25 tramadol 50 mg tablet See Rx Instructions PO Q6H PRN 06/17/25 pain #28 tabs nitroglycerin 2 % transdermal See Rx Instructions .Route 07/14/25 ointment (Nitro-Bid) .COMPLEX #30 grams cefdinir 300 mg capsule 300 mg PO BID 10 days #20 caps 10/10/25 Allergies Allergy/AdvReac Type Severity Reaction Status Date / Time amitriptyline Allergy ALGY-Conges Verified 09/11/25 07:23 sonia temazepam Allergy ALGY-Conges Verified 09/11/25 07:23 sonia codeine AdvReac ADR-Gastrointestinal Verified 09/11/25 07:23 Upset oxycodone AdvReac ADR-Gastrointestinal Verified 09/11/25 07:23 Upset Review of Systems Narrative: Constitutional symptoms: Negative except as documented in HPI. Skin symptoms: Negative except as documented in HPI. Eye symptoms: Negative except as documented in HPI. ENMT symptoms: Negative except as documented in HPI. Respiratory symptoms: Negative except as documented in HPI. Cardiovascular symptoms: Negative except as documented in HPI. Gastrointestinal symptoms: Negative except as documented in HPI. Genitourinary symptoms: Negative except as documented in HPI. Musculoskeletal symptoms: Negative except as documented in HPI. Neurologic symptoms: Negative except as documented in HPI. Psychiatric symptoms: Negative except as documented in HPI. Endocrine symptoms: Negative except as documented in HPI. PFSH ED PFSH: Medical History (Updated 10/10/25 @ 08:27 by Margaret Kitchen MD) Primary osteoarthritis of knees, bilateral Degenerative joint disease of spine Smoker unmotivated to quit PAD (peripheral artery disease) NSTEMI (non-ST elevated myocardial infarction) Chronic neck and back pain Heart failure with preserved ejection fraction Echo 12/04/20 EF 55% Allergic rhinosinusitis Neurogenic bladder Iron deficiency anemia Vitamin D deficiency Dyslipidemia COPD, moderate Controlled type 2 diabetes mellitus, without long-term current use of insulin Essential (primary) hypertension Hypothyroidism, unspecified Gastritis Surgical History H/O oral surgery Teeth extracted H/O circumcision H/O colonoscopy 11/20/2016 H/O esophagogastroduodenoscopy 2015 History of back surgery Lumbar laminectomy x 2 Family History Father Diabetes Stroke Bleeding disorder Mother Diabetes Cancer SKIN Other CAD (coronary artery disease) Lung disease Denies family history of Anesthesia complication Social History Smoking and tobacco/nicotine status: current every day tobacco/nicotine user cigarettes Packs smoked per day: 0.25 Years cigarettes smoked: 45 [ Other cigarette details: started at age 10 years, smoked 1ppd until 51 years] Quit status (tobacco/nicotine): has tried quititng Alcohol intake: never Substance/Drug Use: never Lives independently: Yes Household members: spouse Marital status: Current occupational status: disabled Do you think of yourself as: Straight/Heterosexual Current gender identity: Male Physical Exam Narrative: EXAM NARRATIVE: General: Alert, no acute distress. Skin: Warm, dry. Head: Normocephalic, atraumatic. Neck: Supple, trachea midline. Eye: Extraocular movements are intact. Ears, nose, mouth and throat: mucosa moist. Cardiovascular: Regular, Normal peripheral perfusion. Respiratory: Lungs are clear to auscultation, respirations are non-labored, breath sounds are equal, Symmetrical chest wall expansion. Gastrointestinal: Soft, Nontender, Non distended Musculoskeletal: Normal ROM, no deformity. Neurological: Alert and oriented, No focal neurological deficit observed. Psychiatric: Cooperative, appropriate mood & affect. Course Vital Signs: Vital signs: Vital Signs Temperature 98.2 F 10/10/25 06:03 Pulse Rate 77 10/10/25 08:00 Respiratory Rate 18 10/10/25 06:45 Blood Pressure 136/83 10/10/25 08:00 Pulse Oximetry 97 10/10/25 08:00 Oxygen Delivery Me thod Room Air 10/10/25 06:45 MDM - General Adult Medical Decision Making Medical decision making Patient's reason for coming to the emergency room: Hypertension, headache, neck pain, multiple other complaints Social determinants: Patient presents with his . He is disabled I reviewed the patient's medical record. 64-year-old man with a history of chronic pain syndrome on Ultram, tobacco dependence, peripheral artery disease, coronary artery disease, hyperlipidemia, type 2 diabetes, COPD, hypothyroidism and hypertension I reviewed the patient's current home meds Patient reports being on tramadol chronically. Alternate historians: None Differential diagnosis including but not limited to and based on the above HPI, review of systems and physical exam: Patient presents with hypertension: Essential hypertension. Stroke. acute coronary syndrome. kidney failure. congestive heart failure. anxiety. Orders placed to evaluate differential diagnosis based on the above differential, HPI and physical exam EKG: Time 6:16 AM. Rate 91. Normal sinus rhythm, No ST-T changes, no ectopy, normal MD & QRS intervals, This was reviewed and interpreted by myself the ER physician at 6:20 AM EKG: Time 7:13 AM. Rate 82. Normal sinus rhythm, No ST-T changes, no ectopy, normal MD & QRS intervals, This was reviewed and interpreted by myself the ER physician at 7:15 AM Chest x-ray: No acute process. No infiltrate. No pneumothorax. This was reviewed and interpreted by myself the emergency room physician. I also reviewed the radiology report. Lab Review: Laboratory results were reviewed and interpreted by myself the emergency room physician. Mild leukocytosis. No anemia. Mild renal insufficiency. Urine is nitrate positive, 50-100 whites with 4+ bacteria. Flu COVID and RSV negative Assessment of risk: Level of risk: Moderate risk patient. Multiple comorbidities. Disabled. Hospitalization considerations: No indication for hospitalization today. Reexamination: Patient remained stable. No increased work of breathing. No altered mental status. No focal motor deficits. Blood pressure has improved spontaneously Assessment and plan: Urinary tract infection Hypertension Dehydration ?Rocephin and normal saline in the emergency room - Discharged home - Discussed plan with patient. Answered any questions. - Evaluation and treatment of this problem were appropriate in the emergency setting. Lab Data 10/10/25 06:15 10/10/25 06:15 Radiology Impressions Chest X-Ray 10/10/25 06:09 IMPRESSION: No acute findings. Laboratory Results WBC 12.21 10^3/uL (3.29-11.43) H 10/10/25 06:15 RBC 4.67 10^6/uL (3.85-5.65) 10/10/25 06:15 Hgb 12.80 g/dL (11.27-16.99) 10/10/25 06:15 Hct 41.1 % (37-53) 10/10/25 06:15 MCV 88.0 fl (82-101) 10/10/25 06:15 MCH 27.4 pg (27-33) 10/10/25 06:15 MCHC 31.1 g/dL (30-55) 10/10/25 06:15 RDW 16.6 % (12.1-15.1) H 10/10/25 06:15 Plt Count 242 10^3/cmm (157-399) 10/10/25 06:15 MPV 11.5 fL (7.4-10.4) H 10/10/25 06:15 Neut % (Auto) 51.0 % 10/10/25 06:15 Lymph % (Auto) 38.7 % 10/10/25 06:15 [place] % (Auto) 6.9 % 10/10/25 06:15 Eos % (Auto) 2.5 % 10/10/25 06:15 Baso % (Auto) 0.6 % 10/10/25 06:15 Neut # (Auto) 6.24 10^3/uL (1.8-7.7) 10/10/25 06:15 Lymph # (Auto) 4.7 10^3/uL (0.8-4.8) 10/10/25 06:15 [place] # (Auto) 0.8 10^3/uL (0.2-0.9) 10/10/25 06:15 Eos # (Auto) 0.3 10^3/uL (0.0-0.8) 10/10/25 06:15 Baso # (Auto) 0.1 10^3/uL (0.0-0.1) 10/10/25 06:15 Nucleated RBC % (auto) 0 % 10/10/25 06:15 Nucleated RBCs # 0.0 /100WBC 10/10/25 06:15 Sodium 139 mmol/L (136-145) 10/10/25 06:15 Potassium 4.1 mmol/L (3.5-5.1) 10/10/25 06:15 Chloride 101 mmol/L (98-107) 10/10/25 06:15 Carbon Dioxide 24 mmol/L (22-29) 10/10/25 06:15 Anion Gap 18.1 (5-19) 10/10/25 06:15 BUN 16 mg/dL (8-23) 10/10/25 06:15 Creatinine 1.3 mg/dL (0.7-1.2) H 10/10/25 06:15 GFR Calculation 55.9 mL/min (90-130) L 10/10/25 06:15 Glucose 195 mg/dL (65-115) H 10/10/25 06:15 Calculated Osmolality 295 mOsm/kg (285-295) 10/10/25 06:15 Lactic Acid 1.6 mmol/L (0.5-2.2) 10/10/25 06:15 Calcium 9.7 mg/dL (8.5-10.5) 10/10/25 06:15 Total Bilirubin 0.3 mg/dL (0.15-1.2) 10/10/25 06:15 AST 14 U/L (0-40) 10/10/25 06:15 ALT 13 U/L (0-41) 10/10/25 06:15 Alkaline Phosphatase 191 U/L (40-130) H 10/10/25 06:15 Troponin T Baseline 25 ng/L (0-15) H 10/10/25 06:15 Troponin T 60 Minute 20.73 ng/L (0-15) H 10/10/25 07:10 Delta Troponin T -4.27 ABS# (0-10) L 10/10/25 07:10 Total Protein 7.1 g/dL (6.6-8.7) 10/10/25 06:15 Albumin 5.2 g/dL (3.5-5.2) 10/10/25 06:15 Globulin 1.9 g/dL (1.3-4.6) 10/10/25 06:15 Procalcitonin 0.08 ng/mL (0-0.5) 10/10/25 06:15 Urine Color Yellow (Yellow) 10/10/25 06:47 Urine Appearance Clear (CLEAR) 10/10/25 06:47 Urine pH 6.0 (5-7) 10/10/25 06:47 Ur Specific [place] 1.026 (1.005-1.030) 10/10/25 06:47 Urine Protein Negative (Negative) 10/10/25 06:47 Urine Glucose (UA) 3+ (Normal) H 10/10/25 06:47 Urine Ketones Negative (Negative) 10/10/25 06:47 Urine Blood Negative (Negative) 10/10/25 06:47 Urine Nitrate Positive (Negative) A 10/10/25 06:47 Urine Bilirubin Negative (Negative) 10/10/25 06:47 Urine Urobilinogen 0.2 mg/dL (Negative) 10/10/25 06:47 Ur Leukocyte Esterase Negative (Negative) 10/10/25 06:47 Urine RBC 0-2 /hpf (0-2) 10/10/25 06:47 Urine WBC 51-100 /hpf (0-5) H 10/10/25 06:47 Ur Squamous Epith Cells 0-5 /hpf (0-5) 10/10/25 06:47 Amorphous Sediment Not Reportable 10/10/25 06:47 Urine Bacteria 4+ /hpf (NONE) H 10/10/25 06:47 Hyaline Casts 0-4 /lpf H 10/10/25 06:47 Influenza A (PCR) Negative (Negative) 10/10/25 06:25 Influenza Type B (PCR) Negative (Negative) 10/10/25 06:25 RSV (PCR) Negative (Negative) 10/10/25 06:25 SARS-CoV-2 (PCR) Negative (Negative) 10/10/25 06:25 All radiology interpretation(s) finalized by discharge Discharge Plan Discharge Patient Disposition: Home Clinical Impression: Urinary tract infection, Hypertension, Dehydration Condition: Stable Prescriptions: New cefdinir 300 mg capsule 300 mg PO BID 10 Days Qty: 20 0RF No Action furosemide [Lasix] 20 mg tablet 20 mg PO DAILY PRN (Reason: Edema) Qty: 90 3RF fluticasone propionate [Allergy Relief (fluticasone)] 50 mcg/actuation spray,suspension 1 spray intranasal DAILY PRN (Reason: Runny Nose) Rx Instructions: administer into each nostril azelastine 137 mcg (0.1 %) aerosol,spray 2 spray INTRANASAL BID 30 Days Qty: 30 6RF Rx Instructions: administer into each nostril (DME) Diabetic shoes with 3 pairs of inserts See Rx Instructions .Route .MEDSUPPLY Qty: 1 0RF Rx Instructions: As directed Ozempic 0.25 mg or 0.5 mg(2 mg/1.5 mL) pen injector 0.25 mg SUBCUT ONCE celecoxib [Celebrex] 100 mg capsule 100 mg PO BID PRN (Reason: pain) Qty: 180 0RF Rx Instructions: Hold medications if any stomach upset, increased heartburn or belly pain occurs. diclofenac sodium 1 % gel 4 g topical QID Qty: 100 0RF Rx Instructions: apply to single knee, ankle, foot; for foot includes sole/toes/top of foot baclofen 20 mg tablet 20 mg PO TID duloxetine 60 mg capsule,delayed release(DR/EC) 60 mg PO DAILY Vitamin B-12 1 cap PO DAILY Trelegy Ellipta 100-62.5-25 mcg blister with device 1 inh inhalation DAILY Qty: 60 3RF coenzyme Q10 100 mg tablet,chewable 100 mg PO DAILY lamotrigine 25 mg tablet 25 mg PO BID metformin 500 mg tablet extended release 24 hr 500 mg PO DAILY sucralfate 100 mg/mL suspension 100 mg PO PRN PRN (Reason: Acid Reflux) (DME) lancets [Accu-Chek Softclix Lancets] Misc See Rx Instructions .ROUTE .MEDSUPPLY Qty: 100 Rx Instructions: As directed (DME) pen needle, diabetic [BD Ultra-Fine Short Pen Needle] 31 gauge x 5/16 needle See Rx Instructions .ROUTE .MEDSUPPLY Qty: 1200 Rx Instructions: As directed pregabalin 75 mg capsule 75 mg PO TID Potassium PO folic acid 1 mg tablet 1 mg PO DAILY ferrous sulfate [FeroSul] 325 mg (65 mg iron) tablet 325 mg PO BID (DME) diabetic shoes with 3 inserts See Rx Instructions .Route .MEDSUPPLY Qty: 1 0RF Rx Instructions: As directed to the shoe gutania (DME) Diabetic Shoes 3 x inserts See Rx Instructions .Route .MEDSUPPLY Qty: 1 0RF Rx Instructions: As directed by [employer] [place] bupropion HCl 75 mg tablet 75 mg PO TID Rx Instructions: administer 6 hours apart nitroglycerin [Nitro-Bid] 2 % ointment See Rx Instructions .ROUTE .COMPLEX Qty: 30 0RF Dose Instruction: APPLY 0.5INCH TOPICALLY TWICE DAILY Rx Instructions: APPLY 0.5INCH TOPICALLY TWICE DAILY (DME) pen needle, diabetic [Comfort EZ Pen [place]] 29 gauge x 1/2 needle See Rx Instructions .ROUTE .MEDSUPPLY Qty: 50 2RF Rx Instructions: As directed for Novalog and Levemir albuterol sulfate [ProAir HFA] 90 mcg/actuation HFA aerosol inhaler 2 puff INHALATION Q6H PRN (Reason: Shortness Of Breath) Qty: 8.5 0RF (DME) blood-glucose meter [OneTouch Ultra2 Meter] Misc See Rx Instructions .ROUTE .MEDSUPPLY 5RF Rx Instructions: FOUR DAILY (DME) lancets [OneTouch Delica Lancets] 30 gauge misc See Rx Instructions .Route Qty: 100 0RF Rx Instructions: As directed (DME) OneTouch Ultra Test Strip See Rx Instructions .ROUTE .MEDSUPPLY Qty: 300 3RF Rx Instructions: use 3 times daily in one touch meter 90 day supply tamsulosin 0.4 mg capsule 0.4 mg PO BID Qty: 60 12RF mupirocin 2 % ointment 1 applic topical BID Qty: 22 1RF Rx Instructions: Apply to affected area(s) until healed atorvastatin 40 mg tablet 40 mg PO BEDTIME@2100 Qty: 90 3RF tramadol 50 mg tablet See Rx Instructions PO Q6H PRN (Reason: pain) Qty: 28 0RF Rx Instructions: Take 1-2 tabs orally every 6 hours PRN; Lantus U-100 Insulin 44 units pen injector 40 units SUBCUT DAILY aspirin 81 mg tablet,delayed release (DR/EC) 81 mg PO DAILY@0900 Jardiance 25 mg tablet 25 mg PO DAILY@09 Vitamin D3 1 cap PO DAILY tramadol 100 mg tablet 100 mg PO Q6H PRN (Reason: pain) Qty: 20 0RF Discharge Orders: Discharge ED (Routine); Ordered 10/10/25 Ordered By: Margaret Kitchen Referrals: Tammi Ames MD [Primary Care Provider, Internal Medicine] Discharge Diet: Usual diet Discharge Activity: Increase activity as tolerated Patient Instructions: Urinary Tract Infection in Older Adults (ED), Opioid Safety, Pain Management, Patient Portal & Asa Instructions Activity Restrictions/Additional Instructions: Thank you for choosing [facility] for your healthcare needs today. You have been screened and evaluated and felt safe for discharge. Health conditions do change or evolve sometimes and as such it is important that you follow up with your Primary Doctor to be re checked, 3-5 days is a general good time frame for follow up. You are always welcome to return to the ED for re assessment if your symptoms are worsening or you have new concerns. (Please note that included in your discharge packet is information concerning opioid safety and pain management. This information is given to all patients who are discharged from the ER regardless of their discharge diagnosis or the medicines they usually take or are prescribed.) Print Language: Danish Coding Level of Care Code ED Wool Mixer for Jens Boone
[2025-10-10 06:12] VITALS: BP 171/96; PULSE 93; RESP 18; O2SAT 95
[2025-10-10 06:24] LABS: Hematocrit 41.1 % (37-53); Hemoglobin 12.80 g/dL (11.27-16.99); Mean Corpuscular HGB Conc 31.1 g/dL (30-55); Mean Corpuscular Hemoglobin 27.4 pg (27-33); Mean Corpuscular Volume 88.0 fl (82-101); Nucleated Red Blood Cells % 0 %; Platelet Count 242 10^3/cmm (157-399); Red Blood Count 4.67 10^6/uL (3.85-5.65); White Blood Count 12.21 10^3/uL (3.29-11.43)
[2025-10-10 06:45] VITALS: BP 132/86; PULSE 97; RESP 18; O2SAT 96
[2025-10-10 06:46] LABS: Troponin(5th) Baseline 25 ng/L (0-15)
[2025-10-10 06:47] LABS: Lactic Sepsis W/Reflex 1.6 mmol/L (0.5-2.2)
[2025-10-10 06:48] LABS: Alanine Aminotransferase 13 U/L (0-41); Albumin Level 5.2 g/dL (3.5-5.2); Alkaline Phosphatase 191 U/L (40-130); Anion Gap 18.1 (5-19); Aspartate Amino Transferase 14 U/L (0-40); Blood Urea Nitrogen 16 mg/dL (8-23); Calcium 9.7 mg/dL (8.5-10.5); Carbon Dioxide 24 mmol/L (22-29); Chloride 101 mmol/L (98-107); Globulin 1.9 g/dL (1.3-4.6); Glucose 195 mg/dL (65-115); Osmolality Calculated 295 mOsm/kg (285-295); Potassium 4.1 mmol/L (3.5-5.1); Sodium 139 mmol/L (136-145); Total Protein 7.1 g/dL (6.6-8.7)
[2025-10-10 06:55] LABS: Procalcitonin 0.08 ng/mL (0-0.5)
--- NOTE | 2025-10-10 07:10 | ECG_ITS ---
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
[2025-10-10 07:18] LABS: Glucose Urine UA 3+ (Normal); Nitrate Urine Positive (Negative); Specific Gravity, Urine 1.026 (1.005-1.030)
[2025-10-10 07:30] VITALS: BP 137/83; PULSE 81; O2SAT 96
[2025-10-10 07:36] LABS: Respiratory Syncytial Virus Ce NEGATIVE (Negative); SARS-CoV-2 PCR NEGATIVE (Negative)
[2025-10-10 08:00] VITALS: BP 136/83; PULSE 77; O2SAT 97
[2025-10-10 08:11] LABS: UA Slide Review UA Slide Review Perf
[2025-10-10] MEDS: cefTRIAXone 1,000 mg SDV 1000 MG IVP (08:39)
[2025-10-10 09:25] VITALS: BP 132/68; PULSE 85; O2SAT 95
== END 2025-10-10 09:27 | disposition home or self-care (01) ==
PROVIDERS: Emergency Provider Emergency Medicine; PCP Internal Medicine
DX: N39.0 Urinary tract infection, site not specified (principal); E86.0 Dehydration; Z79.84 Long term (current) use of oral hypoglycemic drugs; Z79.82 Long term (current) use of aspirin; Z11.52 Encounter for screening for COVID-19; F17.210 Nicotine dependence, cigarettes, uncomplicated; J44.9 Chronic obstructive pulmonary disease, unspecified; E78.5 Hyperlipidemia, unspecified; I11.0 Hypertensive heart disease with heart failure; I50.30 Unspecified diastolic (congestive) heart failure; I25.10 Atherosclerotic heart disease of native coronary artery without angina pectoris
CPT/HCPCS: 36415; 71045; 80053; 81001; 83605; 84145; 84484; 85025; 87040; 87077; 87086; 87186; 87637; 93005; 96374; 99285; J0696; J7030

== ENCOUNTER → 2025-10-19 12:24 | Outpatient (BNVA) | payer MEDICARE, SELFPAY | PROVIDERS: PCP Internal Medicine; Visit Provider Internal Medicine | DX: I11.0 Hypertensive heart disease with heart failure (principal); I50.30 Unspecified diastolic (congestive) heart failure; I73.9 Peripheral vascular disease, unspecified; R07.9 Chest pain, unspecified; F17.210 Nicotine dependence, cigarettes, uncomplicated; I25.2 Old myocardial infarction | CPT/HCPCS: 99214 ==